=== PATIENT | male | born 1930 | race Caucasian/White ===

== ENCOUNTER 2017-02-22 10:38 | Emergency (ER) | payer BC, OTHER ==
[2017-02-22 10:54] VITALS: BP 153/80; PULSE 93; TEMP 97.3; BMI 28.1
--- NOTE | 2017-02-22 11:30 | PDOC ---
History of Present Illness - General History Source: Patient, Old Records Exam Limitations: No Limitations <Lobo Cobb - Last Filed: 02/22/17 14:41> <Markus Rivera - Last Filed: 02/23/17 16:58> - General Chief Complaint: Chest Pain Stated Complaint: CHEST PAIN Time Seen by Provider: 02/22/17 11:22 - History of Present Illness Initial Comments: The patient is a 86 year old male, former smoker, with a significant past medical history of HTN, hypercholesterolemia and CAD s/p coronary bypass, who presents to the emergency department today for further evaluation of chest pain just prior to presenting. The patient states that he was cleaning his car when he began to experience rapid onset chest pain and was associated with diaphoresis. The patient described his episode of chest pain as right sided, 10 minutes in duration, and squeezing/tightness in sensation but notes that his pain has resolved. He states that his chest pain was moderately alleviated when taking deep breaths and did not note any exacerbating factors. He reports associated frontal lobe headache that has since resolved. The patient states that he does not follow with a securities settlement processor and has not seen a securities settlement processor since his open heart surgery (2012). PT violetta any recent exertioanl chest pain or shortness of breath. The patient denies fever, cough, and cold symptoms. The patient denies nausea, vomiting, and diarrhea. The patient denies lightheadedness, cough, and shortness of breath. PCP: Dr. Anmol Casey [phone] PAST MEDICAL HISTORY: HTN, hypercholesterolemia and CAD s/p coronary bypass PAST SURGICAL HISTORY: Coronary bypass (2012) FAMILY HISTORY: Noncontributory SOCIAL HISTORY: Former smoker MEDICATIONS: Reviewed ALLERGIES: As per nursing notes (Lobo Cobb) Past History <Lobo Cobb - Last Filed: 02/22/17 14:41> - Past Medical History Cardiac Disorders: Yes (bypass) HTN: Yes Hypercholesterolemia: Yes - Surgical History Cardiac Surgery: Yes (OPEN HEART SX) - Psycho/Social/Smoking Cessation Hx Anxiety: No Suicidal Ideation: No Smoking Status: No Smoking History: Former smoker Have you smoked in the past 12 months: No Number of Cigarettes Smoked Daily: 0 Information on smoking cessation initiated: No Hx Alcohol Use: No Drug/Substance Use Hx: No <Errol Riveraan - Last Filed: 02/23/17 16:58> - Past Medical History Allergies/Adverse Reactions: Allergies Allergy/AdvReac Type Severity Reaction Status Date / Time No Known Allergies Allergy Verified 02/22/17 10:50 Home Medications: Ambulatory Orders Lisinopril 10 mg PO DAILY 02/22/17 Review of Systems - Review of Systems Able to Perform ROS?: Yes <Lobo Cobb - Last Filed: 02/22/17 14:41> <Markus Rivera - Last Filed: 02/23/17 16:58> - Review of Systems Comments:: CONSTITUTIONAL: Reported: Diaphoresis No reported: Fever, Chills, Generalized Weakness, Malaise, Loss of Appetite HEENT: No reported: Rhinorrhea, Nasal Congestion, Throat Pain, Throat Swelling, Difficulty Swallowing, Mouth Swelling, Ear Pain, Eye Pain, Visual Changes CARDIOVASCULAR: Reported: Chest pain No reported: Syncope, Palpitations, Irregular Heart Rate, Lightheadedness, Peripheral Edema RESPIRATORY: No reported: Cough, Shortness of Breath, SOB with Exertion, Orthopnea, Wheezing , Stridor, Hemoptysis GASTROINTESTINAL: No reported: Abdominal pain, Abdominal Distension, Nausea, Vomiting, Diarrhea, Constipation, Melena, Hematochezia GENITOURINARY: No reported: Dysuria, Frequency, Urgency, Hesitancy, Flank Pain, Genital Pain MUSCULOSKELETAL: No reported: Myalgia, Arthralgia, Joint Swelling, Back pain, Neck Pain SKIN: No reported: Rash, Itching, Pallor HEMATOLOGIC/IMMUNOLOGIC: No reported: Easy Bleeding, Easy Bruising, Lymphadenopathy, Frequent infections ENDOCRINE: No reported: Unexplained Weight Gain, Unexplained Weight Loss, Heat Intolerance , Cold Intolerance NEUROLOGIC: Reported: Headache No reported: Focal Weakness, Paresthesias, Vertigo, Lightheadedness, Unsteady Gait, Seizure, Mental Status Changes, Incontinence PSYCHIATRIC: No reported: Anxiety, Depression (Lobo Cobb) *Physical Exam <Lobo Cobb - Last Filed: 02/22/17 14:41> <Markus Rivera - Last Filed: 02/23/17 16:58> - Vital Signs Last Vital Signs Temp Pulse Resp BP Pulse Ox 97.3 F L 93 H 19 153/80 98 02/22/17 10:50 02/22/17 10:50 02/22/17 10:50 02/22/17 10:50 02/22/17 10:50 - Physical Exam Comments: GENERAL: The patient is awake, alert, and fully oriented, Nontoxic - in no acute distress. HEAD: Normocephalic, atraumatic. EYES: extraocular movements intact, sclera anicteric, conjunctiva clear. ENT: Normal voice, Moist mucous membranes. NECK: Normal range of motion, No JVD LUNGS: Breath sounds equal, clear to auscultation bilaterally. No wheezes, no rhonchi, no rales. HEART: Regular rate, regular rhythm, normal S1 and S2 without murmur, rub or gallop. s/p cabg ABDOMEN: Soft, nontender, normoactive bowel sounds. No guarding, no rebound. No masses. No CVA tenderness EXTREMITIES: Normal range of motion, no edema. No clubbing or cyanosis. No cords , erythema, or tenderness. NEUROLOGICAL: No facial asymmetry, Normal speech, normal gait. PSYCH: Normal mood, normal affect. SKIN: Warm, Dry, normal turgor. (Lobo Cobb) Heart Score/ECG Review <Lobo Cobb - Last Filed: 02/22/17 14:41> - History History: Slightly suspicious - Electrocardiogram EKG: Non specific repolarization disturbance - Age Age: >/= 65 - Risk Factors Risk Factors Heart Score: Yes Hx Hypercholesterolemia, Yes Hx Hypertension, Yes Hx Obesity Based on the list above the patient has:: >/=3 risk factors or Hx atherosclerotic disease <Markus Rivera - Last Filed: 02/23/17 16:58> - ECG Impressions Comment:: 02/22/17 12:03 Twelve-lead EKG was performed and reviewed by me. There is normal sinus rhythm with a normal rate. rate of 86 left axis deviation left bundle branch block (Markus Rivera) ED Treatment Course - LABORATORY CBC & Chemistry Diagram: 02/22/17 11:40 02/22/17 12:50 <Lobo Cobb - Last Filed: 02/22/17 14:41> - LABORATORY CBC & Chemistry Diagram: 02/22/17 11:40 02/22/17 12:50 <Markus Rivera - Last Filed: 02/23/17 16:58> - ADDITIONAL ORDERS Additional order review: 02/22/17 11:40 RBC 4.93 MCV 88.6 MCHC 33.0 RDW 14.2 MPV 9.8 Neutrophils % 57.8 Lymphocytes % 25.9 Monocytes % 10.2 Eosinophils % 5.2 H Basophils % 0.9 - RADIOLOGY Radiology Studies Ordered: Category Date Time Status CHEST X-RAY PORTABLE* [RAD] Stat Radiology 02/22/17 11:33 Completed Radiograph Interpretation: EXAM#: TYPE/EXAM: RESULT: [id number] RAD/CHEST X-RAY PORTABLE* Chest pain. Single AP portable chest x-ray. Comparison study June 22, 2014. Sternal wires. No evidence of pneumonia, CHF, pleural effusion or pneumothorax. Unremarkable contour of the cardiomediastinal silhouette. The right diaphragm is slightly elevated. Intact visualized osseous structures. Impression. No evidence of active pulmonary disease. Reported By: Chun Vasquez MD 02/22/17 1157 (Lobo Cobb) - Medications Given in the ED: ED Medications Discontinued Medications Generic Name Dose Route Start Last Admin Trade Name Freq PRN Reason Stop Dose Admin Aspirin 162 mg 02/22/17 11:33 02/22/17 11:49 Asa - PO 02/22/17 11:34 162 mg ONCE ONE Administration Medical Decision Making <Lobo Cobb - Last Filed: 02/22/17 14:41> <Markus Rivera - Last Filed: 02/23/17 16:58> - Medical Decision Making 02/22/17 14:19 Dr. Casey paged overhead. 02/22/17 14:19 Dr. Casey returned page. Case discussed. Agreed to admit. Patient wants to leave against medical advice. (Lobo Cobb) 02/22/17 14:23 86y M hxof CAD presents with R sided chest pressure associated with diaphoresis just prior to presentation. symptoms lasted for 15-20 minutes and had resolved by the itme he came to the ED. The pt denies any complaints currently. His exam is unremarkable. pts ekg shows Left axis devation and left bundle branch block pts trop is negative x 1 pt given ASA plan is to observe the patiene due to significant cardiac history case dw dr. Casey - agree with observation stay due to concern for ACS dr. casey states pt is noncomplaint and hasnt followed up reguarly with a securities settlement processor after discussion with the patient, he declines to stay in the hospital. he also declines obtaining a repeat troponing. i had an extensive discussion wiht the patient regarding the inability to rule out any cardiac disease with one troponin, and that even if he had a large GA, the initial troponin may be negative the pt states he understands but still declines to stay. the pt is alert and oriented x 3, and i beleive the has the capacity to understand the risks and benefits of his decision will have the pt follow u pwith dr. casey and cardiology the pt was made aware that he can return at any time to complete his workup. Patient is alert and oriented, and expressed that they would like to leave AGAINST MEDICAL ADVICE. I discussed with them the risks of leaving include , missed/delayed diagnosis of myocardial infarction, permanent disability. Patient states he would like to leave because he feels fine and has already been here for 4 hours. I believe that the patient understands our discussion and is capable of making an informed decision about leaving against medical advice. I also discussed with the patient that they may return at any time to complete their workup. (Markus Rivera) *DC/Admit/Observation/Transfer <WadesofyaLobo - Last Filed: 02/22/17 14:41> - Discharge Dispostion Admit: No <Markus Rivera - Last Filed: 02/23/17 16:58> Diagnosis at time of Disposition: Chest pain Qualifiers: Chest pain type: unspecified Qualified Code(s): R07.9 - Chest pain, unspecified - Referrals Referrals: Anmol Casey MD [Primary Care Provider] - Roosevelt Ashraf MD [Staff Physician] - - Patient Instructions Printed Discharge Instructions: DI for Chest Pain Additional Instructions: You are electing to leave against medical advice. We have not completed our workup for your complaint of chest pain, and the tests we have done so far DOES NOT MEAN you are fine nor your heart is healthy. You may return at any time to complete your workup and you should follow up with dr. Casey and Dr. Ashraf as soon as possible to ensure your heart is healthy. Continue taking your medications and aspirin daily. Print Language: HUNGARIAN - Attestations Scribe Attestion: Documentation prepared by Lobo Cobb, acting as medical lab scientist for Markus Rivera MD. (Reza,Lobo)
[2017-02-22] MEDS ORDERED: ASPIRIN 81 MG CHEWABLE TABLETS PO ONE (11:33)
[2017-02-22] MEDS ORDERED: ASPIRIN 81 MG CHEWABLE TABLETS ONE (11:46)
[2017-02-22 11:49] LABS: BASOPHIL 0.9 % (0-2.0); EOSINOPHIL 5.2 % (0-4.5); MCH 29.3 pg (25.7-33.7); MEAN CELL VOLUME 88.6 fl (80-96); MEAN PLT VOLUME 9.8 fl (7.5-11.1); NEUTROPHILS 57.8 % (42.8-82.8); PLATELET COUNT 140 K/MM3 (134-434); RDW 14.2 % (11.9-15.9); WHITE BLOOD COUNT 6.6 K/mm3 (4.0-10.0)
[2017-02-22 13:46] LABS: ALBUMIN 3.6 g/dl (3.4-5.0); BILIRUBIN,TOTAL 0.4 mg/dL (0.2-1.0); CALCIUM 8.5 mg/dL (8.5-10.1); COCKROFT - GAULT 38.27; CREATININE 1.6 mg/dL (0.7-1.3); TOT PROT 7.2 g/dl (6.4-8.2)
[2017-02-22 13:49] LABS: TROPONIN I 0.04 ng/ml (0.00-0.05)
--- NOTE | 2017-02-25 12:56 | EKG ---
Test Reason : Blood Pressure : / mmHG Vent. Rate : 086 BPM Atrial Rate : 086 BPM P-R Int : 172 ms QRS Dur : 126 ms QT Int : 386 ms P-R-T Axes : 006 -61 136 degrees QTc Int : 461 ms NORMAL SINUS RHYTHM LEFT AXIS DEVIATION LEFT BUNDLE BRANCH BLOCK ABNORMAL ECG WHEN COMPARED WITH ECG OF 22-JUN-2014 13:30, NO SIGNIFICANT CHANGE WAS FOUND Confirmed by YEN EDWARDS MD ([id number]) on 02/25/2017 12:56:25 PM Referred By: Confirmed By:YEN EDWARDS MD
== END 2017-02-22 15:00 | disposition home or self-care (01) ==
LOC: JER 10:38
DX: R07.9 Chest pain, unspecified (principal); E78.00 Pure hypercholesterolemia, unspecified; I25.10 Atherosclerotic heart disease of native coronary artery without angina pectoris; I10 Essential (primary) hypertension; Z95.1 Presence of aortocoronary bypass graft
CPT/HCPCS: 36415; 71010-TC; 80053; 82550; 84484; 85025; 93005; 93010; 99284-25

== ENCOUNTER 2017-05-03 11:56 | Inpatient (IN) | payer BC, OTHER ==
[2017-05-03 12:05] VITALS: BMI 26.6
--- NOTE | 2017-05-03 12:29 | PDOC ---
History of Present Illness - General History Source: Patient - History of Present Illness Presenting Symptoms: Chest Pain, Dizziness Timing/Duration: reports: intermittent Chest Pain Radiation: reports: no radiation <Sachin Clark Last Filed: 05/03/17 14:30> <NicoleMarkus - Last Filed: 05/04/17 17:47> - General Chief Complaint: Revisit,Radiology Variance Stated Complaint: SENT PCP, POSSIBLE ABNORMAL CHEST CT Time Seen by Provider: 05/03/17 12:09 Past History - Past Medical History Cardiac Disorders: Yes (bypass) HTN: Yes Hypercholesterolemia: Yes - Surgical History Cardiac Surgery: Yes (OPEN HEART SX) - Immunization History Immunization Up to Date: Yes - Psycho/Social/Smoking Cessation Hx Anxiety: No Suicidal Ideation: No Smoking Status: No Smoking History: Never smoked Have you smoked in the past 12 months: No Number of Cigarettes Smoked Daily: 0 Information on smoking cessation initiated: No Hx Alcohol Use: No Drug/Substance Use Hx: No Substance Use Type: None <EduardoNinaEarnestineNicki Last Filed: 05/03/17 14:30> <Markus Rivera - Last Filed: 05/04/17 17:47> - Past Medical History Allergies/Adverse Reactions: Allergies Allergy/AdvReac Type Severity Reaction Status Date / Time amoxicillin trihydrate Allergy Verified 05/03/17 12:05 [From Augmentin] potassium clavulanate Allergy Verified 05/03/17 12:05 [From Augmentin] Home Medications: Ambulatory Orders Lisinopril 10 mg PO DAILY 02/22/17 Review of Systems - Review of Systems Constitutional: No: Chills, Fever Respiratory: Yes: Shortness of Breath. No: Cough, Wheezing Cardiac (ROS): Yes: Chest Pain, Lightheadedness. No: Palpitations, Syncope ABD/GI: No: Nausea, Vomiting <Nina ClarkEarnestineNicki Last Filed: 05/03/17 14:30> *Physical Exam - Physical Exam General Appearance: Yes: Appropriately Dressed. No: Apparent Distress HEENT: positive: Normal Voice Neck: positive: Supple Respiratory/Chest: positive: Lungs Clear, Normal Breath Sounds. negative: Respiratory Distress Cardiovascular: positive: Regular Rate, S1, S2 Gastrointestinal/Abdominal: positive: Soft. negative: Tender Musculoskeletal: negative: CVA Tenderness Extremity: positive: Normal Inspection Integumentary: positive: Dry, Warm Neurologic: positive: Fully Oriented, Alert, Normal Mood/Affect <Sachin Clark - Last Filed: 05/03/17 14:30> - Vital Signs Last Vital Signs Temp Pulse Resp BP Pulse Ox 98 F 65 20 125/65 98 05/04/17 14:31 05/04/17 14:31 05/04/17 14:31 05/04/17 14:31 05/04/17 13:00 ED Treatment Course - LABORATORY CBC & Chemistry Diagram: 05/03/17 13:05 05/03/17 13:05 <Sachin Clark - Last Filed: 05/03/17 14:30> - LABORATORY CBC & Chemistry Diagram: 05/04/17 05:20 05/04/17 05:20 <Markus Rivera - Last Filed: 05/04/17 17:47> - ADDITIONAL ORDERS Additional order review: 05/03/17 13:05 RBC 4.50 MCV 87.1 MCHC 33.2 RDW 13.5 MPV 9.8 Neutrophils % 54.0 Lymphocytes % 15.0 D Monocytes % 13.0 H Eosinophils % 16.0 H D Basophils % 2.0 - Medications Given in the ED: ED Medications Discontinued Medications Generic Name Dose Route Start Last Admin Trade Name Isidoro PRN Reason Stop Dose Admin Albuterol/Ipratropium 1 amp 05/03/17 16:13 05/03/17 18:15 Duoneb - NEB 05/03/17 16:14 1 amp ONCE ONE Administration Furosemide 40 mg 05/03/17 16:30 05/04/17 09:43 Lasix Injection - IVPUSH 40 mg DAILY JEREMÍAS Administration Furosemide 40 mg 05/04/17 13:45 05/04/17 14:15 Lasix Injection - IVPUSH Not Given DAILY JEREMÍAS Azithromycin 250 mls @ 250 mls/hr 05/03/17 16:15 05/03/17 17:47 Zithromax 500mg Ivpb (Pre-Docked) IVPB 05/03/17 17:14 250 mls/hr ONCE ONE Administration Azithromycin 250 mls @ 250 mls/hr 05/04/17 10:00 05/04/17 10:31 Zithromax 500mg Ivpb (Pre-Docked) IVPB 05/07/17 10:59 Not Given DAILY JEREMÍAS Prednisone 60 mg 05/03/17 16:13 05/03/17 17:47 Deltasone - PO 05/03/17 16:14 60 mg ONCE ONE Administration Medical Decision Making <Sachin Clark - Last Filed: 05/03/17 14:30> <Markus Rivera - Last Filed: 05/04/17 17:47> - Medical Decision Making 05/03/17 12:22 87 yo male, former smoker, HTN, HLD, CAD s/p CABG, here w/ CP. Pt states for the past several days he has an experiencing vague chest pain with difficulty breathing especially at night and feels weakness in both of his legs. Denies nausea, vomiting, palpitations, leg pain or swelling. Patient states he was seen by his PMD, Dr. Knowles, yesterday and had a chest CT done and received call this a.m. that CT was "abnormal", but does not know results specifically. Referred to ED. Of note, patient was seen at [facility] 5 days ago for dizziness and diagnosed with "inner ear infections" and started on amoxicillin. Patient states he took 2 doses and stopped because he developed chest pain w/ shortness of bad breath and attributes symptoms to the amoxicillin. States despite not taking amoxicillin at this time, he continues to have symptoms. 2 months ago, ptient was seen in the ED at [facility] with chest pain and left AMA. No recent stress test. No unexplained weight loss See exam CP w/ SOB in former smoker and CABG w/ "abnormal" CT chest this am Stable and well sandrita in ED w/ unremarkable exam Will contact PMD for CT report -labs/ekg/cxr in ED 05/03/17 12:30 05/03/17 13:[address] Knowles, states CT chest this am showed hazy opacities consistent with volume overload, no obvious infiltrate. States patient complaining of orthopnea and CP. Patient non-compliant with meds, took himself off aspirin, statin, beta brooklynn, now only on lisinopril. Wants patient admitted to tele under the hospitalist service. Of note, BNP >7K, no old for comparison. Rest of labs and CXR unremarkable. As patient not clinically volume overloaded, will hold off on Lasix at this time. Dr Knowles currently at bedside 05/03/17 13:37 05/03/17 13:37 Case d/w hospitalist and pt admitted (Sachin Clark) 05/04/17 17:46 The patient was seen and evaluated in conjunction with TEJAL Clark under my direct supervision, ancillary studies were reviewed. I agree with the plan as outlined by TEJAL Clark . (Markus Rivera) *DC/Admit/Observation/Transfer - Discharge Dispostion Admit: Yes <Sachin Clark - Last Filed: 05/03/17 14:30> <Markus Rivera - Last Filed: 05/04/17 17:47> Diagnosis at time of Disposition: Orthopnea Chest pain Qualifiers: Chest pain type: unspecified Qualified Code(s): R07.9 - Chest pain, unspecified - Discharge Dispostion Disposition: HOME Condition at time of disposition: Stable - Referrals
[2017-05-03 13:16] LABS: MCH 28.9 pg (25.7-33.7); MCHC 33.2 g/dl (32.0-35.9); MEAN CELL VOLUME 87.1 fl (80-96); MEAN PLT VOLUME 9.8 fl (7.5-11.1); PLATELET COUNT 149 K/MM3 (134-434); RDW 13.5 % (11.9-15.9); WHITE BLOOD COUNT 6.4 K/mm3 (4.0-10.0)
--- NOTE | 2017-05-03 13:32 | PN ---
Physical Exam: SUBJECTIVE: Patient seen and examined OBJECTIVE: Vital Signs Period Temp Pulse Resp BP Sys/العلي Pulse Ox Last 24 Hr 97.6 F 86 18 148/76 98 GENERAL: The patient is awake, alert, and fully oriented, in no acute distress. HEAD: Normal with no signs of trauma. EYES: PERRL, extraocular movements intact, sclera anicteric, conjunctiva clear. No ptosis. ENT: Ears normal, nares patent, oropharynx clear without exudates, moist mucous membranes. NECK: Trachea midline, full range of motion, supple. LUNGS: Breath sounds equal, clear to auscultation bilaterally, no wheezes, no crackles, no accessory muscle use. HEART: Regular rate and rhythm, S1, S2 without murmur, rub or gallop. ABDOMEN: Soft, nontender, nondistended, normoactive bowel sounds, no guarding, no rebound, no hepatosplenomegaly, no masses. EXTREMITIES: 2+ pulses, warm, well-perfused, no edema. NEUROLOGICAL: Cranial nerves II through XII grossly intact. Normal speech, gait not observed. PSYCH: Normal mood, normal affect. SKIN: Warm, dry, normal turgor, no rashes or lesions noted Laboratory Results - last 24 hr 05/03/17 13:05 WBC 6.4 RBC 4.50 Hgb 13.0 Hct 39.2 MCV 87.1 MCH 28.9 MCHC 33.2 RDW 13.5 Plt Count 149 MPV 9.8 Neutrophils % Y Lymphocytes % Y ASSESSMENT/PLAN:
[2017-05-03 13:50] LABS: ALBUMIN 3.9 g/dl (3.4-5.0); ANION GAP 7 (8-16); CALCIUM 8.8 mg/dL (8.5-10.1); CO2 29 mmol/L (21-32); CREATININE 1.8 mg/dL (0.7-1.3); GLUCOSE,RANDOM 99 mg/dL (74-106); SGOT/AST 17 U/L (15-37); SGPT/ALT 16 U/L (12-78)
[2017-05-03 13:57] LABS: ALK PHOS 83 U/L (45-117); BILIRUBIN,TOTAL 0.7 mg/dL (0.2-1.0); TROPONIN I 0.03 ng/ml (0.00-0.05)
[2017-05-03] MEDS ORDERED: ACETAMINOPHEN 325 MG TABLET (FP) PO PRN (15:22)
--- NOTE | 2017-05-03 15:25 | HP ---
CHIEF COMPLAINT: Shortness of breath PCP: Dr. Casey HISTORY OF PRESENT ILLNESS: This is an 87 year old male with a history of HTN and CAD s/p CABG x 5 yrs ago at [facility] who presents to the ED complaining of one week of intermittent chest pain, dry cough, dyspnea on minimal exertion (<1 block ET), and new orthopnea. He attributes the symptoms to taking amoxicillin, which was prescribed to him about [address] [facility] for "inner ear infection" (patient states he went to that ED with a complaint of chest pain). ER course was notable for: (1) EKG: NSR, no ischemic changes (2) CXR: No acute process (3) Cr 1.8 (1.6 in February, 1.2 2013) (4) BNP 7034 (5) Troponin 0.03 (6) Eiosinophils 16.0% Recent Travel: Non PAST MEDICAL HISTORY: As above PAST SURGICAL HISTORY: CABG, ?ear surgery Social History: , lives alone, independent in ADLs. 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 Smokin pack-year history, quit age 30 after an episode of hemoptysis Alcohol: None Allergies amoxicillin trihydrate [From Augmentin] Allergy (Verified 05/03/17 12:05) potassium clavulanate [From Augmentin] Allergy (Verified 05/03/17 12:05) HOME MEDICATIONS: Home Medications Medication Instructions Recorded Lisinopril 10 mg PO DAILY 02/22/17 REVIEW OF SYSTEMS CONSTITUTIONAL: Absent: fever, chills, diaphoresis, generalized weakness, malaise, loss of appetite, weight change HEENT: Absent: rhinorrhea, nasal congestion, throat pain, throat swelling, difficulty swallowing, mouth swelling, ear pain, eye pain, visual changes CARDIOVASCULAR: Intermittent chest pain, dyspnea on minimal exertion, orthopnea Absent: syncope, palpitations, irregular heart rate, lightheadedness, peripheral edema RESPIRATORY: Dry cough Absent: stridor, hemoptysis GASTROINTESTINAL: Absent: abdominal pain, abdominal distension, nausea, vomiting, diarrhea, constipation, melena, hematochezia GENITOURINARY: Absent: dysuria, frequency, urgency, hesitancy, hematuria, flank pain, genital pain MUSCULOSKELETAL: Absent: myalgia, arthralgia, joint swelling, back pain, neck pain SKIN: Absent: rash, itching, pallor HEMATOLOGIC/IMMUNOLOGIC: Absent: easy bleeding, easy bruising, lymphadenopathy, frequent infections ENDOCRINE: Absent: unexplained weight gain, unexplained weight loss, heat intolerance, cold intolerance NEUROLOGIC: Absent: headache, focal weakness or paresthesias, dizziness, unsteady gait, seizure, mental status changes, bladder or bowel incontinence PSYCHIATRIC: Absent: anxiety, depression, suicidal or homicidal ideation, hallucinations. PHYSICAL EXAMINATION Vital Signs - 24 hr 05/03/17 14:33 Temperature 98 F Pulse Rate [ 100 H Right Radial] Respiratory 22 Rate Blood Pressure 154/86 [Left Arm] O2 Sat by Pulse 98 Oximetry (%) GENERAL: Awake, alert, and fully oriented, in no acute distress. HEAD: Normal with no signs of trauma. EYES: Pupils equal, round and reactive to light, extraocular movements intact, sclera anicteric, conjunctiva clear. No lid lag. EARS, NOSE, THROAT: Ears normal, nares patent, oropharynx clear without exudates. Moist mucous membranes. NECK: Normal range of motion, supple without lymphadenopathy, JVD, or masses. LUNGS: Expiratory wheezes in all lung desir, coughing during exam HEART: Regular rate and rhythm, normal S1 and S2 without murmur, rub or gallop. ABDOMEN: Soft, nontender, not distended, normoactive bowel sounds, no guarding, no rebound, no masses. No hepatomegaly or splenomegaly. MUSCULOSKELETAL: Normal range of motion at all joints. No bony deformities or tenderness. No CVA tenderness. UPPER EXTREMITIES: 2+ pulses, warm, well-perfused. No cyanosis. No clubbing. No peripheral edema. LOWER EXTREMITIES: 2+ pulses, warm, well-perfused. No calf tenderness. 1+ pitting LE edema; patient states is chronic s/p CABG NEUROLOGICAL: Cranial nerves II-XII intact. Normal speech. PSYCHIATRIC: Cooperative. Good eye contact. Appropriate mood and affect. SKIN: Warm, dry, normal turgor, no rashes or lesions noted, normal capillary refill. ASSESSMENT/PLAN: Problem List - Problem (1) Dyspnea on exertion Assessment/Plan: -With cough, orthopnea, intermittent chest pain -Await results of outpatient CT scan done yesterday -Echocardiogram to assess heart structure and function -Trial of Lasix 20mg IVP daily - will need to monitor creatinine closely -I/O, daily weights -Serial troponins to rule out CO -Prednisone, DuoNeb followed by albuterol nebs, and azithromycin for likely acute bronchitis -Pulmonary following Code(s): R06.09 - OTHER FORMS OF DYSPNEA (2) Hypertension Assessment/Plan: -Hold Lisinopril in setting of renal insufficiency Code(s): I10 - ESSENTIAL (PRIMARY) HYPERTENSION (3) CAD (coronary artery disease) Assessment/Plan: -Patient is non-compliant with BB and ASA at home -Would re-start BB when bronchospasm and acute CHF resolved, ASA now Code(s): I25.10 - ATHSCL HEART DISEASE OF [place] CORONARY ARTERY W/O ANG PCTRS (4) Renal insufficiency Assessment/Plan: -Send urinalysis -Send urine electrolytes -Hold Lisinopril in setting of likely EDITA-on-CKD -Follow closely while on Lasix -Renal evaluation Code(s): N28.9 - DISORDER OF KIDNEY AND URETER, UNSPECIFIED (5) DVT prophylaxis Assessment/Plan: -[facility] -PT Code(s): [id number] - Visit type - Emergency Visit Emergency Visit: Yes ED Registration Date: 05/03/17 Care time: The patient presented to the Emergency Department on the above date and was hospitalized for further evaluation of their emergent condition. - New Patient This patient is new to me today: Yes Date on this admission: 05/03/17 - Critical Care Critical Care patient: No
[2017-05-03 15:54] LABS: PLATELET ESTIMATE ADEQUATE (NORMAL)
--- NOTE | 2017-05-03 16:03 | CON.PULM ---
Consult Consult Specialty:: PULMONARY Referred by:: TAISHA Reason for Consultation:: SOB/ORTHOPNEA - History of Present Illness Chief Complaint: SOB/WEAKNESS/WEIGHT LOSS History of Present Illness: 87 WHITE MALE WAS IN MY OFFICE YESTERDAY AND REFUSED ADMISSION TO HOSPITAL. HE PRESENTED WITH SOB/LEG WEAKNESS/LOSS OF APPETITE AND CONGESTED COUGH. PATIENT STATED HE HAD BEEN TO [facility] THE DAY BEFORE WHERE HE WAS DIAGNOSED WITH OTITIS AND WAS GIVEN AUGMENTIN AND SENT HOME. THE NEXT MORNING HE STATES HE COULDN'T BREATH AND WAS COUGHING. HE ADMITS TO ORTHOPNEA BUT DOES NOT HAVE CHEST PAIN PALPS OR SYNCOPE. HE HAS SELF D/JAYJAY HIS BETA SOCORRO/ASA/ STATIN POST CABG HE SAYS THEY ARE MAKING HIM ILL. HE CONTINUES TO BE COMPLIANT WITH LISINOPRIL. 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 Cardio/Vascular: Yes: CAD, CHF, HTN, Hyperlipdemia Pulmonary: Yes: COPD Gastrointestinal: No: Ascites, Cancer, Constipation, Crohn's Disease, Diverticulitis, Diverticulosis, Esophageal Varices, Gastritis, GERD, GI Bleed, Hemorrhoids, Hiatal Hernia, Inflamatory Bowel Disease, Irritable Bowel Disease, Pancreatitis, Peptic Ulcer Disease, Ulcerative Colitis, Other Hepatobiliary: No: Cirrhosis, Cholelithiasis, Cholecystitis, Choledocholithiasis , Hepatitis A, Hepatitis B, Hepatitis C, Other Renal/: Yes: Renal Inusuff Infectious Disease: No: AIDS, C-Diff, Herpes Zoster, HIV, MRSA, STD's, Tuberculosis, VREF, Other Psych: No: Addictions, Anxiety, Bipolar, Depression, Panic, Psychosis, Schizophrenia, Other Endocrine: No: Vinicio's Disease, Rick's Disease, Diabetes Insipidus, Diabetes Mellitus, Hyperparathyroidism, Hyperthyroidism, Hypothyroidism, Osteopenia, SIADH, Other - Alcohol/Substance Use Hx Alcohol Use: No - Smoking History Smoking history: Never smoked Have you smoked in the past 12 months: No Aproximately how many cigarettes per day: 0 Home Medications - Allergies Allergies/Adverse Reactions: Allergies Allergy/AdvReac Type Severity Reaction Status Date / Time amoxicillin trihydrate Allergy Verified 05/03/17 12:05 [From Augmentin] potassium clavulanate Allergy Verified 05/03/17 12:05 [From Augmentin] - Home Medications Home Medications: Ambulatory Orders Lisinopril 10 mg PO DAILY 02/22/17 Family Disease History - Family Disease History Family History: Unremarkable Review of Systems - Review of Systems Constitutional: reports: Lethargy, Night Sweats, Unintentional Wgt. Loss, Weakness Eyes: reports: No Symptoms HENT: reports: Hearing Loss Neck: reports: No Symptoms Cardiovascular: reports: Shortness of Breath Respiratory: reports: Cough, Exercise Intolerance, SOB on Exertion Gastrointestinal: denies: No Symptoms, Abdominal Pain, Bloating, Constipation, Diarrhea, Dysphagia, Indigestion, Melena, Nausea, Rectal Bleeding, Vomiting, Vomiting Blood, Other Genitourinary: denies: No Symptoms, Burning, Discharge, Dysuria, Flank Pain, Frequency, Hematuria, Incontinence, Lesions, Menses, Pain, Testicular Mass, Testicular Pain, Testicular Swelling, Urgency, Vaginal Bleeding, Other Musculoskeletal: reports: Back Pain Integumentary: reports: No Symptoms Neurological: reports: Dizziness Physical Exam Vital Sings: Vital Signs Temperature 98 F 05/03/17 14:33 Pulse Rate 100 H 05/03/17 14:33 Respiratory Rate 22 05/03/17 14:33 Blood Pressure 154/86 05/03/17 14:33 O2 Sat by Pulse Oximetry (%) 98 05/03/17 14:33 Constitutional: Yes: No Distress, Calm Eyes: Yes: EOM Intact HENT: Yes: Normocephalic Neck: Yes: Trachea Midline Cardiovascular: Yes: Regular Rate and Rhythm Respiratory: Yes: Cough, Rales, Rhonchi Gastrointestinal: Yes: Normal Bowel Sounds Edema: No Integumentary: Yes: WNL Neurological: Yes: Alert ...Motor Strength: WNL Psychiatric: Yes: Alert Imaging - Results Cat Scan: Image Reviewed Assessment/Plan LIKELY A/E CHF GIVEN ORTHOPNEA/ELEVATED BNP AND CT CHEST FINDINGS ?ACUTE BRONCHITIS ACUTE ON CHRONIC RENAL INSUFFICIENCY H/O CABG/HTN/HPL/COPD/ASHD SELF D/JAYJAY MOST POST CABG MEDS YEARS AGO FORMER SMOKER ECHO/MONITOR RENAL FUNCTION O2 SUPPLEMENTATION NEEDED TRIAL OF DIURETICS CONTINUE LISINOPRIL WOULD INITIATE ASA/STATIN/LOW DOSE BETA-SOCORRO ONCE CHF RESOLVED CARDIAC CONSULT DR ASIF/RENAL EVAL CONSIDER BRONCHODILATORS/ANTIBIOTICS Venkata BRINK MD
[2017-05-03] MEDS ORDERED: predniSONE 20 MG TABLET (UD) PO ONE (16:13)
[2017-05-03] MEDS ORDERED: ALBUTEROL SO4 0.083% IH SOL 2.5 MG/3 ML VIAL.NEB. NEB PRN (16:13)
[2017-05-03] MEDS ORDERED: ALBUTEROL SO4 2.5/IPRATROPIUM 0.5 INH SOL 3 ML VIAL.NEB. NEB ONE (16:13)
[2017-05-03] MEDS ORDERED: AZITHROMYCIN IVPB 250 ML IVPB ONE (16:15)
[2017-05-03] MEDS: FUROSEMIDE 40 MG/4 ML INJECTABLE VIAL IVPUSH SCH (17:47)
[2017-05-03 20:08] LABS: TROPONIN I 0.03 ng/ml (0.00-0.05)
[2017-05-03 20:33] LABS: URINE APPEARANCE CLEAR; URINE BILIRUBIN NEGATIVE (NEGATIVE); URINE BLOOD NEGATIVE (NEGATIVE); URINE COLOR YELLOW; URINE GLUCOSE (UA) NEGATIVE (NEGATIVE); URINE KETONE NEGATIVE (NEGATIVE); URINE LEUK ESTERASE NEGATIVE (NEGATIVE); URINE NITRITE NEGATIVE (NEGATIVE); URINE PROTEIN NEGATIVE (NEGATIVE); URINE UROBILINOGEN NEGATIVE mg/dL (0.2-1.0)
[2017-05-03] MEDS: DOCUSATE SODIUM 100 MG CAPSULE (FP) PO SCH (21:49)
[2017-05-03] MEDS: HEPARIN NA (PORCINE) 5,000 UNITS/ML 1ML VIAL SQ SCH (21:49)
--- NOTE | 2017-05-04 04:55 | HOSP ---
Subjective - Review of Symptoms Events since last encounter: Hospitalist Encounter Notified by RN that the patient's HR 115-120 after walking up and down the hallway Arrived to room, patient is alert, awake and oriented, sitting upright in a chair with O2- NC Patient denies palpitations, CP or SOB. Patient reports feeling anxious, states" I'm claustrophobic I can't sit still all night" VS- P- 117, R- 18, Sp02 97% Advised the patient to try relaxation techniques Instructed RN to reassess pt in 30 min, and to inform the percussion instructor if HR remains in 120's secondary to CHF avoidance of BB Will continue to monitor closely 0545- Notified by RN pt's HR is now 105 Physical Examination Vital Signs: Vital Signs Temperature 98.7 F 05/04/17 04:30 Pulse Rate 128 H 05/04/17 04:30 Respiratory Rate 20 05/04/17 04:30 Blood Pressure 143/62 05/04/17 04:30 O2 Sat by Pulse Oximetry (%) 97 05/03/17 21:34 Constitutional: Yes: Well Nourished, Anxious, Mild Distress Cardiovascular: Yes: Tachycardia, S1, S2 Respiratory: Yes: Diminished, On Nasal O2 Labs: Laboratory Results - last 24 hr 05/03/17 05/03/17 05/03/17 13:05 13:05 13:05 WBC 6.4 RBC 4.50 Hgb 13.0 Hct 39.2 MCV 87.1 MCH 28.9 MCHC 33.2 RDW 13.5 Plt Count 149 MPV 9.8 Neutrophils % 54.0 Lymphocytes % 15.0 D Monocytes % 13.0 H Eosinophils % 16.0 H D Basophils % 2.0 Differential Comment Manual diff done Platelet Estimate Adequate Sodium 140 Potassium 4.8 Chloride 104 Carbon Dioxide 29 D Anion Gap 7 L BUN 28 H Creatinine 1.8 H Creat Clearance w eGFR 35.87 Random Glucose 99 Calcium 8.8 Total Bilirubin 0.7 D AST 17 ALT 16 Alkaline Phosphatase 83 D Creatine Kinase 199 D Creatine Kinase Index 1.5 CK-MB (CK-2) 2.917 CK-MB (CK-2) Rel Index Cancelled Troponin I 0.03 B-Natriuretic Peptide 7034.36 H Total Protein 8.0 Albumin 3.9 Urine Color Urine Appearance Urine pH Ur Specific [place] Urine Protein Urine Glucose (UA) Urine Ketones Urine Blood Urine Nitrite Urine Bilirubin Urine Urobilinogen Ur Leukocyte Esterase 05/03/17 05/03/17 05/03/17 18:20 19:15 19:15 WBC RBC Hgb Hct MCV MCH MCHC RDW Plt Count MPV Neutrophils % Lymphocytes % Monocytes % Eosinophils % Basophils % Differential Comment Platelet Estimate Sodium Potassium Chloride Carbon Dioxide Anion Gap BUN Creatinine Creat Clearance w eGFR Random Glucose Calcium Total Bilirubin AST ALT Alkaline Phosphatase Creatine Kinase 166 Creatine Kinase Index CK-MB (CK-2) 2.38 CK-MB (CK-2) Rel Index Cancelled Troponin I 0.03 B-Natriuretic Peptide Total Protein Albumin Urine Color Yellow Urine Appearance Clear Urine pH 5.0 Ur Specific [place] 1.025 Urine Protein Negative Urine Glucose (UA) Negative Urine Ketones Negative Urine Blood Negative Urine Nitrite Negative Urine Bilirubin Negative Urine Urobilinogen Negative Ur Leukocyte Esterase Negative Intake & Output 05/01/17 05/02/17 05/03/17 05/04/17 23:59 23:59 23:59 23:59 Intake Total 10 Balance 10 Weight 77.111 kg Current Medications Generic Name Dose Route Start Last Admin Trade Name Freq PRN Reason Stop Dose Admin Acetaminophen 650 mg 05/03/17 15:22 Tylenol - PO Q6H PRN FEVER OR PAIN Albuterol Sulfate 1 amp 05/03/17 16:13 Ventolin 0.083% Nebulizer Soln - NEB Q6H PRN SHORT OF BREATH/WHEEZING Aspirin 81 mg 05/04/17 10:00 Ecotrin - PO DAILY JEREMÍAS Docusate Sodium 100 mg 05/03/17 22:00 05/03/17 21:49 Colace - PO 100 mg TID JEREMÍAS Administration Furosemide 40 mg 05/03/17 16:30 05/03/17 17:47 Lasix Injection - IVPUSH 40 mg DAILY JEREMÍAS Administration Heparin Sodium (Porcine) 5,000 unit 05/03/17 22:00 05/03/17 21:49 Heparin - SQ 5,000 unit TID JEREMÍAS Administration Azithromycin 250 mls @ 250 mls/hr 05/04/17 10:00 Zithromax 500mg Ivpb (Pre-Docked) IVPB 05/07/17 10:59 DAILY JEREMÍAS Prednisone 40 mg 05/04/17 10:00 Deltasone - PO DAILY JEREMÍAS
[2017-05-04] MEDS: DOCUSATE SODIUM 100 MG CAPSULE (FP) PO SCH ×3 (06:09→22:00)
[2017-05-04] MEDS: HEPARIN NA (PORCINE) 5,000 UNITS/ML 1ML VIAL SQ SCH ×2 (06:09→14:23)
[2017-05-04 07:34] LABS: BASOPHIL 0.3 % (0-2.0); EOSINOPHIL 0.1 % (0-4.5); MCH 29.1 pg (25.7-33.7); MCHC 33.2 g/dl (32.0-35.9); MEAN CELL VOLUME 87.7 fl (80-96); MEAN PLT VOLUME 10.2 fl (7.5-11.1); NEUTROPHILS 79.4 % (42.8-82.8); PLATELET COUNT 173 K/MM3 (134-434); RDW 13.7 % (11.9-15.9); WHITE BLOOD COUNT 5.4 K/mm3 (4.0-10.0)
[2017-05-04 08:24] LABS: ALBUMIN 3.9 g/dl (3.4-5.0); ANION GAP 10 (8-16); CALCIUM 9.2 mg/dL (8.5-10.1); CHOLESTEROL 188 mg/dL (50-200); CO2 23 mmol/L (21-32); GLUCOSE,RANDOM 169 mg/dL (74-106); MAGNESIUM 2.1 mg/dL (1.8-2.4); SGOT/AST 17 U/L (15-37); SGPT/ALT 17 U/L (12-78)
[2017-05-04 08:26] LABS: ALK PHOS 82 U/L (45-117); BILIRUBIN,TOTAL 0.6 mg/dL (0.2-1.0); CREATININE 2.1 mg/dL (0.7-1.3); LDL CHOLESTEROL (ONLY SJRH) 122 mg/dL (5-100); TOT PROT 8.4 g/dl (6.4-8.2); TROPONIN I 0.09 ng/ml (0.00-0.05)
[2017-05-04] MEDS: ASPIRIN COATED 81 MG TABLET.EC PO SCH (09:43)
[2017-05-04] MEDS: FUROSEMIDE 40 MG/4 ML INJECTABLE VIAL IVPUSH SCH (09:43)
[2017-05-04] MEDS: predniSONE 20 MG TABLET (UD) PO SCH (09:43)
[2017-05-04] MEDS ORDERED: AZITHROMYCIN IVPB 250 ML IVPB SCH (10:00)
[2017-05-04] MEDS: AZITHROMYCIN IVPB 250 ML IVPB SCH (10:30)
--- NOTE | 2017-05-04 11:47 | CONSULT ---
Consult Consult Specialty:: Nephrology ( Kanu/ Fady) Referred by:: Eleni Reason for Consultation:: This is an 87 year old male with a history of HTN and CAD s/p CABG x 5 yrs ago admitted with dry cough, dyspnea on minimal exertion (< 1 block ET), and new orthopnea. The patient had been on Amoxicillin for " Inner ear infection" - History of Present Illness Chief Complaint: Noted to have elevated Serum Creatinine and hence the renal consult. The patient reports that he has " prostate problems' amd had been taking medications for the same. 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 Cardio/Vascular: Yes: CAD, CHF, HTN, Hyperlipdemia Pulmonary: Yes: COPD Gastrointestinal: No: Ascites, Cancer, Constipation, Crohn's Disease, Diverticulitis, Diverticulosis, Esophageal Varices, Gastritis, GERD, GI Bleed, Hemorrhoids, Hiatal Hernia, Inflamatory Bowel Disease, Irritable Bowel Disease, Pancreatitis, Peptic Ulcer Disease, Ulcerative Colitis, Other Hepatobiliary: No: Cirrhosis, Cholelithiasis, Cholecystitis, Choledocholithiasis , Hepatitis A, Hepatitis B, Hepatitis C, Other Renal/: Yes: Renal Inusuff Infectious Disease: No: AIDS, C-Diff, Herpes Zoster, HIV, MRSA, STD's, Tuberculosis, VREF, Other Psych: No: Addictions, Anxiety, Bipolar, Depression, Panic, Psychosis, Schizophrenia, Other Endocrine: No: [place]'s Disease, Rick's Disease, Diabetes Insipidus, Diabetes Mellitus, Hyperparathyroidism, Hyperthyroidism, Hypothyroidism, Osteopenia, SIADH, Other - Past Surgical History Past Surgical History: Yes: CABG - Alcohol/Substance Use Hx Alcohol Use: No - Smoking History Smoking history: Former smoker Have you smoked in the past 12 months: No Aproximately how many cigarettes per day: 0 If you are a former smoker, when did you quit?: 1960 Home Medications - Allergies Allergies/Adverse Reactions: Allergies Allergy/AdvReac Type Severity Reaction Status Date / Time amoxicillin trihydrate Allergy Verified 05/03/17 12:05 [From Augmentin] potassium clavulanate Allergy Verified 05/03/17 12:05 [From Augmentin] - Home Medications Home Medications: Ambulatory Orders Lisinopril 10 mg PO DAILY 02/22/17 Review of Systems - Review of Systems Constitutional: reports: No Symptoms HENT: reports: No Symptoms Cardiovascular: reports: Chest Pain Respiratory: reports: Cough Gastrointestinal: denies: Abdominal Pain, Melena, Nausea Genitourinary: reports: Frequency (nocturia) Musculoskeletal: reports: Back Pain Integumentary: reports: No Symptoms Neurological: reports: No Symptoms Physical Exam Vital Signs: Vital Signs Temperature 98.3 F 05/04/17 08:00 Pulse Rate 111 H 05/04/17 08:00 Respiratory Rate 20 05/04/17 08:00 Blood Pressure 126/76 05/04/17 08:00 O2 Sat by Pulse Oximetry (%) 98 05/04/17 05:00 Constitutional: Yes: Well Nourished, No Distress HENT: Yes: Normocephalic Neck: Yes: Trachea Midline Cardiovascular: Yes: S1, S2 Respiratory: Yes: CTA Bilaterally, Cough Gastrointestinal: Yes: Normal Bowel Sounds, Soft Renal/: No: CVA Tenderness - Left, CVA Tenderness - Right Extremities: Yes: Other (s/p venous stripping for CABG) Peripheral Pulses WNL: Yes Neurological: Yes: Alert, Oriented Labs: CBC, BMP 05/04/17 05:20 05/04/17 05:20 Problem List - Problems (1) CAD (coronary artery disease) Code(s): I25.10 - ATHSCL HEART DISEASE OF [place] CORONARY ARTERY W/O ANG PCTRS (2) Dyspnea on exertion Code(s): R06.09 - OTHER FORMS OF DYSPNEA (3) Hypertension Code(s): I10 - ESSENTIAL (PRIMARY) HYPERTENSION (4) Acute kidney failure Code(s): N17.9 - ACUTE KIDNEY FAILURE, UNSPECIFIED (5) Chronic kidney disease (CKD) stage G3a/A2, moderately decreased glomerular filtration rate (GFR) between 45-59 mL/min/1.73 square meter and albuminuria creatinine ratio between 30-299 mg/g Code(s): N18.3 - CHRONIC KIDNEY DISEASE, STAGE 3 (MODERATE) Assessment/Plan This is an 87 year old male with a history of HTN and CAD s/p CABG x [address] [facility] who presents to the ED complaining of one week of intermittent chest pain , dry cough, dyspnea on minimal exertion. Cardiac w/u in peogress. The patient has abnormal Renal functions. Acute Kidney failure due to acute Hemodynamic factors, causing Renal Hypoperfusion. Most likely the patient has underlying Renal disease. The possibility of an enlarged prostate causing Urinary obstruction can not totally be ignored. Basic w/u as ordered. Will monitor the renal functions Thank you Will follow with you. Carina Bobby MD
--- NOTE | 2017-05-04 13:27 | PN ---
Progress Note (short form) - Note Progress Note: Feels a little better today. No CP. Some congested cough. Intake & Output 05/01/17 05/02/17 05/03/17 05/04/17 23:59 23:59 23:59 23:59 Intake Total 10 10 Balance 10 10 Weight 170 lb 189 lb 2 oz Last Vital Signs Temp Pulse Resp BP Pulse Ox 98.3 F 111 H 20 126/76 98 05/04/17 08:00 05/04/17 08:00 05/04/17 08:00 05/04/17 08:00 05/04/17 05:00 Active Medications Acetaminophen (Tylenol -) 650 mg PO Q6H PRN PRN Reason: FEVER OR PAIN Albuterol Sulfate (Ventolin 0.083% Nebulizer Soln -) 1 amp NEB Q6H PRN PRN Reason: SHORT OF BREATH/WHEEZING Aspirin (Ecotrin -) 81 mg PO DAILY [facility] Last Admin: 05/04/17 09:43 Dose: 81 mg Docusate Sodium (Colace -) 100 mg PO TID [facility] Last Admin: 05/04/17 06:09 Dose: 100 mg Heparin Sodium (Porcine) (Heparin -) 5,000 unit SQ TID [facility] Last Admin: 05/04/17 06:09 Dose: 5,000 unit Azithromycin (Zithromax 500mg Ivpb (Pre-Docked)) 250 mls @ 250 mls/hr IVPB DAILY [facility] Stop: 05/07/17 10:59 Last Admin: 05/04/17 10:30 Dose: 250 mls/hr Prednisone (Deltasone -) 40 mg PO DAILY [facility] Last Admin: 05/04/17 09:43 Dose: 40 mg Constitutional: Yes: NAD Eyes: Yes: EOM Intact HENT: Yes: Normocephalic Neck: Yes: Trachea Midline Cardiovascular: Yes: Regular Rate and Rhythm Respiratory: Yes: Cough, Rales/Rhonchi Gastrointestinal: Yes: Normal Bowel Sounds Edema: No Integumentary: Yes: WNL Neurological: Yes: Alert ...Motor Strength: WNL Psychiatric: Yes: Alert Laboratory Results - last 24 hr 05/03/17 05/03/17 05/03/17 13:05 13:05 13:05 WBC 6.4 RBC 4.50 Hgb 13.0 Hct 39.2 MCV 87.1 MCH 28.9 MCHC 33.2 RDW 13.5 Plt Count 149 MPV 9.8 Neutrophils % 54.0 Lymphocytes % 15.0 D Monocytes % 13.0 H Eosinophils % 16.0 H D Basophils % 2.0 Differential Comment Manual diff done Platelet Estimate Adequate Sodium 140 Potassium 4.8 Chloride 104 Carbon Dioxide 29 D Anion Gap 7 L BUN 28 H Creatinine 1.8 H Creat Clearance w eGFR 35.87 Random Glucose 99 Hemoglobin A1c % Calcium 8.8 Magnesium Total Bilirubin 0.7 D AST 17 ALT 16 Alkaline Phosphatase 83 D Creatine Kinase 199 D Creatine Kinase Index 1.5 CK-MB (CK-2) 2.917 CK-MB (CK-2) Rel Index Cancelled Troponin I 0.03 B-Natriuretic Peptide 7034.36 H Total Protein 8.0 Albumin 3.9 Triglycerides Cholesterol Total LDL Cholesterol HDL Cholesterol Urine Color Urine Appearance Urine pH Ur Specific [place] Urine Protein Urine Glucose (UA) Urine Ketones Urine Blood Urine Nitrite Urine Bilirubin Urine Urobilinogen Ur Leukocyte Esterase 05/03/17 05/03/17 05/03/17 18:20 19:15 19:15 WBC RBC Hgb Hct MCV MCH MCHC RDW Plt Count MPV Neutrophils % Lymphocytes % Monocytes % Eosinophils % Basophils % Differential Comment Platelet Estimate Sodium Potassium Chloride Carbon Dioxide Anion Gap BUN Creatinine Creat Clearance w eGFR Random Glucose Hemoglobin A1c % Calcium Magnesium Total Bilirubin AST ALT Alkaline Phosphatase Creatine Kinase 166 Creatine Kinase Index CK-MB (CK-2) 2.38 CK-MB (CK-2) Rel Index Cancelled Troponin I 0.03 B-Natriuretic Peptide Total Protein Albumin Triglycerides Cholesterol Total LDL Cholesterol HDL Cholesterol Urine Color Yellow Urine Appearance Clear Urine pH 5.0 Ur Specific [place] 1.025 Urine Protein Negative Urine Glucose (UA) Negative Urine Ketones Negative Urine Blood Negative Urine Nitrite Negative Urine Bilirubin Negative Urine Urobilinogen Negative Ur Leukocyte Esterase Negative 05/04/17 05/04/17 05/04/17 05:20 05:20 05:20 WBC 5.4 RBC 4.77 Hgb 13.9 Hct 41.8 MCV 87.7 MCH 29.1 MCHC 33.2 RDW 13.7 Plt Count 173 MPV 10.2 Neutrophils % 79.4 D Lymphocytes % 17.9 Monocytes % 2.3 L D Eosinophils % 0.1 D Basophils % 0.3 Differential Comment Platelet Estimate Sodium 136 Potassium 4.8 Chloride 103 Carbon Dioxide 23 D Anion Gap 10 BUN 37 H D Creatinine 2.1 H Creat Clearance w eGFR 30.02 Random Glucose 169 H D Hemoglobin A1c % Calcium 9.2 Magnesium 2.1 Total Bilirubin 0.6 AST 17 ALT 17 Alkaline Phosphatase 82 Creatine Kinase 160 Creatine Kinase Index 2.4 CK-MB (CK-2) 3.862 H CK-MB (CK-2) Rel Index Troponin I 0.09 H D B-Natriuretic Peptide Total Protein 8.4 H Albumin 3.9 Triglycerides 59 D Cancelled Cholesterol 188 Cancelled Total LDL Cholesterol 122 H D Cancelled HDL Cholesterol 55 D Cancelled Urine Color Urine Appearance Urine pH Ur Specific [place] Urine Protein Urine Glucose (UA) Urine Ketones Urine Blood Urine Nitrite Urine Bilirubin Urine Urobilinogen Ur Leukocyte Esterase 05/04/17 05/04/17 05:20 05:20 WBC RBC Hgb Hct MCV MCH MCHC RDW Plt Count MPV Neutrophils % Lymphocytes % Monocytes % Eosinophils % Basophils % Differential Comment Platelet Estimate Sodium Potassium Chloride Carbon Dioxide Anion Gap BUN Creatinine Creat Clearance w eGFR Random Glucose Hemoglobin A1c % 6.2 H D Calcium Magnesium Total Bilirubin AST ALT Alkaline Phosphatase Creatine Kinase Creatine Kinase Index CK-MB (CK-2) CK-MB (CK-2) Rel Index Cancelled Troponin I B-Natriuretic Peptide Total Protein Albumin Triglycerides Cholesterol Total LDL Cholesterol HDL Cholesterol Urine Color Urine Appearance Urine pH Ur Specific [place] Urine Protein Urine Glucose (UA) Urine Ketones Urine Blood Urine Nitrite Urine Bilirubin Urine Urobilinogen Ur Leukocyte Esterase Assessment/Plan Decompensated CHF Acute Bronchitis CKD CABG HTN HPL COPD due to previous smoking Low clinical suspicion of PE Prednisone Cardiology consult in progress Noted Zmax Beta [place] Lasix ALYCE I Renal evaluation Dr Julio
[2017-05-04] MEDS ORDERED: CARVEDILOL 3.125 MG TABLET (FP) PO SCH (13:45)
[2017-05-04] MEDS ORDERED: FUROSEMIDE 40 MG/4 ML INJECTABLE VIAL IVPUSH SCH (13:45)
--- NOTE | 2017-05-04 13:45 | PN ---
Physical Exam: SUBJECTIVE: Patient seen and examined. Feels that his breathing has greatly improved. OBJECTIVE: Vital Signs Period Temp Pulse Resp BP Sys/العلي Pulse Ox Last 24 Hr 97.4 F-98.7 F 84-128 20-22 126-154/62-92 90-98 GENERAL: The patient is awake, alert, and fully oriented, in no acute distress. EYES: PERRL, extraocular movements intact, sclera anicteric, conjunctiva clear. No ptosis. ENT: Ears normal, nares patent, oropharynx clear without exudates, moist mucous membranes. NECK: Trachea midline, full range of motion, supple. LUNGS: Breath sounds equal, scant expiratory wheeze bilaterally (much improved) , no crackles, no accessory muscle use. Cough still present, but improved. HEART: Regular rate and rhythm, S1, S2 without murmur, rub or gallop. ABDOMEN: Soft, nontender, nondistended, normoactive bowel sounds, no guarding, no rebound, no hepatosplenomegaly, no masses. EXTREMITIES: 2+ pulses, warm, well-perfused. 1+ pitting LLE edema, chronic s/p CABG per patient. NEUROLOGICAL: Cranial nerves II through XII grossly intact. Normal speech, gait not observed. PSYCH: Normal mood, normal affect. SKIN: Warm, dry, normal turgor, no rashes or lesions noted Laboratory Results - last 24 hr 05/03/17 05/03/17 05/03/17 18:20 19:15 19:15 WBC RBC Hgb Hct MCV MCH MCHC RDW Plt Count MPV Neutrophils % Lymphocytes % Monocytes % Eosinophils % Basophils % D-Dimer Sodium Potassium Chloride Carbon Dioxide Anion Gap BUN Creatinine Creat Clearance w eGFR Random Glucose Hemoglobin A1c % Calcium Magnesium Total Bilirubin AST ALT Alkaline Phosphatase Creatine Kinase 166 Creatine Kinase Index CK-MB (CK-2) 2.38 CK-MB (CK-2) Rel Index Cancelled Troponin I 0.03 Total Protein Albumin Triglycerides Cholesterol Total LDL Cholesterol HDL Cholesterol Urine Color Yellow Urine Appearance Clear Urine pH 5.0 Ur Specific [place] 1.025 Urine Protein Negative Urine Glucose (UA) Negative Urine Ketones Negative Urine Blood Negative Urine Nitrite Negative Urine Bilirubin Negative Urine Urobilinogen Negative Ur Leukocyte Esterase Negative 05/04/17 05/04/17 05/04/17 05:20 05:20 05:20 WBC 5.4 RBC 4.77 Hgb 13.9 Hct 41.8 MCV 87.7 MCH 29.1 MCHC 33.2 RDW 13.7 Plt Count 173 MPV 10.2 Neutrophils % 79.4 D Lymphocytes % 17.9 Monocytes % 2.3 L D Eosinophils % 0.1 D Basophils % 0.3 D-Dimer Sodium 136 Potassium 4.8 Chloride 103 Carbon Dioxide 23 D Anion Gap 10 BUN 37 H D Creatinine 2.1 H Creat Clearance w eGFR 30.02 Random Glucose 169 H D Hemoglobin A1c % Calcium 9.2 Magnesium 2.1 Total Bilirubin 0.6 AST 17 ALT 17 Alkaline Phosphatase 82 Creatine Kinase 160 Creatine Kinase Index 2.4 CK-MB (CK-2) 3.862 H CK-MB (CK-2) Rel Index Troponin I 0.09 H D Total Protein 8.4 H Albumin 3.9 Triglycerides 59 D Cancelled Cholesterol 188 Cancelled Total LDL Cholesterol 122 H D Cancelled HDL Cholesterol 55 D Cancelled Urine Color Urine Appearance Urine pH Ur Specific [place] Urine Protein Urine Glucose (UA) Urine Ketones Urine Blood Urine Nitrite Urine Bilirubin Urine Urobilinogen Ur Leukocyte Esterase 05/04/17 05/04/17 05/04/17 05:20 05:20 11:55 WBC RBC Hgb Hct MCV MCH MCHC RDW Plt Count MPV Neutrophils % Lymphocytes % Monocytes % Eosinophils % Basophils % D-Dimer 326 H Sodium Potassium Chloride Carbon Dioxide Anion Gap BUN Creatinine Creat Clearance w eGFR Random Glucose Hemoglobin A1c % 6.2 H D Calcium Magnesium Total Bilirubin AST ALT Alkaline Phosphatase Creatine Kinase Creatine Kinase Index CK-MB (CK-2) CK-MB (CK-2) Rel Index Cancelled Troponin I Total Protein Albumin Triglycerides Cholesterol Total LDL Cholesterol HDL Cholesterol Urine Color Urine Appearance Urine pH Ur Specific [place] Urine Protein Urine Glucose (UA) Urine Ketones Urine Blood Urine Nitrite Urine Bilirubin Urine Urobilinogen Ur Leukocyte Esterase Active Medications Generic Name Dose Route Start Last Admin Trade Name Freq PRN Reason Stop Dose Admin Acetaminophen 650 mg 05/03/17 15:22 Tylenol - PO Q6H PRN FEVER OR PAIN Albuterol Sulfate 1 amp 05/03/17 16:13 Ventolin 0.083% Nebulizer Soln - NEB Q6H PRN SHORT OF BREATH/WHEEZING Aspirin 81 mg 05/04/17 10:00 05/04/17 09:43 Ecotrin - PO 81 mg DAILY JEREMÍAS Administration Carvedilol 3.125 mg 05/04/17 13:45 Coreg - PO BID JEREMÍAS Docusate Sodium 100 mg 05/03/17 22:00 05/04/17 06:09 Colace - PO 100 mg TID JEREMÍAS Administration Furosemide 40 mg 05/04/17 13:45 Lasix Injection - IVPUSH DAILY JEREMÍAS Heparin Sodium (Porcine) 5,000 unit 05/03/17 22:00 05/04/17 06:09 Heparin - SQ 5,000 unit TID JEREMÍAS Administration Azithromycin 250 mls @ 250 mls/hr 05/04/17 10:15 05/04/17 10:30 Zithromax 500mg Ivpb (Pre-Docked) IVPB 05/07/17 10:59 250 mls/hr DAILY JEREMÍAS Administration Prednisone 40 mg 05/04/17 10:00 05/04/17 09:43 Deltasone - PO 40 mg DAILY JEREMÍAS Administration Spironolactone 12.5 mg 05/04/17 13:45 Aldactone - PO DAILY JEREMÍAS Chest CT 05/04 Mildly prominent mediastinal lymph nodes- followup suggested. Mild bibasilar bronchiectasis. Mild right upper lobe and right lower lobe interstitial thickening. Echocardiogram 05/04 Severe global hypokinesis of the LV, LV systolic function severely reduced ASSESSMENT/PLAN: 87 year old male admitted with shortness of breath. 1. Acute, decompensated heart failure -Lasix 40mg IVP daily- will need to monitor renal function closely -Start Coreg, Aldactone -Strict I/O, daily weights -Supplemental O2 as needed -Sodium-controlled diet -Cardiology following 2. Wheezing, ?acute bronchitis -Greatly improved today -Continue prednisone at 40mg po daily -Albuterol nebs prn -Continue azithromycin 250mg daily -D-dimer mildly elevated but low suspicion for PE given no CP, SOB, or O2 requirement at this time and other etiologies to explain symptoms 3. HTN -Holding Lisinopril until renal function recovers -BP at goal 4. F/E/N -Sodium-controlled diet -Follow electrolytes 5. Ppx -Sqh -Ambulation DISPO: Requires inpatient services. Addendum 14:40: Repeat troponin is 6.17. Discussed with Dr. Campuzano- repeat in 4 hrs. If remains elevated or is uptrending, start heparin gtt at that time. If HR remains elevated, change Coreg to Metoprolol. Patient is chest pain-free and is feeling well. Night team to follow up repeat value. Problem List - Problems (1) Dyspnea on exertion Code(s): R06.09 - OTHER FORMS OF DYSPNEA (2) Hypertension Code(s): I10 - ESSENTIAL (PRIMARY) HYPERTENSION (3) CAD (coronary artery disease) Code(s): I25.10 - ATHSCL HEART DISEASE OF [place] CORONARY ARTERY W/O ANG PCTRS (4) Renal insufficiency Code(s): N28.9 - DISORDER OF KIDNEY AND URETER, UNSPECIFIED (5) DVT prophylaxis Code(s): [id number] -
[2017-05-04 14:01] LABS: TROPONIN I 6.17 ng/ml (0.00-0.05)
[2017-05-04] MEDS: SPIRONOLACTONE 25 MG TABLET (FP) PO SCH (14:22)
[2017-05-04 15:40] LABS: URINE APPEARANCE CLEAR; URINE BILIRUBIN NEGATIVE (NEGATIVE); URINE BLOOD NEGATIVE (NEGATIVE); URINE COLOR STRAW; URINE GLUCOSE (UA) NEGATIVE (NEGATIVE); URINE KETONE NEGATIVE (NEGATIVE); URINE LEUK ESTERASE NEGATIVE (NEGATIVE); URINE NITRITE NEGATIVE (NEGATIVE); URINE PROTEIN NEGATIVE (NEGATIVE); URINE UROBILINOGEN NEGATIVE mg/dL (0.2-1.0)
[2017-05-04] MEDS ORDERED: HEPARIN NA (PORCINE) 5,000 UNITS/ML 1ML VIAL IVPUSH PRN (21:07)
[2017-05-04] MEDS ORDERED: HEPARIN NA (PORCINE) 5,000 UNITS/ML 1ML VIAL IVPUSH ONE (21:07)
[2017-05-04] MEDS: CARVEDILOL 6.25 MG TABLET (FP) PO SCH (21:28)
[2017-05-04] MEDS: HEPARIN INFUSION - 500 ML IVPB SCH (21:28)
[2017-05-05] MEDS: DOCUSATE SODIUM 100 MG CAPSULE (FP) PO SCH ×3 (05:42→21:22)
[2017-05-05 08:10] LABS: BASOPHIL 0.3 % (0-2.0); EOSINOPHIL 0.1 % (0-4.5); MCH 29.2 pg (25.7-33.7); MCHC 33.2 g/dl (32.0-35.9); MEAN PLT VOLUME 10.4 fl (7.5-11.1); NEUTROPHILS 72.7 % (42.8-82.8); PLATELET COUNT 188 K/MM3 (134-434); RDW 13.8 % (11.9-15.9); WHITE BLOOD COUNT 9.3 K/mm3 (4.0-10.0)
[2017-05-05 08:47] LABS: ALBUMIN 3.9 g/dl (3.4-5.0); ALK PHOS 79 U/L (45-117); ANION GAP 10 (8-16); BILIRUBIN,TOTAL 0.5 mg/dL (0.2-1.0); CO2 26 mmol/L (21-32); CREATININE 2.2 mg/dL (0.7-1.3); GLUCOSE,RANDOM 126 mg/dL (74-106); MAGNESIUM 2.3 mg/dL (1.8-2.4); SGOT/AST 44 U/L (15-37); SGPT/ALT 20 U/L (12-78); TOT PROT 8.1 g/dl (6.4-8.2); URIC ACID 8.8 mg/dL (2.6-7.2)
[2017-05-05 09:16] LABS: TROPONIN I 8.91 ng/ml (0.00-0.05)
[2017-05-05] MEDS: AZITHROMYCIN IVPB 250 ML IVPB SCH (09:31)
[2017-05-05] MEDS: SPIRONOLACTONE 25 MG TABLET (FP) PO SCH (09:31)
[2017-05-05] MEDS: FUROSEMIDE 40 MG/4 ML INJECTABLE VIAL IVPUSH SCH (09:31)
[2017-05-05] MEDS: predniSONE 20 MG TABLET (UD) PO SCH (09:31)
[2017-05-05] MEDS: CARVEDILOL 6.25 MG TABLET (FP) PO SCH (09:31)
[2017-05-05] MEDS: ASPIRIN COATED 81 MG TABLET.EC PO SCH (09:32)
--- NOTE | 2017-05-05 09:41 | PN ---
Physical Exam: SUBJECTIVE: Patient seen and examined. No chest pain or shortness of breath. Complaining of nausea which he attributes to his new medications. OBJECTIVE: Troponin peaked at 11.0. 8.9 this morning. Vital Signs Period Temp Pulse Resp BP Sys/العلي Pulse Ox Last 24 Hr 97.8 F-98.1 F 65-99 18-20 106-136/65-92 98-98 GENERAL: The patient is awake, alert, and fully oriented, in no acute distress. HEAD: Normal with no signs of trauma. EYES: PERRL, extraocular movements intact, sclera anicteric, conjunctiva clear. No ptosis. ENT: Ears normal, nares patent, oropharynx clear without exudates, moist mucous membranes. NECK: Trachea midline, full range of motion, supple. LUNGS: Breath sounds equal, clear to auscultation bilaterally, no wheezes, no crackles, no accessory muscle use. HEART: Regular rate and rhythm, S1, S2 without murmur, rub or gallop. ABDOMEN: Soft, nontender, nondistended, normoactive bowel sounds, no guarding, no rebound, no hepatosplenomegaly, no masses. EXTREMITIES: 2+ pulses, warm, well-perfused, chronic 1+ pitting LLE edema s/p CABG/vein harvesting. NEUROLOGICAL: Cranial nerves II through XII grossly intact. Normal speech, gait not observed. PSYCH: Normal mood, normal affect. SKIN: Warm, dry, normal turgor, no rashes or lesions noted Laboratory Results - last 24 hr 05/04/17 05/04/17 05/04/17 05:20 05:20 05:20 WBC RBC Hgb Hct MCV MCH MCHC RDW Plt Count MPV Neutrophils % Lymphocytes % Monocytes % Eosinophils % Basophils % PTT (Actin FS) D-Dimer Sodium 136 Potassium 4.8 Chloride 103 Carbon Dioxide 23 D Anion Gap 10 BUN 37 H D Creatinine 2.1 H Creat Clearance w eGFR 30.02 Random Glucose 169 H D Hemoglobin A1c % 6.2 H D Uric Acid Calcium 9.2 Magnesium 2.1 Total Bilirubin 0.6 AST 17 ALT 17 Alkaline Phosphatase 82 Creatine Kinase 160 Creatine Kinase Index 2.4 CK-MB (CK-2) 3.862 H CK-MB (CK-2) Rel Index Cancelled Troponin I 0.09 H D Total Protein 8.4 H Albumin 3.9 Triglycerides 59 D Cholesterol 188 Total LDL Cholesterol 122 H D HDL Cholesterol 55 D Urine Color Urine Appearance Urine pH Ur Specific [place] Urine Protein Urine Glucose (UA) Urine Ketones Urine Blood Urine Nitrite Urine Bilirubin Urine Urobilinogen Ur Leukocyte Esterase 05/04/17 05/04/17 05/04/17 11:55 11:55 15:20 WBC RBC Hgb Hct MCV MCH MCHC RDW Plt Count MPV Neutrophils % Lymphocytes % Monocytes % Eosinophils % Basophils % PTT (Actin FS) D-Dimer 326 H Sodium Potassium Chloride Carbon Dioxide Anion Gap BUN Creatinine Creat Clearance w eGFR Random Glucose Hemoglobin A1c % Uric Acid Calcium Magnesium Total Bilirubin AST ALT Alkaline Phosphatase Creatine Kinase 337 H D Creatine Kinase Index CK-MB (CK-2) CK-MB (CK-2) Rel Index Troponin I 6.17 H* D Total Protein Albumin Triglycerides Cholesterol Total LDL Cholesterol HDL Cholesterol Urine Color Straw Urine Appearance Clear Urine pH 5.0 Ur Specific [place] 1.010 Urine Protein Negative Urine Glucose (UA) Negative Urine Ketones Negative Urine Blood Negative Urine Nitrite Negative Urine Bilirubin Negative Urine Urobilinogen Negative Ur Leukocyte Esterase Negative 05/04/17 05/04/17 05/05/17 18:40 18:40 02:50 WBC RBC Hgb Hct MCV MCH MCHC RDW Plt Count MPV Neutrophils % Lymphocytes % Monocytes % Eosinophils % Basophils % PTT (Actin FS) > 200.0 H D-Dimer Sodium Potassium Chloride Carbon Dioxide Anion Gap BUN Creatinine Creat Clearance w eGFR Random Glucose Hemoglobin A1c % Uric Acid Calcium Magnesium Total Bilirubin AST ALT Alkaline Phosphatase Creatine Kinase 376 H Creatine Kinase Index 9.3 H* CK-MB (CK-2) 34.854 H CK-MB (CK-2) Rel Index Cancelled Troponin I 11.00 H* D Total Protein Albumin Triglycerides Cholesterol Total LDL Cholesterol HDL Cholesterol Urine Color Urine Appearance Urine pH Ur Specific [place] Urine Protein Urine Glucose (UA) Urine Ketones Urine Blood Urine Nitrite Urine Bilirubin Urine Urobilinogen Ur Leukocyte Esterase 05/05/17 05/05/17 05/05/17 05:50 05:50 05:50 WBC 9.3 D RBC 4.74 Hgb 13.8 Hct 41.7 MCV 88.0 MCH 29.2 MCHC 33.2 RDW 13.8 Plt Count 188 MPV 10.4 Neutrophils % 72.7 Lymphocytes % 17.8 Monocytes % 9.1 D Eosinophils % 0.1 Basophils % 0.3 PTT (Actin FS) D-Dimer Sodium 136 Potassium 4.6 Chloride 100 Carbon Dioxide 26 Anion Gap 10 BUN 50 H D Creatinine 2.2 H Creat Clearance w eGFR 28.45 Random Glucose 126 H D Hemoglobin A1c % Uric Acid 8.8 H Calcium 9.0 Magnesium 2.3 Total Bilirubin 0.5 AST 44 H D ALT 20 Alkaline Phosphatase 79 Creatine Kinase 281 D Creatine Kinase Index CK-MB (CK-2) CK-MB (CK-2) Rel Index Troponin I 8.91 H* Total Protein 8.1 Albumin 3.9 Triglycerides Cholesterol Total LDL Cholesterol HDL Cholesterol Urine Color Urine Appearance Urine pH Ur Specific [place] Urine Protein Urine Glucose (UA) Urine Ketones Urine Blood Urine Nitrite Urine Bilirubin Urine Urobilinogen Ur Leukocyte Esterase Active Medications Generic Name Dose Route Start Last Admin Trade Name Freq PRN Reason Stop Dose Admin Acetaminophen 650 mg 05/03/17 15:22 Tylenol - PO Q6H PRN FEVER OR PAIN Albuterol Sulfate 1 amp 05/03/17 16:13 Ventolin 0.083% Nebulizer Soln - NEB Q6H PRN SHORT OF BREATH/WHEEZING Aspirin 81 mg 05/04/17 10:00 05/05/17 09:32 Ecotrin - PO 81 mg DAILY JEREMÍAS Administration Carvedilol 6.25 mg 05/04/17 22:00 05/05/17 09:31 Coreg - PO 6.25 mg BID JEREMÍAS Administration Docusate Sodium 100 mg 05/03/17 22:00 05/05/17 05:42 Colace - PO 100 mg TID JEREMÍAS Administration Furosemide 40 mg 05/05/17 10:00 05/05/17 09:31 Lasix Injection - IVPUSH 40 mg DAILY@1000 JEREMÍAS Administration Heparin Sodium (Porcine) 5,000 unit 05/04/17 21:07 Heparin - IVPUSH PRN PRN Heparin Sodium (Porcine) 1,000 unit 05/04/17 21:07 Heparin - IVPUSH PRN PRN Azithromycin 250 mls @ 250 mls/hr 05/04/17 10:15 05/05/17 09:31 Zithromax 500mg Ivpb (Pre-Docked) IVPB 05/07/17 10:59 250 mls/hr DAILY JEREMÍAS Administration Heparin Sodium/Dextrose 500 mls @ 20 mls/hr 05/04/17 21:15 05/05/17 05:10 Heparin Infusion - IVPB 700 units/hr TITR JEREMÍAS Titration Protocol 1,000 UNITS/HR Prednisone 40 mg 05/04/17 10:00 05/05/17 09:31 Deltasone - PO 40 mg DAILY JEREMÍAS Administration Spironolactone 12.5 mg 05/04/17 13:45 05/05/17 09:31 Aldactone - PO 12.5 mg DAILY JEREMÍAS Administration IMAGING: Chest CT 05/04 Mildly prominent mediastinal lymph nodes- followup suggested. Mild bibasilar bronchiectasis. Mild right upper lobe and right lower lobe interstitial thickening. Echocardiogram 05/04 Severe global hypokinesis of the LV, LV systolic function severely reduced ASSESSMENT/PLAN: 87 year old male admitted with shortness of breath. 1. NSTEMI -No chest pain at this time -Continue heparin gtt, BB, ASA -Start statin -Monitor on telemetry -Anticipate cardiac cath? -Cardiology following (early notes are in paper chart) 2. Acute, decompensated heart failure -Lasix 40mg IVP daily- will need to monitor renal function closely -Increase Coreg (started yesterday), continue Aldactone (started yesterday) -Strict I/O - not being charted, daily weights (-0.5kg) -Supplemental O2 as needed -Sodium-controlled diet 3. Wheezing, ?acute bronchitis -GWheezing has resolved -Taper prednisone -Albuterol nebs prn -Dc azithromycin 4. HTN -Holding Lisinopril until renal function recovers -Continue Coreg, Aldactone -BP at goal 5. F/E/N -Sodium-controlled diet -Follow electrolytes 6. Ppx -Therapeutic heparin -Ambulation DISPO: Requires inpatient services. Problem List - Problems (1) Dyspnea on exertion Code(s): R06.09 - OTHER FORMS OF DYSPNEA (2) Hypertension Code(s): I10 - ESSENTIAL (PRIMARY) HYPERTENSION (3) CAD (coronary artery disease) Code(s): I25.10 - ATHSCL HEART DISEASE OF [place] CORONARY ARTERY W/O ANG PCTRS (4) Renal insufficiency Code(s): N28.9 - DISORDER OF KIDNEY AND URETER, UNSPECIFIED (5) DVT prophylaxis Code(s): [id number] -
--- NOTE | 2017-05-05 12:45 | PN ---
Progress Note (short form) - Note Progress Note: Patient seen and examined in the Telemetry unit. Denies CP or SOB. Noted significant rise in troponin. Some dry cough. Intake & Output 05/02/17 05/03/17 05/04/17 05/05/17 23:59 23:59 23:59 23:59 Intake Total 10 650 250 Balance 10 650 250 Weight 170 lb 189 lb 2 oz 188 lb Last Vital Signs Temp Pulse Resp BP Pulse Ox 97.3 F L 83 20 106/68 98 05/05/17 09:00 05/05/17 09:00 05/05/17 09:00 05/05/17 09:00 05/05/17 05:00 Active Medications Acetaminophen (Tylenol -) 650 mg PO Q6H PRN PRN Reason: FEVER OR PAIN Albuterol Sulfate (Ventolin 0.083% Nebulizer Soln -) 1 amp NEB Q6H PRN PRN Reason: SHORT OF BREATH/WHEEZING Aspirin (Ecotrin -) 81 mg PO DAILY [facility] Last Admin: 05/05/17 09:32 Dose: 81 mg Atorvastatin Calcium (Lipitor -) 20 mg PO HS [facility] Carvedilol (Coreg -) 6.25 mg PO BID [facility] Last Admin: 05/05/17 09:31 Dose: 6.25 mg Docusate Sodium (Colace -) 100 mg PO TID [facility] Last Admin: 05/05/17 05:42 Dose: 100 mg Furosemide (Lasix Injection -) 40 mg IVPUSH DAILY@1000 JEREMÍAS Last Admin: 05/05/17 09:31 Dose: 40 mg Heparin Sodium (Porcine) (Heparin -) 5,000 unit IVPUSH PRN PRN Heparin Sodium (Porcine) (Heparin -) 1,000 unit IVPUSH PRN PRN Heparin Sodium/Dextrose (Heparin Infusion -) 500 mls @ 20 mls/hr IVPB TITR JEREMÍAS ; 1,000 UNITS/HR PRN Reason: Protocol Last Titration: 05/05/17 05:10 Dose: 700 units/hr Prednisone (Deltasone -) 20 mg PO DAILY [facility] Spironolactone (Aldactone -) 12.5 mg PO DAILY [facility] Last Admin: 05/05/17 09:31 Dose: 12.5 mg Constitutional: Yes: NAD Eyes: Yes: EOM Intact HENT: Yes: Normocephalic Neck: Yes: Trachea Midline Cardiovascular: Yes: Regular Rate and Rhythm Respiratory: Yes: Cough, Rales/Rhonchi Gastrointestinal: Yes: Normal Bowel Sounds Edema: No Integumentary: Yes: WNL Neurological: Yes: Alert ...Motor Strength: WNL Psychiatric: Yes: Alert Laboratory Results - last 24 hr 05/04/17 05/04/17 05/04/17 11:55 11:55 15:20 WBC RBC Hgb Hct MCV MCH MCHC RDW Plt Count MPV Neutrophils % Lymphocytes % Monocytes % Eosinophils % Basophils % PTT (Actin FS) D-Dimer 326 H Sodium Potassium Chloride Carbon Dioxide Anion Gap BUN Creatinine Creat Clearance w eGFR Random Glucose Uric Acid Calcium Magnesium Total Bilirubin AST ALT Alkaline Phosphatase Creatine Kinase 337 H D Creatine Kinase Index CK-MB (CK-2) CK-MB (CK-2) Rel Index Troponin I 6.17 H* D Total Protein Albumin Urine Color Straw Urine Appearance Clear Urine pH 5.0 Ur Specific [place] 1.010 Urine Protein Negative Urine Glucose (UA) Negative Urine Ketones Negative Urine Blood Negative Urine Nitrite Negative Urine Bilirubin Negative Urine Urobilinogen Negative Ur Leukocyte Esterase Negative 05/04/17 05/04/17 05/05/17 18:40 18:40 02:50 WBC RBC Hgb Hct MCV MCH MCHC RDW Plt Count MPV Neutrophils % Lymphocytes % Monocytes % Eosinophils % Basophils % PTT (Actin FS) > 200.0 H D-Dimer Sodium Potassium Chloride Carbon Dioxide Anion Gap BUN Creatinine Creat Clearance w eGFR Random Glucose Uric Acid Calcium Magnesium Total Bilirubin AST ALT Alkaline Phosphatase Creatine Kinase 376 H Creatine Kinase Index 9.3 H* CK-MB (CK-2) 34.854 H CK-MB (CK-2) Rel Index Cancelled Troponin I 11.00 H* D Total Protein Albumin Urine Color Urine Appearance Urine pH Ur Specific [place] Urine Protein Urine Glucose (UA) Urine Ketones Urine Blood Urine Nitrite Urine Bilirubin Urine Urobilinogen Ur Leukocyte Esterase 05/05/17 05/05/17 05/05/17 05:50 05:50 05:50 WBC 9.3 D RBC 4.74 Hgb 13.8 Hct 41.7 MCV 88.0 MCH 29.2 MCHC 33.2 RDW 13.8 Plt Count 188 MPV 10.4 Neutrophils % 72.7 Lymphocytes % 17.8 Monocytes % 9.1 D Eosinophils % 0.1 Basophils % 0.3 PTT (Actin FS) D-Dimer Sodium 136 Potassium 4.6 Chloride 100 Carbon Dioxide 26 Anion Gap 10 BUN 50 H D Creatinine 2.2 H Creat Clearance w eGFR 28.45 Random Glucose 126 H D Uric Acid 8.8 H Calcium 9.0 Magnesium 2.3 Total Bilirubin 0.5 AST 44 H D ALT 20 Alkaline Phosphatase 79 Creatine Kinase 281 D Creatine Kinase Index 7.5 H* CK-MB (CK-2) 21.024 H CK-MB (CK-2) Rel Index Troponin I 8.91 H* Total Protein 8.1 Albumin 3.9 Urine Color Urine Appearance Urine pH Ur Specific [place] Urine Protein Urine Glucose (UA) Urine Ketones Urine Blood Urine Nitrite Urine Bilirubin Urine Urobilinogen Ur Leukocyte Esterase 05/05/17 05/05/17 05:50 10:30 WBC RBC Hgb Hct MCV MCH MCHC RDW Plt Count MPV Neutrophils % Lymphocytes % Monocytes % Eosinophils % Basophils % PTT (Actin FS) 42.3 H D D-Dimer Sodium Potassium Chloride Carbon Dioxide Anion Gap BUN Creatinine Creat Clearance w eGFR Random Glucose Uric Acid Calcium Magnesium Total Bilirubin AST ALT Alkaline Phosphatase Creatine Kinase Creatine Kinase Index CK-MB (CK-2) CK-MB (CK-2) Rel Index Cancelled Troponin I Total Protein Albumin Urine Color Urine Appearance Urine pH Ur Specific [place] Urine Protein Urine Glucose (UA) Urine Ketones Urine Blood Urine Nitrite Urine Bilirubin Urine Urobilinogen Ur Leukocyte Esterase Assessment/Plan Decompensated CHF NSTEMI Acute Bronchitis CKD CABG HTN 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
[2017-05-05] MEDS: HEPARIN NA (PORCINE) 5,000 UNITS/ML 1ML VIAL IVPUSH PRN ×2 (13:01→19:40)
--- NOTE | 2017-05-05 13:09 | PN ---
Progress Note (short form) - Note Progress Note: 87 year old male known case of CAD,s/p CABG,hypertension,CKD,admitted with with CHF, and found to have rising CK and Troponins without reporting chest discomfort. ECG had revealed ST-T abnormalities. pT. denies dyspnea, PND or orthpnea, no CP or discomfort, rising BUN & creat. very resistant to taking medications. Active Medications Generic Name Dose Route Start Last Admin Trade Name Freq PRN Reason Stop Dose Admin Acetaminophen 650 mg 05/03/17 15:22 Tylenol - PO Q6H PRN FEVER OR PAIN Albuterol Sulfate 1 amp 05/03/17 16:13 Ventolin 0.083% Nebulizer Soln - NEB Q6H PRN SHORT OF BREATH/WHEEZING Aspirin 81 mg 05/04/17 10:00 05/05/17 09:32 Ecotrin - PO 81 mg DAILY JEREMÍAS Administration Atorvastatin Calcium 20 mg 05/05/17 22:00 Lipitor - PO HS JEREMÍAS Carvedilol 6.25 mg 05/04/17 22:00 05/05/17 09:31 Coreg - PO 6.25 mg BID JEREMÍAS Administration Docusate Sodium 100 mg 05/03/17 22:00 05/05/17 13:00 Colace - PO 100 mg TID JEREMÍAS Administration Furosemide 40 mg 05/05/17 10:00 05/05/17 09:31 Lasix Injection - IVPUSH 40 mg DAILY@1000 JEREMÍAS Administration Heparin Sodium (Porcine) 5,000 unit 05/04/17 21:07 Heparin - IVPUSH PRN PRN Heparin Sodium (Porcine) 1,000 unit 05/04/17 21:07 05/05/17 13:01 Heparin - IVPUSH 1,000 unit PRN PRN Administration Heparin Sodium/Dextrose 500 mls @ 20 mls/hr 05/04/17 21:15 05/05/17 13:00 Heparin Infusion - IVPB 800 units/hr TITR JEREMÍAS Titration Protocol 1,000 UNITS/HR Prednisone 20 mg 05/06/17 10:00 Deltasone - PO DAILY JEREMÍAS Spironolactone 12.5 mg 05/04/17 13:45 05/05/17 09:31 Aldactone - PO 12.5 mg DAILY JEREMÍAS Administration O: 87 yr. old male in no distress,no pallor, cyanosis or jaundice. Vital Signs - 8 hr 05/05/17 05/05/17 09:00 14:00 Temperature 97.3 F L 98.5 F Pulse Rate 83 84 Respiratory 20 20 Rate Blood Pressure 106/68 103/50 NECK: supple, no JVD,pulsatile neck veins, caritids 2+, no bruits. HEART: PMI 5TH ICS, S1 & S2 are normal.grade 1/6 systolic murmur LSB & apex. no gallops heard. LUNGS: Fine creps. both bases. ABDOMEN: soft and nontender. EXTREMITIES: No calf tenderness,1+ left ankle edema. Abnormal Lab Results 05/04/17 05/05/17 05/05/17 18:40 02:50 05:50 PTT (Actin FS) > 200.0 H BUN 50 H D Creatinine 2.2 H Random Glucose 126 H D Uric Acid 8.8 H AST 44 H D Creatine Kinase 376 H Creatine Kinase Index 9.3 H* CK-MB (CK-2) 34.854 H Troponin I 11.00 H* D 05/05/17 05/05/17 05:50 10:30 PTT (Actin FS) 42.3 H D BUN Creatinine Random Glucose Uric Acid AST Creatine Kinase Creatine Kinase Index 7.5 H* CK-MB (CK-2) 21.024 H Troponin I 8.91 H* EC05/05/17. Sinus rhythm,IACD,occasional VPBs and SPBs, LAHB,IVCD ST-T abnormalities involving the lateral leads compared to 05/04/17 decrease in heart rate,ST-T abnormalities aremore pronounced in V4-V^ and T wave inversions are noted in V4. Laboratory Results - last 24 hr 05/04/17 05/04/17 05/04/17 15:20 18:40 18:40 WBC RBC Hgb Hct MCV MCH MCHC RDW Plt Count MPV Neutrophils % Lymphocytes % Monocytes % Eosinophils % Basophils % PTT (Actin FS) Sodium Potassium Chloride Carbon Dioxide Anion Gap BUN Creatinine Creat Clearance w eGFR Random Glucose Uric Acid Calcium Magnesium Total Bilirubin AST ALT Alkaline Phosphatase Creatine Kinase 376 H Creatine Kinase Index 9.3 H* CK-MB (CK-2) 34.854 H CK-MB (CK-2) Rel Index Cancelled Troponin I 11.00 H* D Total Protein Albumin Urine Color Straw Urine Appearance Clear Urine pH 5.0 Ur Specific [place] 1.010 Urine Protein Negative Urine Glucose (UA) Negative Urine Ketones Negative Urine Blood Negative Urine Nitrite Negative Urine Bilirubin Negative Urine Urobilinogen Negative Ur Leukocyte Esterase Negative 05/05/17 05/05/17 05/05/17 02:50 05:50 05:50 WBC 9.3 D RBC 4.74 Hgb 13.8 Hct 41.7 MCV 88.0 MCH 29.2 MCHC 33.2 RDW 13.8 Plt Count 188 MPV 10.4 Neutrophils % 72.7 Lymphocytes % 17.8 Monocytes % 9.1 D Eosinophils % 0.1 Basophils % 0.3 PTT (Actin FS) > 200.0 H Sodium 136 Potassium 4.6 Chloride 100 Carbon Dioxide 26 Anion Gap 10 BUN 50 H D Creatinine 2.2 H Creat Clearance w eGFR 28.45 Random Glucose 126 H D Uric Acid 8.8 H Calcium 9.0 Magnesium 2.3 Total Bilirubin 0.5 AST 44 H D ALT 20 Alkaline Phosphatase 79 Creatine Kinase Creatine Kinase Index CK-MB (CK-2) CK-MB (CK-2) Rel Index Troponin I Total Protein 8.1 Albumin 3.9 Urine Color Urine Appearance Urine pH Ur Specific [place] Urine Protein Urine Glucose (UA) Urine Ketones Urine Blood Urine Nitrite Urine Bilirubin Urine Urobilinogen Ur Leukocyte Esterase 05/05/17 05/05/17 05/05/17 05:50 05:50 10:30 WBC RBC Hgb Hct MCV MCH MCHC RDW Plt Count MPV Neutrophils % Lymphocytes % Monocytes % Eosinophils % Basophils % PTT (Actin FS) 42.3 H D Sodium Potassium Chloride Carbon Dioxide Anion Gap BUN Creatinine Creat Clearance w eGFR Random Glucose Uric Acid Calcium Magnesium Total Bilirubin AST ALT Alkaline Phosphatase Creatine Kinase 281 D Creatine Kinase Index 7.5 H* CK-MB (CK-2) 21.024 H CK-MB (CK-2) Rel Index Cancelled Troponin I 8.91 H* Total Protein Albumin Urine Color Urine Appearance Urine pH Ur Specific [place] Urine Protein Urine Glucose (UA) Urine Ketones Urine Blood Urine Nitrite Urine Bilirubin Urine Urobilinogen Ur Leukocyte Esterase Impression: 1. Acute LV failure. 2. NSTEMI. 3. Severe LV systolic dysfunction. 4. Acute on chronic kidney disease. 5. CAD s/p CABG. 6. Tricuspid regurgition. 7. Mitral regurgition/ 8. COPD. 9. Poor compliance. 10. Recurring sinus tachycardia. 11. VPBs. 12. SPBs. Recommendations: 1. Switch to Lopressor 25 mg.BID & D/C Coreg. 2. Continue current therapy. 3. Close F/U of PTT, CBC and renal function. 4. F/U Xray chest. Prognosis: Very guarded
[2017-05-05] MEDS: ATORVASTATIN CA 20 MG TABLET (FP) PO SCH (21:22)
[2017-05-05] MEDS: METOPROLOL TARTRATE 25 MG TABLET (FP) PO SCH (21:22)
[2017-05-05 21:39] LABS: TROPONIN I 3.89 ng/ml (0.00-0.05)
[2017-05-06] MEDS: HEPARIN INFUSION - 500 ML IVPB SCH ×2 (01:25→21:15)
[2017-05-06] MEDS: HEPARIN NA (PORCINE) 5,000 UNITS/ML 1ML VIAL IVPUSH PRN (03:37)
[2017-05-06] MEDS: DOCUSATE SODIUM 100 MG CAPSULE (FP) PO SCH ×3 (05:59→21:04)
[2017-05-06 07:08] LABS: BASOPHIL 0.3 % (0-2.0); EOSINOPHIL 0.1 % (0-4.5); MCH 29.2 pg (25.7-33.7); MCHC 33.5 g/dl (32.0-35.9); MEAN CELL VOLUME 87.1 fl (80-96); MEAN PLT VOLUME 9.8 fl (7.5-11.1); PLATELET COUNT 160 K/MM3 (134-434); RDW 13.4 % (11.9-15.9); WHITE BLOOD COUNT 8.1 K/mm3 (4.0-10.0)
[2017-05-06 08:53] LABS: ALBUMIN 3.5 g/dl (3.4-5.0); ANION GAP 10 (8-16); BILIRUBIN,TOTAL 0.4 mg/dL (0.2-1.0); CALCIUM 8.6 mg/dL (8.5-10.1); CO2 22 mmol/L (21-32); CREATININE 1.9 mg/dL (0.7-1.3); GLUCOSE,RANDOM 125 mg/dL (74-106); SGOT/AST 27 U/L (15-37); SGPT/ALT 19 U/L (12-78); TOT PROT 7.2 g/dl (6.4-8.2)
[2017-05-06 09:07] LABS: ALK PHOS 66 U/L (45-117)
[2017-05-06 09:09] LABS: TROPONIN I 3.12 ng/ml (0.00-0.05)
--- NOTE | 2017-05-06 09:17 | EKG ---
Test Reason : Blood Pressure : / mmHG Vent. Rate : 092 BPM Atrial Rate : 092 BPM P-R Int : 170 ms QRS Dur : 138 ms QT Int : 392 ms P-R-T Axes : 058 -59 146 degrees QTc Int : 484 ms SINUS RHYTHM WITH PREMATURE SUPRAVENTRICULAR COMPLEXES AND WITH OCCASIONAL PREMATURE VENTRICULAR COMPLEXES POSSIBLE LEFT ATRIAL ENLARGEMENT LEFT AXIS DEVIATION LEFT BUNDLE BRANCH BLOCK ABNORMAL ECG WHEN COMPARED WITH ECG OF 04-MAY-2017 09:59, PREMATURE VENTRICULAR COMPLEXES ARE NOW PRESENT Confirmed by CHARLEE QUIROZ MD ([id number]) on 05/06/2017 9:17:08 AM Referred By: Tolu LOPEZ Confirmed By:CHARLEE QUIROZ MD
--- NOTE | 2017-05-06 09:24 | EKG ---
Test Reason : Blood Pressure : / mmHG Vent. Rate : 107 BPM Atrial Rate : 107 BPM P-R Int : 168 ms QRS Dur : 132 ms QT Int : 368 ms P-R-T Axes : 051 -57 126 degrees QTc Int : 491 ms SINUS TACHYCARDIA WITH PREMATURE ATRIAL COMPLEXES WITH ABERRANT CONDUCTION POSSIBLE LEFT ATRIAL ENLARGEMENT LEFT AXIS DEVIATION LEFT BUNDLE BRANCH BLOCK ABNORMAL ECG WHEN COMPARED WITH ECG OF 03-MAY-2017 13:08, LEFT BUNDLE BRANCH BLOCK IS NOW PRESENT Confirmed by GABRIELLA SALAS, CHARLEE ([id number]) on 05/06/2017 9:24:27 AM Referred By: Tolu LOPEZ Confirmed By:CHARLEE QUIROZ MD
[2017-05-06] MEDS: FUROSEMIDE 40 MG/4 ML INJECTABLE VIAL IVPUSH SCH (09:36)
[2017-05-06] MEDS: predniSONE 20 MG TABLET (UD) PO SCH (09:36)
[2017-05-06] MEDS: ASPIRIN COATED 81 MG TABLET.EC PO SCH (09:36)
[2017-05-06] MEDS: SPIRONOLACTONE 25 MG TABLET (FP) PO SCH (09:37)
[2017-05-06] MEDS: METOPROLOL TARTRATE 25 MG TABLET (FP) PO SCH ×2 (09:37→21:02)
--- NOTE | 2017-05-06 10:37 | CONS ---
DATE OF CONSULTATION: 05/04/2017 REQUESTING PHYSICIAN: Dr. Joe Patricia CARDIOLOGY CONSULTATION CHIEF COMPLAINT: Shortness of breath. HISTORY: The patient is an 87-year-old gentleman with a history of hypertension, hypertensive cerebrovascular disease, coronary artery disease, status post coronary artery bypass grafting, angina pectoris, hypercholesterolemia, deafness, chronic tinnitus, and vertigo who was admitted with progressive and severe dyspnea on minimal exertion accompanied by paroxysmal and nocturnal dyspnea and orthopnea. The patient also had a cough that was mostly nonproductive. The patient recently developed increasing vertigo and gait disturbance and went to [facility] and was told that he had otitis and was placed on amoxicillin, which caused him abdominal discomfort, nausea, and vomiting followed by increased dyspnea on minimal exertion, orthopnea, and paroxysmal and nocturnal dyspnea. He was seen by Dr. Knowles and was advised hospitalization. Prior to the above-mentioned symptoms, he did experience mild dyspnea on exertion especially walking on an incline and had intermittent retrosternal, mild chest tightness. The patient states that he has had a nonproductive cough for the past 2 years, which recently became more pronounced and frequent. Admits to poor medical and dietary compliance. PAST HISTORY: 1. As mentioned in the history of present illness. 2. History of BPH. SOCIAL HISTORY: A . He is retired. Has 1 daughter from his . Has 2 other daughters. He has never smoked. Has an occasional beer or glass of wine. Denies having excessive use of caffeine. FAMILY HISTORY: Father suddenly at the age of 70. Mother also in her 70s apparently related to an acute appendicitis. He had 7 brothers and 1 sister. Three of the brothers are . The other brothers and sister are alive, and he is not sure if they have any medical issues. ALLERGIES: The patient states that he has been told that he is allergic to AMOXICILLIN. MEDICATIONS: 1. Prednisone 40 mg p.o. daily. 2. Zithromax 500 mg IV daily. 3. Heparin 5000 units subcutaneous t.i.d. 4. Albuterol via nebulizer 0.083% q.6 hours p.r.n. 5. Colace 100 mg p.o. t.i.d. 6. Aspirin 81 mg p.o. daily. REVIEW OF SYSTEMS: Constitutional: No history of chills, fever, or night sweats. No history of unintentional weight loss. HEENT: No history of headaches, diplopia, or blurred vision reported. No history of epistaxis or hoarseness. History of chronic tinnitus/vertigo and bilateral deafness requiring hearing aids. History of recent otitis. Cardiovascular: See history of present illness. Respiratory: History of chronic, nonproductive cough with recent exacerbation. No history of hemoptysis. Denies having tuberculosis. Gastrointestinal: See history of present illness. No history of melena or hematemesis. No history of recent change in bowel habits. Since discontinuing amoxicillin, nausea, vomiting, and abdominal discomfort has abated. Endocrine: No history of polyuria or polydipsia. Denies intolerance to cold or warm weather. Central Nervous System: History of chronic vertigo/dizziness with recent exacerbation. No history of seizures or syncope. No history of focal weakness. Musculoskeletal: No history of myalgias or arthralgias reported. Hematologic/Lymphatic: No history of anemia, ecchymosis, or bleeding. No history of lymphadenopathy. PHYSICAL EXAMINATION: General: An 87-year-old alert gentleman who was in no acute distress. He does have a cough. Skin: No pallor, cyanosis, clubbing, or jaundice. Vital Signs: Blood pressure 126/76 mmHg, pulse 111 beats per minute, respirations 20 per minute, weight 189.2 pounds. Neck: Supple. Jugular venous distention 1 cm at 30 degrees with positive hepatojugular reflux and neck veins are pulsatile. Carotids are 2+. Upstrokes are normal. No bruits are heard, and no thyromegaly is present. Heart: PMI is in the 5th intercostal space. No heaves or thrills. Heart sounds are distant. There is a grade 2/6 holosystolic murmur heard along the left lower sternal border. Murmur is also heard at the apex with radiation to the left axilla. There is no clear cut increase in intensity with inspiration. S3 gallop is heard at the apex. Lungs: Fine crepitations heard at both bases more pronounced at the right. Chest: Normal AP diameter. Expansion is symmetrical. There is a well-healed midline sternotomy scar. Abdomen: Soft, nontender. Liver edge is palpable and is pulsatile. No splenomegaly. Bowel sounds are active. No bruits are heard. Extremities: No calf tenderness. There is trace ankle edema especially involving the left lower extremity. There are bilateral surgical scars. Femoral pulses, right is 1 to 2+, left is 1+. Right posterior tibial pulse is palpable. Left cannot be palpated. Right dorsalis pedis pulse is weak. Left is not palpable. Posterior tibial pulses cannot be palpated. ECG May 03, 2017: Sinus rhythm with intraatrial conduction abnormality, occasional supraventricular premature beats, left anterior hemiblock, nonspecific interventricular conduction delay with associated ST and T abnormalities. ECG dated May 04: Sinus tachycardia with intraatrial conduction abnormality and frequent ventricular premature beats single and unifocal. There were ST and T abnormalities noted in the lateral pericardial leads and were more pronounced in leads 1 and aVL. LABORATORY DATA: May 04, 2017: Sodium 136, potassium 4.8, chloride 103, CO2 is 23 mEq/L, BUN 37, creatinine 2.1 mg/dL. On May 03, BUN was 28 and creatinine 1.8. Troponin on May 03 was 734.36. CK 199 and 166 respectively. Troponin was 0.03 and 0.09 respectively. Echocardiogram interpretation summary: There is severe global hypokinesia of the left ventricle. Left ventricular systolic function is severely reduced. Left ventricle is mildly dilated. Left atrium is mildly dilated. There is mild mitral annual calcification. There is mild mitral regurgitation. There is mild tricuspid regurgitation. Right ventricular systolic pressure is elevated at 30-40 mmHg. There is mild aortic valve sclerosis. No hemodynamically significant aortic valvular stenosis. There is no pericardial effusion. IMPRESSION: 1. Clinical presentation is consistent with acute left ventricular failure. 2. Clinical findings consistent with tricuspid regurgitation is probably moderate to severe. 3. Mitral regurgitation. 4. Coronary artery disease status post coronary artery bypass grafting, angina pectoris. 5. Severe left ventricular systolic dysfunction. 6. Ventricular premature beats. 7. Hypertension, hypertensive cerebrovascular disease currently normotensive. 8. Chronic kidney disease. 9. Chronic, nonproductive cough etiology: A. Secondary to lisinopril. B. Congestive heart failure. C. Related to underlying chronic obstructive pulmonary disease. 10. Chronic tinnitus and vertigo, history of recent otitis. 11. Poor compliance. 12. Persistent sinus tachycardia most likely related to congestive heart failure and left ventricular function. RECOMMENDATIONS: 1. Add Coreg 3.125 mg p.o. b.i.d. 2. Continue diuretics. Will require 40 mg IV now and then 20 mg p.o. daily. Dose is to be adjusted according to daily weight and renal function. 3. Consider switching to an ARB and discontinue ALYCE inhibitors. 4. Close monitoring of renal function. 5. If renal function remains stable, consider low dose Aldactone starting at 12.5 mg p.o. daily and titrate the dose as necessary. 6. Consider adding oral nitrites provided blood pressure remains stable while he is on beta-blockers and ARB. 7. Risk modifications including curtailing sodium intake. 8. Daily weight. 9. T3, T4, TSH. 10. Resume statins. PROGNOSIS: Guarded. Thank you for your referral. RADHA ASIF M.D. [id number]
--- NOTE | 2017-05-06 10:46 | EKG ---
Test Reason : Blood Pressure : / mmHG Vent. Rate : 091 BPM Atrial Rate : 091 BPM P-R Int : 162 ms QRS Dur : 128 ms QT Int : 384 ms P-R-T Axes : 047 -54 108 degrees QTc Int : 472 ms SINUS RHYTHM WITH PREMATURE ATRIAL COMPLEXES POSSIBLE LEFT ATRIAL ENLARGEMENT LEFT AXIS DEVIATION LEFT VENTRICULAR HYPERTROPHY WITH QRS WIDENING AND REPOLARIZATION ABNORMALITY ABNORMAL ECG WHEN COMPARED WITH ECG OF 22-FEB-2017 10:44, PREMATURE ATRIAL COMPLEXES ARE NOW PRESENT LEFT BUNDLE BRANCH BLOCK IS NO LONGER PRESENT Confirmed by CHARLEE QUIROZ MD ([id number]) on 05/06/2017 10:45:47 AM Referred By: Confirmed By:CHARLEE QUIROZ MD
--- NOTE | 2017-05-06 12:14 | PN ---
Progress Note (short form) - Note Progress Note: Renal Follow up for EDITA/CKD Pt seen and examined in the [facility] continues to have SOB but is improved no chest pain at the present time no abd pain, N/V/D on Heparin gtt making good urine with IV lasix Vital Signs Temperature 98.1 F 05/06/17 07:36 Pulse Rate 87 05/06/17 07:36 Respiratory Rate 18 05/06/17 07:51 Blood Pressure 123/77 05/06/17 07:36 O2 Sat by Pulse Oximetry (%) 98 05/06/17 07:51 Intake & Output 05/03/17 05/04/17 05/05/17 05/06/17 23:59 23:59 23:59 23:59 Intake Total 10 650 1328 266 Balance 10 650 1328 266 Weight 170 lb 189 lb 2 oz 188 lb 190 lb 1.6 oz Gen: NAD CVS: RRR, No M/R Lungs: + rales at b/l lung bases Abd: soft NT/ND Ext: 1-2+ edema in LE CBC, BMP 05/06/17 05:35 05/06/17 05:35 Current Medications Acetaminophen (Tylenol -) 650 mg PO Q6H PRN PRN Reason: FEVER OR PAIN Albuterol Sulfate (Ventolin 0.083% Nebulizer Soln -) 1 amp NEB Q6H PRN PRN Reason: SHORT OF BREATH/WHEEZING Aspirin (Ecotrin -) 81 mg PO DAILY JEREMÍAS Last Admin: 05/06/17 09:36 Dose: 81 mg Atorvastatin Calcium (Lipitor -) 20 mg PO HS JEREMÍAS Last Admin: 05/05/17 21:22 Dose: 20 mg Docusate Sodium (Colace -) 100 mg PO TID JEREMÍAS Last Admin: 05/06/17 05:59 Dose: Not Given Furosemide (Lasix Injection -) 40 mg IVPUSH DAILY@1000 JEREMÍAS Last Admin: 05/06/17 09:36 Dose: 40 mg Heparin Sodium (Porcine) (Heparin -) 5,000 unit IVPUSH PRN PRN Heparin Sodium (Porcine) (Heparin -) 1,000 unit IVPUSH PRN PRN Last Admin: 05/06/17 03:37 Dose: 1,000 unit Heparin Sodium/Dextrose (Heparin Infusion -) 500 mls @ 20 mls/hr IVPB TITR JEREMÍAS ; 1,000 UNITS/HR PRN Reason: Protocol Last Titration: 05/06/17 03:32 Dose: 1,000 units/hr Metoprolol Tartrate (Lopressor -) 25 mg PO BID [facility] Last Admin: 05/06/17 09:37 Dose: 25 mg Prednisone (Deltasone -) 20 mg PO DAILY [facility] Last Admin: 05/06/17 09:36 Dose: 20 mg Spironolactone (Aldactone -) 12.5 mg PO DAILY [facility] Last Admin: 05/06/17 09:37 Dose: 12.5 mg A/P 87 year old male with a history of HTN and CAD s/p CABG x 5 yrs ago admitted with dry cough, dyspnea on minimal exertion #EDITA vs. CKD in setting of NSTEMI/CHF Cr was 1.6 in 02/2017 and Renal US shows signs of cortical thinning which are consistent with CKD UA w/o signs of proteinuriea or sediment and thus CKD likely related to ischemic +/- hypertensive renal disease Check SPEP Renal function improving with IV diuretics pt continues to have signs of volume overlaod and would continue IV Lasix, consider BID dosing #NSTEMI/CHF IV diuretics/ A/c with IV heparin Cardiology following Lobo Shrestha DO
--- NOTE | 2017-05-06 12:19 | PN ---
Progress Note, Physician History of Present Illness: pulmonary alert,oob-chair,nad,-cp,-sob - Current Medication List Current Medications: Active Medications Acetaminophen (Tylenol -) 650 mg PO Q6H PRN PRN Reason: FEVER OR PAIN Albuterol Sulfate (Ventolin 0.083% Nebulizer Soln -) 1 amp NEB Q6H PRN PRN Reason: SHORT OF BREATH/WHEEZING Aspirin (Ecotrin -) 81 mg PO DAILY [facility] Last Admin: 05/06/17 09:36 Dose: 81 mg Atorvastatin Calcium (Lipitor -) 20 mg PO HS [facility] Last Admin: 05/05/17 21:22 Dose: 20 mg Docusate Sodium (Colace -) 100 mg PO TID [facility] Last Admin: 05/06/17 05:59 Dose: Not Given Furosemide (Lasix Injection -) 40 mg IVPUSH DAILY@1000 JEREMÍAS Last Admin: 05/06/17 09:36 Dose: 40 mg Heparin Sodium (Porcine) (Heparin -) 5,000 unit IVPUSH PRN PRN Heparin Sodium (Porcine) (Heparin -) 1,000 unit IVPUSH PRN PRN Last Admin: 05/06/17 03:37 Dose: 1,000 unit Heparin Sodium/Dextrose (Heparin Infusion -) 500 mls @ 20 mls/hr IVPB TITR JEREMÍAS ; 1,000 UNITS/HR PRN Reason: Protocol Last Titration: 05/06/17 03:32 Dose: 1,000 units/hr Metoprolol Tartrate (Lopressor -) 25 mg PO BID [facility] Last Admin: 05/06/17 09:37 Dose: 25 mg Prednisone (Deltasone -) 20 mg PO DAILY [facility] Last Admin: 05/06/17 09:36 Dose: 20 mg Spironolactone (Aldactone -) 12.5 mg PO DAILY [facility] Last Admin: 05/06/17 09:37 Dose: 12.5 mg - Objective Vital Signs: Vital Signs Temperature 98.1 F 05/06/17 07:36 Pulse Rate 87 05/06/17 07:36 Respiratory Rate 18 05/06/17 07:51 Blood Pressure 123/77 05/06/17 07:36 O2 Sat by Pulse Oximetry (%) 98 05/06/17 07:51 Constitutional: Yes: Well Nourished, Calm Eyes: Yes: WNL HENT: Yes: WNL Neck: Yes: Supple Cardiovascular: Yes: Regular Rate and Rhythm, S1, S2 Respiratory: Yes: Rales (bobasilar crackles) Gastrointestinal: Yes: Normal Bowel Sounds, Soft Extremities: Yes: WNL Edema: Yes Labs: CBC, BMP 05/06/17 05:35 05/06/17 05:35 - ....Imaging Chest X-ray: Report Reviewed, Image Reviewed Problem List - Problems (1) CAD (coronary artery disease) Code(s): I25.10 - ATHSCL HEART DISEASE OF [place] CORONARY ARTERY W/O ANG PCTRS (2) Chest pain Code(s): R07.9 - CHEST PAIN, UNSPECIFIED Qualifiers: Chest pain type: unspecified Qualified Code(s): R07.9 - Chest pain, unspecified (3) Chronic kidney disease (CKD) stage G3a/A2, moderately decreased glomerular filtration rate (GFR) between 45-59 mL/min/1.73 square meter and albuminuria creatinine ratio between 30-299 mg/g Code(s): N18.3 - CHRONIC KIDNEY DISEASE, STAGE 3 (MODERATE) (4) Dyspnea on exertion Code(s): R06.09 - OTHER FORMS OF DYSPNEA (5) Hypertension Code(s): I10 - ESSENTIAL (PRIMARY) HYPERTENSION (6) CHF (congestive heart failure) Code(s): I50.9 - HEART FAILURE, UNSPECIFIED (7) Non-ST elevated myocardial infarction Code(s): I21.4 - NON-ST ELEVATION (NSTEMI) MYOCARDIAL INFARCTION Assessment/Plan Assessment/Plan Decompensated CHF NSTEMI Acute Bronchitis CKD CABG HTN HPL COPD due to previous smoking ASA Lasix Spirolactone Prednisone Zmax Beta [place] Follow renal function Cardiac w/u DR ANGELA
--- NOTE | 2017-05-06 13:04 | PN ---
Physical Exam: SUBJECTIVE: Patient seen and examined oob to chair in solarium. OBJECTIVE: Vital Signs Period Temp Pulse Resp BP Sys/العلي Pulse Ox Last 24 Hr 97.4 F-98.5 F 81-93 18-20 103-130/50-86 98-98 GENERAL: The patient is awake, alert, and fully oriented, in no acute distress. HEAD: Normal with no signs of trauma. EYES: PERRL, extraocular movements intact, sclera anicteric, conjunctiva clear. No ptosis. ENT: Ears normal, nares patent, oropharynx clear without exudates, moist mucous membranes. NECK: Trachea midline, full range of motion, supple. LUNGS: Mild bibasilar crackles HEART: Regular rate and rhythm, S1, S2 without murmur, rub or gallop. ABDOMEN: Soft, nontender, nondistended, normoactive bowel sounds, no guarding, no rebound, no hepatosplenomegaly, no masses. EXTREMITIES: 2+ pulses, warm, well-perfused, 1+ edema bilaterally NEUROLOGICAL: Cranial nerves II through XII grossly intact. Normal speech, gait not observed. Laboratory Results - last 24 hr 05/05/17 05/05/17 05/05/17 18:40 20:00 20:00 WBC RBC Hgb Hct MCV MCH MCHC RDW Plt Count MPV Neutrophils % Lymphocytes % Monocytes % Eosinophils % Basophils % PTT (Actin FS) 42.8 H Sodium Potassium Chloride Carbon Dioxide Anion Gap BUN Creatinine Creat Clearance w eGFR Random Glucose Calcium Total Bilirubin AST ALT Alkaline Phosphatase Creatine Kinase 212 D Creatine Kinase Index 4.5 CK-MB (CK-2) 9.509 H CK-MB (CK-2) Rel Index Cancelled Troponin I 3.89 H* D Total Protein Albumin 05/06/17 05/06/17 05/06/17 01:30 05:35 05:35 WBC 8.1 RBC 4.37 Hgb 12.8 Hct 38.0 MCV 87.1 MCH 29.2 MCHC 33.5 RDW 13.4 Plt Count 160 MPV 9.8 Neutrophils % 73.0 Lymphocytes % 18.5 Monocytes % 8.1 Eosinophils % 0.1 Basophils % 0.3 PTT (Actin FS) 47.1 H Sodium 136 Potassium 4.5 Chloride 104 Carbon Dioxide 22 Anion Gap 10 BUN 55 H Creatinine 1.9 H Creat Clearance w eGFR 33.70 Random Glucose 125 H Calcium 8.6 Total Bilirubin 0.4 AST 27 D ALT 19 Alkaline Phosphatase 66 Creatine Kinase 133 Creatine Kinase Index CK-MB (CK-2) CK-MB (CK-2) Rel Index Troponin I 3.12 H* Total Protein 7.2 Albumin 3.5 05/06/17 09:50 WBC RBC Hgb Hct MCV MCH MCHC RDW Plt Count MPV Neutrophils % Lymphocytes % Monocytes % Eosinophils % Basophils % PTT (Actin FS) 69.3 H D Sodium Potassium Chloride Carbon Dioxide Anion Gap BUN Creatinine Creat Clearance w eGFR Random Glucose Calcium Total Bilirubin AST ALT Alkaline Phosphatase Creatine Kinase Creatine Kinase Index CK-MB (CK-2) CK-MB (CK-2) Rel Index Troponin I Total Protein Albumin Active Medications Generic Name Dose Route Start Last Admin Trade Name Freq PRN Reason Stop Dose Admin Acetaminophen 650 mg 05/03/17 15:22 Tylenol - PO Q6H PRN FEVER OR PAIN Albuterol Sulfate 1 amp 05/03/17 16:13 Ventolin 0.083% Nebulizer Soln - NEB Q6H PRN SHORT OF BREATH/WHEEZING Aspirin 81 mg 05/04/17 10:00 05/06/17 09:36 Ecotrin - PO 81 mg DAILY [facility] Administration Atorvastatin Calcium 20 mg 05/05/17 22:00 05/05/17 21:22 Lipitor - PO 20 mg HS JER[facility]AS Administration Docusate Sodium 100 mg 05/03/17 22:00 05/06/17 05:59 Colace - PO Not Given TID JER[facility] Furosemide 40 mg 05/05/17 10:00 05/06/17 09:36 Lasix Injection - IVPUSH 40 mg DAILY@1000 [facility] Administration Heparin Sodium (Porcine) 5,000 unit 05/04/17 21:07 Heparin - IVPUSH PRN PRN Heparin Sodium (Porcine) 1,000 unit 05/04/17 21:07 05/06/17 03:37 Heparin - IVPUSH 1,000 unit PRN PRN Administration Heparin Sodium/Dextrose 500 mls @ 20 mls/hr 05/04/17 21:15 05/06/17 03:32 Heparin Infusion - IVPB 1,000 units/hr TITR [facility]ER[facility] Titration Protocol 1,000 UNITS/HR Metoprolol Tartrate 25 mg 05/05/17 22:00 05/06/17 09:37 Lopressor - PO 25 mg BID [facility] Administration Prednisone 20 mg 05/06/17 10:00 05/06/17 09:36 Deltasone - PO 20 mg DAILY [facility] Administration Spironolactone 12.5 mg 05/04/17 13:45 05/06/17 09:37 Aldactone - PO 12.5 mg DAILY JER[facility]AS Administration ASSESSMENT/PLAN 87 year-old male with a PMH of HTN, CAD s/p CABG x 5 years, long history of non- compliance with meds. Admitted with acute systolic heart failure, acute bronchitis, acute on chronic kidney disease, and found to have NSTEMI. Acute systolic heart failure --05/03 echo: LV severely reduced; severe global hypokinesis; RV normal; LAE; mild MR; mild TR; mild pHTN; mild PI --BNP 7034 --continue IV Lasix, spironolactone NSTEMI CAD s/p CABG Hypertension Hyperlipidemia --troponin peak @ 11 on this admission, trending steadily down --continue heparin drip --continue atorvastatin, ASA --increase metoprolol to 37.5mg BID with goal of improving HR without dropping BP too low --discussed with Dr. Lainez, need to resolve renal issues before making definitive decision about cardiac cath Acute on chronic kidney disease --Cr was 1.6 in February 2017, now 1.9 and US shows signs of cortical thinning consistent with CKD --monitor closely on diuretics Acute bronchitis --no fever, no leukocytosis --05/02 CT chest: nonspecific RUL and RLL interstitial thickening F/E/N Fluids: PO intake adequate Electrolytes: replete as indicated Nutrition: low sodium DVT prophylaxis: on heparin drip PT evaluation Daily PT Dispo: continues to require inpatient care. Full code. Visit type - Emergency Visit Emergency Visit: Yes ED Registration Date: 05/05/17 Care time: The patient presented to the Emergency Department on the above date and was hospitalized for further evaluation of their emergent condition. - New Patient This patient is new to me today: Yes Date on this admission: 05/06/17 - Critical Care Critical Care patient: No
--- NOTE | 2017-05-06 20:37 | PN ---
Progress Note (short form) - Note Progress Note: 87 sear old male known case of CAD,s/p CABG,angina pectoris,COPD admitted with acute LV failure, rising cardiac enzymes and ECG abnormalities consistent with NSTEMI, and revealed severe LV systolic dysfunction and severe wall motion abnormalities. acute on chronic kidney disease. During hospitalisation no chest discomfort reported.currently has no SOB, resting comfortably.Heart has decreased, hemodynamics have started to stablise.Cough is subsiding.Clinically patient has both TR & MR. Tropinins trending downward. Home Medication List Medication Instructions Recorded Confirmed Type Lisinopril 10 mg PO DAILY 02/22/17 05/03/17 History Active Medications Generic Name Dose Route Start Last Admin Trade Name Freq PRN Reason Stop Dose Admin Acetaminophen 650 mg 05/03/17 15:22 Tylenol - PO Q6H PRN FEVER OR PAIN Albuterol Sulfate 1 amp 05/03/17 16:13 Ventolin 0.083% Nebulizer Soln - NEB Q6H PRN SHORT OF BREATH/WHEEZING Aspirin 81 mg 05/04/17 10:00 05/06/17 09:36 Ecotrin - PO 81 mg DAILY JER[facility]AS Administration Atorvastatin Calcium 20 mg 05/05/17 22:00 05/05/17 21:22 Lipitor - PO 20 mg HS JEREMÍAS Administration Docusate Sodium 100 mg 05/03/17 22:00 05/06/17 14:33 Colace - PO 100 mg TID JEREMÍAS Administration Furosemide 20 mg 05/07/17 06:00 Lasix Injection - IVPUSH BID@0600,1400 JEREMÍAS Heparin Sodium (Porcine) 5,000 unit 05/04/17 21:07 Heparin - IVPUSH PRN PRN Heparin Sodium (Porcine) 1,000 unit 05/04/17 21:07 05/06/17 03:37 Heparin - IVPUSH 1,000 unit PRN PRN Administration Heparin Sodium/Dextrose 500 mls @ 20 mls/hr 05/04/17 21:15 05/06/17 03:32 Heparin Infusion - IVPB 1,000 units/hr TITR JEREMÍAS Titration Protocol 1,000 UNITS/HR Metoprolol Tartrate 37.5 mg 05/06/17 15:19 Lopressor - PO BID JEREMÍAS Prednisone 20 mg 05/06/17 10:00 05/06/17 09:36 Deltasone - PO 20 mg DAILY JEREMÍAS Administration Spironolactone 12.5 mg 05/04/17 13:45 05/06/17 09:37 Aldactone - PO 12.5 mg DAILY JEREMÍAS Administration Vital Signs - 24 hr 05/05/17 05/05/17 05/06/17 20:20 22:00 02:00 Temperature 98.2 F 97.4 F L Pulse Rate 92 H 93 H 87 Respiratory 18 18 18 Rate Blood Pressure 129/86 129/86 117/69 O2 Sat by Pulse 98 Oximetry (%) 05/06/17 05/06/17 05/06/17 05:00 05:30 07:36 Temperature 98 F 98.1 F Pulse Rate 81 87 Respiratory 18 18 18 Rate Blood Pressure 123/79 123/77 O2 Sat by Pulse 98 Oximetry (%) 05/06/17 05/06/17 07:51 15:20 Temperature 97.6 F Pulse Rate 92 H Respiratory 18 16 Rate Blood Pressure 133/48 O2 Sat by Pulse 98 Oximetry (%) NECK: supple, noJVD, pulsatile neck veins, carotids equal. HEART: PMI 5th ICS S1and S@ normal, grade II/VII systolic murmur LSB and apex., no gallops heard. LUNGS: Clear. ABDOMEN: Soft, nontender,no organomegaly. EXT: No calf tenderness 1+ ankle edema. Abnormal Lab Results 05/05/17 05/06/17 05/06/17 20:00 01:30 05:35 PTT (Actin FS) 47.1 H BUN 55 H Creatinine 1.9 H Random Glucose 125 H CK-MB (CK-2) 9.509 H Troponin I 3.89 H* D 3.12 H* 05/06/17 09:50 PTT (Actin FS) 69.3 H D BUN Creatinine Random Glucose CK-MB (CK-2) Troponin I A: 1. CAD,s/p CABG,NSTEMI. 2. Acute LV failure, resolving. 3. Acute on chronic renal failure. 4. COPD. 5. Poor compliance. 6. Severe LV systolic dysfunctin RECOMMENDATIONS: 1. Add Plavix or Effient. 2. If patient is agreeable he should undergo a cardiac cath., provided renal function is trending downword. 3. F/U BMP and CBC.
[2017-05-06] MEDS: ATORVASTATIN CA 20 MG TABLET (FP) PO SCH (21:01)
[2017-05-07] MEDS: HEPARIN INFUSION - 500 ML IVPB SCH ×2 (03:40→21:20)
[2017-05-07] MEDS: DOCUSATE SODIUM 100 MG CAPSULE (FP) PO SCH ×3 (06:05→21:03)
[2017-05-07] MEDS: FUROSEMIDE 40 MG/4 ML INJECTABLE VIAL IVPUSH SCH ×2 (06:05→14:00)
[2017-05-07 07:57] LABS: BASOPHIL 0.4 % (0-2.0); EOSINOPHIL 0.6 % (0-4.5); MCHC 33.1 g/dl (32.0-35.9); MEAN CELL VOLUME 87.4 fl (80-96); MEAN PLT VOLUME 10.5 fl (7.5-11.1); NEUTROPHILS 67.3 % (42.8-82.8); PLATELET COUNT 179 K/MM3 (134-434); RDW 13.4 % (11.9-15.9); WHITE BLOOD COUNT 9.6 K/mm3 (4.0-10.0)
[2017-05-07 08:15] LABS: ALBUMIN 3.8 g/dl (3.4-5.0); ALK PHOS 84 U/L (45-117); ANION GAP 9 (8-16); BILIRUBIN,TOTAL 0.4 mg/dL (0.2-1.0); CALCIUM 9.3 mg/dL (8.5-10.1); CO2 27 mmol/L (21-32); CREATININE 1.9 mg/dL (0.7-1.3); GLUCOSE,RANDOM 107 mg/dL (74-106); MAGNESIUM 2.3 mg/dL (1.8-2.4); SGOT/AST 28 U/L (15-37); SGPT/ALT 28 U/L (12-78)
[2017-05-07] MEDS: SPIRONOLACTONE 25 MG TABLET (FP) PO SCH (09:13)
[2017-05-07] MEDS: METOPROLOL TARTRATE 25 MG TABLET (FP) PO SCH ×2 (09:13→21:04)
[2017-05-07] MEDS: predniSONE 20 MG TABLET (UD) PO SCH (09:14)
[2017-05-07] MEDS: ASPIRIN COATED 81 MG TABLET.EC PO SCH (09:14)
--- NOTE | 2017-05-07 11:03 | PN ---
Progress Note, Physician History of Present Illness: PULMONARY ALERT,AMBULATING ,-SOB,-CP - Current Medication List Current Medications: Active Medications Acetaminophen (Tylenol -) 650 mg PO Q6H PRN PRN Reason: FEVER OR PAIN Albuterol Sulfate (Ventolin 0.083% Nebulizer Soln -) 1 amp NEB Q6H PRN PRN Reason: SHORT OF BREATH/WHEEZING Aspirin (Ecotrin -) 81 mg PO DAILY [facility] Last Admin: 05/07/17 09:14 Dose: 81 mg Atorvastatin Calcium (Lipitor -) 20 mg PO HS [facility] Last Admin: 05/06/17 21:01 Dose: 20 mg Docusate Sodium (Colace -) 100 mg PO TID [facility] Last Admin: 05/07/17 06:05 Dose: Not Given Furosemide (Lasix Injection -) 20 mg IVPUSH BID@0600,1400 [facility] Last Admin: 05/07/17 06:05 Dose: 20 mg Heparin Sodium (Porcine) (Heparin -) 5,000 unit IVPUSH PRN PRN Heparin Sodium (Porcine) (Heparin -) 1,000 unit IVPUSH PRN PRN Last Admin: 05/06/17 03:37 Dose: 1,000 unit Heparin Sodium/Dextrose (Heparin Infusion -) 500 mls @ 20 mls/hr IVPB TITR JEREMÍAS ; 1,000 UNITS/HR PRN Reason: Protocol Last Admin: 05/07/17 03:40 Dose: 20 mls/hr Metoprolol Tartrate (Lopressor -) 37.5 mg PO BID [facility] Last Admin: 05/07/17 09:13 Dose: 37.5 mg Prednisone (Deltasone -) 20 mg PO DAILY [facility] Last Admin: 05/07/17 09:14 Dose: 20 mg Spironolactone (Aldactone -) 12.5 mg PO DAILY [facility] Last Admin: 05/07/17 09:13 Dose: 12.5 mg - Objective Vital Signs: Vital Signs Temperature 97.8 F 05/07/17 07:36 Pulse Rate 91 H 05/07/17 07:36 Respiratory Rate 18 05/07/17 07:39 Blood Pressure 134/72 05/07/17 07:36 O2 Sat by Pulse Oximetry (%) 97 05/07/17 07:39 Constitutional: Yes: Well Nourished, Calm Eyes: Yes: WNL HENT: Yes: WNL Neck: Yes: WNL Cardiovascular: Yes: Regular Rate and Rhythm, S1, S2 Respiratory: Yes: Rales (FEW BIBASILAR CRACKLES) Gastrointestinal: Yes: Normal Bowel Sounds, Soft Extremities: Yes: WNL Edema: Yes Edema: LLE: Trace, RLE: Trace Labs: CBC, BMP 05/07/17 05:35 05/07/17 05:35 Problem List - Problems (1) CAD (coronary artery disease) Code(s): I25.10 - ATHSCL HEART DISEASE OF [place] CORONARY ARTERY W/O ANG PCTRS (2) Chest pain Code(s): R07.9 - CHEST PAIN, UNSPECIFIED Qualifiers: Chest pain type: unspecified Qualified Code(s): R07.9 - Chest pain, unspecified (3) Chronic kidney disease (CKD) stage G3a/A2, moderately decreased glomerular filtration rate (GFR) between 45-59 mL/min/1.73 square meter and albuminuria creatinine ratio between 30-299 mg/g Code(s): N18.3 - CHRONIC KIDNEY DISEASE, STAGE 3 (MODERATE) (4) Dyspnea on exertion Code(s): R06.09 - OTHER FORMS OF DYSPNEA (5) Hypertension Code(s): I10 - ESSENTIAL (PRIMARY) HYPERTENSION (6) CHF (congestive heart failure) Code(s): I50.9 - HEART FAILURE, UNSPECIFIED (7) Non-ST elevated myocardial infarction Code(s): I21.4 - NON-ST ELEVATION (NSTEMI) MYOCARDIAL INFARCTION Assessment/Plan Assessment/Plan Decompensated CHF improving NSTEMI Acute Bronchitis CKD CABG HTN HPL COPD due to previous smoking ASA Lasix Spirolactone Prednisone same dose Zmax Beta Clover Follow renal function Cardiac w/u in progress ? card cath if pt consents and renal function improves DR ANGELA
--- NOTE | 2017-05-07 11:54 | PN ---
Progress Note (short form) - Note Progress Note: Renal Follow up for EDITA/CKD Pt seen and examined in the solarium SOB is improving no chest pain no N/V/D pt states that he would not want to have cardiac cath and wants to pursue medical management Vital Signs Temperature 97.8 F 05/07/17 07:36 Pulse Rate 91 H 05/07/17 07:36 Respiratory Rate 18 05/07/17 07:39 Blood Pressure 134/72 05/07/17 07:36 O2 Sat by Pulse Oximetry (%) 97 05/07/17 07:39 Intake & Output 05/04/17 05/05/17 05/06/17 05/07/17 23:59 23:59 23:59 23:59 Intake Total 650 1328 746 520 Balance 650 1328 746 520 Weight 189 lb 2 oz 188 lb 190 lb 1.6 oz 190 lb 2 oz Gen: NAD CVS: RRR, No M/R Lungs: + rales at b/l lung bases Abd: soft NT/ND Ext: 1-2+ edema in LE CBC, BMP 05/07/17 05:35 05/07/17 05:35 Current Medications Acetaminophen (Tylenol -) 650 mg PO Q6H PRN PRN Reason: FEVER OR PAIN Albuterol Sulfate (Ventolin 0.083% Nebulizer Soln -) 1 amp NEB Q6H PRN PRN Reason: SHORT OF BREATH/WHEEZING Aspirin (Ecotrin -) 81 mg PO DAILY [facility] Last Admin: 05/07/17 09:14 Dose: 81 mg Atorvastatin Calcium (Lipitor -) 20 mg PO HS [facility] Last Admin: 05/06/17 21:01 Dose: 20 mg Docusate Sodium (Colace -) 100 mg PO TID [facility] Last Admin: 05/07/17 06:05 Dose: Not Given Furosemide (Lasix Injection -) 20 mg IVPUSH BID@0600,1400 [facility] Last Admin: 05/07/17 06:05 Dose: 20 mg Heparin Sodium (Porcine) (Heparin -) 5,000 unit IVPUSH PRN PRN Heparin Sodium (Porcine) (Heparin -) 1,000 unit IVPUSH PRN PRN Last Admin: 05/06/17 03:37 Dose: 1,000 unit Heparin Sodium/Dextrose (Heparin Infusion -) 500 mls @ 20 mls/hr IVPB TITR JEREMÍAS ; 1,000 UNITS/HR PRN Reason: Protocol Last Admin: 05/07/17 03:40 Dose: 20 mls/hr Metoprolol Tartrate (Lopressor -) 37.5 mg PO BID [facility] Last Admin: 05/07/17 09:13 Dose: 37.5 mg Prednisone (Deltasone -) 20 mg PO DAILY [facility] Last Admin: 05/07/17 09:14 Dose: 20 mg Spironolactone (Aldactone -) 12.5 mg PO DAILY [facility] Last Admin: 05/07/17 09:13 Dose: 12.5 mg A/P 87 year old male with a history of HTN and CAD s/p CABG x 5 yrs ago admitted with dry cough, dyspnea on minimal exertion #EDITA vs. CKD in setting of NSTEMI/CHF Cr was 1.6 in 02/2017 and Renal US shows signs of cortical thinning which are consistent with CKD Cr is now 1.9 and stable continue IV lasix 20mg IV BID as per cardiology Trend BUN/Cr and electrolytes #Contrast Nephropathy Risk Stratification Risk of contrast nephropathy is 26% (rise in serum Cr > 50%) and risk of immediate dialysis (1.2%) this was calculated using the [employer]IN[employer]IA calculator developed by Richelle et al pt was informed of risk and he expressed understanding #NSTEMI/CHF IV diuretics/ A/c with IV heparin Cardiology following Lobo Shrestha DO
--- NOTE | 2017-05-07 16:52 | PN ---
Physical Exam: SUBJECTIVE: Patient seen and examined oob, sitting in solarium. Feels well, wants to go home. OBJECTIVE: Vital Signs Period Temp Pulse Resp BP Sys/العلي Pulse Ox Last 24 Hr 97.4 F-97.9 F 74-94 18-20 129-136/68-78 97-97 GENERAL: The patient is awake, alert, and fully oriented, in no acute distress. HEAD: Normal with no signs of trauma. EYES: PERRL, extraocular movements intact, sclera anicteric, conjunctiva clear. No ptosis. ENT: Ears normal, nares patent, oropharynx clear without exudates, moist mucous membranes. NECK: Trachea midline, full range of motion, supple. LUNGS: Mild bibasilar crackles HEART: Regular rate and rhythm, S1, S2 without murmur, rub or gallop. ABDOMEN: Soft, nontender, nondistended, normoactive bowel sounds, no guarding, no rebound, no hepatosplenomegaly, no masses. EXTREMITIES: 2+ pulses, warm, well-perfused, 1+ edema bilaterally NEUROLOGICAL: Cranial nerves II through XII grossly intact. Normal speech, gait not observed. Laboratory Results - last 24 hr 05/07/17 05/07/17 05/07/17 05:35 05:35 05:35 WBC 9.6 RBC 4.72 Hgb 13.7 Hct 41.3 MCV 87.4 MCH 29.0 MCHC 33.1 RDW 13.4 Plt Count 179 MPV 10.5 Neutrophils % 67.3 Lymphocytes % 22.1 Monocytes % 9.6 Eosinophils % 0.6 D Basophils % 0.4 PTT (Actin FS) 71.6 H Sodium 135 L Potassium 4.4 Chloride 99 Carbon Dioxide 27 D Anion Gap 9 BUN 57 H Creatinine 1.9 H Creat Clearance w eGFR 33.70 Random Glucose 107 H Calcium 9.3 Magnesium 2.3 Total Bilirubin 0.4 AST 28 ALT 28 D Alkaline Phosphatase 84 D Total Protein 8.0 Albumin 3.8 Active Medications Generic Name Dose Route Start Last Admin Trade Name Freq PRN Reason Stop Dose Admin Acetaminophen 650 mg 05/03/17 15:22 Tylenol - PO Q6H PRN FEVER OR PAIN Albuterol Sulfate 1 amp 05/03/17 16:13 Ventolin 0.083% Nebulizer Soln - NEB Q6H PRN SHORT OF BREATH/WHEEZING Aspirin 81 mg 07/22/17 10:00 05/07/17 09:14 Ecotrin - PO 81 mg DAILY [facility] Administration Atorvastatin Calcium 20 mg 05/05/17 22:00 05/06/17 21:01 Lipitor - PO 20 mg HS [facility]ER[facility]ÍAS Administration Docusate Sodium 100 mg 05/03/17 22:00 05/07/17 13:25 Colace - PO Not Given TID [facility] Furosemide 20 mg 05/07/17 06:00 05/07/17 14:00 Lasix Injection - IVPUSH 20 mg BID@0600,1400 [facility] Administration Heparin Sodium (Porcine) 5,000 unit 05/04/17 21:07 Heparin - IVPUSH PRN PRN Heparin Sodium (Porcine) 1,000 unit 05/04/17 21:07 05/06/17 03:37 Heparin - IVPUSH 1,000 unit PRN PRN Administration Heparin Sodium/Dextrose 500 mls @ 20 mls/hr 05/04/17 21:15 05/07/17 03:40 Heparin Infusion - IVPB 20 mls/hr TITR JER[facility]AS Administration Protocol 1,000 UNITS/HR Metoprolol Tartrate 37.5 mg 05/06/17 15:19 05/07/17 09:13 Lopressor - PO 37.5 mg BID [facility] Administration Prednisone 20 mg 05/06/17 10:00 05/07/17 09:14 Deltasone - PO 20 mg DAILY [facility] Administration Spironolactone 12.5 mg 05/04/17 13:45 05/07/17 09:13 Aldactone - PO 12.5 mg DAILY [facility] Administration ASSESSMENT/PLAN 87 year-old male with a PMH of HTN, CAD s/p CABG x 5 years, long history of non- compliance with meds. Admitted with acute systolic heart failure, acute bronchitis, acute on chronic kidney disease, and found to have NSTEMI. Acute systolic heart failure --05/03 echo: LV severely reduced; severe global hypokinesis; RV normal; LAE; mild MR; mild TR; mild pHTN; mild PI --BNP 7034 --net weight gain 1kg since admission, no improvement in edema although patient states the leg edema is at his baseline --continue same dose IV Lasix, spironolactone NSTEMI CAD s/p CABG Hypertension Hyperlipidemia --patient does not want cardiac cath, opts for medical management --will discuss discharge medication regimen with cardiology --for now continue heparin drip, metoprolol, Lipitor, ASA Acute on chronic kidney disease --Cr was 1.6 in February 2017, now 1.9 and US shows signs of cortical thinning consistent with CKD --monitor closely on diuretics Acute bronchitis --no fever, no leukocytosis --05/02 CT chest: nonspecific RUL and RLL interstitial thickening F/E/N Fluids: PO intake adequate Electrolytes: replete as indicated Nutrition: low sodium DVT prophylaxis: on heparin drip PT evaluation Daily PT Dispo: continues to require inpatient care. Full code. Visit type - Emergency Visit Emergency Visit: Yes ED Registration Date: 05/05/17 Care time: The patient presented to the Emergency Department on the above date and was hospitalized for further evaluation of their emergent condition. - New Patient This patient is new to me today: No - Critical Care Critical Care patient: No
[2017-05-07] MEDS: ATORVASTATIN CA 20 MG TABLET (FP) PO SCH (21:04)
--- NOTE | 2017-05-07 22:19 | PN ---
Progress Note (short form) - Note Progress Note: 87 sear old male known case of CAD,s/p CABG,angina pectoris,COPD admitted with acute LV failure, rising cardiac enzymes and ECG abnormalities consistent with NSTEMI, and revealed severe LV systolic dysfunction and severe wall motion abnormalities. acute on chronic kidney disease. He wants go home and only wants to treated medically. does not any intervention or testing. No chest pain, no dyspnea or palpations tolerating current therapy. Active Medications Generic Name Dose Route Start Last Admin Trade Name Freq PRN Reason Stop Dose Admin Acetaminophen 650 mg 05/03/17 15:22 Tylenol - PO Q6H PRN FEVER OR PAIN Albuterol Sulfate 1 amp 05/03/17 16:13 Ventolin 0.083% Nebulizer Soln - NEB Q6H PRN SHORT OF BREATH/WHEEZING Aspirin 81 mg 05/04/17 10:00 05/07/17 09:14 Ecotrin - PO 81 mg DAILY [facility] Administration Atorvastatin Calcium 20 mg 05/05/17 22:00 05/07/17 21:04 Lipitor - PO 20 mg HS [facility]AS Administration Docusate Sodium 100 mg 05/03/17 22:00 05/07/17 21:03 Colace - PO Not Given TID JER[facility]AS Furosemide 20 mg 05/07/17 06:00 05/07/17 14:00 Lasix Injection - IVPUSH 20 mg BID@0600,1400 [facility] Administration Heparin Sodium (Porcine) 5,000 unit 05/04/17 21:07 Heparin - IVPUSH PRN PRN Heparin Sodium (Porcine) 1,000 unit 05/04/17 21:07 05/06/17 03:37 Heparin - IVPUSH 1,000 unit PRN PRN Administration Heparin Sodium/Dextrose 500 mls @ 20 mls/hr 05/04/17 21:15 05/07/17 03:40 Heparin Infusion - IVPB 20 mls/hr TITR [facility] Administration Protocol 1,000 UNITS/HR Metoprolol Tartrate 37.5 mg 05/06/17 15:19 05/07/17 21:04 Lopressor - PO 37.5 mg BID [facility] Administration Prednisone 20 mg 05/06/17 10:00 05/07/17 09:14 Deltasone - PO 20 mg DAILY [facility] Administration Spironolactone 12.5 mg 05/04/17 13:45 05/07/17 09:13 Aldactone - PO 12.5 mg DAILY [facility] Administration Vital Signs - 8 hr 05/07/17 05/07/17 05/07/17 18:00 21:00 22:00 Temperature 97.6 F 97.9 F Pulse Rate 83 90 Respiratory 18 18 Rate Blood Pressure 119/55 132/69 O2 Sat by Pulse 97 Oximetry (%) NECK: supple, noJVD, pulsatile neck veins, carotids equal. HEART: PMI 5th ICS S1and S2 normal, grade II/VII systolic murmur LSB and apex., no gallops heard. LUNGS: [place] auscultation ABDOMEN: Soft, nontender,no organomegaly. EXT: No calf tenderness 1+ ankle edema. Abnormal Lab Results Laboratory Results - last 24 hr 05/07/17 05/07/17 05/07/17 05:35 05:35 05:35 WBC 9.6 RBC 4.72 Hgb 13.7 Hct 41.3 MCV 87.4 MCH 29.0 MCHC 33.1 RDW 13.4 Plt Count 179 MPV 10.5 Neutrophils % 67.3 Lymphocytes % 22.1 Monocytes % 9.6 Eosinophils % 0.6 D Basophils % 0.4 PTT (Actin FS) 71.6 H Sodium 135 L Potassium 4.4 Chloride 99 Carbon Dioxide 27 D Anion Gap 9 BUN 57 H Creatinine 1.9 H Creat Clearance w eGFR 33.70 Random Glucose 107 H Calcium 9.3 Magnesium 2.3 Total Bilirubin 0.4 AST 28 ALT 28 D Alkaline Phosphatase 84 D Total Protein 8.0 Albumin 3.8 A: 1. CAD,s/p CABG,NSTEMI. 2. S/P acute LV failure 3. Acute on chronic renal failure. 4. COPD. 5. Poor compliance. 6. Severe LV systolic dysfunction RECOMMENDATIONS: 1. Add Plavix or Effient. 2. Discontinue heparin 3. Titrate metoprolol to 50mg. q12h 4. Increase ambulation 5. dietary instructions.
[2017-05-08] MEDS: DOCUSATE SODIUM 100 MG CAPSULE (FP) PO SCH (06:04)
[2017-05-08] MEDS: FUROSEMIDE 40 MG/4 ML INJECTABLE VIAL IVPUSH SCH (06:04)
[2017-05-08] MEDS: HEPARIN INFUSION - 500 ML IVPB SCH (06:50)
[2017-05-08 08:38] LABS: ANION GAP 10 (8-16); CALCIUM 9.4 mg/dL (8.5-10.1); CO2 29 mmol/L (21-32); GLUCOSE,RANDOM 117 mg/dL (74-106); MAGNESIUM 2.5 mg/dL (1.8-2.4); PHOSPHOROUS 4.8 mg/dL (2.5-4.9)
[2017-05-08] MEDS: METOPROLOL TARTRATE 25 MG TABLET (FP) PO SCH (09:32)
[2017-05-08] MEDS: ASPIRIN COATED 81 MG TABLET.EC PO SCH (09:32)
[2017-05-08] MEDS: SPIRONOLACTONE 25 MG TABLET (FP) PO SCH (09:32)
[2017-05-08] MEDS: predniSONE 20 MG TABLET (UD) PO SCH (09:32)
[2017-05-08] MEDS ORDERED: CLOPIDOGREL BISULFATE 75 MG TABLET (FP) PO SCH (10:00)
[2017-05-08 10:46] VITALS: BP 110/57; PULSE 86; TEMP 97.8
--- NOTE | 2017-05-08 10:53 | PN ---
Progress Note (short form) - Note Progress Note: MEDICAL ATTENDING VSS/AFEBRILE No cp/ No SOB ANICTERIC RIGHT BASE RHONCHI LEFT BASE CRACKLES S1S2 NSR BS+ SOFT NO EDEMA LABS/MEDS/NOTES/IMAGING REVIEWED Decompensated CHF improved/Refuses cath NSTEMI Acute Bronchitis CKD CABG HTN HPL COPD due to previous smoking ASA Lasix Spirolactone Prednisone taper outpatient Beta Clover Follow renal function Venkata BRINK MD
--- NOTE | 2017-05-08 10:56 | DS ---
Physical Examination Vital Signs: Vital Signs Temperature 97.8 F 05/08/17 10:00 Pulse Rate 86 05/08/17 10:00 Respiratory Rate 20 05/08/17 10:00 Blood Pressure 110/57 05/08/17 10:00 O2 Sat by Pulse Oximetry (%) 97 05/08/17 09:00 Findings/Remarks: DECOMPENSATED CHF/NEEDS CATH BUT REFUSES/IS GENERALLY NONCOMPLIANT WITH ALL SUGGESTIONS Venkata BRINK MD Constitutional: Yes: Calm Eyes: Yes: EOM Intact HENT: Yes: Normocephalic Neck: Yes: Trachea Midline Cardiovascular: Yes: Regular Rate and Rhythm Respiratory: Yes: Rhonchi (RIGHT BASE) Gastrointestinal: Yes: Normal Bowel Sounds ...Rectal Exam: Yes: Deferred Extremities: Yes: WNL Labs: CBC, BMP 05/07/17 05:35 05/08/17 05:40 REST REVIEWED Discharge Summary Reason For Visit: ORTHOPENIA,CHEST PAIN Current Active Problems Acute kidney failure (Acute) CAD (coronary artery disease) (Acute) CHF (congestive heart failure) (Acute) Chest pain (Acute) Chronic kidney disease (CKD) stage G3a/A2, moderately decreased glomerular filtration rate (GFR) between 45-59 mL/min/1.73 square meter and albuminuria creatinine ratio between 30-299 mg/g (Acute) DVT prophylaxis (Acute) Dyspnea on exertion (Acute) Hypertension (Acute) Non-ST elevated myocardial infarction (Acute) Orthopnea (Acute) Renal insufficiency (Acute) Condition: Stable - Instructions Referrals: Anmol Brink MD [Primary Care Provider] - - Home Medications Comprehensive Discharge Medication List: Ambulatory Orders Lisinopril 10 mg PO DAILY 02/22/17
--- NOTE | 2017-05-08 11:04 | HOSP ---
Physical Examination Vital Signs: Vital Signs Temperature 97.8 F 05/08/17 10:00 Pulse Rate 86 05/08/17 10:00 Respiratory Rate 20 05/08/17 10:00 Blood Pressure 110/57 05/08/17 10:00 O2 Sat by Pulse Oximetry (%) 97 05/08/17 09:00 Labs: CBC, BMP 05/07/17 05:35 05/08/17 05:40 Hospitalist Encounter Assessment: Patient seen and examined. Declines chest pain or shortness of breath. Again refuses cardiac catheterization or any further testing. Dr. Casey to resume care.
--- NOTE | 2017-05-08 11:14 | PN ---
Progress Note (short form) - Note Progress Note: 87 sear old male known case of CAD,s/p CABG,angina pectoris, admitted with acute LV failure, rising cardiac enzymes and ECG abnormalities consistent with NSTEMI,COPD, severe LV systolic. Tricuspid and mitral regurgition,acute on chronic kidney disease and poor compliance. No H/O of chest pain or discomfort. No dyspnea or PND.Tolerating the current therapy.He has refused any further testing and will not consider a cardiac cath. Active Medications NECK: supple, noJVD, pulsatile neck veins, carotids equal. HEART: PMI 5th ICS S1and S2 normal, grade II/VII systolic murmur LSB and apex., no gallops heard. LUNGS: [place] auscultation ABDOMEN: Soft, nontender,no organomegaly. EXT: No calf tenderness 1+ ankle edema. Abnormal Lab Results Laboratory Results - last 24 hr 05/07/17 05/07/17 05/07/17 05:35 05:35 05:35 WBC 9.6 RBC 4.72 Hgb 13.7 Hct 41.3 MCV 87.4 MCH 29.0 MCHC 33.1 RDW 13.4 Plt Count 179 MPV 10.5 Neutrophils % 67.3 Lymphocytes % 22.1 Monocytes % 9.6 Eosinophils % 0.6 D Basophils % 0.4 PTT (Actin FS) 71.6 H Sodium 135 L Potassium 4.4 Chloride 99 Carbon Dioxide 27 D Anion Gap 9 BUN 57 H Creatinine 1.9 H Creat Clearance w eGFR 33.70 Random Glucose 107 H Calcium 9.3 Magnesium 2.3 Total Bilirubin 0.4 AST 28 ALT 28 D Alkaline Phosphatase 84 D Total Protein 8.0 Albumin 3.8 A: 1. CAD,s/p CABG,NSTEMI. 2. S/P acute LV failure 3. Acute on chronic renal failure. 4. COPD. 5. Poor compliance. 6. Severe LV systolic dysfunction RECOMMENDATIONS: 1. Add Plavix or Effient. 2. Discontinue heparin 3. Titrate metoprolol to 50mg. q12h 4. Increase ambulation 5. dietary instructions.
--- NOTE | 2017-05-08 11:58 | PN ---
Progress Note (short form) - Note Progress Note: Renal Follow up for EDITA/CKD Pt seen and examined in the [facility] SOB is improving no chest pain no N/V/D pt states that he would not want to have cardiac cath and wants to pursue medical management Vital Signs Temperature 97.8 F 05/07/17 07:36 Pulse Rate 91 H 05/07/17 07:36 Respiratory Rate 18 05/07/17 07:39 Blood Pressure 134/72 05/07/17 07:36 O2 Sat by Pulse Oximetry (%) 97 05/07/17 07:39 Intake & Output 05/04/17 05/05/17 05/06/17 05/07/17 23:59 23:59 23:59 23:59 Intake Total 650 1328 746 520 Balance 650 1328 746 520 Weight 189 lb 2 oz 188 lb 190 lb 1.6 oz 190 lb 2 oz Gen: NAD CVS: RRR, No M/R Lungs: + rales at b/l lung bases Abd: soft NT/ND Ext: 1-2+ edema in LE CBC, BMP 05/07/17 05:35 05/07/17 05:35 Current Medications Acetaminophen (Tylenol -) 650 mg PO Q6H PRN PRN Reason: FEVER OR PAIN Albuterol Sulfate (Ventolin 0.083% Nebulizer Soln -) 1 amp NEB Q6H PRN PRN Reason: SHORT OF BREATH/WHEEZING Aspirin (Ecotrin -) 81 mg PO DAILY JEREMÍAS Last Admin: 05/07/17 09:14 Dose: 81 mg Atorvastatin Calcium (Lipitor -) 20 mg PO HS JEREMÍAS Last Admin: 05/06/17 21:01 Dose: 20 mg Docusate Sodium (Colace -) 100 mg PO TID JEREMÍAS Last Admin: 05/07/17 06:05 Dose: Not Given Furosemide (Lasix Injection -) 20 mg IVPUSH BID@0600,1400 JEREMÍAS Last Admin: 05/07/17 06:05 Dose: 20 mg Heparin Sodium (Porcine) (Heparin -) 5,000 unit IVPUSH PRN PRN Heparin Sodium (Porcine) (Heparin -) 1,000 unit IVPUSH PRN PRN Last Admin: 05/06/17 03:37 Dose: 1,000 unit Heparin Sodium/Dextrose (Heparin Infusion -) 500 mls @ 20 mls/hr IVPB TITR JEREMÍAS ; 1,000 UNITS/HR PRN Reason: Protocol Last Admin: 05/07/17 03:40 Dose: 20 mls/hr Metoprolol Tartrate (Lopressor -) 37.5 mg PO BID [facility] Last Admin: 05/07/17 09:13 Dose: 37.5 mg Prednisone (Deltasone -) 20 mg PO DAILY [facility] Last Admin: 05/07/17 09:14 Dose: 20 mg Spironolactone (Aldactone -) 12.5 mg PO DAILY [facility] Last Admin: 05/07/17 09:13 Dose: 12.5 mg A/P 87 year old male with a history of HTN and CAD s/p CABG x 5 yrs ago admitted with dry cough, dyspnea on minimal exertion #EDITA vs. CKD in setting of NSTEMI/CHF Cr was 1.6 in 02/2017 and Renal US shows signs of cortical thinning which are consistent with CKD Renal function is stable to be discharged on oral laisx and aldactone will follow up in the office in 1-2 weeks #NSTEMI/CHF for Medical Management no ALYCE at this time because of cough will attempt ARB as outpatient Lobo Shrestha DO
--- NOTE | 2017-05-08 12:00 | PN ---
Progress Note (short form) - Note Progress Note: 87 year old male with H/O CAD,CABG,angina pectoris, recent NSTEMI, acute LV failure, severe LV systolic dysfunction, acute on CKD, tricuspid and mitral regurgition. No H/O chest pain or discomft, no PND orthopnea, no palpitations, dizziness or syncope.He has refused to have any further testing or intervention. Active Medications Generic Name Dose Route Start Last Admin Trade Name Freq PRN Reason Stop Dose Admin Acetaminophen 650 mg 05/03/17 15:22 Tylenol - PO Q6H PRN FEVER OR PAIN Albuterol Sulfate 1 amp 05/03/17 16:13 Ventolin 0.083% Nebulizer Soln - NEB Q6H PRN SHORT OF BREATH/WHEEZING Aspirin 81 mg 05/04/17 10:00 05/08/17 09:32 Ecotrin - PO 81 mg DAILY JEREMÍAS Administration Atorvastatin Calcium 20 mg 05/05/17 22:00 05/07/17 21:04 Lipitor - PO 20 mg HS JEREMÍAS Administration Clopidogrel Bisulfate 75 mg 05/08/17 10:00 05/08/17 11:11 Plavix - PO 75 mg DAILY JEREMÍAS Administration Docusate Sodium 100 mg 05/03/17 22:00 05/08/17 06:04 Colace - PO Not Given TID JEREMÍAS Furosemide 20 mg 05/07/17 06:00 05/08/17 06:04 Lasix Injection - IVPUSH 20 mg BID@0600,1400 JEREMÍAS Administration Heparin Sodium (Porcine) 5,000 unit 05/04/17 21:07 Heparin - IVPUSH PRN PRN Heparin Sodium (Porcine) 1,000 unit 05/04/17 21:07 05/06/17 03:37 Heparin - IVPUSH 1,000 unit PRN PRN Administration Heparin Sodium/Dextrose 500 mls @ 20 mls/hr 05/04/17 21:15 05/08/17 06:50 Heparin Infusion - IVPB 20 mls/hr TITR JEREMÍAS Administration Protocol 1,000 UNITS/HR Metoprolol Tartrate 37.5 mg 05/06/17 15:19 05/08/17 09:32 Lopressor - PO 37.5 mg BID JEREMÍAS Administration Prednisone 20 mg 05/06/17 10:00 05/08/17 09:32 Deltasone - PO 20 mg DAILY JEREMÍAS Administration Spironolactone 12.5 mg 05/04/17 13:45 05/08/17 09:32 Aldactone - PO 12.5 mg DAILY JEREMÍAS Administration O: 87 year male was in no distress, no pallor, cyanosis or jaundice. Vital Signs - 24 hr 05/07/17 05/07/17 05/07/17 14:30 18:00 21:00 Temperature 97.6 F 97.6 F Pulse Rate 83 83 Respiratory 18 18 Rate Blood Pressure 130/68 119/55 O2 Sat by Pulse 97 Oximetry (%) 05/07/17 05/08/17 05/08/17 22:00 02:53 05:51 Temperature 97.9 F 97.4 F L 98.0 F Pulse Rate 90 72 77 Respiratory 18 18 18 Rate Blood Pressure 132/69 129/51 139/77 O2 Sat by Pulse Oximetry (%) 05/08/17 05/08/17 09:00 10:00 Temperature 97.8 F Pulse Rate 86 Respiratory 20 Rate Blood Pressure 110/57 O2 Sat by Pulse 97 Oximetry (%) NECK: supple, no JVD, carotids 2+No bruits, no thyromegaly. HEART: PMI in the 5th ICS, no heaves or thrills.Grade II/ systolic murmur LSB and apex.Nogallops heard. LUNGS: fine creps heard at both bases. ABDOMEN: soft, nontender,no organomegaly. EXT: No calf tenderness or dependent edema. Active Medications Generic Name Dose Route Start Last Admin Trade Name Freq PRN Reason Stop Dose Admin Acetaminophen 650 mg 05/03/17 15:22 Tylenol - PO Q6H PRN FEVER OR PAIN Albuterol Sulfate 1 amp 05/03/17 16:13 Ventolin 0.083% Nebulizer Soln - NEB Q6H PRN SHORT OF BREATH/WHEEZING Aspirin 81 mg 05/04/17 10:00 05/08/17 09:32 Ecotrin - PO 81 mg DAILY JEREMÍAS Administration Atorvastatin Calcium 20 mg 05/05/17 22:00 05/07/17 21:04 Lipitor - PO 20 mg HS JEREMÍAS Administration Clopidogrel Bisulfate 75 mg 05/08/17 10:00 05/08/17 11:11 Plavix - PO 75 mg DAILY JEREMÍAS Administration Docusate Sodium 100 mg 05/03/17 22:00 05/08/17 06:04 Colace - PO Not Given TID JEREMÍAS Furosemide 20 mg 05/07/17 06:00 05/08/17 06:04 Lasix Injection - IVPUSH 20 mg BID@0600,1400 JEREMÍAS Administration Heparin Sodium (Porcine) 5,000 unit 05/04/17 21:07 Heparin - IVPUSH PRN PRN Heparin Sodium (Porcine) 1,000 unit 05/04/17 21:07 05/06/17 03:37 Heparin - IVPUSH 1,000 unit PRN PRN Administration Heparin Sodium/Dextrose 500 mls @ 20 mls/hr 05/04/17 21:15 05/08/17 06:50 Heparin Infusion - IVPB 20 mls/hr TITR JEREMÍAS Administration Protocol 1,000 UNITS/HR Metoprolol Tartrate 37.5 mg 05/06/17 15:19 05/08/17 09:32 Lopressor - PO 37.5 mg BID JEREMÍAS Administration Prednisone 20 mg 05/06/17 10:00 05/08/17 09:32 Deltasone - PO 20 mg DAILY JEREMÍAS Administration Spironolactone 12.5 mg 05/04/17 13:45 05/08/17 09:32 Aldactone - PO 12.5 mg DAILY JEREMÍAS Administration Laboratory Last Values WBC 9.6 K/mm3 (4.0-10.0) 05/07/17 05:35 RBC 4.72 M/mm3 (4.00-5.60) 05/07/17 05:35 Hgb 13.7 GM/dL (11.7-16.9) 05/07/17 05:35 Hct 41.3 % (35.4-49) 05/07/17 05:35 MCV 87.4 fl (80-96) 05/07/17 05:35 MCH 29.0 pg (25.7-33.7) 05/07/17 05:35 MCHC 33.1 g/dl (32.0-35.9) 05/07/17 05:35 RDW 13.4 % (11.9-15.9) 05/07/17 05:35 Plt Count 179 K/MM3 (134-434) 05/07/17 05:35 MPV 10.5 fl (7.5-11.1) 05/07/17 05:35 Neutrophils % 67.3 % (42.8-82.8) 05/07/17 05:35 Lymphocytes % 22.1 % (8-40) 05/07/17 05:35 Monocytes % 9.6 % (3.8-10.2) 05/07/17 05:35 Eosinophils % 0.6 % (0-4.5) D 05/07/17 05:35 Basophils % 0.4 % (0-2.0) 05/07/17 05:35 Differential Comment Manual diff done 05/03/17 13:05 Platelet Estimate Adequate (NORMAL) 05/03/17 13:05 PTT (Actin FS) 62.4 SECONDS (26.9-34.4) H 05/08/17 05:40 D-Dimer 326 ng/ml (<200-235) H 05/04/17 11:55 Sodium 135 mmol/L (136-145) L 05/08/17 05:40 Potassium 4.5 mmol/L (3.5-5.1) 05/08/17 05:40 Chloride 96 mmol/L (98-107) L 05/08/17 05:40 Carbon Dioxide 29 mmol/L (21-32) 05/08/17 05:40 Anion Gap 10 (8-16) 05/08/17 05:40 BUN 60 mg/dL (7-18) H 05/08/17 05:40 Creatinine 2.0 mg/dL (0.7-1.3) H 05/08/17 05:40 Creat Clearance w eGFR 33.70 (>60) 05/07/17 05:35 Random Glucose 117 mg/dL (74-106) H 05/08/17 05:40 Hemoglobin A1c % 6.2 % (4.8-6.0) H D 05/04/17 05:20 Uric Acid 8.8 mg/dL (2.6-7.2) H 05/05/17 05:50 Calcium 9.4 mg/dL (8.5-10.1) 05/08/17 05:40 Phosphorus 4.8 mg/dL (2.5-4.9) 05/08/17 05:40 Magnesium 2.5 mg/dL (1.8-2.4) H 05/08/17 05:40 Total Bilirubin 0.4 mg/dL (0.2-1.0) 05/07/17 05:35 AST 28 U/L (15-37) 05/07/17 05:35 ALT 28 U/L (12-78) D 05/07/17 05:35 Alkaline Phosphatase 84 U/L (45-117) D 05/07/17 05:35 Creatine Kinase 133 IU/L (39-308) 05/06/17 05:35 Creatine Kinase Index 4.5 % (0.0-5.0) 05/05/17 20:00 CK-MB (CK-2) 9.509 ng/ml (0.5-3.6) H 05/05/17 20:00 CK-MB (CK-2) Rel Index Cancelled 05/03/17 13:05 Troponin I 3.12 ng/ml (0.00-0.05) H* 05/06/17 05:35 B-Natriuretic Peptide 7034.36 pg/ml (5-450) H 05/03/17 13:05 Total Protein 8.0 g/dl (6.4-8.2) 05/07/17 05:35 Albumin 3.8 g/dl (3.4-5.0) 05/07/17 05:35 Triglycerides 59 mg/dL (35-160) D 05/04/17 05:20 Cholesterol 188 mg/dL (50-200) 05/04/17 05:20 Total LDL Cholesterol 122 mg/dL (5-100) H D 05/04/17 05:20 HDL Cholesterol 55 mg/dL (40-60) D 05/04/17 05:20 Urine Color Straw 05/04/17 15:20 Urine Appearance Clear 05/04/17 15:20 Urine pH 5.0 (5.0-8.0) 05/04/17 15:20 Ur Specific [place] 1.010 (1.005-1.025) 05/04/17 15:20 Urine Protein Negative (NEGATIVE) 05/04/17 15:20 Urine Glucose (UA) Negative (NEGATIVE) 05/04/17 15:20 Urine Ketones Negative (NEGATIVE) 05/04/17 15:20 Urine Blood Negative (NEGATIVE) 05/04/17 15:20 Urine Nitrite Negative (NEGATIVE) 05/04/17 15:20 Urine Bilirubin Negative (NEGATIVE) 05/04/17 15:20 Urine Urobilinogen Negative mg/dL (0.2-1.0) 05/04/17 15:20 Ur Leukocyte Esterase Negative (NEGATIVE) 05/04/17 15:20 IMPRESSION: 1. CAD S/P CABG NSTEMI. 2. Acute LV failure. 3. Acute on CKD 4. Severe LV systolic dysfunction. 5. COPD. 6. Poor compliance. RECOMMENDATIONS: 1. Close F/U of BMP. 2. Daily weights. 3. Dietary compliance,including salt restriction. 4. Patient was counceled regarding potential side effect relater=d o current therapy, including risk of bleeding. 5. out patient F/U.
[2017-05-11 00:08] LABS: A/G RATIO 0.8 (0.7-1.7); ALBUMIN 3.5 g/dL (2.9-4.4); GLOBULIN, TOTAL 4.2 g/dL (2.2-3.9); M-SPIKE Not Observed g/dL (Not Observed); TOTAL PROTEIN 7.7 g/dL (6.0-8.5)
== END 2017-05-08 14:21 | disposition home or self-care (01) | DRG 280 ==
LOC: JER 11:56 → OBSVTOIN 13:36 → JERBED 13:36 → INTOOBSV 13:36 → J4W 16:41 → OBSVTOIN 05-05 11:13
PROVIDERS: ADMIT Specialist; ATTEND Specialist
DX: I21.4 Non-ST elevation (NSTEMI) myocardial infarction (principal); I50.21 Acute systolic (congestive) heart failure; J44.0 Chronic obstructive pulmonary disease with (acute) lower respiratory infection; I13.0 Hypertensive heart and chronic kidney disease with heart failure and stage 1 through stage 4 chronic kidney disease, or unspecified chronic kidney disease; N17.9 Acute kidney failure, unspecified; I25.10 Atherosclerotic heart disease of native coronary artery without angina pectoris; R06.09 Other forms of dyspnea; E78.5 Hyperlipidemia, unspecified; N40.0 Benign prostatic hyperplasia without lower urinary tract symptoms; J20.9 Acute bronchitis, unspecified; I08.1 Rheumatic disorders of both mitral and tricuspid valves; R00.0 Tachycardia, unspecified; N18.3 Chronic kidney disease, stage 3 (moderate); Z95.1 Presence of aortocoronary bypass graft; Z87.891 Personal history of nicotine dependence
CPT/HCPCS: 36415; 71010-TC; 76775-TC; 76856-TC; 80048; 80053; 80061; 81003; 82550; 82553; 83036; 83721; 83735; 83880; 84100; 84155; 84165; 84484; 84550; 85025; 85379; 85730; 93005; 93010; 93306-TC; 94640; 97116-GP; 97161-GP; 99283-25; G0378; J1644

== ENCOUNTER 2017-05-10 03:17 | Emergency (ER) | payer BC, OTHER ==
--- NOTE | 2017-05-10 03:28 | PDOC ---
History of Present Illness - General Stated Complaint: SIDE EFFECTS FROM RX Time Seen by Provider: 05/10/17 03:24 History Source: Patient Exam Limitations: No Limitations - History of Present Illness Initial Comments: 05/10/17 03:42 CC: My medication is making me sick Patient is an 87 y.o. male with a PMH of HTN, CAD (s/p CABG) who presents to the ED this morning c/o disturbed sleep secondary to Atorvastatin. Patient states this was the first time he took the medication as it was prescribed following his recent hospitalization for chest pain. As per EMR, patient was evaluated at our facility (05/03-05/07/17) for full cardiac work-up at which time he was diagnosed with decompensated CHF but refused a cardiac catheterization. Patient eloped before full HPI could be conducted. Past History - Past Medical History Allergies/Adverse Reactions: Allergies Allergy/AdvReac Type Severity Reaction Status Date / Time amoxicillin trihydrate Allergy Verified 05/10/17 03:28 [From Augmentin] potassium clavulanate Allergy Verified 05/10/17 03:28 [From Augmentin] Home Medications: Ambulatory Orders Aspirin [ASA -] 81 mg PO DAILY #30 tab.chew 05/08/17 Atorvastatin Ca [Lipitor] 20 mg PO HS #30 tablet 05/08/17 Clopidogrel Bisulfate [Plavix -] 75 mg PO DAILY #30 tablet 05/08/17 Furosemide [Lasix] 40 mg PO DAILY #30 tablet 05/08/17 Metoprolol Tartrate 37.5 mg PO BID #30 tablet 05/08/17 Spironolactone [Aldactone] 12.5 mg PO DAILY #30 tablet 05/08/17 Cardiac Disorders: Yes (CABG (5 years ago)) CHF: Yes HTN: Yes Hypercholesterolemia: Yes - Surgical History Cardiac Surgery: Yes (OPEN HEART SX) - Immunization History Immunization Up to Date: Yes - Psycho/Social/Smoking Cessation Hx Anxiety: No Suicidal Ideation: No Smoking Status: No Smoking History: Former smoker Have you smoked in the past 12 months: No Number of Cigarettes Smoked Daily: 0 If you are a former smoker, when did you quit?: 1960 Hx Alcohol Use: No Drug/Substance Use Hx: No Substance Use Type: None Hx Substance Use Treatment: No Review of Systems - Review of Systems Constitutional: No: Chills, Diaphoresis, Malaise, Night Sweats HEENTM: No: Blurred Vision, Double Vision, Tinnitus, Throat Pain *DC/Admit/Observation/Transfer Diagnosis at time of Disposition: Eloped - Discharge Dispostion Disposition: ELOPED - Referrals Referrals: Anmol Casey MD [Primary Care Provider] -
[2017-05-10 03:41] VITALS: BP 160/95; PULSE 95; TEMP 97.6; BMI 29.0
== END 2017-05-10 04:12 | disposition left against medical advice (07) ==
LOC: JER 03:17
DX: Z53.21 Procedure and treatment not carried out due to patient leaving prior to being seen by health care provider (principal)
CPT/HCPCS: 99281-25

== ENCOUNTER 2017-05-10 18:01 | Emergency (ER) | payer BC, OTHER ==
[2017-05-10 18:21] VITALS: BP 161/91; PULSE 95; TEMP 97.9; BMI 29.0
--- NOTE | 2017-05-10 20:35 | PDOC ---
History of Present Illness - General History Source: Patient Exam Limitations: No Limitations - History of Present Illness Initial Comments: 05/10/17 20:36 The patient is a 87 year old male with a significant past medical history of HTN , CAD (s/p CABG) and MD (1 week ago) who presents to the ED with complaints of generalized weakness since earlier today. The patient was recently seen in the ED this morning for similar symptoms. Patient reports, prior to last week, he was never on medication but was recently prescribed new medications 2 days ago. He states he started taking Lipitor yesterday and since then reports generalized weakness. He also reports headache and slight constipation associated with present symptoms. Patient is concerned the Lipitor is the cause of present symptoms. Denies fevers or chills. Denies chest pain or shortness of breath. Denies abdominal pain, nausea, vomiting, or diarrhea. Denies any other symptoms. <Bernardo Wilson - Last Filed: 05/10/17 20:35> <Marycarmen Ramírez - Last Filed: 05/10/17 21:10> - General Chief Complaint: Weakness Stated Complaint: WEAKNESS Time Seen by Provider: 05/10/17 19:27 Past History <Bernardo Wilson - Last Filed: 05/10/17 20:35> - Past Medical History Cardiac Disorders: Yes (CABG (5 years ago)) CHF: Yes HTN: Yes Hypercholesterolemia: Yes - Surgical History Cardiac Surgery: Yes (OPEN HEART SX) - Immunization History Immunization Up to Date: Yes - Psycho/Social/Smoking Cessation Hx Anxiety: No Suicidal Ideation: No Smoking Status: No Smoking History: Former smoker Have you smoked in the past 12 months: No Number of Cigarettes Smoked Daily: 0 If you are a former smoker, when did you quit?: 1959 Information on smoking cessation initiated: No Hx Alcohol Use: No Drug/Substance Use Hx: No Substance Use Type: None Hx Substance Use Treatment: No <Marycarmen Ramírez - Last Filed: 05/10/17 21:10> - Past Medical History Allergies/Adverse Reactions: Allergies Allergy/AdvReac Type Severity Reaction Status Date / Time amoxicillin trihydrate Allergy Verified 05/10/17 18:17 [From Augmentin] potassium clavulanate Allergy Verified 05/10/17 18:17 [From Augmentin] Home Medications: Ambulatory Orders Aspirin [ASA -] 81 mg PO DAILY #30 tab.chew 05/08/17 Atorvastatin Ca [Lipitor] 20 mg PO HS #30 tablet 05/08/17 Metoprolol Tartrate 37.5 mg PO BID #30 tablet 05/08/17 Spironolactone [Aldactone] 12.5 mg PO DAILY #30 tablet 05/08/17 Clopidogrel Bisulfate [Plavix -] 75 mg PO AM 05/10/17 Furosemide [Lasix] 40 mg PO AM 05/10/17 Review of Systems - Review of Systems Able to Perform ROS?: Yes Comments:: 05/10/17 20:36 CONSTITUTIONAL: + generalized weakness Absent: fever, chills, diaphoresis, malaise, loss of appetite HEENT: Absent: rhinorrhea, nasal congestion, throat pain, throat swelling, difficulty swallowing, mouth swelling, ear pain, eye pain, visual Changes CARDIOVASCULAR: Absent: chest pain, syncope, palpitations, irregular heart rate, lightheadedness , peripheral edema RESPIRATORY: Absent: cough, shortness of breath, dyspnea with exertion, orthopnea, wheezing, stridor, hemoptysis GASTROINTESTINAL: + constipation Absent: abdominal pain, abdominal distension, nausea, vomiting, diarrhea, melena , hematochezia GENITOURINARY: Absent: dysuria, frequency, urgency, hesitancy, hematuria, flank pain, genital pain MUSCULOSKELETAL: Absent: myalgia, arthralgia, joint swelling SKIN: Absent: rash, itching, pallor HEMATOLOGIC/IMMUNOLOGIC: Absent: easy bleeding, easy bruising, lymphadenopathy, frequent infections ENDOCRINE: Absent: unexplained weight gain, unexplained weight loss, heat intolerance, cold intolerance NEUROLOGIC: + headache Absent: focal weakness or paresthesias, dizziness, unsteady gait, seizure, mental status changes, bladder or bowel incontinence PSYCHIATRIC: Absent: anxiety, depression, suicidal or homicidal ideation, hallucinations. All Other Systems: Reviewed and Negative <Bernardo Wilson - Last Filed: 05/10/17 20:35> *Physical Exam - Vital Signs Last Vital Signs Temp Pulse Resp BP Pulse Ox 97.9 F 95 H 19 161/91 97 05/10/17 18:17 05/10/17 18:17 05/10/17 18:17 05/10/17 18:17 05/10/17 18:17 - Physical Exam Comments: 05/10/17 20:36 GENERAL: Well developed, well nourished. Awake and alert. No acute distress. HEENT: Normocephalic, atraumatic. PERRLA, EOMI. No conjunctival pallor. Sclera are non- icteric. Moist mucous membranes. Oropharynx is clear. NECK: Supple. Full ROM. No JVD. Carotid pulses 2+ and symmetric, without bruits. No thyromegaly. NCo lymphadenopathy. CARDIOVASCULAR: + tachycardia. Regular rhythm. No murmurs, rubs, or gallops. Distal pulses are 2 + and symmetric. PULMONARY: No evidence of respiratory distress. Lungs clear to auscultation bilaterally. No wheezing, rales or rhonchi. ABDOMINAL: Soft. Non-tender. Non-distended. No rebound or guarding. No organomegaly. Normoactive bowel sounds. MUSCULOSKELETAL Normal range of motion at all joints. No bony deformities or tenderness. No CVA tenderness. EXTREMITIES: No cyanosis. No clubbing. No edema. No calf tenderness. SKIN: Warm and dry. Normal capillary refill. No rashes. No jaundice. NEUROLOGICAL: Alert, awake, appropriate. Cranial nerves 2-12 intact. No deficits to light touch and temperature in face, upper extremities and lower extremities. No motor deficits in the in face, upper extremities and lower extremities. Normoreflexic in the upper and lower extremities. Normal speech. Toes are down- going bilaterally. Gait is normal without ataxia. PSYCHIATRIC: Cooperative. Good eye contact. Appropriate mood and affect. <Bernardo Wilson - Last Filed: 05/10/17 20:35> - Vital Signs Last Vital Signs Temp Pulse Resp BP Pulse Ox 97.9 F 95 H 19 161/91 97 05/10/17 18:17 05/10/17 18:17 05/10/17 18:17 05/10/17 18:17 05/10/17 18:17 <Marycarmen Ramírez - Last Filed: 05/10/17 21:10> ED Treatment Course - RADIOLOGY Radiology Studies Ordered: Category Date Time Status CHEST PA & LAT [RAD] Stat Radiology 05/10/17 20:08 Ordered <Marycarmen Ramírez - Last Filed: 05/10/17 21:10> Medical Decision Making - Medical Decision Making 05/10/17 20:34 Pt walked out/eloped of the ER, as he is refusing blood testing. Pt had a CXR it looks normal. Pt was here in this AM at 3:45am with similar complaint, that his cholesterol meds are making him ill. <Marycarmen Ramírez - Last Filed: 05/10/17 21:10> *DC/Admit/Observation/Transfer - Attestations Scribe Attestion: 05/10/17 20:36 Documentation prepared by Bernardo Wilson, acting as medical planner for Marycarmen Ramírez MD <Bernardo Wilson - Last Filed: 05/10/17 20:35> <Marycarmen Ramírez - Last Filed: 05/10/17 21:10> Diagnosis at time of Disposition: Eloped, Weakness, Adverse effect of drug - Discharge Dispostion Disposition: ELOPED - Referrals Referrals: Anmol Casey MD [Primary Care Provider] -
== END 2017-05-10 20:39 | disposition home or self-care (01) ==
LOC: JER 18:01
DX: T46.6X5A Adverse effect of antihyperlipidemic and antiarteriosclerotic drugs, initial encounter (principal); I25.10 Atherosclerotic heart disease of native coronary artery without angina pectoris; I10 Essential (primary) hypertension; Z95.1 Presence of aortocoronary bypass graft; I25.2 Old myocardial infarction; E78.00 Pure hypercholesterolemia, unspecified
CPT/HCPCS: 71020-TC; 99282-25

== ENCOUNTER 2017-05-11 06:00 | Emergency (ER) | payer BC, OTHER ==
[2017-05-11 06:16] VITALS: BMI 29.0
--- NOTE | 2017-05-11 06:25 | PDOC ---
Attending Attestation - Resident Resident Name: Duane Lowery
--- NOTE | 2017-05-11 06:35 | PDOC ---
History of Present Illness - General History Source: Patient Exam Limitations: No Limitations - History of Present Illness Initial Comments: 05/11/17 06:41 The patient is a 87 year old male with a significant past medical history of HTN , CAD (s/p CABG) and AK (1 week ago) who presents to the ED with complaints of generalized weakness for one day. [facility]10 for present symptoms. Patient reports generalized weakness, headache, and slight constipation. He states his symptoms are related to taking Lipitor yesterday. Denies fevers or chills. Denies chest pain or shortness of breath. Denies abdominal pain, nausea, vomiting, and diarrhea. Denies any other symptoms. <Bernardo Wilson - Last Filed: 05/11/17 06:41> <Marycarmen Ramírez - Last Filed: 05/11/17 19:37> - General Chief Complaint: Pain Stated Complaint: DIZZINESS,CHEST PAIN Time Seen by Provider: 05/11/17 06:06 Past History <Bernardo Wilson - Last Filed: 05/11/17 06:41> - Past Medical History Cardiac Disorders: Yes (CABG (5 years ago)) CHF: Yes HTN: Yes Hypercholesterolemia: Yes - Surgical History Cardiac Surgery: Yes (OPEN HEART SX) - Immunization History Immunization Up to Date: Yes - Psycho/Social/Smoking Cessation Hx Anxiety: No Suicidal Ideation: No Smoking Status: No Smoking History: Former smoker Have you smoked in the past 12 months: No Number of Cigarettes Smoked Daily: 0 If you are a former smoker, when did you quit?: 1960 Information on smoking cessation initiated: No Hx Alcohol Use: No Drug/Substance Use Hx: No Substance Use Type: None Hx Substance Use Treatment: No <Marycarmen Ramírez - Last Filed: 05/11/17 19:37> - Past Medical History Allergies/Adverse Reactions: Allergies Allergy/AdvReac Type Severity Reaction Status Date / Time amoxicillin trihydrate Allergy Verified 05/11/17 06:13 [From Augmentin] potassium clavulanate Allergy Verified 05/11/17 06:13 [From Augmentin] Home Medications: Ambulatory Orders Aspirin [ASA -] 81 mg PO DAILY #30 tab.chew 05/08/17 Atorvastatin Ca [Lipitor] 20 mg PO HS #30 tablet 05/08/17 Metoprolol Tartrate 37.5 mg PO BID #30 tablet 05/08/17 Spironolactone [Aldactone] 12.5 mg PO DAILY #30 tablet 05/08/17 Clopidogrel Bisulfate [Plavix -] 75 mg PO AM 05/10/17 Furosemide [Lasix] 40 mg PO AM 05/10/17 Review of Systems - Review of Systems Able to Perform ROS?: Yes Comments:: 05/11/17 06:42 CONSTITUTIONAL: + generalized weakness Absent: fever, chills, diaphoresis, malaise, loss of appetite HEENT: Absent: rhinorrhea, nasal congestion, throat pain, throat swelling, difficulty swallowing, mouth swelling, ear pain, eye pain, visual Changes CARDIOVASCULAR: Absent: chest pain, syncope, palpitations, irregular heart rate, lightheadedness , peripheral edema RESPIRATORY: Absent: cough, shortness of breath, dyspnea with exertion, orthopnea, wheezing, stridor, hemoptysis GASTROINTESTINAL: + constipation Absent: abdominal pain, abdominal distension, nausea, vomiting, diarrhea, melena , hematochezia GENITOURINARY: Absent: dysuria, frequency, urgency, hesitancy, hematuria, flank pain, genital pain MUSCULOSKELETAL: Absent: myalgia, arthralgia, joint swelling SKIN: Absent: rash, itching, pallor HEMATOLOGIC/IMMUNOLOGIC: Absent: easy bleeding, easy bruising, lymphadenopathy, frequent infections ENDOCRINE: Absent: unexplained weight gain, unexplained weight loss, heat intolerance, cold intolerance NEUROLOGIC: + headache Absent: focal weakness or paresthesias, dizziness, unsteady gait, seizure, mental status changes, bladder or bowel incontinence PSYCHIATRIC: Absent: anxiety, depression, suicidal or homicidal ideation, hallucinations. All Other Systems: Reviewed and Negative <Bernardo Wilson - Last Filed: 05/11/17 06:41> *Physical Exam - Vital Signs Last Vital Signs Temp Pulse Resp BP Pulse Ox 97.5 F L 112 H 20 175/91 98 05/11/17 06:13 05/11/17 06:13 05/11/17 06:13 05/11/17 06:13 05/11/17 06:13 - Physical Exam Comments: 05/11/17 06:42 GENERAL: Well developed, well nourished. Awake and alert. No acute distress. HEENT: Normocephalic, atraumatic. PERRLA, EOMI. No conjunctival pallor. Sclera are non- icteric. Moist mucous membranes. Oropharynx is clear. NECK: Supple. Full ROM. No JVD. Carotid pulses 2+ and symmetric, without bruits. No thyromegaly. NCo lymphadenopathy. CARDIOVASCULAR: + Tachycardia, Regular rhythm. No murmurs, rubs, or gallops. Distal pulses are 2 + and symmetric. PULMONARY: + crackles bilaterally in lower lobes No wheezing. ABDOMINAL: Soft. Non-tender. Non-distended. No rebound or guarding. No organomegaly. Normoactive bowel sounds. MUSCULOSKELETAL Normal range of motion at all joints. No bony deformities or tenderness. No CVA tenderness. EXTREMITIES: No cyanosis. No clubbing. No edema. No calf tenderness. SKIN: Warm and dry. Normal capillary refill. No rashes. No jaundice. NEUROLOGICAL: Alert, awake, appropriate. Cranial nerves 2-12 intact. No deficits to light touch and temperature in face, upper extremities and lower extremities. No motor deficits in the in face, upper extremities and lower extremities. Normoreflexic in the upper and lower extremities. Normal speech. Toes are down- going bilaterally. Gait is normal without ataxia. PSYCHIATRIC: Cooperative. Good eye contact. Appropriate mood and affect. <Bernardo Wilson - Last Filed: 05/11/17 06:41> - Vital Signs Last Vital Signs Temp Pulse Resp BP Pulse Ox 97.5 F L 112 H 20 175/91 98 05/11/17 06:13 05/11/17 06:13 05/11/17 06:13 05/11/17 06:13 05/11/17 06:13 <Marycarmen Ramírez - Last Filed: 05/11/17 19:37> ED Treatment Course - LABORATORY CBC & Chemistry Diagram: 05/11/17 06:34 05/11/17 06:34 <Marycarmen Ramírez - Last Filed: 05/11/17 19:37> Medical Decision Making - Medical Decision Making 05/11/17 06:43 Pt comes with tachycardia and HTN. He states that he was in the hospital at [facility] a week or more ago. Pt states that his doctors took him off his lisinopril and then replaced it with metoprolol. He states that his statin is making him feel ill. Pt has been back and forth in our ER 3x in the past 24-48 hrs. He keeps coming in and walking out. Pt is back now after having walked out earlier in the night. Pt is awake and alert. He is afebrile. But he likely feels ill because his heart is not rate controlled and his BP is elevated. I will check labs (LFTs in particular, as patient has a bad reaction to statin and may have elevated LFTs) Pt will be given his beta brooklynn. Pt will be signed out to the day team, who can follow his labs, and reevaluate and speak to his aboriginal education worker coordinator to figure out the medication plan moving forward. <Marycarmen Ramírez - Last Filed: 05/11/17 19:37> *DC/Admit/Observation/Transfer - Attestations Scribe Attestion: 05/11/17 06:42 Documentation prepared by Bernardo Wilson, acting as medical delivery driver for Marycarmen Ramírez MD <Bernardo Wilson - Last Filed: 05/11/17 06:41> <Marycarmen Ramírez - Last Filed: 05/11/17 19:37> Diagnosis at time of Disposition: Left against medical advice, CHF (congestive heart failure) - Discharge Dispostion Disposition: AGAINST MEDICAL ADVICE Condition at time of disposition: Stable - Referrals Referrals: Anmol Casey MD [Primary Care Provider] - Kelvin Campuzano MD [Staff Physician] - - Patient Instructions Printed Discharge Instructions: DI for Heart Failure Additional Instructions: Please follow-up with your aboriginal education worker coordinator and your primary care physician in 2 days. It is very important that you take your medications. Your leaving AGAINST MEDICAL ADVICE. However, if your symptoms are worsening, please return to the emergency department.
[2017-05-11] MEDS ORDERED: METOPROLOL TARTRATE 5 MG/5 ML VIAL IVPUSH ONE (06:36)
[2017-05-11] MEDS ORDERED: METOPROLOL TARTRATE 50 MG TABLET (FP) PO ONE (06:36)
[2017-05-11] MEDS ORDERED: METOPROLOL TARTRATE 5 MG/5 ML VIAL ONE (06:44)
[2017-05-11] MEDS ORDERED: METOPROLOL TARTRATE 50 MG TABLET (FP) ONE (06:45)
[2017-05-11 06:51] LABS: BASOPHIL 0.6 % (0-2.0); EOSINOPHIL 2.4 % (0-4.5); MCH 28.9 pg (25.7-33.7); MEAN CELL VOLUME 87.8 fl (80-96); MEAN PLT VOLUME 10.4 fl (7.5-11.1); NEUTROPHILS 69.5 % (42.8-82.8); PLATELET COUNT 177 K/MM3 (134-434); RDW 13.4 % (11.9-15.9); WHITE BLOOD COUNT 9.1 K/mm3 (4.0-10.0)
[2017-05-11 07:11] LABS: ALBUMIN 4.1 g/dl (3.4-5.0); ANION GAP 11 (8-16); BILIRUBIN,TOTAL 0.9 mg/dL (0.2-1.0); CALCIUM 9.3 mg/dL (8.5-10.1); CO2 27 mmol/L (21-32); CREATININE 1.8 mg/dL (0.7-1.3); GLUCOSE,RANDOM 152 mg/dL (74-106); SGOT/AST 21 U/L (15-37); SGPT/ALT 26 U/L (12-78); TOT PROT 7.8 g/dl (6.4-8.2)
[2017-05-11 07:13] LABS: ALK PHOS 77 U/L (45-117); CPK 132 IU/L (39-308); TROPONIN I 0.36 ng/ml (0.00-0.05)
--- NOTE | 2017-05-11 09:09 | PDOC ---
*Physical Exam - Vital Signs Last Vital Signs Temp Pulse Resp BP Pulse Ox 97.5 F L 95 H 18 135/89 97 05/11/17 06:13 05/11/17 07:22 05/11/17 07:22 05/11/17 07:22 05/11/17 07:22 ED Treatment Course - LABORATORY CBC & Chemistry Diagram: 05/11/17 06:34 05/11/17 06:34 - ADDITIONAL ORDERS Additional order review: Laboratory Results 05/11/17 06:34 Sodium 138 Potassium 4.4 Chloride 100 Carbon Dioxide 27 Anion Gap 11 BUN 47 H D Creatinine 1.8 H Creat Clearance w eGFR 35.87 Random Glucose 152 H D Calcium 9.3 Total Bilirubin 0.9 D AST 21 D ALT 26 Alkaline Phosphatase 77 Creatine Kinase 132 Troponin I 0.36 H D Total Protein 7.8 Albumin 4.1 05/11/17 06:34 RBC 4.61 MCV 87.8 MCHC 33.0 RDW 13.4 MPV 10.4 Neutrophils % 69.5 Lymphocytes % 16.2 D Monocytes % 11.3 H Eosinophils % 2.4 D Basophils % 0.6 - Medications Given in the ED: ED Medications Discontinued Medications Generic Name Dose Route Start Last Admin Trade Name Freq PRN Reason Stop Dose Admin Metoprolol Tartrate 5 mg 05/11/17 06:36 05/11/17 06:42 Lopressor Injection - IVPUSH 05/11/17 06:37 5 mg ONCE ONE Administration Metoprolol Tartrate 50 mg 05/11/17 06:36 05/11/17 06:42 Lopressor - PO 05/11/17 06:37 50 mg ONCE ONE Administration Medical Decision Making - Medical Decision Making 05/11/17 09:05 Sign-out received from outgoing Emergency Physician Dr. Ramírez Pt interviewed and examined Ancillary studies reviewed Case discussed in detail with oncoming Emergency Physician including history, physical exam and ancillary studies. Vital Signs Temp Pulse Resp BP Pulse Ox 97.5 F L 95 H 18 135/89 97 05/11/17 06:13 05/11/17 07:22 05/11/17 07:22 05/11/17 07:22 05/11/17 07:22 Repeat ECG 3:34 am: NSR 94, LBBB, left axis deviation, LVH, QTC 490 msec CBC, BMP 05/11/17 06:34 05/11/17 06:34 CMP Sodium 138 mmol/L (136-145) 05/11/17 06:34 Potassium 4.4 mmol/L (3.5-5.1) 05/11/17 06:34 Chloride 100 mmol/L (98-107) 05/11/17 06:34 Carbon Dioxide 27 mmol/L (21-32) 05/11/17 06:34 Anion Gap 11 (8-16) 05/11/17 06:34 BUN 47 mg/dL (7-18) H D 05/11/17 06:34 Creatinine 1.8 mg/dL (0.7-1.3) H 05/11/17 06:34 Creat Clearance w eGFR 35.87 (>60) 05/11/17 06:34 Random Glucose 152 mg/dL (74-106) H D 05/11/17 06:34 Calcium 9.3 mg/dL (8.5-10.1) 05/11/17 06:34 Total Bilirubin 0.9 mg/dL (0.2-1.0) D 05/11/17 06:34 AST 21 U/L (15-37) D 05/11/17 06:34 ALT 26 U/L (12-78) 05/11/17 06:34 Alkaline Phosphatase 77 U/L (45-117) 05/11/17 06:34 Creatine Kinase 132 IU/L (39-308) 05/11/17 06:34 Troponin I 0.36 ng/ml (0.00-0.05) H D 05/11/17 06:34 B-Natriuretic Peptide 70009.56 pg/ml (5-450) H 05/11/17 06:34 Total Protein 7.8 g/dl (6.4-8.2) 05/11/17 06:34 Albumin 4.1 g/dl (3.4-5.0) 05/11/17 06:34 Chest xray congestive changes. I have spoken with the patient and reports that he has not been able take his medications. I advised the patient that he should be admitted to the hospital given the congestive changes on his chest x-ray. I advised that the patient would benefit from inpatient hospitalization. Troponin is 0.36 but overall downtrending since his SC last week. At that time, patient had refused cardiac catheterization. I had discussed the utmost importance regarding the consequences of not further working up this cardiac issues. However, patient reports that he is not interested in invasive procedures and went to go home. I advised patient that this could lead to worsening psychosis such as or worsening heart failure rate patient reports that he understands. I contacted Dr. Campuzano. The delinquency prevention social worker where the patient will leave AGAINST MEDICAL ADVICE. States that the patient should follow-up with him in 2 days for follow- up. Patient verbalizes understands and will return if symptoms worsen. *DC/Admit/Observation/Transfer Diagnosis at time of Disposition: Left against medical advice CHF (congestive heart failure) Qualifiers: Congestive heart failure type: unspecified congestive heart failure type Congestive heart failure chronicity: unspecified congestive heart failure chronicity Qualified Code(s): I50.9 - Heart failure, unspecified - Discharge Dispostion Disposition: AGAINST MEDICAL ADVICE Condition at time of disposition: Stable Admit: No - Referrals Referrals: Anmol Casey MD [Primary Care Provider] - Kelvin Campuzano MD [Staff Physician] - - Patient Instructions Printed Discharge Instructions: DI for Heart Failure Additional Instructions: Please follow-up with your delinquency prevention social worker and your primary care physician in 2 days. It is very important that you take your medications. Your leaving AGAINST MEDICAL ADVICE. However, if your symptoms are worsening, please return to the emergency department. - Post Discharge Activity
[2017-05-11 09:36] VITALS: BP 139/76; PULSE 92; TEMP 98.1
--- NOTE | 2017-05-12 18:21 | EKG ---
Test Reason : Blood Pressure : / mmHG Vent. Rate : 094 BPM Atrial Rate : 094 BPM P-R Int : 176 ms QRS Dur : 138 ms QT Int : 392 ms P-R-T Axes : 004 -52 146 degrees QTc Int : 490 ms NORMAL SINUS RHYTHM WITH SINUS ARRHYTHMIA LEFT AXIS DEVIATION LEFT BUNDLE BRANCH BLOCK ABNORMAL ECG WHEN COMPARED WITH ECG OF 11-MAY-2017 06:14, PREMATURE VENTRICULAR COMPLEXES ARE NO LONGER PRESENT CORRELATE CLINICALLY Confirmed by RADHA ASIF MD ([id number]) on 05/12/2017 6:21:08 PM Referred By: Confirmed By:RADHA ASIF MD
--- NOTE | 2017-05-12 18:24 | EKG ---
Test Reason : Blood Pressure : / mmHG Vent. Rate : 112 BPM Atrial Rate : 112 BPM P-R Int : 158 ms QRS Dur : 134 ms QT Int : 358 ms P-R-T Axes : 004 -53 108 degrees QTc Int : 488 ms SINUS TACHYCARDIA WITH OCCASIONAL PREMATURE VENTRICULAR COMPLEXES ATRAL ABNORMALITY CLBBB ABNORMAL ECG WHEN COMPARED WITH ECG OF 05-MAY-2017 10:39, PREMATURE SUPRAVENTRICULAR COMPLEXES ARE NO LONGER PRESENT LEFT BUNDLE BRANCH BLOCK IS NO LONGER PRESENT Confirmed by RADHA ASIF MD ([id number]) on 05/12/2017 6:23:50 PM Referred By: Confirmed By:RADHA ASIF MD
== END 2017-05-11 09:30 | disposition left against medical advice (07) ==
LOC: JER 06:00
PROC: 3E033GC Introduction of Other Therapeutic Substance into Peripheral Vein, Percutaneous Approach (ICD-10-PCS; principal; 2017-05-11)
DX: I50.9 Heart failure, unspecified (principal); I25.2 Old myocardial infarction; Z95.1 Presence of aortocoronary bypass graft; I10 Essential (primary) hypertension; E78.00 Pure hypercholesterolemia, unspecified
CPT/HCPCS: 36415; 71010-TC; 80053; 83880; 84484; 85025; 93005; 93010; 96374; 99285-25

== ENCOUNTER 2017-05-12 04:27 | Inpatient (IN) | payer BC, OTHER ==
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
[2017-05-12 06:04] LABS: TROPONIN I 1.21 ng/ml (0.00-0.05)
[2017-05-12] MEDS ORDERED: morphine CARPU-JECT 2 MG/1 ML DISP.SYRIN IVPUSH ONE ×2 (06:24→06:35)
[2017-05-12] MEDS ORDERED: morphine CARPU-JECT 4 MG/1 ML DISP.SYRIN ONE (06:37)
[2017-05-12] MEDS ORDERED: ASPIRIN 81 MG CHEWABLE TABLETS ONE ×2 (06:37→11:19)
[2017-05-12] MEDS: ASPIRIN 81 MG CHEWABLE TABLETS PO SCH ×2 (06:42→11:34)
[2017-05-12] MEDS ORDERED: HEPARIN NA (PORCINE) 5,000 UNITS/ML 1ML VIAL IVPUSH ONE (08:39)
--- NOTE | 2017-05-12 08:52 | PDOC ---
*Physical Exam - Vital Signs Last Vital Signs Temp Pulse Resp BP Pulse Ox 97.9 F 90 18 134/60 97 05/12/17 08:19 05/12/17 08:19 05/12/17 08:19 05/12/17 08:19 05/12/17 08:19 - Physical Exam General Appearance: Yes: Nourished, Appropriately Dressed HEENT: positive: EOMI, SABRINA Neck: positive: Trachea midline, Supple Respiratory/Chest: positive: Lungs Clear, Normal Breath Sounds Cardiovascular: positive: Regular Rhythm, Regular Rate, S1, S2 Vascular Pulses: Dorsalis-Pedis (R): 3+, Doralis-Pedis (L): 3+ Gastrointestinal/Abdominal: positive: Normal Bowel Sounds, Soft Musculoskeletal: positive: Normal Inspection Integumentary: positive: Normal Color, Warm ED Treatment Course - LABORATORY CBC & Chemistry Diagram: 05/12/17 08:50 05/12/17 08:50 - ADDITIONAL ORDERS Additional order review: Laboratory Results 05/12/17 05/12/17 04:57 04:57 Creatine Kinase 168 Creatine Kinase Index 4.6 CK-MB (CK-2) 7.841 H Troponin I 1.21 H* D B-Natriuretic Peptide 13160.28 H - Medications Given in the ED: ED Medications Discontinued Medications Generic Name Dose Route Start Last Admin Trade Name Isidoro PRN Reason Stop Dose Admin Morphine Sulfate 2 mg 05/12/17 06:24 05/12/17 06:42 Morphine Injection - IVPUSH 05/12/17 06:25 Not Given ONCE ONE Morphine Sulfate 1 mg 05/12/17 06:35 05/12/17 06:41 Morphine Injection - IVPUSH 05/12/17 06:36 1 mg ONCE ONE Administration Medical Decision Making - Medical Decision Making 05/12/17 08:51 @[id number] Hernandez, requests repeat EKG and ICU admission given patient's h/o possible syncopal episode, may be secondary to new cardiac pathology including heart block *DC/Admit/Observation/Transfer Diagnosis at time of Disposition: Elevated troponin - Discharge Dispostion Condition at time of disposition: Guarded Admit: Yes - Attestations Physician Attestion: 05/12/17 10:43 I, Dr. Sujey Smith, attest that this document has been prepared under my direction and personally reviewed by me in its entirety. I further attest, that it accurately reflects all work, treatment, procedures and medical decision -making performed by me.
[2017-05-12 09:02] LABS: BASOPHIL 0.9 % (0-2.0); EOSINOPHIL 2.1 % (0-4.5); MCH 29.2 pg (25.7-33.7); MCHC 33.3 g/dl (32.0-35.9); MEAN CELL VOLUME 87.6 fl (80-96); MEAN PLT VOLUME 9.9 fl (7.5-11.1); NEUTROPHILS 72.4 % (42.8-82.8); PLATELET COUNT 149 K/MM3 (134-434); RDW 13.3 % (11.9-15.9); WHITE BLOOD COUNT 8.7 K/mm3 (4.0-10.0)
[2017-05-12 09:14] LABS: INR 1.26 (0.82-1.09); PROTHROMBIN TIME (PATIENT) 13.9 SEC (9.98-11.88)
[2017-05-12 09:17] LABS: ACTIVATED PTT 29.7 SECONDS (26.9-34.4)
[2017-05-12 09:20] LABS: ALBUMIN 3.7 g/dl (3.4-5.0); ANION GAP 6 (8-16); CALCIUM 8.7 mg/dL (8.5-10.1); CO2 29 mmol/L (21-32); GLUCOSE,RANDOM 163 mg/dL (74-106); SGOT/AST 25 U/L (15-37); SGPT/ALT 24 U/L (12-78); TOT PROT 7.3 g/dl (6.4-8.2)
[2017-05-12] MEDS ORDERED: HEPARIN INFUSION - 500 ML IVPB ONE (09:22)
[2017-05-12] MEDS ORDERED: HEPARIN NA (PORCINE) 5,000 UNITS/ML 1ML VIAL ONE (09:22)
[2017-05-12] MEDS: HEPARIN - 25,000 UNIT in SODIUM CHLORIDE 495 ML IV SCH ×2 (09:31→17:05)
[2017-05-12 09:34] LABS: ALK PHOS 73 U/L (45-117); CPK 146 IU/L (39-308)
[2017-05-12 09:40] LABS: TROPONIN I 0.91 ng/ml (0.00-0.05)
[2017-05-12] MEDS ORDERED: ASPIRIN 81 MG CHEWABLE TABLETS PO SCH (10:00)
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
--- NOTE | 2017-05-12 17:11 | EKG ---
Test Reason : Blood Pressure : / mmHG Vent. Rate : 099 BPM Atrial Rate : 099 BPM P-R Int : 156 ms QRS Dur : 134 ms QT Int : 374 ms P-R-T Axes : 052 -54 126 degrees QTc Int : 479 ms SINUS RHYTHM WITH OCCASIONAL PREMATURE VENTRICULAR COMPLEXES POSSIBLE LEFT ATRIAL ENLARGEMENT CLBBB ABNORMAL ECG WHEN COMPARED WITH ECG OF 11-MAY-2017 08:34, PREMATURE VENTRICULAR COMPLEXES ARE NOW PRESENT F/U TRACING INDICATED Confirmed by RADHA ASIF MD ([id number]) on 05/12/2017 5:11:46 PM Referred By: Confirmed By:RADHA ASIF MD
[2017-05-12] MEDS: ATORVASTATIN CA 20 MG TABLET (FP) PO SCH (21:16)
[2017-05-12] MEDS ORDERED: METOPROLOL TARTRATE 25 MG TABLET (FP) PO SCH (22:00)
[2017-05-13] MEDS ORDERED: LORazepam 1 MG TABLET PO ONE (00:30)
--- NOTE | 2017-05-13 11:12 | PN ---
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 AGREE WITH TELE MONITORING CARDIAC FOLLOW/ ORTHOSTATIC BP MONITORING HOLTOR MONITOR AGREE WITH EPS/CATH(PATIENT REFUSES) MONITOR LYTE/KIDNEY FUNCTION SERIAL EKG/CYCLE TROPS AGAIN WILL CHANGE METOPROLOL TO COREG D/C HEPARIN DRIP CHANGE ASA TO 81 MG R CUBA SALAS Problem List - Problems (1) Elevated troponin Code(s): R74.8 - ABNORMAL LEVELS OF OTHER SERUM ENZYMES (2) Non-ST elevated myocardial infarction Code(s): I21.4 - NON-ST ELEVATION (NSTEMI) MYOCARDIAL INFARCTION (3) CAD (coronary artery disease) Code(s): I25.10 - ATHSCL HEART DISEASE OF [place] CORONARY ARTERY W/O ANG PCTRS (4) Chronic kidney disease (CKD) stage G3a/A2, moderately decreased glomerular filtration rate (GFR) between 45-59 mL/min/1.73 square meter and albuminuria creatinine ratio between 30-299 mg/g Code(s): N18.3 - CHRONIC KIDNEY DISEASE, STAGE 3 (MODERATE) (5) Hypertension Code(s): I10 - ESSENTIAL (PRIMARY) HYPERTENSION (6) Renal insufficiency Code(s): N28.9 - DISORDER OF KIDNEY AND URETER, UNSPECIFIED
[2017-05-13] MEDS: FUROSEMIDE 40 MG TABLET (FP) PO SCH (11:28)
[2017-05-13] MEDS: CLOPIDOGREL BISULFATE 75 MG TABLET (FP) PO SCH (11:28)
[2017-05-13] MEDS: SPIRONOLACTONE 25 MG TABLET (FP) PO SCH (11:28)
[2017-05-13] MEDS: ASPIRIN COATED 81 MG TABLET.EC PO SCH (11:29)
--- NOTE | 2017-05-13 14:57 | CON.ENT ---
Consult Consult Specialty:: ENT Reason for Consultation:: ear drainage - History of Present Illness Chief Complaint: ear evaluation History of Present Illness: 87M with history of bilateral canal wall down mastoidectomies who is a patient of my colleague's, Dr. Perez, admitted for syncope and possible ACS after multiple readmissions. He gets his ears cleaned periodically by Dr. Perez and wears a hearing aid. He has a chronic history of intermittent drainage from the ear (though I'm not clear if this is subjectively or objectively identified), discomfort, and dizziness. Chronic bilateral tinnitus. 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 Cardio/Vascular: Yes: CAD, CHF, HTN, Hyperlipdemia Pulmonary: Yes: COPD Renal/: Yes: Renal Inusuff - Past Surgical History Past Surgical History: Yes: CABG - Alcohol/Substance Use Hx Alcohol Use: Yes (Occasional) - Smoking History Smoking history: Former smoker Have you smoked in the past 12 months: No Aproximately how many cigarettes per day: 0 If you are a former smoker, when did you quit?: 1960 Home Medications - Allergies Allergies/Adverse Reactions: Allergies Allergy/AdvReac Type Severity Reaction Status Date / Time amoxicillin trihydrate Allergy Verified 05/12/17 04:45 [From Augmentin] potassium clavulanate Allergy Verified 05/12/17 04:45 [From Augmentin] - Home Medications Home Medications: Ambulatory Orders Aspirin [ASA -] 81 mg PO DAILY #30 tab.chew 05/08/17 Atorvastatin Ca [Lipitor] 20 mg PO HS #30 tablet 05/08/17 Metoprolol Tartrate 37.5 mg PO BID #30 tablet 05/08/17 Spironolactone [Aldactone] 12.5 mg PO DAILY #30 tablet 05/08/17 Clopidogrel Bisulfate [Plavix -] 75 mg PO AM 05/10/17 Furosemide [Lasix] 40 mg PO AM 05/10/17 Physical Exam-ENT Vital Signs: Vital Signs Temperature 98.3 F 05/13/17 09:00 Pulse Rate 100 H 05/13/17 09:00 Respiratory Rate 20 05/13/17 09:00 Blood Pressure 140/85 05/13/17 09:00 O2 Sat by Pulse Oximetry (%) 98 05/13/17 09:00 Constitutional: Yes: Well Nourished, No Distress Head: Yes: WNL Face: Yes: WNL Eyes: Yes: WNL Nose: Yes: WNL Oral/Pharynx: Yes: WNL, Other (partial dentition, post o/p clear) Outer Ear: Yes: WNL, Other (R hearing aid in place) Ear Canal: Yes: Other (bilateral mastoid bowls with borate powder. Left TM frankly perforated, though dry, with some flaky debris. R TM retracted, with no moisture or bere infection.) Neck: Yes: WNL Neurological: Yes: Other (CN3-7,11,12 intact, symmetrical) Imaging - Results Cat Scan: Image Reviewed (CT head reviewed c/w bilateral mastoid bowls and no overt infection) Other: Other (Left Mastoid Bowl Cleaning - Removed cerumen debris from bowl. No granulation tissue or active infection. +TM perforation, without otorrhea.) Problem List - Problems (1) Chronic mastoiditis, bilateral Assessment/Plan: Chronic with history of bilateral canal wall down mastoidectomies. -Ofloxacin drops to the left ear given report of drainage and his TM perforation - do this for one week only -No bere active infection otherwise noted -Suspect his dizziness related to whatever is causing his syncopal events. 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 -Patient advised to follow up with Dr. Perez for routine otoscopic examination (or me if unavailable) once discharged in the next few weeks, or sooner as needed. Thank you for this consultation. Please call with questions. Code(s): H70.13 - CHRONIC MASTOIDITIS, BILATERAL
[2017-05-13] MEDS: LORazepam 0.5 MG TABLET PO PRN (18:23)
[2017-05-13] MEDS: ATORVASTATIN CA 20 MG TABLET (FP) PO SCH (22:13)
[2017-05-13] MEDS: CARVEDILOL 3.125 MG TABLET (FP) PO SCH (22:13)
[2017-05-13] MEDS: OFLOXACIN 0.3% OTIC SOLUTION 5 ML BOTTLE AS SCH (23:30)
[2017-05-14] MEDS: SPIRONOLACTONE 25 MG TABLET (FP) PO SCH (09:51)
[2017-05-14] MEDS: FUROSEMIDE 40 MG TABLET (FP) PO SCH (09:53)
[2017-05-14] MEDS: ASPIRIN COATED 81 MG TABLET.EC PO SCH (09:54)
[2017-05-14] MEDS: CARVEDILOL 3.125 MG TABLET (FP) PO SCH ×2 (09:54→21:28)
[2017-05-14] MEDS: CLOPIDOGREL BISULFATE 75 MG TABLET (FP) PO SCH (09:55)
[2017-05-14] MEDS: OFLOXACIN 0.3% OTIC SOLUTION 5 ML BOTTLE AS SCH ×2 (09:56→21:28)
[2017-05-14] MEDS ORDERED: FUROSEMIDE 40 MG/4 ML INJECTABLE VIAL IVPUSH ONE ×2 (10:15→12:45)
--- NOTE | 2017-05-14 10:34 | PN ---
Progress Note, Physician History of Present Illness: progress alert,oob-chair,-cp,-sob - Current Medication List Current Medications: Active Medications Aspirin (Ecotrin -) 81 mg PO DAILY [facility] Last Admin: 05/14/17 09:54 Dose: 81 mg Atorvastatin Calcium (Lipitor -) 20 mg PO HS [facility] Last Admin: 05/13/17 22:13 Dose: 20 mg Carvedilol (Coreg -) 3.125 mg PO BID [facility] Last Admin: 05/14/17 09:54 Dose: 3.125 mg Clopidogrel Bisulfate (Plavix -) 75 mg PO DAILY [facility] Last Admin: 05/14/17 09:55 Dose: 75 mg Furosemide (Lasix -) 40 mg PO DAILY [facility] Last Admin: 05/14/17 09:53 Dose: 40 mg Isosorbide Mononitrate (Imdur -) 30 mg PO DAILY [facility] Lorazepam (Ativan -) 0.5 mg PO TID PRN PRN Reason: ANXIETY Last Admin: 05/13/17 18:23 Dose: 0.5 mg Ofloxacin (Floxin Otic (Ear) Solution -) 5 drop BID [facility] Stop: 05/20/17 10:01 Last Admin: 05/14/17 09:56 Dose: 5 drop Spironolactone (Aldactone -) 12.5 mg PO DAILY [facility] Last Admin: 05/14/17 09:51 Dose: 12.5 mg - Objective Vital Signs: Vital Signs Temperature 97.7 F 05/14/17 09:00 Pulse Rate 105 H 05/14/17 09:00 Respiratory Rate 20 05/14/17 09:00 Blood Pressure 137/68 05/14/17 09:00 O2 Sat by Pulse Oximetry (%) 97 05/13/17 21:00 Constitutional: Yes: Well Nourished, Calm Eyes: Yes: WNL HENT: Yes: WNL Neck: Yes: WNL Cardiovascular: Yes: Regular Rate and Rhythm, S1, S2 Respiratory: Yes: Rales (bilateral rales 1/3 up) Gastrointestinal: Yes: Normal Bowel Sounds, Soft Extremities: Yes: WNL Edema: Yes Labs: INR, PTT INR 1.26 (0.82-1.09) H 05/12/17 08:50 Assessment/Plan [facility] UNDER INVESTIGATION R/O CARDIAC RHYTM DISTURBANCE NSTEMI/DEMAND ISCHEMIA CHF TELE MONITORING ?CARDIAC CATH ORTHOSTATIC BP MONITORING HOLTER MONITOR AGREE WITH EPS/CATH(PATIENT REFUSES) MONITOR LYTES/KIDNEY FUNCTION SERIAL EKG/CYCLE TROPS AGAIN ASA RENAL EVALUATION DR ANGELA Problem List - Problems (1) Elevated troponin Code(s): R74.8 - ABNORMAL LEVELS OF OTHER SERUM ENZYMES (2) Non-ST elevated myocardial infarction Code(s): I21.4 - NON-ST ELEVATION (NSTEMI) MYOCARDIAL INFARCTION (3) CAD (coronary artery disease) Code(s): I25.10 - ATHSCL HEART DISEASE OF [place] CORONARY ARTERY W/O ANG PCTRS (4) Chronic kidney disease (CKD) stage G3a/A2, moderately decreased glomerular filtration rate (GFR) between 45-59 mL/min/1.73 square meter and albuminuria creatinine ratio between 30-299 mg/g Code(s): N18.3 - CHRONIC KIDNEY DISEASE, STAGE 3 (MODERATE) (5) Hypertension Code(s): I10 - ESSENTIAL (PRIMARY) HYPERTENSION (6) Renal insufficiency Code(s): N28.9 - DISORDER OF KIDNEY AND URETER, UNSPECIFIED
[2017-05-14 11:55] LABS: ANION GAP 9 (8-16); CALCIUM 8.6 mg/dL (8.5-10.1); CO2 27 mmol/L (21-32); CREATININE 1.8 mg/dL (0.7-1.3); GLUCOSE,RANDOM 99 mg/dL (74-106)
[2017-05-14 12:18] VITALS: BMI 28.5
--- NOTE | 2017-05-14 12:18 | CON.NEP ---
Consult Consult Specialty:: Nephrology Referred by:: Dr. Knowles Reason for Consultation:: CKD, Contrast Nephropathy Prophyaxis - History of Present Illness Chief Complaint: Syncope History of Present Illness: 87 year old Gentleman with PMhx of CAD s/p CABG, recent NSTEMi, CHF (LV dysfunction), Hypertension, COPD, CKD (baseline Cr 1.6-2) presented s/p LOC/ Syncope while driving with Cr of 2 on presentation. Pt denies any chest pain or palpitations at this time. Pt was discharged on Lasix and aldactone. Reports no signifiant improvement in LE swelling. No flank pain, hematuria, NSAID use. Pt had deferred Cardiac Cath last admission. - History Source History Provided By: Patient Limitations to Obtaining History: No Limitations - Past Medical History MEDICAL REVIEW COORDINATOR: Yes: Vertigo Cardio/Vascular: Yes: CAD, CHF, HTN, Hyperlipdemia Pulmonary: Yes: COPD Renal/: Yes: Renal Inusuff - Past Surgical History Past Surgical History: Yes: CABG - Alcohol/Substance Use Hx Alcohol Use: Yes (Occasional) - Smoking History Smoking history: Former smoker Have you smoked in the past 12 months: No Aproximately how many cigarettes per day: 0 If you are a former smoker, when did you quit?: 1960 Home Medications - Allergies Allergies/Adverse Reactions: Allergies Allergy/AdvReac Type Severity Reaction Status Date / Time amoxicillin trihydrate Allergy Verified 05/12/17 04:45 [From Augmentin] potassium clavulanate Allergy Verified 05/12/17 04:45 [From Augmentin] - Home Medications Home Medications: Ambulatory Orders Aspirin [ASA -] 81 mg PO DAILY #30 tab.chew 05/08/17 Atorvastatin Ca [Lipitor] 20 mg PO HS #30 tablet 05/08/17 Metoprolol Tartrate 37.5 mg PO BID #30 tablet 05/08/17 Spironolactone [Aldactone] 12.5 mg PO DAILY #30 tablet 05/08/17 Clopidogrel Bisulfate [Plavix -] 75 mg PO AM 05/10/17 Furosemide [Lasix] 40 mg PO AM 05/10/17 Review of Systems - Review of Systems Constitutional: reports: No Symptoms Eyes: reports: No Symptoms HENT: reports: No Symptoms Neck: reports: No Symptoms Cardiovascular: reports: No Symptoms Respiratory: reports: No Symptoms Gastrointestinal: reports: No Symptoms Genitourinary: reports: No Symptoms Musculoskeletal: reports: No Symptoms Neurological: reports: No Symptoms Nephrology Consult - Height Height: 5 ft 7 in - Weight Weight: 182 lb 3 oz - BMI Body Mass Index (BMI): 28.5 - Lab Results CBC,BMP: CBC, BMP 05/14/17 11:25 Anion Gap: Anion Gap Anion Gap 9 (8-16) 05/14/17 11:25 - Imaging Chest X-ray: Report Reviewed - Physical Examination Vital Signs: Vital Signs Temperature 97.7 F 05/14/17 09:00 Pulse Rate 105 H 05/14/17 09:00 Respiratory Rate 20 05/14/17 09:00 Blood Pressure 137/68 05/14/17 09:00 O2 Sat by Pulse Oximetry (%) 97 05/13/17 21:00 Constitutional: Yes: Well Nourished, No Distress Eyes: Yes: Conjunctiva Clear HENT: Yes: Atraumatic, Normocephalic Neck: Yes: Supple Cardiovascular: Yes: Regular Rate and Rhythm, S1, S2. No: Murmur, Rub Respiratory: Yes: Regular, Rales, Rhonchi. No: On Nasal O2, SOB Gastrointestinal: Yes: Normal Bowel Sounds, Soft Renal/: No: Bladder Distention, CVA Tenderness - Left, CVA Tenderness - Right Extremities: No: Cold, Cool, Cyanosis Edema: No Peripheral Pulses WNL: Yes Problem List - Problems (1) CAD (coronary artery disease) Code(s): I25.10 - ATHSCL HEART DISEASE OF [place] CORONARY ARTERY W/O ANG PCTRS (2) Chronic kidney disease (CKD) stage G3a/A2, moderately decreased glomerular filtration rate (GFR) between 45-59 mL/min/1.73 square meter and albuminuria creatinine ratio between 30-299 mg/g Code(s): N18.3 - CHRONIC KIDNEY DISEASE, STAGE 3 (MODERATE) (3) Hypertension Code(s): I10 - ESSENTIAL (PRIMARY) HYPERTENSION (4) Renal insufficiency Code(s): N28.9 - DISORDER OF KIDNEY AND URETER, UNSPECIFIED (5) CHF (congestive heart failure) Code(s): I50.9 - HEART FAILURE, UNSPECIFIED Qualifiers: Congestive heart failure type: unspecified congestive heart failure type Congestive heart failure chronicity: unspecified congestive heart failure chronicity Qualified Code(s): I50.9 - Heart failure, unspecified (6) Cardiac related syncope Code(s): R55 - SYNCOPE AND COLLAPSE Assessment/Plan 87 year old Gentleman with PMhx of CAD s/p CABG, recent NSTEMi, CHF (LV dysfunction), Hypertension, COPD, CKD (baseline Cr 1.6-2) presented s/p LOC/ Syncope while driving with Cr of 2 on presentation. #CKD Stage 3 #Syncope/LOC #CAD s/p NSTEMI #Contrast neprhpathy prophyaxis Renal function remains around baseline on Lasix PO, consider increaseing to BID dose Pt is at risk for CINTHIA (risk of injury (>50% rise in Cr) is 26% and risk of need for dialysis is 1.1%) These risks were discussed with the patient Can consider pre-cath prophylaxis (i.e. Mucomyst), no IVF given CHF Full consult to follow Lobo Shrestha DO
[2017-05-14] MEDS: ISOSORBIDE MONONITRATE 30 MG TAB.SR.24H (FP) PO SCH (12:43)
--- NOTE | 2017-05-14 18:29 | PN ---
Progress Note (short form) - Note Progress Note: S: 87 year old male admitted with H/Otransient LOC while driving,known case of CAD.S/p CABG,recent NSTEMI complicated by acute LV failure,has severe LV systolic dysfunction,CKD.Has refused any intervention and stopped taking all his medications AMA and found to be in acute LV failure on readmission. Spoke to his daughter today and has been made aware of his clinical status.He he changes his mind then will try and send him to [facility] for further evaluation. Active Medications Generic Name Dose Route Start Last Admin Trade Name Freq PRN Reason Stop Dose Admin Aspirin 81 mg 05/13/17 10:00 05/14/17 09:54 Ecotrin - PO 81 mg DAILY JEREMÍAS Administration Atorvastatin Calcium 20 mg 05/12/17 22:00 05/13/17 22:13 Lipitor - PO 20 mg HS JEREMÍAS Administration Carvedilol 3.125 mg 05/13/17 22:00 05/14/17 09:54 Coreg - PO 3.125 mg BID JEREMÍAS Administration Clopidogrel Bisulfate 75 mg 05/13/17 10:00 05/14/17 09:55 Plavix - PO 75 mg DAILY JEREMÍAS Administration Furosemide 40 mg 05/13/17 10:00 05/14/17 09:53 Lasix - PO 40 mg DAILY JEREMÍAS Administration Isosorbide Mononitrate 30 mg 05/14/17 10:15 05/14/17 12:43 Imdur - PO 30 mg DAILY JEREMÍAS Administration Lorazepam 0.5 mg 05/13/17 11:15 05/13/17 18:23 Ativan - PO 0.5 mg TID PRN Administration ANXIETY Ofloxacin 5 drop 05/13/17 22:00 05/14/17 09:56 Floxin Otic (Ear) Solution - 05/20/17 10:01 5 drop BID JEREMÍAS Administration Spironolactone 12.5 mg 05/13/17 10:00 05/14/17 09:51 Aldactone - PO 12.5 mg DAILY JEREMÍAS Administration O:87 year male in mildly dyspneic,no pallor,cynosis or jaundice Vital Signs Period Temp Pulse Resp BP Sys/العلي Pulse Ox Last 24 Hr 97.7 F-98.6 F 99-106 20-20 101-137/47-88 97-97 NECK: Supple,+HJR, pulsatile neck veins.Carotids 2+,no bruits. HEART:PMI in the5th ICS,S1&S2 are normal, holosystolic murmurgrade II/ LSB and apex,S4 gallop at the apex. LUNGS:Eine creps at both bases. ABDOMEN:Soft, nontender,no hepatosplenomegaly. EXTREMIES: Nocalf tenderness,,1+ bilateral pretibial edema. Laboratory Results - last 24 hr 05/14/17 05/14/17 05:43 11:25 PTT (Actin FS) 30.1 Sodium 136 Potassium 4.0 Chloride 100 Carbon Dioxide 27 Anion Gap 9 BUN 40 H Creatinine 1.8 H Random Glucose 99 D Calcium 8.6 A: 1. CAD s/p CABG,recent NSTEMI,recurrence of angina pectoris. 2. LV failure . 3. Severe LV systolic dysfunction 4. CKD. 5. Tricuspid regurgitation. 6. Mitral regurgitation 7. Poor compliance. 8. Recent suddenLOC. Recommendations: 1. If agreeable transfer to [facility] for cath and EP 2. Increase dose of Coreg to tolerance. 3. F/U BMP. Prognosis: critical.
[2017-05-14] MEDS: LORazepam 0.5 MG TABLET PO PRN (21:28)
[2017-05-14] MEDS: ATORVASTATIN CA 20 MG TABLET (FP) PO SCH (21:28)
[2017-05-15] MEDS: LORazepam 0.5 MG TABLET PO PRN (06:16)
[2017-05-15] MEDS: ISOSORBIDE MONONITRATE 30 MG TAB.SR.24H (FP) PO SCH (10:12)
[2017-05-15] MEDS: FUROSEMIDE 40 MG TABLET (FP) PO SCH (10:12)
[2017-05-15] MEDS: SPIRONOLACTONE 25 MG TABLET (FP) PO SCH (10:12)
[2017-05-15] MEDS: CARVEDILOL 3.125 MG TABLET (FP) PO SCH (10:12)
[2017-05-15] MEDS: ASPIRIN COATED 81 MG TABLET.EC PO SCH (10:12)
[2017-05-15] MEDS: CLOPIDOGREL BISULFATE 75 MG TABLET (FP) PO SCH ×2 (10:13→10:16)
--- NOTE | 2017-05-15 11:47 | PN ---
Progress Note (short form) - Note Progress Note: Renal Follow up for CKD/Contrast nephropathy prophylaxis Pt seen and examined at the bedside no acute complaints no sob, chest pain, abd pian, N/V/D pt and family now agreeable to go for cardiac cath Vital Signs Temperature 97 F L 05/15/17 05:45 Pulse Rate 87 05/15/17 05:45 Respiratory Rate 20 05/15/17 05:45 Blood Pressure 139/74 05/15/17 05:45 O2 Sat by Pulse Oximetry (%) 97 05/14/17 21:00 Gen: NAD, awake and alert CVS: RRR, No M Lungs: CTA Abd: soft NT Ext: 1+ edema CBC, BMP 05/12/17 08:50 05/14/17 11:25 Current Medications Aspirin (Ecotrin -) 81 mg PO DAILY [facility] Last Admin: 05/15/17 10:12 Dose: 81 mg Atorvastatin Calcium (Lipitor -) 20 mg PO HS [facility] Last Admin: 05/14/17 21:28 Dose: 20 mg Carvedilol (Coreg -) 3.125 mg PO BID [facility] Last Admin: 05/15/17 10:12 Dose: 3.125 mg Clopidogrel Bisulfate (Plavix -) 75 mg PO DAILY [facility] Last Admin: 05/15/17 10:16 Dose: Not Given Furosemide (Lasix -) 40 mg PO DAILY [facility] Last Admin: 05/15/17 10:12 Dose: 40 mg Isosorbide Mononitrate (Imdur -) 30 mg PO DAILY [facility] Last Admin: 05/15/17 10:12 Dose: 30 mg Lorazepam (Ativan -) 0.5 mg PO TID PRN PRN Reason: ANXIETY Last Admin: 05/15/17 06:16 Dose: 0.5 mg Ofloxacin (Floxin Otic (Ear) Solution -) 5 drop BID [facility] Stop: 05/20/17 10:01 Last Admin: 05/14/17 21:28 Dose: 5 drop Spironolactone (Aldactone -) 12.5 mg PO DAILY [facility] Last Admin: 05/15/17 10:12 Dose: 12.5 mg A/P 87 year old Gentleman with PMhx of CAD s/p CABG, recent NSTEMi, CHF (LV dysfunction), Hypertension, COPD, CKD (baseline Cr 1.6-2) presented s/p LOC/ Syncope while driving with Cr of 2 on presentation. #CKD Stage 3 #Syncope/LOC #CAD s/p NSTEMI #Contrast neprhpathy prophyaxis Renal function stable at this time CINTHIA risk explained to the patient and his family and they expressed understanding and a willingness to get the Cardiac cath done would recommend holding lasix the day of contrast exposure of clinical status will allow to minimize volume contraction Trend BUN/Cr post contrast exposure recommend Mucomyst 1200 BID starting the day before the cardiac cath for CINTHIA prophylaxis Lobo Shrestha DO Problem List - Problems (1) CAD (coronary artery disease) Code(s): I25.10 - ATHSCL HEART DISEASE OF [place] CORONARY ARTERY W/O ANG PCTRS (2) Chronic kidney disease (CKD) stage G3a/A2, moderately decreased glomerular filtration rate (GFR) between 45-59 mL/min/1.73 square meter and albuminuria creatinine ratio between 30-299 mg/g Code(s): N18.3 - CHRONIC KIDNEY DISEASE, STAGE 3 (MODERATE) (3) Hypertension Code(s): I10 - ESSENTIAL (PRIMARY) HYPERTENSION (4) Renal insufficiency Code(s): N28.9 - DISORDER OF KIDNEY AND URETER, UNSPECIFIED (5) CHF (congestive heart failure) Code(s): I50.9 - HEART FAILURE, UNSPECIFIED Qualifiers: Congestive heart failure type: unspecified congestive heart failure type Congestive heart failure chronicity: unspecified congestive heart failure chronicity Qualified Code(s): I50.9 - Heart failure, unspecified (6) Cardiac related syncope Code(s): R55 - SYNCOPE AND COLLAPSE
--- NOTE | 2017-05-15 11:48 | PN ---
Progress Note, Physician History of Present Illness: PULMONARY ALERT,OOB-CHAIR,-SOB,-CP - Current Medication List Current Medications: Active Medications Aspirin (Ecotrin -) 81 mg PO DAILY [facility] Last Admin: 05/15/17 10:12 Dose: 81 mg Atorvastatin Calcium (Lipitor -) 20 mg PO HS [facility] Last Admin: 05/14/17 21:28 Dose: 20 mg Carvedilol (Coreg -) 3.125 mg PO BID [facility] Last Admin: 05/15/17 10:12 Dose: 3.125 mg Clopidogrel Bisulfate (Plavix -) 75 mg PO DAILY [facility] Last Admin: 05/15/17 10:16 Dose: Not Given Furosemide (Lasix -) 40 mg PO DAILY [facility] Last Admin: 05/15/17 10:12 Dose: 40 mg Isosorbide Mononitrate (Imdur -) 30 mg PO DAILY [facility] Last Admin: 05/15/17 10:12 Dose: 30 mg Lorazepam (Ativan -) 0.5 mg PO TID PRN PRN Reason: ANXIETY Last Admin: 05/15/17 06:16 Dose: 0.5 mg Ofloxacin (Floxin Otic (Ear) Solution -) 5 drop BID [facility] Stop: 05/20/17 10:01 Last Admin: 05/14/17 21:28 Dose: 5 drop Spironolactone (Aldactone -) 12.5 mg PO DAILY [facility] Last Admin: 05/15/17 10:12 Dose: 12.5 mg - Objective Vital Signs: Vital Signs Temperature 97 F L 05/15/17 05:45 Pulse Rate 87 05/15/17 05:45 Respiratory Rate 20 05/15/17 05:45 Blood Pressure 139/74 05/15/17 05:45 O2 Sat by Pulse Oximetry (%) 97 05/14/17 21:00 Constitutional: Yes: Well Nourished, Calm Eyes: Yes: WNL HENT: Yes: WNL Neck: Yes: Supple Cardiovascular: Yes: Regular Rate and Rhythm, S1, S2 Respiratory: Yes: Rales (BILATERAL RALES 1/2 UP) Gastrointestinal: Yes: Normal Bowel Sounds, Soft Extremities: Yes: WNL Edema: Yes Labs: CBC, BMP 05/14/17 11:25 INR, PTT INR 1.26 (0.82-1.09) H 05/12/17 08:50 Assessment/Plan [facility] UNDER INVESTIGATION R/O CARDIAC RHYTM DISTURBANCE NSTEMI/DEMAND ISCHEMIA CHF ACUTE ON CHRONIC KIDNEY DISEASE FOR CARDIAC CATH AT [facility] MONITOR LYTES/KIDNEY FUNCTION ASA DR ANGELA Problem List - Problems (1) Elevated troponin Code(s): R74.8 - ABNORMAL LEVELS OF OTHER SERUM ENZYMES (2) Non-ST elevated myocardial infarction Code(s): I21.4 - NON-ST ELEVATION (NSTEMI) MYOCARDIAL INFARCTION (3) CAD (coronary artery disease) Code(s): I25.10 - ATHSCL HEART DISEASE OF [place] CORONARY ARTERY W/O ANG PCTRS (4) Chronic kidney disease (CKD) stage G3a/A2, moderately decreased glomerular filtration rate (GFR) between 45-59 mL/min/1.73 square meter and albuminuria creatinine ratio between 30-299 mg/g Code(s): N18.3 - CHRONIC KIDNEY DISEASE, STAGE 3 (MODERATE) (5) Hypertension Code(s): I10 - ESSENTIAL (PRIMARY) HYPERTENSION (6) Renal insufficiency Code(s): N28.9 - DISORDER OF KIDNEY AND URETER, UNSPECIFIED
--- NOTE | 2017-05-15 12:07 | PN ---
Progress Note (short form) - Note Progress Note: S: 87 year old male admitted with history of transient LOC while driving,known case of CAD.S/p CABG,recent NSTEMI complicated by acute LV failure,has severe LV systolic dysfunction,CKD, hypercholesterolemia,CLBBB.Had refused any intervention, prior to present admission, he had stopped taking all his medications.He was found to be in acute LV failure. Clinically, patient has both mitral and tricuspid regurgitation. History of COPD. Early this morning, he had an episode of wide complex tachycardia, consisting of 19 beats in a row at a rate of 160 BPM. Presently, he denies chest pain or discomfort, no dyspnea has been reported. The patient has chronic dizziness, apparently related to chronic otitis. Spoke to the daughter, his niece, and the patient and he is agreeable for transfer. He and the family fully understand the indications for cardiac catheterization and possible EP. Also, is aware of the potential risks related to the procedures especially in the presence of underlying renal insufficiency. Active Medications Generic Name Dose Route Start Last Admin Trade Name Freq PRN Reason Stop Dose Admin Aspirin 81 mg 05/13/17 10:05/15/17 10:12 Ecotrin - PO 81 mg DAILY JEREMÍAS Administration Atorvastatin Calcium 20 mg 05/12/17 22:00 05/14/17 21:28 Lipitor - PO 20 mg HS JEREMÍAS Administration Carvedilol 3.125 mg 05/13/17 22:00 05/15/17 10:12 Coreg - PO 3.125 mg BID JEREMÍAS Administration Clopidogrel Bisulfate 75 mg 05/13/17 10:05/15/17 10:16 Plavix - PO Not Given DAILY JEREMÍAS Furosemide 40 mg 05/13/17 10:05/15/17 10:12 Lasix - PO 40 mg DAILY JEREMÍAS Administration Isosorbide Mononitrate 30 mg 05/14/17 10:15 05/15/17 10:12 Imdur - PO 30 mg DAILY JEREMÍAS Administration Lorazepam 0.5 mg 05/13/17 11:15 05/15/17 06:16 Ativan - PO 0.5 mg TID PRN Administration ANXIETY Ofloxacin 5 drop 05/13/17 22:00 05/14/17 21:28 Floxin Otic (Ear) Solution - 05/20/17 10:01 5 drop BID JEREMÍAS Administration Spironolactone 12.5 mg 05/13/17 10:00 05/15/17 10:12 Aldactone - PO 12.5 mg DAILY JEREMÍAS Administration O:87 year male in mildly dyspneic,no pallor,cynosis or jaundice Last Vital Signs Temp Pulse Resp BP Pulse Ox 97 F L 87 20 139/74 97 05/15/17 05:45 05/15/17 05:45 05/15/17 05:45 05/15/17 05:45 05/14/17 21:00 NECK: Supple,+HJR, pulsatile neck veins.Carotids 2+,no bruits were heard. HEART:PMI in the 5th intercostal space,S1 and S2 were normal, holosystolic murmur grade II/ heard at the Left Sternal Border and apex,S4 gallop heard at the apex. LUNGS:Clear on ascultation bilaterally. ABDOMEN:Soft, nontender,no hepatosplenomegaly. EXTREMIES: No calf tenderness,1+ bilateral pretibial edema. CBC, BMP 05/12/17 08:50 05/14/17 11:25 Impression: 1. Non sustained wide complex tachycardia 2. CAD s/p CABG,recent NSTEMI,recurrence of angina pectoris. 3. LV failure . 4. Severe LV systolic dysfunction 5. CKD. 6. Tricuspid regurgitation. 7. Mitral regurgitation 8. Poor compliance. 9. Recent sudden loss of consciousness, etiology: A. Secondary to arrythmias B. Possibly related to postural hypotension Recommendations: 1. Spoke to senior program planner at [facility] and he has been accepted for transfer. 2. Continue current medications. 3. Check blood pressure supine and standing. Prognosis: critical.
[2017-05-15 14:09] VITALS: BP 118/70; PULSE 86; TEMP 98.6
--- NOTE | 2017-05-16 10:48 | EKG ---
Test Reason : Blood Pressure : / mmHG Vent. Rate : 092 BPM Atrial Rate : 092 BPM P-R Int : 154 ms QRS Dur : 134 ms QT Int : 386 ms P-R-T Axes : 045 -56 134 degrees QTc Int : 477 ms SINUS RHYTHM WITH PREMATURE SUPRAVENTRICULAR COMPLEXES POSSIBLE LEFT ATRIAL ENLARGEMENT LEFT AXIS DEVIATION LEFT VENTRICULAR HYPERTROPHY WITH QRS WIDENING AND REPOLARIZATION ABNORMALITY ABNORMAL ECG WHEN COMPARED WITH ECG OF 12-MAY-2017 04:36, PREMATURE VENTRICULAR COMPLEXES ARE NO LONGER PRESENT PREMATURE SUPRAVENTRICULAR COMPLEXES ARE NOW PRESENT Confirmed by CHARLEE QUIROZ MD ([id number]) on 05/16/2017 10:48:08 AM Referred By: Confirmed By:CHARLEE QUIROZ MD
--- NOTE | 2017-05-16 11:49 | HOL ---
Hook-up date: 2017-05-13 12:21:00 Duration: 24:00:00 Test Indications: SYNCOPE Medications: [id number] QRS complexes 2011 Ventricular ectopics which represent 1 % of total QRS comp. 3379 Supraventricular ectopics which represent 2 % of total QRS comp. * Paced QRS complexs which represent % of total QRS comp. * % of Time Classified as Noise VENTRICULAR ECTOPY 1894 Isolated 6 Bigeminal Cycles 48 Couplets 2 Runs 21 Beats in Runs 11 Beats LONGEST at 129 BPM at 04:58:31 2017-05-14 10 Beats FASTEST at 131 BPM at 08:03:25 2017-05-14 SUPRAVENTRICULAR ECTOPY 3189 Isolated 95 Couplets 0 Runs 0 Beats in Runs * Beats LONGEST at * BPM at :: -- * Beats FASTEST at * BPM at :: -- HEART RATES 72 MIN at 03:17:28 2017-05-14 98 AVG 126 MAX at 16:34:31 2017-05-13 LONGEST RR 1.144 secs at 04:43:29 2017-05-14 SCANNED BY: ARISTEO 05/14/17 1. Basic rhythm was sinus. Averge daily heart rate of 98 BPM. Rates varied between 72 and 126 BPM 2. Occasional to frequent ventricular premature beats at times successive at 8:03 AM 3. Rare supraventricular premature beats 4. Intraventricular conduction delay of the left bundle branch block type. No diary was submitted. Confirmed by SHEIKH JOSUE, RADHA ([id number]), assistant editor AYAKA ARNOLD ([id number]) on 05/16/2017 11:48:26 AM Referred By: Venkata BRINK Overread By: RADHA ASIF MD
== END 2017-05-15 15:50 | disposition short-term general hospital (02) | DRG 280 ==
LOC: JER 04:27 → JERBED 10:44 → UNDOADMIN 10:49 → JERBED 10:49 → JICU 14:22 → J4W 20:00
PROVIDERS: ADMIT Specialist; ATTEND Specialist
DX: I49.8 Other specified cardiac arrhythmias (principal); I21.4 Non-ST elevation (NSTEMI) myocardial infarction; I50.21 Acute systolic (congestive) heart failure; I25.110 Atherosclerotic heart disease of native coronary artery with unstable angina pectoris; I24.8 Other forms of acute ischemic heart disease; I13.0 Hypertensive heart and chronic kidney disease with heart failure and stage 1 through stage 4 chronic kidney disease, or unspecified chronic kidney disease; E78.00 Pure hypercholesterolemia, unspecified; J44.9 Chronic obstructive pulmonary disease, unspecified; I08.1 Rheumatic disorders of both mitral and tricuspid valves; N40.0 Benign prostatic hyperplasia without lower urinary tract symptoms; I44.7 Left bundle-branch block, unspecified; R74.8 Abnormal levels of other serum enzymes; I47.2 Ventricular tachycardia; I95.1 Orthostatic hypotension; H70.13 Chronic mastoiditis, bilateral; N18.3 Chronic kidney disease, stage 3 (moderate); I44.39 Other atrioventricular block; Z88.1 Allergy status to other antibiotic agents; Z87.891 Personal history of nicotine dependence; Z95.1 Presence of aortocoronary bypass graft; Z91.14 Patient's other noncompliance with medication regimen
CPT/HCPCS: 36415; 70450-TC; 71010-TC; 80048; 80053; 83880; 84484; 85025; 85610; 85730; 93005; 93010; 93225; 93226; 99284-25; J1644

== ENCOUNTER 2017-05-24 15:39 | Emergency (ER) | payer BC, OTHER ==
[2017-05-24 15:50] VITALS: BMI 28.1
--- NOTE | 2017-05-24 16:34 | PDOC ---
History of Present Illness - History of Present Illness Initial Comments: 05/24/17 16:05 Mr. Howe is an 87 year old male with a significant past medical history of HTN, CAD, COPD, Renal Insuffiency, BPH, Liver Disfunction, NSTEMI, Syncope, Systolic CHF, and PSVT who presents to the emergency department with a one day history of severe headache, shortness of breath, dizziness, anxiety, and feeling "like he would pass out." He was discharged yesterday from [facility] following a L heart cath with left ventriculography, coronary angiography, percutaneous coronary intervention and ICD implantation following an instance of LOC. The patient denies chest pain and headache. Denies fever, chills, nausea, vomit , diarrhea and constipation. Denies dysuria, frequency, urgency and hematuria. Allergies: Amoxicillin, Potassium clavulanate Past surgical history: As above Social history: Former smoker - approximately 90 pack year history PMD - [facility] Solution Engineer: Mary <Christopher Goins - Last Filed: 05/24/17 18:55> <Markus Rivera - Last Filed: 05/24/17 22:13> - General Chief Complaint: Lightheaded Stated Complaint: EVALUATION (REFERRED) Time Seen by Provider: 05/24/17 16:02 Past History - Past Medical History Cardiac Disorders: Yes (CABG (5 years ago)) CHF: Yes HTN: Yes Hypercholesterolemia: Yes - Surgical History Cardiac Surgery: Yes (OPEN HEART SX) - Immunization History Immunization Up to Date: Yes - Psycho/Social/Smoking Cessation Hx Anxiety: No Suicidal Ideation: No Smoking Status: No Smoking History: Never smoked Have you smoked in the past 12 months: No Number of Cigarettes Smoked Daily: 0 If you are a former smoker, when did you quit?: 1960 Information on smoking cessation initiated: No Hx Alcohol Use: No Drug/Substance Use Hx: No Substance Use Type: Alcohol Hx Substance Use Treatment: No <Christopher Goins - Last Filed: 05/24/17 18:55> <Markus Rivera - Last Filed: 05/24/17 22:13> - Past Medical History Allergies/Adverse Reactions: Allergies Allergy/AdvReac Type Severity Reaction Status Date / Time amoxicillin trihydrate Allergy Verified 05/24/17 15:50 [From Augmentin] potassium clavulanate Allergy Verified 05/24/17 15:50 [From Augmentin] Home Medications: Ambulatory Orders Aspirin [ASA -] 81 mg PO DAILY #30 tab.chew 05/08/17 Spironolactone [Aldactone] 12.5 mg PO DAILY #30 tablet 05/08/17 Clopidogrel Bisulfate [Plavix -] 75 mg PO AM 05/10/17 Furosemide [Lasix] 40 mg PO AM 05/10/17 Atorvastatin Ca [Lipitor] 80 mg PO HS 05/24/17 Carvedilol 6.25 mg PO BID 05/24/17 Isosorbide Mononitrate [Imdur -] 30 mg PO DAILY 05/24/17 Metoprolol Tartrate 25 mg PO BID 05/24/17 Tamsulosin HCl 0.4 mg PO DAILY 05/24/17 Review of Systems - Review of Systems Comments:: 05/24/17 16:05 GENERAL/CONSTITUTIONAL: +Anxiety with lightheadedness and mild headache. No fever or chills. No weakness. HEAD, EYES, EARS, NOSE AND THROAT: No change in vision. No ear pain or discharge. No sore throat. CARDIOVASCULAR: No chest pain or shortness of breath RESPIRATORY: No cough, wheezing, or hemoptysis. GASTROINTESTINAL: No nausea, vomiting, diarrhea or constipation. GENITOURINARY: No dysuria, frequency, or change in urination. MUSCULOSKELETAL: No joint or muscle swelling or pain. No neck or back pain. SKIN: No rash NEUROLOGIC: No vertigo, loss of consciousness, or change in strength/sensation. ENDOCRINE: No increased thirst. No abnormal weight change HEMATOLOGIC/LYMPHATIC: No anemia, easy bleeding, or history of blood clots. ALLERGIC/IMMUNOLOGIC: No hives or skin allergy. <Christopher Goins - Last Filed: 05/24/17 18:55> *Physical Exam - Vital Signs Last Vital Signs Temp Pulse Resp BP Pulse Ox 98.1 F 82 20 117/60 98 05/24/17 15:44 05/24/17 15:44 05/24/17 15:44 05/24/17 15:44 05/24/17 15:44 - Physical Exam Comments: 05/24/17 16:04 GENERAL: Awake, alert, and fully oriented, in no acute distress HEAD: No signs of trauma, normocephalic, atraumatic EYES: PERRLA, EOMI, sclera anicteric, conjunctiva clear ENT: Auricles normal inspection, hearing grossly normal, nares patent, oropharynx clear without exudates. Moist mucosa NECK: Normal ROM, supple, no lymphadenopathy, JVD, or masses LUNGS: +Ronchi heard in R Lower Lung. No distress, speaks full sentences HEART: Regular rate and rhythm, normal S1 and S2, no murmurs, rubs or gallops, peripheral pulses normal and equal bilaterally. ABDOMEN: +Bruising noted jose raul to lower abdomen from recent coronary intervention. Soft, nontender, normoactive bowel sounds. No guarding, no rebound. No masses EXTREMITIES: +L inguinal area has bandage/wound from recent coronary intervention. Normal inspection, Normal range of motion, no edema. No clubbing or cyanosis. NEUROLOGICAL: Cranial nerves II through XII grossly intact. Normal speech, normal gait, no focal sensorimotor deficits SKIN: Warm, Dry, normal turgor, no rashes or lesions noted. <Christopher Goins - Last Filed: 05/24/17 18:55> - Vital Signs Last Vital Signs Temp Pulse Resp BP Pulse Ox 98.1 F 78 18 99/82 100 05/24/17 15:44 05/24/17 20:40 05/24/17 20:40 05/24/17 20:40 05/24/17 20:40 <Markus Rivera - Last Filed: 05/24/17 22:13> ED Treatment Course - LABORATORY CBC & Chemistry Diagram: 05/24/17 16:45 05/24/17 16:45 <Christopher Goins - Last Filed: 05/24/17 18:55> - LABORATORY CBC & Chemistry Diagram: 05/24/17 16:45 05/24/17 18:45 - ADDITIONAL ORDERS Additional order review: Laboratory Results 05/24/17 05/24/17 05/24/17 19:40 18:45 16:45 VBG pH 7.47 H POC VBG pCO2 35.2 L POC VBG pO2 122.0 H Mixed VBG HCO3 25.3 H Sodium 135 L Potassium 4.5 Chloride 100 Carbon Dioxide 25 Anion Gap 10 BUN 43 H Creatinine 2.3 H D Creat Clearance w eGFR 27.03 Random Glucose 130 H D Calcium 8.5 Total Bilirubin 0.8 AST 30 ALT 26 Alkaline Phosphatase 64 Creatine Kinase 177 Cancelled Creatine Kinase Index 1.7 CK-MB (CK-2) 3.068 Troponin I 4.36 H* D Cancelled B-Natriuretic Peptide 82066.65 H Total Protein 6.8 Albumin 3.3 L 05/24/17 16:45 VBG pH POC VBG pCO2 POC VBG pO2 Mixed VBG HCO3 Sodium Cancelled Potassium Cancelled Chloride Cancelled Carbon Dioxide Cancelled Anion Gap Cancelled BUN Cancelled Creatinine Cancelled Creat Clearance w eGFR Cancelled Random Glucose Cancelled Calcium Cancelled Total Bilirubin Cancelled AST Cancelled ALT Cancelled Alkaline Phosphatase Cancelled Creatine Kinase Creatine Kinase Index CK-MB (CK-2) Troponin I B-Natriuretic Peptide Total Protein Cancelled Albumin Cancelled 05/24/17 16:45 RBC 3.56 L MCV 87.0 MCHC 34.5 RDW 14.2 MPV 11.3 H D Neutrophils % 71.3 Lymphocytes % 13.9 Monocytes % 11.9 H Eosinophils % 1.9 Basophils % 1.0 - Medications Given in the ED: ED Medications Discontinued Medications Generic Name Dose Route Start Last Admin Trade Name Isidoro PRN Reason Stop Dose Admin Acetaminophen 650 mg 05/24/17 17:14 05/24/17 17:15 Tylenol - PO 05/24/17 17:15 650 mg ONCE ONE Administration Alprazolam 0.25 mg 05/24/17 16:56 05/24/17 17:14 Xanax - PO 05/24/17 16:57 0.25 mg ONCE ONE Administration Heparin Sodium (Porcine) 5,000 unit 05/24/17 21:42 05/24/17 21:59 Heparin - IVPUSH 05/24/17 21:43 5,000 unit ONCE ONE Administration <Markus Rivera - Last Filed: 05/24/17 22:13> Medical Decision Making - Medical Decision Making 05/24/17 17:03 Mr. Howe presents with symptoms of dizziness, anxiety, and headache (now resolved) that he says were "driving him up the wall" last night. He also says that he had some shortness of breath at this time. He is currently resting comfortably. 05/24/17 18:55 Care will be taken over by Dr. Rivera. <Christopher Goins - Last Filed: 05/24/17 18:55> *DC/Admit/Observation/Transfer - Attestations Physician Attestion: 05/24/17 18:56 I, Dr. Christopher Goins, attest that this document has been prepared under my direction and personally reviewed by me in its entirety. I further attest, that it accurately reflects all work, treatment, procedures and medical decision -making performed by me. <Christopher Goins - Last Filed: 05/24/17 18:55> - Discharge Dispostion Admit: No - Transfer to Acute Care Facility Receiving Facility: [facility] Accepting Physician:: Dr. Julian Pyle <Markus Rivera - Last Filed: 05/24/17 22:13> Diagnosis at time of Disposition: Non-ST elevated myocardial infarction, Shortness of breath, Chronic kidney disease (CKD) stage G3a/A2, moderately decreased glomerular filtration rate (GFR ) between 45-59 mL/min/1.73 square meter and albuminuria creatinine ratio between 30-299 mg/g - Discharge Dispostion Disposition: TRANSFER ACUTE CARE/OTHER HOSP Condition at time of disposition: Guarded - Referrals Referrals: Anmol Casey MD [Primary Care Provider] -
--- NOTE | 2017-05-24 16:47 | PDOC ---
Attending Attestation - Resident Resident Name: Christopher Goins - ED Attending Attestation I have performed the following: I have examined & evaluated the patient, The case was reviewed & discussed with the resident, I agree w/resident's findings & plan, Exceptions are as noted - HPI HPI: 05/24/17 16:54 87y M hx of htn, hl, cad s/p bypass, recent pm/defibrillator at [facility], d/c earlier this week presents with complaint of feeling moderate headache, lightheaded, sob since last night, worse when he is laying down, currently improved. Pt denies any chest pain, fever/chills, cough, sob, abd pain, back pain, diaphoresis, vision changes, numness/tingling/weakness. GENERAL: The patient is awake, alert, and fully oriented, Nontoxic - in no acute distress. HEAD: Normocephalic, atraumatic. EYES: extraocular movements intact, sclera anicteric, conjunctiva clear. ENT: Normal voice, Moist mucous membranes. NECK: Normal range of motion, supple CHEST/LUNGS: PM site clean/dry/intact, with overlying steri strips. lungs sounds noted for scant basilar crackles HEART: Regular rate and rhythm, normal S1 and S2 without murmur, rub or gallop. ABDOMEN: Soft, nontender, normoactive bowel sounds. No guarding, no rebound. No CVA tenderness EXTREMITIES: Normal range of motion, trace edema. NEUROLOGICAL: No facial assymetry, Normal speech, PSYCH: Normal mood, normal affect. SKIN: Warm, Dry, normal turgor, consider posisble chf due to positional nature of symptoms no signs ot suggest pna, will give tylenol for headache consider possible anxiety, will give some xanax will erassess and d/w PMD 05/24/17 19:58 pts labs reviewed noted for trop of 4 pt denies any cp and no significant ekg changes though - ?related to PM implantation/stent placement? will d/w dr. hernandez pt denies any current cp, sob 05/24/17 20:[address] Campuzano requests transfer to [facility] transfer service to discuss with cardiology to see if there was a trend of trops prior to d/c from [facility] pt states he feels well currently, denies current sob, chest pain no acute ekg changes will d/w cards regardin a/c 05/24/17 21:42 dw CCU fellow h florence bosch his attending regarding transfer would recommend haparinzation until ruled out 05/24/17 22:12 case dw with fellow, accepted for transfer under dr. Julian Lucas service to [facility] for further evaluation of his symptoms. CRITICAL CARE DOCUMENTATION: I spent ~35 minutes of Critical Care time, excluding separately billable procedures, involving high complexity decision making to assess, manipulate and support vital system function(s) to treat single or multiple vital organ system failure and/or to prevent further life threatening deterioration of the patient' s condition. - Physicial Exam PE: 05/24/17 22:20 see ablve - Medical Decision Making 05/25/17 02:22 see above Heart Score/ECG Review - ECG Impressions Comment:: 05/24/17 17:49 Twelve-lead EKG was performed and reviewed by me. There is normal sinus rhythm with a normal rate. Rate of 84 Left axis deviation No significant changes when compared with ekg dated May 12
[2017-05-24] MEDS ORDERED: ALPRAZolam 0.25 MG TABLET PO ONE (16:56)
[2017-05-24 17:01] LABS: EOSINOPHIL 1.9 % (0-4.5); MCHC 34.5 g/dl (32.0-35.9); MEAN PLT VOLUME 11.3 fl (7.5-11.1); NEUTROPHILS 71.3 % (42.8-82.8); PLATELET COUNT 138 K/MM3 (134-434); RDW 14.2 % (11.9-15.9); WHITE BLOOD COUNT 6.8 K/mm3 (4.0-10.0)
[2017-05-24] MEDS ORDERED: ALPRAZolam 0.25 MG TABLET ONE ×2 (17:08→17:11)
[2017-05-24] MEDS ORDERED: ACETAMINOPHEN 325 MG TABLET (FP) PO ONE (17:14)
[2017-05-24] MEDS ORDERED: ACETAMINOPHEN 325 MG TABLET (FP) ONE (17:16)
[2017-05-24 19:27] LABS: ALBUMIN 3.3 g/dl (3.4-5.0); ANION GAP 10 (8-16); CALCIUM 8.5 mg/dL (8.5-10.1); CO2 25 mmol/L (21-32); CREATININE 2.3 mg/dL (0.7-1.3); GLUCOSE,RANDOM 130 mg/dL (74-106); SGOT/AST 30 U/L (15-37); SGPT/ALT 26 U/L (12-78)
[2017-05-24 19:42] LABS: ALK PHOS 64 U/L (45-117); BILIRUBIN,TOTAL 0.8 mg/dL (0.2-1.0); CPK 177 IU/L (39-308); TOT PROT 6.8 g/dl (6.4-8.2)
[2017-05-24 19:49] LABS: VENOUS BLOOD GAS HCO3 25.3 meq/L (19-25); VENOUS PH 7.47 (7.32-7.42)
[2017-05-24 19:51] LABS: TROPONIN I 4.36 ng/ml (0.00-0.05)
[2017-05-24] MEDS ORDERED: HEPARIN NA (PORCINE) 5,000 UNITS/ML 1ML VIAL IVPUSH ONE (21:42)
[2017-05-24] MEDS ORDERED: HEPARIN INFUSION - 500 ML IVPB SCH (21:45)
[2017-05-24] MEDS ORDERED: HEPARIN NA (PORCINE) 5,000 UNITS/ML 1ML VIAL ONE (21:55)
[2017-05-24] MEDS ORDERED: HEPARIN INFUSION - 500 ML IVPB ONE (21:55)
[2017-05-24 22:19] VITALS: BP 112/81; PULSE 77; TEMP 98.2
[2017-05-24] MEDS ORDERED: ASPIRIN 81 MG CHEWABLE TABLETS PO ONE (22:26)
[2017-05-24] MEDS ORDERED: ASPIRIN 81 MG CHEWABLE TABLETS ONE (22:37)
[2017-05-24 23:21] LABS: INR 1.32 (0.82-1.09); PROTHROMBIN TIME (PATIENT) 14.6 SEC (9.98-11.88)
[2017-05-24 23:23] LABS: TROPONIN I 4.69 ng/ml (0.00-0.05)
--- NOTE | 2017-05-25 13:28 | EKG ---
Test Reason : Blood Pressure : / mmHG Vent. Rate : 084 BPM Atrial Rate : 084 BPM P-R Int : 170 ms QRS Dur : 136 ms QT Int : 410 ms P-R-T Axes : 028 -57 137 degrees QTc Int : 484 ms NORMAL SINUS RHYTHM WITH PREMATURE SUPRAVENTRICULAR COMPLEXES POSSIBLE LEFT ATRIAL ENLARGEMENT LEFT AXIS DEVIATION LEFT BUNDLE BRANCH BLOCK ABNORMAL ECG WHEN COMPARED WITH ECG OF 12-MAY-2017 08:51, NO SIGNIFICANT CHANGE WAS FOUND BASELINE ARTIFACT Confirmed by KIMBERLY SANDRA MD ([id number]) on 05/25/2017 1:28:36 PM Referred By: Confirmed By:KIMBERLY SANDRA MD
== END 2017-05-24 23:02 | disposition short-term general hospital (02) ==
LOC: JER 15:39
PROC: 3E033GC Introduction of Other Therapeutic Substance into Peripheral Vein, Percutaneous Approach (ICD-10-PCS; principal; 2017-05-24)
DX: I21.4 Non-ST elevation (NSTEMI) myocardial infarction (principal); I10 Essential (primary) hypertension; J44.9 Chronic obstructive pulmonary disease, unspecified; N40.0 Benign prostatic hyperplasia without lower urinary tract symptoms; I50.20 Unspecified systolic (congestive) heart failure; K76.9 Liver disease, unspecified; N28.9 Disorder of kidney and ureter, unspecified
CPT/HCPCS: 36415; 71010-TC; 80053; 82553; 82803; 83880; 84484; 85025; 85610; 85730; 93005; 93010; 99285-25; J1644

== ENCOUNTER 2017-06-09 08:41 | Emergency (ER) | payer BC, OTHER ==
[2017-06-09 08:53] VITALS: BP 144/85; PULSE 90; TEMP 98.4; BMI 28.1
== END 2017-06-09 09:30 | disposition left against medical advice (07) ==
LOC: JERFT 08:41 → SUPCPDRO 08:41 → JERFT 09:30
DX: Z53.21 Procedure and treatment not carried out due to patient leaving prior to being seen by health care provider (principal)
CPT/HCPCS: 99281-25

== ENCOUNTER 2017-06-10 03:56 | Inpatient (IN) | payer BC, OTHER ==
--- NOTE | 2017-06-10 05:02 | PDOC ---
History of Present Illness - General Chief Complaint: Respiratory Stated Complaint: DIFFIXULTY BREATHING Time Seen by Provider: 06/10/17 04:39 History Source: Patient Exam Limitations: No Limitations - History of Present Illness Initial Comments: 06/10/17 04:54 Patient is an 87-year-old male with history of HTN, Renal Insuffiecency, BPH, Liver dysfunction, NSTEMI, syncope, PSVT, systolic CHF, CAD, CABG 5 years ago, cardiac stents 3 weeks ago with defibrillator complaining of shortness of breath and cough. States he's had a cough which is been chronic for years and shortness of breath however his symptoms worsened tonight and he was unable to sleep. States he has been compliant with his Lasix. Denies chest pain, dizziness , abd pain, PMD: Dr Casey Cardio: Dr. Hernandez PMHX: as above PSOCHx: (+) cig smoker stopped 25years ago, neg drug, ne etoh ALL: PCN, statin, potassium GENERAL/CONSTITUTIONAL: [No fever or chills. No weakness. No weight change.] HEAD, EYES, EARS, NOSE AND THROAT: [No change in vision. No ear pain or discharge. No sore throat.] CARDIOVASCULAR: [No chest pain or shortness of breath.] RESPIRATORY: (+) cough, wheezing, or hemoptysis.] GASTROINTESTINAL: [No nausea, vomiting, diarrhea or constipation. No rectal bleeding.] GENITOURINARY: [No dysuria, frequency, or change in urination.] MUSCULOSKELETAL: [No joint or muscle swelling or pain. No neck or back pain.] SKIN AND BREASTS: [No rash or easy bruising, (+) edema.] NEUROLOGIC: [No headache, vertigo, loss of consciousness, or loss of sensation.] PSYCHIATRIC: [No depression or anxiety.] ENDOCRINE: [No increased thirst. No abnormal weight change.] HEMATOLOGIC/LYMPHATIC: [No anemia, easy bleeding, or history of blood clots.] ALLERGIC/IMMUNOLOGIC: [No hives or skin allergy. No latex allergy.] GENERAL: [The patient is awake, alert, and fully oriented, in no acute distress , coughing] HEAD: [Normal with no signs of trauma.] EYES: [Pupils equal, round and reactive to light, extraocular movements intact, sclera anicteric, conjunctiva clear.] ENT: [Ears normal, nares patent, oropharynx clear without exudates. Moist mucous membranes.] NECK: [Normal range of motion, supple without lymphadenopathy, JVD, or masses.] LUNGS: [Breath sounds equal, crackles bilateral bases up to distal 3rd. . HEART: [Regular rate and rhythm, normal S1 and S2 without murmur, rub.] ABDOMEN: [Soft, nontender, normoactive bowel sounds. No guarding, no rebound. No masses.] EXTREMITIES: Bilateral pitting edema 1+, No clubbing or cyanosis. No cords, erythema, (+) tenderness.] NEUROLOGICAL: [Cranial nerves II through XII grossly intact. Normal speech, normal gait.] PSYCH: [Normal mood, normal affect.] SKIN: Warm, Dry, normal turgor, no rashes or lesions noted.] Past History - Past Medical History Allergies/Adverse Reactions: Allergies Allergy/AdvReac Type Severity Reaction Status Date / Time amoxicillin trihydrate AdvReac Mild gi upset Verified 06/09/17 08:50 [From Augmentin] atorvastatin calcium AdvReac Mild gi upset Verified 06/09/17 08:50 [From Lipitor] potassium clavulanate AdvReac Mild gi upset Verified 06/09/17 08:50 [From Augmentin] Home Medications: Ambulatory Orders Aspirin [ASA -] 81 mg PO DAILY #30 tab.chew 05/08/17 Spironolactone [Aldactone] 12.5 mg PO DAILY #30 tablet 05/08/17 Clopidogrel Bisulfate [Plavix -] 75 mg PO AM 05/10/17 Furosemide [Lasix] 40 mg PO AM 05/10/17 Atorvastatin Ca [Lipitor] 80 mg PO HS 05/24/17 Carvedilol 6.25 mg PO BID 05/24/17 Isosorbide Mononitrate [Imdur -] 30 mg PO DAILY 05/24/17 Metoprolol Tartrate 25 mg PO BID 05/24/17 Tamsulosin HCl 0.4 mg PO DAILY 05/24/17 Cardiac Disorders: Yes (CABG (5 years ago), CAD) CHF: Yes HTN: Yes Hypercholesterolemia: Yes Psychiatric Problems: Yes (anxiety, insomnia) - Surgical History Cardiac Surgery: Yes (OPEN HEART SX, cardiac stent 05/30, AICD 05/30) - Immunization History Immunization Up to Date: Yes - Psycho/Social/Smoking Cessation Hx Anxiety: Yes Suicidal Ideation: No Smoking Status: No Smoking History: Unknown if ever smoked Have you smoked in the past 12 months: No Number of Cigarettes Smoked Daily: 0 If you are a former smoker, when did you quit?: 1960 Hx Alcohol Use: No Drug/Substance Use Hx: No Substance Use Type: Alcohol Hx Substance Use Treatment: No *Physical Exam - Vital Signs Last Vital Signs Temp Pulse Resp BP Pulse Ox 97.9 F 106 H 16 142/94 98 06/10/17 04:36 06/10/17 04:36 06/10/17 04:36 06/10/17 04:36 06/10/17 04:36 ED Treatment Course - LABORATORY CBC & Chemistry Diagram: 06/10/17 06:04 06/10/17 06:04 - RADIOLOGY Radiology Studies Ordered: Category Date Time Status CHEST X-RAY PORTABLE* [RAD] Stat Radiology 06/10/17 04:52 Ordered Medical Decision Making - Medical Decision Making 06/10/17 05:02 Patient is an 87-year-old male with history of CHF, CAD, CABG, cardiac stents 3 weeks ago with defibrillator complaining of shortness of breath and cough with crackles in the base most likely with CHF. labs, ekg, cxr possible diaretics, will most likely be admitted. cxr increased markings, cardiomegaly and device in left chest EKG ST rate 104, LAD, LBBB 06/10/17 07:08 Laboratory Tests 06/10/17 06/10/17 06/10/17 06:04 06:04 06:04 WBC 7.5 Hgb 12.9 D Hct 39.1 D INR 1.52 H Sodium 136 Potassium 4.4 Chloride 97 L Carbon Dioxide 26 Anion Gap 13 BUN 41 H Creatinine 2.3 H Random Glucose 126 H Troponin I 0.31 H D B-Natriuretic Peptide 12300.40 H patient with elevated BNP and trop will give ASA and lasix Endorsed to the day team pending labs and admission *DC/Admit/Observation/Transfer Diagnosis at time of Disposition: CHF (congestive heart failure) Qualifiers: Congestive heart failure type: unspecified congestive heart failure type Congestive heart failure chronicity: acute on chronic Qualified Code(s): I50.9 - Heart failure, unspecified - Referrals Referrals: Anmol Casey MD [Primary Care Provider] -
[2017-06-10 06:14] LABS: BASOPHIL 1.4 % (0-2.0); EOSINOPHIL 0.4 % (0-4.5); MCH 29.7 pg (25.7-33.7); MEAN CELL VOLUME 90.1 fl (80-96); MEAN PLT VOLUME 10.9 fl (7.5-11.1); NEUTROPHILS 75.5 % (42.8-82.8); PLATELET COUNT 155 K/MM3 (134-434); WHITE BLOOD COUNT 7.5 K/mm3 (4.0-10.0)
[2017-06-10 06:27] LABS: INR 1.52 (0.82-1.09); PROTHROMBIN TIME (PATIENT) 16.9 SEC (9.98-11.88)
[2017-06-10 06:38] LABS: ALBUMIN 3.8 g/dl (3.4-5.0); ANION GAP 13 (8-16); BILIRUBIN,TOTAL 2.3 mg/dL (0.2-1.0); CO2 26 mmol/L (21-32); CREATININE 2.3 mg/dL (0.7-1.3); GLUCOSE,RANDOM 126 mg/dL (74-106); SGPT/ALT 55 U/L (12-78); TOT PROT 7.5 g/dl (6.4-8.2)
[2017-06-10 06:53] LABS: ALK PHOS 125 U/L (45-117); CPK 480 IU/L (39-308); TROPONIN I 0.31 ng/ml (0.00-0.05)
[2017-06-10 06:55] LABS: SGOT/AST 79 U/L (15-37)
[2017-06-10] MEDS ORDERED: ASPIRIN 325 MG ENTERIC COATED TABLET (FP) PO ONE (07:10)
[2017-06-10] MEDS ORDERED: FUROSEMIDE 40 MG/4 ML INJECTABLE VIAL IVPUSH ONE (07:10)
--- NOTE | 2017-06-10 07:18 | PDOC ---
*Physical Exam - Vital Signs Last Vital Signs Temp Pulse Resp BP Pulse Ox 98.5 F 90 18 144/82 100 06/10/17 06:57 06/10/17 06:57 06/10/17 06:57 06/10/17 06:57 06/10/17 06:57 06/10/17 07:22 ED Treatment Course - LABORATORY CBC & Chemistry Diagram: 06/10/17 06:04 06/10/17 06:04 - ADDITIONAL ORDERS Additional order review: Laboratory Results 06/10/17 06/10/17 06:04 06:04 INR 1.52 H Sodium 136 Potassium 4.4 Chloride 97 L Carbon Dioxide 26 Anion Gap 13 BUN 41 H Creatinine 2.3 H Creat Clearance w eGFR 27.03 Random Glucose 126 H Calcium 9.0 Total Bilirubin 2.3 H D AST 79 H D ALT 55 D Alkaline Phosphatase 125 H D Creatine Kinase 480 H Creatine Kinase Index 1.2 CK-MB (CK-2) 6.080 H Troponin I 0.31 H D B-Natriuretic Peptide 39741.40 H Total Protein 7.5 Albumin 3.8 06/10/17 06:04 RBC 4.33 D MCV 90.1 MCHC 33.0 RDW 16.0 H D MPV 10.9 Neutrophils % 75.5 Lymphocytes % 12.5 Monocytes % 10.2 Eosinophils % 0.4 Basophils % 1.4 - RADIOLOGY Radiology Studies Ordered: Category Date Time Status DUPLEX VASCUL US-1 LEG [US] Stat Ultrasound 06/10/17 07:18 Ordered Medical Decision Making - Medical Decision Making 06/10/17 07:18 This is an 87 year old male with a history of CAD s/p CABG, angina pectoris, recent NSTEMI s/p cath and stents in April of this year, severe left ventricular systolic dysfuntion s/p AICD, HTN, HLD, vertigo and tinnitus, CKD and COPD. He presented to the ED today complaining of worsening shortness of breath, orthopnea, and cough. He denies fevers/chills, chest pain, or any other symptoms. The patient states that he has stopped taking all of his medications because of "side effects" except for his aspirin and "water pill" (he is unsure if Lasix or Aldactone). V/s are notable for P 106. Exam notable for: -Tachypnea with accessory muscle use -Rales to mid lung desir -LLE edema (patient has some chronic edema s/p CABG, but this is unusually swollen and painful for him) Workup so far is notable for: -EKG: Sinus tachycardia at 104bpm, LBBB -CXR: New congestive changes since 05/24 -Troponin 0.31 -BNP [id number] Plan: -Supplemental 02 -ASA -Lasix 40mg IVP -Admit Discussed with Dr. Casey (requests hospitalist) and Dr. Campuzano. Accepted by Dr. Hidalgo for telemetry admission. *DC/Admit/Observation/Transfer Diagnosis at time of Disposition: CHF (congestive heart failure) Qualifiers: Congestive heart failure type: unspecified congestive heart failure type Congestive heart failure chronicity: acute on chronic Qualified Code(s): I50.9 - Heart failure, unspecified - Discharge Dispostion Admit: Yes - Referrals Referrals: Anmol Casey MD [Primary Care Provider] - - Patient Instructions - Post Discharge Activity
[2017-06-10] MEDS ORDERED: FUROSEMIDE 40 MG/4 ML INJECTABLE VIAL ONE (07:31)
[2017-06-10] MEDS ORDERED: ASPIRIN 325 MG TABLET ONE (07:59)
--- NOTE | 2017-06-10 11:39 | PN ---
Progress Note (short form) - Note Progress Note: PULMONARY CONSULTATION DICTATED 06/10/17 IMP DYSPNEA ACUTE ON CHRONIC CHF SEVERE LV DYSFUNCTION ASHD S/P CABG,STENTS PULMONARY HTN HTN CKD PLAN LASIX O2 DAILY WTS INHALED BRONCHODILATORS F/U CHEST X-RAY MONITOR LYES ,RENAL FUNCTION DR ANGELA Problem List - Problems (1) CAD (coronary artery disease) Code(s): I25.10 - ATHSCL HEART DISEASE OF [place] CORONARY ARTERY W/O ANG PCTRS (2) CHF (congestive heart failure) Code(s): I50.9 - HEART FAILURE, UNSPECIFIED Qualifiers: Congestive heart failure type: unspecified congestive heart failure type Congestive heart failure chronicity: acute on chronic Qualified Code(s): I50.9 - Heart failure, unspecified (3) Hypertension Code(s): I10 - ESSENTIAL (PRIMARY) HYPERTENSION (4) Renal insufficiency Code(s): N28.9 - DISORDER OF KIDNEY AND URETER, UNSPECIFIED (5) Dyspnea on exertion Code(s): R06.09 - OTHER FORMS OF DYSPNEA (6) SOB (shortness of breath) Code(s): R06.02 - SHORTNESS OF BREATH (7) Chronic kidney disease (CKD) stage G3a/A2, moderately decreased glomerular filtration rate (GFR) between 45-59 mL/min/1.73 square meter and albuminuria creatinine ratio between 30-299 mg/g Code(s): N18.3 - CHRONIC KIDNEY DISEASE, STAGE 3 (MODERATE)
--- NOTE | 2017-06-10 12:02 | CONS ---
DATE OF CONSULTATION: 06/10/2017 REFERRING PHYSICIAN: Dr. Pemberton HISTORY: The patient is an 87-year-old white male noted to me from previous hospitalization with a past medical history of ASHD status post CABG 5 years ago status post stent 3 weeks ago status post ICD, congestive heart failure severe, systolic CHF, ASHD, status post CABG, syncope, PSVT, nonSTEMI, liver dysfunction, BPH, chronic kidney disease admitted to [facility] with complaint of a 3- to 4-day history of increasing shortness of breath, orthopnea. The patient denied any complaint of chest pain, nausea, vomiting, or diaphoresis. He states he developed increasing shortness of breath and unable to sleep secondary to severe dyspnea. Denies any fevers or chills. He presented to the emergency as above. In the ER today, he is found to be with CHF. He was transferred to the telemetry unit for further management. The patient is noncompliant with medications. Apparently, he stops his medications on his own. He denies any history of DVT or PE in the past. He has a history of tobacco use. Quit greater than 25 years ago. 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 PAST MEDICAL HISTORY: Again includes ASHD status post CABG status post stent 3 weeks ago, defibrillator, non-ST NM, syncope, PSVD, severe systolic CHF, BPH, liver dysfunction, chronic kidney disease, hypertension. REVIEW OF SYSTEMS: Positive for orthopnea. Positive for dyspnea. Moderate cough. No chest pain, no palpitations. Positive lower extremity edema. MEDICATIONS: Prior to admission include aspirin, Aldactone, Plavix, Lasix, Lipitor, carvedilol, Imdur, metoprolol, and tamsulosin. Current medications include Lasix in the emergency room 40 mg IV x2. PHYSICAL EXAMINATION: GENERAL: The patient is a well-developed, well-nourished male awake and alert. He is comfortable in no acute respiratory distress. He is currently afebrile. VITAL SIGNS: Blood pressure 132/86, respiratory rate 20, O2 saturation is 100% on 2 L. HEENT: Normocephalic and atraumatic. NECK: Supple. HEART: Regular with S1, S2. CHEST: Bilateral crackles throughout. ABDOMEN: Soft. Bowel sounds are positive. EXTREMITIES: Bilateral lower extremity edema left greater than right. LABORATORIES: WBC 7.5, hemoglobin 12.9, hematocrit 39.1 with a platelet count of 155,000. INR 3.52, BUN 41, creatinine 2.3. BNP 34,090. Chest x-ray reveals increased pulmonary venous congestion, cardiomegaly. IMPRESSION: 1. Acute on chronic decompensated congestive heart failure, systolic. 2. Severe arteriosclerotic heart disease, status post coronary artery bypass graft status post stent. 3. Acute on chronic renal failure. 4. Status post non-ST myocardial infarction. 5. Hypertension. 6. Liver dysfunction. PLAN: IV Lasix. Supplemental O2. Daily weights. Continue cardiac medications as per Cardiology. Obtain a follow up chest x-ray. Stress compliance with medication. EV ANGELA M.D. KERON/[id number]
[2017-06-10 13:29] LABS: TROPONIN I 0.71 ng/ml (0.00-0.05)
--- NOTE | 2017-06-10 13:30 | HP ---
CHIEF COMPLAINT:Shortness of breath PCP:Eleni HISTORY OF PRESENT ILLNESS: 87M PMH of HTN HLD CKD COPD BPH possible liver dysfunction, recent NSTEMI last month, PSVT, and CAD s/p CABG x 5 yrs ago at [facility] who presents to the ED complaining of shortness of breath and worsening orthopnea. Per the patient he has been having worsening shortness of breath since his cardiac cath last month. He states his exercise tolerance has been slightly getting worse but most concerning for him is his inability to lay down. He also states many of the medications have been giving him nightmares and has not been taking the medications he was supposed to be taking since his procedure. He states he has been taking his lasix but none of the other medications. At times he tells me he is unsure He endorses a dry cough for the past month as well. He denies nausea vomiting fevers chills chest pain diarrhea or constipation. Denies any urinary symptoms. Pascual seems to be a poor historian. Patient had elevation of troponins in the ED. ER course was notable for: CXR Labs EKG Lasix aspirin Recent Travel: Non PAST MEDICAL HISTORY: As above Anxiety insomnia PAST SURGICAL HISTORY: CABG about 5 years ago , possible ear surgery Social History: Smokin pack-year history, quit age 30 after an episode of hemoptysis Alcohol: None Family History: Allergies amoxicillin trihydrate [From Augmentin] Adverse Reaction (Mild, Verified 08:50) gi upset atorvastatin calcium [From Lipitor] Adverse Reaction (Mild, Verified 06/09/17 08 :50) gi upset potassium clavulanate [From Augmentin] Adverse Reaction (Mild, Verified 08:50) gi upset HOME MEDICATIONS: Home Medications Medication Instructions Recorded Aspirin [ASA -] 81 mg PO DAILY #30 tab.chew 05/08/17 Clopidogrel Bisulfate [Plavix -] 75 mg PO AM 05/10/17 Furosemide [Lasix] 40 mg PO AM 05/10/17 Carvedilol 6.25 mg PO BID 05/24/17 Isosorbide Mononitrate [Imdur -] 30 mg PO DAILY 05/24/17 Metoprolol Tartrate 37.5 mg PO BID 05/24/17 Tamsulosin HCl 0.4 mg PO DAILY 05/24/17 Simvastatin 20 mg PO HS 06/10/17 Spironolactone 25 mg PO DAILY 06/10/17 Trazodone HCl 50 mg PO HS 06/10/17 REVIEW OF SYSTEMS CONSTITUTIONAL: Absent: fever, chills, diaphoresis, generalized weakness, malaise, loss of appetite, weight change HEENT: Absent: rhinorrhea, nasal congestion, throat pain, throat swelling, difficulty swallowing, mouth swelling, ear pain, eye pain, visual changes CARDIOVASCULAR: Absent: chest pain, syncope, palpitations, irregular heart rate, lightheadedness , Present: peripheral edema RESPIRATORY: Absent: cough, shortness of breath, dyspnea with exertion,, wheezing, stridor, hemoptysis Present: orthopnea, worsening exercise tolerance GASTROINTESTINAL: Absent: abdominal pain, abdominal distension, nausea, vomiting, diarrhea, constipation, melena, hematochezia GENITOURINARY: Absent: dysuria, frequency, urgency, hesitancy, hematuria, flank pain, genital pain MUSCULOSKELETAL: Absent: myalgia, arthralgia, joint swelling, back pain, neck pain SKIN: Absent: rash, itching, pallor HEMATOLOGIC/IMMUNOLOGIC: Absent: easy bleeding, easy bruising, lymphadenopathy, frequent infections ENDOCRINE: Absent: unexplained weight gain, unexplained weight loss, heat intolerance, cold intolerance NEUROLOGIC: Absent: headache, focal weakness or paresthesias, dizziness, unsteady gait, seizure, mental status changes, bladder or bowel incontinence PSYCHIATRIC: Absent: anxiety, depression, suicidal or homicidal ideation, hallucinations. PHYSICAL EXAMINATION Vital Signs - 24 hr 06/10/17 10:55 Temperature 98 F Pulse Rate 102 H Respiratory 20 Rate Blood Pressure 132/86 O2 Sat by Pulse 100 Oximetry (%) GENERAL: Awake, alert, in no acute distress. HEAD: Normal with no signs of trauma. NECK: supple LUNGS: Diffuse wheezing with crackles HEART: Regular rate and rhythm, normal S1 and S2 without murmur, rub or gallop. +JVD +hepatojugular reflux ABDOMEN: Soft, nontender, not distended, normoactive bowel sounds, no guarding, no rebound LOWER EXTREMITIES: warm, No calf tenderness. 3+ pitting edema bilaterally up to knee. LLE circumference > RLE circumference NEUROLOGICAL: Cranial nerves II-XII grossly intact. Normal speech. ECHO from : LVEF severely decreased hypokinesis of LV. left atrial enlargement Mild MR mild TR Pulm hypertension. Mild aortic stenosis Duplex US:No DVT in LLE ASSESSMENT/PLAN: 87M with multiple medical problems presents to the hospital with acute on chronic left sided systolic heart failure and worsening orthopnea. acute on chronic CHF left sided systolic exacerbation: likely secondary to medication non complicance vs NSTEMI. patient recently has an NSTEMI where he had a left heart cath angiogram PCI with stent and ICD placement. He has not been taking his medications since then. start lasix 40mg IV push daily cardiology consult admit to telemetry strict I/O daily weights spironolactone coreg 12.5 mg po BID Imdur Troponinemia: Possible NSTEMI but most likely demand ischemia from CHF exacerbation but it is also possible NSTEMI led to his current symptoms troponins trending upwards cardiology on boards echo noted possible patient thrombosed stents as he was not taking his aspirin and plavix restart aspirinn plavix consider heparin gtt if troponins continue to rise Transaminitis:anicteric likely secondary to liver congestion from CHF exacerbation Will trend LFTs should improve with diuresis will consider RUQ US if does not improve CAD: see above restart statin restart Plavix restart aspirin HTN: increase coreg to 12.5mg po BID IMDUR 30mg po daily hyperglycemia: check HbA1C fingersticks ACHS to monitor glucose values. COPD: not in acute exacerbation at this time pulmonology consult appreciated bronchodialtors PRN O2 PRN CKD: Creatinine at baseline will continue to trend and monitor BPH: restart home dose of flomax anxiety/insomnia: restart trazadone Pulm HTN: FEN: no IVF no electrolyte issues diabetic/sodium controlled diet PPx: HSQ no GI PPx indicated no PT consult needed patient is ambulating with a cane case discussed with Dr. Hidalgo Visit type - Emergency Visit Emergency Visit: Yes ED Registration Date: 06/10/17 Care time: The patient presented to the Emergency Department on the above date and was hospitalized for further evaluation of their emergent condition. - New Patient This patient is new to me today: Yes Date on this admission: 06/10/17 - Critical Care Critical Care patient: No
[2017-06-10] MEDS: HEPARIN NA (PORCINE) 5,000 UNITS/ML 1ML VIAL SQ SCH ×2 (15:04→22:18)
--- NOTE | 2017-06-10 15:40 | PN ---
Teaching Attending Note Name of Resident: Juan Gonzalez ATTENDING PHYSICIAN STATEMENT I saw and evaluated the patient. I reviewed the resident's note and discussed the case with the resident. I agree with the resident's findings and plan as documented. SUBJECTIVE: no fever or chills. has SOB and DUMONT, and orthopnea since his last dc after cath. He is poor historian and admitted to resident not to take his meds, but claimed compliance for all med but plavix to me . denies CP or palpitations. has LE edema which is worse. . recently was tx from ER for cath due to NSTEMi and had AICD placed . OBJECTIVE: NAD , AAOX3 . HEENT: NC, AT, JVD . MMM CV: RRR, no mRG. Lungs: crackles half whay down on both sides. Abd : soft, NT, ND , NL BS Ext: 2+ pitting edema on both legs from knee down. recent well healing scar on medial L calf. DP 2+ ASSESSMENT AND PLAN: 87 y/o man with h/ o CAD, S/p CCABG, recent stenting, AICD placement , HTN, HL, and other medical problems who presented with worsening SOB and was found to have acute CHF exacerbation 1- Acute on chronic Systolic and diastolic CHF: due to non compliance with meds. possible nSTEMI. - start IV lasix. 40 /day - resume ARB and increase dose of coreg . - dc metoprolol - echo reviewed. Card consult 2- h/o CKD : cr at base line 3- Transaminitis withelevated trop. nl abd exam, likely due to liver congestion form CHF. also possible statin use - monitor with treatment of heart failure - will do US if no improvement - nehemias whilel on statin 4- HTN: ARB and increase dose of coreg. dc metoprolol 5- elevated trop: no CP , could be demand ischemia but could be NSTEMI. can't find EKG done inER. - repeat EKG - follow trop , if further elevation will start heparin gtt - explained o pt risk of stent thromnbosis and subsequent AK and , he understands and refuses to use plavix - cont asa DVT px HLOC
--- NOTE | 2017-06-10 18:49 | EKG ---
Test Reason : Blood Pressure : / mmHG Vent. Rate : 097 BPM Atrial Rate : 097 BPM P-R Int : 166 ms QRS Dur : 138 ms QT Int : 402 ms P-R-T Axes : 051 -54 129 degrees QTc Int : 510 ms SINUS RHYTHM WITH OCCASIONAL PREMATURE VENTRICULAR COMPLEXES POSSIBLE LEFT ATRIAL ENLARGEMENT LEFT AXIS DEVIATION LEFT BUNDLE BRANCH BLOCK ABNORMAL ECG WHEN COMPARED WITH ECG OF 10-JUN-2017 06:40, PREMATURE VENTRICULAR COMPLEXES ARE NOW PRESENT Confirmed by JERRY SALAS, YEN ([id number]) on 06/10/2017 6:48:58 PM Referred By: Tolu TAYLOR Confirmed By:YEN EDWARDS MD
--- NOTE | 2017-06-10 19:01 | EKG ---
Test Reason : Blood Pressure : / mmHG Vent. Rate : 104 BPM Atrial Rate : 104 BPM P-R Int : 166 ms QRS Dur : 134 ms QT Int : 390 ms P-R-T Axes : 050 -49 124 degrees QTc Int : 512 ms SINUS TACHYCARDIA POSSIBLE LEFT ATRIAL ENLARGEMENT LEFT AXIS DEVIATION LEFT BUNDLE BRANCH BLOCK ABNORMAL ECG WHEN COMPARED WITH ECG OF 24-MAY-2017 17:31, PREMATURE SUPRAVENTRICULAR COMPLEXES ARE NO LONGER PRESENT T WAVE INVERSION LESS EVIDENT IN LATERAL LEADS VENT. RATE HAS INCREASED Confirmed by YEN EDWARDS MD ([id number]) on 06/10/2017 7:00:49 PM Referred By: Confirmed By:YNE EDWARDS MD
[2017-06-10 21:17] LABS: TROPONIN I 0.96 ng/ml (0.00-0.05)
[2017-06-10] MEDS ORDERED: ATORVASTATIN CA 40 MG TABLET (FP) PO SCH (22:00)
[2017-06-10] MEDS ORDERED: METOPROLOL TARTRATE 25 MG TABLET (FP) PO SCH ×2 (22:00)
[2017-06-10] MEDS ORDERED: CARVEDILOL 6.25 MG TABLET (FP) PO SCH (22:00)
[2017-06-10] MEDS ORDERED: ATORVASTATIN CA 10 MG TABLET (FP) PO SCH (22:00)
[2017-06-10] MEDS: CARVEDILOL 12.5 MG TABLET (FP) PO SCH (22:15)
[2017-06-10] MEDS: traZODone HCL 50 MG TABLET (FP) PO SCH (22:15)
[2017-06-10] MEDS: ROSUVASTATIN CA 5 MG TABLET (FP) PO SCH (22:16)
--- NOTE | 2017-06-10 23:15 | CONS ---
DATE OF CONSULTATION: 06/10/2017 REQUESTING PHYSICIAN: Hospitalist. CARDIOLOGY CONSULTATION CHIEF COMPLAINT: Increasing shortness of breath and pedal edema. HISTORY OF PRESENT ILLNESS: Patient is an 87-year-old gentleman with longstanding history of coronary artery disease, status post coronary artery bypass grafting, non-ST segment elevation myocardial infarction, status post PCI/stenting, severe left ventricular systolic dysfunction, status post ICD for primary prophylaxis, hypertension, hypertensive cardiovascular disease, renal insufficiency, history of syncope prior to insertion of ICD, nonsustained ventricular tachycardia. The patient continues to show extremely poor compliance and again stopped taking all his medication, started developing increasing dyspnea associated with pedal edema and came to the emergency room complaining of severe dyspnea. Was found to be in acute left ventricular failure. Patient has on multiple occasions advised that he cannot stop his medications, but refuses to follow instructions. He denies having chest pain or discomfort either at rest or with exertion, history of exertional dyspnea, orthopnea and paroxysmal nocturnal dyspnea. No history of palpitations, lightheadedness, dizziness, presyncope or syncope reported. Admits to poor dietary compliance. PAST HISTORY: 1. As mentioned in the history of present illness. 2. Chronic obstructive pulmonary disease. 3. History of BPH. SOCIAL HISTORY: A , states he is retired. Has 1 daughter from his marriage and apparently states he has 2 other daughters out of wedlock. He stopped smoking many years ago and apparently smoked between 2 and 3 packets of cigarettes per day. States he has an occasional glass of wine or beer. FAMILY HISTORY: Father suddenly at the age of 70. Mother in her 70s, apparently related to complications of acute appendicitis. Has 7 brothers and 1 sister. Three of the brothers are . The other brothers and sisters are alive. ALLERGIES: States that he may be allergic to AMOXICILLIN. CURRENT MEDICATIONS: 1. Carvedilol 12.5 mg p.o. b.i.d. 2. Heparin 5000 units subcutaneous t.i.d. 3. Rosuvastatin 5 mg p.o. daily. 4. Lasix 40 mg IV. 5. Spironolactone 25 mg p.o. daily. 6. Isosorbide mononitrate 30 mg p.o. daily. 7. Aspirin 81 mg p.o. daily. 8. Clopidogrel bisulfate 75 mg p.o. daily. 9. Trazodone 50 mg p.o. daily at bedtime. REVIEW OF SYSTEMS: Constitutional: No history of chills, fever, or night sweats. No history of unintentional weight loss. HEENT: No history of headaches, diplopia, blurred vision. No history of epistaxis, hoarseness, no history of tinnitus, or vertigo. History of bilateral deafness requiring hearing aids. Cardiovascular: See history of present illness. Respiratory: See history of present illness. Denies having recent cough, expectoration or hemoptysis. Gastrointestinal: No history of nausea, vomiting, melena or hematemesis reported. No history of abdominal pain or discomfort, no change in bowel habits. Central Nervous System: No history of seizures, syncope, focal weakness. No history of lightheadedness or dizziness. Endocrine: See history of present illness. No history of intolerance to cold or warm weather or polyuria or polydipsia. Genitourinary: See history of present illness. History of nocturia. Musculoskeletal: Denies having myalgias or arthralgias. Hematological/Lymphatics: No history of anemia, bleeding or ecchymosis. No history of lymphadenopathy. PHYSICAL EXAMINATION: General: An 87-year-old alert gentleman in mild respiratory distress, no pallor, cyanosis, clubbing or jaundice. Vital signs: Weight 180 pounds, blood pressure 123/66 mmHg, pulse 99 beats per minute and regular, height 97.3 degrees Fahrenheit. Neck: Supple. No jugulovenous distention. Positive hepatojugular reflex. The carotids were 2+, upstrokes were normal, no bruits were appreciated. Heart: PMI was in the 5th intercostal space, no heaves or thrills. Heart sounds were distant. There was grade 2/6 holosystolic murmur heard along the lower left sternal border and apex. No diastolic murmur or gallops were heard. Lungs: Fine crepitations at both bases. Chest: Normal AP diameter, expansion was symmetrical, there was ecchymosis involving the right chest. There was a well healed surgical wound involving the right upper left chest (ICD insertion site). Abdomen: Soft, protuberant, nontender, no hepatosplenomegaly or palpable masses were felt. Extremities: No calf tenderness. There was 2+ bilateral lower extremity pitting edema. Right femoral pulse was 1 to 2+, left was 1+. Right posterior tibial pulse was palpable, left could not be palpated. Right dorsalis pedis pulse was weak, left was not palpable. LABORATORY DATA: On June 10, 2017, WBC count 7500. Hemoglobin 12.9 g/dL. Platelet count 155,000, normal differential. Chemistry: sodium 136, potassium 4.4, chloride 97, CO2 of 26 mmol/L, BUN 41, creatinine 2.3 mg/dL. Random glucose 126 mg/dL. AST 79, ALT 55 units per liter. Alkaline phosphatase 125. CK 480 and 426, respectively. Troponin 0.13 and 0.17. BNP . X-ray chest June 10, 2017. Impression: New congestive changes since May 24, 2017. Echocardiogram interpretation summary: 1. The left ventricle is mildly dilated. 2. The left ventricular systolic function is severe reduced. 3. There is severe global hypokinesia of the left ventricle. 4. Linear echoic density in the right cardiac chamber compatible with ICD or pacemaker lead. 5. Borderline left atrial enlargement. 6. There is mild mitral annular calcification. 7. There is mild to moderate mitral regurgitation. 8. There is mild tricuspid regurgitation. 9. Right ventricular systolic pressure is elevated at 30 to 40 mmHg. 10. There is mild pulmonary hypertension. 11. There is mild aortic sclerosis. 12. There is no pericardial effusion seen. ECG is not available. IMPRESSION: 1. Recurring left ventricular failure related to severe left ventricular systolic dysfunction and poor compliance. 2. Coronary artery disease status post coronary artery bypass grafting, recent non-ST segment elevation myocardial infarction, status post percutaneous coronary intervention/stenting. 3. Mitral regurgitation. 4. Non-insulin dependent diabetes mellitus. 5. Chronic kidney disease. 6. Status post implantable cardioverter defibrillator for primary prophylaxis. 7. Chronic obstructive pulmonary disease. 8. Benign prostatic hypertrophy. RECOMMENDATION: 1. Patient was again counseled that it is imperative that he takes his medications as prescribed, as he would continue to have repeated episodes of left ventricular failure. 2. He was again apprised of his underlying cardiac status which includes severe left ventricular systolic dysfunction. 3. Dietary restrictions were discussed and understood. 4. Patient refuses to consider long-term use of cardiac medications. 5. Concur with current line of treatment. 6. Prognosis extremely guarded. Thank you for your referral. RADHALis [id number]
[2017-06-11] MEDS: CLOPIDOGREL BISULFATE 75 MG TABLET (FP) PO SCH ×2 (06:12→10:01)
[2017-06-11] MEDS: HEPARIN NA (PORCINE) 5,000 UNITS/ML 1ML VIAL SQ SCH ×3 (06:12→21:58)
[2017-06-11 08:23] LABS: MCH 29.4 pg (25.7-33.7); MEAN CELL VOLUME 88.9 fl (80-96); MEAN PLT VOLUME 10.2 fl (7.5-11.1); PLATELET COUNT 109 K/MM3 (134-434); RDW 15.4 % (11.9-15.9); WHITE BLOOD COUNT 4.8 K/mm3 (4.0-10.0)
[2017-06-11 08:26] LABS: INR 1.5 (0.82-1.09); PROTHROMBIN TIME (PATIENT) 16.6 SEC (9.98-11.88)
[2017-06-11 08:29] LABS: ACTIVATED PTT 23.1 SECONDS (26.9-34.4)
[2017-06-11 08:54] LABS: ALBUMIN 3.2 g/dl (3.4-5.0); ANION GAP 11 (8-16); CALCIUM 8.9 mg/dL (8.5-10.1); CO2 28 mmol/L (21-32); CREATININE 2.2 mg/dL (0.7-1.3); MAGNESIUM 2.4 mg/dL (1.8-2.4); SGOT/AST 53 U/L (15-37); SGPT/ALT 53 U/L (12-78)
[2017-06-11 08:59] LABS: ALK PHOS 119 U/L (45-117); BILIRUBIN,TOTAL 1.9 mg/dL (0.2-1.0); CHOLESTEROL 105 mg/dL (50-200); GLUCOSE,RANDOM 98 mg/dL (74-106); PHOSPHOROUS 3.8 mg/dL (2.5-4.9); TOT PROT 6.2 g/dl (6.4-8.2)
[2017-06-11] MEDS: SPIRONOLACTONE 25 MG TABLET (FP) PO SCH (09:59)
[2017-06-11] MEDS: CARVEDILOL 12.5 MG TABLET (FP) PO SCH ×2 (09:59→21:58)
[2017-06-11] MEDS: ISOSORBIDE MONONITRATE 30 MG TAB.SR.24H (FP) PO SCH (09:59)
[2017-06-11] MEDS: ASPIRIN 81 MG CHEWABLE TABLETS PO SCH (09:59)
[2017-06-11] MEDS: TAMSULOSIN HCL 0.4 MG CAP.ER.24H (FP) PO SCH (09:59)
[2017-06-11] MEDS ORDERED: SPIRONOLACTONE 25 MG TABLET (FP) PO SCH (10:00)
[2017-06-11] MEDS ORDERED: FUROSEMIDE 40 MG/4 ML INJECTABLE VIAL IVPUSH SCH ×2 (10:00→11:45)
--- NOTE | 2017-06-11 10:13 | PN ---
Progress Note, Physician History of Present Illness: pulmonary alert,feeling better,less dyspneic - Current Medication List Current Medications: Active Medications Aspirin (Asa -) 81 mg PO DAILY [facility] Last Admin: 06/11/17 09:59 Dose: 81 mg Carvedilol (Coreg -) 12.5 mg PO BID [facility] Last Admin: 06/11/17 09:59 Dose: 12.5 mg Clopidogrel Bisulfate (Plavix -) 75 mg PO AM [facility] Last Admin: 06/11/17 10:01 Dose: 75 mg Furosemide (Lasix Injection -) 40 mg IVPUSH DAILY [facility] Last Admin: 06/11/17 09:59 Dose: 40 mg Heparin Sodium (Porcine) (Heparin -) 5,000 unit SQ TID [facility] Last Admin: 06/11/17 06:12 Dose: Not Given Isosorbide Mononitrate (Imdur -) 30 mg PO DAILY [facility] Last Admin: 06/11/17 09:59 Dose: 30 mg Rosuvastatin Calcium (Crestor -) 5 mg PO [facility] Last Admin: 06/10/17 22:16 Dose: 5 mg Spironolactone (Aldactone -) 25 mg PO DAILY [facility] Last Admin: 06/11/17 09:59 Dose: 25 mg Tamsulosin HCl (Flomax -) 0.4 mg PO DAILY@0830 [facility] Last Admin: 06/11/17 09:59 Dose: 0.4 mg Trazodone HCl (Desyrel -) 50 mg PO [facility] Last Admin: 06/10/17 22:15 Dose: 50 mg - Objective Vital Signs: Vital Signs Temperature 97.8 F 06/11/17 05:49 Pulse Rate 76 06/11/17 05:49 Respiratory Rate 20 06/11/17 05:49 Blood Pressure 99/51 06/11/17 05:49 O2 Sat by Pulse Oximetry (%) 93 L 06/10/17 21:00 Constitutional: Yes: Well Nourished, Calm Eyes: Yes: WNL HENT: Yes: WNL Neck: Yes: WNL Cardiovascular: Yes: Regular Rate and Rhythm, S1, S2 Respiratory: Yes: CTA Bilaterally (bibasilar rales) Gastrointestinal: Yes: Normal Bowel Sounds, Soft Extremities: Yes: WNL Edema: Yes Labs: CBC, BMP 06/11/17 06:05 06/11/17 06:05 INR, PTT INR 1.50 (0.82-1.09) H 06/11/17 06:05 Problem List - Problems (1) CAD (coronary artery disease) Code(s): I25.10 - ATHSCL HEART DISEASE OF [place] CORONARY ARTERY W/O ANG PCTRS (2) CHF (congestive heart failure) Code(s): I50.9 - HEART FAILURE, UNSPECIFIED Qualifiers: Congestive heart failure type: unspecified congestive heart failure type Congestive heart failure chronicity: acute on chronic Qualified Code(s): I50.9 - Heart failure, unspecified (3) Hypertension Code(s): I10 - ESSENTIAL (PRIMARY) HYPERTENSION (4) Renal insufficiency Code(s): N28.9 - DISORDER OF KIDNEY AND URETER, UNSPECIFIED (5) Dyspnea on exertion Code(s): R06.09 - OTHER FORMS OF DYSPNEA (6) SOB (shortness of breath) Code(s): R06.02 - SHORTNESS OF BREATH (7) Chronic kidney disease (CKD) stage G3a/A2, moderately decreased glomerular filtration rate (GFR) between 45-59 mL/min/1.73 square meter and albuminuria creatinine ratio between 30-299 mg/g Code(s): N18.3 - CHRONIC KIDNEY DISEASE, STAGE 3 (MODERATE) Assessment/Plan IMP DYSPNEA IMPROVING ACUTE ON CHRONIC CHF SEVERE LV DYSFUNCTION ASHD S/P CABG,STENTS PULMONARY HTN HTN CKD PLAN LASIX IV PLAVIX O2 DAILY WTS INHALED BRONCHODILATORS MONITOR LYES ,RENAL FUNCTION DR ANGELA Problem List - Problems (1) CAD (coronary artery disease) Code(s): I25.10 - ATHSCL HEART DISEASE OF [place] CORONARY ARTERY W/O ANG PCTRS (2) CHF (congestive heart failure) Code(s): I50.9 - HEART FAILURE, UNSPECIFIED Qualifiers: Congestive heart failure type: unspecified congestive heart failure type Congestive heart failure chronicity: acute on chronic Qualified Code(s): I50.9 - Heart failure, unspecified (3) Hypertension Code(s): I10 - ESSENTIAL (PRIMARY) HYPERTENSION (4) Renal insufficiency Code(s): N28.9 - DISORDER OF KIDNEY AND URETER, UNSPECIFIED (5) Dyspnea on exertion Code(s): R06.09 - OTHER FORMS OF DYSPNEA (6) SOB (shortness of breath) Code(s): R06.02 - SHORTNESS OF BREATH (7) Chronic kidney disease (CKD) stage G3a/A2, moderately decreased glomerular filtration rate (GFR) between 45-59 mL/min/1.73 square meter and albuminuria creatinine ratio between 30-299 mg/g Code(s): N18.3 - CHRONIC KIDNEY DISEASE, STAGE 3 (MODERATE)
--- NOTE | 2017-06-11 14:15 | PN ---
Teaching Attending Note Name of Resident: Kelsy Red ATTENDING PHYSICIAN STATEMENT I saw and evaluated the patient. I reviewed the resident's note and discussed the case with the resident. I agree with the resident's findings and plan as documented. SUBJECTIVE: denies CP and reports improvement in SOB. no events over night OBJECTIVE: NAD , AAOX3 . HEENT: NC, AT, JVD . MMM CV: RRR, no MRG. Lungs: crackles half way down on both sides. Ext: 2+ pitting edema on both legs from knee down. recent well healing scar on medial L calf. DP 2+ ASSESSMENT AND PLAN: 87 y/o man with h/ o CAD, S/p CCABG, recent stenting, AICD placement , HTN, HL, and other medical problems who presented with worsening SOB and was found to have acute CHF exacerbation 1- Acute on chronic Systolic and diastolic CHF: due to non compliance with meds. sx and weight improved , not compliant with urine collection - increase lasix to 60 mg due to elevated cr - cont increased dose of coreg - when BP can tolerate will add ACEI or ARB - pt counseled again about meds compliance 2- h/o CKD : cr at base line 3- Transaminitis likely due to liver congestion - - monitor 4- HTN: coreg. BP on lower side. can start low dose of ACEI when BP allows 5- Elevated trop: No ischemic changes on EKG. trop trended down - cont ASA . pt cont to refuse plavix . will d/w Card substituting aggrenox DVT px HLOC
--- NOTE | 2017-06-11 14:45 | PN ---
Physical Exam: SUBJECTIVE: Patient seen and examined OBJECTIVE: Vital Signs Period Temp Pulse Resp BP Sys/العلي Pulse Ox Last 24 Hr 97.0 F-98.2 F 76-102 20-22 99-148/49-79 93-100 GENERAL: The patient is awake, alert, and fully oriented, in no acute distress. HEAD: Normal with no signs of trauma. EYES: PERRL, extraocular movements intact, sclera anicteric, conjunctiva clear. No ptosis. ENT: Ears normal, nares patent, oropharynx clear without exudates, moist mucous membranes. NECK: Trachea midline, full range of motion, supple. LUNGS: Breath sounds equal, clear to auscultation bilaterally, no wheezes, no crackles, no accessory muscle use. HEART: Regular rate and rhythm, S1, S2 without murmur, rub or gallop. ABDOMEN: Soft, nontender, nondistended, normoactive bowel sounds, no guarding, no rebound, no hepatosplenomegaly, no masses. EXTREMITIES: 2+ pulses, warm, well-perfused, no edema. NEUROLOGICAL: Cranial nerves II through XII grossly intact. Normal speech, gait not observed. PSYCH: Normal mood, normal affect. SKIN: Warm, dry, normal turgor, no rashes or lesions noted Laboratory Results - last 24 hr 06/10/17 06/10/17 06/11/17 15:37 19:43 00:02 WBC RBC Hgb Hct MCV MCH MCHC RDW Plt Count MPV INR PTT (Actin FS) Sodium Potassium Chloride Carbon Dioxide Anion Gap BUN Creatinine Creat Clearance w eGFR POC Glucometer 150 Random Glucose Hemoglobin A1c % Calcium Phosphorus Magnesium Total Bilirubin AST ALT Alkaline Phosphatase Creatine Kinase 417 H Creatine Kinase Index 1.7 CK-MB (CK-2) 7.151 H Troponin I 0.96 H* D 0.71 H* Total Protein Albumin Triglycerides Cholesterol Total LDL Cholesterol HDL Cholesterol 06/11/17 06/11/17 06/11/17 05:41 06:05 06:05 WBC 4.8 D RBC 3.74 L Hgb 11.0 L D Hct 33.3 L MCV 88.9 MCH 29.4 MCHC 33.0 RDW 15.4 Plt Count 109 L D MPV 10.2 INR PTT (Actin FS) Sodium 136 Potassium 3.8 Chloride 97 L Carbon Dioxide 28 Anion Gap 11 BUN 44 H Creatinine 2.2 H Creat Clearance w eGFR 28.45 POC Glucometer 106 Random Glucose 98 D Hemoglobin A1c % Calcium 8.9 Phosphorus 3.8 D Magnesium 2.4 Total Bilirubin 1.9 H AST 53 H D ALT 53 Alkaline Phosphatase 119 H Creatine Kinase Creatine Kinase Index CK-MB (CK-2) Troponin I Total Protein 6.2 L Albumin 3.2 L Triglycerides 67 Cholesterol 105 D Total LDL Cholesterol 58 D HDL Cholesterol 47 06/11/17 06/11/17 06:05 06:05 WBC RBC Hgb Hct MCV MCH MCHC RDW Plt Count MPV INR 1.50 H PTT (Actin FS) 23.1 L Sodium Potassium Chloride Carbon Dioxide Anion Gap BUN Creatinine Creat Clearance w eGFR POC Glucometer Random Glucose Hemoglobin A1c % 6.5 H D Calcium Phosphorus Magnesium Total Bilirubin AST ALT Alkaline Phosphatase Creatine Kinase Creatine Kinase Index CK-MB (CK-2) Troponin I Total Protein Albumin Triglycerides Cholesterol Total LDL Cholesterol HDL Cholesterol Active Medications Generic Name Dose Route Start Last Admin Trade Name Freq PRN Reason Stop Dose Admin Aspirin 81 mg 06/11/17 10:00 06/11/17 09:59 Asa - PO 81 mg DAILY [facility] Administration Carvedilol 12.5 mg 06/10/17 22:00 06/11/17 09:59 Coreg - PO 12.5 mg BID [facility] Administration Clopidogrel Bisulfate 75 mg 06/11/17 07:00 06/11/17 10:01 Plavix - PO 75 mg AM [facility] Administration Furosemide 60 mg 06/11/17 11:45 Lasix Injection - IVPUSH DAILY [facility] Heparin Sodium (Porcine) 5,000 unit 06/10/17 14:00 06/11/17 14:30 Heparin - SQ Not Given TID [facility] Isosorbide Mononitrate 30 mg 06/11/17 10:00 06/11/17 09:59 Imdur - PO 30 mg DAILY [facility] Administration Rosuvastatin Calcium 5 mg 06/10/17 22:00 06/10/17 22:16 Crestor - PO 5 mg HS [facility] Administration Spironolactone 25 mg 06/11/17 10:00 06/11/17 09:59 Aldactone - PO 25 mg DAILY [facility] Administration Tamsulosin HCl 0.4 mg 06/11/17 08:30 06/11/17 09:59 Flomax - PO 0.4 mg DAILY@0830 [facility] Administration Trazodone HCl 50 mg 06/10/17 22:00 06/10/17 22:15 Desyrel - PO 50 mg [facility] Administration ASSESSMENT/PLAN:
--- NOTE | 2017-06-11 14:53 | PN ---
Physical Exam: SUBJECTIVE: Patient seen and examined. Symptoms improved. Offers no new complaints. OBJECTIVE: Vital Signs Period Temp Pulse Resp BP Sys/العلي Pulse Ox Last 24 Hr 97.0 F-98.2 F 76-102 20-22 99-148/49-79 93-100 GENERAL: The patient is awake, alert, and fully oriented, in no acute distress. HEAD: Normal with no signs of trauma. EYES:conjunctiva clear NECK: supple. LUNGS: B/L lower lung crackles HEART: + JVD, Regular rate and rhythm, S1, S2 without murmur, rub or gallop. ABDOMEN: Soft, nontender, nondistended, normoactive bowel sounds, no guarding, no rebound, no hepatosplenomegaly, no masses. EXTREMITIES: 2+ pulses, B/L LE 2+ edema PSYCH: Normal mood, normal affect. SKIN: Warm, dry, normal turgor, no rashes or lesions noted Laboratory Results - last 24 hr 06/10/17 06/10/17 06/11/17 15:37 19:43 00:02 WBC RBC Hgb Hct MCV MCH MCHC RDW Plt Count MPV INR PTT (Actin FS) Sodium Potassium Chloride Carbon Dioxide Anion Gap BUN Creatinine Creat Clearance w eGFR POC Glucometer 150 Random Glucose Hemoglobin A1c % Calcium Phosphorus Magnesium Total Bilirubin AST ALT Alkaline Phosphatase Creatine Kinase 417 H Creatine Kinase Index 1.7 CK-MB (CK-2) 7.151 H Troponin I 0.96 H* D 0.71 H* Total Protein Albumin Triglycerides Cholesterol Total LDL Cholesterol HDL Cholesterol 06/11/17 06/11/17 06/11/17 05:41 06:05 06:05 WBC 4.8 D RBC 3.74 L Hgb 11.0 L D Hct 33.3 L MCV 88.9 MCH 29.4 MCHC 33.0 RDW 15.4 Plt Count 109 L D MPV 10.2 INR PTT (Actin FS) Sodium 136 Potassium 3.8 Chloride 97 L Carbon Dioxide 28 Anion Gap 11 BUN 44 H Creatinine 2.2 H Creat Clearance w eGFR 28.45 POC Glucometer 106 Random Glucose 98 D Hemoglobin A1c % Calcium 8.9 Phosphorus 3.8 D Magnesium 2.4 Total Bilirubin 1.9 H AST 53 H D ALT 53 Alkaline Phosphatase 119 H Creatine Kinase Creatine Kinase Index CK-MB (CK-2) Troponin I Total Protein 6.2 L Albumin 3.2 L Triglycerides 67 Cholesterol 105 D Total LDL Cholesterol 58 D HDL Cholesterol 47 06/11/17 06/11/17 06:05 06:05 WBC RBC Hgb Hct MCV MCH MCHC RDW Plt Count MPV INR 1.50 H PTT (Actin FS) 23.1 L Sodium Potassium Chloride Carbon Dioxide Anion Gap BUN Creatinine Creat Clearance w eGFR POC Glucometer Random Glucose Hemoglobin A1c % 6.5 H D Calcium Phosphorus Magnesium Total Bilirubin AST ALT Alkaline Phosphatase Creatine Kinase Creatine Kinase Index CK-MB (CK-2) Troponin I Total Protein Albumin Triglycerides Cholesterol Total LDL Cholesterol HDL Cholesterol Active Medications Generic Name Dose Route Start Last Admin Trade Name Freq PRN Reason Stop Dose Admin Aspirin 81 mg 06/11/17 10:00 06/11/17 09:59 Asa - PO 81 mg DAILY [facility] Administration Carvedilol 12.5 mg 06/10/17 22:00 06/11/17 09:59 Coreg - PO 12.5 mg BID [facility] Administration Clopidogrel Bisulfate 75 mg 06/11/17 07:00 06/11/17 10:01 Plavix - PO 75 mg AM [facility] Administration Furosemide 60 mg 06/11/17 11:45 Lasix Injection - IVPUSH DAILY [facility] Heparin Sodium (Porcine) 5,000 unit 06/10/17 14:00 06/11/17 14:30 Heparin - SQ Not Given TID [facility] Isosorbide Mononitrate 30 mg 06/11/17 10:00 06/11/17 09:59 Imdur - PO 30 mg DAILY [facility] Administration Rosuvastatin Calcium 5 mg 06/10/17 22:00 06/10/17 22:16 Crestor - PO 5 mg HS [facility] Administration Spironolactone 25 mg 06/11/17 10:00 06/11/17 09:59 Aldactone - PO 25 mg DAILY [facility] Administration Tamsulosin HCl 0.4 mg 06/11/17 08:30 06/11/17 09:59 Flomax - PO 0.4 mg DAILY@0830 [facility] Administration Trazodone HCl 50 mg 06/10/17 22:00 06/10/17 22:15 Desyrel - PO 50 mg HS [facility] Administration 87 y/o man with pmh of CAD (s/p CABG), HTN, recent stenting, who presented to the ED with worsening SOB and was found to have acute CHF exacerbation ASSESSMENT/PLAN: 1) Acute on chronic Systolic and Diastolic CHF likely from noncompliance - increased lasix to 60mg - touching base with Cards to add AceI or ARB - Noncompliant: Patient counseled about med compliance 2) History of Chronic Kidney Disease -creatinine at baseline -Gentle Hydration 3) HTN: -Continue Coreg. 4) Transaminitis: -improving -continue monitoring 5) Elevated troponins -trending down -no inschemic changes -continue aspirin Visit type - Emergency Visit Emergency Visit: Yes ED Registration Date: 06/10/17 Care time: The patient presented to the Emergency Department on the above date and was hospitalized for further evaluation of their emergent condition. - New Patient This patient is new to me today: Yes Date on this admission: 06/11/17 - Critical Care Critical Care patient: No
--- NOTE | 2017-06-11 18:39 | EKG ---
Test Reason : Blood Pressure : / mmHG Vent. Rate : 081 BPM Atrial Rate : 081 BPM P-R Int : 174 ms QRS Dur : 142 ms QT Int : 480 ms P-R-T Axes : 041 -53 151 degrees QTc Int : 557 ms NORMAL SINUS RHYTHM BASELINE ARTIFACTS POSSIBLE LEFT ATRIAL ENLARGEMENT LEFT AXIS DEVIATION LEFT BUNDLE BRANCH BLOCK ABNORMAL ECG WHEN COMPARED WITH ECG OF 10-JUN-2017 15:18, PREMATURE VENTRICULAR COMPLEXES ARE NO LONGER PRESENT T WAVE INVERSION NOW EVIDENT IN ANTERIOR LEADS QT HAS LENGTHENED Confirmed by RADHA ASIF MD ([id number]) on 06/11/2017 6:38:53 PM Referred By: Confirmed By:RADHA ASIF MD
[2017-06-11] MEDS: ROSUVASTATIN CA 5 MG TABLET (FP) PO SCH (21:59)
[2017-06-11] MEDS: traZODone HCL 50 MG TABLET (FP) PO SCH (21:59)
--- NOTE | 2017-06-12 01:03 | RAPID ---
Physical Examination Vital Signs: Vitals: 94/55, 75, 89% on 2L O2, 97% on 4L O2 Findings/Remarks: General: Patient in mild distress Heart: s1s2 RRR Lungs: Decreased breath sounds with mild crackles at b/l bases Labs: CBC, BMP 06/11/17 06:05 06/11/17 06:05 Rapid Response - Rapid Response Assessment: Rapid response called overhead. Medical team responded. Patient found by nurse to be short of breath and visibly shaking. Patient admitted for acute on chronic systolic and diastolic CHF exacerbation. Vitals were obtained as stated above. Patient satting 89% on 2L NC. Oxygen increased to 4L and patient's O2 sats increased to 97% and shortness of breath resolved. Plan: -CBC -CMP -EKG -Troponins -CXR -Will continue to monitor throughout the night and sign out to the day team.
[2017-06-12 01:56] LABS: BASOPHIL 1.2 % (0-2.0); EOSINOPHIL 3.9 % (0-4.5); MCH 29.6 pg (25.7-33.7); MEAN CELL VOLUME 89.7 fl (80-96); MEAN PLT VOLUME 11.1 fl (7.5-11.1); NEUTROPHILS 65.9 % (42.8-82.8); PLATELET COUNT 118 K/MM3 (134-434); RDW 15.7 % (11.9-15.9); WHITE BLOOD COUNT 4.7 K/mm3 (4.0-10.0)
[2017-06-12 02:19] LABS: ALBUMIN 3.4 g/dl (3.4-5.0); ANION GAP 11 (8-16); BILIRUBIN,TOTAL 1.1 mg/dL (0.2-1.0); CALCIUM 8.1 mg/dL (8.5-10.1); CO2 27 mmol/L (21-32); CREATININE 2.5 mg/dL (0.7-1.3); GLUCOSE,RANDOM 129 mg/dL (74-106); SGOT/AST 39 U/L (15-37); SGPT/ALT 49 U/L (12-78); TOT PROT 6.4 g/dl (6.4-8.2)
[2017-06-12 02:22] LABS: ALK PHOS 121 U/L (45-117); TROPONIN I 0.45 ng/ml (0.00-0.05)
[2017-06-12] MEDS: CLOPIDOGREL BISULFATE 75 MG TABLET (FP) PO SCH (06:12)
[2017-06-12] MEDS: HEPARIN NA (PORCINE) 5,000 UNITS/ML 1ML VIAL SQ SCH ×3 (06:12→22:21)
[2017-06-12 08:08] LABS: ALBUMIN 3.2 g/dl (3.4-5.0); ANION GAP 12 (8-16); CALCIUM 8.2 mg/dL (8.5-10.1); CO2 28 mmol/L (21-32); GLUCOSE,RANDOM 118 mg/dL (74-106); MAGNESIUM 2.8 mg/dL (1.8-2.4)
[2017-06-12 08:11] LABS: ALK PHOS 114 U/L (45-117); BILIRUBIN,TOTAL 1.2 mg/dL (0.2-1.0); CREATININE 2.3 mg/dL (0.7-1.3); PHOSPHOROUS 4.4 mg/dL (2.5-4.9); SGOT/AST 33 U/L (15-37); SGPT/ALT 46 U/L (12-78)
[2017-06-12] MEDS ORDERED: PT OWN MED DRAWER 7, Y5N ONE ×3 (09:40→22:15)
[2017-06-12] MEDS: CARVEDILOL 12.5 MG TABLET (FP) PO SCH ×2 (09:54→22:21)
[2017-06-12] MEDS: ASPIRIN 81 MG CHEWABLE TABLETS PO SCH (09:54)
[2017-06-12] MEDS: TAMSULOSIN HCL 0.4 MG CAP.ER.24H (FP) PO SCH (09:54)
[2017-06-12] MEDS: SPIRONOLACTONE 25 MG TABLET (FP) PO SCH (09:54)
[2017-06-12] MEDS: ISOSORBIDE MONONITRATE 30 MG TAB.SR.24H (FP) PO SCH (09:55)
--- NOTE | 2017-06-12 10:57 | PN ---
Progress Note, Physician History of Present Illness: pulmonary alert,feeling better,less dyspneic. - Current Medication List Current Medications: Active Medications Aspirin (Asa -) 81 mg PO DAILY [facility] Last Admin: 06/12/17 09:54 Dose: 81 mg Carvedilol (Coreg -) 12.5 mg PO BID [facility] Last Admin: 06/12/17 09:54 Dose: 12.5 mg Clopidogrel Bisulfate (Plavix -) 75 mg PO AM [facility] Last Admin: 06/12/17 06:12 Dose: 75 mg Furosemide (Lasix Injection -) 60 mg IVPUSH DAILY [facility] Last Admin: 06/12/17 09:55 Dose: 60 mg Heparin Sodium (Porcine) (Heparin -) 5,000 unit SQ TID [facility] Last Admin: 06/12/17 06:12 Dose: 5,000 unit Isosorbide Mononitrate (Imdur -) 30 mg PO DAILY [facility] Last Admin: 06/12/17 09:55 Dose: 30 mg Lidocaine HCl (Xylocaine 2% Viscous Oral -) 20 ml MM Q6HPO PRN PRN Reason: ORAL PAIN/MOUTH SORES Rosuvastatin Calcium (Crestor -) 5 mg PO [facility] Last Admin: 06/11/17 21:59 Dose: 5 mg Spironolactone (Aldactone -) 25 mg PO DAILY [facility] Last Admin: 06/12/17 09:54 Dose: 25 mg Tamsulosin HCl (Flomax -) 0.4 mg PO DAILY@0830 [facility] Last Admin: 06/12/17 09:54 Dose: 0.4 mg Trazodone HCl (Desyrel -) 50 mg PO [facility] Last Admin: 06/11/17 21:59 Dose: 50 mg - Objective Vital Signs: Vital Signs Temperature 98 F 06/12/17 05:50 Pulse Rate 71 06/12/17 05:50 Respiratory Rate 21 06/12/17 05:50 Blood Pressure 121/60 06/12/17 05:50 O2 Sat by Pulse Oximetry (%) 100 06/11/17 21:00 Constitutional: Yes: Calm, Thin Eyes: Yes: WNL HENT: Yes: WNL Neck: Yes: WNL Cardiovascular: Yes: Regular Rate and Rhythm, S1, S2 Respiratory: Yes: Rales (bibasilar rales) Gastrointestinal: Yes: Normal Bowel Sounds, Soft Extremities: Yes: WNL Edema: Yes Labs: CBC, BMP 06/12/17 01:11 06/12/17 05:50 INR, PTT INR 1.50 (0.82-1.09) H 06/11/17 06:05 Problem List - Problems (1) CAD (coronary artery disease) Code(s): I25.10 - ATHSCL HEART DISEASE OF [place] CORONARY ARTERY W/O ANG PCTRS (2) CHF (congestive heart failure) Code(s): I50.9 - HEART FAILURE, UNSPECIFIED Qualifiers: Congestive heart failure type: unspecified congestive heart failure type Congestive heart failure chronicity: acute on chronic Qualified Code(s): I50.9 - Heart failure, unspecified (3) Hypertension Code(s): I10 - ESSENTIAL (PRIMARY) HYPERTENSION (4) Renal insufficiency Code(s): N28.9 - DISORDER OF KIDNEY AND URETER, UNSPECIFIED (5) Dyspnea on exertion Code(s): R06.09 - OTHER FORMS OF DYSPNEA (6) SOB (shortness of breath) Code(s): R06.02 - SHORTNESS OF BREATH (7) Chronic kidney disease (CKD) stage G3a/A2, moderately decreased glomerular filtration rate (GFR) between 45-59 mL/min/1.73 square meter and albuminuria creatinine ratio between 30-299 mg/g Code(s): N18.3 - CHRONIC KIDNEY DISEASE, STAGE 3 (MODERATE) Assessment/Plan IMP DYSPNEA IMPROVING ACUTE ON CHRONIC CHF SEVERE LV DYSFUNCTION ASHD S/P CABG,STENTS PULMONARY HTN HTN CKD PLAN LASIX IV PLAVIX O2 DAILY WTS INHALED BRONCHODILATORS MONITOR LYES ,RENAL FUNCTION DR ANGELA Problem List - Problems (1) CAD (coronary artery disease) Code(s): I25.10 - ATHSCL HEART DISEASE OF [place] CORONARY ARTERY W/O ANG PCTRS (2) CHF (congestive heart failure) Code(s): I50.9 - HEART FAILURE, UNSPECIFIED Qualifiers: Congestive heart failure type: unspecified congestive heart failure type Congestive heart failure chronicity: acute on chronic Qualified Code(s): I50.9 - Heart failure, unspecified (3) Hypertension Code(s): I10 - ESSENTIAL (PRIMARY) HYPERTENSION (4) Renal insufficiency Code(s): N28.9 - DISORDER OF KIDNEY AND URETER, UNSPECIFIED (5) Dyspnea on exertion Code(s): R06.09 - OTHER FORMS OF DYSPNEA (6) SOB (shortness of breath) Code(s): R06.02 - SHORTNESS OF BREATH (7) Chronic kidney disease (CKD) stage G3a/A2, moderately decreased glomerular filtration rate (GFR) between 45-59 mL/min/1.73 square meter and albuminuria creatinine ratio between 30-299 mg/g Code(s): N18.3 - CHRONIC KIDNEY DISEASE, STAGE 3 (MODERATE)
[2017-06-12] MEDS ORDERED: ACETAMINOPHEN 325 MG TABLET (FP) PO ONE (11:13)
--- NOTE | 2017-06-12 11:16 | PN ---
Physical Exam: SUBJECTIVE: Patient seen and examined. Offers no new complaints. Still has chest pain. OBJECTIVE: Vital Signs Period Temp Pulse Resp BP Sys/العلي Pulse Ox Last 24 Hr 82 F-98.2 F 71-82 18-21 89-121/52-65 100 Rapid response was called last night. Patient had shortness of breath and visible shaking. 89% O2 Sat on 2L NC. Increased Oxygen to 4 L and O2 sat improved to 97%. GENERAL: The patient is awake, alert, and fully oriented, in no acute distress. HEAD: Normal with no signs of trauma. EYES:conjunctiva clear NECK: supple. LUNGS: B/L lower lung crackles HEART: + JVD, Regular rate and rhythm, S1, S2 without murmur, rub or gallop. ABDOMEN: Soft, nontender, nondistended, normoactive bowel sounds, no guarding, no rebound, no hepatosplenomegaly, no masses. EXTREMITIES: 2+ pulses, B/L LE 2+ edema PSYCH: Normal mood, normal affect. SKIN: Warm, dry, normal turgor, no rashes or lesions noted Laboratory Results - last 24 hr 06/11/17 06/11/17 06/11/17 06:05 15:38 21:57 WBC RBC Hgb Hct MCV MCH MCHC RDW Plt Count MPV Neutrophils % Lymphocytes % Monocytes % Eosinophils % Basophils % Sodium Potassium Chloride Carbon Dioxide Anion Gap BUN Creatinine Creat Clearance w eGFR POC Glucometer 144 136 Random Glucose Hemoglobin A1c % 6.5 H D Calcium Phosphorus Magnesium Total Bilirubin AST ALT Alkaline Phosphatase Troponin I Total Protein Albumin 06/12/17 06/12/17 06/12/17 00:53 01:00 01:11 WBC 4.7 RBC 3.67 L Hgb 10.9 L Hct 32.9 L MCV 89.7 MCH 29.6 MCHC 33.0 RDW 15.7 Plt Count 118 L MPV 11.1 Neutrophils % 65.9 Lymphocytes % 17.9 D Monocytes % 11.1 H Eosinophils % 3.9 D Basophils % 1.2 Sodium 135 L Potassium 3.7 Chloride 97 L Carbon Dioxide 27 Anion Gap 11 BUN 52 H Creatinine 2.5 H Creat Clearance w eGFR 24.55 POC Glucometer 136 Random Glucose 129 H D Hemoglobin A1c % Calcium 8.1 L Phosphorus Magnesium Total Bilirubin 1.1 H D AST 39 H D ALT 49 Alkaline Phosphatase 121 H Troponin I 0.45 H D Total Protein 6.4 Albumin 3.4 06/12/17 06/12/17 05:47 05:50 WBC RBC Hgb Hct MCV MCH MCHC RDW Plt Count MPV Neutrophils % Lymphocytes % Monocytes % Eosinophils % Basophils % Sodium 137 Potassium 4.0 Chloride 97 L Carbon Dioxide 28 Anion Gap 12 BUN 53 H Creatinine 2.3 H Creat Clearance w eGFR 27.03 POC Glucometer 125 Random Glucose 118 H Hemoglobin A1c % Calcium 8.2 L Phosphorus 4.4 Magnesium 2.8 H Total Bilirubin 1.2 H AST 33 ALT 46 Alkaline Phosphatase 114 Troponin I Total Protein 6.0 L Albumin 3.2 L Active Medications Generic Name Dose Route Start Last Admin Trade Name Freq PRN Reason Stop Dose Admin Acetaminophen 650 mg 06/12/17 11:13 Tylenol - PO 06/12/17 11:14 ONCE ONE Aspirin 81 mg 06/11/17 10:00 06/12/17 09:54 Asa - PO 81 mg DAILY [facility] Administration Carvedilol 12.5 mg 06/10/17 22:00 06/12/17 09:54 Coreg - PO 12.5 mg BID [facility] Administration Clopidogrel Bisulfate 75 mg 06/11/17 07:00 06/12/17 06:12 Plavix - PO 75 mg AM [facility] Administration Furosemide 60 mg 06/11/17 11:45 06/12/17 09:55 Lasix Injection - IVPUSH 60 mg DAILY [facility] Administration Heparin Sodium (Porcine) 5,000 unit 06/10/17 14:00 06/12/17 06:12 Heparin - SQ 5,000 unit TID [facility] Administration Isosorbide Mononitrate 30 mg 06/11/17 10:00 06/12/17 09:55 Imdur - PO 30 mg DAILY [facility] Administration Lidocaine HCl 20 ml 06/11/17 16:58 Xylocaine 2% Viscous Oral - MM Q6HPO PRN ORAL PAIN/MOUTH SORES Rosuvastatin Calcium 5 mg 06/10/17 22:00 06/11/17 21:59 Crestor - PO 5 mg HS [facility] Administration Spironolactone 25 mg 06/11/17 10:00 06/12/17 09:54 Aldactone - PO 25 mg DAILY [facility] Administration Tamsulosin HCl 0.4 mg 06/11/17 08:30 06/12/17 09:54 Flomax - PO 0.4 mg DAILY@0830 [facility] Administration Trazodone HCl 50 mg 06/10/17 22:00 06/11/17 21:59 Desyrel - PO 50 mg HS [facility] Administration ASSESSMENT/PLAN: 87 y/o man with pmh of CAD (s/p CABG), HTN, recent stenting, who presented to the ED with worsening SOB and was found to have acute CHF exacerbation ASSESSMENT/PLAN: 1) Acute on chronic Systolic and Diastolic CHF likely from noncompliance - continue lasix 60mg - Noncompliant: Patient counseled about med compliance 2) History of Chronic Kidney Disease -creatinine at baseline 3) HTN: -Continue Coreg. 4) Transaminitis: -improving -continue monitoring 5) Elevated troponins -trending down -no inschemic changes -continue aspirin FEN: NO IV fluids
--- NOTE | 2017-06-12 11:20 | PN ---
Teaching Attending Note Name of Resident: Kelsy Red ATTENDING PHYSICIAN STATEMENT I saw and evaluated the patient. I reviewed the resident's note and discussed the case with the resident. I agree with the resident's findings and plan as documented. SUBJECTIVE: Patient is feeling better but still swollen LEs with little improvements OBJECTIVE: Vital Signs Temperature 98 F 06/12/17 05:50 Pulse Rate 71 06/12/17 05:50 Respiratory Rate 21 06/12/17 05:50 Blood Pressure 121/60 06/12/17 05:50 O2 Sat by Pulse Oximetry (%) 100 06/11/17 21:00 CBCD WBC 4.7 K/mm3 (4.0-10.0) 06/12/17 01:11 RBC 3.67 M/mm3 (4.00-5.60) L 06/12/17 01:11 Hgb 10.9 GM/dL (11.7-16.9) L 06/12/17 01:11 Hct 32.9 % (35.4-49) L 06/12/17 01:11 MCV 89.7 fl (80-96) 06/12/17 01:11 MCHC 33.0 g/dl (32.0-35.9) 06/12/17 01:11 RDW 15.7 % (11.9-15.9) 06/12/17 01:11 Plt Count 118 K/MM3 (134-434) L 06/12/17 01:11 MPV 11.1 fl (7.5-11.1) 06/12/17 01:11 CMP Sodium 137 mmol/L (136-145) 06/12/17 05:50 Potassium 4.0 mmol/L (3.5-5.1) 06/12/17 05:50 Chloride 97 mmol/L (98-107) L 06/12/17 05:50 Carbon Dioxide 28 mmol/L (21-32) 06/12/17 05:50 Anion Gap 12 (8-16) 06/12/17 05:50 BUN 53 mg/dL (7-18) H 06/12/17 05:50 Creatinine 2.3 mg/dL (0.7-1.3) H 06/12/17 05:50 Creat Clearance w eGFR 27.03 (>60) 06/12/17 05:50 Random Glucose 118 mg/dL (74-106) H 06/12/17 05:50 Calcium 8.2 mg/dL (8.5-10.1) L 06/12/17 05:50 Total Bilirubin 1.2 mg/dL (0.2-1.0) H 06/12/17 05:50 AST 33 U/L (15-37) 06/12/17 05:50 ALT 46 U/L (12-78) 06/12/17 05:50 Alkaline Phosphatase 114 U/L (45-117) 06/12/17 05:50 Total Protein 6.0 g/dl (6.4-8.2) L 06/12/17 05:50 Albumin 3.2 g/dl (3.4-5.0) L 06/12/17 05:50 CARDIAC ENZYMES Creatine Kinase 417 IU/L (39-308) H 06/10/17 19:43 Troponin I 0.45 ng/ml (0.00-0.05) H D 06/12/17 01:00 Current Medications Generic Name Dose Route Start Last Admin Trade Name Freq PRN Reason Stop Dose Admin Aspirin 81 mg 06/11/17 10:00 06/12/17 09:54 Asa - PO 81 mg DAILY J[facility] Administration Carvedilol 12.5 mg 06/10/17 22:00 06/12/17 09:54 Coreg - PO 12.5 mg BID [facility] Administration Clopidogrel Bisulfate 75 mg 06/11/17 07:00 06/12/17 06:12 Plavix - PO 75 mg AM [facility] Administration Furosemide 60 mg 06/11/17 11:45 06/12/17 09:55 Lasix Injection - IVPUSH 60 mg DAILY [facility] Administration Heparin Sodium (Porcine) 5,000 unit 06/10/17 14:00 06/12/17 06:12 Heparin - SQ 5,000 unit TID [facility] Administration Isosorbide Mononitrate 30 mg 06/11/17 10:00 06/12/17 09:55 Imdur - PO 30 mg DAILY [facility] Administration Lidocaine HCl 20 ml 06/11/17 16:58 Xylocaine 2% Viscous Oral - MM Q6HPO PRN ORAL PAIN/MOUTH SORES Rosuvastatin Calcium 5 mg 06/10/17 22:00 06/11/17 21:59 Crestor - PO 5 mg HS [facility]ER[facility] Administration Spironolactone 25 mg 06/11/17 10:00 06/12/17 09:54 Aldactone - PO 25 mg DAILY [facility] Administration Tamsulosin HCl 0.4 mg 06/11/17 08:30 06/12/17 09:54 Flomax - PO 0.4 mg DAILY@0830 [facility] Administration Trazodone HCl 50 mg 06/10/17 22:00 06/11/17 21:59 Desyrel - PO 50 mg HS [facility] Administration Home Medications Medication Instructions Recorded Aspirin [ASA -] 81 mg PO DAILY #30 tab.chew 05/08/17 Clopidogrel Bisulfate [Plavix -] 75 mg PO AM 05/10/17 Furosemide [Lasix] 40 mg PO AM 05/10/17 Carvedilol 6.25 mg PO BID 05/24/17 Isosorbide Mononitrate [Imdur -] 30 mg PO DAILY 05/24/17 Metoprolol Tartrate 37.5 mg PO BID 05/24/17 Tamsulosin HCl 0.4 mg PO DAILY 05/24/17 Simvastatin 20 mg PO HS 06/10/17 Spironolactone 25 mg PO DAILY 06/10/17 Trazodone HCl 50 mg PO HS 06/10/17 ASSESSMENT AND PLAN: 87 y/o man with h/ o CAD, S/p CCABG, recent stenting, AICD placement , HTN, HL, and other medical problems who presented with worsening SOB and was found to have acute CHF exacerbation # Acute on chronic Systolic and diastolic CHF: due to non compliance with meds. daily weights, Is& Os. Lasix IV BID 60mg in am and 40mg at 2 pm on Aspirin/plavix continue. # Acute LE BL swelling on Lasix IV continue increased the dose to 2x per day . DVT px heaprin
[2017-06-12] MEDS: LIDOCAINE VISCOUS 2% ORAL/TOP 20 ML UNIT-DOSE CUP MM PRN (13:25)
--- NOTE | 2017-06-12 14:32 | PN ---
Physical Exam: SUBJECTIVE: Patient seen and examined at bedside this morning patient had rapid response called overnight for hypoxemia which resolved with nasal cannula O2 telemetry showed PVCs overnight otherwise no issues OBJECTIVE: Vital Signs Period Temp Pulse Resp BP Sys/العلي Pulse Ox Last 24 Hr 82 F-98 F 70-82 18-21 89-121/52-65 100-100 GENERAL: Awake, alert, in no acute distress. HEAD: Normal with no signs of trauma. NECK: supple LUNGS: right sided crackles left side basilar crackles otherwise left side is clear HEART: Regular rate and rhythm, normal S1 and S2 without murmur, rub or gallop. ABDOMEN: Soft, nontender, not distended, normoactive bowel sounds, no guarding, no rebound LOWER EXTREMITIES: warm, No calf tenderness. 3+ pitting edema bilaterally up to knee. LLE circumference > RLE circumference NEUROLOGICAL: Cranial nerves II-XII grossly intact. Normal speech. Laboratory Results - last 24 hr 06/11/17 06/11/17 06/12/17 15:38 21:57 00:53 WBC RBC Hgb Hct MCV MCH MCHC RDW Plt Count MPV Neutrophils % Lymphocytes % Monocytes % Eosinophils % Basophils % Sodium Potassium Chloride Carbon Dioxide Anion Gap BUN Creatinine Creat Clearance w eGFR POC Glucometer 144 136 136 Random Glucose Calcium Phosphorus Magnesium Total Bilirubin AST ALT Alkaline Phosphatase Troponin I Total Protein Albumin 06/12/17 06/12/17 06/12/17 01:00 01:11 05:47 WBC 4.7 RBC 3.67 L Hgb 10.9 L Hct 32.9 L MCV 89.7 MCH 29.6 MCHC 33.0 RDW 15.7 Plt Count 118 L MPV 11.1 Neutrophils % 65.9 Lymphocytes % 17.9 D Monocytes % 11.1 H Eosinophils % 3.9 D Basophils % 1.2 Sodium 135 L Potassium 3.7 Chloride 97 L Carbon Dioxide 27 Anion Gap 11 BUN 52 H Creatinine 2.5 H Creat Clearance w eGFR 24.55 POC Glucometer 125 Random Glucose 129 H D Calcium 8.1 L Phosphorus Magnesium Total Bilirubin 1.1 H D AST 39 H D ALT 49 Alkaline Phosphatase 121 H Troponin I 0.45 H D Total Protein 6.4 Albumin 3.4 06/12/17 06/12/17 05:50 11:42 WBC RBC Hgb Hct MCV MCH MCHC RDW Plt Count MPV Neutrophils % Lymphocytes % Monocytes % Eosinophils % Basophils % Sodium 137 Potassium 4.0 Chloride 97 L Carbon Dioxide 28 Anion Gap 12 BUN 53 H Creatinine 2.3 H Creat Clearance w eGFR 27.03 POC Glucometer 128 Random Glucose 118 H Calcium 8.2 L Phosphorus 4.4 Magnesium 2.8 H Total Bilirubin 1.2 H AST 33 ALT 46 Alkaline Phosphatase 114 Troponin I Total Protein 6.0 L Albumin 3.2 L Active Medications Generic Name Dose Route Start Last Admin Trade Name Freq PRN Reason Stop Dose Admin Aspirin 81 mg 06/11/17 10:00 06/12/17 09:54 Asa - PO 81 mg DAILY [facility] Administration Carvedilol 12.5 mg 06/10/17 22:00 06/12/17 09:54 Coreg - PO 12.5 mg BID [facility] Administration Clopidogrel Bisulfate 75 mg 06/11/17 07:00 06/12/17 06:12 Plavix - PO 75 mg AM [facility] Administration Furosemide 40 mg 06/12/17 14:00 Lasix Injection - IVPUSH DAILY@1400 [facility] Furosemide 60 mg 06/13/17 06:00 Lasix Injection - IVPUSH DAILY@0600 [facility] Heparin Sodium (Porcine) 5,000 unit 06/10/17 14:00 06/12/17 13:24 Heparin - SQ 5,000 unit TID [facility] Administration Isosorbide Mononitrate 30 mg 06/11/17 10:00 06/12/17 09:55 Imdur - PO 30 mg DAILY [facility] Administration Lidocaine HCl 20 ml 06/11/17 16:58 06/12/17 13:25 Xylocaine 2% Viscous Oral - MM 20 ml Q6HPO PRN Administration ORAL PAIN/MOUTH SORES Rosuvastatin Calcium 5 mg 06/10/17 22:00 06/11/17 21:59 Crestor - PO 5 mg HS [facility] Administration Spironolactone 25 mg 06/11/17 10:00 06/12/17 09:54 Aldactone - PO 25 mg DAILY [facility] Administration Tamsulosin HCl 0.4 mg 06/11/17 08:30 06/12/17 09:54 Flomax - PO 0.4 mg DAILY@0830 [facility] Administration Trazodone HCl 50 mg 06/10/17 22:00 06/11/17 21:59 Desyrel - PO 50 mg HS [facility] Administration ASSESSMENT/PLAN: 87M with multiple medical problems presents to the hospital with acute on chronic left sided systolic heart failure and worsening orthopnea. acute on chronic CHF left sided systolic exacerbation: likely secondary to medication non complicance vs NSTEMI. patient recently has an NSTEMI where he had a left heart cath angiogram PCI with stent and ICD placement. He has not been taking his medications since then. continue lasix 60mg IV push daily and add 40mg IV push qpm cardiology consult appreciated telemetry strict I/O daily weights-trending down spironolactone coreg 12.5 mg po BID Imdur start ALYCE/Arb when creatinine back to baseline Troponinemia: Possible NSTEMI but most likely demand ischemia from CHF exacerbation but it is also possible NSTEMI led to his current symptoms peaked at 0.9 then trended downwards likely demand vs CHF exacerbation cardiology on boards echo noted possible patient thrombosed stents as he was not taking his aspirin and plavix aspirin plavix Transaminitis:anicteric likely secondary to liver congestion from CHF exacerbation Will trend LFTs-improved CAD: see above statin Plavix aspirin HTN: coreg 12.5mg po BID IMDUR 30mg po daily hyperglycemia: fingersticks ACHS to monitor glucose values. HbA1C 6.5 patient diabetic type 2 fingersticks well controlled at this time COPD: not in acute exacerbation at this time pulmonology consult appreciated bronchodialtors PRN O2 PRN CKD: Creatinine at baseline will continue to trend and monitor BPH: restart home dose of flomax anxiety/insomnia: trazadone Pulm HTN: FEN: no IVF no electrolyte issues diabetic/sodium controlled diet PPx: HSQ no GI PPx indicated no PT consult needed patient is ambulating with a cane case discussed with Dr. hall Visit type - Emergency Visit Emergency Visit: Yes ED Registration Date: 06/10/17 Care time: The patient presented to the Emergency Department on the above date and was hospitalized for further evaluation of their emergent condition. - New Patient This patient is new to me today: No - Critical Care Critical Care patient: No
--- NOTE | 2017-06-12 15:06 | MSN ---
Progress Note (SOAP) - Subjective Chief Complaint: orthopnea, shortness of breath History of Present Illness: Patient seen at bedside. Had some shortness of breath last night, but feeling better today. Complains of chills, dry cough, dull pain in both legs, and that there is a sore in his mouth under his tongue. States that it is becoming harder to read fine print (thinks it is a side effect of his medications). States that he is compliant with his medications. Denies headache, fever, dizziness, SOB, chest pain, abdominal pain, N/V/C/D, problems urinating or passing a bowel movement. - Current Medications Current Medications: Active Medications Aspirin (Asa -) 81 mg PO DAILY [facility] Last Admin: 06/12/17 09:54 Dose: 81 mg Carvedilol (Coreg -) 12.5 mg PO BID [facility] Last Admin: 06/12/17 09:54 Dose: 12.5 mg Clopidogrel Bisulfate (Plavix -) 75 mg PO AM [facility] Last Admin: 06/12/17 06:12 Dose: 75 mg Furosemide (Lasix Injection -) 40 mg IVPUSH DAILY@1400 [facility] Furosemide (Lasix Injection -) 60 mg IVPUSH DAILY@0600 [facility] Heparin Sodium (Porcine) (Heparin -) 5,000 unit SQ TID [facility] Last Admin: 06/12/17 13:24 Dose: 5,000 unit Isosorbide Mononitrate (Imdur -) 30 mg PO DAILY [facility] Last Admin: 06/12/17 09:55 Dose: 30 mg Lidocaine HCl (Xylocaine 2% Viscous Oral -) 20 ml MM Q6HPO PRN PRN Reason: ORAL PAIN/MOUTH SORES Last Admin: 06/12/17 13:25 Dose: 20 ml Rosuvastatin Calcium (Crestor -) 5 mg PO HS [facility] Last Admin: 06/11/17 21:59 Dose: 5 mg Spironolactone (Aldactone -) 25 mg PO DAILY [facility] Last Admin: 06/12/17 09:54 Dose: 25 mg Tamsulosin HCl (Flomax -) 0.4 mg PO DAILY@0830 [facility] Last Admin: 06/12/17 09:54 Dose: 0.4 mg Trazodone HCl (Desyrel -) 50 mg PO [facility] Last Admin: 06/11/17 21:59 Dose: 50 mg - Objective Vital Signs: Vital Signs Temperature 97.5 F L 06/12/17 10:00 Pulse Rate 70 06/12/17 10:00 Respiratory Rate 20 06/12/17 10:00 Blood Pressure 104/60 06/12/17 10:00 O2 Sat by Pulse Oximetry (%) 100 06/12/17 09:00 Constitutional: Yes: Well Nourished, No Distress, Calm HENT: Yes: WNL, Atraumatic, Normocephalic, Other (small white sore under tongue , most likely from dentures) Cardiovascular: Yes: WNL, Regular Rate and Rhythm, JVD Respiratory: Yes: Other (bilateral crackles at the bases) Gastrointestinal: Yes: WNL, Normal Bowel Sounds, Soft Edema: Yes Edema: LLE: 2+, RLE: 2+ Psychiatric: Yes: WNL, Alert, Oriented Labs Lab Results: CBC, BMP 06/12/17 01:11 06/12/17 05:50 Assessment/Plan Patient is a 87 year old male with significant past medical history of CAD (s/p CABG), HTN, CHF, and recent stenting who presented to the ED with orthopnea and SOB. Was admitted for acute on chronic CHF exacerbation #acute on chronic CHF -EKG: potential LA enlargement, LBBB -CXR: cardiomegaly, no evidence of pneumonia, CHF or pneumothorax -patient has JVD, bilateral leg pitting edema and bilateral crackles at the lung bases -rapid response was called on the patient last night, he had SOB and shaking, ox sat was 89% on 2L NC, was placed on 4L NC and ox sat improved to 97% -increased lasix to 100mg PO daily (60mg at 10AM, 40mg at 2PM) -continue to give home meds -continue patient education about taking medications (patient is not compliant) -continue to monitor daily weights, I&O (patient has not been compliant about collecting his urine) #mouth sore -patient has a whie sore in his mouth, hurts him when eating -lidocaine 2% 20ml oral gel Q6H PRN -recommended taking out his dentures whenever he is not eating -told him to follow up with his dentist outpt so he can adjust his dentures, maybe ENT to r/o precancerous lesion #Diabetes -Hgb A1c 6.5% -random glucose 129 -on diabetic diet #HTN -BP 121/60 today -continue meds #CKD -creatinine of 2.5 today, baseline 2.3 -continue to monitor #FEN -fluids: none -electrolytes: WNL, monitor calcium and sodium -Nutrition: diabetic/sodium diet #prophylaxis -DVT: Heparin 5000U SQ TID -GI: none -Deconditioning: activity as tolerated #dispo -telemetry for further cardiac monitoring
[2017-06-12] MEDS: FUROSEMIDE 40 MG/4 ML INJECTABLE VIAL IVPUSH SCH (17:55)
--- NOTE | 2017-06-12 20:31 | PN ---
Progress Note (short form) - Note Progress Note: 87 year old male with H/o CAD/CABG,recent acute Lv failure,severe LV systolic dysfunction, NSTEMI,S/P PCI/stenting,S/P ICD,poor compliance. No SOB,chest pain, PND or orthonea. tolerating therapy. Active Medications Aspirin (Asa -) 81 mg PO DAILY [facility] Last Admin: 06/12/17 09:54 Dose: 81 mg Carvedilol (Coreg -) 12.5 mg PO BID [facility] Last Admin: 06/12/17 09:54 Dose: 12.5 mg Clopidogrel Bisulfate (Plavix -) 75 mg PO AM [facility] Last Admin: 06/12/17 06:12 Dose: 75 mg Furosemide (Lasix Injection -) 40 mg IVPUSH DAILY@1400 [facility] Last Admin: 06/12/17 17:55 Dose: Not Given Furosemide (Lasix Injection -) 60 mg IVPUSH DAILY@0600 [facility] Heparin Sodium (Porcine) (Heparin -) 5,000 unit SQ TID [facility] Last Admin: 06/12/17 13:24 Dose: 5,000 unit Isosorbide Mononitrate (Imdur -) 30 mg PO DAILY [facility] Last Admin: 06/12/17 09:55 Dose: 30 mg Lidocaine HCl (Xylocaine 2% Viscous Oral -) 20 ml MM Q6HPO PRN PRN Reason: ORAL PAIN/MOUTH SORES Last Admin: 06/12/17 13:25 Dose: 20 ml Rosuvastatin Calcium (Crestor -) 5 mg PO HS [facility] Last Admin: 06/11/17 21:59 Dose: 5 mg Spironolactone (Aldactone -) 25 mg PO DAILY [facility] Last Admin: 06/12/17 09:54 Dose: Not Given Tamsulosin HCl (Flomax -) 0.4 mg PO DAILY@0830 [facility] Last Admin: 06/12/17 09:54 Dose: 0.4 mg Trazodone HCl (Desyrel -) 50 mg PO HS [facility] Last Admin: 06/11/17 21:59 Dose: 50 mg 87 year old male, in no distress,no pallor,cyanosis or jaundice. Vital Signs - 8 hr 06/12/17 06/12/17 06/12/17 14:00 17:50 17:51 Temperature 98 F 97.8 F Pulse Rate 80 82 86 Respiratory 20 20 18 Rate Blood Pressure 92/52 90/52 102/54 Intake & Output 06/09/17 06/10/17 06/11/17 06/12/17 23:59 23:59 23:59 23:59 Intake Total 520 210 230 Balance 520 210 230 Weight 185 lb 4 oz 184 lb 2 oz 182 lb 2 oz NECK: Supple,no JVD, carotids2+,no bruits. HEART: PMI in the5th ICS,nomurmur or gallops heard. LUNGS: Fine creps right base. ABDOMEN: Soft, no organomegaly or masses. EXTREMITIES: 1+ edema,nocalf tenderness. CBC, BMP 06/12/17 01:11 06/12/17 05:50 A: 1.CHF,resolving 2.CAD/S/PCABG,recent NSTEMI,S/P PCI/stenting 3.Severe LV systolic dysfunction. 4.Hypertensiom. 5.Poor compliance. P: 1.Current therapy. 2.titrate coreg to 37.5mg.BID. 2. F/U Xray chest.
[2017-06-12] MEDS: traZODone HCL 50 MG TABLET (FP) PO SCH (22:21)
[2017-06-12] MEDS: ROSUVASTATIN CA 5 MG TABLET (FP) PO SCH (22:21)
[2017-06-13] MEDS: HEPARIN NA (PORCINE) 5,000 UNITS/ML 1ML VIAL SQ SCH ×3 (06:41→21:30)
[2017-06-13] MEDS: FUROSEMIDE 40 MG/4 ML INJECTABLE VIAL IVPUSH SCH ×2 (06:41→15:52)
[2017-06-13] MEDS: CLOPIDOGREL BISULFATE 75 MG TABLET (FP) PO SCH (06:41)
[2017-06-13] MEDS ORDERED: PT OWN MED DRAWER 7, Y5N ONE (08:29)
[2017-06-13 08:51] LABS: ANION GAP 11 (8-16); CALCIUM 8.8 mg/dL (8.5-10.1); CO2 27 mmol/L (21-32); CREATININE 2.6 mg/dL (0.7-1.3); GLUCOSE,RANDOM 117 mg/dL (74-106); MAGNESIUM 2.8 mg/dL (1.8-2.4); PHOSPHOROUS 4.7 mg/dL (2.5-4.9)
[2017-06-13] MEDS: CARVEDILOL 12.5 MG TABLET (FP) PO SCH (09:58)
[2017-06-13] MEDS: ISOSORBIDE MONONITRATE 30 MG TAB.SR.24H (FP) PO SCH (09:58)
[2017-06-13] MEDS: ASPIRIN 81 MG CHEWABLE TABLETS PO SCH (09:59)
[2017-06-13] MEDS: SPIRONOLACTONE 25 MG TABLET (FP) PO SCH (09:59)
[2017-06-13] MEDS ORDERED: FUROSEMIDE 40 MG/4 ML INJECTABLE VIAL IVPUSH SCH (10:00)
[2017-06-13] MEDS: TAMSULOSIN HCL 0.4 MG CAP.ER.24H (FP) PO SCH (10:01)
[2017-06-13] MEDS ORDERED: ACETAMINOPHEN 325 MG TABLET (FP) ONE (11:53)
--- NOTE | 2017-06-13 11:57 | PN ---
Progress Note (short form) - Note Progress Note: 87 year old male with H/o CAD/CABG,recent acute Lv failure,severe LV systolic dysfunction, NSTEMI,S/P PCI/stenting,S/P ICD,poor compliance. Active Medications Aspirin (Asa -) 81 mg PO DAILY [facility] Last Admin: 06/13/17 09:59 Dose: 81 mg Carvedilol (Coreg -) 12.5 mg PO BID [facility] Last Admin: 06/13/17 09:58 Dose: 12.5 mg Clopidogrel Bisulfate (Plavix -) 75 mg PO AM [facility] Last Admin: 06/13/17 06:41 Dose: 75 mg Furosemide (Lasix Injection -) 40 mg IVPUSH DAILY@1400 [facility] Last Admin: 06/12/17 17:55 Dose: Not Given Furosemide (Lasix Injection -) 60 mg IVPUSH DAILY@0600 [facility] Last Admin: 06/13/17 06:41 Dose: 60 mg Heparin Sodium (Porcine) (Heparin -) 5,000 unit SQ TID [facility] Last Admin: 06/13/17 06:41 Dose: 5,000 unit Isosorbide Mononitrate (Imdur -) 30 mg PO DAILY [facility] Last Admin: 06/13/17 09:58 Dose: 30 mg Lidocaine HCl (Xylocaine 2% Viscous Oral -) 20 ml MM Q6HPO PRN PRN Reason: ORAL PAIN/MOUTH SORES Last Admin: 06/12/17 13:25 Dose: 20 ml Rosuvastatin Calcium (Crestor -) 5 mg PO HS [facility] Last Admin: 06/12/17 22:21 Dose: 5 mg Spironolactone (Aldactone -) 25 mg PO DAILY [facility] Last Admin: 06/13/17 09:59 Dose: 25 mg Tamsulosin HCl (Flomax -) 0.4 mg PO DAILY@0830 [facility] Last Admin: 06/13/17 10:01 Dose: 0.4 mg Trazodone HCl (Desyrel -) 50 mg PO HS [facility] Last Admin: 06/12/17 22:21 Dose: 50 mg N. 87 old male in no acute distress,no pallor,cynanosis,clubbing or jaundice Vital Signs - 8 hr 06/13/17 06:00 Pulse Rate 66 Respiratory 20 Rate Blood Pressure 100/48 Intake & Output 06/10/17 06/11/17 06/12/17 06/13/17 23:59 23:59 23:59 23:59 Intake Total 520 210 710 340 Balance 520 210 710 340 Weight 185 lb 4 oz 184 lb 2 oz 182 lb 2 oz 186 lb 11.2 oz NECK: No JVD,-VE HJR,carotids 2+ no bruits heard. HEARD: PMI in the 5th ICS,S1 and S2 are normal,DUARTE grade I/ 2nd Rt. ICSNo diastolic murmur or gallops. LUNGS: Clear. ABDOMEN: Soft,nontender,no organomegaly or masses felt. EXTREMITIES: 2+ Rt.and I+ Lt.lower ext. edema.No calf tenderness. CBC, BMP 06/12/17 01:11 06/13/17 06:10 A: 1.CHF,resolving 2.CAD/S/PCABG,recent NSTEMI,S/P PCI/stenting 3.Severe LV systolic dysfunction. 4.Hypertensiom. 5.Poor compliance. P: 1.If he continues to gain weight, trial with renal dose dobutamine. 2.Titrate coreg to 37.5mg.BID. 3. F/U Xray chest.
--- NOTE | 2017-06-13 13:12 | PN ---
Progress Note, Physician History of Present Illness: PULMONARY ALERT,C/O SOB,-CP,+CHEST TIGHTNESS - Current Medication List Current Medications: Active Medications Aspirin (Asa -) 81 mg PO DAILY [facility] Last Admin: 06/13/17 09:59 Dose: 81 mg Bacitracin (Bacitracin -) 1 applic TP BID [facility] Carvedilol (Coreg -) 12.5 mg PO BID [facility] Last Admin: 06/13/17 09:58 Dose: 12.5 mg Clopidogrel Bisulfate (Plavix -) 75 mg PO AM [facility] Last Admin: 06/13/17 06:41 Dose: 75 mg Furosemide (Lasix Injection -) 40 mg IVPUSH DAILY@1400 [facility] Last Admin: 06/12/17 17:55 Dose: Not Given Furosemide (Lasix Injection -) 60 mg IVPUSH DAILY@0600 [facility] Last Admin: 06/13/17 06:41 Dose: 60 mg Heparin Sodium (Porcine) (Heparin -) 5,000 unit SQ TID [facility] Last Admin: 06/13/17 06:41 Dose: 5,000 unit Isosorbide Mononitrate (Imdur -) 30 mg PO DAILY [facility] Last Admin: 06/13/17 09:58 Dose: 30 mg Lidocaine HCl (Xylocaine 2% Viscous Oral -) 20 ml MM Q6HPO PRN PRN Reason: ORAL PAIN/MOUTH SORES Last Admin: 06/12/17 13:25 Dose: 20 ml Multi-Ingredient Ointment (Zinc Oxide) 1 applic TP BID [facility] Rosuvastatin Calcium (Crestor -) 5 mg PO HS [facility] Last Admin: 06/12/17 22:21 Dose: 5 mg Spironolactone (Aldactone -) 25 mg PO DAILY [facility] Last Admin: 06/13/17 09:59 Dose: 25 mg Tamsulosin HCl (Flomax -) 0.4 mg PO DAILY@0830 [facility] Last Admin: 06/13/17 10:01 Dose: 0.4 mg Trazodone HCl (Desyrel -) 50 mg PO HS [facility] Last Admin: 06/12/17 22:21 Dose: 50 mg - Objective Vital Signs: Vital Signs Temperature 97.5 F L 06/13/17 02:00 Pulse Rate 66 06/13/17 06:00 Respiratory Rate 20 06/13/17 06:00 Blood Pressure 100/48 06/13/17 06:00 O2 Sat by Pulse Oximetry (%) 100 06/12/17 21:00 Constitutional: Yes: Well Nourished, Calm Eyes: Yes: WNL HENT: Yes: WNL Neck: Yes: WNL Cardiovascular: Yes: Regular Rate and Rhythm, S1, S2 Respiratory: Yes: Rales (BILATERAL RALES 1/3 UP) Gastrointestinal: Yes: Normal Bowel Sounds, Soft Extremities: Yes: WNL Edema: Yes Labs: CBC, BMP 06/12/17 01:11 06/13/17 06:10 INR, PTT INR 1.50 (0.82-1.09) H 06/11/17 06:05 - ....Imaging Chest X-ray: Report Reviewed, Image Reviewed Problem List - Problems (1) CAD (coronary artery disease) Code(s): I25.10 - ATHSCL HEART DISEASE OF [place] CORONARY ARTERY W/O ANG PCTRS (2) CHF (congestive heart failure) Code(s): I50.9 - HEART FAILURE, UNSPECIFIED Qualifiers: Qualified Code(s): I50.9 - Heart failure, unspecified (3) Hypertension Code(s): I10 - ESSENTIAL (PRIMARY) HYPERTENSION (4) Renal insufficiency Code(s): N28.9 - DISORDER OF KIDNEY AND URETER, UNSPECIFIED (5) Dyspnea on exertion Code(s): R06.09 - OTHER FORMS OF DYSPNEA (6) SOB (shortness of breath) Code(s): R06.02 - SHORTNESS OF BREATH (7) Chronic kidney disease (CKD) stage G3a/A2, moderately decreased glomerular filtration rate (GFR) between 45-59 mL/min/1.73 square meter and albuminuria creatinine ratio between 30-299 mg/g Code(s): N18.3 - CHRONIC KIDNEY DISEASE, STAGE 3 (MODERATE) Assessment/Plan IMP DYSPNEA IMPROVING ACUTE ON CHRONIC CHF SEVERE LV DYSFUNCTION ASHD S/P CABG,STENTS PULMONARY HTN HTN CKD PLAN LASIX IV ALDACTONE PLAVIX O2 DAILY WTS INHALED BRONCHODILATORS MONITOR LYES ,RENAL FUNCTION DR ANGELA Problem List - Problems (1) CAD (coronary artery disease) Code(s): I25.10 - ATHSCL HEART DISEASE OF [place] CORONARY ARTERY W/O ANG PCTRS (2) CHF (congestive heart failure) Code(s): I50.9 - HEART FAILURE, UNSPECIFIED Qualifiers: Congestive heart failure type: unspecified congestive heart failure type Congestive heart failure chronicity: acute on chronic Qualified Code(s): I50.9 - Heart failure, unspecified (3) Hypertension Code(s): I10 - ESSENTIAL (PRIMARY) HYPERTENSION (4) Renal insufficiency Code(s): N28.9 - DISORDER OF KIDNEY AND URETER, UNSPECIFIED (5) Dyspnea on exertion Code(s): R06.09 - OTHER FORMS OF DYSPNEA (6) SOB (shortness of breath) Code(s): R06.02 - SHORTNESS OF BREATH (7) Chronic kidney disease (CKD) stage G3a/A2, moderately decreased glomerular filtration rate (GFR) between 45-59 mL/min/1.73 square meter and albuminuria creatinine ratio between 30-299 mg/g Code(s): N18.3 - CHRONIC KIDNEY DISEASE, STAGE 3 (MODERATE)
--- NOTE | 2017-06-13 15:49 | PN ---
Physical Exam: SUBJECTIVE: Patient seen and examined. Says he feels SOB during the night and while lying down. He also says he has buttock discomfort on sitting position. He also noted dizziness and right ear pain that has been going on for 2 weeks. He said he had a right ear infection 2 weeks ago treated with ciprofloxacin. OBJECTIVE: Vital Signs Period Temp Pulse Resp BP Sys/العلي Pulse Ox Last 24 Hr 97.4 F-98.0 F 65-102 18-20 90-107/48-69 100 GENERAL: The patient is awake, alert, and fully oriented, in no acute distress. HEAD: Normal with no signs of trauma. ENT: oral ulcer under tongue NECK: supple. LUNGS: B/L lower lung crackles HEART: + JVD, Regular rate and rhythm, S1, S2 without murmur, rub or gallop. ABDOMEN: Soft, nontender, nondistended, normoactive bowel sounds, no guarding, no rebound, no hepatosplenomegaly, no masses. EXTREMITIES: 2+ pulses, B/L LE 2+ edema PSYCH: Normal mood, normal affect. SKIN: dry, 1cm left inner buttock tear Laboratory Results - last 24 hr 06/12/17 06/13/17 06/13/17 15:45 06:10 06:37 Sodium 135 L Potassium 3.9 Chloride 97 L Carbon Dioxide 27 Anion Gap 11 BUN 61 H Creatinine 2.6 H POC Glucometer 124 119 Random Glucose 117 H Calcium 8.8 Phosphorus 4.7 Magnesium 2.8 H Active Medications Generic Name Dose Route Start Last Admin Trade Name Freq PRN Reason Stop Dose Admin Aspirin 81 mg 06/11/17 10:00 06/13/17 09:59 Asa - PO 81 mg DAILY [facility] Administration Bacitracin 1 applic 06/13/17 13:15 Bacitracin - TP BID J[facility] Carvedilol 6.25 mg 06/13/17 14:37 Coreg - PO BID JEREM[facility]AS Clopidogrel Bisulfate 75 mg 06/11/17 07:00 06/13/17 06:41 Plavix - PO 75 mg AM [facility] Administration Furosemide 40 mg 06/12/17 14:00 06/12/17 17:55 Lasix Injection - IVPUSH Not Given DAILY@1400 JEREM[facility]AS Furosemide 60 mg 06/13/17 06:00 06/13/17 06:41 Lasix Injection - IVPUSH 60 mg DAILY@0600 J[facility] Administration Heparin Sodium (Porcine) 5,000 unit 06/10/17 14:00 06/13/17 06:41 Heparin - SQ 5,000 unit TID JER[facility]AS Administration Isosorbide Mononitrate 30 mg 06/11/17 10:00 06/13/17 09:58 Imdur - PO 30 mg DAILY [facility] Administration Lidocaine HCl 20 ml 06/11/17 16:58 06/12/17 13:25 Xylocaine 2% Viscous Oral - MM 20 ml Q6HPO PRN Administration ORAL PAIN/MOUTH SORES Multi-Ingredient Ointment 1 applic 06/13/17 13:15 Zinc Oxide TP BID [facility] Rosuvastatin Calcium 5 mg 06/10/17 22:00 06/12/17 22:21 Crestor - PO 5 mg HS [facility] Administration Spironolactone 25 mg 06/11/17 10:00 06/13/17 09:59 Aldactone - PO 25 mg DAILY [facility] Administration Tamsulosin HCl 0.4 mg 06/11/17 08:30 06/13/17 10:01 Flomax - PO 0.4 mg DAILY@0830 JEREMA[facility]S Administration Trazodone HCl 50 mg 06/10/17 22:00 06/12/17 22:21 Desyrel - PO 50 mg HS [facility] Administration ASSESSMENT/PLAN: 87M with multiple medical problems presents to the hospital with acute on chronic left sided systolic heart failure and worsening orthopnea. #Acute on chronic CHF left sided systolic exacerbation: likely secondary to medication non compliance vs NSTEMI. -continue lasix 60mg IV push daily and add 40mg IV push qpm -cardiology consult appreciated: coreg dose adusted from 12.5 mg BID to 6.25mg BID. If BP remains low, will likely switch to Metoprolol XL 12.5 PO Daily -telemetry -chest x ray ordered -F/up labs in AM -spironolactone -Imdur -start ALYCE/Arb when creatinine back to baseline #Left inner buttock tear - Bacitracin TP #Dizziness and possible vertigo -ENT on board -patient recent history of otitis media #Oral ulcer: likely from dentures -Zylocaine 2% -improving -ENT on board #Troponinemia: Possible NSTEMI but most likely demand ischemia from CHF exacerbation but it is also possible NSTEMI led to his current symptoms peaked at 0.9 then trended downwards likely demand vs CHF exacerbation cardiology on boards echo noted #Transaminitis: anicteric likely secondary to liver congestion from CHF exacerbation Will trend LFTs-improved #CAD: see above statin Plavix aspirin #HTN: coreg 6.25 BID IMDUR 30mg po daily #Hyperglycemia: fingersticks ACHS to monitor glucose values. HbA1C 6.5 patient diabetic type 2 fingersticks well controlled at this time #COPD: not in acute exacerbation at this time pulmonology consult appreciated bronchodialtors PRN O2 PRN #CKD: Creatinine at baseline will continue to trend and monitor #BPH: restart home dose of flomax #Anxiety/insomnia: trazadone FEN: Not on IV Fluids no electrolyte issues diabetic/sodium controlled diet PPx: HSQ no GI PPx indicated no PT consult needed patient is ambulating with a cane Visit type - Emergency Visit Emergency Visit: Yes ED Registration Date: 06/10/17 Care time: The patient presented to the Emergency Department on the above date and was hospitalized for further evaluation of their emergent condition. - New Patient This patient is new to me today: No - Critical Care Critical Care patient: No
[2017-06-13] MEDS: ZINC OXIDE 20% TOPICAL OINTMENT 30 GM TUBE TP SCH ×2 (15:52→21:30)
[2017-06-13] MEDS: BACITRACIN 15 GM TUBE TOPICAL OINTMENT TP SCH ×2 (15:52→21:29)
[2017-06-13] MEDS ORDERED: MECLIZINE HCL 25 MG TABLET (FP) PO ONE (16:10)
--- NOTE | 2017-06-13 18:37 | PN ---
Teaching Attending Note Name of Resident: Kelsy Red ATTENDING PHYSICIAN STATEMENT I saw and evaluated the patient. I reviewed the resident's note and discussed the case with the resident. I agree with the resident's findings and plan as documented. SUBJECTIVE: Patient is comfortable , but feeling dizzy today , stated that he had an ear infection that he had to use ear drops and continues to have headache . no fever or chills. OBJECTIVE: Vital Signs Temperature 97.4 F L 06/13/17 14:00 Pulse Rate 102 H 06/13/17 14:00 Respiratory Rate 20 06/13/17 06:00 Blood Pressure 106/60 06/13/17 14:00 O2 Sat by Pulse Oximetry (%) 100 06/12/17 21:00 CBCD WBC 4.7 K/mm3 (4.0-10.0) 06/12/17 01:11 RBC 3.67 M/mm3 (4.00-5.60) L 06/12/17 01:11 Hgb 10.9 GM/dL (11.7-16.9) L 06/12/17 01:11 Hct 32.9 % (35.4-49) L 06/12/17 01:11 MCV 89.7 fl (80-96) 06/12/17 01:11 MCHC 33.0 g/dl (32.0-35.9) 06/12/17 01:11 RDW 15.7 % (11.9-15.9) 06/12/17 01:11 Plt Count 118 K/MM3 (134-434) L 06/12/17 01:11 MPV 11.1 fl (7.5-11.1) 06/12/17 01:11 CMP Sodium 135 mmol/L (136-145) L 06/13/17 06:10 Potassium 3.9 mmol/L (3.5-5.1) 06/13/17 06:10 Chloride 97 mmol/L (98-107) L 06/13/17 06:10 Carbon Dioxide 27 mmol/L (21-32) 06/13/17 06:10 Anion Gap 11 (8-16) 06/13/17 06:10 BUN 61 mg/dL (7-18) H 06/13/17 06:10 Creatinine 2.6 mg/dL (0.7-1.3) H 06/13/17 06:10 Creat Clearance w eGFR 27.03 (>60) 06/12/17 05:50 Random Glucose 117 mg/dL (74-106) H 06/13/17 06:10 Calcium 8.8 mg/dL (8.5-10.1) 06/13/17 06:10 Total Bilirubin 1.2 mg/dL (0.2-1.0) H 06/12/17 05:50 AST 33 U/L (15-37) 06/12/17 05:50 ALT 46 U/L (12-78) 06/12/17 05:50 Alkaline Phosphatase 114 U/L (45-117) 06/12/17 05:50 Total Protein 6.0 g/dl (6.4-8.2) L 06/12/17 05:50 Albumin 3.2 g/dl (3.4-5.0) L 06/12/17 05:50 CARDIAC ENZYMES Creatine Kinase 417 IU/L (39-308) H 06/10/17 19:43 Troponin I 0.45 ng/ml (0.00-0.05) H D 06/12/17 01:00 Current Medications Generic Name Dose Route Start Last Admin Trade Name Freq PRN Reason Stop Dose Admin Aspirin 81 mg 06/11/17 10:00 06/13/17 09:59 Asa - PO 81 mg DAILY [facility] Administration Bacitracin 1 applic 06/13/17 13:15 06/13/17 15:52 Bacitracin - TP Not Given BID [facility] Carvedilol 6.25 mg 06/13/17 14:37 Coreg - PO BID [facility] Clopidogrel Bisulfate 75 mg 06/11/17 07:00 06/13/17 06:41 Plavix - PO 75 mg AM [facility] Administration Furosemide 40 mg 06/12/17 14:00 06/13/17 15:52 Lasix Injection - IVPUSH 40 mg DAILY@1400 JEREMÍAS Administration Furosemide 60 mg 06/13/17 06:00 06/13/17 06:41 Lasix Injection - IVPUSH 60 mg DAILY@0600 [facility] Administration Heparin Sodium (Porcine) 5,000 unit 06/10/17 14:00 06/13/17 14:51 Heparin - SQ 5,000 unit TID [facility] Administration Isosorbide Mononitrate 30 mg 06/11/17 10:00 06/13/17 09:58 Imdur - PO 30 mg DAILY [facility] Administration Lidocaine HCl 20 ml 06/11/17 16:58 06/12/17 13:25 Xylocaine 2% Viscous Oral - MM 20 ml Q6HPO PRN Administration ORAL PAIN/MOUTH SORES Multi-Ingredient Ointment 1 applic 06/13/17 13:15 06/13/17 15:52 Zinc Oxide TP Not Given BID [facility] Rosuvastatin Calcium 5 mg 06/10/17 22:00 06/12/17 22:21 Crestor - PO 5 mg HS [facility] Administration Spironolactone 25 mg 06/11/17 10:00 06/13/17 09:59 Aldactone - PO 25 mg DAILY [facility] Administration Tamsulosin HCl 0.4 mg 06/11/17 08:30 06/13/17 10:01 Flomax - PO 0.4 mg DAILY@0830 JER[facility]AS Administration Trazodone HCl 50 mg 06/10/17 22:00 06/12/17 22:21 Desyrel - PO 50 mg HS [facility] Administration Home Medications Medication Instructions Recorded Aspirin [ASA -] 81 mg PO DAILY #30 tab.chew 05/08/17 Clopidogrel Bisulfate [Plavix -] 75 mg PO AM 05/10/17 Furosemide [Lasix] 40 mg PO AM 05/10/17 Carvedilol 6.25 mg PO BID 05/24/17 Isosorbide Mononitrate [Imdur -] 30 mg PO DAILY 05/24/17 Metoprolol Tartrate 37.5 mg PO BID 05/24/17 Tamsulosin HCl 0.4 mg PO DAILY 05/24/17 Simvastatin 20 mg PO HS 06/10/17 Spironolactone 25 mg PO DAILY 06/10/17 Trazodone HCl 50 mg PO HS 06/10/17 PE: Ears: BL hearing aid LE slight improvements of LEs BL 3 plus edema rest as per resident's note. ASSESSMENT AND PLAN: 87 y/o man with h/ o CAD, S/p CCABG, recent stenting, AICD placement , HTN, HL, and other medical problems who presented with worsening SOB and was found to have acute CHF exacerbation # Acute dizziness with c/o having congestion like headache that was getting treated with ear drops , patient has bl hearing aid, will get ENT to evaluate the patient. # Acute on chronic Systolic and diastolic CHF: due to non compliance with meds. daily weights, Is& Os. Lasix IV BID 60mg in am and 40mg at 2 pm on Aspirin/plavix continue. # Acute LE BL swelling on Lasix IV increased the dose to 2x per day . DVT px heaprin
[2017-06-13] MEDS: traZODone HCL 50 MG TABLET (FP) PO SCH (21:30)
[2017-06-13] MEDS: CARVEDILOL 6.25 MG TABLET (FP) PO SCH (21:30)
[2017-06-13] MEDS: ROSUVASTATIN CA 5 MG TABLET (FP) PO SCH (21:42)
[2017-06-14] MEDS: HEPARIN NA (PORCINE) 5,000 UNITS/ML 1ML VIAL SQ SCH ×3 (06:30→22:07)
[2017-06-14] MEDS: FUROSEMIDE 40 MG/4 ML INJECTABLE VIAL IVPUSH SCH (06:31)
[2017-06-14] MEDS: CLOPIDOGREL BISULFATE 75 MG TABLET (FP) PO SCH (06:32)
[2017-06-14 08:36] LABS: ANION GAP 13 (8-16); CALCIUM 8.5 mg/dL (8.5-10.1); CO2 26 mmol/L (21-32); GLUCOSE,RANDOM 121 mg/dL (74-106); PHOSPHOROUS 5.2 mg/dL (2.5-4.9)
[2017-06-14 08:38] LABS: CREATININE 3.1 mg/dL (0.7-1.3); MAGNESIUM 2.7 mg/dL (1.8-2.4)
--- NOTE | 2017-06-14 08:43 | PN ---
Physical Exam: SUBJECTIVE: Patient seen and examined. He still feels SOB during the night and while laying down but his symptoms improved compared to yesterday. OBJECTIVE: Vital Signs Period Temp Pulse Resp BP Sys/العلي Pulse Ox Last 24 Hr 97.3 F-98.7 F 62-102 18-18 91-112/54-70 99 GENERAL: The patient is awake, alert, and fully oriented, in no acute distress. HEAD: Normal with no signs of trauma. ENT: oral ulcer under tongue NECK: supple. LUNGS: B/L lower lung crackles HEART: + JVD, Regular rate and rhythm, S1, S2 without murmur, rub or gallop. ABDOMEN: Soft, nontender, nondistended, normoactive bowel sounds, no guarding, no rebound, no hepatosplenomegaly, no masses. EXTREMITIES: 2+ pulses, B/L LE 2+ edema PSYCH: Normal mood, normal affect. SKIN: dry, 1cm left inner buttock tear Laboratory Results - last 24 hr 06/13/17 06/13/17 06/14/17 06:10 21:28 05:57 Sodium 135 L Potassium 3.9 Chloride 97 L Carbon Dioxide 27 Anion Gap 11 BUN 61 H Creatinine 2.6 H POC Glucometer 141 132 Random Glucose 117 H Calcium 8.8 Phosphorus 4.7 Magnesium 2.8 H Active Medications Generic Name Dose Route Start Last Admin Trade Name Yovaniq PRN Reason Stop Dose Admin Aspirin 81 mg 06/11/17 10:00 06/13/17 09:59 Asa - PO 81 mg DAILY [facility] Administration Bacitracin 1 applic 06/13/17 13:15 06/13/17 21:29 Bacitracin - TP 1 applic BID [facility] Administration Carvedilol 6.25 mg 06/13/17 14:37 06/13/17 21:30 Coreg - PO 6.25 mg BID [facility] Administration Clopidogrel Bisulfate 75 mg 06/11/17 07:00 06/14/17 06:32 Plavix - PO 75 mg AM [facility]AS Administration Furosemide 40 mg 06/12/17 14:00 06/13/17 15:52 Lasix Injection - IVPUSH 40 mg DAILY@1400 JEREMÍAS Administration Furosemide 60 mg 06/13/17 06:00 06/14/17 06:31 Lasix Injection - IVPUSH 60 mg DAILY@0600 JEREMÍAS Administration Heparin Sodium (Porcine) 5,000 unit 06/10/17 14:00 06/14/17 06:30 Heparin - SQ 5,000 unit TID [facility]AS Administration Isosorbide Mononitrate 30 mg 06/11/17 10:00 06/13/17 09:58 Imdur - PO 30 mg DAILY [facility] Administration Lidocaine HCl 20 ml 06/11/17 16:58 06/12/17 13:25 Xylocaine 2% Viscous Oral - MM 20 ml Q6HPO PRN Administration ORAL PAIN/MOUTH SORES Multi-Ingredient Ointment 1 applic 06/13/17 13:15 06/13/17 21:30 Zinc Oxide TP 1 applic BID [facility] Administration Rosuvastatin Calcium 5 mg 06/10/17 22:00 06/13/17 21:42 Crestor - PO Not Given HS [facility] Spironolactone 25 mg 06/11/17 10:00 06/13/17 09:59 Aldactone - PO 25 mg DAILY [facility] Administration Tamsulosin HCl 0.4 mg 06/11/17 08:30 06/13/17 10:01 Flomax - PO 0.4 mg DAILY@0830 JER[facility]ÍAS Administration Trazodone HCl 50 mg 06/10/17 22:00 06/13/17 21:30 Desyrel - PO 50 mg HS [facility] Administration 06/14 CXR: no evidence of pneumonia, CHF, pneumothorax ASSESSMENT/PLAN: 87M with multiple medical problems presents to the hospital with acute on chronic left sided systolic heart failure and worsening orthopnea. #Acute on chronic CHF left sided systolic exacerbation: likely secondary to medication non compliance vs NSTEMI. -continue lasix 60mg IV push daily and add 40mg IV push qpm -cardiology consult appreciated: coreg dose adusted from 12.5 mg BID to 6.25mg BID. If BP remains low, will likely switch to Metoprolol XL 12.5 PO Daily -telemetry -F/up labs in AM -spironolactone -Imdur -start ALYCE/Arb when creatinine back to baseline #Acute on Chronic Renal insuffiency in setting of CHF/Volume overload -Likely EDITA due to renal hypoprofusion in setting of CHF and transient intravascular volume depletion with IV diuretics as per Nephrology -Ordered Urine for FeUrea and Urine protein to creatine ratio -consider starting dobutamine drip to maintain systemic perfusion and preserve end-organ performance as per nephro #Left inner buttock tear - Bacitracin TP #Urinary Retention -Newberry placed as per nephro #Anxiety -Xanax .125mg Q8 prn for anxiety attacks #Dizziness and possible vertigo -ENT on board -patient recent history of otitis media #Oral ulcer: likely from dentures -Zylocaine 2% -improving -ENT on board #Troponinemia: Possible NSTEMI but most likely demand ischemia from CHF exacerbation but it is also possible NSTEMI led to his current symptoms peaked at 0.9 then trended downwards likely demand vs CHF exacerbation cardiology on boards echo noted #Transaminitis: anicteric likely secondary to liver congestion from CHF exacerbation Will trend LFTs-improved #CAD: see above statin Plavix aspirin #HTN: coreg 6.25 BID IMDUR 30mg po daily #Hyperglycemia: fingersticks ACHS to monitor glucose values. HbA1C 6.5 patient diabetic type 2 fingersticks well controlled at this time #COPD: not in acute exacerbation at this time pulmonology consult appreciated bronchodialtors PRN O2 PRN #CKD: Creatinine at baseline will continue to trend and monitor #BPH: restart home dose of flomax #Insomnia: trazadone FEN: Not on IV Fluids no electrolyte issues diabetic/sodium controlled diet PPx: HSQ no GI PPx indicated no PT consult needed patient is ambulating with a cane Visit type - Emergency Visit Emergency Visit: Yes ED Registration Date: 06/10/17 Care time: The patient presented to the Emergency Department on the above date and was hospitalized for further evaluation of their emergent condition. - New Patient This patient is new to me today: No - Critical Care Critical Care patient: No
[2017-06-14] MEDS: ISOSORBIDE MONONITRATE 30 MG TAB.SR.24H (FP) PO SCH (10:52)
[2017-06-14] MEDS: SPIRONOLACTONE 25 MG TABLET (FP) PO SCH (10:52)
[2017-06-14] MEDS: TAMSULOSIN HCL 0.4 MG CAP.ER.24H (FP) PO SCH (10:53)
[2017-06-14] MEDS: CARVEDILOL 6.25 MG TABLET (FP) PO SCH ×2 (10:53→22:08)
[2017-06-14] MEDS: ZINC OXIDE 20% TOPICAL OINTMENT 30 GM TUBE TP SCH ×2 (10:55→22:08)
[2017-06-14] MEDS: BACITRACIN 15 GM TUBE TOPICAL OINTMENT TP SCH ×2 (10:55→22:08)
[2017-06-14] MEDS: ASPIRIN 81 MG CHEWABLE TABLETS PO SCH (10:55)
--- NOTE | 2017-06-14 13:20 | PN ---
Progress Note, Physician History of Present Illness: PULMONARY ALERT,OOB-CHAIR,LESS DYSPNEIC,WEAK,ANXIOUS - Current Medication List Current Medications: Active Medications Aspirin (Asa -) 81 mg PO DAILY [facility] Last Admin: 06/14/17 10:55 Dose: 81 mg Bacitracin (Bacitracin -) 1 applic TP BID [facility] Last Admin: 06/14/17 10:55 Dose: 1 applic Carvedilol (Coreg -) 6.25 mg PO BID [facility] Last Admin: 06/14/17 10:53 Dose: 6.25 mg Clopidogrel Bisulfate (Plavix -) 75 mg PO AM [facility] Last Admin: 06/14/17 06:32 Dose: 75 mg Furosemide (Lasix Injection -) 60 mg IVPUSH DAILY@0600 [facility] Last Admin: 06/14/17 06:31 Dose: 60 mg Heparin Sodium (Porcine) (Heparin -) 5,000 unit SQ TID [facility] Last Admin: 06/14/17 06:30 Dose: 5,000 unit Isosorbide Mononitrate (Imdur -) 30 mg PO DAILY [facility] Last Admin: 06/14/17 10:52 Dose: 30 mg Lidocaine HCl (Xylocaine 2% Viscous Oral -) 20 ml MM Q6HPO PRN PRN Reason: ORAL PAIN/MOUTH SORES Last Admin: 06/12/17 13:25 Dose: 20 ml Multi-Ingredient Ointment (Zinc Oxide) 1 applic TP BID [facility] Last Admin: 06/14/17 10:55 Dose: 1 applic Rosuvastatin Calcium (Crestor -) 5 mg PO HS [facility] Last Admin: 06/13/17 21:42 Dose: Not Given Spironolactone (Aldactone -) 12.5 mg PO DAILY [facility] Tamsulosin HCl (Flomax -) 0.4 mg PO DAILY@0830 [facility] Last Admin: 06/14/17 10:53 Dose: 0.4 mg Trazodone HCl (Desyrel -) 50 mg PO HS [facility] Last Admin: 06/13/17 21:30 Dose: 50 mg - Objective Vital Signs: Vital Signs Temperature 97.7 F 06/14/17 06:00 Pulse Rate 62 06/14/17 06:00 Respiratory Rate 18 06/14/17 06:00 Blood Pressure 112/70 06/14/17 06:00 O2 Sat by Pulse Oximetry (%) 99 06/13/17 21:00 Constitutional: Yes: Well Nourished, Calm Eyes: Yes: WNL HENT: Yes: WNL Neck: Yes: WNL Cardiovascular: Yes: Pulse Irregular, S1, S2 Respiratory: Yes: Rales (BILATERAL RALES 1/3 UP) Gastrointestinal: Yes: Normal Bowel Sounds, Soft Extremities: Yes: WNL Edema: Yes Labs: CBC, BMP 06/12/17 01:11 06/14/17 06:00 INR, PTT INR 1.50 (0.82-1.09) H 06/11/17 06:05 Problem List - Problems (1) CAD (coronary artery disease) Code(s): I25.10 - ATHSCL HEART DISEASE OF [place] CORONARY ARTERY W/O ANG PCTRS (2) CHF (congestive heart failure) Code(s): I50.9 - HEART FAILURE, UNSPECIFIED Qualifiers: Qualified Code(s): I50.9 - Heart failure, unspecified (3) Hypertension Code(s): I10 - ESSENTIAL (PRIMARY) HYPERTENSION (4) Renal insufficiency Code(s): N28.9 - DISORDER OF KIDNEY AND URETER, UNSPECIFIED (5) Dyspnea on exertion Code(s): R06.09 - OTHER FORMS OF DYSPNEA (6) SOB (shortness of breath) Code(s): R06.02 - SHORTNESS OF BREATH (7) Chronic kidney disease (CKD) stage G3a/A2, moderately decreased glomerular filtration rate (GFR) between 45-59 mL/min/1.73 square meter and albuminuria creatinine ratio between 30-299 mg/g Code(s): N18.3 - CHRONIC KIDNEY DISEASE, STAGE 3 (MODERATE) Assessment/Plan IMP DYSPNEA IMPROVING ACUTE ON CHRONIC CHF SEVERE LV DYSFUNCTION ASHD S/P CABG,STENTS PULMONARY HTN HTN CKD PLAN LASIX IV ALDACTONE PLAVIX O2 DAILY WTS INHALED BRONCHODILATORS MONITOR LYES ,RENAL FUNCTION VANNESA ANGELA Problem List - Problems (1) CAD (coronary artery disease) Code(s): I25.10 - ATHSCL HEART DISEASE OF [place] CORONARY ARTERY W/O ANG PCTRS (2) CHF (congestive heart failure) Code(s): I50.9 - HEART FAILURE, UNSPECIFIED Qualifiers: Congestive heart failure type: unspecified congestive heart failure type Congestive heart failure chronicity: acute on chronic Qualified Code(s): I50.9 - Heart failure, unspecified (3) Hypertension Code(s): I10 - ESSENTIAL (PRIMARY) HYPERTENSION (4) Renal insufficiency Code(s): N28.9 - DISORDER OF KIDNEY AND URETER, UNSPECIFIED (5) Dyspnea on exertion Code(s): R06.09 - OTHER FORMS OF DYSPNEA (6) SOB (shortness of breath) Code(s): R06.02 - SHORTNESS OF BREATH (7) Chronic kidney disease (CKD) stage G3a/A2, moderately decreased glomerular filtration rate (GFR) between 45-59 mL/min/1.73 square meter and albuminuria creatinine ratio between 30-299 mg/g Code(s): N18.3 - CHRONIC KIDNEY DISEASE, STAGE 3 (MODERATE)
[2017-06-14] MEDS: ALPRAZolam 0.25 MG TABLET PO PRN (13:29)
[2017-06-14 13:41] VITALS: BMI 29.2
--- NOTE | 2017-06-14 13:41 | CON.NEP ---
Consult Consult Specialty:: Nephrology (Kanu/Fady) Referred by:: Dr. Diaz Reason for Consultation:: EDITA on CKD with volume overload - History of Present Illness Chief Complaint: SOB and LE edema History of Present Illness: This is a 87 year old gentleman with PMhx of CAD s/p CABG, recent NSTEMI with Cardiac cath with PCI, CHF with AICD, Hypertension, COPD, CKD with baseline Cr of 1.6 to 2 presents with complaints of LE swelling and SOB and found to have CHF exacerbation with concurrent EDITA Cr 2.3-3.1. Pt s/p cardiac cath the first week of may. Reports some urinary hesitancy. Denies any NSIAD use. NO ALYCE or ARB but is on aldactone for CHF. No fever, chills, N/V/D. on IV diuretics. No DVT in LE. - History Source History Provided By: Patient Limitations to Obtaining History: No Limitations - Past Medical History FINISHER PLATE: Yes: Vertigo Cardio/Vascular: Yes: CAD, CHF, HTN, Hyperlipdemia Pulmonary: Yes: COPD Renal/: Yes: Renal Inusuff - Past Surgical History Past Surgical History: Yes: CABG - Alcohol/Substance Use Hx Alcohol Use: No - Smoking History Smoking history: Former smoker Have you smoked in the past 12 months: No Aproximately how many cigarettes per day: 0 If you are a former smoker, when did you quit?: 1960 Home Medications - Allergies Allergies/Adverse Reactions: Allergies Allergy/AdvReac Type Severity Reaction Status Date / Time amoxicillin trihydrate AdvReac Mild gi upset Verified 06/09/17 08:50 [From Augmentin] atorvastatin calcium AdvReac Mild gi upset Verified 06/09/17 08:50 [From Lipitor] potassium clavulanate AdvReac Mild gi upset Verified 06/09/17 08:50 [From Augmentin] - Home Medications Home Medications: Ambulatory Orders Aspirin [ASA -] 81 mg PO DAILY #30 tab.chew 05/08/17 Clopidogrel Bisulfate [Plavix -] 75 mg PO AM 05/10/17 Furosemide [Lasix] 40 mg PO AM 05/10/17 Carvedilol 6.25 mg PO BID 05/24/17 Isosorbide Mononitrate [Imdur -] 30 mg PO DAILY 05/24/17 Metoprolol Tartrate 37.5 mg PO BID 05/24/17 Tamsulosin HCl 0.4 mg PO DAILY 05/24/17 Simvastatin 20 mg PO HS 06/10/17 Spironolactone 25 mg PO DAILY 06/10/17 Trazodone HCl 50 mg PO HS 06/10/17 Family Disease History - Family Disease History Family History: Unremarkable Review of Systems - Review of Systems Constitutional: reports: Weakness Eyes: reports: No Symptoms HENT: reports: No Symptoms Neck: reports: No Symptoms Cardiovascular: reports: Edema, Shortness of Breath. denies: Chest Pain, Palpitations Respiratory: reports: Cough, Exercise Intolerance, Orthopnea, SOB, SOB on Exertion. denies: PND Gastrointestinal: reports: No Symptoms Genitourinary: denies: Burning, Dysuria, Flank Pain Integumentary: reports: No Symptoms Neurological: denies: Confusion, Syncope Endocrine: reports: No Symptoms Nephrology Consult - Height Height: 5 ft 7 in - Weight Weight: 186 lb 11.2 oz - BMI Body Mass Index (BMI): 29.2 - Lab Results CBC,BMP: CBC, BMP 06/12/17 01:11 06/14/17 06:00 Anion Gap: Anion Gap Anion Gap 13 (8-16) 06/14/17 06:00 - Imaging Chest X-ray: Report Reviewed - Physical Examination Vital Signs: Vital Signs Temperature 97.7 F 06/14/17 06:00 Pulse Rate 62 06/14/17 06:00 Respiratory Rate 18 06/14/17 06:00 Blood Pressure 112/70 06/14/17 06:00 O2 Sat by Pulse Oximetry (%) 99 06/13/17 21:00 Constitutional: Yes: No Distress, Calm Eyes: Yes: Conjunctiva Clear HENT: Yes: Atraumatic Neck: Yes: Supple Cardiovascular: Yes: Regular Rate and Rhythm Respiratory: Yes: Regular, Rales Gastrointestinal: Yes: Normal Bowel Sounds, Soft. No: Tenderness Renal/: No: Anuria, Bladder Distention, CVA Tenderness - Left, CVA Tenderness - Right, [place] Present Extremities: No: Cold, Cool, Cyanosis Edema: LLE: 3+, RLE: 3+ Neurological: Yes: Alert, Oriented Assessment/Plan 87 year old gentleman with PMhx of CAD s/p CABG, recent NSTEMI with Cardiac cath with PCI, CHF with AICD, Hypertension, COPD, CKD with baseline Cr of 1.6 to 2 presents with complaints of LE swelling and SOB and found to have CHF exacerbation with concurrent EDITA Cr 2.3-3.1. #Acute on Chronic Renal insuffiency in setting of CHF/Volume overload Likely etiology of EDITA is renal hypoprofusion in setting of CHF and transient intravascular volume depletion with IV diuretics vs CINTHIA from contrast exposure from cardiac cath (less likely) Check Urine for FeUrea, UPCR (no proteinuria seen on UA) Would continue IV lasix BID consider starting dobutamine gtt to maintain systemic perfusion and preserve end -organ performance Would not start ALYCE/ARB can continue aldactone but trend serum K levels #CHF Exacerbation Cardiology following diuretic as tolerated consider start dobutamine gtt if ok with cardiology #CAD s/p recent PCI and and AICD #Hx of Hypertension BP now marginal titrate Coreg as needed to maintain a reasonable BP #Anemia Likely due to chronic disease no need for transfusion at this time Thank you Will follow Lobo Shrestha DO
[2017-06-14] MEDS: CIPROFLOXACIN HCL 0.3% OPHTH 2.5ML BOTTLE NR SCH ×3 (15:00→22:13)
[2017-06-14] MEDS ORDERED: ACETAMINOPHEN 325 MG TABLET (FP) ONE (15:01)
--- NOTE | 2017-06-14 17:46 | PN ---
Teaching Attending Note Name of Resident: Kelsy Red ATTENDING PHYSICIAN STATEMENT I saw and evaluated the patient. I reviewed the resident's note and discussed the case with the resident. I agree with the resident's findings and plan as documented. SUBJECTIVE: Patient is better butr still having swelling of his legs without much improvements. OBJECTIVE: Vital Signs Temperature 97.7 F 06/14/17 14:00 Pulse Rate 66 06/14/17 14:00 Respiratory Rate 20 06/14/17 14:00 Blood Pressure 95/54 06/14/17 14:00 O2 Sat by Pulse Oximetry (%) 97 06/14/17 09:00 CBCD WBC 4.7 K/mm3 (4.0-10.0) 06/12/17 01:11 RBC 3.67 M/mm3 (4.00-5.60) L 06/12/17 01:11 Hgb 10.9 GM/dL (11.7-16.9) L 06/12/17 01:11 Hct 32.9 % (35.4-49) L 06/12/17 01:11 MCV 89.7 fl (80-96) 06/12/17 01:11 MCHC 33.0 g/dl (32.0-35.9) 06/12/17 01:11 RDW 15.7 % (11.9-15.9) 06/12/17 01:11 Plt Count 118 K/MM3 (134-434) L 06/12/17 01:11 MPV 11.1 fl (7.5-11.1) 06/12/17 01:11 CMP Sodium 135 mmol/L (136-145) L 06/14/17 06:00 Potassium 4.2 mmol/L (3.5-5.1) 06/14/17 06:00 Chloride 96 mmol/L (98-107) L 06/14/17 06:00 Carbon Dioxide 26 mmol/L (21-32) 06/14/17 06:00 Anion Gap 13 (8-16) 06/14/17 06:00 BUN 72 mg/dL (7-18) H 06/14/17 06:00 Creatinine 3.1 mg/dL (0.7-1.3) H 06/14/17 06:00 Creat Clearance w eGFR 27.03 (>60) 06/12/17 05:50 Random Glucose 121 mg/dL (74-106) H 06/14/17 06:00 Calcium 8.5 mg/dL (8.5-10.1) 06/14/17 06:00 Total Bilirubin 1.2 mg/dL (0.2-1.0) H 06/12/17 05:50 AST 33 U/L (15-37) 06/12/17 05:50 ALT 46 U/L (12-78) 06/12/17 05:50 Alkaline Phosphatase 114 U/L (45-117) 06/12/17 05:50 Total Protein 6.0 g/dl (6.4-8.2) L 06/12/17 05:50 Albumin 3.2 g/dl (3.4-5.0) L 06/12/17 05:50 CARDIAC ENZYMES Creatine Kinase 417 IU/L (39-308) H 06/10/17 19:43 Troponin I 0.45 ng/ml (0.00-0.05) H D 06/12/17 01:00 Current Medications Generic Name Dose Route Start Last Admin Trade Name Freq PRN Reason Stop Dose Admin Alprazolam 0.125 mg 06/14/17 13:20 06/14/17 13:29 Xanax - PO 0.125 mg Q8H PRN Administration ANXIETY Aspirin 81 mg 06/11/17 10:00 06/14/17 10:55 Asa - PO 81 mg DAILY JEREMÍAS Administration Bacitracin 1 applic 06/13/17 13:15 06/14/17 10:55 Bacitracin - TP 1 applic BID JEREMÍAS Administration Carvedilol 6.25 mg 06/13/17 14:37 06/14/17 10:53 Coreg - PO 6.25 mg BID JEREMÍAS Administration Ciprofloxacin 4 drop 06/14/17 15:00 06/14/17 15:00 Ciloxan 0.3% Eye Drops - NR Not Given BID JEREMÍAS Clopidogrel Bisulfate 75 mg 06/11/17 07:00 06/14/17 06:32 Plavix - PO 75 mg AM JEREMÍAS Administration Furosemide 60 mg 06/13/17 06:00 06/14/17 06:31 Lasix Injection - IVPUSH 60 mg DAILY@0600 JEREMÍAS Administration Heparin Sodium (Porcine) 5,000 unit 06/10/17 14:00 06/14/17 15:42 Heparin - SQ Not Given TID [facility] Isosorbide Mononitrate 30 mg 06/11/17 10:00 06/14/17 10:52 Imdur - PO 30 mg DAILY JEREMÍAS Administration Lidocaine HCl 20 ml 06/11/17 16:58 06/12/17 13:25 Xylocaine 2% Viscous Oral - MM 20 ml Q6HPO PRN Administration ORAL PAIN/MOUTH SORES Multi-Ingredient Ointment 1 applic 06/13/17 13:15 06/14/17 10:55 Zinc Oxide TP 1 applic BID JEREMÍAS Administration Rosuvastatin Calcium 5 mg 06/10/17 22:00 06/13/17 21:42 Crestor - PO Not Given HS [facility] Spironolactone 12.5 mg 06/14/17 10:06 Aldactone - PO DAILY [facility] Tamsulosin HCl 0.4 mg 06/11/17 08:30 06/14/17 10:53 Flomax - PO 0.4 mg DAILY@0830 [facility] Administration Trazodone HCl 50 mg 06/10/17 22:00 06/13/17 21:30 Desyrel - PO 50 mg HS JEREMÍAS Administration Home Medications Medication Instructions Recorded Aspirin [ASA -] 81 mg PO DAILY #30 tab.chew 05/08/17 Clopidogrel Bisulfate [Plavix -] 75 mg PO AM 05/10/17 Furosemide [Lasix] 40 mg PO AM 05/10/17 Carvedilol 6.25 mg PO BID 05/24/17 Isosorbide Mononitrate [Imdur -] 30 mg PO DAILY 05/24/17 Metoprolol Tartrate 37.5 mg PO BID 05/24/17 Tamsulosin HCl 0.4 mg PO DAILY 05/24/17 Simvastatin 20 mg PO HS 06/10/17 Spironolactone 25 mg PO DAILY 06/10/17 Trazodone HCl 50 mg PO HS 06/10/17 PE: per resident's note ASSESSMENT AND PLAN: 87 y/o man with h/ o CAD, S/p CCABG, recent stenting, AICD placement , HTN, HL, and other medical problems who presented with worsening SOB and was found to have acute CHF exacerbation # Acute dizziness with c/o having congestion like headache that was getting treated with ear drops , patient has bl hearing aid, ENT consult appreciated. # Acute on chronic Systolic and diastolic CHF: due to non compliance with meds. daily weights, Is& Os. Lasix IV 60mg daily now, with worsening creatinine. on Aspirin/plavix continue. # Acute LE BL swelling on Lasix IV daily DVT px heparin
[2017-06-14] MEDS: LIDOCAINE VISCOUS 2% ORAL/TOP 20 ML UNIT-DOSE CUP MM PRN (18:11)
--- NOTE | 2017-06-14 18:38 | CON.ENT ---
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 in [place] also reports bilateral ear surgery (mastoidectomy) reports ear pain, jenny when removing hearing aids has not seen MD for ears in many years has Ciprodex eardrops uses Bacitracin to help insert his earmolds some mouth discomfort, limiting his denture use - History Source History Provided By: Patient, Medical Record Limitations to Obtaining History: No Limitations - Past Medical History 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 Cardio/Vascular: Yes: CAD, CHF, HTN, Hyperlipdemia Pulmonary: Yes: COPD Renal/: Yes: Renal Inusuff - Past Surgical History Past Surgical History: Yes: CABG - Alcohol/Substance Use Hx Alcohol Use: No - Smoking History Smoking history: Former smoker Have you smoked in the past 12 months: No Aproximately how many cigarettes per day: 0 If you are a former smoker, when did you quit?: 1960 Home Medications - Allergies Allergies/Adverse Reactions: Allergies Allergy/AdvReac Type Severity Reaction Status Date / Time amoxicillin trihydrate AdvReac Mild gi upset Verified 06/09/17 08:50 [From Augmentin] atorvastatin calcium AdvReac Mild gi upset Verified 06/09/17 08:50 [From Lipitor] potassium clavulanate AdvReac Mild gi upset Verified 06/09/17 08:50 [From Augmentin] - Home Medications Home Medications: Ambulatory Orders Aspirin [ASA -] 81 mg PO DAILY #30 tab.chew 05/08/17 Clopidogrel Bisulfate [Plavix -] 75 mg PO AM 05/10/17 Furosemide [Lasix] 40 mg PO AM 05/10/17 Carvedilol 6.25 mg PO BID 05/24/17 Isosorbide Mononitrate [Imdur -] 30 mg PO DAILY 05/24/17 Metoprolol Tartrate 37.5 mg PO BID 05/24/17 Tamsulosin HCl 0.4 mg PO DAILY 05/24/17 Simvastatin 20 mg PO HS 06/10/17 Spironolactone 25 mg PO DAILY 06/10/17 Trazodone HCl 50 mg PO HS 06/10/17 Physical Exam-ENT Vital Signs: Vital Signs Temperature 97.7 F 06/14/17 14:00 Pulse Rate 66 06/14/17 14:00 Respiratory Rate 20 06/14/17 14:00 Blood Pressure 95/54 06/14/17 14:00 O2 Sat by Pulse Oximetry (%) 97 06/14/17 09:00 Constitutional: Yes: No Distress, Calm Head: Yes: WNL Face: Yes: WNL Eyes: Yes: WNL Nose: Yes: Septum Deviated (dry blood right anterior nasal cavity) Oral/Pharynx: Yes: Other (poor dentition, wearing upper denture, no lesion) Outer Ear: Yes: Other (bilateral pinna inflammation, small ulceration right helical root (site of earmold contact)) Ear Canal: Yes: Other (bilateral mastoid cavities, squamous debris and wax, debrided bilaterally with curet and forceps, no pus , no granulation, mild erythema jenny of superior cavity) Neck: Yes: WNL Respiratory: Yes: WNL Neurological: Yes: Alert, Oriented Assessment and Plan-Medical Impression: bilateral hearing loss continue hearing aids external ear inflammation and focal pinna ulceration from tight mold should see his hand filer balance wheel after discharge for modification of mold or new mold to reduce irritation at that site bilateral mastoiditis, chronic, s/p bilateral mastoidectomy no MD attention in years bilateral masotid cavity debridement performed continue eardrops follow-up in office after discharge mouth soreness no discrete lesion, but should rest mouth from lower denture and see dentist regarding fit warm salt water rinses for mouth follow-up in office nasal bleeding, minor advise nasal saline spray may require endoscopy if does not resolve Thank you for consultation, Aleksandr May MD FACS
--- NOTE | 2017-06-14 19:15 | PN ---
Progress Note (short form) - Note Progress Note: 87 year old male with H/o CAD/CABG,recent acute Lv failure,severe LV systolic dysfunction, NSTEMI,S/P PCI/stenting,S/P ICD and poor compliance. No SOB reported,had urinary retentionand has a bnod catheter.No further visual side effects since reducing the dose of betablocker.No dizziness reported Current Medications Generic Name Dose Route Start Last Admin Trade Name Freq PRN Reason Stop Dose Admin Alprazolam 0.125 mg 06/14/17 13:20 06/14/17 13:29 Xanax - PO 0.125 mg Q8H PRN Administration ANXIETY Aspirin 81 mg 06/11/17 10:00 06/14/17 10:55 Asa - PO 81 mg DAILY JEREMÍAS Administration Bacitracin 1 applic 06/13/17 13:15 06/14/17 10:55 Bacitracin - TP 1 applic BID JEREMÍAS Administration Carvedilol 6.25 mg 06/13/17 14:37 06/14/17 10:53 Coreg - PO 6.25 mg BID JEREMÍAS Administration Ciprofloxacin 4 drop 06/14/17 15:00 06/14/17 15:00 Ciloxan 0.3% Eye Drops - NR Not Given BID JEREMÍAS Clopidogrel Bisulfate 75 mg 06/11/17 07:00 06/14/17 06:32 Plavix - PO 75 mg AM JEREMÍAS Administration Furosemide 60 mg 06/13/17 06:00 06/14/17 06:31 Lasix Injection - IVPUSH 60 mg DAILY@0600 JEREMÍAS Administration Heparin Sodium (Porcine) 5,000 unit 06/10/17 14:00 06/14/17 15:42 Heparin - SQ Not Given TID JEREMÍAS Isosorbide Mononitrate 30 mg 06/11/17 10:00 06/14/17 10:52 Imdur - PO 30 mg DAILY JEREMÍAS Administration Lidocaine HCl 20 ml 06/11/17 16:58 06/14/17 18:11 Xylocaine 2% Viscous Oral - MM 20 ml Q6HPO PRN Administration ORAL PAIN/MOUTH SORES Multi-Ingredient Ointment 1 applic 06/13/17 13:15 06/14/17 10:55 Zinc Oxide TP 1 applic BID JEREMÍAS Administration Rosuvastatin Calcium 5 mg 06/10/17 22:00 06/13/17 21:42 Crestor - PO Not Given HS JEREMÍAS Spironolactone 12.5 mg 06/14/17 10:06 Aldactone - PO DAILY JEREMÍAS Tamsulosin HCl 0.4 mg 06/11/17 08:30 06/14/17 10:53 Flomax - PO 0.4 mg DAILY@0830 JEREMÍAS Administration Trazodone HCl 50 mg 06/10/17 22:00 06/13/17 21:30 Desyrel - PO 50 mg HS JEREMÍAS Administration 87 old male in no acute distress,no pallor,cynanosis,clubbing or jaundice Vital Signs - 8 hr 06/14/17 14:00 Temperature 97.7 F Pulse Rate 66 Respiratory 20 Rate Blood Pressure 95/54 NECK: No JVD,-VE HJR,carotids 2+ no bruits heard. HEARD: PMI in the 5th ICS,S1 and S2 are normal,DUARTE grade I/ 2nd Rt. ICSNo diastolic murmur or gallops. LUNGS: Clear. ABDOMEN: Soft,nontender,no organomegaly or masses felt. EXTREMITIES: 2+ Rt.and 1+ edema.No calf tenderness. CBC, BMP 06/12/17 01:11 06/14/17 06:00 A: 1.CHF,resolving 2.CAD/S/PCABG,recent NSTEMI,S/P PCI/stenting 3.Severe LV systolic dysfunction. 4.Hypertension. 5.Poor compliance. 6.S/P ICD. 7.Acute on CKD. 8.Anemia. 9.Uninary retention P: 1.If he continues to gain weight or increasing BUN/Creat,consider renal dose dobutamine. 2.If has on side effects related to Betablocker,dose can be reduced further. 3.F/U BMP.
[2017-06-14] MEDS: traZODone HCL 50 MG TABLET (FP) PO SCH (22:08)
[2017-06-14] MEDS ORDERED: PT OWN MED DRAWER 7, Y5N ONE (22:09)
[2017-06-14] MEDS: ROSUVASTATIN CA 5 MG TABLET (FP) PO SCH (22:10)
[2017-06-15] MEDS: HEPARIN NA (PORCINE) 5,000 UNITS/ML 1ML VIAL SQ SCH ×3 (06:17→21:21)
[2017-06-15] MEDS: FUROSEMIDE 40 MG/4 ML INJECTABLE VIAL IVPUSH SCH (06:17)
[2017-06-15] MEDS: CLOPIDOGREL BISULFATE 75 MG TABLET (FP) PO SCH (06:17)
[2017-06-15 07:43] LABS: MCH 29.1 pg (25.7-33.7); MCHC 32.7 g/dl (32.0-35.9); MEAN PLT VOLUME 9.9 fl (7.5-11.1); PLATELET COUNT 111 K/MM3 (134-434); RDW 15.8 % (11.9-15.9); WHITE BLOOD COUNT 4.8 K/mm3 (4.0-10.0)
[2017-06-15 08:11] LABS: ANION GAP 10 (8-16); CALCIUM 8.5 mg/dL (8.5-10.1); CO2 28 mmol/L (21-32); GLUCOSE,RANDOM 108 mg/dL (74-106); MAGNESIUM 2.7 mg/dL (1.8-2.4)
[2017-06-15 08:13] LABS: CREATININE 3.2 mg/dL (0.7-1.3); PHOSPHOROUS 4.9 mg/dL (2.5-4.9)
[2017-06-15] MEDS: ISOSORBIDE MONONITRATE 30 MG TAB.SR.24H (FP) PO SCH (11:00)
[2017-06-15] MEDS: CARVEDILOL 6.25 MG TABLET (FP) PO SCH ×2 (11:00→21:20)
[2017-06-15] MEDS: TAMSULOSIN HCL 0.4 MG CAP.ER.24H (FP) PO SCH (11:00)
[2017-06-15] MEDS: CIPROFLOXACIN HCL 0.3% OPHTH 2.5ML BOTTLE NR SCH ×2 (11:00→21:20)
[2017-06-15] MEDS: ASPIRIN 81 MG CHEWABLE TABLETS PO SCH (11:00)
[2017-06-15] MEDS: BACITRACIN 15 GM TUBE TOPICAL OINTMENT TP SCH ×2 (11:01→21:18)
[2017-06-15] MEDS: SPIRONOLACTONE 25 MG TABLET (FP) PO SCH (11:01)
[2017-06-15] MEDS: ZINC OXIDE 20% TOPICAL OINTMENT 30 GM TUBE TP SCH ×2 (11:01→21:21)
--- NOTE | 2017-06-15 14:52 | PN ---
Progress Note, Physician Chief Complaint: The patient sitting on a chair. Newberry catheter draing dark urine. 750 ml so far. No chest pain. - Current Medication List Current Medications: Active Medications Alprazolam (Xanax -) 0.125 mg PO Q8H PRN PRN Reason: ANXIETY Last Admin: 06/14/17 13:29 Dose: 0.125 mg Aspirin (Asa -) 81 mg PO DAILY [facility] Last Admin: 06/15/17 11:00 Dose: 81 mg Bacitracin (Bacitracin -) 1 applic TP BID [facility] Last Admin: 06/15/17 11:01 Dose: 1 applic Carvedilol (Coreg -) 6.25 mg PO BID [facility] Last Admin: 06/15/17 11:00 Dose: 6.25 mg Ciprofloxacin (Ciloxan 0.3% Eye Drops -) 4 drop NR BID [facility] Last Admin: 06/15/17 11:00 Dose: Not Given Clopidogrel Bisulfate (Plavix -) 75 mg PO AM [facility] Last Admin: 06/15/17 06:17 Dose: 75 mg Furosemide (Lasix Injection -) 60 mg IVPUSH DAILY@0600 [facility] Last Admin: 06/15/17 06:17 Dose: 60 mg Heparin Sodium (Porcine) (Heparin -) 5,000 unit SQ TID [facility] Last Admin: 06/15/17 13:57 Dose: Not Given Isosorbide Mononitrate (Imdur -) 30 mg PO DAILY [facility] Last Admin: 06/15/17 11:00 Dose: 30 mg Lidocaine HCl (Xylocaine 2% Viscous Oral -) 20 ml MM Q6HPO PRN PRN Reason: ORAL PAIN/MOUTH SORES Last Admin: 06/14/17 18:11 Dose: 20 ml Multi-Ingredient Ointment (Zinc Oxide) 1 applic TP BID [facility] Last Admin: 06/15/17 11:01 Dose: 1 applic Rosuvastatin Calcium (Crestor -) 5 mg PO HS [facility] Last Admin: 06/14/17 22:10 Dose: 5 mg Spironolactone (Aldactone -) 12.5 mg PO DAILY [facility] Last Admin: 06/15/17 11:01 Dose: 12.5 mg Tamsulosin HCl (Flomax -) 0.4 mg PO DAILY@0830 [facility] Last Admin: 06/15/17 11:00 Dose: 0.4 mg Trazodone HCl (Desyrel -) 50 mg PO HS [facility] Last Admin: 06/14/17 22:08 Dose: 50 mg - Objective Vital Signs: Vital Signs Temperature 98.2 F 06/15/17 08:38 Pulse Rate 74 06/15/17 08:38 Respiratory Rate 20 06/15/17 08:38 Blood Pressure 112/85 06/15/17 08:38 O2 Sat by Pulse Oximetry (%) 98 06/15/17 08:38 Constitutional: Yes: Well Nourished, Calm HENT: Yes: Atraumatic Neck: Yes: Supple Cardiovascular: Yes: S1, S2, S3 Gastrointestinal: Yes: Normal Bowel Sounds, Soft Musculoskeletal: Yes: Back Pain Edema: Yes Edema: LLE: 2+, RLE: 2+ Neurological: Yes: Alert, Oriented Psychiatric: Yes: Oriented Labs: CBC, BMP 06/15/17 06:00 06/15/17 06:00 INR, PTT INR 1.50 (0.82-1.09) H 06/11/17 06:05 Assessment/Plan 87 y/o male with Coronary artery disease, Acute Hemodynamic Kidney failure, and with underlying CKD. S/p NSTTMI. Serum Creatinine trending up slowly. This is because of the Renal hypoperfusiion resultant from the cardiac dysfunction. Receiving Lasix 60 mg bid ald Spironolactone. Weight slowly creeping up. ? Start Dobutamine. Thank you. will monitor the Renal functions with you. Carina Bobby MD
[2017-06-15] MEDS: DOBUTAMINE 250 MG/D5W - 250 ML IV SCH (15:30)
--- NOTE | 2017-06-15 16:58 | PN ---
Progress Note (short form) - Note Progress Note: seen by ENT, started on Dopbutamine as per nephro and cardio. Vital Signs Temperature 98.2 F 06/15/17 08:38 Pulse Rate 74 06/15/17 08:38 Respiratory Rate 20 06/15/17 08:38 Blood Pressure 112/85 06/15/17 08:38 O2 Sat by Pulse Oximetry (%) 98 06/15/17 08:38 GENERAL: The patient is awake, alert, and fully oriented, in no acute distress. HEAD: Normal with no signs of trauma. NC. ENT: oral ulcer under tongue NECK: supple. No JVD LUNGS: B/L lower lung crackles, decreased BS BL HEART: no JVD, Regular rate and rhythm, S1, S2 positive , no rub or gallop. ABDOMEN: Soft, nontender, nondistended, normoactive bowel sounds, no guarding, no rebound, no hepatosplenomegaly, no masses. EXTREMITIES: 2+ pulses, B/L LE 3+ edema PSYCH: Depressive ,sad mood SKIN: dry, 1cm left inner buttock tear CBCD WBC 4.8 K/mm3 (4.0-10.0) 06/15/17 06:00 RBC 3.92 M/mm3 (4.00-5.60) L 06/15/17 06:00 Hgb 11.4 GM/dL (11.7-16.9) L 06/15/17 06:00 Hct 34.8 % (35.4-49) L 06/15/17 06:00 MCV 89.0 fl (80-96) 06/15/17 06:00 MCHC 32.7 g/dl (32.0-35.9) 06/15/17 06:00 RDW 15.8 % (11.9-15.9) 06/15/17 06:00 Plt Count 111 K/MM3 (134-434) L 06/15/17 06:00 MPV 9.9 fl (7.5-11.1) D 06/15/17 06:00 CMP Sodium 134 mmol/L (136-145) L 06/15/17 06:00 Potassium 4.0 mmol/L (3.5-5.1) 06/15/17 06:00 Chloride 96 mmol/L (98-107) L 06/15/17 06:00 Carbon Dioxide 28 mmol/L (21-32) 06/15/17 06:00 Anion Gap 10 (8-16) 06/15/17 06:00 BUN 75 mg/dL (7-18) H 06/15/17 06:00 Creatinine 3.2 mg/dL (0.7-1.3) H 06/15/17 06:00 Creat Clearance w eGFR 27.03 (>60) 06/12/17 05:50 Random Glucose 108 mg/dL (74-106) H 06/15/17 06:00 Calcium 8.5 mg/dL (8.5-10.1) 06/15/17 06:00 Total Bilirubin 1.2 mg/dL (0.2-1.0) H 06/12/17 05:50 AST 33 U/L (15-37) 06/12/17 05:50 ALT 46 U/L (12-78) 06/12/17 05:50 Alkaline Phosphatase 114 U/L (45-117) 06/12/17 05:50 Total Protein 6.0 g/dl (6.4-8.2) L 06/12/17 05:50 Albumin 3.2 g/dl (3.4-5.0) L 06/12/17 05:50 CARDIAC ENZYMES Creatine Kinase 417 IU/L (39-308) H 06/10/17 19:43 Troponin I 0.45 ng/ml (0.00-0.05) H D 06/12/17 01:00 Current Medications Generic Name Dose Route Start Last Admin Trade Name Freq PRN Reason Stop Dose Admin Alprazolam 0.125 mg 06/14/17 13:20 06/14/17 13:29 Xanax - PO 0.125 mg Q8H PRN Administration ANXIETY Aspirin 81 mg 06/11/17 10:00 06/15/17 11:00 Asa - PO 81 mg DAILY JEREMÍAS Administration Bacitracin 1 applic 06/13/17 13:15 06/15/17 11:01 Bacitracin - TP 1 applic BID JEREMÍAS Administration Carvedilol 6.25 mg 06/13/17 14:37 06/15/17 11:00 Coreg - PO 6.25 mg BID JEREMÍAS Administration Ciprofloxacin 4 drop 06/14/17 15:00 06/15/17 11:00 Ciloxan 0.3% Eye Drops - NR Not Given BID JEREMÍAS Clopidogrel Bisulfate 75 mg 06/11/17 07:00 06/15/17 06:17 Plavix - PO 75 mg AM JEREMÍAS Administration Furosemide 60 mg 06/13/17 06:00 06/15/17 06:17 Lasix Injection - IVPUSH 60 mg DAILY@0600 JEREMÍAS Administration Heparin Sodium (Porcine) 5,000 unit 06/15/17 22:00 Heparin - SQ BID JEREMÍAS Dobutamine HCl/Dextrose 250 mls @ 25.906 mls/hr 06/15/17 15:30 Dobutamine 250 Mg/D5w - IV TITR JEREMÍAS Protocol 5 MCG/KG/MIN Isosorbide Mononitrate 30 mg 06/11/17 10:00 06/15/17 11:00 Imdur - PO 30 mg DAILY JEREMÍAS Administration Lidocaine HCl 20 ml 06/11/17 16:58 06/14/17 18:11 Xylocaine 2% Viscous Oral - MM 20 ml Q6HPO PRN Administration ORAL PAIN/MOUTH SORES Multi-Ingredient Ointment 1 applic 06/13/17 13:15 06/15/17 11:01 Zinc Oxide TP 1 applic BID JEREMÍAS Administration Rosuvastatin Calcium 5 mg 06/10/17 22:00 06/14/17 22:10 Crestor - PO 5 mg HS JEREMÍAS Administration Spironolactone 12.5 mg 06/14/17 10:06 06/15/17 11:01 Aldactone - PO 12.5 mg DAILY JEREMÍAS Administration Tamsulosin HCl 0.4 mg 06/11/17 08:30 06/15/17 11:00 Flomax - PO 0.4 mg DAILY@0830 [facility] Administration Trazodone HCl 50 mg 06/10/17 22:00 06/14/17 22:08 Desyrel - PO 50 mg HS JEREMÍAS Administration Home Medications Medication Instructions Recorded Aspirin [ASA -] 81 mg PO DAILY #30 tab.chew 05/08/17 Clopidogrel Bisulfate [Plavix -] 75 mg PO AM 05/10/17 Furosemide [Lasix] 40 mg PO AM 05/10/17 Carvedilol 6.25 mg PO BID 05/24/17 Isosorbide Mononitrate [Imdur -] 30 mg PO DAILY 05/24/17 Metoprolol Tartrate 37.5 mg PO BID 08/11/17 Tamsulosin HCl 0.4 mg PO DAILY 05/24/17 Simvastatin 20 mg PO HS 06/10/17 Spironolactone 25 mg PO DAILY 06/10/17 Trazodone HCl 50 mg PO HS 06/10/17 A/P: 87 y/o man with h/ o CAD, S/p CCABG, recent stenting, AICD placement , HTN, HL, and other medical problems who presented with worsening SOB and was found to have acute CHF exacerbation # Acute dizziness improved , s/p ENT evalaution .contine cipro ear drip , patient has bl hearing aid. upon discharge to follow up with ENT # Acute on chronic Systolic and diastolic CHF with swelling of LE BL: daily weights, Is& Os. Lasix IV daily nowsince worsening kidney function ,on Aspirin/ plavix continue. Started on Dobutamine as per cardio and nephro, if no improvement by tomorrow, will start the patient on Demadex, will check with nephro. # Acute LE BL swelling on Lasix IV 60mh daily DVT px heparin Visit type - Emergency Visit Emergency Visit: Yes ED Registration Date: 06/10/17 Care time: The patient presented to the Emergency Department on the above date and was hospitalized for further evaluation of their emergent condition. - New Patient This patient is new to me today: No - Critical Care Critical Care patient: No
--- NOTE | 2017-06-15 17:05 | PN ---
Progress Note (short form) - Note Progress Note: 87 year old male with H/o CAD/CABG,recent acute Lv failure,severe LV systolic dysfunction, NSTEMI,S/P PCI/stenting,S/P ICD and poor compliance. Complaining of fatique,no SOB,increasing pedal edema,no chest pain or discomfort reported.Started on renal dose dobutamine Active Medications Alprazolam (Xanax -) 0.125 mg PO Q8H PRN PRN Reason: ANXIETY Last Admin: 06/14/17 13:29 Dose: 0.125 mg Aspirin (Asa -) 81 mg PO DAILY [facility] Last Admin: 06/15/17 11:00 Dose: 81 mg Bacitracin (Bacitracin -) 1 applic TP BID [facility] Last Admin: 06/15/17 11:01 Dose: 1 applic Carvedilol (Coreg -) 6.25 mg PO BID [facility] Last Admin: 06/15/17 11:00 Dose: 6.25 mg Ciprofloxacin (Ciloxan 0.3% Eye Drops -) 4 drop NR BID [facility] Last Admin: 06/15/17 11:00 Dose: Not Given Clopidogrel Bisulfate (Plavix -) 75 mg PO AM [facility] Last Admin: 06/15/17 06:17 Dose: 75 mg Furosemide (Lasix Injection -) 60 mg IVPUSH DAILY@0600 [facility] Last Admin: 06/15/17 06:17 Dose: 60 mg Heparin Sodium (Porcine) (Heparin -) 5,000 unit SQ TID [facility] Last Admin: 06/15/17 13:57 Dose: Not Given Dobutamine HCl/Dextrose (Dobutamine 250 Mg/D5w -) 250 mls @ 25.906 mls/hr IV TITR JEREMÍAS; 5 MCG/KG/MIN PRN Reason: Protocol Isosorbide Mononitrate (Imdur -) 30 mg PO DAILY [facility] Last Admin: 06/15/17 11:00 Dose: 30 mg Lidocaine HCl (Xylocaine 2% Viscous Oral -) 20 ml MM Q6HPO PRN PRN Reason: ORAL PAIN/MOUTH SORES Last Admin: 06/14/17 18:11 Dose: 20 ml Multi-Ingredient Ointment (Zinc Oxide) 1 applic TP BID [facility] Last Admin: 06/15/17 11:01 Dose: 1 applic Rosuvastatin Calcium (Crestor -) 5 mg PO HS [facility] Last Admin: 06/14/17 22:10 Dose: 5 mg Spironolactone (Aldactone -) 12.5 mg PO DAILY [facility] Last Admin: 06/15/17 11:01 Dose: 12.5 mg Tamsulosin HCl (Flomax -) 0.4 mg PO DAILY@0830 [facility] Last Admin: 06/15/17 11:00 Dose: 0.4 mg Trazodone HCl (Desyrel -) 50 mg PO [facility] Last Admin: 06/14/17 22:08 Dose: 50 mg 87 old male in no acute distress,no pallor,cynanosis,clubbing or jaundice Vital Signs - 24 hr 06/14/17 06/14/17 06/14/17 18:00 21:00 22:00 Temperature 97.5 F L 97.4 F L Pulse Rate 66 71 Respiratory 20 20 Rate Blood Pressure 100/59 121/71 O2 Sat by Pulse 98 Oximetry (%) 06/15/17 06/15/17 06/15/17 02:00 06:00 08:38 Temperature 97.3 F L 97.6 F 98.2 F Pulse Rate 67 70 74 Respiratory 20 20 20 Rate Blood Pressure 125/67 115/71 112/85 O2 Sat by Pulse 98 Oximetry (%) Intake & Output 06/12/17 06/13/17 06/14/17 06/15/17 23:59 23:59 23:59 23:59 Intake Total 710 890 320 240 Output Total 400 750 Balance 710 890 -80 -510 Weight 182 lb 2 oz 186 lb 11.2 oz 186 lb 11.2 oz 190 lb 6 oz NECK: No JVD,-VE HJR,carotids 2+ no bruits heard. HEARD: PMI in the 5th ICS,S1 and S2 are normal,DUARTE grade I/ 2nd Rt.ICS No diastolic murmur or gallops. LUNGS: Clear. ABDOMEN: Soft,nontender,no organomegaly or masses felt. EXTREMITIES: 3+bilateralpedal edema.No calf tenderness. CBC, BMP 06/15/17 06:00 06/15/17 06:00 A: 1.CHF,NYHA classII 2.CAD/S/PCABG,recent NSTEMI,S/P PCI/stenting 3.Severe LV systolic dysfunction. 4.Hypertension. 5.Poor compliance. 6.S/P ICD. 7.Acute on CKD. 8.Anemia. 9.Uninary retention P: 1.Patient started on renal dose dobutamine 2.If has ongoing side effects related to Betablocker,dose can be reduced further. 3.F/U BMP. 4.May have to switch to bumex if urine out put does not improve on IV Lasix.
[2017-06-15] MEDS: traZODone HCL 50 MG TABLET (FP) PO SCH (21:20)
[2017-06-15] MEDS: ROSUVASTATIN CA 5 MG TABLET (FP) PO SCH (21:22)
[2017-06-15] MEDS ORDERED: PT OWN MED DRAWER 7, Y5N ONE (21:22)
[2017-06-15] MEDS: ALPRAZolam 0.25 MG TABLET PO PRN (23:09)
[2017-06-16] MEDS: DOBUTAMINE 250 MG/D5W - 250 ML IV SCH (02:54)
[2017-06-16] MEDS: FUROSEMIDE 40 MG/4 ML INJECTABLE VIAL IVPUSH SCH (06:34)
[2017-06-16] MEDS: CLOPIDOGREL BISULFATE 75 MG TABLET (FP) PO SCH (06:34)
[2017-06-16 09:09] LABS: ALBUMIN 3.1 g/dl (3.4-5.0); ALK PHOS 107 U/L (45-117); ANION GAP 12 (8-16); CALCIUM 8.3 mg/dL (8.5-10.1); CO2 27 mmol/L (21-32); CREATININE 2.7 mg/dL (0.7-1.3); GLUCOSE,RANDOM 118 mg/dL (74-106); SGOT/AST 24 U/L (15-37); SGPT/ALT 37 U/L (12-78); TOT PROT 5.9 g/dl (6.4-8.2)
[2017-06-16] MEDS: ISOSORBIDE MONONITRATE 30 MG TAB.SR.24H (FP) PO SCH (09:54)
[2017-06-16] MEDS: ASPIRIN 81 MG CHEWABLE TABLETS PO SCH (09:54)
[2017-06-16] MEDS: TAMSULOSIN HCL 0.4 MG CAP.ER.24H (FP) PO SCH (09:54)
[2017-06-16] MEDS: CARVEDILOL 6.25 MG TABLET (FP) PO SCH ×2 (09:54→21:58)
[2017-06-16] MEDS: SPIRONOLACTONE 25 MG TABLET (FP) PO SCH (09:55)
[2017-06-16] MEDS: ZINC OXIDE 20% TOPICAL OINTMENT 30 GM TUBE TP SCH ×2 (09:55→21:58)
[2017-06-16] MEDS: BACITRACIN 15 GM TUBE TOPICAL OINTMENT TP SCH ×2 (09:55→21:57)
[2017-06-16] MEDS: HEPARIN NA (PORCINE) 5,000 UNITS/ML 1ML VIAL SQ SCH (09:55)
[2017-06-16] MEDS: CIPROFLOXACIN HCL 0.3% OPHTH 2.5ML BOTTLE NR SCH ×2 (09:56→21:58)
--- NOTE | 2017-06-16 12:46 | PN ---
Progress Note (short form) - Note Progress Note: PULMONARY Denies shortness of breath or chest pain. No cough or wheezing. Wants his diet changed to regular. Remains on dobutamine gtt. Last Vital Signs Temp Pulse Resp BP Pulse Ox 98.4 F 76 22 122/56 94 L 06/16/17 09:00 06/16/17 09:00 06/16/17 09:00 06/16/17 09:00 06/15/17 21:00 Intake & Output 06/13/17 06/14/17 06/15/17 06/16/17 23:59 23:59 23:59 23:59 Intake Total 890 320 490 790 Output Total 630 298 0466 Balance 890 -80 -260 -850 Weight 186 lb 11.2 oz 186 lb 11.2 oz 190 lb 6 oz 188 lb Gen: NAD at rest Heart: RRR Lung: few basilar rales Abd: soft, nontender Ext: + edema CBC, BMP 06/15/17 06:00 06/16/17 05:40 Active Medications Alprazolam (Xanax -) 0.125 mg PO Q8H PRN PRN Reason: ANXIETY Last Admin: 06/15/17 23:09 Dose: 0.125 mg Aspirin (Asa -) 81 mg PO DAILY [facility] Last Admin: 06/16/17 09:54 Dose: 81 mg Bacitracin (Bacitracin -) 1 applic TP BID [facility] Last Admin: 06/16/17 09:55 Dose: 1 applic Carvedilol (Coreg -) 6.25 mg PO BID [facility] Last Admin: 06/16/17 09:54 Dose: 6.25 mg Ciprofloxacin (Ciloxan 0.3% Eye Drops -) 4 drop NR BID [facility] Last Admin: 06/16/17 09:56 Dose: 4 drop Clopidogrel Bisulfate (Plavix -) 75 mg PO AM [facility] Last Admin: 06/16/17 06:34 Dose: 75 mg Furosemide (Lasix Injection -) 60 mg IVPUSH DAILY@0600 [facility] Last Admin: 06/16/17 06:34 Dose: 60 mg Heparin Sodium (Porcine) (Heparin -) 5,000 unit SQ BID [facility] Last Admin: 06/16/17 09:55 Dose: Not Given Dobutamine HCl/Dextrose (Dobutamine 250 Mg/D5w -) 250 mls @ 25.906 mls/hr IV TITR JEREMÍAS; 5 MCG/KG/MIN PRN Reason: Protocol Last Admin: 06/16/17 02:54 Dose: 25.906 mls/hr Isosorbide Mononitrate (Imdur -) 30 mg PO DAILY [facility] Last Admin: 06/16/17 09:54 Dose: 30 mg Lidocaine HCl (Xylocaine 2% Viscous Oral -) 20 ml MM Q6HPO PRN PRN Reason: ORAL PAIN/MOUTH SORES Last Admin: 06/14/17 18:11 Dose: 20 ml Multi-Ingredient Ointment (Zinc Oxide) 1 applic TP BID [facility] Last Admin: 06/16/17 09:55 Dose: 1 applic Rosuvastatin Calcium (Crestor -) 5 mg PO HS [facility] Last Admin: 06/15/17 21:22 Dose: 5 mg Spironolactone (Aldactone -) 12.5 mg PO DAILY [facility] Last Admin: 06/16/17 09:55 Dose: 12.5 mg Tamsulosin HCl (Flomax -) 0.4 mg PO DAILY@0830 [facility] Last Admin: 06/16/17 09:54 Dose: 0.4 mg Trazodone HCl (Desyrel -) 50 mg PO HS [facility] Last Admin: 06/15/17 21:20 Dose: 50 mg A/P Acute on Chronic Systolic Heart Failure Pulmonary HTN Mitral Regurgitation CAD s/p CABG +Troponins Acute on Chronic Renal Failure - continue lasix, aldactone - dobutamine gtt per cardiology - monitor urine output, creatinine - daily weights - O2 to keep SPo2 >90% - ASA, plavix - DVT prophylaxis
--- NOTE | 2017-06-16 13:22 | PN ---
Progress Note, Physician Chief Complaint: The patient sitting on a chair. Newberry draining copious amounts of urine. Seems to be very angry over the food that he is getting. No chest pain. Respiratory status has improved too. - Current Medication List Current Medications: Active Medications Alprazolam (Xanax -) 0.125 mg PO Q8H PRN PRN Reason: ANXIETY Last Admin: 06/15/17 23:09 Dose: 0.125 mg Aspirin (Asa -) 81 mg PO DAILY [facility] Last Admin: 06/16/17 09:54 Dose: 81 mg Bacitracin (Bacitracin -) 1 applic TP BID [facility] Last Admin: 06/16/17 09:55 Dose: 1 applic Carvedilol (Coreg -) 6.25 mg PO BID [facility] Last Admin: 06/16/17 09:54 Dose: 6.25 mg Ciprofloxacin (Ciloxan 0.3% Eye Drops -) 4 drop NR BID [facility] Last Admin: 06/16/17 09:56 Dose: 4 drop Clopidogrel Bisulfate (Plavix -) 75 mg PO AM [facility] Last Admin: 06/16/17 06:34 Dose: 75 mg Furosemide (Lasix Injection -) 60 mg IVPUSH DAILY@0600 [facility] Last Admin: 06/16/17 06:34 Dose: 60 mg Heparin Sodium (Porcine) (Heparin -) 5,000 unit SQ BID [facility] Last Admin: 06/16/17 09:55 Dose: Not Given Dobutamine HCl/Dextrose (Dobutamine 250 Mg/D5w -) 250 mls @ 25.906 mls/hr IV TITR JEREMÍAS; 5 MCG/KG/MIN PRN Reason: Protocol Last Admin: 06/16/17 02:54 Dose: 25.906 mls/hr Isosorbide Mononitrate (Imdur -) 30 mg PO DAILY [facility] Last Admin: 06/16/17 09:54 Dose: 30 mg Lidocaine HCl (Xylocaine 2% Viscous Oral -) 20 ml MM Q6HPO PRN PRN Reason: ORAL PAIN/MOUTH SORES Last Admin: 06/14/17 18:11 Dose: 20 ml Multi-Ingredient Ointment (Zinc Oxide) 1 applic TP BID [facility] Last Admin: 06/16/17 09:55 Dose: 1 applic Rosuvastatin Calcium (Crestor -) 5 mg PO HS [facility] Last Admin: 06/15/17 21:22 Dose: 5 mg Spironolactone (Aldactone -) 12.5 mg PO DAILY [facility] Last Admin: 06/16/17 09:55 Dose: 12.5 mg Tamsulosin HCl (Flomax -) 0.4 mg PO DAILY@0830 [facility] Last Admin: 06/16/17 09:54 Dose: 0.4 mg Trazodone HCl (Desyrel -) 50 mg PO HS [facility] Last Admin: 06/15/17 21:20 Dose: 50 mg - Objective Vital Signs: Vital Signs Temperature 98.4 F 06/16/17 09:00 Pulse Rate 76 06/16/17 09:00 Respiratory Rate 22 06/16/17 09:00 Blood Pressure 122/56 06/16/17 09:00 O2 Sat by Pulse Oximetry (%) 99 06/16/17 09:00 Constitutional: Yes: Anxious HENT: Yes: Atraumatic, Normocephalic Neck: Yes: Supple, Trachea Midline Cardiovascular: Yes: S1, S2 Respiratory: Yes: Cough, Diminished, Poor Air Entry, Rales Gastrointestinal: Yes: Normal Bowel Sounds, Soft Genitourinary: Yes: Newberry Present. No: CVA Tenderness - Left, CVA Tenderness - Right Edema: Yes Edema: LLE: Trace, RLE: Trace Labs: CBC, BMP 06/15/17 06:00 06/16/17 05:40 INR, PTT INR 1.50 (0.82-1.09) H 06/11/17 06:05 Assessment/Plan 87 y/o male with Coronary artery disease, Diastolic dysfunction, Poor EF, Acute Hemodynamic Kidney failure, and with underlying CKD. S/p NSTTMI. The patient was started on Dobutamine yesterday, and his urine out has markedly improved and with improvement in Azotemia. Weight has also improved since yesterday. Tolerating Dobutamine well. Will monitor the Renal functions with you. Thank you. Carina Bobby MD
--- NOTE | 2017-06-16 14:00 | PN ---
Teaching Attending Note Name of Resident: Kelsy Red ATTENDING PHYSICIAN STATEMENT I saw and evaluated the patient. I reviewed the resident's note and discussed the case with the resident. I agree with the resident's findings and plan as documented. SUBJECTIVE: Patient is doing better today with no acute distress, except c/o not having regular diet. OBJECTIVE: Vital Signs Temperature 98.4 F 06/16/17 09:00 Pulse Rate 76 06/16/17 09:00 Respiratory Rate 22 06/16/17 09:00 Blood Pressure 122/56 06/16/17 09:00 O2 Sat by Pulse Oximetry (%) 99 06/16/17 09:00 GENERAL: The patient is awake, alert, and fully oriented, in no acute distress. HEAD: Normal with no signs of trauma. NC. ENT: oral ulcer under tongue NECK: supple. No JVD LUNGS: B/L lower lung crackles, decreased BS BL HEART: no JVD, Regular rate and rhythm, S1, S2 positive , DUARTE 2/6 no rub or gallop. ABDOMEN: Soft, nontender, nondistended, normoactive bowel sounds, no guarding, no rebound, no masses appreciated.. EXTREMITIES: 2+ pulses, B/L LE 3+ edema but improving PSYCH: Depressive ,sad mood SKIN: dry, 1cm left inner buttock tear CBCD WBC 4.8 K/mm3 (4.0-10.0) 06/15/17 06:00 RBC 3.92 M/mm3 (4.00-5.60) L 06/15/17 06:00 Hgb 11.4 GM/dL (11.7-16.9) L 06/15/17 06:00 Hct 34.8 % (35.4-49) L 06/15/17 06:00 MCV 89.0 fl (80-96) 06/15/17 06:00 MCHC 32.7 g/dl (32.0-35.9) 06/15/17 06:00 RDW 15.8 % (11.9-15.9) 06/15/17 06:00 Plt Count 111 K/MM3 (134-434) L 06/15/17 06:00 MPV 9.9 fl (7.5-11.1) D 06/15/17 06:00 CMP Sodium 137 mmol/L (136-145) 06/16/17 05:40 Potassium 3.5 mmol/L (3.5-5.1) 06/16/17 05:40 Chloride 98 mmol/L (98-107) 06/16/17 05:40 Carbon Dioxide 27 mmol/L (21-32) 06/16/17 05:40 Anion Gap 12 (8-16) 06/16/17 05:40 BUN 72 mg/dL (7-18) H 06/16/17 05:40 Creatinine 2.7 mg/dL (0.7-1.3) H 06/16/17 05:40 Creat Clearance w eGFR 22.47 (>60) 06/16/17 05:40 Random Glucose 118 mg/dL (74-106) H 06/16/17 05:40 Calcium 8.3 mg/dL (8.5-10.1) L 06/16/17 05:40 Total Bilirubin 1.0 mg/dL (0.2-1.0) 06/16/17 05:40 AST 24 U/L (15-37) D 06/16/17 05:40 ALT 37 U/L (12-78) 06/16/17 05:40 Alkaline Phosphatase 107 U/L (45-117) 06/16/17 05:40 Total Protein 5.9 g/dl (6.4-8.2) L 06/16/17 05:40 Albumin 3.1 g/dl (3.4-5.0) L 06/16/17 05:40 CARDIAC ENZYMES Creatine Kinase 417 IU/L (39-308) H 06/10/17 19:43 Troponin I 0.45 ng/ml (0.00-0.05) H D 06/12/17 01:00 Current Medications Generic Name Dose Route Start Last Admin Trade Name Freq PRN Reason Stop Dose Admin Alprazolam 0.125 mg 06/14/17 13:20 06/15/17 23:09 Xanax - PO 0.125 mg Q8H PRN Administration ANXIETY Aspirin 81 mg 06/11/17 10:00 06/16/17 09:54 Asa - PO 81 mg DAILY JEREMÍAS Administration Bacitracin 1 applic 06/13/17 13:15 06/16/17 09:55 Bacitracin - TP 1 applic BID JEREMÍAS Administration Carvedilol 6.25 mg 06/13/17 14:37 06/16/17 09:54 Coreg - PO 6.25 mg BID JEREMÍAS Administration Ciprofloxacin 4 drop 06/14/17 15:00 06/16/17 09:56 Ciloxan 0.3% Eye Drops - NR 4 drop BID JEREMÍAS Administration Clopidogrel Bisulfate 75 mg 06/11/17 07:00 06/16/17 06:34 Plavix - PO 75 mg AM JEREMÍAS Administration Furosemide 60 mg 06/13/17 06:00 06/16/17 06:34 Lasix Injection - IVPUSH 60 mg DAILY@0600 JEREMÍAS Administration Heparin Sodium (Porcine) 5,000 unit 06/15/17 22:00 06/16/17 09:55 Heparin - SQ Not Given BID JEREMÍAS Dobutamine HCl/Dextrose 250 mls @ 25.906 mls/hr 06/15/17 15:30 06/16/17 02:54 Dobutamine 250 Mg/D5w - IV 25.906 mls/hr TITR JEREMÍAS Administration Protocol 5 MCG/KG/MIN Isosorbide Mononitrate 30 mg 06/11/17 10:00 06/16/17 09:54 Imdur - PO 30 mg DAILY JEREMÍAS Administration Lidocaine HCl 20 ml 06/11/17 16:58 06/14/17 18:11 Xylocaine 2% Viscous Oral - MM 20 ml Q6HPO PRN Administration ORAL PAIN/MOUTH SORES Multi-Ingredient Ointment 1 applic 06/13/17 13:15 06/16/17 09:55 Zinc Oxide TP 1 applic BID JEREMÍAS Administration Rosuvastatin Calcium 5 mg 06/10/17 22:00 06/15/17 21:22 Crestor - PO 5 mg HS JEREMÍAS Administration Spironolactone 12.5 mg 06/14/17 10:06 06/16/17 09:55 Aldactone - PO 12.5 mg DAILY JER[facility]AS Administration Tamsulosin HCl 0.4 mg 06/11/17 08:30 06/16/17 09:54 Flomax - PO 0.4 mg DAILY@0830 [facility] Administration Trazodone HCl 50 mg 06/10/17 22:00 06/15/17 21:20 Desyrel - PO 50 mg HS JEREMÍAS Administration Vital Signs Temp 98.4 F 06/16/17 09:00 Pulse 76 06/16/17 09:00 Resp 22 06/16/17 09:00 BP 122/56 06/16/17 09:00 Pulse Ox 99 06/16/17 09:00 Intake & Output 06/15/17 06/16/17 06/16/17 23:59 11:59 23:59 Intake Total 490 790 Output Total 400 1640 1050 Balance 90 -850 -1050 Weight 85.275 kg Intake: IV 300 Dobutamine 250 mg/D5w - 300 250 ml @ 5 MCG/KG/MIN 25. 906 mls/hr IV TITR JEREMÍAS Rx #:[id number] Oral 490 490 Output: Urine 400 1640 1050 Void 400 1640 1050 Other: Voiding Method Indwelling Catheter Indwelling Catheter Bowel Movement No Weight Measurement Method Standing Scale ASSESSMENT AND PLAN: 87 y/o man with h/ o CAD, S/p CCABG, recent stenting, AICD placement , HTN, HL, and other medical problems who presented with worsening SOB and was found to have acute CHF exacerbation # Acute dizziness improved , s/p ENT evalaution .contine cipro ear drops , patient has bl hearing aid. 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 Patient was started on Dobutamine as per cardio, improving his urinary output, continue Lasix IV. continue Aspirin/plavix . Started on Dobutamine as per cardio and nephro, patient is improving. # Acute renal failure over chronic 3.1-->2.7 today, on dobutamine has good urinary output # Acute LE BL swelling on Lasix IV DVT px , will discontinue heparin since patient is having epistaxis, abdominal inj.site bleeding so will discontinue
[2017-06-16 15:12] LABS: BASOPHIL 1.2 % (0-2.0); MCH 29.2 pg (25.7-33.7); MEAN CELL VOLUME 88.4 fl (80-96); MEAN PLT VOLUME 9.7 fl (7.5-11.1); NEUTROPHILS 68.5 % (42.8-82.8); PLATELET COUNT 110 K/MM3 (134-434); RDW 15.6 % (11.9-15.9); WHITE BLOOD COUNT 5.1 K/mm3 (4.0-10.0)
--- NOTE | 2017-06-16 16:28 | PN ---
Progress Note (short form) - Note Progress Note: 87 year old male with H/o CAD/CABG,H/O severe LV systolic dysfunction,recent acute LV failure, NSTEMI,S/P PCI/stenting,S/P ICD and poor compliance. Decreasing pedal edema,no SOB reported,less fatigue,no chest pain or discomfort.Refuses to eat,wants regular food but willing to continue low salt diet.Lost 2lbs.of weight.on dobutamine Active Medications Generic Name Dose Route Start Last Admin Trade Name Freq PRN Reason Stop Dose Admin Alprazolam 0.125 mg 06/14/17 13:20 06/15/17 23:09 Xanax - PO 0.125 mg Q8H PRN Administration ANXIETY Aspirin 81 mg 06/11/17 10:00 06/16/17 09:54 Asa - PO 81 mg DAILY JEREMÍAS Administration Bacitracin 1 applic 06/13/17 13:15 06/16/17 09:55 Bacitracin - TP 1 applic BID JEREMÍAS Administration Carvedilol 6.25 mg 06/13/17 14:37 06/16/17 09:54 Coreg - PO 6.25 mg BID JEREMÍAS Administration Ciprofloxacin 4 drop 06/14/17 15:00 06/16/17 09:56 Ciloxan 0.3% Eye Drops - NR 4 drop BID JEREMÍAS Administration Clopidogrel Bisulfate 75 mg 06/11/17 07:00 06/16/17 06:34 Plavix - PO 75 mg AM JEREMÍAS Administration Furosemide 60 mg 06/13/17 06:00 06/16/17 06:34 Lasix Injection - IVPUSH 60 mg DAILY@0600 JEREMÍAS Administration Heparin Sodium (Porcine) 5,000 unit 06/15/17 22:00 06/16/17 09:55 Heparin - SQ Not Given BID JEREMÍAS Dobutamine HCl/Dextrose 250 mls @ 25.906 mls/hr 06/15/17 15:30 06/16/17 02:54 Dobutamine 250 Mg/D5w - IV 25.906 mls/hr TITR JEREMÍAS Administration Protocol 5 MCG/KG/MIN Isosorbide Mononitrate 30 mg 06/11/17 10:00 06/16/17 09:54 Imdur - PO 30 mg DAILY JEREMÍAS Administration Lidocaine HCl 20 ml 06/11/17 16:58 06/14/17 18:11 Xylocaine 2% Viscous Oral - MM 20 ml Q6HPO PRN Administration ORAL PAIN/MOUTH SORES Multi-Ingredient Ointment 1 applic 06/13/17 13:15 06/16/17 09:55 Zinc Oxide TP 1 applic BID JEREMÍAS Administration Rosuvastatin Calcium 5 mg 06/10/17 22:00 06/15/17 21:22 Crestor - PO 5 mg HS JEREMÍAS Administration Spironolactone 12.5 mg 06/14/17 10:06 06/16/17 09:55 Aldactone - PO 12.5 mg DAILY JEREMÍAS Administration Tamsulosin HCl 0.4 mg 06/11/17 08:30 06/16/17 09:54 Flomax - PO 0.4 mg DAILY@0830 JEREMÍAS Administration Trazodone HCl 50 mg 06/10/17 22:00 06/15/17 21:20 Desyrel - PO 50 mg HS JEREMÍAS Administration 87 old male in no acute distress,no pallor,cyanosis,clubbing or jaundice Intake & Output 06/13/17 06/14/17 06/15/17 06/16/17 23:59 23:59 23:59 23:59 Intake Total 890 557 268 5132 Output Total 902 727 3539 Balance 890 -80 -260 -1600 Weight 186 lb 11.2 oz 186 lb 11.2 oz 190 lb 6 oz 188 lb Vital Signs 06/16/17 06/16/17 09:00 14:00 Temperature 98.4 F 97.4 F L Pulse Rate 76 77 Respiratory 22 Rate Blood Pressure 122/56 137/61 O2 Sat by Pulse 99 Oximetry (%) NECK: No JVD,-VE HJR,carotids 2+ no bruits heard. HEARD: PMI in the 5th ICS,S1 and S2 are normal,DUARTE grade I/ 2nd Rt.ICS No diastolic murmur or gallops. LUNGS: Clear. ABDOMEN: Soft,nontender,no organomegaly or masses felt.Large area of ecchymosis of the abdominal wall with oozing from injection site. EXTREMITIES: 2+ bilateral pedal edema.No calf tenderness. CBC, BMP 06/16/17 15:00 06/16/17 05:40 A: 1.Abdominal ecchymosis an oozing secondary to S/Q heparin injection. 2.CAD/S/P CABG,recent NSTEMI,S/P PCI/stenting 3.Severe LV systolic dysfunction. 4.CHF,NYHA classIII 5.Poor compliance. 6.S/P ICD. 7.Acute on CKD. 8.Anemia. 9.Uninary retention. P: 1.D/C S/Q heparin and continue ASA and Plavix. 2.If has ongoing side effects related to Betablocker,dose can be reduced further. 3.Change diet to 2gm.sodium regular 4.May have to switch to bumex if urine out put does not improve on IV Lasix.
[2017-06-16] MEDS ORDERED: ALPRAZolam 0.25 MG TABLET PO PRN (16:39)
--- NOTE | 2017-06-16 16:46 | PN ---
Physical Exam: SUBJECTIVE: Patient seen and examined. No acute events overnight. He feels much better than yesterday. He offers no complaints. OBJECTIVE: Vital Signs Period Temp Pulse Resp BP Sys/العلي Pulse Ox Last 24 Hr 97.4 F-98.4 F 73-77 20-121 112-137/54-95 94-99 GENERAL: The patient is awake, alert, and fully oriented, in no acute distress. HEAD: Normal with no signs of trauma. ENT: oral ulcer under tongue. Bleeding from right nostril. NECK: supple. LUNGS: B/L lower lung crackles HEART: + JVD, Regular rate and rhythm, S1, S2 without murmur, rub or gallop. ABDOMEN: Soft, nontender, nondistended, normoactive bowel sounds, no guarding, no rebound, no hepatosplenomegaly, no masses. EXTREMITIES: 2+ pulses, B/L LE 2+ edema (improving) PSYCH: Normal mood, normal affect. SKIN: dry, 1cm left inner buttock tear Laboratory Results - last 24 hr 06/16/17 06/16/17 06/16/17 05:40 06:34 15:00 WBC 5.1 RBC 3.69 L Hgb 10.8 L Hct 32.6 L MCV 88.4 MCH 29.2 MCHC 33.0 RDW 15.6 Plt Count 110 L MPV 9.7 Neutrophils % 68.5 Lymphocytes % 16.8 Monocytes % 10.5 H Eosinophils % 3.0 Basophils % 1.2 Sodium 137 Potassium 3.5 Chloride 98 Carbon Dioxide 27 Anion Gap 12 BUN 72 H Creatinine 2.7 H Creat Clearance w eGFR 22.47 POC Glucometer 121 Random Glucose 118 H Calcium 8.3 L Total Bilirubin 1.0 AST 24 D ALT 37 Alkaline Phosphatase 107 Total Protein 5.9 L Albumin 3.1 L Active Medications Generic Name Dose Route Start Last Admin Trade Name Freq PRN Reason Stop Dose Admin Alprazolam 0.125 mg 06/14/17 13:20 06/15/17 23:09 Xanax - PO 0.125 mg Q8H PRN Administration ANXIETY Aspirin 81 mg 06/11/17 10:00 06/16/17 09:54 Asa - PO 81 mg DAILY JEREMÍAS Administration Bacitracin 1 applic 06/13/17 13:15 06/16/17 09:55 Bacitracin - TP 1 applic BID JEREMÍAS Administration Carvedilol 6.25 mg 06/13/17 14:37 06/16/17 09:54 Coreg - PO 6.25 mg BID JEREMÍAS Administration Ciprofloxacin 4 drop 06/14/17 15:00 06/16/17 09:56 Ciloxan 0.3% Eye Drops - NR 4 drop BID JEREMÍAS Administration Clopidogrel Bisulfate 75 mg 06/11/17 07:00 06/16/17 06:34 Plavix - PO 75 mg AM JEREMÍAS Administration Furosemide 60 mg 06/13/17 06:00 06/16/17 06:34 Lasix Injection - IVPUSH 60 mg DAILY@0600 JEREMÍAS Administration Heparin Sodium (Porcine) 5,000 unit 06/15/17 22:00 06/16/17 09:55 Heparin - SQ Not Given BID JEREMÍAS Dobutamine HCl/Dextrose 250 mls @ 25.906 mls/hr 06/15/17 15:30 06/16/17 02:54 Dobutamine 250 Mg/D5w - IV 25.906 mls/hr TITR JEREMÍAS Administration Protocol 5 MCG/KG/MIN Isosorbide Mononitrate 30 mg 06/11/17 10:00 06/16/17 09:54 Imdur - PO 30 mg DAILY JEREMÍAS Administration Lidocaine HCl 20 ml 06/11/17 16:58 06/14/17 18:11 Xylocaine 2% Viscous Oral - MM 20 ml Q6HPO PRN Administration ORAL PAIN/MOUTH SORES Multi-Ingredient Ointment 1 applic 06/13/17 13:15 06/16/17 09:55 Zinc Oxide TP 1 applic BID JEREMÍAS Administration Rosuvastatin Calcium 5 mg 06/10/17 22:00 06/15/17 21:22 Crestor - PO 5 mg HS JEREMÍAS Administration Spironolactone 12.5 mg 06/14/17 10:06 06/16/17 09:55 Aldactone - PO 12.5 mg DAILY JEREMÍAS Administration Tamsulosin HCl 0.4 mg 06/11/17 08:30 06/16/17 09:54 Flomax - PO 0.4 mg DAILY@0830 JEREMÍAS Administration Trazodone HCl 50 mg 06/10/17 22:00 06/15/17 21:20 Desyrel - PO 50 mg HS JEREMÍAS Administration ASSESSMENT/PLAN: 87M with multiple medical problems presents to the hospital with acute on chronic left sided systolic heart failure and worsening orthopnea. #Acute on chronic CHF left sided systolic exacerbation: likely secondary to medication non compliance vs NSTEMI. -continue lasix 60mg IV push daily (1kg weight loss and 2.6L in urine output) -Continue coreg 6.25 mg BID cardiology consult appreciated: If BP remains low, will likely switch to Metoprolol XL 12.5 PO Daily -telemetry -F/up labs in AM -spironolactone -Imdur -start ALYCE/Arb when creatinine back to baseline #Acute on Chronic Renal insuffiency in setting of CHF/Volume overload -Likely EDITA due to renal hypoprofusion in setting of CHF and transient intravascular volume depletion with IV diuretics as per Nephrology -continue dobutamine drip to maintain systemic perfusion and preserve end-organ performance as per nephro #Left inner buttock tear - Bacitracin TP #Urinary Retention -Newberry placed as per nephro #Anxiety -Xanax .25mg Q8 prn for anxiety attacks #Dizziness and possible vertigo -patient recent history of otitis media -Continue Cipro ear drops per ENT -f/u ENT outpatient #Oral ulcer: likely from dentures -Zylocaine 2% -improving -ENT on board #Troponinemia: Possible NSTEMI but most likely demand ischemia from CHF exacerbation but it is also possible NSTEMI led to his current symptoms peaked at 0.9 then trended downwards likely demand vs CHF exacerbation cardiology on board echo noted #Transaminitis: anicteric likely secondary to liver congestion from CHF exacerbation Will trend LFTs-improved #CAD: see above statin aspirin #HTN: coreg 6.25 BID IMDUR 30mg po daily #Hyperglycemia: fingersticks ACHS to monitor glucose values. HbA1C 6.5 patient diabetic type 2 fingersticks well controlled at this time #COPD: not in acute exacerbation at this time pulmonology consult appreciated bronchodialtors PRN O2 PRN #CKD: Creatinine at baseline will continue to trend and monitor #BPH: restart home dose of flomax #Insomnia: trazadone FEN: Not on IV Fluids no electrolyte issues Strict sodium diet PPx: Held AG due to nose bleed and abdominal ecchymosis per Cardio no GI PPx indicated no PT consult needed patient is ambulating with a cane Visit type - Emergency Visit Emergency Visit: Yes ED Registration Date: 08/28/17 Care time: The patient presented to the Emergency Department on the above date and was hospitalized for further evaluation of their emergent condition. - New Patient This patient is new to me today: No - Critical Care Critical Care patient: No
[2017-06-16] MEDS: traZODone HCL 50 MG TABLET (FP) PO SCH (21:58)
[2017-06-16] MEDS: ROSUVASTATIN CA 5 MG TABLET (FP) PO SCH (21:58)
[2017-06-16] MEDS: ALPRAZolam 0.25 MG TABLET PO PRN (23:55)
[2017-06-17] MEDS: DOBUTAMINE 250 MG/D5W - 250 ML IV SCH ×3 (06:28→16:00)
[2017-06-17] MEDS: FUROSEMIDE 40 MG/4 ML INJECTABLE VIAL IVPUSH SCH ×2 (06:29→18:17)
[2017-06-17] MEDS: CLOPIDOGREL BISULFATE 75 MG TABLET (FP) PO SCH (06:29)
[2017-06-17 08:38] LABS: ALBUMIN 3.2 g/dl (3.4-5.0); ANION GAP 11 (8-16); CO2 29 mmol/L (21-32); GLUCOSE,RANDOM 93 mg/dL (74-106)
[2017-06-17 08:42] LABS: ALK PHOS 101 U/L (45-117); CALCIUM 8.1 mg/dL (8.5-10.1); CREATININE 2.4 mg/dL (0.7-1.3); MAGNESIUM 2.5 mg/dL (1.8-2.4); PHOSPHOROUS 3.6 mg/dL (2.5-4.9); SGOT/AST 17 U/L (15-37); SGPT/ALT 36 U/L (12-78); TOT PROT 6.2 g/dl (6.4-8.2)
[2017-06-17] MEDS: TAMSULOSIN HCL 0.4 MG CAP.ER.24H (FP) PO SCH (09:06)
[2017-06-17] MEDS: BACITRACIN 15 GM TUBE TOPICAL OINTMENT TP SCH ×2 (09:06→21:27)
[2017-06-17] MEDS: ASPIRIN 81 MG CHEWABLE TABLETS PO SCH (09:06)
[2017-06-17] MEDS: ISOSORBIDE MONONITRATE 30 MG TAB.SR.24H (FP) PO SCH (09:06)
[2017-06-17] MEDS: SPIRONOLACTONE 25 MG TABLET (FP) PO SCH (09:06)
[2017-06-17] MEDS: CARVEDILOL 6.25 MG TABLET (FP) PO SCH ×2 (09:06→21:28)
[2017-06-17] MEDS: ZINC OXIDE 20% TOPICAL OINTMENT 30 GM TUBE TP SCH ×2 (09:07→21:26)
[2017-06-17] MEDS: CIPROFLOXACIN HCL 0.3% OPHTH 2.5ML BOTTLE NR SCH ×2 (09:11→21:28)
--- NOTE | 2017-06-17 10:04 | PN ---
Progress Note, Physician History of Present Illness: pulmonary alert,feeling better,less dyspneic,on dobutamine drip - Current Medication List Current Medications: Active Medications Alprazolam (Xanax -) 0.25 mg PO Q8H PRN PRN Reason: ANXIETY Last Admin: 06/16/17 23:55 Dose: 0.25 mg Aspirin (Asa -) 81 mg PO DAILY [facility] Last Admin: 06/17/17 09:06 Dose: 81 mg Bacitracin (Bacitracin -) 1 applic TP BID [facility] Last Admin: 06/17/17 09:06 Dose: 1 applic Carvedilol (Coreg -) 6.25 mg PO BID [facility] Last Admin: 06/17/17 09:06 Dose: 6.25 mg Ciprofloxacin (Ciloxan 0.3% Eye Drops -) 4 drop NR BID [facility] Last Admin: 06/17/17 09:11 Dose: 4 drop Clopidogrel Bisulfate (Plavix -) 75 mg PO AM [facility] Last Admin: 06/17/17 06:29 Dose: 75 mg Furosemide (Lasix Injection -) 60 mg IVPUSH DAILY@0600 [facility] Last Admin: 06/17/17 06:29 Dose: 60 mg Dobutamine HCl/Dextrose (Dobutamine 250 Mg/D5w -) 250 mls @ 25.906 mls/hr IV TITR JEREMÍAS; 5 MCG/KG/MIN PRN Reason: Protocol Last Admin: 06/17/17 06:28 Dose: 25.906 mls/hr Isosorbide Mononitrate (Imdur -) 30 mg PO DAILY [facility] Last Admin: 06/17/17 09:06 Dose: 30 mg Lidocaine HCl (Xylocaine 2% Viscous Oral -) 20 ml MM Q6HPO PRN PRN Reason: ORAL PAIN/MOUTH SORES Last Admin: 06/14/17 18:11 Dose: 20 ml Multi-Ingredient Ointment (Zinc Oxide) 1 applic TP BID [facility] Last Admin: 06/17/17 09:07 Dose: 1 applic Rosuvastatin Calcium (Crestor -) 5 mg PO HS [facility] Last Admin: 06/16/17 21:58 Dose: 5 mg Spironolactone (Aldactone -) 12.5 mg PO DAILY [facility] Last Admin: 06/17/17 09:06 Dose: 12.5 mg Tamsulosin HCl (Flomax -) 0.4 mg PO DAILY@0830 [facility] Last Admin: 06/17/17 09:06 Dose: 0.4 mg Trazodone HCl (Desyrel -) 50 mg PO HS [facility] Last Admin: 06/16/17 21:58 Dose: 50 mg - Objective Vital Signs: Vital Signs Temperature 97.6 F 06/17/17 06:33 Pulse Rate 76 06/17/17 06:33 Respiratory Rate 20 06/17/17 06:33 Blood Pressure 113/60 06/17/17 06:33 O2 Sat by Pulse Oximetry (%) 95 06/16/17 21:00 Constitutional: Yes: Well Nourished, Calm Eyes: Yes: WNL HENT: Yes: WNL Neck: Yes: WNL Cardiovascular: Yes: Pulse Irregular, S1, S2 Respiratory: Yes: Rales (bilateral rales 1/3 up) Gastrointestinal: Yes: Normal Bowel Sounds, Soft Extremities: Yes: WNL Edema: Yes Labs: CBC, BMP 06/16/17 15:00 06/17/17 07:00 INR, PTT INR 1.50 (0.82-1.09) H 06/11/17 06:05 Problem List - Problems (1) CAD (coronary artery disease) Code(s): I25.10 - ATHSCL HEART DISEASE OF [place] CORONARY ARTERY W/O ANG PCTRS (2) CHF (congestive heart failure) Code(s): I50.9 - HEART FAILURE, UNSPECIFIED Qualifiers: Qualified Code(s): I50.9 - Heart failure, unspecified (3) Hypertension Code(s): I10 - ESSENTIAL (PRIMARY) HYPERTENSION (4) Renal insufficiency Code(s): N28.9 - DISORDER OF KIDNEY AND URETER, UNSPECIFIED (5) Dyspnea on exertion Code(s): R06.09 - OTHER FORMS OF DYSPNEA (6) SOB (shortness of breath) Code(s): R06.02 - SHORTNESS OF BREATH (7) Chronic kidney disease (CKD) stage G3a/A2, moderately decreased glomerular filtration rate (GFR) between 45-59 mL/min/1.73 square meter and albuminuria creatinine ratio between 30-299 mg/g Code(s): N18.3 - CHRONIC KIDNEY DISEASE, STAGE 3 (MODERATE) Assessment/Plan IMP DYSPNEA IMPROVING ACUTE ON CHRONIC CHF SEVERE LV DYSFUNCTION ASHD S/P CABG,STENTS PULMONARY HTN HTN CKD PLAN LASIX IV ALDACTONE DOBUTAMINE DRIP PER CARDIOLOGY PLAVIX O2 DAILY WTS INHALED BRONCHODILATORS MONITOR LYES ,RENAL FUNCTION DR ANGELA Problem List - Problems (1) CAD (coronary artery disease) Code(s): I25.10 - ATHSCL HEART DISEASE OF [place] CORONARY ARTERY W/O ANG PCTRS (2) CHF (congestive heart failure) Code(s): I50.9 - HEART FAILURE, UNSPECIFIED Qualifiers: Congestive heart failure type: unspecified congestive heart failure type Congestive heart failure chronicity: acute on chronic Qualified Code(s): I50.9 - Heart failure, unspecified (3) Hypertension Code(s): I10 - ESSENTIAL (PRIMARY) HYPERTENSION (4) Renal insufficiency Code(s): N28.9 - DISORDER OF KIDNEY AND URETER, UNSPECIFIED (5) Dyspnea on exertion Code(s): R06.09 - OTHER FORMS OF DYSPNEA (6) SOB (shortness of breath) Code(s): R06.02 - SHORTNESS OF BREATH (7) Chronic kidney disease (CKD) stage G3a/A2, moderately decreased glomerular filtration rate (GFR) between 45-59 mL/min/1.73 square meter and albuminuria creatinine ratio between 30-299 mg/g Code(s): N18.3 - CHRONIC KIDNEY DISEASE, STAGE 3 (MODERATE)
--- NOTE | 2017-06-17 10:18 | PN ---
Progress Note (short form) - Note Progress Note: Renal Follow up for EDITA on CKD with volume overload Pt seen and examined at the bedside awake and alert denies any CP, cotninues to have SOB but is improving LE swelling persists but better no Abd pain, N/V/D on IV dobutamine gtt Vital Signs Temperature 97.6 F 06/17/17 06:33 Pulse Rate 76 06/17/17 06:33 Respiratory Rate 20 06/17/17 06:33 Blood Pressure 113/60 06/17/17 06:33 O2 Sat by Pulse Oximetry (%) 95 06/16/17 21:00 Intake & Output 06/14/17 06/15/17 06/16/17 06/17/17 23:59 23:59 23:59 23:59 Intake Total 895 031 0998 600 Output Total 581 309 6478 1200 Balance -80 -260 -1750 -600 Weight 186 lb 11.2 oz 190 lb 6 oz 188 lb 188 lb Gen: NAD CVS: RRR Lungs :Dec BS at lung bases Abd: soft NT/ND Ext: 2+ edema CBC, BMP 06/16/17 15:00 06/17/17 07:00 Current Medications Alprazolam (Xanax -) 0.25 mg PO Q8H PRN PRN Reason: ANXIETY Last Admin: 06/16/17 23:55 Dose: 0.25 mg Aspirin (Asa -) 81 mg PO DAILY [facility] Last Admin: 06/17/17 09:06 Dose: 81 mg Bacitracin (Bacitracin -) 1 applic TP BID [facility] Last Admin: 06/17/17 09:06 Dose: 1 applic Carvedilol (Coreg -) 6.25 mg PO BID [facility] Last Admin: 06/17/17 09:06 Dose: 6.25 mg Ciprofloxacin (Ciloxan 0.3% Eye Drops -) 4 drop NR BID [facility] Last Admin: 06/17/17 09:11 Dose: 4 drop Clopidogrel Bisulfate (Plavix -) 75 mg PO AM [facility] Last Admin: 06/17/17 06:29 Dose: 75 mg Furosemide (Lasix Injection -) 60 mg IVPUSH DAILY@0600 [facility] Last Admin: 06/17/17 06:29 Dose: 60 mg Dobutamine HCl/Dextrose (Dobutamine 250 Mg/D5w -) 250 mls @ 25.906 mls/hr IV TITR JEREMÍAS; 5 MCG/KG/MIN PRN Reason: Protocol Last Admin: 06/17/17 06:28 Dose: 25.906 mls/hr Isosorbide Mononitrate (Imdur -) 30 mg PO DAILY [facility] Last Admin: 06/17/17 09:06 Dose: 30 mg Lidocaine HCl (Xylocaine 2% Viscous Oral -) 20 ml MM Q6HPO PRN PRN Reason: ORAL PAIN/MOUTH SORES Last Admin: 06/14/17 18:11 Dose: 20 ml Multi-Ingredient Ointment (Zinc Oxide) 1 applic TP BID [facility] Last Admin: 06/17/17 09:07 Dose: 1 applic Rosuvastatin Calcium (Crestor -) 5 mg PO HS [facility] Last Admin: 06/16/17 21:58 Dose: 5 mg Spironolactone (Aldactone -) 12.5 mg PO DAILY [facility] Last Admin: 06/17/17 09:06 Dose: 12.5 mg Tamsulosin HCl (Flomax -) 0.4 mg PO DAILY@0830 [facility] Last Admin: 06/17/17 09:06 Dose: 0.4 mg Trazodone HCl (Desyrel -) 50 mg PO HS [facility] Last Admin: 06/16/17 21:58 Dose: 50 mg A/P 87 year old gentleman with PMhx of CAD s/p CABG, recent NSTEMI with Cardiac cath with PCI, CHF with AICD, Hypertension, COPD, CKD with baseline Cr of 1.6 to 2 presents with complaints of LE swelling and SOB and found to have CHF exacerbation with concurrent EDITA Cr 2.3-3.1. #Acute on Chronic Renal insufficiency in setting of CHF/Volume overload Renal function improving with IV dobutamine and IV lasix which is consistent with Cardio-Renal Syndrome Change Lasix to BID (60mg in AM, 40mg in PM) goal is to keep pt net negative and achieve weight loss Trend BUN/Cr on Aldactone but would not start ALYCE/ARB at this time Thank you Will follow Lobo Shrestha DO
[2017-06-17 13:41] LABS: EOSINOPHIL 3.3 % (0-4.5); MCH 29.1 pg (25.7-33.7); MCHC 32.8 g/dl (32.0-35.9); MEAN CELL VOLUME 88.9 fl (80-96); MEAN PLT VOLUME 9.1 fl (7.5-11.1); PLATELET COUNT 110 K/MM3 (134-434); RDW 15.3 % (11.9-15.9); WHITE BLOOD COUNT 4.8 K/mm3 (4.0-10.0)
--- NOTE | 2017-06-17 17:23 | PN ---
Progress Note (short form) - Note Progress Note: Vital Signs Temperature 98.2 F 06/17/17 14:00 Pulse Rate 77 06/17/17 14:00 Respiratory Rate 20 06/17/17 14:00 Blood Pressure 129/56 06/17/17 14:00 O2 Sat by Pulse Oximetry (%) 94 L 06/17/17 09:00 GENERAL: The patient is awake, alert, and fully oriented, in no acute distress. HEAD: Normal with no signs of trauma. NC. ENT: oral ulcer under tongue NECK: supple. No JVD LUNGS: B/L lower lung crackles, decreased BS BL HEART: no JVD, Regular rate and rhythm, S1, S2 positive , no rub or gallop. ABDOMEN: Soft, nontender, nondistended, normoactive bowel sounds, no guarding, no rebound, no hepatosplenomegaly, no masses. EXTREMITIES: 2+ pulses, B/L LE 3+ edema PSYCH: Depressive ,sad mood SKIN: dry, 1cm left inner buttock tear CBCD WBC 4.8 K/mm3 (4.0-10.0) 06/17/17 13:20 RBC 3.81 M/mm3 (4.00-5.60) L 06/17/17 13:20 Hgb 11.1 GM/dL (11.7-16.9) L 06/17/17 13:20 Hct 33.9 % (35.4-49) L 06/17/17 13:20 MCV 88.9 fl (80-96) 06/17/17 13:20 MCHC 32.8 g/dl (32.0-35.9) 06/17/17 13:20 RDW 15.3 % (11.9-15.9) 06/17/17 13:20 Plt Count 110 K/MM3 (134-434) L 06/17/17 13:20 MPV 9.1 fl (7.5-11.1) 06/17/17 13:20 CMP Sodium 137 mmol/L (136-145) 06/17/17 07:00 Potassium 3.4 mmol/L (3.5-5.1) L 06/17/17 07:00 Chloride 97 mmol/L (98-107) L 06/17/17 07:00 Carbon Dioxide 29 mmol/L (21-32) 06/17/17 07:00 Anion Gap 11 (8-16) 06/17/17 07:00 BUN 58 mg/dL (7-18) H 06/17/17 07:00 Creatinine 2.4 mg/dL (0.7-1.3) H 06/17/17 07:00 Creat Clearance w eGFR 25.74 (>60) 06/17/17 07:00 Random Glucose 93 mg/dL (74-106) D 06/17/17 07:00 Calcium 8.1 mg/dL (8.5-10.1) L 06/17/17 07:00 Total Bilirubin 1.0 mg/dL (0.2-1.0) 06/17/17 07:00 AST 17 U/L (15-37) D 06/17/17 07:00 ALT 36 U/L (12-78) 06/17/17 07:00 Alkaline Phosphatase 101 U/L (45-117) 06/17/17 07:00 Total Protein 6.2 g/dl (6.4-8.2) L 06/17/17 07:00 Albumin 3.2 g/dl (3.4-5.0) L 06/17/17 07:00 CARDIAC ENZYMES Creatine Kinase 417 IU/L (39-308) H 06/10/17 19:43 Troponin I 0.45 ng/ml (0.00-0.05) H D 06/12/17 01:00 Current Medications Generic Name Dose Route Start Last Admin Trade Name Freq PRN Reason Stop Dose Admin Alprazolam 0.25 mg 06/16/17 16:42 06/16/17 23:55 Xanax - PO 0.25 mg Q8H PRN Administration ANXIETY Aspirin 81 mg 06/11/17 10:00 06/17/17 09:06 Asa - PO 81 mg DAILY JEREMÍAS Administration Bacitracin 1 applic 06/13/17 13:15 06/17/17 09:06 Bacitracin - TP 1 applic BID JEREMÍAS Administration Carvedilol 6.25 mg 06/13/17 14:37 06/17/17 09:06 Coreg - PO 6.25 mg BID JEREMÍAS Administration Ciprofloxacin 4 drop 06/14/17 15:00 06/17/17 09:11 Ciloxan 0.3% Eye Drops - NR 4 drop BID JEREMÍAS Administration Clopidogrel Bisulfate 75 mg 06/11/17 07:00 06/17/17 06:29 Plavix - PO 75 mg AM [facility]AS Administration Furosemide 60 mg 06/13/17 06:00 06/17/17 06:29 Lasix Injection - IVPUSH 60 mg DAILY@0600 JER[facility]ÍAS Administration Furosemide 40 mg 06/17/17 17:00 Lasix Injection - IVPUSH DAILY@1700 [facility] Dobutamine HCl/Dextrose 250 mls @ 25.906 mls/hr 06/15/17 15:30 06/17/17 06:28 Dobutamine 250 Mg/D5w - IV 25.906 mls/hr TITR JEREMÍAS Administration Protocol 5 MCG/KG/MIN Isosorbide Mononitrate 30 mg 06/11/17 10:00 06/17/17 09:06 Imdur - PO 30 mg DAILY JER[facility]ÍAS Administration Lidocaine HCl 20 ml 06/11/17 16:58 06/14/17 18:11 Xylocaine 2% Viscous Oral - MM 20 ml Q6HPO PRN Administration ORAL PAIN/MOUTH SORES Multi-Ingredient Ointment 1 applic 06/13/17 13:15 06/17/17 09:07 Zinc Oxide TP 1 applic BID JEREMÍAS Administration Rosuvastatin Calcium 5 mg 06/10/17 22:00 06/16/17 21:58 Crestor - PO 5 mg HS [facility] Administration Spironolactone 12.5 mg 06/14/17 10:06 06/17/17 09:06 Aldactone - PO 12.5 mg DAILY [facility] Administration Tamsulosin HCl 0.4 mg 06/11/17 08:30 06/17/17 09:06 Flomax - PO 0.4 mg DAILY@0830 [facility] Administration Trazodone HCl 50 mg 06/10/17 22:00 06/16/17 21:58 Desyrel - PO 50 mg HS JEREMÍAS Administration Home Medications Medication Instructions Recorded Aspirin [ASA -] 81 mg PO DAILY #30 tab.chew 05/08/17 Clopidogrel Bisulfate [Plavix -] 75 mg PO AM 05/10/17 Furosemide [Lasix] 40 mg PO AM 05/10/17 Carvedilol 6.25 mg PO BID 05/24/17 Isosorbide Mononitrate [Imdur -] 30 mg PO DAILY 05/24/17 Metoprolol Tartrate 37.5 mg PO BID 05/24/17 Tamsulosin HCl 0.4 mg PO DAILY 05/24/17 Simvastatin 20 mg PO HS 06/10/17 Spironolactone 25 mg PO DAILY 06/10/17 Trazodone HCl 50 mg PO HS 06/10/17 Intake & Output 06/14/17 06/15/17 06/16/17 06/17/17 23:59 23:59 23:59 23:59 Intake Total 284 920 5208 1250 Output Total 639 058 4298 1700 Balance -80 -260 -1750 -450 Weight 84.686 kg 86.353 kg 85.275 kg 85.275 kg ASSESSMENT AND PLAN: 87 y/o man with h/ o CAD, S/p CCABG, recent stenting, AICD placement , HTN, HL, and other medical problems who presented with worsening SOB and was found to have acute CHF exacerbation # 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 Patient was started on Dobutamine as per cardio, improving his urinary output, continue Lasix Iv increased to 2x per day as per nephro. continue Aspirin/plavix . Continue on Dobutamine as per cardio and nephro, patient is improving. monitor Is & Os, daily weight. # Acute dizziness improved , s/p ENT evalaution .contine cipro ear drops , patient has bl hearing aid. upon discharge to follow up with ENT # Acute renal failure over chronic 3.1-->2.7-->2.4 today, on dobutamine has good urinary output , nephro increased Lasix to BID dosing # Acute LE BL swelling on Lasix IV DVT px , will discontinue heparin since patient is having epistaxis, abdominal inj.site bleeding so will discontinue Visit type - Emergency Visit Emergency Visit: Yes ED Registration Date: 06/10/17 Care time: The patient presented to the Emergency Department on the above date and was hospitalized for further evaluation of their emergent condition. - New Patient This patient is new to me today: No - Critical Care Critical Care patient: No
[2017-06-17] MEDS: traZODone HCL 50 MG TABLET (FP) PO SCH (21:28)
[2017-06-17] MEDS: ROSUVASTATIN CA 5 MG TABLET (FP) PO SCH (21:28)
[2017-06-18] MEDS: ALPRAZolam 0.25 MG TABLET PO PRN ×2 (01:47→23:00)
[2017-06-18] MEDS: DOBUTAMINE 250 MG/D5W - 250 ML IV SCH ×2 (04:19→16:55)
[2017-06-18] MEDS: CLOPIDOGREL BISULFATE 75 MG TABLET (FP) PO SCH (06:09)
[2017-06-18] MEDS: FUROSEMIDE 40 MG/4 ML INJECTABLE VIAL IVPUSH SCH ×2 (06:09→16:45)
[2017-06-18 07:44] LABS: ANION GAP 11 (8-16); CO2 31 mmol/L (21-32); CREATININE 2.1 mg/dL (0.7-1.3); GLUCOSE,RANDOM 96 mg/dL (74-106); MAGNESIUM 2.4 mg/dL (1.8-2.4); PHOSPHOROUS 3.4 mg/dL (2.5-4.9)
[2017-06-18] MEDS ORDERED: PT OWN MED DRAWER 7, Y5N ONE (08:06)
[2017-06-18] MEDS: TAMSULOSIN HCL 0.4 MG CAP.ER.24H (FP) PO SCH (09:06)
[2017-06-18] MEDS: CARVEDILOL 6.25 MG TABLET (FP) PO SCH ×2 (09:06→21:38)
[2017-06-18] MEDS: ASPIRIN 81 MG CHEWABLE TABLETS PO SCH (09:06)
[2017-06-18] MEDS: SPIRONOLACTONE 25 MG TABLET (FP) PO SCH (09:06)
[2017-06-18] MEDS: ISOSORBIDE MONONITRATE 30 MG TAB.SR.24H (FP) PO SCH (09:06)
[2017-06-18] MEDS: BACITRACIN 15 GM TUBE TOPICAL OINTMENT TP SCH ×2 (09:34→21:44)
[2017-06-18] MEDS: ZINC OXIDE 20% TOPICAL OINTMENT 30 GM TUBE TP SCH ×2 (09:35→21:46)
[2017-06-18] MEDS: CIPROFLOXACIN HCL 0.3% OPHTH 2.5ML BOTTLE NR SCH ×2 (09:35→21:45)
[2017-06-18] MEDS ORDERED: POTASSIUM CHLORIDE TABS 20 MEQ TABLET.ER (FP) PO ONE (10:00)
[2017-06-18] MEDS: POTASSIUM CHLORIDE TABS 20 MEQ TABLET.ER (FP) PO SCH ×2 (10:44→21:39)
--- NOTE | 2017-06-18 10:49 | PN ---
Progress Note, Physician History of Present Illness: pulmonary alert,oob-chair,feeling better,less dyspneic - Current Medication List Current Medications: Active Medications Alprazolam (Xanax -) 0.25 mg PO Q8H PRN PRN Reason: ANXIETY Last Admin: 06/18/17 01:47 Dose: 0.25 mg Aspirin (Asa -) 81 mg PO DAILY COUNT [facility]CLUDES [facility] Last Admin: 06/18/17 09:06 Dose: 81 mg Bacitracin (Bacitracin -) 1 applic TP BID COUNT INCLUDES [facility] Last Admin: 06/18/17 09:34 Dose: Not Given Carvedilol (Coreg -) 6.25 mg PO BID COUNT [facility]CLUDES [facility] Last Admin: 06/18/17 09:06 Dose: 6.25 mg Ciprofloxacin (Ciloxan 0.3% Eye Drops -) 4 drop NR BID COUNT [facility]CLUDES [facility] Last Admin: 06/18/17 09:35 Dose: 4 drop Clopidogrel Bisulfate (Plavix -) 75 mg PO AM COUNT [facility]CLUDES [facility] Last Admin: 06/18/17 06:09 Dose: 75 mg Furosemide (Lasix Injection -) 60 mg IVPUSH DAILY@0600 [facility] Last Admin: 06/18/17 06:09 Dose: 60 mg Furosemide (Lasix Injection -) 40 mg IVPUSH DAILY@1700 [facility] Last Admin: 06/17/17 18:17 Dose: 40 mg Dobutamine HCl/Dextrose (Dobutamine 250 Mg/D5w -) 250 mls @ 25.906 mls/hr IV TITR COUNT INCLUDES [facility]; 5 MCG/KG/MIN PRN Reason: Protocol Last Admin: 06/18/17 04:19 Dose: 25.906 mls/hr Isosorbide Mononitrate (Imdur -) 30 mg PO DAILY [facility]CLUDES [facility] Last Admin: 06/18/17 09:06 Dose: 30 mg Lidocaine HCl (Xylocaine 2% Viscous Oral -) 20 ml MM Q6HPO PRN PRN Reason: ORAL PAIN/MOUTH SORES Last Admin: 06/14/17 18:11 Dose: 20 ml Multi-Ingredient Ointment (Zinc Oxide) 1 applic TP BID COUNT [facility]CLUDES [facility] Last Admin: 06/18/17 09:35 Dose: Not Given Potassium Chloride (K-Dur -) 40 meq PO BID COUNT [facility]CLUDES [facility] Stop: 06/18/17 22:01 Last Admin: 06/18/17 10:44 Dose: 40 meq Rosuvastatin Calcium (Crestor -) 5 mg PO HS COUNT [facility]CLUDES [facility] Last Admin: 06/17/17 21:28 Dose: 5 mg Spironolactone (Aldactone -) 12.5 mg PO DAILY COUNT [facility]CLUDES [facility] Last Admin: 06/18/17 09:06 Dose: 12.5 mg Tamsulosin HCl (Flomax -) 0.4 mg PO DAILY@0830 [facility] Last Admin: 06/18/17 09:06 Dose: 0.4 mg Trazodone HCl (Desyrel -) 50 mg PO [facility] Last Admin: 06/17/17 21:28 Dose: 50 mg - Objective Vital Signs: Vital Signs Temperature 98.1 F 06/18/17 07:40 Pulse Rate 82 06/18/17 07:40 Respiratory Rate 20 06/18/17 08:00 Blood Pressure 123/69 06/18/17 07:40 O2 Sat by Pulse Oximetry (%) 95 06/18/17 08:00 Constitutional: Yes: Well Nourished, Calm Eyes: Yes: WNL, Other Neck: Yes: WNL Cardiovascular: Yes: Pulse Irregular, S1, S2 Respiratory: Yes: Rales (bilateral rales 1/2 up) Gastrointestinal: Yes: Normal Bowel Sounds, Soft Extremities: Yes: WNL Edema: Yes Labs: CBC, BMP 06/17/17 13:20 06/18/17 05:35 INR, PTT INR 1.50 (0.82-1.09) H 06/11/17 06:05 Problem List - Problems (1) CAD (coronary artery disease) Code(s): I25.10 - ATHSCL HEART DISEASE OF [place] CORONARY ARTERY W/O ANG PCTRS (2) CHF (congestive heart failure) Code(s): I50.9 - HEART FAILURE, UNSPECIFIED Qualifiers: Qualified Code(s): I50.9 - Heart failure, unspecified (3) Hypertension Code(s): I10 - ESSENTIAL (PRIMARY) HYPERTENSION (4) Renal insufficiency Code(s): N28.9 - DISORDER OF KIDNEY AND URETER, UNSPECIFIED (5) Dyspnea on exertion Code(s): R06.09 - OTHER FORMS OF DYSPNEA (6) SOB (shortness of breath) Code(s): R06.02 - SHORTNESS OF BREATH (7) Chronic kidney disease (CKD) stage G3a/A2, moderately decreased glomerular filtration rate (GFR) between 45-59 mL/min/1.73 square meter and albuminuria creatinine ratio between 30-299 mg/g Code(s): N18.3 - CHRONIC KIDNEY DISEASE, STAGE 3 (MODERATE) Assessment/Plan IMP DYSPNEA IMPROVING ACUTE ON CHRONIC CHF SEVERE LV DYSFUNCTION ASHD S/P CABG,STENTS PULMONARY HTN HTN CKD PLAN LASIX IV ALDACTONE DOBUTAMINE DRIP PER CARDIOLOGY PLAVIX O2 DAILY WTS INHALED BRONCHODILATORS MONITOR LYES ,RENAL FUNCTION REPLETE LYTES DR ANGELA Problem List - Problems (1) CAD (coronary artery disease) Code(s): I25.10 - ATHSCL HEART DISEASE OF [place] CORONARY ARTERY W/O ANG PCTRS (2) CHF (congestive heart failure) Code(s): I50.9 - HEART FAILURE, UNSPECIFIED Qualifiers: Congestive heart failure type: unspecified congestive heart failure type Congestive heart failure chronicity: acute on chronic Qualified Code(s): I50.9 - Heart failure, unspecified (3) Hypertension Code(s): I10 - ESSENTIAL (PRIMARY) HYPERTENSION (4) Renal insufficiency Code(s): N28.9 - DISORDER OF KIDNEY AND URETER, UNSPECIFIED (5) Dyspnea on exertion Code(s): R06.09 - OTHER FORMS OF DYSPNEA (6) SOB (shortness of breath) Code(s): R06.02 - SHORTNESS OF BREATH (7) Chronic kidney disease (CKD) stage G3a/A2, moderately decreased glomerular filtration rate (GFR) between 45-59 mL/min/1.73 square meter and albuminuria creatinine ratio between 30-299 mg/g Code(s): N18.3 - CHRONIC KIDNEY DISEASE, STAGE 3 (MODERATE)
--- NOTE | 2017-06-18 13:44 | PN ---
Progress Note (short form) - Note Progress Note: Renal Follow up for EDITA on CKD with volume overload Pt seen and examined at the bedside awake and alert sob is improved, leg edema improving able to ambulate Vital Signs Temperature 98.1 F 06/18/17 07:40 Pulse Rate 82 06/18/17 07:40 Respiratory Rate 20 06/18/17 08:00 Blood Pressure 123/69 06/18/17 07:40 O2 Sat by Pulse Oximetry (%) 95 06/18/17 08:00 Intake & Output 06/15/17 06/16/17 06/17/17 06/18/17 23:59 23:59 23:59 23:59 Intake Total 490 1340 1720 1080 Output Total 750 3090 2700 850 Balance -260 -6622 -980 230 Weight 190 lb 6 oz 188 lb 188 lb 183 lb 3.2 oz Gen: NAD CVS: RRR Lungs :Dec BS at lung bases Abd: soft NT/ND Ext: 2+ edema CBC, BMP 06/17/17 13:20 06/18/17 05:35 Current Medications Alprazolam (Xanax -) 0.25 mg PO Q8H PRN PRN Reason: ANXIETY Last Admin: 06/18/17 01:47 Dose: 0.25 mg Aspirin (Asa -) 81 mg PO DAILY [facility] Last Admin: 06/18/17 09:06 Dose: 81 mg Bacitracin (Bacitracin -) 1 applic TP BID [facility] Last Admin: 06/18/17 09:34 Dose: Not Given Carvedilol (Coreg -) 6.25 mg PO BID [facility] Last Admin: 06/18/17 09:06 Dose: 6.25 mg Ciprofloxacin (Ciloxan 0.3% Eye Drops -) 4 drop NR BID [facility] Last Admin: 06/18/17 09:35 Dose: 4 drop Clopidogrel Bisulfate (Plavix -) 75 mg PO AM [facility] Last Admin: 06/18/17 06:09 Dose: 75 mg Furosemide (Lasix Injection -) 60 mg IVPUSH DAILY@0600 [facility] Last Admin: 06/18/17 06:09 Dose: 60 mg Furosemide (Lasix Injection -) 40 mg IVPUSH DAILY@1700 [facility] Last Admin: 06/17/17 18:17 Dose: 40 mg Dobutamine HCl/Dextrose (Dobutamine 250 Mg/D5w -) 250 mls @ 25.906 mls/hr IV TITR [facility]; 5 MCG/KG/MIN PRN Reason: Protocol Last Admin: 06/18/17 04:19 Dose: 25.906 mls/hr Isosorbide Mononitrate (Imdur -) 30 mg PO DAILY [facility] Last Admin: 06/18/17 09:06 Dose: 30 mg Lidocaine HCl (Xylocaine 2% Viscous Oral -) 20 ml MM Q6HPO PRN PRN Reason: ORAL PAIN/MOUTH SORES Last Admin: 06/14/17 18:11 Dose: 20 ml Multi-Ingredient Ointment (Zinc Oxide) 1 applic TP BID [facility] Last Admin: 06/18/17 09:35 Dose: Not Given Potassium Chloride (K-Dur -) 40 meq PO BID [facility] Stop: 06/18/17 22:01 Last Admin: 06/18/17 10:44 Dose: 40 meq Rosuvastatin Calcium (Crestor -) 5 mg PO [facility] Last Admin: 06/17/17 21:28 Dose: 5 mg Spironolactone (Aldactone -) 12.5 mg PO DAILY [facility] Last Admin: 06/18/17 09:06 Dose: 12.5 mg Tamsulosin HCl (Flomax -) 0.4 mg PO DAILY@0830 [facility] Last Admin: 06/18/17 09:06 Dose: 0.4 mg Trazodone HCl (Desyrel -) 50 mg PO [facility] Last Admin: 06/17/17 21:28 Dose: 50 mg A/P 87 year old gentleman with PMhx of CAD s/p CABG, recent NSTEMI with Cardiac cath with PCI, CHF with AICD, Hypertension, COPD, CKD with baseline Cr of 1.6 to 2 presents with complaints of LE swelling and SOB and found to have CHF exacerbation with concurrent EDITA Cr 2.3-3.1. 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
--- NOTE | 2017-06-18 15:09 | PN ---
Physical Exam: SUBJECTIVE: Patient seen and examined. No acute events overnight. He feels much better than yesterday. He offers no complaints. OBJECTIVE: Vital Signs Period Temp Pulse Resp BP Sys/العلي Pulse Ox Last 24 Hr 97.7 F-98.6 F 77-86 20-20 105-128/50-69 95-98 GENERAL: The patient is awake, alert, and fully oriented, in no acute distress. HEAD: Normal with no signs of trauma. ENT: oral ulcer under tongue. Bleeding from right nostril. NECK: supple. LUNGS: B/L lower lung crackles HEART: + JVD, Regular rate and rhythm, S1, S2 without murmur, rub or gallop. ABDOMEN: Soft, nontender, nondistended, normoactive bowel sounds, no guarding, no rebound, no hepatosplenomegaly, no masses. EXTREMITIES: 2+ pulses, B/L LE 2+ edema (improving) PSYCH: Normal mood, normal affect. SKIN: dry, 1cm left inner buttock tear improving Laboratory Results - last 24 hr 06/18/17 06/18/17 05:22 05:35 Sodium 138 Potassium 3.0 L Chloride 96 L Carbon Dioxide 31 Anion Gap 11 BUN 51 H Creatinine 2.1 H POC Glucometer 113 Random Glucose 96 Calcium 8.0 L Phosphorus 3.4 Magnesium 2.4 Active Medications Generic Name Dose Route Start Last Admin Trade Name Freq PRN Reason Stop Dose Admin Alprazolam 0.25 mg 06/16/17 16:42 06/18/17 01:47 Xanax - PO 0.25 mg Q8H PRN Administration ANXIETY Aspirin 81 mg 06/11/17 10:00 06/18/17 09:06 Asa - PO 81 mg DAILY [facility] Administration Bacitracin 1 applic 06/13/17 13:15 06/18/17 09:34 Bacitracin - TP Not Given BID [facility] Carvedilol 6.25 mg 06/13/17 14:37 06/18/17 09:06 Coreg - PO 6.25 mg BID [facility] Administration Ciprofloxacin 4 drop 06/14/17 15:00 06/18/17 09:35 Ciloxan 0.3% Eye Drops - NR 4 drop BID [facility] Administration Clopidogrel Bisulfate 75 mg 06/11/17 07:00 06/18/17 06:09 Plavix - PO 75 mg AM [facility] Administration Furosemide 60 mg 06/13/17 06:00 06/18/17 06:09 Lasix Injection - IVPUSH 60 mg DAILY@0600 [facility] Administration Furosemide 40 mg 06/17/17 17:00 06/17/17 18:17 Lasix Injection - IVPUSH 40 mg DAILY@1700 [facility] Administration Dobutamine HCl/Dextrose 250 mls @ 25.906 mls/hr 06/15/17 15:30 06/18/17 04:19 Dobutamine 250 Mg/D5w - IV 25.906 mls/hr TITR [facility] Administration Protocol 5 MCG/KG/MIN Isosorbide Mononitrate 30 mg 06/11/17 10:00 06/18/17 09:06 Imdur - PO 30 mg DAILY [facility] Administration Lidocaine HCl 20 ml 06/11/17 16:58 06/14/17 18:11 Xylocaine 2% Viscous Oral - MM 20 ml Q6HPO PRN Administration ORAL PAIN/MOUTH SORES Multi-Ingredient Ointment 1 applic 06/13/17 13:15 06/18/17 09:35 Zinc Oxide TP Not Given BID [facility] Potassium Chloride 40 meq 06/18/17 10:00 06/18/17 10:44 K-Dur - PO 06/18/17 22:01 40 meq BID [facility] Administration Rosuvastatin Calcium 5 mg 06/10/17 22:00 06/17/17 21:28 Crestor - PO 5 mg HS [facility] Administration Spironolactone 12.5 mg 06/14/17 10:06 06/18/17 09:06 Aldactone - PO 12.5 mg DAILY [facility] Administration Tamsulosin HCl 0.4 mg 06/11/17 08:30 06/18/17 09:06 Flomax - PO 0.4 mg DAILY@0830 [facility] Administration Trazodone HCl 50 mg 06/10/17 22:00 06/17/17 21:28 Desyrel - PO 50 mg HS [facility] Administration ASSESSMENT/PLAN: 87M with multiple medical problems presents to the hospital with acute on chronic left sided systolic heart failure and worsening orthopnea. #Acute on chronic CHF left sided systolic exacerbation: likely secondary to medication non compliance vs NSTEMI. -continue lasix 60mg IV push daily and add 40mg IV push qpm (weight down to 183 from 188 yesterday) -Continue coreg 6.25 mg BID cardiology consult appreciated: If BP remains low, will likely switch to Metoprolol XL 12.5 PO Daily -telemetry -F/up labs in AM -spironolactone -Imdur -start ALYCE/Arb when creatinine back to baseline #Acute on Chronic Renal insuffiency in setting of CHF/Volume overload -Likely EDITA due to renal hypoprofusion in setting of CHF and transient intravascular volume depletion with IV diuretics as per Nephrology -continue dobutamine drip to maintain systemic perfusion and preserve end-organ performance as per nephro -BUN/Creatinine improving #Left inner buttock tear - Bacitracin TP #Urinary Retention -Newberry placed as per nephro #Anxiety -Xanax .25mg Q8 prn for anxiety attacks #Dizziness and possible vertigo -patient recent history of otitis media -Continue Cipro ear drops per ENT -f/u ENT outpatient #Oral ulcer: likely from dentures -Zylocaine 2% -resolved -F/U Dentist outpatient #Troponinemia: Possible NSTEMI but most likely demand ischemia from CHF exacerbation but it is also possible NSTEMI led to his current symptoms peaked at 0.9 then trended downwards likely demand vs CHF exacerbation cardiology on board echo noted #Transaminitis: anicteric likely secondary to liver congestion from CHF exacerbation LFTs improved #CAD: see above statin aspirin #HTN: coreg 6.25 BID IMDUR 30mg po daily #Hyperglycemia: fingersticks ACHS to monitor glucose values. HbA1C 6.5 patient diabetic type 2 fingersticks well controlled at this time #COPD: not in acute exacerbation at this time pulmonology consult appreciated bronchodialtors PRN O2 PRN #CKD: Creatinine at baseline will continue to trend and monitor #BPH: restart home dose of flomax #Insomnia: trazadone FEN: Not on IV Fluids Given Potassium 40mg BID (Level 3.0 today) Strict sodium diet PPx: Held Heparin due to epistaxis as per cardio no GI PPx indicated no PT consult needed patient is ambulating with a cane Visit type - Emergency Visit Emergency Visit: Yes ED Registration Date: 06/10/17 Care time: The patient presented to the Emergency Department on the above date and was hospitalized for further evaluation of their emergent condition. - New Patient This patient is new to me today: No - Critical Care Critical Care patient: No
--- NOTE | 2017-06-18 19:53 | PN ---
Teaching Attending Note Name of Resident: Kelsy Red ATTENDING PHYSICIAN STATEMENT I saw and evaluated the patient. I reviewed the resident's note and discussed the case with the resident. I agree with the resident's findings and plan as documented. SUBJECTIVE: Patient is feeling better, swelling of his lower extremities are improving. OBJECTIVE: Vital Signs Temperature 98.4 F 06/18/17 14:00 Pulse Rate 78 06/18/17 14:00 Respiratory Rate 18 06/18/17 14:00 Blood Pressure 105/50 06/18/17 14:00 O2 Sat by Pulse Oximetry (%) 95 06/18/17 08:00 CBCD WBC 4.8 K/mm3 (4.0-10.0) 06/17/17 13:20 RBC 3.81 M/mm3 (4.00-5.60) L 06/17/17 13:20 Hgb 11.1 GM/dL (11.7-16.9) L 06/17/17 13:20 Hct 33.9 % (35.4-49) L 06/17/17 13:20 MCV 88.9 fl (80-96) 06/17/17 13:20 MCHC 32.8 g/dl (32.0-35.9) 06/17/17 13:20 RDW 15.3 % (11.9-15.9) 06/17/17 13:20 Plt Count 110 K/MM3 (134-434) L 06/17/17 13:20 MPV 9.1 fl (7.5-11.1) 06/17/17 13:20 CMP Sodium 138 mmol/L (136-145) 06/18/17 05:35 Potassium 3.0 mmol/L (3.5-5.1) L 06/18/17 05:35 Chloride 96 mmol/L (98-107) L 06/18/17 05:35 Carbon Dioxide 31 mmol/L (21-32) 06/18/17 05:35 Anion Gap 11 (8-16) 06/18/17 05:35 BUN 51 mg/dL (7-18) H 06/18/17 05:35 Creatinine 2.1 mg/dL (0.7-1.3) H 06/18/17 05:35 Creat Clearance w eGFR 25.74 (>60) 06/17/17 07:00 Random Glucose 96 mg/dL (74-106) 06/18/17 05:35 Calcium 8.0 mg/dL (8.5-10.1) L 06/18/17 05:35 Total Bilirubin 1.0 mg/dL (0.2-1.0) 06/17/17 07:00 AST 17 U/L (15-37) D 06/17/17 07:00 ALT 36 U/L (12-78) 06/17/17 07:00 Alkaline Phosphatase 101 U/L (45-117) 06/17/17 07:00 Total Protein 6.2 g/dl (6.4-8.2) L 06/17/17 07:00 Albumin 3.2 g/dl (3.4-5.0) L 06/17/17 07:00 CARDIAC ENZYMES Creatine Kinase 417 IU/L (39-308) H 06/10/17 19:43 Troponin I 0.45 ng/ml (0.00-0.05) H D 06/12/17 01:00 Current Medications Generic Name Dose Route Start Last Admin Trade Name Freq PRN Reason Stop Dose Admin Alprazolam 0.25 mg 06/16/17 16:42 06/18/17 01:47 Xanax - PO 0.25 mg Q8H PRN Administration ANXIETY Aspirin 81 mg 06/11/17 10:00 06/18/17 09:06 Asa - PO 81 mg DAILY [facility] Administration Bacitracin 1 applic 06/13/17 13:15 06/18/17 09:34 Bacitracin - TP Not Given BID [facility] Carvedilol 6.25 mg 06/13/17 14:37 06/18/17 09:06 Coreg - PO 6.25 mg BID [facility] Administration Ciprofloxacin 4 drop 06/14/17 15:00 06/18/17 09:35 Ciloxan 0.3% Eye Drops - NR 4 drop BID [facility] Administration Clopidogrel Bisulfate 75 mg 06/11/17 07:00 06/18/17 06:09 Plavix - PO 75 mg AM [facility] Administration Furosemide 60 mg 06/13/17 06:00 06/18/17 06:09 Lasix Injection - IVPUSH 60 mg DAILY@0600 [facility] Administration Furosemide 40 mg 06/17/17 17:00 06/18/17 16:45 Lasix Injection - IVPUSH 40 mg DAILY@1700 [facility] Administration Dobutamine HCl/Dextrose 250 mls @ 25.906 mls/hr 06/15/17 15:30 06/18/17 16:55 Dobutamine 250 Mg/D5w - IV 25.906 mls/hr TITR [facility]ER[facility]AS Administration Protocol 5 MCG/KG/MIN Isosorbide Mononitrate 30 mg 06/11/17 10:00 06/18/17 09:06 Imdur - PO 30 mg DAILY [facility] Administration Lidocaine HCl 20 ml 06/11/17 16:58 06/14/17 18:11 Xylocaine 2% Viscous Oral - MM 20 ml Q6HPO PRN Administration ORAL PAIN/MOUTH SORES Multi-Ingredient Ointment 1 applic 06/13/17 13:15 06/18/17 09:35 Zinc Oxide TP Not Given BID [facility] Potassium Chloride 40 meq 06/18/17 10:00 06/18/17 10:44 K-Dur - PO 06/18/17 22:01 40 meq BID [facility] Administration Rosuvastatin Calcium 5 mg 06/10/17 22:00 06/17/17 21:28 Crestor - PO 5 mg HS [facility] Administration Spironolactone 12.5 mg 06/14/17 10:06 06/18/17 09:06 Aldactone - PO 12.5 mg DAILY [facility] Administration Tamsulosin HCl 0.4 mg 06/11/17 08:30 06/18/17 09:06 Flomax - PO 0.4 mg DAILY@0830 [facility] Administration Trazodone HCl 50 mg 06/10/17 22:00 06/17/17 21:28 Desyrel - PO 50 mg HS [facility] Administration Home Medications Medication Instructions Recorded Aspirin [ASA -] 81 mg PO DAILY #30 tab.chew 05/08/17 Clopidogrel Bisulfate [Plavix -] 75 mg PO AM 05/10/17 Furosemide [Lasix] 40 mg PO AM 05/10/17 Carvedilol 6.25 mg PO BID 05/24/17 Isosorbide Mononitrate [Imdur -] 30 mg PO DAILY 05/24/17 Metoprolol Tartrate 37.5 mg PO BID 05/24/17 Tamsulosin HCl 0.4 mg PO DAILY 05/24/17 Simvastatin 20 mg PO HS 06/10/17 Spironolactone 25 mg PO DAILY 06/10/17 Trazodone HCl 50 mg PO HS 06/10/17 Intake & Output 06/15/17 06/16/17 06/17/17 06/18/17 23:59 23:59 23:59 23:59 Intake Total 490 1340 1720 1380 Output Total 750 3090 2700 850 Balance -005 -1177 -331 445 Weight 86.353 kg 85.275 kg 85.275 kg 83.098 kg PE: per resident's note ASSESSMENT AND PLAN: 87 y/o man with h/ o CAD, S/p CCABG, recent stenting, AICD placement , HTN, HL, and other medical problems who presented with worsening SOB and was found to have acute CHF exacerbation # Acute on chronic Systolic and diastolic CHF exacerbation with swelling of LE BL improving : daily weights, Is & Os.continue. Patient was started on Dobutamine will continue as per cardio, improving his urinary output, continue Lasix Iv increased to 2x per day as per nephro. continue Aspirin/plavix . Continue on Dobutamine as per cardio and nephro, patient is improving. monitor Is & Os, daily weight. # Acute dizziness improved , s/p ENT evalaution .contine cipro ear drops , patient has bl hearing aid. upon discharge to follow up with ENT # Acute renal failure over chronic 3.1-->2.7-->2.4-->2.1 today, on dobutamine has good urinary output , nephro increased Lasix to BID dosing # Acute LE BL swelling on Lasix IV DVT px , will discontinue heparin since patient is having epistaxis, abdominal inj.site bleeding as well, so will discontinue Visit type
--- NOTE | 2017-06-18 19:55 | PN ---
Progress Note (short form) - Note Progress Note: 87 year old male with H/o CAD/CABG,H/O severe LV systolic dysfunction,recent acute LV failure, NSTEMI,S/P PCI/stenting,S/P ICD and poor compliance. No SOB, PND or orthopnea,no chest pain or discomfort. progressive wt.loss on dobutamine.Improving renal function. Active Medications Generic Name Dose Route Start Last Admin Trade Name Freq PRN Reason Stop Dose Admin Alprazolam 0.25 mg 06/16/17 16:42 06/18/17 01:47 Xanax - PO 0.25 mg Q8H PRN Administration ANXIETY Aspirin 81 mg 06/11/17 10:00 06/18/17 09:06 Asa - PO 81 mg DAILY [facility]ER[facility]AS Administration Bacitracin 1 applic 06/13/17 13:15 06/18/17 09:34 Bacitracin - TP Not Given BID [facility] Carvedilol 6.25 mg 06/13/17 14:37 06/18/17 09:06 Coreg - PO 6.25 mg BID [facility] Administration Ciprofloxacin 4 drop 06/14/17 15:00 06/18/17 09:35 Ciloxan 0.3% Eye Drops - NR 4 drop BID [facility] Administration Clopidogrel Bisulfate 75 mg 06/11/17 07:00 06/18/17 06:09 Plavix - PO 75 mg AM [facility] Administration Furosemide 60 mg 06/13/17 06:00 06/18/17 06:09 Lasix Injection - IVPUSH 60 mg DAILY@0600 [facility] Administration Furosemide 40 mg 06/17/17 17:00 06/18/17 16:45 Lasix Injection - IVPUSH 40 mg DAILY@1700 [facility] Administration Dobutamine HCl/Dextrose 250 mls @ 25.906 mls/hr 06/15/17 15:30 06/18/17 16:55 Dobutamine 250 Mg/D5w - IV 25.906 mls/hr TITR JEREMÍAS Administration Protocol 5 MCG/KG/MIN Isosorbide Mononitrate 30 mg 06/11/17 10:00 06/18/17 09:06 Imdur - PO 30 mg DAILY [facility] Administration Lidocaine HCl 20 ml 06/11/17 16:58 06/14/17 18:11 Xylocaine 2% Viscous Oral - MM 20 ml Q6HPO PRN Administration ORAL PAIN/MOUTH SORES Multi-Ingredient Ointment 1 applic 06/13/17 13:15 06/18/17 09:35 Zinc Oxide TP Not Given BID [facility] Potassium Chloride 40 meq 06/18/17 10:00 06/18/17 10:44 K-Dur - PO 06/18/17 22:01 40 meq BID [facility]ER[facility]AS Administration Rosuvastatin Calcium 5 mg 06/10/17 22:00 06/17/17 21:28 Crestor - PO 5 mg HS [facility] Administration Spironolactone 12.5 mg 06/14/17 10:06 06/18/17 09:06 Aldactone - PO 12.5 mg DAILY [facility] Administration Tamsulosin HCl 0.4 mg 06/11/17 08:30 06/18/17 09:06 Flomax - PO 0.4 mg DAILY@0830 [facility] Administration Trazodone HCl 50 mg 06/10/17 22:00 06/17/17 21:28 Desyrel - PO 50 mg HS [facility] Administration 87 old male in no acute distress,no pallor,cyanosis,clubbing or jaundice Intake & Output 06/15/17 06/16/17 06/17/17 06/18/17 23:59 23:59 23:59 23:59 Intake Total 490 1340 1720 1080 Output Total 750 3090 2700 850 Balance -260 -1750 -980 230 Weight 190 lb 6 oz 188 lb 188 lb 183 lb 3.2 oz Vital Signs - 8 hr 06/18/17 14:00 Temperature 98.4 F Pulse Rate 78 Respiratory 18 Rate Blood Pressure 105/50 NECK: No JVD,-VE HJR,carotids 2+ no bruits heard. HEARD: PMI in the 5th ICS,S1 and S2 are normal,DUARTE grade I/ 2nd Rt.ICS No diastolic murmur or gallops. LUNGS: Clear. ABDOMEN: Soft,nontender,no organomegaly or masses felt.Large area of ecchymosis of the abdominal wall with oozing from injection site. EXTREMITIES: 2+ RLE edema,no LLE edema.No calf tenderness. CBC, BMP 06/17/17 13:20 06/18/17 05:35 A: 1.CHF,NYHA class II 2.CAD/S/P CABG,recent NSTEMI,S/P PCI/stenting 3.Severe LV systolic dysfunction. 4.Hypokalemia 5.Poor compliance. 6.S/P ICD. 7.Acute on CKD(improving). 8.Anemia. 9.Uninary retention. P: 1.Continuie current therapy 2.If has ongoing side effects related to Betablocker,dose can be reduced further. 3.correction of K+ 4.F/U BMP
[2017-06-18] MEDS ORDERED: POLYETHYLENE GLYCOL 3350 119 GM BTL PO ONE (21:30)
[2017-06-18] MEDS: ROSUVASTATIN CA 5 MG TABLET (FP) PO SCH (21:38)
[2017-06-18] MEDS: traZODone HCL 50 MG TABLET (FP) PO SCH (21:39)
[2017-06-19] MEDS: FUROSEMIDE 40 MG/4 ML INJECTABLE VIAL IVPUSH SCH ×2 (06:06→18:23)
[2017-06-19] MEDS: CLOPIDOGREL BISULFATE 75 MG TABLET (FP) PO SCH (06:07)
[2017-06-19] MEDS: DOBUTAMINE 250 MG/D5W - 250 ML IV SCH ×2 (06:07→15:00)
[2017-06-19 07:53] LABS: ANION GAP 11 (8-16); CALCIUM 7.9 mg/dL (8.5-10.1); CO2 31 mmol/L (21-32); GLUCOSE,RANDOM 113 mg/dL (74-106); MAGNESIUM 2.3 mg/dL (1.8-2.4)
[2017-06-19] MEDS ORDERED: POLYETHYLENE GLYCOL 3350 119 GM BTL PO PRN (08:22)
[2017-06-19] MEDS: TAMSULOSIN HCL 0.4 MG CAP.ER.24H (FP) PO SCH (09:16)
[2017-06-19] MEDS: POTASSIUM CHLORIDE TABS 20 MEQ TABLET.ER (FP) PO SCH ×2 (09:16→21:30)
[2017-06-19] MEDS: ASPIRIN 81 MG CHEWABLE TABLETS PO SCH (09:16)
[2017-06-19] MEDS: CARVEDILOL 6.25 MG TABLET (FP) PO SCH ×2 (09:16→21:29)
[2017-06-19] MEDS: SPIRONOLACTONE 25 MG TABLET (FP) PO SCH (09:16)
[2017-06-19] MEDS: ISOSORBIDE MONONITRATE 30 MG TAB.SR.24H (FP) PO SCH (09:16)
[2017-06-19] MEDS: ZINC OXIDE 20% TOPICAL OINTMENT 30 GM TUBE TP SCH ×2 (09:17→21:30)
[2017-06-19] MEDS: CIPROFLOXACIN HCL 0.3% OPHTH 2.5ML BOTTLE NR SCH ×2 (09:17→21:31)
[2017-06-19] MEDS: BACITRACIN 15 GM TUBE TOPICAL OINTMENT TP SCH ×2 (09:17→21:30)
--- NOTE | 2017-06-19 11:19 | PN ---
Progress Note, Physician History of Present Illness: pulmonary alert,oob-chair,comfortable,-resp distress.pt remains on dobutamie drip - Current Medication List Current Medications: Active Medications Alprazolam (Xanax -) 0.25 mg PO Q8H PRN PRN Reason: ANXIETY Last Admin: 06/18/17 23:00 Dose: 0.25 mg Aspirin (Asa -) 81 mg PO DAILY [facility] Last Admin: 06/19/17 09:16 Dose: 81 mg Bacitracin (Bacitracin -) 1 applic TP BID [facility] Last Admin: 06/19/17 09:17 Dose: Not Given Carvedilol (Coreg -) 6.25 mg PO BID [facility] Last Admin: 06/19/17 09:16 Dose: 6.25 mg Ciprofloxacin (Ciloxan 0.3% Eye Drops -) 4 drop NR BID [facility] Last Admin: 06/19/17 09:17 Dose: 4 drop Clopidogrel Bisulfate (Plavix -) 75 mg PO AM [facility] Last Admin: 06/19/17 06:07 Dose: 75 mg Furosemide (Lasix Injection -) 60 mg IVPUSH DAILY@0600 [facility] Last Admin: 06/19/17 06:06 Dose: 60 mg Furosemide (Lasix Injection -) 40 mg IVPUSH DAILY@1700 [facility] Last Admin: 06/18/17 16:45 Dose: 40 mg Dobutamine HCl/Dextrose (Dobutamine 250 Mg/D5w -) 250 mls @ 25.906 mls/hr IV TITR [facility]ER[facility]AS; 5 MCG/KG/MIN PRN Reason: Protocol Last Admin: 06/19/17 06:07 Dose: 25.906 mls/hr Isosorbide Mononitrate (Imdur -) 30 mg PO DAILY [facility] Last Admin: 06/19/17 09:16 Dose: 30 mg Lidocaine HCl (Xylocaine 2% Viscous Oral -) 20 ml MM Q6HPO PRN PRN Reason: ORAL PAIN/MOUTH SORES Last Admin: 06/14/17 18:11 Dose: 20 ml Multi-Ingredient Ointment (Zinc Oxide) 1 applic TP BID [facility] Last Admin: 06/19/17 09:17 Dose: Not Given Polyethylene Glycol (Miralax (For Daily Use) -) 119 gm PO ONCE PRN PRN Reason: CONSTIPATION Last Admin: 06/19/17 09:17 Dose: 119 gm Potassium Chloride (K-Dur -) 40 meq PO BID [facility] Stop: 06/19/17 23:00 Last Admin: 06/19/17 09:16 Dose: 40 meq Rosuvastatin Calcium (Crestor -) 5 mg PO [facility] Last Admin: 06/18/17 21:38 Dose: 5 mg Spironolactone (Aldactone -) 12.5 mg PO DAILY [facility] Last Admin: 06/19/17 09:16 Dose: 12.5 mg Tamsulosin HCl (Flomax -) 0.4 mg PO DAILY@0830 [facility] Last Admin: 06/19/17 09:16 Dose: 0.4 mg Trazodone HCl (Desyrel -) 50 mg PO [facility] Last Admin: 06/18/17 21:39 Dose: 50 mg - Objective Vital Signs: Vital Signs Temperature 98.1 F 06/19/17 08:20 Pulse Rate 80 06/19/17 08:20 Respiratory Rate 18 06/19/17 08:20 Blood Pressure 123/66 06/19/17 08:20 O2 Sat by Pulse Oximetry (%) 98 06/19/17 08:00 Constitutional: Yes: Well Nourished, Calm Eyes: Yes: WNL HENT: Yes: WNL Neck: Yes: WNL Cardiovascular: Yes: Regular Rate and Rhythm, S1, S2 Respiratory: Yes: Rales (bilateral rales 1/3 up) Gastrointestinal: Yes: Normal Bowel Sounds, Soft Extremities: Yes: WNL Edema: Yes Labs: CBC, BMP 06/17/17 13:20 06/19/17 06:00 INR, PTT INR 1.50 (0.82-1.09) H 06/11/17 06:05 Problem List - Problems (1) CAD (coronary artery disease) Code(s): I25.10 - ATHSCL HEART DISEASE OF [place] CORONARY ARTERY W/O ANG PCTRS (2) CHF (congestive heart failure) Code(s): I50.9 - HEART FAILURE, UNSPECIFIED Qualifiers: Qualified Code(s): I50.9 - Heart failure, unspecified (3) Hypertension Code(s): I10 - ESSENTIAL (PRIMARY) HYPERTENSION (4) Renal insufficiency Code(s): N28.9 - DISORDER OF KIDNEY AND URETER, UNSPECIFIED (5) Dyspnea on exertion Code(s): R06.09 - OTHER FORMS OF DYSPNEA (6) SOB (shortness of breath) Code(s): R06.02 - SHORTNESS OF BREATH (7) Chronic kidney disease (CKD) stage G3a/A2, moderately decreased glomerular filtration rate (GFR) between 45-59 mL/min/1.73 square meter and albuminuria creatinine ratio between 30-299 mg/g Code(s): N18.3 - CHRONIC KIDNEY DISEASE, STAGE 3 (MODERATE) Assessment/Plan IMP DYSPNEA IMPROVING ACUTE ON CHRONIC CHF SEVERE LV DYSFUNCTION ASHD S/P CABG,STENTS PULMONARY HTN HTN CKD PLAN LASIX IV ALDACTONE DOBUTAMINE DRIP PER CARDIOLOGY PLAVIX O2 DAILY WTS INHALED BRONCHODILATORS MONITOR LYES ,RENAL FUNCTION REPLETE K DR ANGELA Problem List - Problems (1) CAD (coronary artery disease) Code(s): I25.10 - ATHSCL HEART DISEASE OF [place] CORONARY ARTERY W/O ANG PCTRS (2) CHF (congestive heart failure) Code(s): I50.9 - HEART FAILURE, UNSPECIFIED Qualifiers: Congestive heart failure type: unspecified congestive heart failure type Congestive heart failure chronicity: acute on chronic Qualified Code(s): I50.9 - Heart failure, unspecified (3) Hypertension Code(s): I10 - ESSENTIAL (PRIMARY) HYPERTENSION (4) Renal insufficiency Code(s): N28.9 - DISORDER OF KIDNEY AND URETER, UNSPECIFIED (5) Dyspnea on exertion Code(s): R06.09 - OTHER FORMS OF DYSPNEA (6) SOB (shortness of breath) Code(s): R06.02 - SHORTNESS OF BREATH (7) Chronic kidney disease (CKD) stage G3a/A2, moderately decreased glomerular filtration rate (GFR) between 45-59 mL/min/1.73 square meter and albuminuria creatinine ratio between 30-299 mg/g Code(s): N18.3 - CHRONIC KIDNEY DISEASE, STAGE 3 (MODERATE)
[2017-06-19] MEDS ORDERED: METOLAZONE 5 MG TABLET PO ONE ×2 (14:11→17:15)
--- NOTE | 2017-06-19 14:11 | PN ---
Progress Note (short form) - Note Progress Note: Renal Follow up for EDITA on CKD with volume overload Pt seen and examined in the [facility] reports feeling weak but sob and LE swelling improving denies any chest pain refused to remove bond yesterday Vital Signs Temperature 98.1 F 06/19/17 08:20 Pulse Rate 80 06/19/17 08:20 Respiratory Rate 18 06/19/17 08:20 Blood Pressure 123/66 06/19/17 08:20 O2 Sat by Pulse Oximetry (%) 98 06/19/17 08:00 Intake & Output 06/16/17 06/17/17 06/18/17 06/19/17 23:59 23:59 23:59 23:59 Intake Total 1340 1720 1380 430 Output Total 3090 2700 1550 1000 Balance -1750 -980 -170 -570 Weight 188 lb 188 lb 183 lb 3.2 oz 182 lb 9.6 oz Gen: NAD CVS: RRR Lungs :Dec BS at lung bases Abd: soft NT/ND Ext: 2+ edema CBC, BMP 06/17/17 13:20 06/19/17 06:00 Laboratory Tests 06/19/17 06:00 Calcium 7.9 L Phosphorus 3.0 Magnesium 2.3 Current Medications Alprazolam (Xanax -) 0.25 mg PO Q8H PRN PRN Reason: ANXIETY Last Admin: 06/18/17 23:00 Dose: 0.25 mg Aspirin (Asa -) 81 mg PO DAILY [facility] Last Admin: 06/19/17 09:16 Dose: 81 mg Bacitracin (Bacitracin -) 1 applic TP BID [facility] Last Admin: 06/19/17 09:17 Dose: Not Given Carvedilol (Coreg -) 6.25 mg PO BID [facility] Last Admin: 06/19/17 09:16 Dose: 6.25 mg Ciprofloxacin (Ciloxan 0.3% Eye Drops -) 4 drop NR BID [facility] Last Admin: 06/19/17 09:17 Dose: 4 drop Clopidogrel Bisulfate (Plavix -) 75 mg PO AM [facility] Last Admin: 06/19/17 06:07 Dose: 75 mg Furosemide (Lasix Injection -) 60 mg IVPUSH DAILY@0600 [facility] Last Admin: 06/19/17 06:06 Dose: 60 mg Furosemide (Lasix Injection -) 40 mg IVPUSH DAILY@1700 [facility] Last Admin: 06/18/17 16:45 Dose: 40 mg Dobutamine HCl/Dextrose (Dobutamine 250 Mg/D5w -) 250 mls @ 25.906 mls/hr IV TITR JEREMÍAS; 5 MCG/KG/MIN PRN Reason: Protocol Last Admin: 06/19/17 06:07 Dose: 25.906 mls/hr Isosorbide Mononitrate (Imdur -) 30 mg PO DAILY [facility] Last Admin: 06/19/17 09:16 Dose: 30 mg Lidocaine HCl (Xylocaine 2% Viscous Oral -) 20 ml MM Q6HPO PRN PRN Reason: ORAL PAIN/MOUTH SORES Last Admin: 06/14/17 18:11 Dose: 20 ml Multi-Ingredient Ointment (Zinc Oxide) 1 applic TP BID [facility] Last Admin: 06/19/17 09:17 Dose: Not Given Polyethylene Glycol (Miralax (For Daily Use) -) 119 gm PO ONCE PRN PRN Reason: CONSTIPATION Last Admin: 06/19/17 09:17 Dose: 119 gm Potassium Chloride (K-Dur -) 40 meq PO BID [facility] Stop: 06/19/17 23:00 Last Admin: 06/19/17 09:16 Dose: 40 meq Rosuvastatin Calcium (Crestor -) 5 mg PO [facility] Last Admin: 06/18/17 21:38 Dose: 5 mg Spironolactone (Aldactone -) 12.5 mg PO DAILY [facility] Last Admin: 06/19/17 09:16 Dose: 12.5 mg Tamsulosin HCl (Flomax -) 0.4 mg PO DAILY@0830 [facility] Last Admin: 06/19/17 09:16 Dose: 0.4 mg Trazodone HCl (Desyrel -) 50 mg PO [facility] Last Admin: 06/18/17 21:39 Dose: 50 mg A/P 87 year old gentleman with PMhx of CAD s/p CABG, recent NSTEMI with Cardiac cath with PCI, CHF with AICD, Hypertension, COPD, CKD with baseline Cr of 1.6 to 2 presents with complaints of LE swelling and SOB and found to have CHF exacerbation with concurrent EDITA Cr 2.3-3.1. #Acute on Chronic Renal insufficiency in setting of CHF/Volume overload Renal function improving and volume status improving on Dobutamine/Lasix will give low dose metolazone today to augment diuresis D/c Bond today Trend BUN/Cr, and daily weights Cardiology follow up Supplement K to keep > 3.5 Thank you Will follow Lobo Shrestha DO
--- NOTE | 2017-06-19 18:02 | PN ---
Progress Note (short form) - Note Progress Note: 87 year old male with H/o CAD/CABG,H/O severe LV systolic dysfunction,recent acute LV failure, NSTEMI,S/P PCI/stenting,S/P ICD,CKD and poor compliance. PT.is ambulating with SOB,no chest pain or discomfort,lightheadedness, presyncope or syncope.Progressive weighjt loss.Still has pedal edema which is partly related tovein striping and venous insufficiency. Active Medications Generic Name Dose Route Start Last Admin Trade Name Freq PRN Reason Stop Dose Admin Alprazolam 0.25 mg 06/16/17 16:42 06/18/17 01:47 Xanax - PO 0.25 mg Q8H PRN Administration ANXIETY Aspirin 81 mg 06/11/17 10:00 06/18/17 09:06 Asa - PO 81 mg DAILY [facility] Administration Bacitracin 1 applic 06/13/17 13:15 06/18/17 09:34 Bacitracin - TP Not Given BID JER[facility]ÍAS Carvedilol 6.25 mg 06/13/17 14:37 06/18/17 09:06 Coreg - PO 6.25 mg BID [facility] Administration Ciprofloxacin 4 drop 06/14/17 15:00 06/18/17 09:35 Ciloxan 0.3% Eye Drops - NR 4 drop BID [facility] Administration Clopidogrel Bisulfate 75 mg 06/11/17 07:00 06/18/17 06:09 Plavix - PO 75 mg AM [facility] Administration Furosemide 60 mg 06/13/17 06:00 06/18/17 06:09 Lasix Injection - IVPUSH 60 mg DAILY@0600 [facility] Administration Furosemide 40 mg 06/17/17 17:00 06/18/17 16:45 Lasix Injection - IVPUSH 40 mg DAILY@1700 [facility] Administration Dobutamine HCl/Dextrose 250 mls @ 25.906 mls/hr 06/15/17 15:30 06/18/17 16:55 Dobutamine 250 Mg/D5w - IV 25.906 mls/hr TITR JEREMÍAS Administration Protocol 5 MCG/KG/MIN Isosorbide Mononitrate 30 mg 06/11/17 10:00 06/18/17 09:06 Imdur - PO 30 mg DAILY [facility] Administration Lidocaine HCl 20 ml 06/11/17 16:58 06/14/17 18:11 Xylocaine 2% Viscous Oral - MM 20 ml Q6HPO PRN Administration ORAL PAIN/MOUTH SORES Multi-Ingredient Ointment 1 applic 06/13/17 13:15 06/18/17 09:35 Zinc Oxide TP Not Given BID [facility] Potassium Chloride 40 meq 06/18/17 10:00 06/18/17 10:44 K-Dur - PO 06/18/17 22:01 40 meq BID [facility]ER[facility]AS Administration Rosuvastatin Calcium 5 mg 06/10/17 22:00 06/17/17 21:28 Crestor - PO 5 mg HS JER[facility]AS Administration Spironolactone 12.5 mg 06/14/17 10:06 06/18/17 09:06 Aldactone - PO 12.5 mg DAILY [facility] Administration Tamsulosin HCl 0.4 mg 06/11/17 08:30 06/18/17 09:06 Flomax - PO 0.4 mg DAILY@0830 [facility] Administration Trazodone HCl 50 mg 06/10/17 22:00 06/17/17 21:28 Desyrel - PO 50 mg HS [facility]ER[facility] Administration 87 old male in no acute distress,no pallor,cyanosis,clubbing or jaundice Vital Signs - 8 hr 06/19/17 13:50 Temperature 98.2 F Pulse Rate 83 Respiratory 18 Rate Blood Pressure 117/70 Intake & Output 06/16/17 06/17/17 06/18/17 06/19/17 23:59 23:59 23:59 23:59 Intake Total 1340 1720 1380 430 Output Total 3090 2700 1550 1550 Balance -1750 -980 -170 -1120 Weight 188 lb 188 lb 183 lb 3.2 oz 182 lb 9.6 oz NECK: No JVD,-VE HJR,carotids 2+ no bruits heard. HEARD: PMI in the 5th ICS,S1 and S2 are normal,DUARTE grade I/ 2nd Rt.ICS No diastolic murmur or gallops. LUNGS: Clear. ABDOMEN: Soft,nontender,no organomegaly or masses felt.Large area of ecchymosis of the abdominal wall with oozing from injection site. EXTREMITIES: 2+ RLE edema,no LLE edema.No calf tenderness. CBC, BMP 06/17/17 13:20 06/19/17 06:00 A: 1.CHF,NYHA class II 2.CAD/S/P CABG,recent NSTEMI,S/P PCI/stenting 3.Severe LV systolic dysfunction. 4.Hypokalemia 5.Poor compliance. 6.S/P ICD. 7.Acute on CKD(improving). 8.Anemia. 9.Uninary retention. P: 1.Continue current therapy. 2.Dobutamine could be D/C'D. 3.correction of K+ 4.F/U BMP 5.Plan discharge if patient remains medically stable after he switched to oral diuretics. 6.Increase Aldactone to 12.5mg.po BID.
--- NOTE | 2017-06-19 18:24 | PN ---
Physical Exam: SUBJECTIVE: Patient seen and examined. No acute events overnight. He feels much better than yesterday. He offers no complaints. OBJECTIVE: Vital Signs Period Temp Pulse Resp BP Sys/العلي Pulse Ox Last 24 Hr 97 F-98.2 F 80-85 18-21 117-135/56-75 98-99 GENERAL: The patient is awake, alert, and fully oriented, in no acute distress. HEAD: Normal with no signs of trauma. ENT: oral ulcer under tongue. Bleeding from right nostril. NECK: supple. LUNGS: B/L lower lung crackles HEART: + JVD, Regular rate and rhythm, S1, S2 without murmur, rub or gallop. ABDOMEN: Soft, nontender, nondistended, normoactive bowel sounds, no guarding, no rebound, no hepatosplenomegaly, no masses. EXTREMITIES: 2+ pulses, B/L LE 2+ edema (improving) PSYCH: Normal mood, normal affect. SKIN: dry, 1cm left inner buttock tear improving Laboratory Results - last 24 hr 06/19/17 06:00 Sodium 136 Potassium 3.3 L Chloride 94 L Carbon Dioxide 31 Anion Gap 11 BUN 43 H Creatinine 2.0 H Random Glucose 113 H Calcium 7.9 L Phosphorus 3.0 Magnesium 2.3 Active Medications Generic Name Dose Route Start Last Admin Trade Name Isidoro PRN Reason Stop Dose Admin Aspirin 81 mg 06/11/17 10:00 06/19/17 09:16 Asa - PO 81 mg DAILY [facility] Administration Bacitracin 1 applic 06/13/17 13:15 06/19/17 09:17 Bacitracin - TP Not Given BID [facility] Carvedilol 6.25 mg 06/13/17 14:37 06/19/17 09:16 Coreg - PO 6.25 mg BID [facility] Administration Ciprofloxacin 4 drop 06/14/17 15:00 06/19/17 09:17 Ciloxan 0.3% Eye Drops - NR 4 drop BID [facility] Administration Clopidogrel Bisulfate 75 mg 06/11/17 07:00 06/19/17 06:07 Plavix - PO 75 mg AM [facility] Administration Furosemide 60 mg 06/13/17 06:00 06/19/17 06:06 Lasix Injection - IVPUSH 60 mg DAILY@0600 [facility] Administration Furosemide 40 mg 06/17/17 17:00 06/18/17 16:45 Lasix Injection - IVPUSH 40 mg DAILY@1700 [facility] Administration Dobutamine HCl/Dextrose 250 mls @ 25.906 mls/hr 06/15/17 15:30 06/19/17 15:00 Dobutamine 250 Mg/D5w - IV 25.906 mls/hr TITR JEREMÍAS Administration Protocol 5 MCG/KG/MIN Isosorbide Mononitrate 30 mg 06/11/17 10:00 06/19/17 09:16 Imdur - PO 30 mg DAILY [facility] Administration Lidocaine HCl 20 ml 06/11/17 16:58 06/14/17 18:11 Xylocaine 2% Viscous Oral - MM 20 ml Q6HPO PRN Administration ORAL PAIN/MOUTH SORES Multi-Ingredient Ointment 1 applic 06/13/17 13:15 06/19/17 09:17 Zinc Oxide TP Not Given BID [facility] Polyethylene Glycol 119 gm 06/19/17 08:22 06/19/17 09:17 Miralax (For Daily Use) - PO 119 gm ONCE PRN Administration CONSTIPATION Potassium Chloride 40 meq 06/19/17 10:00 06/19/17 09:16 K-Dur - PO 06/19/17 23:00 40 meq BID [facility] Administration Rosuvastatin Calcium 5 mg 06/10/17 22:00 06/18/17 21:38 Crestor - PO 5 mg HS [facility] Administration Spironolactone 12.5 mg 06/14/17 10:06 06/19/17 09:16 Aldactone - PO 12.5 mg DAILY [facility] Administration Tamsulosin HCl 0.4 mg 06/11/17 08:30 06/19/17 09:16 Flomax - PO 0.4 mg DAILY@0830 [facility] Administration Trazodone HCl 50 mg 06/10/17 22:00 06/18/17 21:39 Desyrel - PO 50 mg HS [facility] Administration ASSESSMENT/PLAN: 87M with multiple medical problems presents to the hospital with acute on chronic left sided systolic heart failure and worsening orthopnea. #Acute on chronic CHF left sided systolic exacerbation: likely secondary to medication non compliance vs NSTEMI. -continue lasix 60mg IV push daily and add 40mg IV push qpm (weight down to 182 from 183 yesterday) -given low dose metolazone by Dr. Srhestha today to augment diuresis -Continue coreg 6.25 mg BID -telemetry -F/up labs in AM -spironolactone -Imdur -start ALYCE/Arb when creatinine back to baseline -Plan discharge if patient remains medically stable after he switched to oral diuretics as per Dr. Hernandez (Cardiology) -Renal function improving and volume status improving on Dobutamine/Lasix #Acute on Chronic Renal insuffiency in setting of CHF/Volume overload -Likely EDITA due to renal hypoprofusion in setting of CHF and transient intravascular volume depletion with IV diuretics as per Nephrology -continue dobutamine drip to maintain systemic perfusion and preserve end-organ performance as per nephro -BUN/Creatinine improving -Renal function improving and volume status improving on Dobutamine/Lasix #Left inner buttock tear - Bacitracin TP #Urinary Retention -Newberry placed as per nephro #Anxiety -Xanax .25mg Q8 prn for anxiety attacks #Dizziness and possible vertigo -patient recent history of otitis media -Continue Cipro ear drops per ENT -f/u ENT outpatient #Oral ulcer: likely from dentures -Zylocaine 2% -resolved -F/U Dentist outpatient #Troponinemia: Possible NSTEMI but most likely demand ischemia from CHF exacerbation but it is also possible NSTEMI led to his current symptoms peaked at 0.9 then trended downwards likely demand vs CHF exacerbation cardiology on board echo noted #Transaminitis: anicteric likely secondary to liver congestion from CHF exacerbation LFTs improved #CAD: see above statin aspirin #HTN: coreg 6.25 BID IMDUR 30mg po daily #Hyperglycemia: fingersticks ACHS to monitor glucose values. HbA1C 6.5 patient diabetic type 2 fingersticks well controlled at this time #COPD: not in acute exacerbation at this time pulmonology consult appreciated bronchodialtors PRN O2 PRN #CKD: Creatinine at baseline will continue to trend and monitor #BPH: restart home dose of flomax #Insomnia: trazadone FEN: Not on IV Fluids Given Potassium 40mg BID Strict sodium diet PPx: Held Heparin due to epistaxis as per cardio no GI PPx indicated no PT consult needed patient is ambulating with a cane Visit type - Emergency Visit Emergency Visit: Yes ED Registration Date: 06/10/17 Care time: The patient presented to the Emergency Department on the above date and was hospitalized for further evaluation of their emergent condition. - New Patient This patient is new to me today: No - Critical Care Critical Care patient: No - Discharge Referral Referred to [facility] Med [facility] No
--- NOTE | 2017-06-19 20:18 | PN ---
Teaching Attending Note Name of Resident: Kelsy Red ATTENDING PHYSICIAN STATEMENT I saw and evaluated the patient. I reviewed the resident's note and discussed the case with the resident. I agree with the resident's findings and plan as documented. SUBJECTIVE: no SOB , lack of sleep OBJ: NAD , AAOX3 . HEENT: NC, AT . MMM CV: RRR, no MRG. Lungs: CTAB Ext: 2+ pitting edema on both legs from knee down. recent well healing scar on medial L calf. DP 2+ ASSESSMENT AND PLAN: 87 y/o man with h/ o CAD, S/p CCABG, recent stenting, AICD placement , HTN, HL, and other medical problems who presented with worsening SOB and was found to have acute CHF exacerbation 1- Acute on chronic Systolic and diastolic CHF: due to non compliance with meds. - COnt lasix to 60 mg .cont aldactone . received metolazone today - cont dobutamine todaY, can dc tomorrow - cont imdur and coreg - cont tomonitor renal function 2- EDITA on CKD : cont lasix and dobutamine for now cr at base line now 3- Transaminitis likely due to liver congestion resolved 4- HTN: coreg. imdur 5-H/o CAD . cont ASA and plavix . cont BB and imdur HLOC
[2017-06-19] MEDS: traZODone HCL 50 MG TABLET (FP) PO SCH (21:29)
[2017-06-19] MEDS: ROSUVASTATIN CA 5 MG TABLET (FP) PO SCH (21:30)
[2017-06-19] MEDS ORDERED: ALPRAZolam 0.25 MG TABLET PO PRN (22:40)
[2017-06-20] MEDS: DOBUTAMINE 250 MG/D5W - 250 ML IV SCH (02:17)
[2017-06-20] MEDS: FUROSEMIDE 40 MG/4 ML INJECTABLE VIAL IVPUSH SCH ×2 (06:26→17:25)
[2017-06-20] MEDS: CLOPIDOGREL BISULFATE 75 MG TABLET (FP) PO SCH (06:26)
[2017-06-20 08:11] LABS: EOSINOPHIL 3.3 % (0-4.5); MCH 28.7 pg (25.7-33.7); MCHC 32.5 g/dl (32.0-35.9); MEAN CELL VOLUME 88.3 fl (80-96); MEAN PLT VOLUME 9.6 fl (7.5-11.1); NEUTROPHILS 63.8 % (42.8-82.8); PLATELET COUNT 105 K/MM3 (134-434); RDW 15.4 % (11.9-15.9); WHITE BLOOD COUNT 4.7 K/mm3 (4.0-10.0)
[2017-06-20 08:50] LABS: ANION GAP 8 (8-16); CALCIUM 8.4 mg/dL (8.5-10.1); CO2 34 mmol/L (21-32); CREATININE 1.9 mg/dL (0.7-1.3); GLUCOSE,RANDOM 99 mg/dL (74-106); MAGNESIUM 2.4 mg/dL (1.8-2.4); PHOSPHOROUS 2.7 mg/dL (2.5-4.9)
[2017-06-20] MEDS: TAMSULOSIN HCL 0.4 MG CAP.ER.24H (FP) PO SCH (08:53)
[2017-06-20] MEDS: ZINC OXIDE 20% TOPICAL OINTMENT 30 GM TUBE TP SCH ×2 (09:45→21:37)
[2017-06-20] MEDS: SPIRONOLACTONE 25 MG TABLET (FP) PO SCH (09:49)
[2017-06-20] MEDS: ASPIRIN 81 MG CHEWABLE TABLETS PO SCH (09:49)
[2017-06-20] MEDS: ISOSORBIDE MONONITRATE 30 MG TAB.SR.24H (FP) PO SCH (09:49)
[2017-06-20] MEDS: BACITRACIN 15 GM TUBE TOPICAL OINTMENT TP SCH ×2 (09:51→21:37)
[2017-06-20] MEDS: CARVEDILOL 6.25 MG TABLET (FP) PO SCH ×2 (09:51→21:13)
[2017-06-20] MEDS: CIPROFLOXACIN HCL 0.3% OPHTH 2.5ML BOTTLE NR SCH ×2 (09:53→21:37)
[2017-06-20] MEDS ORDERED: SPIRONOLACTONE 25 MG TABLET (FP) PO ONE (10:53)
[2017-06-20] MEDS ORDERED: SPIRONOLACTONE 25 MG TABLET (FP) PO SCH (10:54)
--- NOTE | 2017-06-20 11:38 | PN ---
Progress Note (short form) - Note Progress Note: PULMONARY Denies shortness of breath or chest pain. No cough or wheezing. Remains on dobutamine gtt. Last Vital Signs Temp Pulse Resp BP Pulse Ox 98 F 84 20 120/58 99 06/20/17 05:56 06/20/17 05:56 06/20/17 05:56 06/20/17 05:56 06/19/17 20:52 Gen: NAD at rest Heart: RRR Lung: decreased breath sounds at the bases Abd: soft, nontender Ext: edema improving CBC, BMP 06/20/17 07:00 06/20/17 07:00 Active Medications Alprazolam (Xanax -) 0.25 mg PO Q8H PRN PRN Reason: ANXIETY Last Admin: 06/19/17 22:47 Dose: 0.25 mg Aspirin (Asa -) 81 mg PO DAILY [facility] Last Admin: 06/20/17 09:49 Dose: 81 mg Bacitracin (Bacitracin -) 1 applic TP BID [facility] Last Admin: 06/20/17 09:51 Dose: 1 applic Carvedilol (Coreg -) 6.25 mg PO BID [facility] Last Admin: 06/20/17 09:51 Dose: 6.25 mg Ciprofloxacin (Ciloxan 0.3% Eye Drops -) 4 drop NR BID [facility] Last Admin: 06/20/17 09:53 Dose: 4 drop Clopidogrel Bisulfate (Plavix -) 75 mg PO AM [facility] Last Admin: 06/20/17 06:26 Dose: 75 mg Furosemide (Lasix Injection -) 60 mg IVPUSH DAILY@0600 [facility] Last Admin: 06/20/17 06:26 Dose: 60 mg Furosemide (Lasix Injection -) 40 mg IVPUSH DAILY@1700 [facility] Last Admin: 06/19/17 18:23 Dose: 40 mg Isosorbide Mononitrate (Imdur -) 30 mg PO DAILY [facility] Last Admin: 06/20/17 09:49 Dose: 30 mg Lidocaine HCl (Xylocaine 2% Viscous Oral -) 20 ml MM Q6HPO PRN PRN Reason: ORAL PAIN/MOUTH SORES Last Admin: 06/14/17 18:11 Dose: 20 ml Multi-Ingredient Ointment (Zinc Oxide) 1 applic TP BID [facility] Last Admin: 06/20/17 09:45 Dose: 1 applic Polyethylene Glycol (Miralax (For Daily Use) -) 119 gm PO ONCE PRN PRN Reason: CONSTIPATION Last Admin: 06/19/17 09:17 Dose: 119 gm Potassium Chloride (K-Dur -) 40 meq PO BID [facility] Stop: 06/20/17 22:01 Rosuvastatin Calcium (Crestor -) 5 mg PO HS [facility] Last Admin: 06/19/17 21:30 Dose: 5 mg Spironolactone (Aldactone -) 12.5 mg PO ONCE ONE Stop: 06/20/17 10:54 Spironolactone (Aldactone -) 25 mg PO DAILY [facility] Tamsulosin HCl (Flomax -) 0.4 mg PO DAILY@0830 [facility] Last Admin: 06/20/17 08:53 Dose: 0.4 mg Trazodone HCl (Desyrel -) 50 mg PO HS [facility] Last Admin: 06/19/17 21:29 Dose: 50 mg A/P Acute on Chronic Systolic Heart Failure Pulmonary HTN Mitral Regurgitation CAD s/p CABG +Troponins Acute on Chronic Renal Failure - continue lasix, aldactone - dobutamine gtt per cardiology - monitor urine output, creatinine - daily weights - O2 to keep SPo2 >90% - ASA, plavix - DVT prophylaxis
[2017-06-20] MEDS: POTASSIUM CHLORIDE TABS 20 MEQ TABLET.ER (FP) PO SCH ×2 (12:08→21:38)
--- NOTE | 2017-06-20 14:38 | PN ---
Physical Exam: SUBJECTIVE: Patient seen and examined. No acute events overnight. He feels much better than yesterday. He offers no complaints. OBJECTIVE: Vital Signs Period Temp Pulse Resp BP Sys/العلي Pulse Ox Last 24 Hr 97.5 F-98 F 83-91 20-22 120-136/58-70 99-99 GENERAL: The patient is awake, alert, and fully oriented, in no acute distress. HEAD: Normal with no signs of trauma. ENT: oral ulcer under tongue. Bleeding from right nostril. NECK: supple. LUNGS: B/L lower lung crackles HEART: + JVD, Regular rate and rhythm, S1, S2 without murmur, rub or gallop. ABDOMEN: Soft, nontender, nondistended, normoactive bowel sounds, no guarding, no rebound, no hepatosplenomegaly, no masses. EXTREMITIES: 2+ pulses, B/L LE 2+ edema (improving) PSYCH: Normal mood, normal affect. SKIN: dry, 1cm left inner buttock tear improving Laboratory Results - last 24 hr 06/20/17 06/20/17 07:00 07:00 WBC 4.7 RBC 3.88 L Hgb 11.1 L Hct 34.3 L MCV 88.3 MCH 28.7 MCHC 32.5 RDW 15.4 Plt Count 105 L MPV 9.6 Neutrophils % 63.8 Lymphocytes % 19.4 Monocytes % 12.5 H Eosinophils % 3.3 Basophils % 1.0 Sodium 134 L Potassium 3.2 L Chloride 92 L Carbon Dioxide 34 H Anion Gap 8 BUN 40 H Creatinine 1.9 H Random Glucose 99 Calcium 8.4 L Phosphorus 2.7 Magnesium 2.4 Active Medications Generic Name Dose Route Start Last Admin Trade Name Freq PRN Reason Stop Dose Admin Alprazolam 0.25 mg 06/19/17 22:40 06/19/17 22:47 Xanax - PO 0.25 mg Q8H PRN Administration ANXIETY Aspirin 81 mg 06/11/17 10:00 06/20/17 09:49 Asa - PO 81 mg DAILY JEREMÍAS Administration Bacitracin 1 applic 06/13/17 13:15 06/20/17 09:51 Bacitracin - TP 1 applic BID JEREMÍAS Administration Carvedilol 6.25 mg 06/13/17 14:37 06/20/17 09:51 Coreg - PO 6.25 mg BID JEREMÍAS Administration Ciprofloxacin 4 drop 06/14/17 15:00 06/20/17 09:53 Ciloxan 0.3% Eye Drops - NR 4 drop BID JEREMÍAS Administration Clopidogrel Bisulfate 75 mg 06/11/17 07:00 06/20/17 06:26 Plavix - PO 75 mg AM JEREMÍAS Administration Furosemide 60 mg 06/13/17 06:00 06/20/17 06:26 Lasix Injection - IVPUSH 60 mg DAILY@0600 JEREMÍAS Administration Furosemide 40 mg 06/17/17 17:00 06/19/17 18:23 Lasix Injection - IVPUSH 40 mg DAILY@1700 JEREMÍAS Administration Heparin Sodium (Porcine) 5,000 unit 06/20/17 14:00 Heparin - SQ TID JEREMÍAS Isosorbide Mononitrate 30 mg 06/11/17 10:00 06/20/17 09:49 Imdur - PO 30 mg DAILY JEREMÍAS Administration Lidocaine HCl 20 ml 06/11/17 16:58 06/14/17 18:11 Xylocaine 2% Viscous Oral - MM 20 ml Q6HPO PRN Administration ORAL PAIN/MOUTH SORES Multi-Ingredient Ointment 1 applic 06/13/17 13:15 06/20/17 09:45 Zinc Oxide TP 1 applic BID JEREMÍAS Administration Polyethylene Glycol 119 gm 06/19/17 08:22 06/19/17 09:17 Miralax (For Daily Use) - PO 119 gm ONCE PRN Administration CONSTIPATION Potassium Chloride 40 meq 06/20/17 11:00 06/20/17 12:08 K-Dur - PO 06/20/17 22:01 40 meq BID JEREMÍAS Administration Rosuvastatin Calcium 5 mg 06/10/17 22:00 06/19/17 21:30 Crestor - PO 5 mg HS JEREMÍAS Administration Spironolactone 25 mg 06/21/17 10:00 Aldactone - PO DAILY JEREMÍAS Tamsulosin HCl 0.4 mg 06/11/17 08:30 06/20/17 08:53 Flomax - PO 0.4 mg DAILY@0830 JEREMÍAS Administration Trazodone HCl 50 mg 06/10/17 22:00 06/19/17 21:29 Desyrel - PO 50 mg HS JEREMÍAS Administration ASSESSMENT/PLAN: 87M with multiple medical problems presents to the hospital with acute on chronic left sided systolic heart failure and worsening orthopnea. #Acute on chronic CHF left sided systolic exacerbation: likely secondary to medication non compliance vs NSTEMI. -continue lasix 60mg IV push daily and add 40mg IV push qpm (weight down to 179 from 182 yesterday) -given low dose metolazone by Dr. Shrestha today to augment diuresis. Possibly start him 3 x a week on metolazone after discharge. -Continue coreg 6.25 mg BID -telemetry -F/up labs in AM -increased spironolactone to 25mg from 12.5 -Continue Imdur -start ALYCE/Arb when creatinine back to baseline -Plan discharge if patient remains medically stable after he switched to oral diuretics as per Dr. Hernandez (Cardiology) -D/c Dobutamine. Will monitor. #Acute on Chronic Renal insuffiency in setting of CHF/Volume overload -Likely EDITA due to renal hypoprofusion in setting of CHF and transient intravascular volume depletion with IV diuretics as per Nephrology -continue dobutamine drip to maintain systemic perfusion and preserve end-organ performance as per nephro -BUN/Creatinine improving -D/c dobutamine. Will monitor #Left inner buttock tear - Bacitracin TP #Anxiety -Xanax .25mg Q8 prn for anxiety attacks #Dizziness and possible vertigo -patient recent history of otitis media -Continue Cipro ear drops per ENT -f/u ENT outpatient #Oral ulcer: likely from dentures -improved -Xylocaine 2% prn q6 -F/U Dentist outpatient #Troponinemia: likely demand ischemia from CHF exacerbation but it is also possible NSTEMI led to his current symptoms peaked at 0.9 then trended downwards likely demand vs CHF exacerbation cardiology on board echo noted #Transaminitis: anicteric likely secondary to liver congestion from CHF exacerbation LFTs improved #CAD: see above statin aspirin #HTN: coreg 6.25 BID IMDUR 30mg po daily #Hyperglycemia: fingersticks ACHS to monitor glucose values. HbA1C 6.5 patient diabetic type 2 fingersticks well controlled at this time #COPD: not in acute exacerbation at this time pulmonology consult appreciated bronchodialtors PRN O2 PRN #CKD: Creatinine at baseline will continue to trend and monitor #BPH: restart home dose of flomax #Insomnia: trazadone FEN: Not on IV Fluids Given Potassium 40mg BID Strict sodium diet PPx: Heparin SQ no GI PPx indicated no PT consult needed patient is ambulating with a cane Visit type - Emergency Visit Emergency Visit: Yes ED Registration Date: 06/10/17 Care time: The patient presented to the Emergency Department on the above date and was hospitalized for further evaluation of their emergent condition. - New Patient This patient is new to me today: No - Critical Care Critical Care patient: No - Discharge Referral Referred to [facility] Med P.C.: No
[2017-06-20] MEDS: HEPARIN NA (PORCINE) 5,000 UNITS/ML 1ML VIAL SQ SCH ×2 (14:39→21:13)
[2017-06-20] MEDS ORDERED: METOLAZONE 2.5 MG TABLET (FP) PO ONE (15:04)
--- NOTE | 2017-06-20 15:09 | PN ---
Progress Note (short form) - Note Progress Note: Renal Follow up for EDITA on CKD with volume overload Pt seen and examined at the bedside awake and alert no acute complaints sob is improved, LE edema is improved Vital Signs Temperature 98 F 06/20/17 10:00 Pulse Rate 85 06/20/17 10:00 Respiratory Rate 22 06/20/17 10:00 Blood Pressure 132/63 06/20/17 10:00 O2 Sat by Pulse Oximetry (%) 99 06/20/17 09:00 Intake & Output 06/17/17 06/18/17 06/19/17 06/20/17 23:59 23:59 23:59 23:59 Intake Total 1720 1684 523 5129 Output Total 2700 1550 1870 1560 Balance -980 -170 -980 -550 Weight 188 lb 183 lb 3.2 oz 182 lb 9.6 oz 179 lb 12.8 oz Gen: NAD CVS: RRR Lungs :Dec BS at lung bases Abd: soft NT/ND Ext: 2+ edema CBC, BMP 06/20/17 07:00 06/20/17 07:00 Laboratory Tests 06/20/17 07:00 Calcium 8.4 L Phosphorus 2.7 Magnesium 2.4 Current Medications Alprazolam (Xanax -) 0.25 mg PO Q8H PRN PRN Reason: ANXIETY Last Admin: 06/19/17 22:47 Dose: 0.25 mg Aspirin (Asa -) 81 mg PO DAILY [facility] Last Admin: 06/20/17 09:49 Dose: 81 mg Bacitracin (Bacitracin -) 1 applic TP BID [facility] Last Admin: 06/20/17 09:51 Dose: 1 applic Carvedilol (Coreg -) 6.25 mg PO BID [facility] Last Admin: 06/20/17 09:51 Dose: 6.25 mg Ciprofloxacin (Ciloxan 0.3% Eye Drops -) 4 drop NR BID [facility] Last Admin: 06/20/17 09:53 Dose: 4 drop Clopidogrel Bisulfate (Plavix -) 75 mg PO AM [facility] Last Admin: 06/20/17 06:26 Dose: 75 mg Furosemide (Lasix Injection -) 60 mg IVPUSH DAILY@0600 [facility] Last Admin: 06/20/17 06:26 Dose: 60 mg Furosemide (Lasix Injection -) 40 mg IVPUSH DAILY@1700 [facility] Last Admin: 06/19/17 18:23 Dose: 40 mg Heparin Sodium (Porcine) (Heparin -) 5,000 unit SQ TID [facility] Last Admin: 06/20/17 14:39 Dose: 5,000 unit Isosorbide Mononitrate (Imdur -) 30 mg PO DAILY [facility] Last Admin: 06/20/17 09:49 Dose: 30 mg Lidocaine HCl (Xylocaine 2% Viscous Oral -) 20 ml MM Q6HPO PRN PRN Reason: ORAL PAIN/MOUTH SORES Last Admin: 06/14/17 18:11 Dose: 20 ml Metolazone (Zaroxolyn -) 2.5 mg PO ONCE ONE Stop: 06/20/17 15:05 Multi-Ingredient Ointment (Zinc Oxide) 1 applic TP BID [facility] Last Admin: 06/20/17 09:45 Dose: 1 applic Polyethylene Glycol (Miralax (For Daily Use) -) 119 gm PO ONCE PRN PRN Reason: CONSTIPATION Last Admin: 06/19/17 09:17 Dose: 119 gm Potassium Chloride (K-Dur -) 40 meq PO BID [facility] Stop: 06/20/17 22:01 Last Admin: 06/20/17 12:08 Dose: 40 meq Rosuvastatin Calcium (Crestor -) 5 mg PO [facility] Last Admin: 06/19/17 21:30 Dose: 5 mg Spironolactone (Aldactone -) 25 mg PO DAILY [facility] Tamsulosin HCl (Flomax -) 0.4 mg PO DAILY@0830 [facility] Last Admin: 06/20/17 08:53 Dose: 0.4 mg Trazodone HCl (Desyrel -) 50 mg PO [facility] Last Admin: 06/19/17 21:29 Dose: 50 mg A/P 87 year old gentleman with PMhx of CAD s/p CABG, recent NSTEMI with Cardiac cath with PCI, CHF with AICD, Hypertension, COPD, CKD with baseline Cr of 1.6 to 2 presents with complaints of LE swelling and SOB and found to have CHF exacerbation with concurrent EDITA Cr 2.3-3.1. #Acute on Chronic Renal insufficiency in setting of CHF/Volume overload Renal function now improved to baseline off dobutamine gtt, on IV Lasix transition to oral Torsemide 40 - 60mg Daily when ok with cardiology will give one dose of metolazone today pt is clinially improved continue Aldactone Supplement K with goal > 3.5 Thank you Will follow Lobo Shrestha DO
[2017-06-20] MEDS ORDERED: METOLAZONE 5 MG TABLET PO ONE (17:15)
--- NOTE | 2017-06-20 19:18 | PN ---
Teaching Attending Note Name of Resident: Kelsy Red ATTENDING PHYSICIAN STATEMENT I saw and evaluated the patient. I reviewed the resident's note and discussed the case with the resident. I agree with the resident's findings and plan as documented. SUBJECTIVE: no fever or chills , has no CP or SOB OBJECTIVE: NAD , AAOX3 . HEENT: NC, AT . MMM CV: RRR, no MRG. Lungs: CTAB Ext: 2+ pitting edema on both legs from knee down. recent well healing scar on medial L calf. DP 2+ ASSESSMENT AND PLAN: 87 y/o man with h/ o CAD, S/p CCABG, recent stenting, AICD placement , HTN, HL, and other medical problems who presented with worsening SOB and was found to have acute CHF exacerbation 1- Acute on chronic Systolic and diastolic CHF: due to non compliance with meds. - COnt lasix 100 mg daily. aldactone to 25 mg daily . received metolazone toda - hopefully we can switch to po diuretics tomorrow - dc dobutamine - cont imdur and coreg - cont to monitor renal function - since renal function is back to base line , star dc/w renal low dose ACEI - replete K 2- EDITA on CKD: back to base line 3- Transaminitis likely due to liver congestion resolved 4- HTN: coreg. imdur 5-H/o CAD . cont ASA and plavix . cont BB and imdur anticipate dc in 1-2 days
--- NOTE | 2017-06-20 20:16 | PN ---
Progress Note (short form) - Note Progress Note: 87 year old male with H/o CAD/CABG,H/O severe LV systolic dysfunction,recent acute LV failure, NSTEMI,S/P PCI/stenting,S/P ICD,CKD and poor compliance. No chest pain or discomfort,no SOB or PND.short run of accelerated idioventricular rhythm consisting of 8 beats in a row at18:46. Active Medications Alprazolam (Xanax -) 0.25 mg PO Q8H PRN PRN Reason: ANXIETY Last Admin: 06/19/17 22:47 Dose: 0.25 mg Aspirin (Asa -) 81 mg PO DAILY [facility] Last Admin: 06/20/17 09:49 Dose: 81 mg Bacitracin (Bacitracin -) 1 applic TP BID [facility] Last Admin: 06/20/17 09:51 Dose: 1 applic Carvedilol (Coreg -) 6.25 mg PO BID [facility] Last Admin: 06/20/17 09:51 Dose: 6.25 mg Ciprofloxacin (Ciloxan 0.3% Eye Drops -) 4 drop NR BID [facility] Last Admin: 06/20/17 09:53 Dose: 4 drop Clopidogrel Bisulfate (Plavix -) 75 mg PO AM [facility] Last Admin: 06/20/17 06:26 Dose: 75 mg Furosemide (Lasix Injection -) 60 mg IVPUSH DAILY@0600 [facility] Last Admin: 06/20/17 06:26 Dose: 60 mg Furosemide (Lasix Injection -) 40 mg IVPUSH DAILY@1700 [facility] Last Admin: 06/20/17 17:25 Dose: 40 mg Heparin Sodium (Porcine) (Heparin -) 5,000 unit SQ TID [facility] Last Admin: 06/20/17 14:39 Dose: 5,000 unit Isosorbide Mononitrate (Imdur -) 30 mg PO DAILY [facility] Last Admin: 06/20/17 09:49 Dose: 30 mg Lidocaine HCl (Xylocaine 2% Viscous Oral -) 20 ml MM Q6HPO PRN PRN Reason: ORAL PAIN/MOUTH SORES Last Admin: 06/14/17 18:11 Dose: 20 ml Multi-Ingredient Ointment (Zinc Oxide) 1 applic TP BID [facility] Last Admin: 06/20/17 09:45 Dose: 1 applic Polyethylene Glycol (Miralax (For Daily Use) -) 119 gm PO ONCE PRN PRN Reason: CONSTIPATION Last Admin: 06/19/17 09:17 Dose: 119 gm Potassium Chloride (K-Dur -) 40 meq PO BID [facility] Stop: 06/20/17 22:01 Last Admin: 06/20/17 12:08 Dose: 40 meq Rosuvastatin Calcium (Crestor -) 5 mg PO HS [facility] Last Admin: 06/19/17 21:30 Dose: 5 mg Spironolactone (Aldactone -) 25 mg PO DAILY [facility] Tamsulosin HCl (Flomax -) 0.4 mg PO DAILY@0830 [facility] Last Admin: 06/20/17 08:53 Dose: 0.4 mg Trazodone HCl (Desyrel -) 50 mg PO [facility] Last Admin: 06/19/17 21:29 Dose: 50 mg 87 old male in no acute distress,no pallor,cyanosis,clubbing or jaundice Vital Signs - 8 hr 06/20/17 06/20/17 15:00 17:00 Temperature 98.5 F 98.5 F Pulse Rate 74 81 Respiratory 18 20 Rate Blood Pressure 116/57 126/69 NECK: No JVD,-VE HJR,carotids 2+ no bruits heard. HEARD: PMI in the 5th ICS,S1 and S2 are normal,DUARTE grade I/ 2nd Rt.ICS No diastolic murmur or gallops. LUNGS: Clear. ABDOMEN: Soft,nontender,no organomegaly or masses felt. EXTREMITIES: 2+and 1+ left lower ext. edema,no calf tenderness. CBC, BMP 06/20/17 07:00 06/20/17 07:00 A: 1.CAD/S/P CABG,recent NSTEMI,S/P PCI/stenting. 2.CHF,resolving 3.Severe LV systolic dysfunction. 4.Hypokalemia 5.Poor compliance. 6.S/P ICD. 7.Acute on CKD(improving). 8.Anemia. 9.Uninary retention. P: 1.Continue current therapy. 2.Correctin of K+ 3.Discharge when medically stable.
[2017-06-20] MEDS ORDERED: PT OWN MED DRAWER 7, Y5N ONE (21:04)
[2017-06-20] MEDS ORDERED: ACETAMINOPHEN 325 MG TABLET (FP) PO ONE (21:11)
[2017-06-20] MEDS: ROSUVASTATIN CA 5 MG TABLET (FP) PO SCH (21:13)
[2017-06-20] MEDS: traZODone HCL 50 MG TABLET (FP) PO SCH (22:26)
[2017-06-21] MEDS: FUROSEMIDE 40 MG/4 ML INJECTABLE VIAL IVPUSH SCH (05:46)
[2017-06-21] MEDS: HEPARIN NA (PORCINE) 5,000 UNITS/ML 1ML VIAL SQ SCH ×2 (05:46→14:38)
[2017-06-21] MEDS: CLOPIDOGREL BISULFATE 75 MG TABLET (FP) PO SCH (06:03)
[2017-06-21 07:44] VITALS: BP 125/59
[2017-06-21 08:08] LABS: ANION GAP 15 (8-16); CALCIUM 8.3 mg/dL (8.5-10.1); CO2 31 mmol/L (21-32); CREATININE 1.9 mg/dL (0.7-1.3); GLUCOSE,RANDOM 100 mg/dL (74-106); MAGNESIUM 2.5 mg/dL (1.8-2.4)
[2017-06-21] MEDS: ASPIRIN 81 MG CHEWABLE TABLETS PO SCH (09:13)
[2017-06-21] MEDS: TAMSULOSIN HCL 0.4 MG CAP.ER.24H (FP) PO SCH (09:13)
[2017-06-21] MEDS: CARVEDILOL 6.25 MG TABLET (FP) PO SCH (09:14)
[2017-06-21] MEDS: ISOSORBIDE MONONITRATE 30 MG TAB.SR.24H (FP) PO SCH (09:14)
[2017-06-21] MEDS: ZINC OXIDE 20% TOPICAL OINTMENT 30 GM TUBE TP SCH (09:15)
[2017-06-21] MEDS: CIPROFLOXACIN HCL 0.3% OPHTH 2.5ML BOTTLE NR SCH (09:15)
[2017-06-21] MEDS: BACITRACIN 15 GM TUBE TOPICAL OINTMENT TP SCH (09:15)
[2017-06-21] MEDS ORDERED: SPIRONOLACTONE 25 MG TABLET (FP) PO SCH (10:00)
--- NOTE | 2017-06-21 10:18 | PN ---
Progress Note (short form) - Note Progress Note: S: 87 year old gentleman with history of CAD, s/p CABG, recent NSTEMI, severe left ventricular systolic dysfunction, history of syncope most likely related to ventricular arrythmias, s/p ICD for primary prophylaxis, chronic kidney disease, recurring CHF partly related to poor dietary compliance and discontinuing medications AMA. Patient is off dobutamine, denies dyspnea either at rest or with exertion, no PND or orthopnea. No chest pain or discomfort reported. Patient develops right lower extremity edema especially at the end of the day and has 1-2+ persistent right extremity edema related to venous insufficiency and vein stripping. Tolerating his medications. Active Medications Generic Name Dose Route Start Last Admin Trade Name Freq PRN Reason Stop Dose Admin Alprazolam 0.25 mg 06/19/17 22:40 06/19/17 22:47 Xanax - PO 0.25 mg Q8H PRN Administration ANXIETY Aspirin 81 mg 06/11/17 10:00 06/21/17 09:13 Asa - PO 81 mg DAILY JEREMÍAS Administration Bacitracin 1 applic 06/13/17 13:15 06/21/17 09:15 Bacitracin - TP Not Given BID JEREMÍAS Carvedilol 6.25 mg 06/13/17 14:37 06/21/17 09:14 Coreg - PO 6.25 mg BID JEREMÍAS Administration Ciprofloxacin 4 drop 06/14/17 15:00 06/21/17 09:15 Ciloxan 0.3% Eye Drops - NR 4 drop BID JEREMÍAS Administration Clopidogrel Bisulfate 75 mg 06/11/17 07:00 06/21/17 06:03 Plavix - PO 75 mg AM JEERMÍAS Administration Furosemide 60 mg 06/13/17 06:00 06/21/17 05:46 Lasix Injection - IVPUSH 60 mg DAILY@0600 JEREMÍAS Administration Furosemide 40 mg 06/17/17 17:00 06/20/17 17:25 Lasix Injection - IVPUSH 40 mg DAILY@1700 JEREMÍAS Administration Heparin Sodium (Porcine) 5,000 unit 06/20/17 14:00 06/21/17 05:46 Heparin - SQ 5,000 unit TID JEREMÍAS Administration Isosorbide Mononitrate 30 mg 06/11/17 10:00 06/21/17 09:14 Imdur - PO 30 mg DAILY JEREMÍAS Administration Lidocaine HCl 20 ml 06/11/17 16:58 09/01/17 18:11 Xylocaine 2% Viscous Oral - MM 20 ml Q6HPO PRN Administration ORAL PAIN/MOUTH SORES Multi-Ingredient Ointment 1 applic 06/13/17 13:15 06/21/17 09:15 Zinc Oxide TP Not Given BID JEREMÍAS Polyethylene Glycol 119 gm 06/19/17 08:22 06/19/17 09:17 Miralax (For Daily Use) - PO 119 gm ONCE PRN Administration CONSTIPATION Rosuvastatin Calcium 5 mg 06/10/17 22:00 06/20/17 21:13 Crestor - PO 5 mg HS JEREMÍAS Administration Spironolactone 25 mg 06/21/17 10:00 06/21/17 09:14 Aldactone - PO 25 mg DAILY JEREMÍAS Administration Tamsulosin HCl 0.4 mg 06/11/17 08:30 06/21/17 09:13 Flomax - PO 0.4 mg DAILY@0830 JEREMÍAS Administration Trazodone HCl 50 mg 06/10/17 22:00 06/20/17 22:26 Desyrel - PO 50 mg HS JEREMÍAS Administration O: 87 year old male was in no acute distress, no pallor, cyanosis, clubbing, or jaundice. Last Vital Signs Temp Pulse Resp BP Pulse Ox 97.8 F 76 20 125/59 96 06/21/17 07:43 06/21/17 07:43 06/21/17 07:43 06/21/17 07:43 06/20/17 20:13 Neck: Supple, no JVD, negative HJR, carotids were equal and upstrokes were normal, no thyromegaly appreciated. Heart: PMI was in the 5th intercostal space, no heaves or thrills, S1 and S2 were normal. DUARTE grade I/ 2nd Rt..ICS. No diastolic murmur or gallops were appreciated. Lungs: Clear on auscultation bilaterally. Abdomen: Soft, nontender, no hepatosplenomegaly appreciated, and no palpable masses were felt. Extremities:No calf tenderness. 1+ right lower extremity dependent edema. Pulses are normal. CBC, BMP 06/20/17 07:00 06/21/17 05:35 Laboratory Results - last 24 hr 06/21/17 05:35 Sodium 136 Potassium 3.2 L Chloride 90 L Carbon Dioxide 31 Anion Gap 15 BUN 39 H Creatinine 1.9 H Random Glucose 100 Calcium 8.3 L Phosphorus 3.0 Magnesium 2.5 H Impression: 1. Persistent hypokalemia. 2. CAD s/p CABG. s/p recent NSTEMI, s/p PCI/stenting. 3. Severe left ventricular systolic dysfunction. 4. CHF, resolving. 5. Recent syncope most probably related to ventricular arrythmias or hypotensive episode. 6. CKD. 7. S/p ICD. 8. Poor compliance. Recommendations: 1. Continue current therapy. 2. Close medical follow up on outpatient basis. 3. Correction of serum potassium levels, consider increasing the dose of aldactone to 25 mg BID under close observation of electrolytes/renal function. 4. Switch to oral Lasix. 5. Discharge when medically stable. 6. Outpatient follow up with PCP and cardiology. Attestation: Documentation prepared by Joann Blake, acting as medical professionals for Kelvin Campuzano MD.
--- NOTE | 2017-06-21 11:32 | PN ---
Progress Note, Physician History of Present Illness: pulmonary alert,feeling better,-resp distress,off dobutamine drip - Current Medication List Current Medications: Active Medications Alprazolam (Xanax -) 0.25 mg PO Q8H PRN PRN Reason: ANXIETY Last Admin: 06/19/17 22:47 Dose: 0.25 mg Aspirin (Asa -) 81 mg PO DAILY [facility] Last Admin: 06/21/17 09:13 Dose: 81 mg Bacitracin (Bacitracin -) 1 applic TP BID [facility] Last Admin: 06/21/17 09:15 Dose: Not Given Carvedilol (Coreg -) 6.25 mg PO BID [facility] Last Admin: 06/21/17 09:14 Dose: 6.25 mg Ciprofloxacin (Ciloxan 0.3% Eye Drops -) 4 drop NR BID [facility] Last Admin: 06/21/17 09:15 Dose: 4 drop Clopidogrel Bisulfate (Plavix -) 75 mg PO AM [facility] Last Admin: 06/21/17 06:03 Dose: 75 mg Furosemide (Lasix Injection -) 60 mg IVPUSH DAILY@0600 [facility] Last Admin: 06/21/17 05:46 Dose: 60 mg Furosemide (Lasix Injection -) 40 mg IVPUSH DAILY@1700 [facility] Last Admin: 06/20/17 17:25 Dose: 40 mg Heparin Sodium (Porcine) (Heparin -) 5,000 unit SQ TID [facility] Last Admin: 06/21/17 05:46 Dose: 5,000 unit Isosorbide Mononitrate (Imdur -) 30 mg PO DAILY [facility] Last Admin: 06/21/17 09:14 Dose: 30 mg Lidocaine HCl (Xylocaine 2% Viscous Oral -) 20 ml MM Q6HPO PRN PRN Reason: ORAL PAIN/MOUTH SORES Last Admin: 06/14/17 18:11 Dose: 20 ml Multi-Ingredient Ointment (Zinc Oxide) 1 applic TP BID [facility] Last Admin: 06/21/17 09:15 Dose: Not Given Polyethylene Glycol (Miralax (For Daily Use) -) 119 gm PO ONCE PRN PRN Reason: CONSTIPATION Last Admin: 06/19/17 09:17 Dose: 119 gm Rosuvastatin Calcium (Crestor -) 5 mg PO HS [facility] Last Admin: 06/20/17 21:13 Dose: 5 mg Spironolactone (Aldactone -) 25 mg PO DAILY [facility] Last Admin: 06/21/17 09:14 Dose: 25 mg Tamsulosin HCl (Flomax -) 0.4 mg PO DAILY@0830 [facility] Last Admin: 06/21/17 09:13 Dose: 0.4 mg Trazodone HCl (Desyrel -) 50 mg PO HS [facility] Last Admin: 06/20/17 22:26 Dose: 50 mg - Objective Vital Signs: Vital Signs Temperature 97.8 F 06/21/17 07:43 Pulse Rate 76 06/21/17 07:43 Respiratory Rate 20 06/21/17 08:00 Blood Pressure 125/59 06/21/17 07:43 O2 Sat by Pulse Oximetry (%) 98 06/21/17 08:00 Constitutional: Yes: Calm, Thin Eyes: Yes: WNL HENT: Yes: WNL Neck: Yes: WNL Cardiovascular: Yes: Regular Rate and Rhythm, S1, S2 Respiratory: Yes: Rales (bilateral rales1/3up) Gastrointestinal: Yes: Normal Bowel Sounds, Soft Extremities: Yes: WNL Edema: Yes (less edema jose raul) Problem List - Problems (1) CAD (coronary artery disease) Code(s): I25.10 - ATHSCL HEART DISEASE OF [place] CORONARY ARTERY W/O ANG PCTRS (2) CHF (congestive heart failure) Code(s): I50.9 - HEART FAILURE, UNSPECIFIED Qualifiers: Qualified Code(s): I50.9 - Heart failure, unspecified (3) Hypertension Code(s): I10 - ESSENTIAL (PRIMARY) HYPERTENSION (4) Renal insufficiency Code(s): N28.9 - DISORDER OF KIDNEY AND URETER, UNSPECIFIED (5) Dyspnea on exertion Code(s): R06.09 - OTHER FORMS OF DYSPNEA (6) SOB (shortness of breath) Code(s): R06.02 - SHORTNESS OF BREATH (7) Chronic kidney disease (CKD) stage G3a/A2, moderately decreased glomerular filtration rate (GFR) between 45-59 mL/min/1.73 square meter and albuminuria creatinine ratio between 30-299 mg/g Code(s): N18.3 - CHRONIC KIDNEY DISEASE, STAGE 3 (MODERATE) Assessment/Plan IMP DYSPNEA IMPROVING ACUTE ON CHRONIC CHF SEVERE LV DYSFUNCTION ASHD S/P CABG,STENTS PULMONARY HTN HTN CKD PLAN LASIX PO ALDACTONE PLAVIX O2 DAILY WTS INHALED BRONCHODILATORS MONITOR LYES ,RENAL FUNCTION DR ANGELA Problem List - Problems (1) CAD (coronary artery disease) Code(s): I25.10 - ATHSCL HEART DISEASE OF [place] CORONARY ARTERY W/O ANG PCTRS (2) CHF (congestive heart failure) Code(s): I50.9 - HEART FAILURE, UNSPECIFIED Qualifiers: Congestive heart failure type: unspecified congestive heart failure type Congestive heart failure chronicity: acute on chronic Qualified Code(s): I50.9 - Heart failure, unspecified (3) Hypertension Code(s): I10 - ESSENTIAL (PRIMARY) HYPERTENSION (4) Renal insufficiency Code(s): N28.9 - DISORDER OF KIDNEY AND URETER, UNSPECIFIED (5) Dyspnea on exertion Code(s): R06.09 - OTHER FORMS OF DYSPNEA (6) SOB (shortness of breath) Code(s): R06.02 - SHORTNESS OF BREATH (7) Chronic kidney disease (CKD) stage G3a/A2, moderately decreased glomerular filtration rate (GFR) between 45-59 mL/min/1.73 square meter and albuminuria creatinine ratio between 30-299 mg/g Code(s): N18.3 - CHRONIC KIDNEY DISEASE, STAGE 3 (MODERATE)
[2017-06-21] MEDS ORDERED: POTASSIUM CHLORIDE TABS 20 MEQ TABLET.ER (FP) PO ONE (11:46)
[2017-06-21] MEDS: KCL 10 MEQ IVPB 100 ML IVPB SCH ×3 (12:36→13:13)
[2017-06-21 14:35] VITALS: PULSE 72; TEMP 98
--- NOTE | 2017-06-21 14:38 | PN ---
Progress Note (short form) - Note Progress Note: Renal Follow up for EDITA on CKD with volume overload Pt seen and examined at the bedside awake and alert SOB and edema improving weight stable off dobutamine gtt Vital Signs Temperature 98 F 06/21/17 14:34 Pulse Rate 72 06/21/17 14:34 Respiratory Rate 20 06/21/17 14:34 Blood Pressure 125/59 06/21/17 07:43 O2 Sat by Pulse Oximetry (%) 98 06/21/17 08:00 Intake & Output 06/18/17 06/19/17 06/20/17 06/21/17 23:59 23:59 23:59 23:59 Intake Total 7960 576 7649 350 Output Total 1550 1870 1560 2300 Balance -170 -980 -300 -1950 Weight 183 lb 3.2 oz 182 lb 9.6 oz 179 lb 12.8 oz 178 lb 8 oz Gen: NAD CVS: RRR Lungs :Dec BS at lung bases Abd: soft NT/ND Ext: 2+ edema CBC, BMP 06/20/17 07:00 06/21/17 05:35 Current Medications Alprazolam (Xanax -) 0.25 mg PO Q8H PRN PRN Reason: ANXIETY Last Admin: 06/19/17 22:47 Dose: 0.25 mg Aspirin (Asa -) 81 mg PO DAILY COUNT INCLUDES THE [facility] Last Admin: 06/21/17 09:13 Dose: 81 mg Bacitracin (Bacitracin -) 1 applic TP BID COUNT INCLUDES THE [facility] Last Admin: 06/21/17 09:15 Dose: Not Given Carvedilol (Coreg -) 6.25 mg PO BID COUNT INCLUDES THE [facility] Last Admin: 06/21/17 09:14 Dose: 6.25 mg Ciprofloxacin (Ciloxan 0.3% Eye Drops -) 4 drop NR BID COUNT INCLUDES THE [facility] Last Admin: 06/21/17 09:15 Dose: 4 drop Clopidogrel Bisulfate (Plavix -) 75 mg PO AM COUNT INCLUDES THE [facility] Last Admin: 06/21/17 06:03 Dose: 75 mg Furosemide (Lasix Injection -) 60 mg IVPUSH DAILY@0600 COUNT INCLUDES THE [facility] Last Admin: 06/21/17 05:46 Dose: 60 mg Furosemide (Lasix Injection -) 40 mg IVPUSH DAILY@1700 COUNT INCLUDES THE [facility] Last Admin: 06/20/17 17:25 Dose: 40 mg Heparin Sodium (Porcine) (Heparin -) 5,000 unit SQ TID COUNT INCLUDES THE [facility] Last Admin: 06/21/17 05:46 Dose: 5,000 unit Potassium Chloride (Potassium Chloride 10 Meq Premix Ivpb -) 100 mls @ 100 mls/ hr IVPB Q60M COUNT INCLUDES THE [facility] Stop: 06/21/17 14:59 Last Admin: 06/21/17 13:13 Dose: Not Given Isosorbide Mononitrate (Imdur -) 30 mg PO DAILY COUNT INCLUDES THE [facility] Last Admin: 06/21/17 09:14 Dose: 30 mg Lidocaine HCl (Xylocaine 2% Viscous Oral -) 20 ml MM Q6HPO PRN PRN Reason: ORAL PAIN/MOUTH SORES Last Admin: 06/14/17 18:11 Dose: 20 ml Multi-Ingredient Ointment (Zinc Oxide) 1 applic TP BID COUNT INCLUDES THE [facility] Last Admin: 06/21/17 09:15 Dose: Not Given Polyethylene Glycol (Miralax (For Daily Use) -) 119 gm PO ONCE PRN PRN Reason: CONSTIPATION Last Admin: 06/19/17 09:17 Dose: 119 gm Rosuvastatin Calcium (Crestor -) 5 mg PO [facility] Last Admin: 06/20/17 21:13 Dose: 5 mg Spironolactone (Aldactone -) 25 mg PO DAILY COUNT INCLUDES THE [facility] Last Admin: 06/21/17 09:14 Dose: 25 mg Tamsulosin HCl (Flomax -) 0.4 mg PO DAILY@0830 COUNT INCLUDES THE [facility] Last Admin: 06/21/17 09:13 Dose: 0.4 mg Trazodone HCl (Desyrel -) 50 mg PO [facility] Last Admin: 06/20/17 22:26 Dose: 50 mg A/P 87 year old gentleman with PMhx of CAD s/p CABG, recent NSTEMI with Cardiac cath with PCI, CHF with AICD, Hypertension, COPD, CKD with baseline Cr of 1.6 to 2 presents with complaints of LE swelling and SOB and found to have CHF exacerbation with concurrent EDITA Cr 2.3-3.1. #Acute on Chronic Renal insufficiency in setting of CHF/Volume overload Cr now at baseline when ok with cardiology can transition to oral loop diuretic like Torsemide 40mg Daily will need close monitoring of weights and renal function continue low dose arb and aldactone Thank you Will follow Lobo Shrestha DO
--- NOTE | 2017-06-21 16:23 | DS ---
Physical Exam: SUBJECTIVE: Patient seen and examined. No acute events overnight. Patient offers no complaints. OBJECTIVE: Vital Signs Period Temp Pulse Resp BP Sys/العلي Pulse Ox Last 24 Hr 97.8 F-98.5 F 72-81 18-20 96-126/56-71 96-98 PHYSICAL EXAM GENERAL: The patient is awake, alert, and fully oriented, in no acute distress. HEAD: Normal with no signs of trauma. ENT: oral ulcer under tongue. Bleeding from right nostril. NECK: supple. LUNGS: B/L lower lung crackles HEART: Regular rate and rhythm, S1, S2 without murmur, rub or gallop. ABDOMEN: Soft, nontender, nondistended, normoactive bowel sounds, no guarding, no rebound, no hepatosplenomegaly, no masses. EXTREMITIES: 2+ pulses, B/L LE 2+ edema (improving) PSYCH: Normal mood, normal affect. SKIN: dry, 1cm left inner buttock tear improving LABS Laboratory Results - last 24 hr 06/21/17 05:35 Sodium 136 Potassium 3.2 L Chloride 90 L Carbon Dioxide 31 Anion Gap 15 BUN 39 H Creatinine 1.9 H Random Glucose 100 Calcium 8.3 L Phosphorus 3.0 Magnesium 2.5 H HOSPITAL COURSE: Date of Admission:06/10/17 87M PMH of HTN HLD CKD COPD BPH recent NSTEMI last month, PSVT, and CAD s/p CABG x 5 yrs ago at [facility] who presented to the ED complaining of shortness of breath and worsening orthopnea. Per the patient he has been having worsening shortness of breath since his cardiac cath last month. He stated his exercise tolerance has been slightly getting worse but most concerning for him is his inability to lay down. He also stated he has not taken his medications since last month. Patient was found to have elevation of troponins in the ED likely due to demand ischemia. Also echo revealed LVEF severely decreased hypokinesis of LV. left atrial enlargement Mild MR mild TR Pulm hypertension. And X ray revealed congestive changes. Patient was found to have and was treated for Acute on Chronic Renal insufficiency in setting of CHF/Volume overload likely due to his medication noncompliance. Nephro (Dr. Shrestha) and Cardio (Dr. Hernandez) were consulted to further evaluate the patient. He was being managed with IV lasix without significant improvement. Dobutamine was added to maintain systemic perfusion and preserve end organ performance. Renal function improved and volume status improved with Dobutamine and Lasix. Once renal functions achieved baseline, patient was started on PO lasix. Please review new medication list. Date of Discharge: 06/21/17 Minutes to complete discharge: 30 Discharge Summary Reason For Visit: ACUTE CHRONIC HEART FAILURE Current Active Problems CHF (congestive heart failure) (Acute) Chronic mastoiditis, bilateral (Acute) Orthopnea (Acute) SOB (shortness of breath) (Acute) CAD (coronary artery disease) (Chronic) Chronic kidney disease (CKD) stage G3a/A2, moderately decreased glomerular filtration rate (GFR) between 45-59 mL/min/1.73 square meter and albuminuria creatinine ratio between 30-299 mg/g (Chronic) Renal insufficiency (Chronic) Condition: Improved - Instructions Diet, Activity, Other Instructions: -You were treated at the hospital for your heart failure. -Please continue Ciprofloxacin drops in both your ears until you see your ENT doctor. -Please Follow up with your dentist to adjust your dentures. -Follow up with your ENT because of your history of Mastoid surgery. -Follow up with your home office claim specialist to adjust your hearing aid, as they are causing trauma to your ear. - We prescribed your potassium supplements because your potassium level is low. Please take the Potassium supplements. You will need to get your blood work done this week and you will need to make an appointment and give the results to your primary care physician (Dr. Casey). -Follow up with your primary care doctor (Dr. Casey), your metal and plastic heater (Dr. Shrestha), and your Public Policy Associate 1 week after discharge. -Please take all your medications as directed. Referrals: Anmol Casey MD [Primary Care Provider] - Lobo Shrestha MD [Staff Physician] - 1 Week Kelvin Campuzano MD [Staff Physician] - 1 Week Aleksandr May MD [Staff Physician] - 1 Week Disposition: VNS/HOME HEALTH CARE - Home Medications Comprehensive Discharge Medication List: Ambulatory Orders Aspirin [ASA -] 81 mg PO DAILY #30 tab.chew 05/08/17 Carvedilol 6.25 mg PO BID 05/24/17 Isosorbide Mononitrate [Imdur -] 30 mg PO DAILY 05/24/17 Tamsulosin HCl 0.4 mg PO DAILY 05/24/17 Simvastatin 20 mg PO HS 06/10/17 Trazodone HCl 50 mg PO HS 06/10/17 Bacitracin - [Bacitracin Topical Ointment -] 1 applic TP BID #1 tube 06/21/17 Ciprofloxacin 0.3% Eye Drops [Ciloxan 0.3% Eye Drops -] 4 drop NR BID #1 drop Clopidogrel Bisulfate [Plavix -] 75 mg PO AM #30 tab 06/21/17 Miscellaneous Drug Not In Syst [Outpatient Lab Test] 1 each ASDIR #1 misc 05/30 Potassium Chloride 20 meq PO DAILY #30 tablet.er 06/21/17 Spironolactone 25 mg PO DAILY #30 tab 06/21/17 Torsemide [Demadex -] 40 mg PO DAILY #30 tablet 06/21/17 This patient is new to me today: No Emergency Visit: Yes ED Registration Date: 06/10/17 Care time: The patient presented to the Emergency Department on the above date and was hospitalized for further evaluation of their emergent condition. Critical Care patient: No - Discharge Referral Referred to [facility] Med P.C.: No
--- NOTE | 2017-06-21 18:05 | PN ---
Teaching Attending Note Name of Resident: Kelsy Red ATTENDING PHYSICIAN STATEMENT I saw and evaluated the patient. I reviewed the resident's note and discussed the case with the resident. I agree with the resident's findings and plan as documented. SUBJECTIVE: no fever or chills. no SOB or CP OBJECTIVE: NAD , AAOX3 . HEENT: NC, AT . MMM CV: RRR, no MRG. Lungs: CTAB Ext: 2+ pitting edema on both legs from knee down. recent well healing scar on medial L calf. DP 2+ ASSESSMENT AND PLAN: 87 y/o man with h/ o CAD, S/p CCABG, recent stenting, AICD placement , HTN, HL, and other medical problems who presented with worsening SOB and was found to have acute CHF exacerbation 1- Acute on chronic Systolic and diastolic CHF: due to non compliance with meds. - start demadex [address]t po Kcl - cont aldactone - cont imdur and coreg - script for BMP in 1 week 2- EDITA on CKD: back to base line 3- Transaminitis likely due to liver congestion resolved 4- HTN: coreg. imdur 5-H/o CAD . cont ASA and plavix . cont BB and imdur DC home today
== END 2017-06-21 17:10 | disposition home health service (06) | DRG 291 ==
LOC: JER 03:56 → JERBED 08:03 → J4W 10:21
PROVIDERS: ADMIT Internal Medicine; ATTEND Internal Medicine
DX: I13.0 Hypertensive heart and chronic kidney disease with heart failure and stage 1 through stage 4 chronic kidney disease, or unspecified chronic kidney disease (principal); I50.43 Acute on chronic combined systolic (congestive) and diastolic (congestive) heart failure; N17.9 Acute kidney failure, unspecified; I24.8 Other forms of acute ischemic heart disease; N40.0 Benign prostatic hyperplasia without lower urinary tract symptoms; I25.2 Old myocardial infarction; I25.10 Atherosclerotic heart disease of native coronary artery without angina pectoris; Z95.1 Presence of aortocoronary bypass graft; Z87.891 Personal history of nicotine dependence; J44.9 Chronic obstructive pulmonary disease, unspecified; Z95.810 Presence of automatic (implantable) cardiac defibrillator; I44.7 Left bundle-branch block, unspecified; I27.2 Other secondary pulmonary hypertension; N18.3 Chronic kidney disease, stage 3 (moderate); F41.9 Anxiety disorder, unspecified; G47.00 Insomnia, unspecified; Z91.14 Patient's other noncompliance with medication regimen; R74.0 Nonspecific elevation of levels of transaminase and lactic acid dehydrogenase [LDH]; I34.0 Nonrheumatic mitral (valve) insufficiency; I36.1 Nonrheumatic tricuspid (valve) insufficiency; R73.9 Hyperglycemia, unspecified; K13.70 Unspecified lesions of oral mucosa; R09.02 Hypoxemia; R42 Dizziness and giddiness; R33.8 Other retention of urine; D63.8 Anemia in other chronic diseases classified elsewhere; H91.8X3 Other specified hearing loss, bilateral; R04.0 Epistaxis; E87.6 Hypokalemia; H70.13 Chronic mastoiditis, bilateral; K76.1 Chronic passive congestion of liver
CPT/HCPCS: 36415; 71010-TC; 80048; 80053; 80061; 82553; 82570; 83036; 83721; 83735; 83880; 84100; 84156; 84300; 84484; 84540; 85025; 85027; 85610; 85730; 93005; 93010; 93306-TC; 93971-TC; 99282-25; J1250; J1644

== ENCOUNTER 2017-06-27 12:09 | Observation (INO) | payer BC, OTHER ==
--- NOTE | 2017-06-27 12:42 | PDOC ---
Attending Attestation - Physicial Exam PE: 06/27/17 13:26 GENERAL: Awake, alert, and fully oriented, in no acute distress. HEAD: No signs of trauma EYES: PERRLA, EOMI, sclera anicteric, conjunctiva clear ENT: Poor dentition. Auricles normal inspection, hearing grossly normal, nares patent, oropharynx clear without exudates. Moist mucosa NECK: Normal ROM, supple, no lymphadenopathy, JVD, or masses LUNGS: Rales bilaterally. HEART: Regular rate and rhythm, normal S1 and S2, no murmurs, rubs or gallops ABDOMEN: Soft, nontender, normoactive bowel sounds. No guarding, no rebound. No masses EXTREMITIES: 3+ pitting edema. Normal range of motion. No calf tenderness. No clubbing or cyanosis. No cords, erythema. NEUROLOGICAL: Cranial nerves II through XII grossly intact. Normal speech, normal gait SKIN: Warm, Dry, normal turgor, no rashes or lesions noted. Documentation prepared by Joann Blake, acting as medical health researcher for Sofia Mckee DO. <Joann Blake - Last Filed: 06/27/17 13:26> - Resident Resident Name: Cade Juarez - ED Attending Attestation I have performed the following: I have examined & evaluated the patient, The case was reviewed & discussed with the resident, I agree w/resident's findings & plan, Exceptions are as noted - HPI HPI: 06/27/17 14:24 87yo male with cad, stents, chf with dizziness/decreased po intake secondary to change in taste, SOB, and LE edema -states seeing 2 cardiologists (johnna and Dr. Campuzano) -hasn't taking meds x 3 days -concern for CHF exacerbation and medication noncompliance. - Medical Decision Making 06/27/17 12:42 I, Dr. Sofia Mckee DO, attest that this document has been prepared under my direction and personally reviewed by me in its entirety. I further attest, that it accurately reflects all work, treatment, procedures and medical decision -making performed by me. 06/27/17 14:26 a/p: 87yo with dizziness, sob, chf, le edema and medication noncompliance. -labs -ekg -cxr -discuss with Dr. Campuzano -restart meds 06/27/17 14:46 [place] [id number], noncompliance and confusion with meds. Will need demedex in ED and admission for CHF/volume overload. Case discussed with cards who will see the patient in consult. Pt d/c from [facility] last week. Case discussed with resident who accepts pt to tele obs. <Sofia Mckee - Last Filed: 06/27/17 14:50> Discharge Disposition - Discharge Dispostion Last Admission D/C Date: 06/21/17 Admit: Yes <Sofia Mckee - Last Filed: 06/27/17 14:50> - Diagnosis Acute on chronic congestive heart failure - Discharge Dispostion Condition at time of disposition: Fair
--- NOTE | 2017-06-27 13:04 | PDOC ---
History of Present Illness - General Chief Complaint: Shortness of Breath Stated Complaint: SOB Time Seen by Provider: 06/27/17 12:32 History Source: Patient Exam Limitations: No Limitations - History of Present Illness Initial Comments: 06/27/17 12:55 Patient is a HTN, HLD, CKD, COPD, BPH, NSTEMI s/p stenting (05/30) and AICD, previously admitted 06/10-06/21 for heart failure (put on dobutamine for a period to improve function) here today complaining of shortness of breath and generalized weakness. He states that he went to a new masonry installer at [facility] , did not like the care he received, and stopped taking the medicines that were prescribed by him because he thought they were different medicine. On review of medications, the list is unchanged from his discharge. He last took his medications three days ago. He denies chest pain, abdominal pain, cough, nausea , vomiting, fevers, and chills. Patient is not taking daily weights because he doesn't have a scale. Past History - Past Medical History Allergies/Adverse Reactions: Allergies Allergy/AdvReac Type Severity Reaction Status Date / Time amoxicillin trihydrate AdvReac Mild gi upset Verified 06/27/17 12:14 [From Augmentin] atorvastatin calcium AdvReac Mild gi upset Verified 06/27/17 12:14 [From Lipitor] potassium clavulanate AdvReac Mild gi upset Verified 06/27/17 12:14 [From Augmentin] Home Medications: Ambulatory Orders Aspirin [ASA -] 81 mg PO DAILY #30 tab.chew 05/08/17 Carvedilol 6.25 mg PO BID 05/24/17 Tamsulosin HCl 0.4 mg PO DAILY 05/24/17 Simvastatin 20 mg PO HS 06/10/17 Trazodone HCl 50 mg PO HS 06/10/17 Bacitracin - [Bacitracin Topical Ointment -] 1 applic TP BID #1 tube 06/21/17 Clopidogrel Bisulfate [Plavix -] 75 mg PO AM #30 tab 06/21/17 Spironolactone 25 mg PO DAILY #30 tab 06/21/17 Ciprofloxacin 0.3% Eye Drops [Ciloxan 0.3% Eye Drops -] 4 drop NR BID 06/27/17 Isosorbide Mononitrate [Imdur -] 30 mg PO DAILY 06/27/17 Potassium Chloride 20 meq PO DAILY 06/27/17 Torsemide [Demadex] 40 mg PO DAILY 06/27/17 Cardiac Disorders: Yes (CABG (5 years ago), CAD) CHF: Yes HTN: Yes Hypercholesterolemia: Yes Psychiatric Problems: Yes (anxiety, insomnia) - Surgical History Cardiac Surgery: Yes (OPEN HEART SX, cardiac stent 05/30, AICD 05/30) - Immunization History Immunization Up to Date: Yes - Psycho/Social/Smoking Cessation Hx Anxiety: Yes Suicidal Ideation: No Smoking Status: No Smoking History: Former smoker Have you smoked in the past 12 months: No Number of Cigarettes Smoked Daily: 0 If you are a former smoker, when did you quit?: 1960 Information on smoking cessation initiated: No Hx Alcohol Use: No Drug/Substance Use Hx: No Substance Use Type: Alcohol Hx Substance Use Treatment: No Review of Systems - Review of Systems Comments:: 06/27/17 13:04 GENERAL/CONSTITUTIONAL: No fever or chills. Positive for weakness. HEAD, EYES, EARS, NOSE AND THROAT: No change in vision. No sore throat. CARDIOVASCULAR: No chest pain. Positive for shortness of breath. RESPIRATORY: No cough, wheezing, or hemoptysis. GASTROINTESTINAL: No nausea, vomiting, diarrhea or constipation. GENITOURINARY: No dysuria, frequency, or change in urination. SKIN: No rash NEUROLOGIC: Positive for headache 3 days ago. Negative for vertigo, loss of consciousness, or change in strength/sensation. ENDOCRINE: No increased thirst. No abnormal weight change HEMATOLOGIC/LYMPHATIC: No anemia, easy bleeding, or history of blood clots. ALLERGIC/IMMUNOLOGIC: No hives or skin allergy. *Physical Exam - Vital Signs Last Vital Signs Temp Pulse Resp BP Pulse Ox 98.2 F 82 20 121/66 99 06/27/17 12:14 06/27/17 12:14 06/27/17 12:14 06/27/17 12:14 06/27/17 12:14 - Physical Exam Comments: 06/27/17 13:06 GENERAL: Awake, alert, and fully oriented, in no acute distress HEAD: No signs of trauma, normocephalic, atraumatic EYES: PERRLA, EOMI, sclera anicteric, conjunctiva clear ENT: Auricles normal inspection, hearing grossly normal, nares patent, oropharynx clear without exudates. Moist mucosa NECK: Normal ROM, supple. Positive for JVD. LUNGS: No distress, speaks full sentences, bilateral crackles at lung bases HEART: Regular rate and rhythm, normal S1 and S2, late systolic 2/6 murmur ABDOMEN: Soft, nontender, normoactive bowel sounds. No guarding, no rebound. No masses EXTREMITIES: Normal inspection, Normal range of motion. 1+ pitting edema to knee. No clubbing or cyanosis. NEUROLOGICAL: Cranial nerves II through XII grossly intact. Normal speech, no focal sensorimotor deficits SKIN: Warm, Dry, normal turgor, no rashes or lesions noted. ED Treatment Course - LABORATORY CBC & Chemistry Diagram: 06/27/17 13:31 06/27/17 13:31 - RADIOLOGY Radiology Studies Ordered: Category Date Time Status CHEST X-RAY PORTABLE* [RAD] Stat Radiology 06/27/17 12:48 Ordered Medical Decision Making - Medical Decision Making 06/27/17 13:07 Patient is a 87M with multiple heart issues, CHF and poorly compliant with medications here today with shortness of breath and weakness. Vital signs stable and normal. Physical exam consistent with heart failure. Will evaluate with labs, cxr, and ecg. Will consult masonry installer who saw him at [facility]. Will treat with home medication dose of diuretics. ECG shows normal sinus rhythm and normal rate, LBBB (old compared to prior ecg) , left axis deviation. Sgarbossa criteria not met. 06/27/17 14:17 Laboratory Tests 06/27/17 06/27/17 13:31 13:31 WBC 5.7 Hgb 11.3 L Hct 34.6 L Plt Count 130 L D BUN 52 H D Creatinine 2.2 H Magnesium 2.7 H Troponin I 0.03 D B-Natriuretic Peptide 85086.88 H CBC normal. BUN 52, Cr 2.2, baseline is around 2, last one done before d/c was 1.9. BNP 26k, last BNP 3k. Trop neg. 06/27/17 16:22 Admitted to tele obs *DC/Admit/Observation/Transfer Diagnosis at time of Disposition: Acute exacerbation of CHF (congestive heart failure) - Discharge Dispostion Condition at time of disposition: Fair
[2017-06-27 13:41] LABS: BASOPHIL 1.2 % (0-2.0); EOSINOPHIL 1.9 % (0-4.5); MCH 28.7 pg (25.7-33.7); MCHC 32.5 g/dl (32.0-35.9); MEAN CELL VOLUME 88.3 fl (80-96); MEAN PLT VOLUME 9.5 fl (7.5-11.1); NEUTROPHILS 66.2 % (42.8-82.8); PLATELET COUNT 130 K/MM3 (134-434); RDW 15.6 % (11.9-15.9); WHITE BLOOD COUNT 5.7 K/mm3 (4.0-10.0)
[2017-06-27 14:06] LABS: ALBUMIN 3.5 g/dl (3.4-5.0); ANION GAP 12 (8-16); BILIRUBIN,TOTAL 0.9 mg/dL (0.2-1.0); CALCIUM 8.8 mg/dL (8.5-10.1); CO2 32 mmol/L (21-32); CREATININE 2.2 mg/dL (0.7-1.3); GLUCOSE,RANDOM 118 mg/dL (74-106); INR 1.34 (0.82-1.09); MAGNESIUM 2.7 mg/dL (1.8-2.4); PROTHROMBIN TIME (PATIENT) 14.8 SEC (9.98-11.88); SGOT/AST 19 U/L (15-37); SGPT/ALT 21 U/L (12-78); TOT PROT 6.9 g/dl (6.4-8.2)
[2017-06-27 14:08] LABS: ALK PHOS 81 U/L (45-117); CPK 86 IU/L (39-308); TROPONIN I 0.03 ng/ml (0.00-0.05)
--- NOTE | 2017-06-27 15:20 | EKG ---
Test Reason : Blood Pressure : / mmHG Vent. Rate : 082 BPM Atrial Rate : 082 BPM P-R Int : 174 ms QRS Dur : 138 ms QT Int : 418 ms P-R-T Axes : 042 -57 148 degrees QTc Int : 488 ms SINUS RHYTHM WITH PREMATURE SUPRAVENTRICULAR COMPLEXES AND WITH OCCASIONAL PREMATURE VENTRICULAR COMPLEXES POSSIBLE LEFT ATRIAL ENLARGEMENT LEFT AXIS DEVIATION LEFT BUNDLE BRANCH BLOCK ABNORMAL ECG WHEN COMPARED WITH ECG OF 11-JUN-2017 00:17, PREMATURE VENTRICULAR COMPLEXES ARE NOW PRESENT PREMATURE SUPRAVENTRICULAR COMPLEXES ARE NOW PRESENT T WAVE INVERSION NO LONGER EVIDENT IN ANTERIOR LEADS QT HAS SHORTENED Confirmed by CHARLEE QUIROZ MD ([id number]) on 06/27/2017 3:19:30 PM Referred By: Confirmed By:CHARLEE QUIROZ MD
[2017-06-27] MEDS: TORSEMIDE 20 MG TABLET (FP) PO ONE (15:41)
--- NOTE | 2017-06-27 15:52 | HP ---
CHIEF COMPLAINT:Metallic taste in mouth shortness of breath PCP:Eleni HISTORY OF PRESENT ILLNESS: 87M PMH of HTN HLD CKD COPD BPH recent NSTEMI last month, PSVT, and CAD s/p CABG x 5 yrs ago at [facility] who presents to the ED complaining of shortness of breath and worsening orthopnea. Per the patient he has been having shortness of breath which comes and goes. he also has had orthopnea that is chronic. He also complains of a metallic taste in his mouth which he states is due to medications. This is also intermittent. previously admitted for CHF exacerbation due to medication non complicance and was on dobutamine gtt for inotropic support. He denies nausea vomiting fevers chills chest pain cough diarrhea or constipation. Denies any urinary symptoms. Patient sees [address] Andres here and also sees another boilermaker's assistant at [facility] where he had his cardiac cath done and patient states he is confised as to which meds he should be taking. ER course was notable for: CXR Labs EKG torsemide Recent Travel: Non PAST MEDICAL HISTORY: As above Anxiety insomnia PAST SURGICAL HISTORY: CABG about 5 years ago , possible ear surgery Social History: Smokin pack-year history, quit age 30 after an episode of hemoptysis Alcohol: None Family History: Allergies amoxicillin trihydrate [From Augmentin] Adverse Reaction (Mild, Verified 12:14) gi upset atorvastatin calcium [From Lipitor] Adverse Reaction (Mild, Verified 06/27/17 12 :14) gi upset potassium clavulanate [From Augmentin] Adverse Reaction (Mild, Verified 12:14) gi upset HOME MEDICATIONS: Home Medications Medication Instructions Recorded Aspirin [ASA -] 81 mg PO DAILY #30 tab.chew 05/08/17 Carvedilol 6.25 mg PO BID 05/24/17 Tamsulosin HCl 0.4 mg PO DAILY 05/24/17 Simvastatin 20 mg PO HS 06/10/17 Trazodone HCl 50 mg PO HS 06/10/17 Bacitracin - [Bacitracin Topical 1 applic TP BID #1 tube 06/21/17 Ointment -] Clopidogrel Bisulfate [Plavix -] 75 mg PO AM #30 tab 06/21/17 Spironolactone 25 mg PO DAILY #30 tab 06/21/17 Ciprofloxacin 0.3% Eye Drops 4 drop NR BID 06/27/17 [Ciloxan 0.3% Eye Drops -] Isosorbide Mononitrate [Imdur -] 30 mg PO DAILY 06/27/17 Potassium Chloride 20 meq PO DAILY 06/27/17 Torsemide [Demadex] 40 mg PO DAILY 06/27/17 REVIEW OF SYSTEMS CONSTITUTIONAL: Absent: fever, chills, diaphoresis, generalized weakness, malaise, loss of appetite, weight change Present: Metallic taste in mouth HEENT: Absent: rhinorrhea, nasal congestion, throat pain, throat swelling, difficulty swallowing, mouth swelling, ear pain, eye pain, visual changes CARDIOVASCULAR: Absent: chest pain, syncope, palpitations, irregular heart rate, lightheadedness , Present: peripheral edema but significantly improved RESPIRATORY: Absent: cough, shortness of breath, dyspnea with exertion,, wheezing, stridor, hemoptysis Present: orthopnea, GASTROINTESTINAL: Absent: abdominal pain, abdominal distension, nausea, vomiting, diarrhea, constipation, melena, hematochezia GENITOURINARY: Absent: dysuria, frequency, urgency, hesitancy, hematuria, flank pain, genital pain MUSCULOSKELETAL: Absent: myalgia, arthralgia, joint swelling, back pain, neck pain SKIN: Absent: rash, itching, pallor HEMATOLOGIC/IMMUNOLOGIC: Absent: easy bleeding, easy bruising, lymphadenopathy, frequent infections ENDOCRINE: Absent: unexplained weight gain, unexplained weight loss, heat intolerance, cold intolerance NEUROLOGIC: Absent: headache, focal weakness or paresthesias, dizziness, unsteady gait, seizure, mental status changes, bladder or bowel incontinence PSYCHIATRIC: Absent: anxiety, depression, suicidal or homicidal ideation, hallucinations. PHYSICAL EXAMINATION GENERAL: Awake, alert, in no acute distress. HEAD: Normal with no signs of trauma. NECK: supple LUNGS: fine bibasilar crackles improved from discharge HEART: Regular rate and rhythm, normal S1 and S2 without murmur, rub or gallop. no JVD ABDOMEN: Soft, nontender, not distended, normoactive bowel sounds, no guarding, no rebound LOWER EXTREMITIES: warm, No calf tenderness. 2+ pitting edema bilaterally up to knee. both legs are significantly decreased in size when compared to exam on discharge NEUROLOGICAL: Cranial nerves II-XII grossly intact. Normal speech. gait unchanged ECHO from : LVEF severely decreased hypokinesis of LV. left atrial enlargement Mild MR mild TR Pulm hypertension. Mild aortic stenosis ASSESSMENT/PLAN: 87M with multiple medical problems presents to the hospital with acute on chronic left sided systolic heart failure presents with intermittent shortness of breath. acute on chronic CHF left sided systolic exacerbation: unlikely to be in exacerbation at this time patient's lower extremities are much improved from time of discharge. possible patient is non compliant with medications patient recently has an NSTEMI where he had a left heart cath angiogram PCI with stent and ICD placement. patient confused about taking medications as he sees 2 cardiologists. patients weight is also less than previous admission on the day of discharge given torsemide in ED cardiology consult Observation telemetry strict I/O daily weights spironolactone coreg 6.25 mg po BID Imdur home dose of torsemide counselled patient on medication compliance primary team and boilermaker's assistant to speak to patient and explain which meds he needs to take in detail CAD: see above restart statin restart Plavix restart aspirin HTN: continue coreg 6.25mg po BID IMDUR 30mg po daily HLD: restart statin hyperglycemia: fingersticks ACHS to monitor glucose values. COPD: not in acute exacerbation at this time bronchodialtors PRN O2 PRN CKD: Creatinine at baseline will continue to trend and monitor BPH: restart home dose of flomax anxiety/insomnia: restart trazadone Pulm HTN: FEN: no IVF no electrolyte issues diabetic/sodium controlled diet PPx: HSQ no GI PPx indicated no PT consult needed patient is ambulating with a cane case discussed with Dr. Schumacher Visit type - Emergency Visit Emergency Visit: Yes ED Registration Date: 06/27/17 Care time: The patient presented to the Emergency Department on the above date and was hospitalized for further evaluation of their emergent condition. - New Patient This patient is new to me today: Yes Date on this admission: 06/27/17 - Critical Care Critical Care patient: No
--- NOTE | 2017-06-27 16:43 | PN ---
Teaching Attending Note Name of Resident: Juan Gonzalez ATTENDING PHYSICIAN STATEMENT I saw and evaluated the patient. I reviewed the resident's note and discussed the case with the resident. I agree with the resident's findings and plan as documented. SUBJECTIVE: Patient is c/o having dizziness, light headedness. Also c/o having headache. OBJECTIVE: Vital Signs Temperature 98.2 F 06/27/17 12:14 Pulse Rate 82 06/27/17 12:14 Respiratory Rate 20 06/27/17 12:14 Blood Pressure 121/66 06/27/17 12:14 O2 Sat by Pulse Oximetry (%) 99 06/27/17 12:14 CBCD WBC 5.7 K/mm3 (4.0-10.0) 06/27/17 13:31 RBC 3.92 M/mm3 (4.00-5.60) L 06/27/17 13:31 Hgb 11.3 GM/dL (11.7-16.9) L 06/27/17 13:31 Hct 34.6 % (35.4-49) L 06/27/17 13:31 MCV 88.3 fl (80-96) 06/27/17 13:31 MCHC 32.5 g/dl (32.0-35.9) 06/27/17 13:31 RDW 15.6 % (11.9-15.9) 06/27/17 13:31 Plt Count 130 K/MM3 (134-434) L D 06/27/17 13:31 MPV 9.5 fl (7.5-11.1) 06/27/17 13:31 CMP Sodium 135 mmol/L (136-145) L 06/27/17 13:31 Potassium 3.7 mmol/L (3.5-5.1) 06/27/17 13:31 Chloride 91 mmol/L (98-107) L 06/27/17 13:31 Carbon Dioxide 32 mmol/L (21-32) 06/27/17 13:31 Anion Gap 12 (8-16) 06/27/17 13:31 BUN 52 mg/dL (7-18) H D 06/27/17 13:31 Creatinine 2.2 mg/dL (0.7-1.3) H 06/27/17 13:31 Creat Clearance w eGFR 28.45 (>60) 06/27/17 13:31 Random Glucose 118 mg/dL (74-106) H 06/27/17 13:31 Calcium 8.8 mg/dL (8.5-10.1) 06/27/17 13:31 Total Bilirubin 0.9 mg/dL (0.2-1.0) 06/27/17 13:31 AST 19 U/L (15-37) 06/27/17 13:31 ALT 21 U/L (12-78) D 06/27/17 13:31 Alkaline Phosphatase 81 U/L (45-117) 06/27/17 13:31 Total Protein 6.9 g/dl (6.4-8.2) 06/27/17 13:31 Albumin 3.5 g/dl (3.4-5.0) 06/27/17 13:31 CARDIAC ENZYMES Creatine Kinase 86 IU/L (39-308) 06/27/17 13:31 Troponin I 0.03 ng/ml (0.00-0.05) D 06/27/17 13:31 Current Medications Generic Name Dose Route Start Last Admin Trade Name Yovaniq PRN Reason Stop Dose Admin Aspirin 81 mg 06/28/17 10:00 Asa - PO DAILY [facility] Atorvastatin Calcium 40 mg 06/27/17 22:00 Lipitor - PO HS [facility] Bacitracin 1 applic 06/27/17 22:00 Bacitracin - TP BID [facility] Carvedilol 6.25 mg 06/27/17 22:00 Coreg - PO BID [facility] Ciprofloxacin 4 drop 06/27/17 22:00 Ciloxan 0.3% Eye Drops - NR BID [facility] Clopidogrel Bisulfate 75 mg 06/28/17 10:00 Plavix - PO DAILY [facility] Heparin Sodium (Porcine) 5,000 unit 06/27/17 22:00 Heparin - SQ TID [facility] Insulin Aspart 1 vial 06/27/17 16:30 Novolog Vial Sliding Scale - SQ ACHS [facility] Protocol Isosorbide Mononitrate 30 mg 06/28/17 10:00 Imdur - PO DAILY [facility] Potassium Chloride 20 meq 06/28/17 10:00 K-Dur - PO DAILY [facility] Spironolactone 25 mg 06/28/17 10:00 Aldactone - PO DAILY [facility] Tamsulosin HCl 0.4 mg 06/28/17 08:30 Flomax - PO DAILY@0830 [facility] Torsemide 40 mg 06/28/17 15:13 06/27/17 15:41 Demadex - PO 06/28/17 15:14 40 mg ONCE ONE Administration Torsemide 40 mg 06/28/17 10:00 Demadex - PO DAILY [facility] Trazodone HCl 50 mg 06/27/17 22:00 Desyrel - PO HS [facility] Home Medications Medication Instructions Recorded Aspirin [ASA -] 81 mg PO DAILY #30 tab.chew 05/08/17 Carvedilol 6.25 mg PO BID 05/24/17 Tamsulosin HCl 0.4 mg PO DAILY 05/24/17 Simvastatin 20 mg PO HS 06/10/17 Trazodone HCl 50 mg PO HS 06/10/17 Bacitracin - [Bacitracin Topical 1 applic TP BID #1 tube 06/21/17 Ointment -] Clopidogrel Bisulfate [Plavix -] 75 mg PO AM #30 tab 06/21/17 Spironolactone 25 mg PO DAILY #30 tab 06/21/17 Ciprofloxacin 0.3% Eye Drops 4 drop NR BID 06/27/17 [Ciloxan 0.3% Eye Drops -] Isosorbide Mononitrate [Imdur -] 30 mg PO DAILY 06/27/17 Potassium Chloride 20 meq PO DAILY 06/27/17 Torsemide [Demadex] 40 mg PO DAILY 06/27/17 PE: as per resident's note ASSESSMENT AND PLAN: 87M with multiple medical problems presents to the hospital with acute on chronic left sided systolic heart failure presents with intermittent shortness of breath. # acute on chronic CHF left sided systolic exacerbation: cardiology consult , Observation telemetry, strict I/O, daily weights, continue spironolactone, coreg 6.25 mg po BID ,Imdur # Hc of CAD/HLD: continue statin/plavix/aspirin # HTN: continue coreg 6.25mg po BID , IMDUR 30mg po daily # hyperglycemia: fingersticks ACHS to monitor glucose values. # COPD: stable , bronchodialtors PRN continue, O2 PRN # CKD: Creatinine at baseline # BPH: restart home dose of flomax # anxiety/insomnia: Continue trazadone # Pulm HTN: DVT Px: No heparin since patient has hx of bleeding on Heparin, is on Plavix/asa , and has swollen LE can't use SCDs since swelling of LEs.
[2017-06-27] MEDS: INSULIN SLIDING SCALE (NOVOLOG) 1 VIAL SQ SCH ×2 (20:16→22:14)
[2017-06-27 20:17] LABS: TROPONIN I 0.04 ng/ml (0.00-0.05)
[2017-06-27] MEDS ORDERED: HEPARIN NA (PORCINE) 5,000 UNITS/ML 1ML VIAL SQ SCH (22:00)
[2017-06-27] MEDS ORDERED: traZODone HCL 50 MG TABLET (FP) PO SCH (22:00)
[2017-06-27] MEDS: BACITRACIN 15 GM TUBE TOPICAL OINTMENT TP SCH (22:11)
[2017-06-27] MEDS: CARVEDILOL 6.25 MG TABLET (FP) PO SCH (22:11)
[2017-06-27] MEDS: ATORVASTATIN CA 20 MG TABLET (FP) PO SCH (22:14)
[2017-06-27] MEDS: CIPROFLOXACIN HCL 0.3% OPHTH 2.5ML BOTTLE NR SCH (22:18)
[2017-06-28 00:21] VITALS: BMI 27.9
[2017-06-28] MEDS: INSULIN SLIDING SCALE (NOVOLOG) 1 VIAL SQ SCH ×4 (06:50→21:57)
[2017-06-28 08:12] LABS: MCH 28.7 pg (25.7-33.7); MCHC 32.7 g/dl (32.0-35.9); MEAN CELL VOLUME 87.5 fl (80-96); MEAN PLT VOLUME 9.7 fl (7.5-11.1); PLATELET COUNT 117 K/MM3 (134-434); RDW 15.4 % (11.9-15.9); WHITE BLOOD COUNT 4.5 K/mm3 (4.0-10.0)
[2017-06-28] MEDS ORDERED: TAMSULOSIN HCL 0.4 MG CAP.ER.24H (FP) PO SCH (08:30)
[2017-06-28 09:03] LABS: ALBUMIN 3.2 g/dl (3.4-5.0); ALK PHOS 72 U/L (45-117); ANION GAP 9 (8-16); CALCIUM 8.6 mg/dL (8.5-10.1); CO2 34 mmol/L (21-32); CREATININE 2.1 mg/dL (0.7-1.3); GLUCOSE,RANDOM 92 mg/dL (74-106); MAGNESIUM 2.5 mg/dL (1.8-2.4); PHOSPHOROUS 3.4 mg/dL (2.5-4.9); SGOT/AST 16 U/L (15-37); SGPT/ALT 20 U/L (12-78); TOT PROT 6.5 g/dl (6.4-8.2)
[2017-06-28] MEDS: CIPROFLOXACIN HCL 0.3% OPHTH 2.5ML BOTTLE NR SCH ×2 (09:35→21:46)
[2017-06-28] MEDS: BACITRACIN 15 GM TUBE TOPICAL OINTMENT TP SCH ×2 (09:35→21:46)
[2017-06-28] MEDS: ASPIRIN 81 MG CHEWABLE TABLETS PO SCH (09:35)
[2017-06-28] MEDS: CLOPIDOGREL BISULFATE 75 MG TABLET (FP) PO SCH (09:38)
[2017-06-28] MEDS ORDERED: POTASSIUM CHLORIDE TABS 20 MEQ TABLET.ER (FP) PO SCH (10:00)
[2017-06-28] MEDS ORDERED: ISOSORBIDE MONONITRATE 30 MG TAB.SR.24H (FP) PO SCH (10:00)
[2017-06-28] MEDS ORDERED: TORSEMIDE 20 MG TABLET (FP) PO SCH (10:00)
[2017-06-28] MEDS ORDERED: POTASSIUM CHLORIDE TABS 20 MEQ TABLET.ER (FP) PO ONE (10:30)
[2017-06-28] MEDS: CARVEDILOL 6.25 MG TABLET (FP) PO SCH ×2 (10:34→21:46)
[2017-06-28] MEDS: SPIRONOLACTONE 25 MG TABLET (FP) PO SCH (10:34)
--- NOTE | 2017-06-28 11:44 | CON.CARD ---
Consult - Past Medical History [employer]: Yes: Vertigo Cardio/Vascular: Yes: CAD, CHF, HTN, Hyperlipdemia Pulmonary: Yes: COPD Renal/: Yes: Renal Inusuff - Past Surgical History Past Surgical History: Yes: CABG - Alcohol/Substance Use Hx Alcohol Use: No - Smoking History Smoking history: Former smoker Have you smoked in the past 12 months: No Aproximately how many cigarettes per day: 0 If you are a former smoker, when did you quit?: 1959 <Kelvin Campuzano H - Last Filed: 06/28/17 11:44> - History of Present Illness History of Present Illness: Extended visit Requested by Dr. Diaz Chief Complaint: 87 year old male with history of CAD, s/p NSTEMI, s/p PCI/stenting (SHENG), severe left ventricular systolic dysfunction, s/p ICD for primary prophylaxis, has had multiple readmissions related to discontinuation of medications AMA. Denies having chest pain or discomfort, history of progressive dyspnea on exertion. No history of palpitations, lightheadedness, dizziness or syncope. Complaining of lightheadedness and metallic taste. Allergies: Amoxicillin trihydrate, atorvastatin calcium, potassium clavulanate Active Medications Generic Name Dose Route Start Last Admin Trade Name Freq PRN Reason Stop Dose Admin Aspirin 81 mg 06/28/17 10:00 06/28/17 09:35 Asa - PO 81 mg DAILY JEREMÍAS Administration Atorvastatin Calcium 40 mg 06/27/17 22:00 06/27/17 22:14 Lipitor - PO Not Given HS [facility]ER[facility]AS Bacitracin 1 applic 06/27/17 22:00 06/28/17 09:35 Bacitracin - TP 1 applic BID JEREMÍAS Administration Carvedilol 6.25 mg 06/27/17 22:00 06/28/17 10:34 Coreg - PO Not Given BID [facility]EREMÍAS Ciprofloxacin 4 drop 06/27/17 22:00 06/28/17 09:35 Ciloxan 0.3% Eye Drops - NR Not Given BID [facility]ER[facility]AS Clopidogrel Bisulfate 75 mg 06/28/17 10:00 06/28/17 09:38 Plavix - PO 75 mg DAILY JEREMÍAS Administration Insulin Aspart 1 vial 06/27/17 16:30 06/28/17 11:23 Novolog Vial Sliding Scale - SQ Not Given ACHS [facility] Protocol Isosorbide Mononitrate 30 mg 06/28/17 10:00 06/28/17 10:34 Imdur - PO Not Given DAILY [facility]EREMÍAS Potassium Chloride 20 meq 06/28/17 22:00 K-Dur - PO BID [facility]ER[facility]AS Spironolactone 25 mg 06/28/17 10:00 06/28/17 10:34 Aldactone - PO Not Given DAILY [facility]ER[facility] Tamsulosin HCl 0.4 mg 06/28/17 08:30 06/28/17 09:32 Flomax - PO 0.4 mg DAILY@0830 [facility]ER[facility]ÍAS Administration Torsemide 40 mg 06/28/17 15:13 06/27/17 15:41 Demadex - PO 06/28/17 15:14 40 mg ONCE ONE Administration Torsemide 40 mg 06/28/17 10:00 06/28/17 09:32 Demadex - PO 40 mg DAILY [facility]EREMÍAS Administration Trazodone HCl 50 mg 06/27/17 22:00 06/27/17 22:11 Desyrel - PO 50 mg HS JEREMÍAS Administration Review of Systems: Constitutional: No history of chills, fever or night sweats. No history of unintentional weight loss. HEENT: Complaining of metallic taste. No history of headaches, diplopia, blurred vision. History of epistaxis. No history of hoarseness. No tinnitus. History of deafness. Cardiovascular: See history of present illness. Respiratory: See history of present illness. No history of cough, expectoration or hemoptysis. No history of tuberculosis. GI: No history of nausea, vomiting, melena, or hematemesis. No history of abdominal pain or discomfort, no change in bowel habits reported. See history of present illness. [employer]: No history of seizures, or syncope. No history of focal weakness. History of lightheadedness. Endocrine: No history of polyuria or polydipsia. No history of intolerance to cold or warm weather. Musculoskeletal: No arthralgias or history of myalgia. : No history of frequency or hematuria. O: 87 year old male was in no acute distress, no pallor, cyanosis, clubbing, or jaundice. Last Vital Signs Temp Pulse Resp BP Pulse Ox 98.8 F 73 20 110/60 supine and standing 97 06/28/17 10:00 06/28/17 10:00 06/28/17 10:00 06/28/17 10:00 06/27/17 22:00 Intake & Output 06/25/17 06/26/17 06/27/17 06/28/17 23:59 23:59 23:59 23:59 Output Total 350 Balance -350 Weight 80.881 kg 78.245 kg Neck: Supple, no JVD, negative HJR, carotids were equal and upstrokes were normal, no thyromegaly appreciated. Heart: PMI was in the 5th intercostal space, no heaves or thrills, S1 and S2 were normal. Ejection systolic murmur grade I/ at the second right intercostal space. No gallops were appreciated. Lungs: Clear on auscultation bilaterally. Abdomen: Soft, nontender, no hepatosplenomegaly appreciated, and no palpable masses were felt. Extremities: No calf tenderness or dependent edema. Pulses are normal. EC06/27/17 Sinus rhythm with intraatrial conduction abnormality, rare super ventricular premature beats. Left axis deviation. Intraventricular conduction delay of the left bundle branch block type. Nonspecific ST and T abnormalities. Lab Data: Laboratory Results - last 24 hr 06/27/17 06/27/17 06/27/17 13:31 13:31 13:31 WBC 5.7 RBC 3.92 L Hgb 11.3 L Hct 34.6 L MCV 88.3 MCH 28.7 MCHC 32.5 RDW 15.6 Plt Count 130 L D MPV 9.5 Neutrophils % 66.2 Lymphocytes % 19.5 Monocytes % 11.2 H Eosinophils % 1.9 Basophils % 1.2 PT with INR 14.80 H INR 1.34 H Sodium 135 L Potassium 3.7 Chloride 91 L Carbon Dioxide 32 Anion Gap 12 BUN 52 H D Creatinine 2.2 H Creat Clearance w eGFR 28.45 POC Glucometer Random Glucose 118 H Calcium 8.8 Phosphorus Magnesium 2.7 H Total Bilirubin 0.9 AST 19 ALT 21 D Alkaline Phosphatase 81 Creatine Kinase 86 Troponin I 0.03 D B-Natriuretic Peptide 43190.88 H Total Protein 6.9 Albumin 3.5 06/27/17 06/27/17 06/28/17 19:28 21:45 06:00 WBC 4.5 RBC 3.72 L Hgb 10.7 L Hct 32.6 L MCV 87.5 MCH 28.7 MCHC 32.7 RDW 15.4 Plt Count 117 L MPV 9.7 Neutrophils % Lymphocytes % Monocytes % Eosinophils % Basophils % PT with INR INR Sodium Potassium Chloride Carbon Dioxide Anion Gap BUN Creatinine Creat Clearance w eGFR POC Glucometer 121 Random Glucose Calcium Phosphorus Magnesium Total Bilirubin AST ALT Alkaline Phosphatase Creatine Kinase 75 Troponin I 0.04 D B-Natriuretic Peptide Total Protein Albumin 06/28/17 06/28/17 06/28/17 06:00 06:49 11:22 WBC RBC Hgb Hct MCV MCH MCHC RDW Plt Count MPV Neutrophils % Lymphocytes % Monocytes % Eosinophils % Basophils % PT with INR INR Sodium 135 L Potassium 3.2 L Chloride 92 L Carbon Dioxide 34 H Anion Gap 9 BUN 48 H Creatinine 2.1 H Creat Clearance w eGFR 30.02 POC Glucometer 105 122 Random Glucose 92 D Calcium 8.6 Phosphorus 3.4 Magnesium 2.5 H Total Bilirubin 1.0 AST 16 ALT 20 Alkaline Phosphatase 72 Creatine Kinase Troponin I B-Natriuretic Peptide Total Protein 6.5 Albumin 3.2 L A: 1. Dizziness most likely related to medication. 2. Congestive heart failure ppt by poor compliance and discontinuation of medication. 3. Coronary artery disease s/p CABG, s/p NSTEMI, s/p PCI/stenting. 4. S/p ICD for primary prophylaxis. 5. Severe left ventricular systolic dysfunction. 6. Chronic kidney disease. 7. COPD/interstitial lung disease. 8. Poor compliance. 9. Intermittent epistaxis. 10. Hypokalemia. Recommendation: 1. Concur with discontinuing heparin. 2. Switch Flomax to the evening. 3. Reduce the dose of Demadex. 4. Switch Imdur to the evening. 5. Correction of serum potassium in progress. 6. If epistaxis continues may require ENT evaluation and intervention. 7. Follow up BMP. Prognosis: Guarded. Attestation: Documentation prepared by Joann Blake, acting as medical planner for Kelvin Campuzano MD. <Joann Blake - Last Filed: 06/28/17 12:40> Home Medications <Kelvin Campuzano H - Last Filed: 06/28/17 11:44> <Joann Blake - Last Filed: 06/28/17 12:40> - Allergies Allergies/Adverse Reactions: Allergies Allergy/AdvReac Type Severity Reaction Status Date / Time amoxicillin trihydrate AdvReac Mild gi upset Verified 06/27/17 12:14 [From Augmentin] atorvastatin calcium AdvReac Mild gi upset Verified 06/27/17 12:14 [From Lipitor] potassium clavulanate AdvReac Mild gi upset Verified 06/27/17 12:14 [From Augmentin] - Home Medications Home Medications: Ambulatory Orders Aspirin [ASA -] 81 mg PO DAILY #30 tab.chew 05/08/17 Carvedilol 6.25 mg PO BID 05/24/17 Tamsulosin HCl 0.4 mg PO DAILY 05/24/17 Simvastatin 20 mg PO HS 06/10/17 Trazodone HCl 50 mg PO HS 06/10/17 Bacitracin - [Bacitracin Topical Ointment -] 1 applic TP BID #1 tube 06/21/17 Clopidogrel Bisulfate [Plavix -] 75 mg PO AM #30 tab 06/21/17 Spironolactone 25 mg PO DAILY #30 tab 06/21/17 Ciprofloxacin 0.3% Eye Drops [Ciloxan 0.3% Eye Drops -] 4 drop NR BID 06/27/17 Isosorbide Mononitrate [Imdur -] 30 mg PO DAILY 06/27/17 Potassium Chloride 20 meq PO DAILY 06/27/17 Torsemide [Demadex] 40 mg PO DAILY 06/27/17 Vital Signs: Vital Signs Temperature 97.5 F L 06/28/17 06:48 Pulse Rate 75 06/28/17 06:48 Respiratory Rate 06/28/17 06:48 Blood Pressure 107/60 06/28/17 06:48 O2 Sat by Pulse Oximetry (%) 97 06/27/17 22:00 - Other Data Labs, Other Data: CBC, BMP 06/28/17 06:00 06/28/17 06:00 INR, PTT INR 1.34 (0.82-1.09) H 06/27/17 13:31 Troponin, BNP 06/27/17 19:28 Troponin I 0.04 D Troponin, BNP 06/27/17 19:28 Troponin I 0.04 D <Kelvin Campuzano H - Last Filed: 06/28/17 11:44> Vital Signs: Vital Signs Temperature 97.5 F L 06/28/17 06:48 Pulse Rate 75 06/28/17 06:48 Respiratory Rate 20 06/28/17 06:48 Blood Pressure 107/60 06/28/17 06:48 O2 Sat by Pulse Oximetry (%) 97 06/27/17 22:00 - Other Data Labs, Other Data: CBC, BMP 06/28/17 06:00 06/28/17 06:00 INR, PTT INR 1.34 (0.82-1.09) H 06/27/17 13:31 Troponin, BNP 06/27/17 19:28 Troponin I 0.04 D Troponin, BNP 06/27/17 19:28 Troponin I 0.04 D <Joann Blake A - Last Filed: 06/28/17 12:40>
--- NOTE | 2017-06-28 12:49 | PN ---
Progress Note (short form) - Note Progress Note: PULMONARY CONSULTATION DICTATED 06/28/17 IMP ACUTE ON CHRONIC SYSTOLIC CHF NON-COMPLIANCE ASHD S/P CABG,NSTEMI CKD COPD HLD HTN PLAN DIURETICS O2 DAILY WTS STRICT I+Os MONITOR LYTES F/U CHEST X-RAYS DR ANGELA Problem List - Problems (1) Acute exacerbation of CHF (congestive heart failure) Code(s): I50.9 - HEART FAILURE, UNSPECIFIED (2) Orthopnea Code(s): R06.01 - ORTHOPNEA (3) SOB (shortness of breath) Code(s): R06.02 - SHORTNESS OF BREATH (4) CAD (coronary artery disease) Code(s): I25.10 - ATHSCL HEART DISEASE OF [place] CORONARY ARTERY W/O ANG PCTRS (5) Chronic kidney disease (CKD) stage G3a/A2, moderately decreased glomerular filtration rate (GFR) between 45-59 mL/min/1.73 square meter and albuminuria creatinine ratio between 30-299 mg/g Code(s): N18.3 - CHRONIC KIDNEY DISEASE, STAGE 3 (MODERATE) (6) CHF (congestive heart failure) Code(s): I50.9 - HEART FAILURE, UNSPECIFIED Qualifiers: Congestive heart failure type: unspecified congestive heart failure type Congestive heart failure chronicity: acute on chronic Qualified Code(s): I50.9 - Heart failure, unspecified (7) Weakness Code(s): R53.1 - WEAKNESS (8) Hypertension Code(s): I10 - ESSENTIAL (PRIMARY) HYPERTENSION
--- NOTE | 2017-06-28 14:24 | PN ---
Physical Exam: SUBJECTIVE: Patient seen and examined. Complains of dizziness and leg weakness. Says he has a hard time walking. Denies cough, fevers, chills, nausea, vomiting , abdominal pain. OBJECTIVE: Vital Signs Period Temp Pulse Resp BP Sys/العلي Pulse Ox Last 24 Hr 97.5 F-98.9 F 73-84 16-20 102-125/53-80 96-98 GENERAL: The patient is awake, alert, and fully oriented, in no acute distress. HEAD: Normal with no signs of trauma. ENT: Bleeding from right nostril. NECK: supple. LUNGS: CTA B/L, crackles in lower base HEART: + JVD, Regular rate and rhythm, S1, S2 without murmur, rub or gallop. ABDOMEN: Soft, nontender, nondistended, normoactive bowel sounds, no guarding, no rebound, no hepatosplenomegaly, no masses. EXTREMITIES: 2+ pulses, B/L LE 2+ edema (improved since last discharge) PSYCH: Normal mood, normal affect. Laboratory Results - last 24 hr 06/27/17 06/27/17 06/28/17 19:28 21:45 06:00 WBC 4.5 RBC 3.72 L Hgb 10.7 L Hct 32.6 L MCV 87.5 MCH 28.7 MCHC 32.7 RDW 15.4 Plt Count 117 L MPV 9.7 Sodium Potassium Chloride Carbon Dioxide Anion Gap BUN Creatinine Creat Clearance w eGFR POC Glucometer 121 Random Glucose Calcium Phosphorus Magnesium Total Bilirubin AST ALT Alkaline Phosphatase Creatine Kinase 75 Troponin I 0.04 D Total Protein Albumin 06/28/17 06/28/17 06/28/17 06:00 06:49 11:22 WBC RBC Hgb Hct MCV MCH MCHC RDW Plt Count MPV Sodium 135 L Potassium 3.2 L Chloride 92 L Carbon Dioxide 34 H Anion Gap 9 BUN 48 H Creatinine 2.1 H Creat Clearance w eGFR 30.02 POC Glucometer 105 122 Random Glucose 92 D Calcium 8.6 Phosphorus 3.4 Magnesium 2.5 H Total Bilirubin 1.0 AST 16 ALT 20 Alkaline Phosphatase 72 Creatine Kinase Troponin I Total Protein 6.5 Albumin 3.2 L Active Medications Generic Name Dose Route Start Last Admin Trade Name Freq PRN Reason Stop Dose Admin Aspirin 81 mg 06/28/17 10:00 06/28/17 09:35 Asa - PO 81 mg DAILY JEREMÍAS Administration Atorvastatin Calcium 40 mg 06/27/17 22:00 06/27/17 22:14 Lipitor - PO Not Given HS JEREMÍAS Bacitracin 1 applic 06/27/17 22:00 06/28/17 09:35 Bacitracin - TP 1 applic BID JEREMÍAS Administration Carvedilol 6.25 mg 06/27/17 22:00 06/28/17 10:34 Coreg - PO Not Given BID JEREMÍAS Ciprofloxacin 4 drop 06/27/17 22:00 06/28/17 09:35 Ciloxan 0.3% Eye Drops - NR Not Given BID JEREMÍAS Clopidogrel Bisulfate 75 mg 06/28/17 10:00 06/28/17 09:38 Plavix - PO 75 mg DAILY JEREMÍAS Administration Insulin Aspart 1 vial 06/27/17 16:30 06/28/17 11:23 Novolog Vial Sliding Scale - SQ Not Given ACHS [facility] Protocol Isosorbide Mononitrate 30 mg 06/29/17 22:00 Imdur - PO HS [facility] Potassium Chloride 20 meq 06/28/17 22:00 K-Dur - PO BID JEREMÍAS Spironolactone 25 mg 06/28/17 10:00 06/28/17 10:34 Aldactone - PO Not Given DAILY JEREMÍAS Tamsulosin HCl 0.4 mg 06/29/17 22:00 Flomax - PO HS JEREMÍAS Torsemide 40 mg 06/28/17 15:13 06/27/17 15:41 Demadex - PO 06/28/17 15:14 40 mg ONCE ONE Administration Torsemide 20 mg 06/28/17 12:19 Demadex - PO DAILY [facility] Trazodone HCl 50 mg 06/27/17 22:00 06/27/17 22:11 Desyrel - PO 50 mg HS JEREMÍAS Administration ASSESSMENT/PLAN: 87M with multiple medical problems presents to the hospital with acute on chronic left sided systolic heart failure with dizziness and leg weakness. #Acute on chronic CHF left sided systolic exacerbation: -tele monitoring, strict ins and outs, daily weights -BUN/Creatinine at baseline -continue spironolactone 25mg -coreg 6.25 mg po BID -Imdur 30mg at night #Dizziness and possible vertigo -patient recent history of otitis media -Continue Cipro ear drops -f/u ENT outpatient #CAD: see above statin aspirin plavix #HTN: coreg 6.25 BID IMDUR 30mg po daily in evening spironolactone 25mg #Hyperglycemia: fingersticks ACHS to monitor glucose values. HbA1C 6.5 patient diabetic type 2 fingersticks well controlled at this time #COPD: not in acute exacerbation at this time pulmonology consult appreciated bronchodialtors PRN O2 PRN #CKD: Creatinine at baseline will continue to trend and monitor #Anxiety/Insomnia -Continue Trazodone #BPH: restart home dose of flomax at .4mg in evenings FEN: Not on IV Fluids Given KDur 60mg Strict sodium diet PPx: Heparin stopped due to epistaxis On Plavix and aspirin no GI PPx indicated Visit type - Emergency Visit Emergency Visit: Yes ED Registration Date: 06/27/17 Care time: The patient presented to the Emergency Department on the above date and was hospitalized for further evaluation of their emergent condition. - New Patient This patient is new to me today: No - Critical Care Critical Care patient: No
--- NOTE | 2017-06-28 15:22 | PN ---
Teaching Attending Note Name of Resident: Kelsy Red ATTENDING PHYSICIAN STATEMENT I saw and evaluated the patient. I reviewed the resident's note and discussed the case with the resident. I agree with the resident's findings and plan as documented. SUBJECTIVE: Patient is c/o having dizziness, and having epistaxis OBJECTIVE: Vital Signs Temperature 97.5 F L 06/28/17 14:00 Pulse Rate 80 06/28/17 14:00 Respiratory Rate 18 06/28/17 14:00 Blood Pressure 115/67 06/28/17 14:00 O2 Sat by Pulse Oximetry (%) 97 06/27/17 22:00 CBCD WBC 4.5 K/mm3 (4.0-10.0) 06/28/17 06:00 RBC 3.72 M/mm3 (4.00-5.60) L 06/28/17 06:00 Hgb 10.7 GM/dL (11.7-16.9) L 06/28/17 06:00 Hct 32.6 % (35.4-49) L 06/28/17 06:00 MCV 87.5 fl (80-96) 06/28/17 06:00 MCHC 32.7 g/dl (32.0-35.9) 06/28/17 06:00 RDW 15.4 % (11.9-15.9) 06/28/17 06:00 Plt Count 117 K/MM3 (134-434) L 06/28/17 06:00 MPV 9.7 fl (7.5-11.1) 06/28/17 06:00 CMP Sodium 135 mmol/L (136-145) L 06/28/17 06:00 Potassium 3.2 mmol/L (3.5-5.1) L 06/28/17 06:00 Chloride 92 mmol/L (98-107) L 06/28/17 06:00 Carbon Dioxide 34 mmol/L (21-32) H 06/28/17 06:00 Anion Gap 9 (8-16) 06/28/17 06:00 BUN 48 mg/dL (7-18) H 06/28/17 06:00 Creatinine 2.1 mg/dL (0.7-1.3) H 06/28/17 06:00 Creat Clearance w eGFR 30.02 (>60) 06/28/17 06:00 Random Glucose 92 mg/dL (74-106) D 06/28/17 06:00 Calcium 8.6 mg/dL (8.5-10.1) 06/28/17 06:00 Total Bilirubin 1.0 mg/dL (0.2-1.0) 06/28/17 06:00 AST 16 U/L (15-37) 06/28/17 06:00 ALT 20 U/L (12-78) 06/28/17 06:00 Alkaline Phosphatase 72 U/L (45-117) 06/28/17 06:00 Total Protein 6.5 g/dl (6.4-8.2) 06/28/17 06:00 Albumin 3.2 g/dl (3.4-5.0) L 06/28/17 06:00 CARDIAC ENZYMES Creatine Kinase 75 IU/L (39-308) 06/27/17 19:28 Troponin I 0.04 ng/ml (0.00-0.05) D 06/27/17 19:28 Current Medications Generic Name Dose Route Start Last Admin Trade Name Yovaniq PRN Reason Stop Dose Admin Aspirin 81 mg 06/28/17 10:00 06/28/17 09:35 Asa - PO 81 mg DAILY JEREMÍAS Administration Atorvastatin Calcium 40 mg 06/27/17 22:00 06/27/17 22:14 Lipitor - PO Not Given HS JEREMÍAS Bacitracin 1 applic 06/27/17 22:00 06/28/17 09:35 Bacitracin - TP 1 applic BID JEREMÍAS Administration Carvedilol 6.25 mg 06/27/17 22:00 06/28/17 10:34 Coreg - PO Not Given BID JEREMÍAS Ciprofloxacin 4 drop 06/27/17 22:00 06/28/17 09:35 Ciloxan 0.3% Eye Drops - NR Not Given BID JEREMÍAS Clopidogrel Bisulfate 75 mg 06/28/17 10:00 06/28/17 09:38 Plavix - PO 75 mg DAILY JEREMÍAS Administration Insulin Aspart 1 vial 06/27/17 16:30 06/28/17 11:23 Novolog Vial Sliding Scale - SQ Not Given ACHS JEREMÍAS Protocol Isosorbide Mononitrate 30 mg 06/29/17 22:00 Imdur - PO HS JEREMÍAS Potassium Chloride 20 meq 06/28/17 22:00 K-Dur - PO BID JEREMÍAS Spironolactone 25 mg 06/28/17 10:00 06/28/17 10:34 Aldactone - PO Not Given DAILY JEREMÍAS Tamsulosin HCl 0.4 mg 06/29/17 22:00 Flomax - PO HS JEREMÍAS Torsemide 20 mg 06/28/17 12:19 Demadex - PO DAILY JEREMÍAS Trazodone HCl 50 mg 06/27/17 22:00 06/27/17 22:11 Desyrel - PO 50 mg HS [facility] Administration Home Medications Medication Instructions Recorded Aspirin [ASA -] 81 mg PO DAILY #30 tab.chew 05/08/17 Carvedilol 6.25 mg PO BID 05/24/17 Tamsulosin HCl 0.4 mg PO DAILY 05/24/17 Simvastatin 20 mg PO HS 06/10/17 Trazodone HCl 50 mg PO HS 06/10/17 Bacitracin - [Bacitracin Topical 1 applic TP BID #1 tube 06/21/17 Ointment -] Clopidogrel Bisulfate [Plavix -] 75 mg PO AM #30 tab 06/21/17 Spironolactone 25 mg PO DAILY #30 tab 06/21/17 Ciprofloxacin 0.3% Eye Drops 4 drop NR BID 06/27/17 [Ciloxan 0.3% Eye Drops -] Isosorbide Mononitrate [Imdur -] 30 mg PO DAILY 06/27/17 Potassium Chloride 20 meq PO DAILY 06/27/17 Torsemide [Demadex] 40 mg PO DAILY 06/27/17 PE: per resident's notes, patient feels weak Extremeties lower positive for 1 plus edema ASSESSMENT AND PLAN: 87M with multiple medical problems presents to the hospital with acute on chronic left sided systolic heart failure presents with intermittent shortness of breath. # acute on chronic CHF left sided systolic exacerbation: cardiology consult appreciated and discussed with, since patient is feeling dizzy , discussed to cut down the Torsemide to 20mg daily from 30mg and will monitor, strict I/O, daily weights, continue spironolactone, coreg 6.25 mg po BID ,Imdur 30mg po to be given at night time since patient is feling dizzy and lightheaded. # Hc of CAD/HLD: continue statin/plavix/aspirin # HTN: continue coreg 6.25mg po BID , IMDUR 30mg po daily # hyperglycemia: fingersticks ACHS to monitor glucose values. # COPD: stable , bronchodialtors PRN continue, O2 PRN # CKD: Creatinine at baseline # BPH: restart home dose of flomax, will give it to him qhs since having dizziness # anxiety/insomnia: Continue trazadone will reduce the dose to 25mg po qhs # Pulm HTN: DVT Px: No heparin since patient has hx of bleeding on Heparin,, and is having epistaxis on and off but cannot discontinue aspirin since patient has a new stent like 2 months old continue Plavix/asa, and has swollen LE can't use SCDs since swelling of LEs.
[2017-06-28] MEDS: TORSEMIDE 20 MG TABLET (FP) PO ONE (15:25)
[2017-06-28] MEDS ORDERED: ACETAMINOPHEN 325 MG TABLET (FP) PO PRN (15:34)
[2017-06-28] MEDS ORDERED: traZODone HCL 50 MG TABLET (FP) PO SCH (15:37)
[2017-06-28] MEDS: POTASSIUM CHLORIDE TABS 20 MEQ TABLET.ER (FP) PO SCH (21:46)
[2017-06-28] MEDS: traZODone HCL 50 MG TABLET (FP) PO SCH (21:46)
[2017-06-28] MEDS: ATORVASTATIN CA 20 MG TABLET (FP) PO SCH (21:47)
[2017-06-29] MEDS: INSULIN SLIDING SCALE (NOVOLOG) 1 VIAL SQ SCH ×4 (06:12→22:15)
[2017-06-29] MEDS: ASPIRIN 81 MG CHEWABLE TABLETS PO SCH (09:53)
[2017-06-29] MEDS: SPIRONOLACTONE 25 MG TABLET (FP) PO SCH ×2 (09:53→23:10)
[2017-06-29] MEDS: CLOPIDOGREL BISULFATE 75 MG TABLET (FP) PO SCH (09:53)
[2017-06-29] MEDS: POTASSIUM CHLORIDE TABS 20 MEQ TABLET.ER (FP) PO SCH ×2 (09:53→22:00)
[2017-06-29] MEDS: CARVEDILOL 6.25 MG TABLET (FP) PO SCH ×2 (09:53→22:15)
[2017-06-29] MEDS: TORSEMIDE 20 MG TABLET (FP) PO SCH (09:53)
[2017-06-29] MEDS: BACITRACIN 15 GM TUBE TOPICAL OINTMENT TP SCH ×2 (09:54→22:10)
[2017-06-29] MEDS: CIPROFLOXACIN HCL 0.3% OPHTH 2.5ML BOTTLE NR SCH ×2 (10:42→22:15)
--- NOTE | 2017-06-29 13:27 | PN ---
Progress Note (short form) - Note Progress Note: Patient seen in the [facility] in a wheelchair. Reports some cough, but seems a little better. He says that he feels that the medications are giving him a OLIVEIRA. Intake & Output 06/26/17 06/27/17 06/28/17 06/29/17 23:59 23:59 23:59 23:59 Intake Total 0 500 Output Total 550 500 Balance -550 0 Weight 178 lb 5 oz 172 lb 8 oz 173 lb 6 oz Last Vital Signs Temp Pulse Resp BP Pulse Ox 98.9 F 87 20 121/72 97 06/29/17 10:00 06/29/17 10:00 06/29/17 11:00 06/29/17 10:00 06/29/17 11:00 Active Medications Acetaminophen (Tylenol -) 650 mg PO Q6H PRN PRN Reason: FEVER OR PAIN Last Admin: 06/28/17 16:16 Dose: 650 mg Aspirin (Asa -) 81 mg PO DAILY [facility] Last Admin: 06/29/17 09:53 Dose: 81 mg Atorvastatin Calcium (Lipitor -) 40 mg PO HS [facility] Last Admin: 06/28/17 21:47 Dose: Not Given Bacitracin (Bacitracin -) 1 applic TP BID [facility] Last Admin: 06/29/17 09:54 Dose: 1 applic Carvedilol (Coreg -) 6.25 mg PO BID [facility] Last Admin: 06/29/17 09:53 Dose: 6.25 mg Ciprofloxacin (Ciloxan 0.3% Eye Drops -) 4 drop NR BID [facility] Last Admin: 06/28/17 21:46 Dose: Not Given Clopidogrel Bisulfate (Plavix -) 75 mg PO DAILY [facility] Last Admin: 06/29/17 09:53 Dose: 75 mg Insulin Aspart (Novolog Vial Sliding Scale -) 1 vial SQ ACHS [facility] PRN Reason: Protocol Last Admin: 06/29/17 11:57 Dose: Not Given Isosorbide Mononitrate (Imdur -) 30 mg PO HS [facility] Potassium Chloride (K-Dur -) 20 meq PO BID [facility] Last Admin: 06/29/17 09:53 Dose: 20 meq Spironolactone (Aldactone -) 25 mg PO DAILY [facility] Last Admin: 06/29/17 09:53 Dose: 25 mg Tamsulosin HCl (Flomax -) 0.4 mg PO HS [facility] Torsemide (Demadex -) 20 mg PO DAILY [facility] Last Admin: 06/29/17 09:53 Dose: 20 mg Trazodone HCl (Desyrel -) 25 mg PO HS [facility] Last Admin: 06/28/17 21:46 Dose: 25 mg GENERAL: Awake, alert, in no acute distress. HEAD: Normal with no signs of trauma. NECK: supple LUNGS: fine bibasilar crackles improved from discharge HEART: Regular rate and rhythm, normal S1 and S2 without murmur, rub or gallop. no JVD ABDOMEN: Soft, nontender, not distended, normoactive bowel sounds, no guarding, no rebound LOWER EXTREMITIES: warm, No calf tenderness. 2+ pitting edema bilaterally up to knee. both legs are significantly decreased in size when compared to exam on discharge NEUROLOGICAL: Cranial nerves II-XII grossly intact. Normal speech. gait unchanged Laboratory Results - last 24 hr 06/28/17 06/28/17 06/29/17 17:30 21:55 06:03 POC Glucometer 152 124 110 06/29/17 11:56 POC Glucometer 145 Problem List - Problems (1) Acute exacerbation of CHF (congestive heart failure) Code(s): I50.9 - HEART FAILURE, UNSPECIFIED (2) Orthopnea Code(s): R06.01 - ORTHOPNEA (3) SOB (shortness of breath) Code(s): R06.02 - SHORTNESS OF BREATH (4) CAD (coronary artery disease) Code(s): I25.10 - ATHSCL HEART DISEASE OF [place] CORONARY ARTERY W/O ANG PCTRS (5) Chronic kidney disease (CKD) stage G3a/A2, moderately decreased glomerular filtration rate (GFR) between 45-59 mL/min/1.73 square meter and albuminuria creatinine ratio between 30-299 mg/g Code(s): N18.3 - CHRONIC KIDNEY DISEASE, STAGE 3 (MODERATE) (6) CHF (congestive heart failure) Code(s): I50.9 - HEART FAILURE, UNSPECIFIED Qualifiers: Congestive heart failure type: unspecified congestive heart failure type Congestive heart failure chronicity: acute on chronic Qualified Code(s): I50.9 - Heart failure, unspecified (7) Weakness Code(s): R53.1 - WEAKNESS (8) Hypertension Code(s): I10 - ESSENTIAL (PRIMARY) HYPERTENSION IMP ACUTE ON CHRONIC SYSTOLIC CHF NON-COMPLIANCE ASHD S/P CABG,NSTEMI CKD COPD HLD HTN PLAN NOTED IMDUR CHANGED TO QHS O2 DAILY WTS BD TX MONITOR SHREE NEBWY
--- NOTE | 2017-06-29 15:54 | PN ---
Progress Note (short form) - Note Progress Note: Continues to c/o having headache and dizziness. Otherwise stable. Vital Signs Temperature 98.1 F 06/29/17 14:00 Pulse Rate 73 06/29/17 14:00 Respiratory Rate 20 06/29/17 11:00 Blood Pressure 123/71 06/29/17 14:00 O2 Sat by Pulse Oximetry (%) 97 06/29/17 11:00 GENERAL: Awake, alert, in no acute distress. HEAD: Normal with no signs of trauma. NECK: supple LUNGS: minimal wheezing otherwise CTA BL HEART: Regular rate and rhythm, normal S1 and S2 without murmur, rub or gallop. no JVD ABDOMEN: Soft, nontender, not distended, normoactive bowel sounds, no guarding, no rebound LOWER EXTREMITIES: warm, No calf tenderness. 1+ pitting edema bilaterally up to knee. NEUROLOGICAL: Cranial nerves II-XII grossly intact. Normal speech. gait unchanged CBCD WBC 4.5 K/mm3 (4.0-10.0) 06/28/17 06:00 RBC 3.72 M/mm3 (4.00-5.60) L 06/28/17 06:00 Hgb 10.7 GM/dL (11.7-16.9) L 06/28/17 06:00 Hct 32.6 % (35.4-49) L 06/28/17 06:00 MCV 87.5 fl (80-96) 06/28/17 06:00 MCHC 32.7 g/dl (32.0-35.9) 06/28/17 06:00 RDW 15.4 % (11.9-15.9) 06/28/17 06:00 Plt Count 117 K/MM3 (134-434) L 06/28/17 06:00 MPV 9.7 fl (7.5-11.1) 06/28/17 06:00 CMP Sodium 135 mmol/L (136-145) L 06/28/17 06:00 Potassium 3.2 mmol/L (3.5-5.1) L 06/28/17 06:00 Chloride 92 mmol/L (98-107) L 06/28/17 06:00 Carbon Dioxide 34 mmol/L (21-32) H 06/28/17 06:00 Anion Gap 9 (8-16) 06/28/17 06:00 BUN 48 mg/dL (7-18) H 06/28/17 06:00 Creatinine 2.1 mg/dL (0.7-1.3) H 06/28/17 06:00 Creat Clearance w eGFR 30.02 (>60) 06/28/17 06:00 Random Glucose 92 mg/dL (74-106) D 06/28/17 06:00 Calcium 8.6 mg/dL (8.5-10.1) 06/28/17 06:00 Total Bilirubin 1.0 mg/dL (0.2-1.0) 06/28/17 06:00 AST 16 U/L (15-37) 06/28/17 06:00 ALT 20 U/L (12-78) 06/28/17 06:00 Alkaline Phosphatase 72 U/L (45-117) 06/28/17 06:00 Total Protein 6.5 g/dl (6.4-8.2) 06/28/17 06:00 Albumin 3.2 g/dl (3.4-5.0) L 06/28/17 06:00 CARDIAC ENZYMES Creatine Kinase 75 IU/L (39-308) 06/27/17 19:28 Troponin I 0.04 ng/ml (0.00-0.05) D 06/27/17 19:28 Current Medications Generic Name Dose Route Start Last Admin Trade Name Freq PRN Reason Stop Dose Admin Acetaminophen 650 mg 06/28/17 15:34 06/28/17 16:16 Tylenol - PO 650 mg Q6H PRN Administration FEVER OR PAIN Aspirin 81 mg 06/28/17 10:00 06/29/17 09:53 Asa - PO 81 mg DAILY JEREMÍAS Administration Atorvastatin Calcium 40 mg 06/27/17 22:00 06/28/17 21:47 Lipitor - PO Not Given HS JEREMÍAS Bacitracin 1 applic 06/27/17 22:00 06/29/17 09:54 Bacitracin - TP 1 applic BID JEREMÍAS Administration Carvedilol 6.25 mg 06/27/17 22:00 06/29/17 09:53 Coreg - PO 6.25 mg BID JEREMÍAS Administration Ciprofloxacin 4 drop 06/27/17 22:00 06/28/17 21:46 Ciloxan 0.3% Eye Drops - NR Not Given BID JEREMÍAS Clopidogrel Bisulfate 75 mg 06/28/17 10:00 06/29/17 09:53 Plavix - PO 75 mg DAILY JEREMÍAS Administration Insulin Aspart 1 vial 06/27/17 16:30 06/29/17 11:57 Novolog Vial Sliding Scale - SQ Not Given ACHS [facility] Protocol Potassium Chloride 20 meq 06/28/17 22:00 06/29/17 09:53 K-Dur - PO 20 meq BID JEREMÍAS Administration Spironolactone 12.5 mg 06/29/17 22:00 Aldactone - PO BID JEREMÍAS Tamsulosin HCl 0.4 mg 06/29/17 22:00 Flomax - PO HS JEREMÍAS Torsemide 20 mg 06/28/17 12:19 06/29/17 09:53 Demadex - PO 20 mg DAILY JEREMÍAS Administration Trazodone HCl 25 mg 06/28/17 22:00 06/28/17 21:46 Desyrel - PO 25 mg HS JEREMÍAS Administration Home Medications Medication Instructions Recorded Aspirin [ASA -] 81 mg PO DAILY #30 tab.chew 05/08/17 Carvedilol 6.25 mg PO BID 05/24/17 Tamsulosin HCl 0.4 mg PO DAILY 05/24/17 Simvastatin 20 mg PO HS 06/10/17 Trazodone HCl 50 mg PO HS 06/10/17 Bacitracin - [Bacitracin Topical 1 applic TP BID #1 tube 06/21/17 Ointment -] Clopidogrel Bisulfate [Plavix -] 75 mg PO AM #30 tab 06/21/17 Spironolactone 25 mg PO DAILY #30 tab 06/21/17 Ciprofloxacin 0.3% Eye Drops 4 drop NR BID 06/27/17 [Ciloxan 0.3% Eye Drops -] Isosorbide Mononitrate [Imdur -] 30 mg PO DAILY 06/27/17 Potassium Chloride 20 meq PO DAILY 06/27/17 Torsemide [Demadex] 40 mg PO DAILY 06/27/17 ASSESSMENT AND PLAN: 87M with multiple medical problems presents to the hospital with acute on chronic left sided systolic heart failure presents with intermittent shortness of breath. # acute on chronic CHF left sided systolic exacerbation: continue TOrsemide 20mg po qhs, will discontinue Imdur discussed with dr.Shick garcia to discontinue the medication since patient is having headache. I/Os, daily weights, continue spironolactone will split the dose to 12.5mg , coreg 6.25 mg po BID. # Hc of CAD/HLD: continue statin/plavix/aspirin # HTN: continue coreg 6.25mg po BID ,discontinued Imdur # hyperglycemia:Patient is refusing fingerstick and wants regular diet. # COPD: stable , bronchodialtors PRN continue, O2 PRN # CKD: Creatinine at baseline # BPH: restart home dose of flomax, will give it to him qhs since having dizziness # anxiety/insomnia: Continue trazadone will reduce the dose to 25mg po qhs # Pulm HTN: DVT Px: No heparin since patient has hx of bleeding on Heparin,, and is having epistaxis on and off but cannot discontinue aspirin since patient has a new stent like 2 months old continue Plavix/asa, and has swollen LE can't use SCDs since swelling of LEs. Visit type - Emergency Visit Emergency Visit: Yes ED Registration Date: 06/27/17 Care time: The patient presented to the Emergency Department on the above date and was hospitalized for further evaluation of their emergent condition. - New Patient This patient is new to me today: No - Critical Care Critical Care patient: No
--- NOTE | 2017-06-29 19:23 | CONS ---
DATE OF CONSULTATION: 06/28/2017 REFERRING PHYSICIAN: Brayan Sarah MD HISTORY: The patient is an 87-year-old white male known to me from previous hospitalizations with past medical history of CHF advanced, ASHD status post CABG 5 years ago, PSVT status post non-STEMI 1 month ago, BPH, COPD, chronic kidney disease, hyperlipidemia, hypertension recently hospitalized at [facility] secondary to CHF exacerbation. The patient was treated with Lasix and Dobutrex with good clinical response. He was transferred here. He was discharged home in stable condition. The patient is very noncompliant with medication. He states when he went home he started feeling lightheaded and had a metallic taste in his mouth at which time he stopped taking his medicines. He denies any fever or chills. Denies any chest pains or palpitations. He presented back to the emergency room with the complaint of lightheadedness and shortness of breath. The patient has a history of smoking. Quit at age 30. There is no occupational exposure to chemicals or fumes. PAST MEDICAL HISTORY: Again, includes ASHD status post CABG 5 years ago, status post recent [place], BPH, chronic COPD, CHF, chronic kidney disease, hyperlipidemia, hypertension. REVIEW OF SYSTEMS: Positive orthopnea, positive dyspnea, positive lightheadedness. No chest pain, no palpitations, no cough, no hemoptysis, no abdominal pain. Positive lower extremity edema. CURRENT MEDICATIONS: Include Flomax, Cipro eye drops, bacitracin, Desyrel, Coreg, Lipitor, Norvasc, Demadex, Aldactone, Imdur, aspirin, Plavix, and K-Dur. PHYSICAL EXAMINATION: General: The patient is an elderly white male, thin, well-developed, awake, alert currently in no acute distress. Vital Signs: He is currently afebrile. Blood pressure 103/53, respiratory rate 20, O2 97%. HEENT: Normocephalic and atraumatic. Neck: Supple. Heart: Regular S1, S2. Chest: A few bibasilar crackles. Abdomen: Soft. Bowel sounds are positive. Extremities: Bilateral extremity edema. LABORATORIES: WBC 4.5, hemoglobin 10.7, hematocrit 32.6 with a platelet count of 117,000. BUN 48, creatinine 2.1, potassium 3.2. BNP 26,000, INR 1.34. Chest x-ray: Mild cardiomegaly and mild congestion bilaterally. IMPRESSION: 1. Likely decompensated congestive heart failure most likely secondary to medical noncompliance. 2. Arteriosclerotic heart disease status post coronary artery bypass graft status post recent non-ST elevation myocardial infarction. 3. Chronic obstructive pulmonary disease. 4. Chronic kidney disease. 5. History of hypertension. 6. History of paroxysmal supraventricular tachycardia. 7. Hyperlipidemia. PLAN: Continue diuretics. Supplemental O2. Stress compliance with medications and diet. Strict Is and Os. Daily weights. Monitor electrolytes. EV ANGELA M.D. [id number]
[2017-06-29] MEDS ORDERED: ISOSORBIDE MONONITRATE 30 MG TAB.SR.24H (FP) PO SCH (22:00)
[2017-06-29] MEDS ORDERED: TAMSULOSIN HCL 0.4 MG CAP.ER.24H (FP) PO SCH (22:00)
[2017-06-29] MEDS: ATORVASTATIN CA 20 MG TABLET (FP) PO SCH (22:05)
[2017-06-29] MEDS: traZODone HCL 50 MG TABLET (FP) PO SCH (22:10)
[2017-06-30] MEDS: INSULIN SLIDING SCALE (NOVOLOG) 1 VIAL SQ SCH ×2 (06:30→12:01)
[2017-06-30] MEDS: POTASSIUM CHLORIDE TABS 20 MEQ TABLET.ER (FP) PO SCH (09:15)
[2017-06-30] MEDS: TORSEMIDE 20 MG TABLET (FP) PO SCH (09:16)
[2017-06-30] MEDS: SPIRONOLACTONE 25 MG TABLET (FP) PO SCH (09:16)
[2017-06-30 10:29] VITALS: BP 138/67; PULSE 75; TEMP 98.3
[2017-06-30] MEDS: CARVEDILOL 6.25 MG TABLET (FP) PO SCH (12:00)
[2017-06-30] MEDS: ASPIRIN 81 MG CHEWABLE TABLETS PO SCH (12:00)
[2017-06-30] MEDS: CLOPIDOGREL BISULFATE 75 MG TABLET (FP) PO SCH (12:00)
--- NOTE | 2017-06-30 12:10 | DS ---
Physical Exam: SUBJECTIVE: Patient seen and examined Patient is no longer feeling dizzy, denies having any headache. Comfortable with no acute distress OBJECTIVE: Vital Signs Temperature 98.3 F 06/30/17 10:00 Pulse Rate 75 06/30/17 10:00 Respiratory Rate 20 06/30/17 10:00 Blood Pressure 138/67 06/30/17 10:00 O2 Sat by Pulse Oximetry (%) 98 06/29/17 19:00 PHYSICAL EXAM GENERAL: The patient is awake, alert, and fully oriented, in no acute distress. HEAD: Normal with no signs of trauma. EYES: PERRL, extraocular movements intact, sclera anicteric, conjunctiva clear. ENT: Ears normal, nares patent, oropharynx clear without exudates, moist mucous membranes. NECK: Trachea midline, full range of motion, supple. LUNGS: Breath sounds equal, clear to auscultation bilaterally, no wheezes, no crackles, no accessory muscle use. HEART: Regular rate and rhythm, S1, S2 without murmur, rub or gallop. ABDOMEN: Soft, nontender, nondistended, normoactive bowel sounds, no guarding, no rebound. EXTREMITIES: 2+ pulses, warm, well-perfused, no edema. NEUROLOGICAL: Cranial nerves II through XII grossly intact. Normal speech. PSYCH: Normal mood, normal affect. SKIN: Warm, dry, normal turgor, no rashes or lesions noted. laboratory Results - last 24 hr 06/29/17 06/29/17 06/29/17 11:56 17:06 23:09 POC Glucometer 145 136 155 06/30/17 06:17 POC Glucometer 99 CBCD WBC 4.5 K/mm3 (4.0-10.0) 06/28/17 06:00 RBC 3.72 M/mm3 (4.00-5.60) L 06/28/17 06:00 Hgb 10.7 GM/dL (11.7-16.9) L 06/28/17 06:00 Hct 32.6 % (35.4-49) L 06/28/17 06:00 MCV 87.5 fl (80-96) 06/28/17 06:00 MCHC 32.7 g/dl (32.0-35.9) 06/28/17 06:00 RDW 15.4 % (11.9-15.9) 06/28/17 06:00 Plt Count 117 K/MM3 (134-434) L 06/28/17 06:00 MPV 9.7 fl (7.5-11.1) 06/28/17 06:00 CMP Sodium 135 mmol/L (136-145) L 06/28/17 06:00 Potassium 3.2 mmol/L (3.5-5.1) L 06/28/17 06:00 Chloride 92 mmol/L (98-107) L 06/28/17 06:00 Carbon Dioxide 34 mmol/L (21-32) H 06/28/17 06:00 Anion Gap 9 (8-16) 06/28/17 06:00 BUN 48 mg/dL (7-18) H 06/28/17 06:00 Creatinine 2.1 mg/dL (0.7-1.3) H 06/28/17 06:00 Creat Clearance w eGFR 30.02 (>60) 06/28/17 06:00 Random Glucose 92 mg/dL (74-106) D 06/28/17 06:00 Calcium 8.6 mg/dL (8.5-10.1) 06/28/17 06:00 Total Bilirubin 1.0 mg/dL (0.2-1.0) 06/28/17 06:00 AST 16 U/L (15-37) 06/28/17 06:00 ALT 20 U/L (12-78) 06/28/17 06:00 Alkaline Phosphatase 72 U/L (45-117) 06/28/17 06:00 Total Protein 6.5 g/dl (6.4-8.2) 06/28/17 06:00 Albumin 3.2 g/dl (3.4-5.0) L 06/28/17 06:00 CARDIAC ENZYMES Creatine Kinase 75 IU/L (39-308) 06/27/17 19:28 Troponin I 0.04 ng/ml (0.00-0.05) D 06/27/17 19:28 Home Medications Medication Instructions Recorded Aspirin [ASA -] 81 mg PO DAILY #30 tab.chew 05/08/17 Carvedilol 6.25 mg PO BID 05/24/17 Tamsulosin HCl 0.4 mg PO DAILY 05/24/17 Simvastatin 20 mg PO HS 06/10/17 Trazodone HCl 50 mg PO HS 06/10/17 Bacitracin - [Bacitracin Topical 1 applic TP BID #1 tube 06/21/17 Ointment -] Clopidogrel Bisulfate [Plavix -] 75 mg PO AM #30 tab 06/21/17 Spironolactone 25 mg PO DAILY #30 tab 06/21/17 Ciprofloxacin 0.3% Eye Drops 4 drop NR BID 06/27/17 [Ciloxan 0.3% Eye Drops -] Isosorbide Mononitrate [Imdur -] 30 mg PO DAILY 06/27/17 Potassium Chloride 20 meq PO DAILY 06/27/17 Torsemide [Demadex] 40 mg PO DAILY 06/27/17 Current Medications Generic Name Dose Route Start Last Admin Trade Name Freq PRN Reason Stop Dose Admin Acetaminophen 650 mg 06/28/17 15:34 06/28/17 16:16 Tylenol - PO 650 mg Q6H PRN Administration FEVER OR PAIN Aspirin 81 mg 06/28/17 10:00 06/30/17 12:00 Asa - PO 81 mg DAILY JEREMÍAS Administration Atorvastatin Calcium 40 mg 06/27/17 22:00 06/29/17 22:05 Lipitor - PO 40 mg HS JEREMÍAS Administration Bacitracin 1 applic 06/27/17 22:00 06/29/17 22:10 Bacitracin - TP 1 applic BID JEREMÍAS Administration Carvedilol 6.25 mg 06/27/17 22:00 06/30/17 12:00 Coreg - PO 6.25 mg BID JEREMÍAS Administration Ciprofloxacin 4 drop 06/27/17 22:00 06/29/17 22:15 Ciloxan 0.3% Eye Drops - NR Not Given BID JEREMÍAS Clopidogrel Bisulfate 75 mg 06/28/17 10:00 06/30/17 12:00 Plavix - PO 75 mg DAILY JEREMÍAS Administration Insulin Aspart 1 vial 06/27/17 16:30 06/30/17 12:01 Novolog Vial Sliding Scale - SQ Not Given ACHS JEREMÍAS Protocol Potassium Chloride 20 meq 06/28/17 22:00 06/30/17 09:15 K-Dur - PO 20 meq BID JEREMÍAS Administration Spironolactone 12.5 mg 06/29/17 22:00 06/30/17 09:16 Aldactone - PO 12.5 mg BID JEREMÍAS Administration Tamsulosin HCl 0.4 mg 06/29/17 22:00 06/29/17 22:10 Flomax - PO 0.4 mg HS JEREMÍAS Administration Torsemide 20 mg 06/28/17 12:19 06/30/17 09:16 Demadex - PO 20 mg DAILY JEREMÍAS Administration Trazodone HCl 25 mg 06/28/17 22:00 06/29/17 22:10 Desyrel - PO 25 mg HS JEREMÍAS Administration HOSPITAL COURSE: Date of Admission:06/27/17 Date of Discharge: 06/30/17 87M with multiple medical problems presents to the hospital with acute on chronic left sided systolic heart failure presents with intermittent shortness of breath. # acute on chronic CHF left sided systolic exacerbation: changed the medications to TOrsemide 20mg po qhs, will discontinued Imdur since was giving him severe headache and discussed with dr.Shick garcia to discontinue the medication since patient is having headache. continue spironolactone will split the dose to 12.5mg , coreg 6.25 mg po BID. # Hc of CAD/HLD: continue statin/plavix/aspirin # HTN: continue coreg 6.25mg po BID ,discontinued Imdur # hyperglycemia:Patient is refusing fingerstick and wants regular diet. # COPD: stable , bronchodialtors PRN continue, O2 PRN # CKD: Creatinine at baseline # BPH: restart home dose of flomax, will give it to him qhs since having dizziness # anxiety/insomnia: Continue trazadone will reduce the dose to 25mg po qhs since patient was feeling heaviness of his head with all the medications that he is getting at night # Pulm HTN: DVT Px: No heparin since patient has hx of bleeding on Heparin,, and is having epistaxis on and off but cannot discontinue aspirin since patient has a new stent like 2 months old continue Plavix/asa, and has swollen LE can't use SCDs since swelling of LEs. Minutes to complete discharge: 45 Discharge Summary Reason For Visit: CONGESTIVE HEART FAILURE Current Active Problems Acute exacerbation of CHF (congestive heart failure) (Acute) Chronic mastoiditis, bilateral (Acute) Orthopnea (Acute) SOB (shortness of breath) (Acute) CAD (coronary artery disease) (Chronic) Chronic kidney disease (CKD) stage G3a/A2, moderately decreased glomerular filtration rate (GFR) between 45-59 mL/min/1.73 square meter and albuminuria creatinine ratio between 30-299 mg/g (Chronic) Renal insufficiency (Chronic) Condition: Stable - Instructions Diet, Activity, Other Instructions: 2GM SODIUM DIET CONTINUE WE DISCONTINUED IMDUR 30MG PO DAILY Take your spironolactone 12.5mg orally 2 times per day (instead of taking 25mg orally once a day) Take your Trazodone 1/2 of the tablet =25mg ( from 50mg at night) Your Tamsulosin 0.4mg take it at night time . Referrals: Anmol Casey MD [Primary Care Provider] - 1 Week Kelvin Campuzano MD [Staff Physician] - 1 Week Disposition: HOME - Home Medications Comprehensive Discharge Medication List: Ambulatory Orders Aspirin [ASA -] 81 mg PO DAILY #30 tab.chew 05/08/17 Carvedilol 6.25 mg PO BID 05/24/17 Tamsulosin HCl 0.4 mg PO DAILY 05/24/17 Simvastatin 20 mg PO HS 06/10/17 Trazodone HCl 50 mg PO HS 06/10/17 Bacitracin - [Bacitracin Topical Ointment -] 1 applic TP BID #1 tube 06/21/17 Clopidogrel Bisulfate [Plavix -] 75 mg PO AM #30 tab 06/21/17 Spironolactone 25 mg PO DAILY #30 tab 06/21/17 Ciprofloxacin 0.3% Eye Drops [Ciloxan 0.3% Eye Drops -] 4 drop NR BID 06/27/17 Isosorbide Mononitrate [Imdur -] 30 mg PO DAILY 06/27/17 Potassium Chloride 20 meq PO DAILY 06/27/17 Torsemide [Demadex] 40 mg PO DAILY 06/27/17 This patient is new to me today: No Emergency Visit: Yes ED Registration Date: 06/27/17 Care time: The patient presented to the Emergency Department on the above date and was hospitalized for further evaluation of their emergent condition. Critical Care patient: No - Discharge Referral Referred to [facility] Med P.C.: No
--- NOTE | 2017-06-30 13:19 | PN ---
Progress Note (short form) - Note Progress Note: Appears overall better. No acute events overnight. Intake & Output 06/27/17 06/28/17 06/29/17 06/30/17 23:59 23:59 23:59 23:59 Intake Total 0 510 440 Output Total 550 500 Balance -550 10 440 Weight 178 lb 5 oz 172 lb 8 oz 173 lb 6 oz 175 lb Last Vital Signs Temp Pulse Resp BP Pulse Ox 98.3 F 75 20 138/67 98 06/30/17 10:00 06/30/17 10:00 06/30/17 11:00 06/30/17 10:00 06/30/17 11:00 GENERAL: Awake, alert, in no acute distress. HEAD: Normal with no signs of trauma. NECK: supple LUNGS: scattered basilar rhonchi HEART: Regular rate and rhythm, normal S1 and S2 without murmur, rub or gallop. no JVD ABDOMEN: Soft, nontender, not distended, normoactive bowel sounds, no guarding, no rebound LOWER EXTREMITIES: warm, less edema NEUROLOGICAL: non-focal Laboratory Results - last 24 hr 06/29/17 06/29/17 06/30/17 17:06 23:09 06:17 POC Glucometer 136 155 99 06/30/17 11:57 POC Glucometer 131 Problem List - Problems (1) Acute exacerbation of CHF (congestive heart failure) Code(s): I50.9 - HEART FAILURE, UNSPECIFIED (2) Orthopnea Code(s): R06.01 - ORTHOPNEA (3) SOB (shortness of breath) Code(s): R06.02 - SHORTNESS OF BREATH (4) CAD (coronary artery disease) Code(s): I25.10 - ATHSCL HEART DISEASE OF [place] CORONARY ARTERY W/O ANG PCTRS (5) Chronic kidney disease (CKD) stage G3a/A2, moderately decreased glomerular filtration rate (GFR) between 45-59 mL/min/1.73 square meter and albuminuria creatinine ratio between 30-299 mg/g Code(s): N18.3 - CHRONIC KIDNEY DISEASE, STAGE 3 (MODERATE) (6) CHF (congestive heart failure) Code(s): I50.9 - HEART FAILURE, UNSPECIFIED Qualifiers: Congestive heart failure type: unspecified congestive heart failure type Congestive heart failure chronicity: acute on chronic Qualified Code(s): I50.9 - Heart failure, unspecified (7) Weakness Code(s): R53.1 - WEAKNESS (8) Hypertension Code(s): I10 - ESSENTIAL (PRIMARY) HYPERTENSION IMP ACUTE ON CHRONIC SYSTOLIC CHF NON-COMPLIANCE ASHD S/P CABG,NSTEMI CKD COPD HLD HTN PLAN BD TX NO SMOKING D/C HOME IN [place] DR [place]BY
== END 2017-06-30 13:12 | disposition home or self-care (01) ==
LOC: JER 12:09 → JERBED 14:50 → J4W 20:56
PROVIDERS: ADMIT Internal Medicine; ATTEND Internal Medicine
DX: I50.23 Acute on chronic systolic (congestive) heart failure (principal); I12.9 Hypertensive chronic kidney disease with stage 1 through stage 4 chronic kidney disease, or unspecified chronic kidney disease; I25.10 Atherosclerotic heart disease of native coronary artery without angina pectoris; I25.2 Old myocardial infarction; E78.5 Hyperlipidemia, unspecified; J44.9 Chronic obstructive pulmonary disease, unspecified; N40.0 Benign prostatic hyperplasia without lower urinary tract symptoms; F41.9 Anxiety disorder, unspecified; G47.00 Insomnia, unspecified; Z95.1 Presence of aortocoronary bypass graft; Z95.5 Presence of coronary angioplasty implant and graft; Z95.810 Presence of automatic (implantable) cardiac defibrillator; Z88.1 Allergy status to other antibiotic agents; Z88.8 Allergy status to other drugs, medicaments and biological substances; Z79.01 Long term (current) use of anticoagulants; Z79.82 Long term (current) use of aspirin; Z87.891 Personal history of nicotine dependence; R73.9 Hyperglycemia, unspecified; Z91.14 Patient's other noncompliance with medication regimen; R06.01 Orthopnea; N18.3 Chronic kidney disease, stage 3 (moderate); H70.13 Chronic mastoiditis, bilateral; N28.9 Disorder of kidney and ureter, unspecified
CPT/HCPCS: 36415; 71010-TC; 80053; 83735; 83880; 84100; 84484; 85025; 85027; 85610; 93005; 93010; 99285-25; G0378

== ENCOUNTER 2017-07-04 20:43 | Inpatient (IN) | payer BC, OTHER ==
[2017-07-04] MEDS ORDERED: FUROSEMIDE 40 MG/4 ML INJECTABLE VIAL IVPB ONE (22:06)
--- NOTE | 2017-07-04 22:12 | PDOC ---
History of Present Illness - General Chief Complaint: Psychiatric Stated Complaint: SHORTNESS OF BREATH Time Seen by Provider: 07/04/17 21:22 History Source: Patient, Old Records Exam Limitations: No Limitations - History of Present Illness Initial Comments: 07/05/17 00:37 87yo Male patient with extensive past medical history that includes: HTN, HLD, CKD, COPD, BPH, CABG, CAD, NSTEMI w/ Stent placement, recent admission to this hospital for systolic HF and was on dobutamine. Patient returns c/o generalized weakness, SOB, poor appetite, and not taking his medications because they make him feel sick. Patient denies CP, Abd pain, n/v/d, rash, fever, cough, rectal bleeding or any other complaints at this time. Timing/Duration: getting worse Severity: severe Modifying Factors: worse with: cold therapy, eating, immobilization, medication , movement, rest, other Associated Symptoms: reports: loss of appetite, malaise, shortness of breath, weakness. denies: denies symptoms, chest pain, cough, diaphoresis, fever/chills , headaches, nausea/vomiting, rash, seizure, syncope, other Past History - Travel Traveled outside of the country in the last 30 days: No Close contact w/someone who was outside of country & ill: No - Past Medical History Allergies/Adverse Reactions: Allergies Allergy/AdvReac Type Severity Reaction Status Date / Time amoxicillin trihydrate AdvReac Mild gi upset Verified 07/04/17 21:33 [From Augmentin] atorvastatin calcium AdvReac Mild gi upset Verified 07/04/17 21:33 [From Lipitor] potassium clavulanate AdvReac Mild gi upset Verified 07/04/17 21:33 [From Augmentin] Home Medications: Ambulatory Orders Carvedilol 6.25 mg PO BID 05/24/17 Simvastatin 20 mg PO HS 06/10/17 Bacitracin - [Bacitracin Topical Ointment -] 1 applic TP BID #1 tube 06/21/17 Clopidogrel Bisulfate [Plavix -] 75 mg PO AM #30 tab 06/21/17 Ciprofloxacin 0.3% Eye Drops [Ciloxan 0.3% Eye Drops -] 4 drop NR BID 06/27/17 Potassium Chloride 20 meq PO DAILY 06/27/17 Aspirin [Ecotrin] 81 mg PO DAILY #30 tablet. 06/30/17 Spironolactone [Aldactone -] 12.5 mg PO BID #60 tablet 06/30/17 Tamsulosin HCl [Flomax -] 0.4 mg PO HS #30 cap 06/30/17 Torsemide [Demadex -] 20 mg PO DAILY #30 tablet 06/30/17 Trazodone HCl [Desyrel -] 25 mg PO HS tablet 06/30/17 Cardiac Disorders: Yes (CABG (5 years ago), CAD) COPD: Yes CHF: Yes HTN: Yes Hypercholesterolemia: Yes Psychiatric Problems: Yes (anxiety, insomnia) - Surgical History Cardiac Surgery: Yes (OPEN HEART SX, cardiac stent 05/30, AICD 05/30) - Immunization History Immunization Up to Date: Yes - Suicide/Smoking/Psychosocial Hx Smoking Status: No Smoking History: Never smoked Have you smoked in the past 12 months: No Number of Cigarettes Smoked Daily: 0 If you are a former smoker, when did you quit?: 1960 Information on smoking cessation initiated: No Hx Alcohol Use: No Drug/Substance Use Hx: No Substance Use Type: Alcohol Hx Substance Use Treatment: No Review of Systems - Review of Systems Able to Perform ROS?: Yes Is the patient limited Ukrainian proficient: No Constitutional: Yes: Weakness, Unintentional Wgt. Loss. No: Chills, Fever Respiratory: Yes: Shortness of Breath. No: Cough, Stridor, Wheezing Cardiac (ROS): Yes: Edema. No: Chest Pain, Lightheadedness, Palpitations, Syncope, Chest Tightness ABD/GI: Yes: Nausea, Poor Appetite. No: Abdominal Distended, Constipated, Diarrhea, Poor Fluid Intake, Vomiting, Abdominal cramping Neurological: Yes: Weakness All Other Systems: Reviewed and Negative *Physical Exam - Vital Signs Last Vital Signs Temp Pulse Resp BP Pulse Ox 98.6 F 106 H 16 134/93 100 07/04/17 21:33 07/04/17 21:33 07/04/17 21:33 07/04/17 21:33 07/04/17 21:33 - Physical Exam General Appearance: Yes: Appropriately Dressed, Apparent Distress, Disheveled, Moderate Distress. No: Nourished, Mild Distress, Severe Distress Neck: positive: Trachea midline, Supple. negative: Rigid, Decreased range of motion, Lymphadenopathy (R), Lymphadenopathy (L), Rigidity Respiratory/Chest: positive: Labored Respiration, Crackles Cardiovascular: positive: Tachycardia Gastrointestinal/Abdominal: positive: Normal Bowel Sounds, Soft, Distended. negative: Guarding, Rebound, Tenderness Musculoskeletal: positive: Normal Inspection. negative: CVA Tenderness, Vertebral Tenderness Extremity: positive: Normal Capillary Refill, Normal Range of Motion, Pedal Edema, Swelling. negative: Tender, Calf Tenderness, Erythema, Inflammation Integumentary: positive: Normal Color, Dry, Warm. 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 NML intact, Fully Oriented, Alert, Normal Mood/ Affect, Normal Response, Motor Strength 5/5 Heart Score/ECG Review - History History: Moderately suspicious - Electrocardiogram EKG: Normal - Age Age: >/= 65 - Risk Factors Risk Factors Heart Score: Yes Hx Hypercholesterolemia, Yes Hx Hypertension, No Hx Diabetes, No Smoking History, No Positive family hx of cardiac disease, No Hx Obesity Based on the list above the patient has:: >/=3 risk factors or Hx atherosclerotic disease - Troponin Troponin: 1-3x normal limit - Score Heart Score - Total: 6 - ECG Impressions Normal ECG: Yes Non-specific ST Elevation: No Ischemic Changes: No Torsades ashly Pointes: No WPW: No ED Treatment Course - LABORATORY CBC & Chemistry Diagram: 07/04/17 22:30 07/04/17 23:30 - RADIOLOGY Radiology Studies Ordered: Category Date Time Status CHEST X-RAY PORTABLE* [RAD] Stat Radiology 07/04/17 22:06 Ordered *DC/Admit/Observation/Transfer Diagnosis at time of Disposition: Renal insufficiency, Elevated troponin UTI (urinary tract infection) Qualifiers: Urinary tract infection type: acute cystitis Hematuria presence: without hematuria Qualified Code(s): N30.00 - Acute cystitis without hematuria Acute exacerbation of CHF (congestive heart failure) Qualifiers: Congestive heart failure type: systolic Qualified Code(s): I50.23 - Acute on chronic systolic (congestive) heart failure - Discharge Dispostion Condition at time of disposition: Fair Admit: Yes - Referrals Referrals: Anmol Casey MD [Primary Care Provider] -
[2017-07-04] MEDS ORDERED: FUROSEMIDE 40 MG/4 ML INJECTABLE VIAL ONE (22:18)
[2017-07-04 22:41] LABS: BASOPHIL 1.3 % (0-2.0); EOSINOPHIL 1.3 % (0-4.5); MCH 29.4 pg (25.7-33.7); MCHC 32.9 g/dl (32.0-35.9); MEAN CELL VOLUME 89.4 fl (80-96); MEAN PLT VOLUME 10.4 fl (7.5-11.1); PLATELET COUNT 153 K/MM3 (134-434)
[2017-07-04] MEDS ORDERED: AZITHROMYCIN IVPB 500 MG in DEXTROSE 5%-WATER - 250 ML IVPB ONE (23:35)
[2017-07-04] MEDS ORDERED: CEFTRIAXONE 1 GM in DEXTROSE 5%-WATER - 50 ML IVPB ONE (23:35)
[2017-07-04] MEDS ORDERED: AZITHROMYCIN IVPB 250 ML IVPB ONE (23:49)
[2017-07-05 00:08] LABS: ALBUMIN 3.6 g/dl (3.4-5.0); ANION GAP 13 (8-16); BILIRUBIN,TOTAL 1.8 mg/dL (0.2-1.0); CALCIUM 8.6 mg/dL (8.5-10.1); CO2 29 mmol/L (21-32); CREATININE 2.3 mg/dL (0.7-1.3); GLUCOSE,RANDOM 133 mg/dL (74-106); SGOT/AST 22 U/L (15-37); SGPT/ALT 18 U/L (12-78); TOT PROT 7.1 g/dl (6.4-8.2)
[2017-07-05 00:23] LABS: ALK PHOS 96 U/L (45-117); CPK 86 IU/L (39-308); TROPONIN I 0.11 ng/ml (0.00-0.05)
[2017-07-05 01:04] LABS: URINE APPEARANCE SLCLOUDY; URINE BILIRUBIN NEGATIVE (NEGATIVE); URINE BLOOD 2+ (NEGATIVE); URINE COLOR YELLOW; URINE GLUCOSE (UA) NEGATIVE (NEGATIVE); URINE KETONE NEGATIVE (NEGATIVE); URINE NITRITE NEGATIVE (NEGATIVE); URINE UROBILINOGEN 4.0 E.U/dl mg/dL (0.2-1.0)
[2017-07-05 01:10] LABS: URINE LEUK ESTERASE 1+ (NEGATIVE); URINE PROTEIN 1+ (NEGATIVE)
[2017-07-05 01:34] LABS: URINE HYALINE CAST 12 /lpf; URINE MUCUS RARE; URINE RBC 7 /hpf (0-3); URINE WBC 26 /hpf (3-5)
--- NOTE | 2017-07-05 01:41 | PDOC ---
*Physical Exam - Vital Signs Last Vital Signs Temp Pulse Resp BP Pulse Ox 98.6 F 106 H 16 134/93 100 07/04/17 21:33 07/04/17 21:33 07/04/17 21:33 07/04/17 21:33 07/04/17 22:52 ED Treatment Course - LABORATORY CBC & Chemistry Diagram: 07/04/17 22:30 07/04/17 23:30 - ADDITIONAL ORDERS Additional order review: Laboratory Results 07/05/17 07/04/17 07/04/17 00:32 23:30 22:34 Sodium 137 Potassium 4.6 D Chloride 95 L Carbon Dioxide 29 Anion Gap 13 BUN 44 H Creatinine 2.3 H Creat Clearance w eGFR 27.03 Random Glucose 133 H D Lactic Acid 3.1 H* Calcium 8.6 Total Bilirubin 1.8 H D AST 22 D ALT 18 Alkaline Phosphatase 96 D Creatine Kinase 86 Troponin I 0.11 H D B-Natriuretic Peptide 27403.26 H Total Protein 7.1 Albumin 3.6 Urine Color Yellow Urine Appearance Slcloudy Urine pH 5.0 Urine Protein 1+ H Urine Glucose (UA) Negative Urine Ketones Negative Urine Blood 2+ H Urine Nitrite Negative Urine Bilirubin Negative Urine Urobilinogen 4.0 e.u/dl Urine RBC 7 Urine WBC 26 Hyaline Casts 12 Urine Mucus Rare 07/04/17 22:30 RBC 4.09 MCV 89.4 MCHC 32.9 RDW 16.0 H MPV 10.4 Neutrophils % 70.0 Lymphocytes % 17.0 Monocytes % 10.4 H Eosinophils % 1.3 Basophils % 1.3 - Medications Given in the ED: ED Medications Discontinued Medications Generic Name Dose Route Start Last Admin Trade Name Isidoro PRN Reason Stop Dose Admin Furosemide 40 mg 07/04/17 22:06 07/04/17 23:36 Lasix Injection - IVPB 07/04/17 22:07 40 mg ONCE ONE Administration Azithromycin 500 mg/ Dextrose 250 mls @ 250 mls/hr 07/04/17 23:35 07/05/17 00: 33 IVPB 07/05/17 00:34 250 mls/hr ONCE ONE Administration Medical Decision Making - Medical Decision Making 07/05/17 01:39 Patient seen and evaluated with the nurse practitioner. I agree with the overall evaluation, assessment, and management with the following summary of visit: 87-year-old male with multiple medical problems and recent admission for systolic heart failure presents now with generalized weakness Vitals as noted Workup revealed baseline renal insufficiency, elevated lactate, elevated troponin and BNP Positive UTI on urinalysis Treated with antibiotics, admitted for further management. *DC/Admit/Observation/Transfer Diagnosis at time of Disposition: Renal insufficiency Urinary tract infection Qualifiers: Urinary tract infection type: acute cystitis Hematuria presence: without hematuria Qualified Code(s): N30.00 - Acute cystitis without hematuria
--- NOTE | 2017-07-05 03:11 | HP ---
CHIEF COMPLAINT: SOB PCP: Dr. Casey HISTORY OF PRESENT ILLNESS: This is an 87 year old male recently discharged from this facility s/p CHF exacerbation who presented to the ED with SOB, dizziness, poor po intake, weakness, general malaise. He feels that he is on too many medications. He reports that he does not sleep well at night but denies this being due to orthopnea and then dozes frequently during the day. He states that he went to see his PCP today who reduced his medications but felt too unwell to stay at home. ER course was notable for: (1) BNP>18272 (2) troponin neg (3) lactic acid 3.1 Recent Travel: pt denies PAST MEDICAL HISTORY: HTN HLD CAD s/p CABG 6 years ago nSTEMI s/p stent 05/30 CKD BPH COPD PAST SURGICAL HISTORY: CABG 6y ago stent and AICD placed 05/2017 Social History: , lives alone, independent in ADLs. 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 Smokin pack-year history, quit age 30 after an episode of hemoptysis Alcohol: None Allergies amoxicillin trihydrate [From Augmentin] Adverse Reaction (Mild, Verified 21:33) gi upset atorvastatin calcium [From Lipitor] Adverse Reaction (Mild, Verified 07/04/17 21 :33) gi upset potassium clavulanate [From Augmentin] Adverse Reaction (Mild, Verified 21:33) gi upset HOME MEDICATIONS: 3 Medication Instructions Recorded Carvedilol 6.25 mg PO BID 05/24/17 Simvastatin 20 mg PO HS 06/10/17 Bacitracin - [Bacitracin Topical 1 applic TP BID #1 tube 06/21/17 Ointment -] Clopidogrel Bisulfate [Plavix -] 75 mg PO AM #30 tab 06/21/17 Ciprofloxacin 0.3% Eye Drops 4 drop NR BID 06/27/17 [Ciloxan 0.3% Eye Drops -] Potassium Chloride 20 meq PO DAILY 06/27/17 Aspirin [Ecotrin] 81 mg PO DAILY #30 tablet. 06/30/17 Spironolactone [Aldactone -] 12.5 mg PO BID #60 tablet 06/30/17 Tamsulosin HCl [Flomax -] 0.4 mg PO HS #30 cap 06/30/17 Torsemide [Demadex -] 20 mg PO DAILY #30 tablet 06/30/17 Trazodone HCl [Desyrel -] 25 mg PO HS tablet 06/30/17 REVIEW OF SYSTEMS CONSTITUTIONAL: generalized weakness, malaise, loss of appetite Absent: fever, chills, diaphoresis, weight change HEENT: Absent: rhinorrhea, nasal congestion, throat pain, throat swelling, difficulty swallowing, mouth swelling, ear pain, eye pain, visual changes CARDIOVASCULAR: lightheadedness Absent: chest pain, syncope, palpitations, irregular heart rate, peripheral edema RESPIRATORY: shortness of breath, dyspnea with exertion Absent: cough, orthopnea, wheezing, stridor, hemoptysis GASTROINTESTINAL: Absent: abdominal pain, abdominal distension, nausea, vomiting, diarrhea, constipation, melena, hematochezia GENITOURINARY: Absent: dysuria, frequency, urgency, hesitancy, hematuria, flank pain, genital pain MUSCULOSKELETAL: Absent: myalgia, arthralgia, joint swelling, back pain, neck pain SKIN: Absent: rash, itching, pallor HEMATOLOGIC/IMMUNOLOGIC: Absent: easy bleeding, easy bruising, lymphadenopathy, frequent infections ENDOCRINE: Absent: unexplained weight gain, unexplained weight loss, heat intolerance, cold intolerance NEUROLOGIC: Absent: headache, focal weakness or paresthesias, dizziness, unsteady gait, seizure, mental status changes, bladder or bowel incontinence PSYCHIATRIC: Absent: anxiety, depression, suicidal or homicidal ideation, hallucinations. PHYSICAL EXAMINATION Vital Signs - 24 hr 3 07/04/17 07/04/17 21:33 22:52 Temperature 98.6 F Pulse Rate 106 H Respiratory 16 Rate Blood Pressure 134/93 O2 Sat by Pulse 100 100 Oximetry (%) GENERAL: Awake, alert, and fully oriented, in no acute distress. HEAD: Normal with no signs of trauma. EYES: Pupils equal, round and reactive to light, extraocular movements intact, sclera anicteric, conjunctiva clear. No lid lag. EARS, NOSE, THROAT: Ears normal, nares patent, oropharynx clear without exudates. Moist mucous membranes. NECK: Normal range of motion, supple without lymphadenopathy, JVD, or masses. LUNGS: Breath sounds equal, clear to auscultation bilaterally. No wheezes, and no crackles. No accessory muscle use. HEART: Regular rate and rhythm, normal S1 and S2 without rub or gallop. + 1/6 DUARTE, loudest 5th ICS LSB ABDOMEN: Soft, nontender, not distended, normoactive bowel sounds, no guarding, no rebound, no masses. No hepatomegaly or splenomegaly. MUSCULOSKELETAL: Normal range of motion at all joints. No bony deformities or tenderness. No CVA tenderness. UPPER EXTREMITIES: 2+ pulses, warm, well-perfused. No cyanosis. No clubbing. No peripheral edema. LOWER EXTREMITIES: 2+ pulses, warm, well-perfused. No calf tenderness. 1+ edema bilat LE NEUROLOGICAL: Cranial nerves II-XII intact. Normal speech. Normal gait. PSYCHIATRIC: Cooperative. Good eye contact. Appropriate mood and affect. SKIN: Warm, dry, normal turgor, no rashes or lesions noted, normal capillary refill. Laboratory Results - last 24 hr 3 07/04/17 07/04/17 07/04/17 22:30 22:34 23:30 WBC 7.0 D RBC 4.09 Hgb 12.0 D Hct 36.5 MCV 89.4 MCH 29.4 MCHC 32.9 RDW 16.0 H Plt Count 153 D MPV 10.4 Neutrophils % 70.0 Lymphocytes % 17.0 Monocytes % 10.4 H Eosinophils % 1.3 Basophils % 1.3 Sodium 137 Potassium 4.6 D Chloride 95 L Carbon Dioxide 29 Anion Gap 13 BUN 44 H Creatinine 2.3 H Creat Clearance w eGFR 27.03 Random Glucose 133 H D Lactic Acid 3.1 H* Calcium 8.6 Total Bilirubin 1.8 H D AST 22 D ALT 18 Alkaline Phosphatase 96 D Creatine Kinase 86 Troponin I 0.11 H D B-Natriuretic Peptide 93363.26 H Total Protein 7.1 Albumin 3.6 Urine Color Urine Appearance Urine pH Urine Protein Urine Glucose (UA) Urine Ketones Urine Blood Urine Nitrite Urine Bilirubin Urine Urobilinogen Urine RBC Urine WBC Hyaline Casts Urine Mucus 3 Urine Color Yellow 07/05/17 00:32 Urine Appearance Slcloudy 07/05/17 00:32 Urine pH 5.0 (5.0-8.0) 07/05/17 00:32 Urine Protein 1+ (NEGATIVE) H 07/05/17 00:32 Urine Glucose (UA) Negative (NEGATIVE) 07/05/17 00:32 Urine Ketones Negative (NEGATIVE) 07/05/17 00:32 Urine Blood 2+ (NEGATIVE) H 07/05/17 00:32 Urine Nitrite Negative (NEGATIVE) 07/05/17 00:32 Urine Bilirubin Negative (NEGATIVE) 07/05/17 00:32 Urine RBC 7 /hpf (0-3) 07/05/17 00:32 Urine WBC 26 /hpf (3-5) 07/05/17 00:32 Urine Mucus Rare 07/05/17 00:32 ECG sinus rhytm with occ PVC vent rate 99, QTC [address]/T changes Radiology Reports CXR report pending, noted with increased interstitial markings, enlarged heart ASSESSMENT/PLAN: 87yM with PMH HTN, HLD, sHF, CAD s/p CABG, nSTEMI s/p stent, COPD, CKD, BPH with multiple hospitalizations in past several months who presents to the ED with SOB, dizziness, general malaise. He is being admitted for acute CHF Cardio: CHF, systolic with acute exacerbation - lasix 40mg iv in ED, cont same daily - cardiology consult for medication management. Pt reprots taking ALL of his prescribed medications since dc - echo last on 06/10 with Severely reduced LV function - cont spironolactone, dc torsemide CAD - taken off imdur on last hospitalization due to headache - cont ASA, plavix HTN - bp well controlled, cont home meds Lactic Acidosis - unclear etiology - pt does not appear to be septic - ? type B lactic acidosis - repeat sent Resp: COPD - no s/s COPD exacerbation. monitor and initiate albuterol if wheezing - given azithromycin and ceftriaxone in ED, will hold off further ABT unless febrile or increased cough with sputum production Renal: CKD - Cr 2.3, slightly above baseline. cont to monitor BPH - cont flomax in PM Anxiety/depression/insomnia - cont trazodone 25mg HS - consider psychiatry consult DVT PPX - heparin 5000u BID FEN - defer IVF, pt appears overloaded - BMP in am - low sodium diet Dispo: pt currently requires inpatient management of his emergent condition. Visit type - Emergency Visit Emergency Visit: Yes ED Registration Date: 07/04/17 Care time: The patient presented to the Emergency Department on the above date and was hospitalized for further evaluation of their emergent condition. - New Patient This patient is new to me today: Yes Date on this admission: 07/05/17 - Critical Care Critical Care patient: No
[2017-07-05 03:31] LABS: TROPONIN I 0.13 ng/ml (0.00-0.05)
[2017-07-05 04:41] VITALS: BMI 27.1
[2017-07-05] MEDS: CLOPIDOGREL BISULFATE 75 MG TABLET (FP) PO SCH (06:17)
[2017-07-05] MEDS ORDERED: PT OWN MED DRAWER 7, Y5N ONE ×2 (09:00→22:20)
[2017-07-05 09:03] LABS: BASOPHIL 1.3 % (0-2.0); EOSINOPHIL 0.5 % (0-4.5); MCH 28.8 pg (25.7-33.7); MCHC 32.3 g/dl (32.0-35.9); MEAN CELL VOLUME 89.1 fl (80-96); PLATELET COUNT 147 K/MM3 (134-434); RDW 16.1 % (11.9-15.9); WHITE BLOOD COUNT 7.1 K/mm3 (4.0-10.0)
--- NOTE | 2017-07-05 09:12 | EKG ---
Test Reason : Blood Pressure : / mmHG Vent. Rate : 099 BPM Atrial Rate : 099 BPM P-R Int : 170 ms QRS Dur : 136 ms QT Int : 406 ms P-R-T Axes : 049 -46 129 degrees QTc Int : 521 ms SINUS RHYTHM WITH OCCASIONAL PREMATURE VENTRICULAR COMPLEXES AND FUSION COMPLEXES POSSIBLE LEFT ATRIAL ENLARGEMENT LEFT AXIS DEVIATION LEFT BUNDLE BRANCH BLOCK ABNORMAL ECG WHEN COMPARED WITH ECG OF 27-JUN-2017 12:58, FUSION COMPLEXES ARE NOW PRESENT Confirmed by MALINDA OWENS MD ([id number]) on 07/05/2017 9:11:50 AM Referred By: Confirmed By:MALINDA OWENS MD
[2017-07-05] MEDS: SPIRONOLACTONE 25 MG TABLET (FP) PO SCH ×2 (09:24→22:29)
[2017-07-05] MEDS: POTASSIUM CHLORIDE ORAL LIQUID 20 MEQ/15 ML PO SCH (09:24)
[2017-07-05] MEDS: ASPIRIN COATED 81 MG TABLET.EC PO SCH (09:24)
[2017-07-05 09:31] LABS: ANION GAP 11 (8-16); CALCIUM 8.8 mg/dL (8.5-10.1); CO2 31 mmol/L (21-32); GLUCOSE,RANDOM 130 mg/dL (74-106); MAGNESIUM 2.6 mg/dL (1.8-2.4)
[2017-07-05 09:38] LABS: CPK 59 IU/L (39-308); CREATININE 2.3 mg/dL (0.7-1.3); PHOSPHOROUS 3.4 mg/dL (2.5-4.9); TROPONIN I 0.14 ng/ml (0.00-0.05)
[2017-07-05] MEDS ORDERED: CARVEDILOL 6.25 MG TABLET (FP) PO SCH (10:00)
[2017-07-05] MEDS ORDERED: HEPARIN NA (PORCINE) 5,000 UNITS/ML 1ML VIAL SQ SCH (10:00)
[2017-07-05] MEDS ORDERED: FUROSEMIDE 40 MG/4 ML INJECTABLE VIAL IVPUSH ONE (10:00)
[2017-07-05] MEDS ORDERED: FUROSEMIDE 40 MG/4 ML INJECTABLE VIAL IVPUSH SCH ×2 (10:00→16:00)
--- NOTE | 2017-07-05 10:44 | CON.CARD ---
Consult - Past Medical History AUDIT ASSOCIATE: Yes: Vertigo Cardio/Vascular: Yes: CAD, CHF, HTN, Hyperlipdemia Pulmonary: Yes: COPD Renal/: Yes: Renal Inusuff - Past Surgical History Past Surgical History: Yes: CABG - Alcohol/Substance Use Hx Alcohol Use: No - Smoking History Smoking history: Former smoker Have you smoked in the past 12 months: No Aproximately how many cigarettes per day: 0 If you are a former smoker, when did you quit?: 35 years ago <Kelvin Campuzano - Last Filed: 07/05/17 10:44> - History of Present Illness History of Present Illness: Cardiology Consultation Requested by: Dr. Breana Hidalgo Chief Complaint: Shortness of breath Lightheadedness 87 year old gentleman with history of CAD, s/p CABG, recent history of NSTEMI associated with acute left ventricular failure, severe left ventricular systolic dysfunction, s/p PCI/stenting, s/p ICD for primary prophylaxis, COPD. History of hypercholesterolemia and CKD. Patient admitted with complaints of postural lightheadedness, weakness, increasing dyspnea with minimal exertion, and pedal edema. No history of chest pain or discomfort, no history of palpitations, presyncope or syncope. On questioning patient states that he is severely claustrophobic and feels extremely anxious. Past History: As mentioned above. Surgical history: S/p CABG Social history: Single, retired, previous history of 3 pack cigarette smoking, denies use of alcohol. Family history: Parents in their late 80s of natural causes. Had five brothers, one of them is , cause unknown. Other brothers apparently are healthy. One sister who is healthy. Allergies: amoxicillin trihydrate, atorvastatin calcium, potassium clavulanate Home Medication List Active Medications Generic Name Dose Route Start Last Admin Trade Name Freq PRN Reason Stop Dose Admin Aspirin 81 mg 07/05/17 10:00 07/05/17 09:24 Ecotrin - PO 81 mg DAILY JEREMÍAS Administration Atorvastatin Calcium 10 mg 07/05/17 22:00 Lipitor - PO HS JEREMÍAS Carvedilol 6.25 mg 07/05/17 10:00 07/05/17 09:24 Coreg - PO 6.25 mg BID JEREMÍAS Administration Clopidogrel Bisulfate 75 mg 07/05/17 07:00 07/05/17 06:17 Plavix - PO Not Given AM [facility] Furosemide 60 mg 07/05/17 16:00 Lasix Injection - IVPUSH DAILY@1600 [facility] Furosemide 40 mg 07/06/17 06:00 Lasix Injection - IVPUSH DAILY@0600 [facility] Heparin Sodium (Porcine) 5,000 unit 07/05/17 14:00 Heparin - SQ TID [facility] Potassium Chloride 20 meq 07/05/17 10:00 07/05/17 09:24 Potassium Chloride Oral Liquid PO 20 meq DAILY JEREMÍAS Administration Spironolactone 12.5 mg 07/05/17 10:00 07/05/17 09:24 Aldactone - PO 12.5 mg BID JEREMÍAS Administration Tamsulosin HCl 0.4 mg 07/05/17 08:30 Flomax - PO DAILY@0830 [facility] Trazodone HCl 25 mg 07/05/17 22:00 Desyrel - PO HS JEREMÍAS Review of Systems: Constitutional: No history of chills, fever or night sweats. History of unintentional weight loss. HEENT: No history of headaches, diplopia, blurred vision. No history of epistaxis or hoarseness. No tinnitus. Cardiovascular: See history of present illness. Respiratory: Shortness of breath with minimal exertion, no history of cough, expectoration or hemoptysis. GI: No history of nausea, vomiting, melena, or hematemesis. No history of abdominal pain or discomfort, no change in bowel habits reported. See history of present illness. AUDIT ASSOCIATE: See history of present illness, history of syncope. Endocrine: No history of polyuria or polydipsia. No history of intolerance to cold or warm weather. Musculoskeletal: No arthralgias or history of myalgia. : No history of frequency or hematuria. HEME: No history of bleeding, anemia or ecchymosis. O: 87 year old male was in no acute distress, no pallor, cyanosis, clubbing, or jaundice. Last Vital Signs Temp Pulse Resp BP Pulse Ox 97.6 F 95 H 20 137/84 99 07/05/17 06:00 07/05/17 06:00 07/05/17 06:00 07/05/17 06:00 07/05/17 04:30 Intake & Output 07/02/17 07/03/17 07/04/17 07/05/17 23:59 23:59 23:59 23:59 Intake Total 10 Balance 10 Weight 56.699 kg 78.698 kg Neck: Supple, no JVD, positive HJR, pulsatile neck veins, carotids were equal and upstrokes were normal, no thyromegaly appreciated. Heart: PMI was in the 5th intercostal space, no heaves or thrills, S1 and S2 were normal. Ejection systolic murmur grade II/ 2nd right intercostal space, ending in midsystole. Grade II/ apical systolic murmur. S3 gallop at the apex. Lungs: Crepidations at the right base. Abdomen: Soft, nontender, no hepatosplenomegaly appreciated, and no palpable masses were felt. Extremities: No calf tenderness. 2+ dependent edema. EC07/05/17 Sinus rhythm with occasional premature ventricular complexes and fusion complexes. Possible left atrial enlargement. Left axis deviation. Left bundle branch block. Lab Data: Laboratory Results - last 24 hr 07/04/17 07/04/17 07/04/17 22:30 22:34 23:30 WBC 7.0 D RBC 4.09 Hgb 12.0 D Hct 36.5 MCV 89.4 MCH 29.4 MCHC 32.9 RDW 16.0 H Plt Count 153 D MPV 10.4 Neutrophils % 70.0 Lymphocytes % 17.0 Monocytes % 10.4 H Eosinophils % 1.3 Basophils % 1.3 Sodium 137 Potassium 4.6 D Chloride 95 L Carbon Dioxide 29 Anion Gap 13 BUN 44 H Creatinine 2.3 H Creat Clearance w eGFR 27.03 Random Glucose 133 H D Lactic Acid 3.1 H* Calcium 8.6 Phosphorus Magnesium Total Bilirubin 1.8 H D AST 22 D ALT 18 Alkaline Phosphatase 96 D Creatine Kinase 86 Troponin I 0.11 H D B-Natriuretic Peptide 08985.26 H Total Protein 7.1 Albumin 3.6 Urine Color Urine Appearance Urine pH Ur Specific [place] Urine Protein Urine Glucose (UA) Urine Ketones Urine Blood Urine Nitrite Urine Bilirubin Urine Urobilinogen Urine RBC Urine WBC Hyaline Casts Urine Mucus 07/05/17 07/05/17 07/05/17 00:32 02:55 02:55 WBC RBC Hgb Hct MCV MCH MCHC RDW Plt Count MPV Neutrophils % Lymphocytes % Monocytes % Eosinophils % Basophils % Sodium Potassium Chloride Carbon Dioxide Anion Gap BUN Creatinine Creat Clearance w eGFR Random Glucose Lactic Acid 3.4 H* Calcium Phosphorus Magnesium Total Bilirubin AST ALT Alkaline Phosphatase Creatine Kinase 73 Troponin I 0.13 H B-Natriuretic Peptide Total Protein Albumin Urine Color Yellow Urine Appearance Slcloudy Urine pH 5.0 Ur Specific [place] 1.020 Urine Protein 1+ H Urine Glucose (UA) Negative Urine Ketones Negative Urine Blood 2+ H Urine Nitrite Negative Urine Bilirubin Negative Urine Urobilinogen 4.0 e.u/dl Urine RBC 7 Urine WBC 26 Hyaline Casts 12 Urine Mucus Rare 07/05/17 07/05/17 07/05/17 08:50 08:50 08:50 WBC 7.1 RBC 3.94 L Hgb 11.3 L Hct 35.1 L MCV 89.1 MCH 28.8 MCHC 32.3 RDW 16.1 H Plt Count 147 MPV 10.0 Neutrophils % 69.0 Lymphocytes % 18.2 Monocytes % 11.0 H Eosinophils % 0.5 Basophils % 1.3 Sodium 135 L Potassium 4.3 Chloride 93 L Carbon Dioxide 31 Anion Gap 11 BUN 45 H Creatinine 2.3 H Creat Clearance w eGFR Random Glucose 130 H Lactic Acid 2.3 H* Calcium 8.8 Phosphorus 3.4 Magnesium 2.6 H Total Bilirubin AST ALT Alkaline Phosphatase Creatine Kinase 59 Troponin I 0.14 H B-Natriuretic Peptide Total Protein Albumin Urine Color Urine Appearance Urine pH Ur Specific [place] Urine Protein Urine Glucose (UA) Urine Ketones Urine Blood Urine Nitrite Urine Bilirubin Urine Urobilinogen Urine RBC Urine WBC Hyaline Casts Urine Mucus A: 1. Congestive heart failure, NYHA Class in II 2. Coronary artery disease, s/p CABG, s/p NSTEMI, s/p PCI/stenting. 3. Severe left ventricular systolic dysfunction. 4. COPD 5. Lightheadedness, dizziness, etiology: a.) Combination of low output state and medication 6. Chronic kidney disease 7. S/p ICD for primary prophylaxis 8. Hypercholesterolemia 9. Poor compliance 10. Anxiety disorder, suspect depression. 11. History of claustrophobia. Recommendation: 1. Medicines should be given at varying intervals as patient generally experiences his symptoms when he receives several medications at one time. 2. Consider medication for anxiety disorder and patient will require evaluation for possible depression. 3. Daily weights 4. Follow up BMP. Prognosis: Guarded Thank you for your referral, Sincerely, Kelvin Campuzano MD. Attestation: Documentation prepared by Joann Blake, acting as registered medical transcriptionist for Kelvin Campuzano MD. <Joann Blake - Last Filed: 07/05/17 11:39> Home Medications <Kelvin Campuzano H - Last Filed: 07/05/17 10:44> <Joann Blake - Last Filed: 07/05/17 11:39> - Allergies Allergies/Adverse Reactions: Allergies Allergy/AdvReac Type Severity Reaction Status Date / Time amoxicillin trihydrate AdvReac Mild gi upset Verified 07/04/17 21:33 [From Augmentin] atorvastatin calcium AdvReac Mild gi upset Verified 07/04/17 21:33 [From Lipitor] potassium clavulanate AdvReac Mild gi upset Verified 07/04/17 21:33 [From Augmentin] - Home Medications Home Medications: Ambulatory Orders Carvedilol 6.25 mg PO BID 05/24/17 Simvastatin 20 mg PO HS 06/10/17 Bacitracin - [Bacitracin Topical Ointment -] 1 applic TP BID #1 tube 06/21/17 Clopidogrel Bisulfate [Plavix -] 75 mg PO AM #30 tab 06/21/17 Ciprofloxacin 0.3% Eye Drops [Ciloxan 0.3% Eye Drops -] 4 drop NR BID 06/27/17 Potassium Chloride 20 meq PO DAILY 06/27/17 Aspirin [Ecotrin] 81 mg PO DAILY #30 tablet. 06/30/17 Spironolactone [Aldactone -] 12.5 mg PO BID #60 tablet 06/30/17 Tamsulosin HCl [Flomax -] 0.4 mg PO HS #30 cap 06/30/17 Torsemide [Demadex -] 20 mg PO DAILY #30 tablet 06/30/17 Trazodone HCl [Desyrel -] 25 mg PO HS tablet 06/30/17 Vital Signs: Vital Signs Temperature 97.6 F 07/05/17 06:00 Pulse Rate 95 H 07/05/17 06:00 Respiratory Rate 20 07/05/17 06:00 Blood Pressure 137/84 07/05/17 06:00 O2 Sat by Pulse Oximetry (%) 99 07/05/17 04:30 - Other Data Labs, Other Data: CBC, BMP 07/05/17 08:50 07/05/17 08:50 Troponin, BNP 07/05/17 07/05/17 02:55 08:50 Troponin I 0.13 H 0.14 H Troponin, BNP 07/05/17 07/05/17 02:55 08:50 Troponin I 0.13 H 0.14 H <Kelvin Campuzano - Last Filed: 07/05/17 10:44> Vital Signs: Vital Signs Temperature 97.6 F 07/05/17 06:00 Pulse Rate 95 H 07/05/17 06:00 Respiratory Rate 20 07/05/17 06:00 Blood Pressure 137/84 07/05/17 06:00 O2 Sat by Pulse Oximetry (%) 99 07/05/17 04:30 - Other Data Labs, Other Data: CBC, BMP 07/05/17 08:50 07/05/17 08:50 Troponin, BNP 07/05/17 07/05/17 02:55 08:50 Troponin I 0.13 H 0.14 H Troponin, BNP 07/05/17 07/05/17 02:55 08:50 Troponin I 0.13 H 0.14 H <Joann Blake - Last Filed: 07/05/17 11:39>
[2017-07-05] MEDS ORDERED: LORazepam 0.5 MG TABLET PO PRN (11:35)
[2017-07-05] MEDS ORDERED: CITALOPRAM HYDROBROMIDE 10 MG TABLET (FP) PO SCH (11:45)
[2017-07-05] MEDS: TAMSULOSIN HCL 0.4 MG CAP.ER.24H (FP) PO SCH (12:18)
[2017-07-05 12:55] LABS: THYROID STIMULATING HORMONE 6.42 uIU/ml (0.358-3.74)
[2017-07-05] MEDS: HEPARIN NA (PORCINE) 5,000 UNITS/ML 1ML VIAL SQ SCH ×3 (14:32→22:36)
--- NOTE | 2017-07-05 14:44 | PN ---
Teaching Attending Note Name of Resident: Kelsy Red ATTENDING PHYSICIAN STATEMENT I saw and evaluated the patient. I reviewed the resident's note and discussed the case with the resident. I agree with the resident's findings and plan as documented. SUBJECTIVE: has SOB , feels tired and sick. anxious , clustrophobic OBJECTIVE: NAD , AAOX3 . HEENT: NC, AT . MMM CV: RRR, no MRG. Lungs: CTAB Ext: 2+ pitting edema on both legs from knee down. no erythema . well healing scar on medial calves . DP 2+ ASSESSMENT AND PLAN: 87 y/o man with h/o CAD, S/p CABG, recent stenting, AICD placement , HTN, HL, and other medical problems who presented with worsening SOB and was found to have acute CHF exacerbation 1- Acute on chronic Systolic and diastolic CHF: due to non compliance . - received lasix this am. - switch to demadex. Cont spironolactone - monitor I&O and weight - cont coreg and decrease to 3.125 in am and 6.25 in evening 2- HTN: cont coreg . now off imdur 3- H/O CAD : cont BB and ASa/Plavix 4- Anxiety , clustrophobia: start buspar and while here xanax PRN. need to treat this condition as it is affecting his medical condition dispo : HLOC DVT px
[2017-07-05] MEDS ORDERED: FUROSEMIDE 40 MG/4 ML INJECTABLE VIAL ONE (15:46)
--- NOTE | 2017-07-05 16:03 | PN ---
Physical Exam: SUBJECTIVE: Patient seen and examined. Says he does not feel good at all. He is complaining of SOB and weakness. He says he has anxiety and that is not making anything better. He wants to cut his medications because he thinks it is the cause of his symptoms. OBJECTIVE: Vital Signs Period Temp Pulse Resp BP Sys/العلي Pulse Ox Last 24 Hr 97.3 F-97.7 F 64-97 18-22 103-147/56-92 97-99 GENERAL: The patient is awake, alert, and fully oriented, in no acute distress. HEAD: Normal with no signs of trauma. NECK: supple. LUNGS: crackles throughout, no wheezing HEART: + JVD, Regular rate and rhythm, S1, S2 without murmur, rub or gallop. ABDOMEN: Soft, nontender, nondistended, normoactive bowel sounds, no guarding, no rebound, no hepatosplenomegaly, no masses. EXTREMITIES: 2+ pulses, B/L LE 2+ edema PSYCH: Normal mood, normal affect. Laboratory Results - last 24 hr 07/05/17 07/05/17 07/05/17 02:55 02:55 08:50 WBC 7.1 RBC 3.94 L Hgb 11.3 L Hct 35.1 L MCV 89.1 MCH 28.8 MCHC 32.3 RDW 16.1 H Plt Count 147 MPV 10.0 Neutrophils % 69.0 Lymphocytes % 18.2 Monocytes % 11.0 H Eosinophils % 0.5 Basophils % 1.3 Sodium Potassium Chloride Carbon Dioxide Anion Gap BUN Creatinine Random Glucose Lactic Acid 3.4 H* Calcium Phosphorus Magnesium Creatine Kinase 73 Troponin I 0.13 H 07/05/17 07/05/17 08:50 08:50 WBC RBC Hgb Hct MCV MCH MCHC RDW Plt Count MPV Neutrophils % Lymphocytes % Monocytes % Eosinophils % Basophils % Sodium 135 L Potassium 4.3 Chloride 93 L Carbon Dioxide 31 Anion Gap 11 BUN 45 H Creatinine 2.3 H Random Glucose 130 H Lactic Acid 2.3 H* Calcium 8.8 Phosphorus 3.4 Magnesium 2.6 H Creatine Kinase 59 Troponin I 0.14 H Active Medications Generic Name Dose Route Start Last Admin Trade Name Freq PRN Reason Stop Dose Admin Acetaminophen 650 mg 07/05/17 14:17 Tylenol - PO Q6H PRN FEVER OR PAIN Alprazolam 0.25 mg 07/05/17 22:00 Xanax - PO BID [facility] Aspirin 81 mg 07/05/17 10:00 07/05/17 09:24 Ecotrin - PO 81 mg DAILY [facility] Administration Atorvastatin Calcium 10 mg 07/05/17 22:00 Lipitor - PO HS [facility] Buspirone HCl 10 mg 07/05/17 22:00 Buspar - PO BID [facility] Carvedilol 3.125 mg 07/06/17 07:00 Coreg - PO DAILY@0700 [facility] Carvedilol 6.25 mg 07/05/17 22:00 Coreg - PO DAILY@2200 [facility] Clopidogrel Bisulfate 75 mg 07/05/17 07:00 07/05/17 06:17 Plavix - PO Not Given AM [facility] Heparin Sodium (Porcine) 5,000 unit 07/05/17 14:00 07/05/17 14:32 Heparin - SQ Not Given TID [facility] Potassium Chloride 20 meq 07/05/17 10:00 07/05/17 09:24 Potassium Chloride Oral Liquid PO 20 meq DAILY [facility] Administration Spironolactone 12.5 mg 07/05/17 10:00 07/05/17 09:24 Aldactone - PO 12.5 mg BID [facility] Administration Tamsulosin HCl 0.4 mg 07/05/17 08:30 07/05/17 12:18 Flomax - PO Not Given DAILY@0830 [facility] Torsemide 40 mg 07/06/17 10:00 Demadex - PO DAILY [facility] Trazodone HCl 25 mg 07/05/17 22:00 Desyrel - PO [facility] ASSESSMENT/PLAN: 87M with h/o CAD, S/p CABG, recent stenting, AICD placement , HTN, HLD , presents to the hospital with acute on chronic left sided systolic heart failure with SOB. #Acute on chronic CHF left sided systolic exacerbation: (due to noncompliance) - strict ins and outs, daily weights -BUN/Creatinine at baseline -Received Lasix but now stopped -Adjusted Coreg to 3.125 in am and 6.25 in evening -Start toresemide 40 -continue spironolactone #Anxiety/Claustorphobia -started Buspar 10mg BID - Xanax .25prn BID #CAD: see above - Atorvastatin 10mg -Aspirin 81mg -Plavix 75mg #HTN: -Continue Coreg #CKD: Creatinine at baseline will continue to trend and monitor #Anxiety/Insomnia -Continue Trazodone #BPH: restart home dose of flomax at .4mg in evenings #FEN: Not on IV Fluids sodium controlled diet #PPx: Heparin SQ 5000U no GI PPx indicated Visit type - Emergency Visit Emergency Visit: Yes ED Registration Date: 07/05/17 Care time: The patient presented to the Emergency Department on the above date and was hospitalized for further evaluation of their emergent condition. - New Patient This patient is new to me today: Yes Date on this admission: 07/05/17 - Critical Care Critical Care patient: No
--- NOTE | 2017-07-05 16:31 | PN ---
Progress Note (short form) - Note Progress Note: PULMONARY CONSULTATION DICTATED 07/05/17 IMP ACUTE ON CHRONIC CHF SECONDARY TO NON-COMPLIANCE ASHD S/P CABG,STENT ICD S/P NSTEMI CKD COPD HTN HLD PLAN DIURETICS O2 DAILY WTS MONITOR LYTES,RENAL FUNCTION F/U CHEST X-RAY DR ANGELA Problem List - Problems (1) Acute exacerbation of CHF (congestive heart failure) Code(s): I50.9 - HEART FAILURE, UNSPECIFIED Qualifiers: Congestive heart failure type: systolic Qualified Code(s): I50.23 - Acute on chronic systolic (congestive) heart failure (2) Orthopnea Code(s): R06.01 - ORTHOPNEA (3) SOB (shortness of breath) Code(s): R06.02 - SHORTNESS OF BREATH (4) CAD (coronary artery disease) Code(s): I25.10 - ATHSCL HEART DISEASE OF [place] CORONARY ARTERY W/O ANG PCTRS (5) Chronic kidney disease (CKD) stage G3a/A2, moderately decreased glomerular filtration rate (GFR) between 45-59 mL/min/1.73 square meter and albuminuria creatinine ratio between 30-299 mg/g Code(s): N18.3 - CHRONIC KIDNEY DISEASE, STAGE 3 (MODERATE) (6) Weakness Code(s): R53.1 - WEAKNESS (7) Hypertension Code(s): I10 - ESSENTIAL (PRIMARY) HYPERTENSION
[2017-07-05 17:34] LABS: TROPONIN I 0.12 ng/ml (0.00-0.05)
[2017-07-05] MEDS ORDERED: busPIRone HCL 5 MG TABLET PO SCH (22:00)
[2017-07-05] MEDS: ATORVASTATIN CA 10 MG TABLET (FP) PO SCH (22:29)
[2017-07-05] MEDS: traZODone HCL 50 MG TABLET (FP) PO SCH (22:29)
[2017-07-05] MEDS: ALPRAZolam 0.25 MG TABLET PO SCH (22:29)
[2017-07-05] MEDS: CARVEDILOL 6.25 MG TABLET (FP) PO SCH (22:29)
[2017-07-05] MEDS: busPIRone HCL 10 MG TABLET (FP) PO SCH (22:30)
[2017-07-06] MEDS ORDERED: FUROSEMIDE 40 MG/4 ML INJECTABLE VIAL IVPUSH SCH (06:00)
--- NOTE | 2017-07-06 06:17 | CONS ---
DATE OF CONSULTATION: 07/05/2017 REFERRING PHYSICIAN: HISTORY: The patient is an 87-year-old white male known to me from previous hospitalization with past medical history of ASHD status post CABG, status post recent nonSTEMI with acute left ventricular failure, severe LV dysfunction status post stenting, status post ICD, COPD, hypercholesterolemia, chronic kidney disease, noncompliance with medication recently discharged from [facility] and readmitted on July 05 secondary to lightheadedness, weakness, and shortness of breath with minimal exertion and pedal edema. The patient denied any complaint of chest pain, nausea, vomiting, or diaphoresis. Denied any hemoptysis. The patient was admitted with the above. On admission, he was felt to have the acute decompensated CHF due to noncompliance. He was placed on Lasix with good clinical response. The patient has a history of tobacco use. Quit years ago. There is no history of occupational exposure to chemicals or fumes. There is no history of recent travel. There is no history of DVT or PE in the past. PAST MEDICAL HISTORY: Again, includes ASHD status post CABG, status post recent stents, status post nonST NC, severe LV dysfunction, hypertension, hyperlipidemia, chronic kidney disease. REVIEW OF SYSTEMS: Positive orthopnea. Positive dyspnea. Positive weakness. No chest pain, no palpitations, no abdominal pain. Positive lower extremity edema. MEDICATIONS: Include Flomax, Tylenol, heparin subcutaneous, Desyrel, BuSpar, Xanax, Coreg, Lipitor, Demadex, Aldactone, Ecotrin, Plavix. PHYSICAL EXAMINATION: General: The patient is an elderly white male well-developed, awake and alert currently in no acute distress. Vital Signs: He is currently afebrile. Blood pressure is 103/56, respiratory rate 18, O2 saturation 97% on room air. HEENT: Normocephalic and atraumatic. Neck: Supple. Heart: Regular S1, S2. Chest: Bilateral crackles. Abdomen: Soft. Bowel sounds are positive. Extremities: Bilateral extremity edema. LABORATORY DATA: BUN 45, creatinine 2.3, lactate 2.3. WBC 7.1, hemoglobin 11.3, hematocrit 35.1 with a platelet count of 147,000. Chest x-ray: Mild pulmonary venous congestion. IMPRESSION: 1. Dyspnea with acute or chronic congestive heart failure secondary to noncompliance. 2. Arteriosclerotic heart disease status post coronary artery bypass graft status post stents status post non-ST elevation myocardial infarction. 3. Acute or chronic kidney disease. 4. Chronic obstructive pulmonary disease. 5. Hypertension. 6. Hyperlipidemia. 7. Benign prostatic hypertrophy. PLAN: Continue Lasix. Continue diuretics. Supplemental O2. Stressed compliance with medication. Daily weighs. Follow up chest x-ray. Inhaled bronchodilators. Lis [id number]
[2017-07-06] MEDS: CARVEDILOL 3.125 MG TABLET (FP) PO SCH (07:04)
[2017-07-06] MEDS: HEPARIN NA (PORCINE) 5,000 UNITS/ML 1ML VIAL SQ SCH ×3 (07:05→21:19)
[2017-07-06] MEDS: CLOPIDOGREL BISULFATE 75 MG TABLET (FP) PO SCH (07:05)
[2017-07-06 07:17] LABS: ANION GAP 8 (8-16); CALCIUM 8.3 mg/dL (8.5-10.1); CO2 30 mmol/L (21-32); CREATININE 2.4 mg/dL (0.7-1.3); GLUCOSE,RANDOM 110 mg/dL (74-106); MAGNESIUM 2.5 mg/dL (1.8-2.4); PHOSPHOROUS 3.5 mg/dL (2.5-4.9)
[2017-07-06] MEDS: TAMSULOSIN HCL 0.4 MG CAP.ER.24H (FP) PO SCH (10:04)
[2017-07-06] MEDS: busPIRone HCL 10 MG TABLET (FP) PO SCH ×2 (10:08→21:18)
[2017-07-06] MEDS: POTASSIUM CHLORIDE ORAL LIQUID 20 MEQ/15 ML PO SCH (10:09)
[2017-07-06] MEDS: ASPIRIN COATED 81 MG TABLET.EC PO SCH (10:09)
[2017-07-06] MEDS: ALPRAZolam 0.25 MG TABLET PO SCH ×2 (10:09→21:17)
--- NOTE | 2017-07-06 11:00 | PN ---
Progress Note (short form) - Note Progress Note: Subjective: no fever or chills. "Feels like a new man today ". no SOB , no anxiety , no CO rp SOB Objective: Vital Signs: Last Vital Signs Temp Pulse Resp BP Pulse Ox 98.9 F 68 20 92/49 97 07/06/17 06:00 07/06/17 06:00 07/06/17 06:00 07/06/17 06:00 07/05/17 22:00 Laboratory Results - last 24 hr 07/04/17 07/05/17 07/05/17 23:30 16:20 16:20 Sodium 137 Potassium 4.6 D Chloride 95 L Carbon Dioxide 29 Anion Gap 13 BUN 44 H Creatinine 2.3 H Creat Clearance w eGFR 27.03 Random Glucose 133 H D Lactic Acid 2.9 H* Calcium 8.6 Phosphorus Magnesium Total Bilirubin 1.8 H D AST 22 D ALT 18 Alkaline Phosphatase 96 D Creatine Kinase 86 81 Troponin I 0.11 H D 0.12 H B-Natriuretic Peptide 49410.26 H Total Protein 7.1 Albumin 3.6 TSH 6.42 H 07/06/17 07/06/17 06:15 06:15 Sodium 135 L Potassium 4.1 Chloride 97 L Carbon Dioxide 30 Anion Gap 8 BUN 50 H Creatinine 2.4 H Creat Clearance w eGFR Random Glucose 110 H Lactic Acid 1.5 Calcium 8.3 L Phosphorus 3.5 Magnesium 2.5 H Total Bilirubin AST ALT Alkaline Phosphatase Creatine Kinase Troponin I B-Natriuretic Peptide Total Protein Albumin TSH I&O: Intake & Output 07/03/17 07/04/17 07/05/17 07/06/17 23:59 23:59 23:59 23:59 Intake Total 1070 50 Balance 1070 50 Weight 125 lb 173 lb 8 oz 175 lb 6 oz Physical Exam: NAD , AAOX3 . HEENT: NC, AT . MMM CV: RRR, no MRG. Lungs: CTAB Ext: 2+ pitting edema on both legs from knee down. no erythema . well healing scar on medial calves . DP 2+ ASSESSMENT AND PLAN: 87 y/o man with h/o CAD, S/p CABG, recent stenting, AICD placement , HTN, HL, and other medical problems who presented with worsening SOB and was found to have acute CHF exacerbation 1- Acute on chronic Systolic and diastolic CHF: due to non compliance . - COnt demadex and spironolactone - monitor weight ( ? increased ) - Cont core.125 in am and 6.25 in evening 2- HTN: cont coreg . now off imdur 3- H/O CAD : cont BB and ASA/Plavix 4- CKD :Cr around base line , but climbing. Will monitor 5- Anxiety , clustrophobia: Cont buspar and while here xanax PRN. dispo : HLOC DVT px Visit type - Emergency Visit Emergency Visit: Yes ED Registration Date: 07/05/17 Care time: The patient presented to the Emergency Department on the above date and was hospitalized for further evaluation of their emergent condition. - New Patient This patient is new to me today: No - Critical Care Critical Care patient: No
[2017-07-06] MEDS: ACETAMINOPHEN 325 MG TABLET (FP) PO PRN ×2 (11:11→20:13)
[2017-07-06] MEDS: SPIRONOLACTONE 25 MG TABLET (FP) PO SCH ×2 (11:13→21:17)
[2017-07-06] MEDS: TORSEMIDE 20 MG TABLET (FP) PO SCH (11:13)
--- NOTE | 2017-07-06 12:53 | PN ---
Progress Note (short form) - Note Progress Note: PULMONARY Breathing better but does not want to take his flomax and lipitor because it makes him tired. Last Vital Signs Temp Pulse Resp BP Pulse Ox 98.9 F 68 20 92/49 97 07/06/17 06:00 07/06/17 06:00 07/06/17 06:00 07/06/17 06:00 07/05/17 22:00 Intake & Output 07/03/17 07/04/17 07/05/17 07/06/17 23:59 23:59 23:59 23:59 Intake Total 1070 50 Balance 1070 50 Weight 125 lb 173 lb 8 oz 175 lb 6 oz Gen: NAD in chair Heart: RRR Lung: decreased breath sounds at the bases Abd: soft,nontender Ext: + edema CBC, BMP 07/05/17 08:50 07/06/17 06:15 Active Medications Acetaminophen (Tylenol -) 650 mg PO Q6H PRN PRN Reason: FEVER OR PAIN Last Admin: 07/06/17 11:11 Dose: 650 mg Alprazolam (Xanax -) 0.25 mg PO BID [facility] Last Admin: 07/06/17 10:09 Dose: 0.25 mg Aspirin (Ecotrin -) 81 mg PO DAILY [facility] Last Admin: 07/06/17 10:09 Dose: 81 mg Atorvastatin Calcium (Lipitor -) 10 mg PO HS [facility] Last Admin: 07/05/17 22:29 Dose: Not Given Buspirone HCl (Buspar -) 10 mg PO BID [facility] Last Admin: 07/06/17 10:08 Dose: 10 mg Carvedilol (Coreg -) 3.125 mg PO DAILY@0700 [facility] Last Admin: 07/06/17 07:04 Dose: Not Given Carvedilol (Coreg -) 6.25 mg PO DAILY@2200 [facility] Last Admin: 07/05/17 22:29 Dose: 6.25 mg Clopidogrel Bisulfate (Plavix -) 75 mg PO AM [facility] Last Admin: 07/06/17 07:05 Dose: 75 mg Heparin Sodium (Porcine) (Heparin -) 5,000 unit SQ TID [facility] Last Admin: 07/06/17 07:05 Dose: Not Given Potassium Chloride (Potassium Chloride Oral Liquid) 20 meq PO DAILY [facility] Last Admin: 07/06/17 10:09 Dose: 20 meq Spironolactone (Aldactone -) 12.5 mg PO BID [facility] Last Admin: 07/06/17 11:13 Dose: Not Given Tamsulosin HCl (Flomax -) 0.4 mg PO DAILY@0830 [facility] Last Admin: 07/06/17 10:04 Dose: 0.4 mg Torsemide (Demadex -) 40 mg PO DAILY [facility] Last Admin: 07/06/17 11:13 Dose: Not Given Trazodone HCl (Desyrel -) 25 mg PO HS [facility] Last Admin: 07/05/17 22:29 Dose: 25 mg A/P Acute on Chronic Systolic Heart Failure CAD s/p CABG COPD HTN Hyperlipidemia Noncompliance - continue demadex, aldactone - monitor urine output, creatinine - daily weights, I/Os - O2 to keep SpO2 >90% - inhaled bronchodilators - DVT prophylaxis
[2017-07-06] MEDS ORDERED: PT OWN MED DRAWER 7, Y5N ONE (21:14)
[2017-07-06] MEDS: traZODone HCL 50 MG TABLET (FP) PO SCH (21:18)
[2017-07-06] MEDS: CARVEDILOL 6.25 MG TABLET (FP) PO SCH (21:19)
[2017-07-06] MEDS: ATORVASTATIN CA 10 MG TABLET (FP) PO SCH (21:19)
[2017-07-07] MEDS: HEPARIN NA (PORCINE) 5,000 UNITS/ML 1ML VIAL SQ SCH ×3 (06:00→22:23)
[2017-07-07] MEDS: CLOPIDOGREL BISULFATE 75 MG TABLET (FP) PO SCH (06:11)
[2017-07-07] MEDS: CARVEDILOL 3.125 MG TABLET (FP) PO SCH (06:11)
[2017-07-07 08:45] LABS: ANION GAP 10 (8-16); CALCIUM 8.4 mg/dL (8.5-10.1); CO2 28 mmol/L (21-32); CREATININE 2.7 mg/dL (0.7-1.3); GLUCOSE,RANDOM 118 mg/dL (74-106); MAGNESIUM 2.7 mg/dL (1.8-2.4)
[2017-07-07] MEDS: POTASSIUM CHLORIDE ORAL LIQUID 20 MEQ/15 ML PO SCH (10:33)
[2017-07-07] MEDS: TORSEMIDE 20 MG TABLET (FP) PO SCH ×3 (10:34→13:02)
[2017-07-07] MEDS: busPIRone HCL 10 MG TABLET (FP) PO SCH ×2 (10:34→22:21)
[2017-07-07] MEDS: TAMSULOSIN HCL 0.4 MG CAP.ER.24H (FP) PO SCH (10:34)
[2017-07-07] MEDS: ALPRAZolam 0.25 MG TABLET PO SCH ×2 (10:34→22:22)
[2017-07-07] MEDS: SPIRONOLACTONE 25 MG TABLET (FP) PO SCH ×4 (10:34→22:22)
[2017-07-07] MEDS: ASPIRIN COATED 81 MG TABLET.EC PO SCH (10:34)
--- NOTE | 2017-07-07 12:43 | PN ---
Progress Note (short form) - Note Progress Note: PULMONARY Feels weak and tired, breathing more labored today. Last Vital Signs Temp Pulse Resp BP Pulse Ox 97.8 F 67 20 98/62 97 07/07/17 10:00 07/07/17 10:00 07/07/17 10:00 07/07/17 10:00 07/06/17 20:25 Intake & Output 07/04/17 07/05/17 07/06/17 07/07/17 23:59 23:59 23:59 23:59 Intake Total 1070 210 Balance 1070 210 Weight 125 lb 173 lb 8 oz 175 lb 6 oz 178 lb Gen: NAD in chair Heart: RRR Lung: decreased breath sounds at the bases Abd: soft,nontender Ext: + edema CBC, BMP 07/05/17 08:50 07/07/17 07:00 Active Medications Acetaminophen (Tylenol -) 650 mg PO Q6H PRN PRN Reason: FEVER OR PAIN Last Admin: 07/06/17 20:13 Dose: 650 mg Alprazolam (Xanax -) 0.25 mg PO BID [facility] Last Admin: 07/07/17 10:34 Dose: 0.25 mg Aspirin (Ecotrin -) 81 mg PO DAILY [facility] Last Admin: 07/07/17 10:34 Dose: 81 mg Atorvastatin Calcium (Lipitor -) 10 mg PO HS [facility] Last Admin: 07/06/17 21:19 Dose: Not Given Buspirone HCl (Buspar -) 10 mg PO BID [facility] Last Admin: 07/07/17 10:34 Dose: 10 mg Carvedilol (Coreg -) 3.125 mg PO DAILY@0700 [facility] Last Admin: 07/07/17 06:11 Dose: 3.125 mg Carvedilol (Coreg -) 6.25 mg PO DAILY@2200 [facility] Last Admin: 07/06/17 21:19 Dose: 6.25 mg Clopidogrel Bisulfate (Plavix -) 75 mg PO AM [facility] Last Admin: 07/07/17 06:11 Dose: 75 mg Heparin Sodium (Porcine) (Heparin -) 5,000 unit SQ TID [facility] Last Admin: 07/07/17 06:00 Dose: Not Given Potassium Chloride (Potassium Chloride Oral Liquid) 20 meq PO DAILY [facility] Last Admin: 07/07/17 10:33 Dose: 20 meq Spironolactone (Aldactone -) 12.5 mg PO BID [facility] Last Admin: 07/07/17 10:42 Dose: Not Given Tamsulosin HCl (Flomax -) 0.4 mg PO DAILY@0830 [facility] Last Admin: 07/07/17 10:34 Dose: 0.4 mg Torsemide (Demadex -) 40 mg PO DAILY [facility] Last Admin: 07/07/17 10:43 Dose: Not Given Trazodone HCl (Desyrel -) 25 mg PO HS [facility] Last Admin: 07/06/17 21:18 Dose: 25 mg A/P Acute on Chronic Systolic Heart Failure CAD s/p CABG COPD HTN Hyperlipidemia Noncompliance - continue demadex, aldactone - monitor urine output, creatinine - daily weights, I/Os - cardiology f/u, may need inotropic support - O2 to keep SpO2 >90% - inhaled bronchodilators - DVT prophylaxis
--- NOTE | 2017-07-07 13:01 | PN ---
Progress Note (short form) - Note Progress Note: 87 year old male C/O SOB, and weakness occurred after eating lunch, accompanied by weakness.There has been progressive weight gain during this admission. No chest pains reported. Known case of CAD S/P CABG, recent NSTEMI complicated by LV failure, S/P PCI/ stenting.H/O CKD, severe LV systolic dysfunction, VT, S/P ICD. Patient did not receive diuretics. Active Medications Acetaminophen (Tylenol -) 650 mg PO Q6H PRN PRN Reason: FEVER OR PAIN Last Admin: 07/06/17 20:13 Dose: 650 mg Alprazolam (Xanax -) 0.25 mg PO BID [facility] Last Admin: 07/07/17 10:34 Dose: 0.25 mg Aspirin (Ecotrin -) 81 mg PO DAILY [facility] Last Admin: 07/07/17 10:34 Dose: 81 mg Atorvastatin Calcium (Lipitor -) 10 mg PO HS [facility] Last Admin: 07/06/17 21:19 Dose: Not Given Buspirone HCl (Buspar -) 10 mg PO BID [facility] Last Admin: 07/07/17 10:34 Dose: 10 mg Carvedilol (Coreg -) 3.125 mg PO DAILY@0700 [facility] Last Admin: 07/07/17 06:11 Dose: 3.125 mg Carvedilol (Coreg -) 6.25 mg PO DAILY@2200 [facility] Last Admin: 07/06/17 21:19 Dose: 6.25 mg Clopidogrel Bisulfate (Plavix -) 75 mg PO AM [facility] Last Admin: 07/07/17 06:11 Dose: 75 mg Heparin Sodium (Porcine) (Heparin -) 5,000 unit SQ TID [facility] Last Admin: 07/07/17 06:00 Dose: Not Given Potassium Chloride (Potassium Chloride Oral Liquid) 20 meq PO DAILY [facility] Last Admin: 07/07/17 10:33 Dose: 20 meq Spironolactone (Aldactone -) 12.5 mg PO BID [facility] Last Admin: 07/07/17 13:02 Dose: 12.5 mg Tamsulosin HCl (Flomax -) 0.4 mg PO DAILY@0830 [facility] Last Admin: 07/07/17 10:34 Dose: 0.4 mg Torsemide (Demadex -) 40 mg PO DAILY [facility] Last Admin: 07/07/17 13:02 Dose: 40 mg Trazodone HCl (Desyrel -) 25 mg PO HS [facility] Last Admin: 07/06/17 21:18 Dose: 25 mg 87 year old male is dyspneic, no pallor, cyanosis, clubbing or jaundice. Vital Signs - 8 hr 07/07/17 07/07/17 07/07/17 06:00 10:00 13:08 Temperature 98.6 F 97.8 F Pulse Rate 67 67 68 Respiratory 20 20 22 Rate Blood Pressure 111/53 98/62 104/73 Intake & Output 07/04/17 07/05/17 07/06/17 07/07/17 23:59 23:59 23:59 23:59 Intake Total 1070 210 Balance 1070 210 Weight 125 lb 173 lb 8 oz 175 lb 6 oz 178 lb NECK: Supple,+ve HJR, elevated JVD at 30 degrees, carotids equal, no bruits heard. HEART: PMI in the 5th ICS, distant heart sounds, DUARTE II/ at the 2nd right ICS. Grade I/ apical systolic murmur at the apex. S3 gallop at the apex. LUNGS: Fine crepitations at the right base. ABDOMEN: Soft, nontender, no organomegaly or masses felt. EXTREMITIES: 2+ pitting edema of both lower extremities. No calf tenderness. CBC, BMP 07/05/17 08:50 07/07/17 07:00 IMPRESSION: 1. CHF. NYHA III. 2. CABG, S/P, NSTEMI, S/P PCI/Stenting. 3. Severe LV systolic dysfunction. 4. COPD. 5. CKD. RECOMMENDATIONS: 1. Both Demadex and Aldactone to be given immediately(given). 2. If there is no improvement transfer to CCU. 3. May require IV diuretics. 4. F/U BMP. Prognosis: Critical.
--- NOTE | 2017-07-07 14:58 | PN ---
Progress Note (short form) - Note Progress Note: Subjective: seen in am at , complained of feeling tired, denied SOB. was not given his demadex this am, later developed SOB meds given and sx improved Objective: Vital Signs: Last Vital Signs Temp Pulse Resp BP Pulse Ox 98.2 F 70 20 102/58 97 07/07/17 14:00 07/07/17 14:00 07/07/17 14:00 07/07/17 14:00 07/07/17 09:00 Laboratory Results - last 24 hr 07/07/17 07:00 Sodium 133 L Potassium 4.4 Chloride 95 L Carbon Dioxide 28 Anion Gap 10 BUN 56 H Creatinine 2.7 H Random Glucose 118 H Calcium 8.4 L Phosphorus 4.0 Magnesium 2.7 H Intake & Output 07/04/17 07/05/17 07/06/17 07/07/17 23:59 23:59 23:59 23:59 Intake Total 1070 210 Balance 1070 210 Weight 125 lb 173 lb 8 oz 175 lb 6 oz 178 lb Physical Exam: NAD , AAOX3 . HEENT: NC, AT . MMM CV: RRR, no MRG. contto have JVD Lungs: bibasilar crackles improved from before Ext: 1+ pitting edema on both legs from knee down. no erythema . well healing scar on medial calves . DP 2+ ASSESSMENT AND PLAN: 87 y/o man with h/o CAD, S/p CABG, recent stenting, AICD placement , HTN, HL, and other medical problems who presented with worsening SOB and was found to have acute CHF exacerbation 1- Acute on chronic Systolic and diastolic CHF: due to non compliance . - cont demadex . - Cr is rising, this is worrisome - will start dobutamine gtt - Cont core.125 in am and 6.25 in evening 2- HTN: cont coreg . now off imdur 3- H/O CAD : cont BB and ASA/Plavix 4- CKD :Cr worse than base line . 5- Anxiety: Cont buspar and while here xanax PRN. dispo : HLOC DVT px Visit type - Emergency Visit Emergency Visit: Yes ED Registration Date: 07/05/17 Care time: The patient presented to the Emergency Department on the above date and was hospitalized for further evaluation of their emergent condition. - New Patient This patient is new to me today: No - Critical Care Critical Care patient: No
[2017-07-07] MEDS: ACETAMINOPHEN 325 MG TABLET (FP) PO PRN (17:21)
[2017-07-07] MEDS ORDERED: PT OWN MED DRAWER 7, Y5N ONE ×2 (18:08→21:35)
[2017-07-07] MEDS: DOBUTAMINE HCL 250,000 MCG in SODIUM CHLORIDE 230 ML IV SCH (20:02)
[2017-07-07] MEDS: traZODone HCL 50 MG TABLET (FP) PO SCH (22:20)
[2017-07-07] MEDS: CARVEDILOL 6.25 MG TABLET (FP) PO SCH (22:22)
[2017-07-07] MEDS: ATORVASTATIN CA 10 MG TABLET (FP) PO SCH (22:22)
[2017-07-08] MEDS: CARVEDILOL 3.125 MG TABLET (FP) PO SCH (06:52)
[2017-07-08] MEDS: CLOPIDOGREL BISULFATE 75 MG TABLET (FP) PO SCH (06:52)
[2017-07-08] MEDS: HEPARIN NA (PORCINE) 5,000 UNITS/ML 1ML VIAL SQ SCH ×3 (06:52→22:19)
[2017-07-08] MEDS: TAMSULOSIN HCL 0.4 MG CAP.ER.24H (FP) PO SCH ×2 (08:08→08:09)
[2017-07-08 08:42] LABS: ANION GAP 14 (8-16); CALCIUM 8.2 mg/dL (8.5-10.1); CO2 26 mmol/L (21-32); CREATININE 2.9 mg/dL (0.7-1.3); GLUCOSE,RANDOM 102 mg/dL (74-106)
[2017-07-08] MEDS ORDERED: PT OWN MED DRAWER 7, Y5N ONE ×3 (09:07→22:16)
[2017-07-08] MEDS: SPIRONOLACTONE 25 MG TABLET (FP) PO SCH ×2 (09:12→22:19)
[2017-07-08] MEDS: ASPIRIN COATED 81 MG TABLET.EC PO SCH (09:12)
[2017-07-08] MEDS: TORSEMIDE 20 MG TABLET (FP) PO SCH (09:12)
[2017-07-08] MEDS: POTASSIUM CHLORIDE ORAL LIQUID 20 MEQ/15 ML PO SCH (09:12)
[2017-07-08] MEDS: ALPRAZolam 0.25 MG TABLET PO SCH ×2 (09:12→22:19)
[2017-07-08] MEDS: busPIRone HCL 10 MG TABLET (FP) PO SCH ×2 (09:13→22:21)
--- NOTE | 2017-07-08 09:42 | PN ---
Progress Note (short form) - Note Progress Note: 87 year old male with H/O severe systolic dysfunction, CHF, CAD, NSTEMI, S?P PCI /Stenting, acute on CKD, LBBB, S/P ICD, hypertension and poor compliance. Patient is on low dose dobutamine for CHF. C/O mild SOB, no chest pain or discomfort, persistant pedal edema.Still has fatique and weakness. Current Medications Generic Name Dose Route Start Last Admin Trade Name Freq PRN Reason Stop Dose Admin Acetaminophen 650 mg 07/05/17 14:17 07/07/17 17:21 Tylenol - PO 650 mg Q6H PRN Administration FEVER OR PAIN Alprazolam 0.25 mg 07/05/17 22:00 07/08/17 09:12 Xanax - PO 0.25 mg BID JEREMÍAS Administration Aspirin 81 mg 07/05/17 10:00 07/08/17 09:12 Ecotrin - PO 81 mg DAILY JEREMÍAS Administration Atorvastatin Calcium 10 mg 07/05/17 22:00 07/07/17 22:22 Lipitor - PO Not Given HS JEREMÍAS Buspirone HCl 10 mg 07/05/17 22:00 07/08/17 09:13 Buspar - PO 10 mg BID JEREMÍAS Administration Carvedilol 3.125 mg 07/06/17 07:00 07/08/17 06:52 Coreg - PO 3.125 mg DAILY@0700 JEREMÍAS Administration Carvedilol 6.25 mg 07/05/17 22:00 07/07/17 22:22 Coreg - PO 6.25 mg DAILY@2200 JEREMÍAS Administration Clopidogrel Bisulfate 75 mg 07/05/17 07:00 07/08/17 06:52 Plavix - PO 75 mg AM JEREMÍAS Administration Heparin Sodium (Porcine) 5,000 unit 07/05/17 14:00 07/08/17 06:52 Heparin - SQ 5,000 unit TID JEREMÍAS Administration Dobutamine HCl 250,000 mcg/ 250 mls @ 24.22 mls/hr 07/07/17 15:00 07/07/17 20: 02 Sodium Chloride IV 24.22 mls/hr TITR JEREMÍAS Administration Protocol 5 MCG/KG/MIN Potassium Chloride 20 meq 07/05/17 10:00 07/08/17 09:12 Potassium Chloride Oral Liquid PO 20 meq DAILY JEREMÍAS Administration Spironolactone 12.5 mg 07/05/17 10:00 07/08/17 09:12 Aldactone - PO 12.5 mg BID JEREMÍAS Administration Tamsulosin HCl 0.4 mg 07/05/17 08:30 07/08/17 08:09 Flomax - PO Not Given DAILY@0830 JEREMÍAS Torsemide 40 mg 07/06/17 10:00 07/08/17 09:12 Demadex - PO 40 mg DAILY JEREMÍAS Administration Trazodone HCl 25 mg 07/05/17 22:00 07/07/17 22:20 Desyrel - PO 25 mg HS JEREMÍAS Administration 87 year old male is mildly dyspneic, no pallor, cyanosis, clubbing or jaundice. Vital Signs - 8 hr 07/08/17 07/08/17 02:00 06:00 Temperature 97.5 F L Pulse Rate 72 70 Respiratory 20 20 Rate Blood Pressure 118/58 95/58 Intake & Output 07/05/17 07/06/17 07/07/17 07/08/17 23:59 23:59 23:59 23:59 Intake Total 1070 210 200 250 Balance 1070 210 200 250 Weight 173 lb 8 oz 175 lb 6 oz 178 lb 178 lb NECK: Supple,+ve HJR, elevated JVD at 30 degrees, carotids equal, no bruits heard. HEART: PMI in the 5th ICS, distant heart sounds, DUARTE II/ at the 2nd right ICS. Grade I/ apical systolic murmur at the apex. No Gallops are heard. LUNGS: Decreased breath sounds at the right base. ABDOMEN: Soft, nontender, no organomegaly or masses felt. EXTREMITIES: 2+ pitting edema of both lower extremities. No calf tenderness. LABS: Pending. IMPRESSION: 1. CHF. NYHA III. 2. CABG, S/P, NSTEMI, S/P PCI/Stenting. 3. Severe LV systolic dysfunction. 4. COPD. 5. CKD. 6. Acute on CKD. RECOMMENDATIONS: 1. Consider short term use of IV diuretics. 2. If necessary add Zaroxyln 2.5mg. po 1/2 hr before diuretics 3. Close F/U BMP. 4. F/u EKG. Prognosis: Critical.
--- NOTE | 2017-07-08 10:29 | PN ---
Progress Note, Physician History of Present Illness: pulmonary alert,feeling better,less dyspneic. pt on dobutamine drip - Current Medication List Current Medications: Active Medications Acetaminophen (Tylenol -) 650 mg PO Q6H PRN PRN Reason: FEVER OR PAIN Last Admin: 07/07/17 17:21 Dose: 650 mg Alprazolam (Xanax -) 0.25 mg PO BID [facility] Last Admin: 07/08/17 09:12 Dose: 0.25 mg Aspirin (Ecotrin -) 81 mg PO DAILY [facility] Last Admin: 07/08/17 09:12 Dose: 81 mg Atorvastatin Calcium (Lipitor -) 10 mg PO HS [facility] Last Admin: 07/07/17 22:22 Dose: Not Given Buspirone HCl (Buspar -) 10 mg PO BID [facility] Last Admin: 07/08/17 09:13 Dose: 10 mg Carvedilol (Coreg -) 3.125 mg PO DAILY@0700 [facility] Last Admin: 07/08/17 06:52 Dose: 3.125 mg Carvedilol (Coreg -) 6.25 mg PO DAILY@2200 [facility] Last Admin: 07/07/17 22:22 Dose: 6.25 mg Clopidogrel Bisulfate (Plavix -) 75 mg PO AM [facility] Last Admin: 07/08/17 06:52 Dose: 75 mg Heparin Sodium (Porcine) (Heparin -) 5,000 unit SQ TID [facility] Last Admin: 07/08/17 06:52 Dose: 5,000 unit Dobutamine HCl 250,000 mcg/ (Sodium Chloride) 250 mls @ 24.22 mls/hr IV TITR JEREMÍAS; 5 MCG/KG/MIN PRN Reason: Protocol Last Admin: 07/07/17 20:02 Dose: 24.22 mls/hr Potassium Chloride (Potassium Chloride Oral Liquid) 20 meq PO DAILY [facility] Last Admin: 07/08/17 09:12 Dose: 20 meq Spironolactone (Aldactone -) 12.5 mg PO BID [facility] Last Admin: 07/08/17 09:12 Dose: 12.5 mg Tamsulosin HCl (Flomax -) 0.4 mg PO DAILY@0830 [facility] Last Admin: 07/08/17 08:09 Dose: Not Given Torsemide (Demadex -) 40 mg PO DAILY [facility] Last Admin: 07/08/17 09:12 Dose: 40 mg Trazodone HCl (Desyrel -) 25 mg PO HS [facility] Last Admin: 07/07/17 22:20 Dose: 25 mg - Objective Vital Signs: Vital Signs Temperature 97.5 F L 07/08/17 02:00 Pulse Rate 70 07/08/17 06:00 Respiratory Rate 20 07/08/17 06:00 Blood Pressure 95/58 07/08/17 06:00 O2 Sat by Pulse Oximetry (%) 100 07/07/17 20:55 Constitutional: Yes: Calm, Thin Eyes: Yes: WNL HENT: Yes: Nasal Congestion Neck: Yes: WNL Cardiovascular: Yes: Regular Rate and Rhythm, S1, S2 Respiratory: Yes: Rales (bibasilar rales) Gastrointestinal: Yes: Normal Bowel Sounds, Soft Extremities: Yes: WNL Edema: Yes (less edema bilaterally) Labs: CBC, BMP 07/05/17 08:50 07/08/17 05:30 Problem List - Problems (1) Acute exacerbation of CHF (congestive heart failure) Code(s): I50.9 - HEART FAILURE, UNSPECIFIED Qualifiers: Congestive heart failure type: systolic Qualified Code(s): I50.23 - Acute on chronic systolic (congestive) heart failure (2) Orthopnea Code(s): R06.01 - ORTHOPNEA (3) SOB (shortness of breath) Code(s): R06.02 - SHORTNESS OF BREATH (4) CAD (coronary artery disease) Code(s): I25.10 - ATHSCL HEART DISEASE OF [place] CORONARY ARTERY W/O ANG PCTRS (5) Chronic kidney disease (CKD) stage G3a/A2, moderately decreased glomerular filtration rate (GFR) between 45-59 mL/min/1.73 square meter and albuminuria creatinine ratio between 30-299 mg/g Code(s): N18.3 - CHRONIC KIDNEY DISEASE, STAGE 3 (MODERATE) (6) Weakness Code(s): R53.1 - WEAKNESS (7) Hypertension Code(s): I10 - ESSENTIAL (PRIMARY) HYPERTENSION Assessment/Plan IMP ACUTE ON CHRONIC CHF SECONDARY TO NON-COMPLIANCE ASHD S/P CABG,STENT ICD S/P NSTEMI CKD COPD HTN HLD PLAN DIURETICS,DOBUTAMINE DRIP O2 DAILY WTS MONITOR LYTES,RENAL FUNCTION F/U CHEST X-RAY TODAY DR ANGELA Problem List - Problems (1) Acute exacerbation of CHF (congestive heart failure) Code(s): I50.9 - HEART FAILURE, UNSPECIFIED Qualifiers: Congestive heart failure type: systolic Qualified Code(s): I50.23 - Acute on chronic systolic (congestive) heart failure (2) Orthopnea Code(s): R06.01 - ORTHOPNEA (3) SOB (shortness of breath) Code(s): R06.02 - SHORTNESS OF BREATH (4) CAD (coronary artery disease) Code(s): I25.10 - ATHSCL HEART DISEASE OF [place] CORONARY ARTERY W/O ANG PCTRS (5) Chronic kidney disease (CKD) stage G3a/A2, moderately decreased glomerular filtration rate (GFR) between 45-59 mL/min/1.73 square meter and albuminuria creatinine ratio between 30-299 mg/g Code(s): N18.3 - CHRONIC KIDNEY DISEASE, STAGE 3 (MODERATE) (6) Weakness Code(s): R53.1 - WEAKNESS (7) Hypertension Code(s): I10 - ESSENTIAL (PRIMARY) HYPERTENSION
[2017-07-08] MEDS: FUROSEMIDE INJECTION 100 MG in DEXTROSE 5%-WATER - 40 ML IVPB SCH (12:08)
[2017-07-08] MEDS: DOBUTAMINE HCL 250,000 MCG in SODIUM CHLORIDE 230 ML IV SCH (16:00)
[2017-07-08] MEDS ORDERED: DOBUTAMINE 250 MG/D5W - 250 ML ONE (17:13)
--- NOTE | 2017-07-08 18:21 | PN ---
Teaching Attending Note Name of Resident: Kelsy Red ATTENDING PHYSICIAN STATEMENT I saw and evaluated the patient. I reviewed the resident's note and discussed the case with the resident. I agree with the resident's findings and plan as documented. SUBJECTIVE: no fever or chills. SOB OBJECTIVE: NAD , AAOX3 . HEENT: NC, AT . MMM CV: RRR, no MRG. cont to have JVD Lungs: crackles half way down on both sides ( worse ) Ext: 1+ pitting edema on both legs from knee down. no erythema . well healing scar on medial calves . DP 2+ ASSESSMENT AND PLAN: 87 y/o man with h/o CAD, S/p CABG, recent stenting, AICD placement , HTN, HL, and other medical problems who presented with worsening SOB and was found to have acute CHF exacerbation 1- Acute on chronic Systolic and diastolic CHF: due to non compliance . -Due to worsening crackles , and increasing cr , start lasix gtt -Cont Dobutamine gtt - Cont core.125 in am and 6.25 in evening 2- HTN: cont coreg . now off imdur 3- H/O CAD: cont BB and ASA/Plavix 4- CKD :Cr worse than base line . monitor with dobutamine and lasix gtt 5- Anxiety: Cont buspar and while here xanax PRN. dispo : HLOC DVT px
--- NOTE | 2017-07-08 18:36 | PN ---
Physical Exam: SUBJECTIVE: Patient seen and examined. Says he has no energy and is very weak. Says he has SOB but denies pain. OBJECTIVE: Vital Signs Period Temp Pulse Resp BP Sys/العلي Pulse Ox Last 24 Hr 97.4 F-98.3 F 70-87 20-22 95-134/57-91 98-100 GENERAL: The patient is awake, alert, and fully oriented, in no acute distress. HEAD: Normal with no signs of trauma. NECK: supple. LUNGS: crackles throughout, no wheezing HEART: + JVD, Regular rate and rhythm, S1, S2 without murmur, rub or gallop. ABDOMEN: Soft, nontender, nondistended, normoactive bowel sounds, no guarding, no rebound, no hepatosplenomegaly, no masses. EXTREMITIES: 2+ pulses, B/L LE 2+ edema PSYCH: Normal mood, normal affect. Laboratory Results - last 24 hr 07/08/17 05:30 Sodium 135 L Potassium 4.4 Chloride 95 L Carbon Dioxide 26 Anion Gap 14 BUN 57 H Creatinine 2.9 H Random Glucose 102 Calcium 8.2 L Active Medications Generic Name Dose Route Start Last Admin Trade Name Freq PRN Reason Stop Dose Admin Acetaminophen 650 mg 07/05/17 14:17 07/07/17 17:21 Tylenol - PO 650 mg Q6H PRN Administration FEVER OR PAIN Alprazolam 0.25 mg 07/05/17 22:00 07/08/17 09:12 Xanax - PO 0.25 mg BID JEREMÍAS Administration Aspirin 81 mg 07/05/17 10:00 07/08/17 09:12 Ecotrin - PO 81 mg DAILY JEREMÍAS Administration Atorvastatin Calcium 10 mg 07/05/17 22:00 07/07/17 22:22 Lipitor - PO Not Given HS JEREMÍAS Buspirone HCl 10 mg 07/05/17 22:00 07/08/17 09:13 Buspar - PO 10 mg BID JEREMÍAS Administration Carvedilol 3.125 mg 07/06/17 07:00 07/08/17 06:52 Coreg - PO 3.125 mg DAILY@0700 JEREMÍAS Administration Carvedilol 6.25 mg 07/05/17 22:00 07/07/17 22:22 Coreg - PO 6.25 mg DAILY@2200 JEREMÍAS Administration Clopidogrel Bisulfate 75 mg 07/05/17 07:00 07/08/17 06:52 Plavix - PO 75 mg AM JEREMÍAS Administration Heparin Sodium (Porcine) 5,000 unit 07/05/17 14:00 07/08/17 14:27 Heparin - SQ 5,000 unit TID JEREMÍAS Administration Dobutamine HCl 250,000 mcg/ 250 mls @ 24.22 mls/hr 07/07/17 15:00 07/08/17 16: 00 Sodium Chloride IV 24.2 mls/hr TITR JEREMÍAS Administration Protocol 5 MCG/KG/MIN Furosemide 100 mg/ Dextrose 50 mls @ 2.5 mls/hr 07/08/17 11:00 07/08/17 12:08 IVPB 2.5 mls/hr TITR JEREMÍAS Administration 5 MG/HR Potassium Chloride 20 meq 07/05/17 10:00 07/08/17 09:12 Potassium Chloride Oral Liquid PO 20 meq DAILY JEREMÍAS Administration Spironolactone 12.5 mg 07/05/17 10:00 07/08/17 09:12 Aldactone - PO 12.5 mg BID JEREMÍAS Administration Tamsulosin HCl 0.4 mg 07/05/17 08:30 07/08/17 08:09 Flomax - PO Not Given DAILY@0830 JEREMÍAS Trazodone HCl 25 mg 07/05/17 22:00 07/07/17 22:20 Desyrel - PO 25 mg HS JEREMÍAS Administration ASSESSMENT/PLAN: 87M with h/o CAD, S/p CABG, recent stenting, AICD placement , HTN, HLD , presents to the hospital with acute on chronic left sided systolic heart failure with SOB. #Acute on chronic CHF left sided systolic exacerbation: (due to noncompliance) -worsening crackles today -continue dobutamine drip -strict ins and outs, daily weights -BUN/Creatinine at baseline -Started on Lasix drip 5,l/hour -Adjusted Coreg to 3.125 in am and 6.25 in evening -Stopped Torsemide -continue spironolactone #Anxiety/Claustorphobia -started Buspar 10mg BID - Xanax .25prn BID #CAD: see above - Atorvastatin 10mg -Aspirin 81mg -Plavix 75mg #HTN: -Continue Coreg #CKD: Creatinine at baseline will continue to trend and monitor #Anxiety/Insomnia -Continue Trazodone #BPH: restart home dose of flomax at .4mg in evenings #FEN: Not on IV Fluids sodium controlled diet #PPx: Heparin SQ 5000U no GI PPx indicated Visit type - Emergency Visit Emergency Visit: Yes ED Registration Date: 07/05/17 Care time: The patient presented to the Emergency Department on the above date and was hospitalized for further evaluation of their emergent condition. - New Patient This patient is new to me today: No - Critical Care Critical Care patient: No
[2017-07-08] MEDS: CARVEDILOL 6.25 MG TABLET (FP) PO SCH (22:19)
[2017-07-08] MEDS: traZODone HCL 50 MG TABLET (FP) PO SCH (22:20)
[2017-07-08] MEDS: ATORVASTATIN CA 10 MG TABLET (FP) PO SCH (22:20)
[2017-07-09] MEDS: HEPARIN NA (PORCINE) 5,000 UNITS/ML 1ML VIAL SQ SCH ×3 (06:36→22:15)
[2017-07-09] MEDS: CLOPIDOGREL BISULFATE 75 MG TABLET (FP) PO SCH (06:36)
[2017-07-09] MEDS: CARVEDILOL 3.125 MG TABLET (FP) PO SCH (06:36)
[2017-07-09 07:34] LABS: MCH 29.2 pg (25.7-33.7); MCHC 33.1 g/dl (32.0-35.9); MEAN CELL VOLUME 88.3 fl (80-96); MEAN PLT VOLUME 9.7 fl (7.5-11.1); PLATELET COUNT 121 K/MM3 (134-434); RDW 15.9 % (11.9-15.9); WHITE BLOOD COUNT 3.8 K/mm3 (4.0-10.0)
[2017-07-09 08:40] LABS: ALBUMIN 3.2 g/dl (3.4-5.0); ALK PHOS 94 U/L (45-117); ANION GAP 12 (8-16); BILIRUBIN,TOTAL 1.3 mg/dL (0.2-1.0); CO2 29 mmol/L (21-32); CREATININE 2.8 mg/dL (0.7-1.3); GLUCOSE,RANDOM 95 mg/dL (74-106); SGOT/AST 12 U/L (15-37); SGPT/ALT 19 U/L (12-78); TOT PROT 6.1 g/dl (6.4-8.2)
[2017-07-09] MEDS ORDERED: PT OWN MED DRAWER 7, Y5N ONE ×4 (08:46→22:14)
[2017-07-09] MEDS: POTASSIUM CHLORIDE ORAL LIQUID 20 MEQ/15 ML PO SCH (09:11)
[2017-07-09] MEDS: SPIRONOLACTONE 25 MG TABLET (FP) PO SCH ×2 (09:14→22:16)
[2017-07-09] MEDS: busPIRone HCL 10 MG TABLET (FP) PO SCH ×2 (09:14→23:00)
[2017-07-09] MEDS: ALPRAZolam 0.25 MG TABLET PO SCH ×2 (09:15→22:16)
[2017-07-09] MEDS: ASPIRIN COATED 81 MG TABLET.EC PO SCH (09:15)
[2017-07-09] MEDS: TAMSULOSIN HCL 0.4 MG CAP.ER.24H (FP) PO SCH (09:15)
--- NOTE | 2017-07-09 10:19 | PN ---
Progress Note, Physician History of Present Illness: PULMONARY ALERT,OOB-CHAIR,FEELING BETTER,LESS DYSPNEIC,STILL C/O WEAKNESS - Current Medication List Current Medications: Active Medications Acetaminophen (Tylenol -) 650 mg PO Q6H PRN PRN Reason: FEVER OR PAIN Last Admin: 07/07/17 17:21 Dose: 650 mg Alprazolam (Xanax -) 0.25 mg PO BID [facility] Last Admin: 07/09/17 09:15 Dose: 0.25 mg Aspirin (Ecotrin -) 81 mg PO DAILY [facility] Last Admin: 07/09/17 09:15 Dose: 81 mg Atorvastatin Calcium (Lipitor -) 10 mg PO HS [facility] Last Admin: 07/08/17 22:20 Dose: 10 mg Buspirone HCl (Buspar -) 10 mg PO BID [facility] Last Admin: 07/09/17 09:14 Dose: 10 mg Carvedilol (Coreg -) 3.125 mg PO DAILY@0700 [facility] Last Admin: 07/09/17 06:36 Dose: 3.125 mg Carvedilol (Coreg -) 6.25 mg PO DAILY@2200 [facility] Last Admin: 07/08/17 22:19 Dose: 6.25 mg Clopidogrel Bisulfate (Plavix -) 75 mg PO AM [facility] Last Admin: 07/09/17 06:36 Dose: 75 mg Heparin Sodium (Porcine) (Heparin -) 5,000 unit SQ TID [facility] Last Admin: 07/09/17 06:36 Dose: 5,000 unit Dobutamine HCl 250,000 mcg/ (Sodium Chloride) 250 mls @ 24.22 mls/hr IV TITR JEREMÍAS; 5 MCG/KG/MIN PRN Reason: Protocol Last Titration: 07/09/17 06:38 Dose: 5.01 mcg/kg/min Furosemide 100 mg/ Dextrose 50 mls @ 2.5 mls/hr IVPB TITR [facility] PRN Reason: 5 MG/HR Last Admin: 07/08/17 12:08 Dose: 2.5 mls/hr Potassium Chloride (Potassium Chloride Oral Liquid) 20 meq PO DAILY [facility] Last Admin: 07/09/17 09:11 Dose: 20 meq Spironolactone (Aldactone -) 12.5 mg PO BID [facility] Last Admin: 07/09/17 09:14 Dose: 12.5 mg Tamsulosin HCl (Flomax -) 0.4 mg PO DAILY@0830 [facility] Last Admin: 07/09/17 09:15 Dose: Not Given Trazodone HCl (Desyrel -) 25 mg PO HS [facility] Last Admin: 07/08/17 22:20 Dose: 25 mg - Objective Vital Signs: Vital Signs Temperature 98 F 07/09/17 05:00 Pulse Rate 76 07/09/17 06:38 Respiratory Rate 20 07/09/17 01:00 Blood Pressure 126/69 07/09/17 06:38 O2 Sat by Pulse Oximetry (%) 98 07/08/17 20:33 Constitutional: Yes: Calm, Thin Eyes: Yes: WNL HENT: Yes: WNL Neck: Yes: WNL Cardiovascular: Yes: Regular Rate and Rhythm, S1, S2 Respiratory: Yes: Rales (BILATERAL RALES 1/3 UP) Gastrointestinal: Yes: Normal Bowel Sounds, Soft Extremities: Yes: WNL Edema: Yes Labs: CBC, BMP 07/09/17 05:28 07/09/17 05:28 Problem List - Problems (1) Acute exacerbation of CHF (congestive heart failure) Code(s): I50.9 - HEART FAILURE, UNSPECIFIED Qualifiers: Congestive heart failure type: systolic Qualified Code(s): I50.23 - Acute on chronic systolic (congestive) heart failure (2) Orthopnea Code(s): R06.01 - ORTHOPNEA (3) SOB (shortness of breath) Code(s): R06.02 - SHORTNESS OF BREATH (4) CAD (coronary artery disease) Code(s): I25.10 - ATHSCL HEART DISEASE OF [place] CORONARY ARTERY W/O ANG PCTRS (5) Chronic kidney disease (CKD) stage G3a/A2, moderately decreased glomerular filtration rate (GFR) between 45-59 mL/min/1.73 square meter and albuminuria creatinine ratio between 30-299 mg/g Code(s): N18.3 - CHRONIC KIDNEY DISEASE, STAGE 3 (MODERATE) (6) Weakness Code(s): R53.1 - WEAKNESS (7) Hypertension Code(s): I10 - ESSENTIAL (PRIMARY) HYPERTENSION Assessment/Plan IMP ACUTE ON CHRONIC CHF SECONDARY TO NON-COMPLIANCE ASHD S/P CABG,STENT ICD S/P NSTEMI CKD COPD HTN HLD PLAN DIURETICS,DOBUTAMINE DRIP O2 DAILY WTS MONITOR LYTES,RENAL FUNCTION DR ANGELA Problem List - Problems (1) Acute exacerbation of CHF (congestive heart failure) Code(s): I50.9 - HEART FAILURE, UNSPECIFIED Qualifiers: Congestive heart failure type: systolic Qualified Code(s): I50.23 - Acute on chronic systolic (congestive) heart failure (2) Orthopnea Code(s): R06.01 - ORTHOPNEA (3) SOB (shortness of breath) Code(s): R06.02 - SHORTNESS OF BREATH (4) CAD (coronary artery disease) Code(s): I25.10 - ATHSCL HEART DISEASE OF [place] CORONARY ARTERY W/O ANG PCTRS (5) Chronic kidney disease (CKD) stage G3a/A2, moderately decreased glomerular filtration rate (GFR) between 45-59 mL/min/1.73 square meter and albuminuria creatinine ratio between 30-299 mg/g Code(s): N18.3 - CHRONIC KIDNEY DISEASE, STAGE 3 (MODERATE) (6) Weakness Code(s): R53.1 - WEAKNESS (7) Hypertension Code(s): I10 - ESSENTIAL (PRIMARY) HYPERTENSION
--- NOTE | 2017-07-09 15:22 | PN ---
Teaching Attending Note Name of Resident: Kelsy Red ATTENDING PHYSICIAN STATEMENT I saw and evaluated the patient. I reviewed the resident's note and discussed the case with the resident. I agree with the resident's findings and plan as documented. SUBJECTIVE: no fever or chills. SOB is Better . has no CP . OBJECTIVE: NAD , AAOX3 . HEENT: AT, NC . MMM CV: RRR, no MRG. cont to have JVD Lungs: Crackles at R base Ext: 1+ pitting edema on both legs from knee down. no erythema . well healing scar on medial calves . DP 2+ ASSESSMENT AND PLAN: 87 y/o man with h/o CAD, S/p CABG, recent stenting, AICD placement , HTN, HL, and other medical problems who presented with worsening SOB and was found to have acute CHF exacerbation 1- Acute on chronic Systolic and diastolic CHF: due to non compliance . -cont lasix gtt ( started yesterday) -Cont Dobutamine gtt - Cont core.125 in am and 6.25 in evening - sx imporved , adn Cr stabilized ( weight might not be accurate due to scale variation ) . COnt current management for now . If needed we can give intermittent doses of Metolazone 2- HTN: cont coreg . now off imdur 3- H/O CAD: cont BB and ASA/Plavix 4- CKD :Cr stabilized on lasix and dobutamin gtt 5- Anxiety: Cont Buspar and while here xanax PRN. dispo : HLOC DVT px
--- NOTE | 2017-07-09 16:07 | PN ---
Physical Exam: SUBJECTIVE: Patient seen and examined. Says he has no energy and is very weak. Says he has SOB but denies pain. OBJECTIVE: Vital Signs Period Temp Pulse Resp BP Sys/العلي Pulse Ox Last 24 Hr 97.7 F-98.3 F 69-77 18-20 112-132/46-75 98-100 GENERAL: The patient is awake, alert, and fully oriented, in no acute distress. HEAD: Normal with no signs of trauma. NECK: supple. LUNGS: crackles throughout, no wheezing HEART: + JVD, Regular rate and rhythm, S1, S2 without murmur, rub or gallop. ABDOMEN: Soft, nontender, nondistended, normoactive bowel sounds, no guarding, no rebound, no hepatosplenomegaly, no masses. EXTREMITIES: 2+ pulses, B/L LE 2+ edema (showing improvement) PSYCH: Normal mood, normal affect. Laboratory Results - last 24 hr 07/09/17 07/09/17 05:28 05:28 WBC 3.8 L D RBC 3.61 L Hgb 10.6 L Hct 31.9 L MCV 88.3 MCH 29.2 MCHC 33.1 RDW 15.9 Plt Count 121 L MPV 9.7 Sodium 135 L Potassium 3.9 Chloride 94 L Carbon Dioxide 29 Anion Gap 12 BUN 56 H Creatinine 2.8 H Creat Clearance w eGFR 21.54 Random Glucose 95 Calcium 8.0 L Total Bilirubin 1.3 H D AST 12 L D ALT 19 Alkaline Phosphatase 94 Total Protein 6.1 L Albumin 3.2 L Active Medications Generic Name Dose Route Start Last Admin Trade Name Freq PRN Reason Stop Dose Admin Acetaminophen 650 mg 07/05/17 14:17 07/07/17 17:21 Tylenol - PO 650 mg Q6H PRN Administration FEVER OR PAIN Alprazolam 0.25 mg 07/05/17 22:00 07/09/17 09:15 Xanax - PO 0.25 mg BID JEREMÍAS Administration Aspirin 81 mg 07/05/17 10:00 07/09/17 09:15 Ecotrin - PO 81 mg DAILY JEREMÍAS Administration Atorvastatin Calcium 10 mg 07/05/17 22:00 07/08/17 22:20 Lipitor - PO 10 mg HS JEREMÍAS Administration Buspirone HCl 10 mg 07/05/17 22:00 09/26/17 09:14 Buspar - PO 10 mg BID JEREMÍAS Administration Carvedilol 3.125 mg 07/06/17 07:00 07/09/17 06:36 Coreg - PO 3.125 mg DAILY@0700 JEREMÍAS Administration Carvedilol 6.25 mg 07/05/17 22:00 07/08/17 22:19 Coreg - PO 6.25 mg DAILY@2200 JEREMÍAS Administration Clopidogrel Bisulfate 75 mg 07/05/17 07:00 07/09/17 06:36 Plavix - PO 75 mg AM [facility]AS Administration Heparin Sodium (Porcine) 5,000 unit 07/05/17 14:00 07/09/17 13:09 Heparin - SQ 5,000 unit TID JEREMÍAS Administration Dobutamine HCl 250,000 mcg/ 250 mls @ 24.22 mls/hr 07/07/17 15:00 07/09/17 06: 38 Sodium Chloride IV 5.01 mcg/kg/min TITR JEREMÍAS Titration Protocol 5 MCG/KG/MIN Furosemide 100 mg/ Dextrose 50 mls @ 2.5 mls/hr 07/08/17 11:00 07/08/17 12:08 IVPB 2.5 mls/hr TITR JEREMÍAS Administration 5 MG/HR Potassium Chloride 20 meq 07/05/17 10:00 07/09/17 09:11 Potassium Chloride Oral Liquid PO 20 meq DAILY JER[facility]ÍAS Administration Spironolactone 12.5 mg 07/05/17 10:00 07/09/17 09:14 Aldactone - PO 12.5 mg BID JEREMÍAS Administration Tamsulosin HCl 0.4 mg 07/05/17 08:30 07/09/17 09:15 Flomax - PO Not Given DAILY@0830 [facility] Trazodone HCl 25 mg 07/05/17 22:00 07/08/17 22:20 Desyrel - PO 25 mg HS JEREMÍAS Administration ASSESSMENT/PLAN: 87M with h/o CAD, S/p CABG, recent stenting, AICD placement , HTN, HLD , presents to the hospital with acute on chronic left sided systolic heart failure with SOB. #Acute on chronic CHF left sided systolic exacerbation: (due to noncompliance) -less crackles on physical today -continue dobutamine drip -strict ins and outs, daily weights -BUN/Creatinine at baseline -Continue Lasix drip 5ml/hour -Continue Coreg to 3.125 in am and 6.25 in evening -Stopped Torsemide -continue spironolactone #Anxiety/Claustorphobia -started Buspar 10mg BID - Xanax .25prn BID #CAD: see above - Atorvastatin 10mg -Aspirin 81mg -Plavix 75mg #HTN: -Continue Coreg #CKD: Creatinine at baseline will continue to trend and monitor #Anxiety/Insomnia -Continue Trazodone #BPH: restart home dose of flomax at .4mg in evenings #FEN: Not on IV Fluids sodium controlled diet #PPx: Heparin SQ 5000U no GI PPx indicated Visit type - Emergency Visit Emergency Visit: Yes ED Registration Date: 07/05/17 Care time: The patient presented to the Emergency Department on the above date and was hospitalized for further evaluation of their emergent condition. - New Patient This patient is new to me today: No - Critical Care Critical Care patient: No
--- NOTE | 2017-07-09 21:44 | PN ---
Progress Note (short form) - Note Progress Note: S: Resting comfortably,no SOB, PND or orthopnea. No chest pain or discomfort, on dobutamine. Active Medications Acetaminophen (Tylenol -) 650 mg PO Q6H PRN PRN Reason: FEVER OR PAIN Last Admin: 07/07/17 17:21 Dose: 650 mg Alprazolam (Xanax -) 0.25 mg PO BID [facility] Last Admin: 07/09/17 09:15 Dose: 0.25 mg Aspirin (Ecotrin -) 81 mg PO DAILY [facility] Last Admin: 07/09/17 09:15 Dose: 81 mg Atorvastatin Calcium (Lipitor -) 10 mg PO HS [facility] Last Admin: 07/08/17 22:20 Dose: 10 mg Buspirone HCl (Buspar -) 10 mg PO BID [facility] Last Admin: 07/09/17 09:14 Dose: 10 mg Carvedilol (Coreg -) 3.125 mg PO DAILY@0700 [facility] Last Admin: 07/09/17 06:36 Dose: 3.125 mg Carvedilol (Coreg -) 6.25 mg PO DAILY@2200 [facility] Last Admin: 07/08/17 22:19 Dose: 6.25 mg Clopidogrel Bisulfate (Plavix -) 75 mg PO AM [facility] Last Admin: 07/09/17 06:36 Dose: 75 mg Heparin Sodium (Porcine) (Heparin -) 5,000 unit SQ TID [facility] Last Admin: 07/09/17 13:09 Dose: 5,000 unit Dobutamine HCl 250,000 mcg/ (Sodium Chloride) 250 mls @ 24.22 mls/hr IV TITR JEREM[facility]AS; 5 MCG/KG/MIN PRN Reason: Protocol Last Titration: 07/09/17 06:38 Dose: 5.01 mcg/kg/min Furosemide 100 mg/ Dextrose 50 mls @ 2.5 mls/hr IVPB TITR [facility] PRN Reason: 5 MG/HR Last Admin: 07/08/17 12:08 Dose: 2.5 mls/hr Potassium Chloride (Potassium Chloride Oral Liquid) 20 meq PO DAILY [facility] Last Admin: 07/09/17 09:11 Dose: 20 meq Spironolactone (Aldactone -) 12.5 mg PO BID [facility] Last Admin: 07/09/17 09:14 Dose: 12.5 mg Tamsulosin HCl (Flomax -) 0.4 mg PO DAILY@0830 [facility] Last Admin: 07/09/17 09:15 Dose: Not Given Trazodone HCl (Desyrel -) 25 mg PO HS [facility] Last Admin: 07/08/17 22:20 Dose: 25 mg 87 year old male in no distress,no pallor or cyanosis. Vital Signs - 8 hr 07/09/17 07/09/17 07/09/17 14:10 18:25 20:26 Temperature 98.2 F 98.8 F Pulse Rate NECK: Supple 77 74 Respiratory 20 20 20 Rate Blood Pressure 112/74 128/75 O2 Sat by Pulse 98 Oximetry (%) Intake & Output 07/09/17 07/09/17 07/09/17 07:59 15:59 23:59 Intake Total 400 Output Total 550 Balance -550 400 Weight 180 lb 12.8 oz Intake: Oral 200 Oral Supplement 200 Output: Urine 550 Void 550 Other: Voiding Method Urinal Urinal Urinal Bowel Movement No No Weight Measurement Method Standing Scale NECK: Supple, JVD at 30 degrees 1 to 2cm +ve HJR, carotids 2+. HEART: PMI in 5th ICS, no heaves or thrills. DUARTE II/, grade I/ apical systolic murmur, no gallops heard. LUNGS: Clear on auscultation. ABDOMEN: Soft, nontender, no organomegaly or palpable masses. EXTREMITIES: 2+ pedal edema, no calf tenderness. CBC, BMP 07/09/17 05:28 07/09/17 05:28 A: 1. CHF NYHA class II. 2. CAD, S/P NSTEMI, S/P PCI/Stenting. 3. S/P CABG. 4. Acute on CKD. 5. S/P ICD. 6> Hypertension. Recommendations: 1. Continue current therapy. 2. Xray chest. 3. Check BP supine and standing. 4. Daily weight. Prognosis: Guarded.
[2017-07-09] MEDS: ATORVASTATIN CA 10 MG TABLET (FP) PO SCH (22:16)
[2017-07-09] MEDS: traZODone HCL 50 MG TABLET (FP) PO SCH (22:16)
[2017-07-09] MEDS: CARVEDILOL 6.25 MG TABLET (FP) PO SCH (22:16)
[2017-07-10] MEDS: FUROSEMIDE INJECTION 100 MG in DEXTROSE 5%-WATER - 40 ML IVPB SCH (02:48)
[2017-07-10] MEDS: DOBUTAMINE HCL 250,000 MCG in SODIUM CHLORIDE 230 ML IV SCH ×2 (03:01→06:51)
[2017-07-10] MEDS: HEPARIN NA (PORCINE) 5,000 UNITS/ML 1ML VIAL SQ SCH ×2 (06:38→06:51)
[2017-07-10] MEDS: CLOPIDOGREL BISULFATE 75 MG TABLET (FP) PO SCH (06:39)
[2017-07-10] MEDS: CARVEDILOL 3.125 MG TABLET (FP) PO SCH (06:39)
--- NOTE | 2017-07-10 08:19 | PN ---
Teaching Attending Note Name of Resident: Kelsy Red ATTENDING PHYSICIAN STATEMENT I saw and evaluated the patient. I reviewed the resident's note and discussed the case with the resident. I agree with the resident's findings and plan as documented. SUBJECTIVE: Patient is feeling better today, denies shortness of breath. OBJECTIVE: Vital Signs Temperature 98 F 07/10/17 06:00 Pulse Rate 72 07/10/17 06:51 Respiratory Rate 18 07/10/17 06:00 Blood Pressure 126/67 07/10/17 06:51 O2 Sat by Pulse Oximetry (%) 98 07/09/17 20:26 CBCD WBC 3.8 K/mm3 (4.0-10.0) L D 07/09/17 05:28 RBC 3.61 M/mm3 (4.00-5.60) L 07/09/17 05:28 Hgb 10.6 GM/dL (11.7-16.9) L 07/09/17 05:28 Hct 31.9 % (35.4-49) L 07/09/17 05:28 MCV 88.3 fl (80-96) 07/09/17 05:28 MCHC 33.1 g/dl (32.0-35.9) 07/09/17 05:28 RDW 15.9 % (11.9-15.9) 07/09/17 05:28 Plt Count 121 K/MM3 (134-434) L 07/09/17 05:28 MPV 9.7 fl (7.5-11.1) 07/09/17 05:28 CMP Sodium 135 mmol/L (136-145) L 07/09/17 05:28 Potassium 3.9 mmol/L (3.5-5.1) 07/09/17 05:28 Chloride 94 mmol/L (98-107) L 07/09/17 05:28 Carbon Dioxide 29 mmol/L (21-32) 07/09/17 05:28 Anion Gap 12 (8-16) 07/09/17 05:28 BUN 56 mg/dL (7-18) H 07/09/17 05:28 Creatinine 2.8 mg/dL (0.7-1.3) H 07/09/17 05:28 Creat Clearance w eGFR 21.54 (>60) 09/26/17 05:28 Random Glucose 95 mg/dL (74-106) 07/09/17 05:28 Calcium 8.0 mg/dL (8.5-10.1) L 07/09/17 05:28 Total Bilirubin 1.3 mg/dL (0.2-1.0) H D 07/09/17 05:28 AST 12 U/L (15-37) L D 07/09/17 05:28 ALT 19 U/L (12-78) 07/09/17 05:28 Alkaline Phosphatase 94 U/L (45-117) 07/09/17 05:28 Total Protein 6.1 g/dl (6.4-8.2) L 07/09/17 05:28 Albumin 3.2 g/dl (3.4-5.0) L 07/09/17 05:28 CARDIAC ENZYMES Creatine Kinase 81 IU/L (39-308) 07/05/17 16:20 Troponin I 0.12 ng/ml (0.00-0.05) H 07/05/17 16:20 Current Medications Generic Name Dose Route Start Last Admin Trade Name Freq PRN Reason Stop Dose Admin Acetaminophen 650 mg 07/05/17 14:17 07/07/17 17:21 Tylenol - PO 650 mg Q6H PRN Administration FEVER OR PAIN Alprazolam 0.25 mg 07/05/17 22:00 07/09/17 22:16 Xanax - PO 0.25 mg BID [facility] Administration Aspirin 81 mg 07/05/17 10:00 07/09/17 09:15 Ecotrin - PO 81 mg DAILY [facility] Administration Atorvastatin Calcium 10 mg 07/05/17 22:00 07/09/17 22:16 Lipitor - PO 10 mg HS [facility] Administration Buspirone HCl 10 mg 07/05/17 22:00 07/09/17 23:00 Buspar - PO 10 mg BID [facility] Administration Carvedilol 3.125 mg 07/06/17 07:00 07/10/17 06:39 Coreg - PO Not Given DAILY@0700 [facility] Carvedilol 6.25 mg 07/05/17 22:00 07/09/17 22:16 Coreg - PO 6.25 mg DAILY@2200 [facility] Administration Clopidogrel Bisulfate 75 mg 07/05/17 07:00 07/10/17 06:39 Plavix - PO 75 mg AM [facility] Administration Heparin Sodium (Porcine) 5,000 unit 07/05/17 14:00 07/10/17 06:51 Heparin - SQ Not Given TID [facility] Dobutamine HCl 250,000 mcg/ 250 mls @ 24.22 mls/hr 07/07/17 15:00 07/10/17 06: 51 Sodium Chloride IV 26.4 mls/hr TITR [facility]ER[facility] Administration Protocol 5 MCG/KG/MIN Furosemide 100 mg/ Dextrose 50 mls @ 2.5 mls/hr 07/08/17 11:00 07/10/17 02:48 IVPB 2.5 mls/hr TITR [facility] Administration 5 MG/HR Potassium Chloride 20 meq 07/05/17 10:00 07/09/17 09:11 Potassium Chloride Oral Liquid PO 20 meq DAILY [facility] Administration Spironolactone 12.5 mg 07/05/17 10:00 07/09/17 22:16 Aldactone - PO 12.5 mg BID [facility] Administration Tamsulosin HCl 0.4 mg 07/05/17 08:30 07/09/17 09:15 Flomax - PO Not Given DAILY@0830 [facility] Trazodone HCl 25 mg 07/05/17 22:00 07/09/17 22:16 Desyrel - PO 25 mg HS [facility] Administration Home Medications Medication Instructions Recorded Carvedilol 6.25 mg PO BID 05/24/17 Simvastatin 20 mg PO HS 06/10/17 Bacitracin - [Bacitracin Topical 1 applic TP BID #1 tube 06/21/17 Ointment -] Clopidogrel Bisulfate [Plavix -] 75 mg PO AM #30 tab 06/21/17 Ciprofloxacin 0.3% Eye Drops 4 drop NR BID 06/27/17 [Ciloxan 0.3% Eye Drops -] Potassium Chloride 20 meq PO DAILY 06/27/17 Aspirin [Ecotrin] 81 mg PO DAILY #30 tablet. 06/30/17 Spironolactone [Aldactone -] 12.5 mg PO BID #60 tablet 06/30/17 Tamsulosin HCl [Flomax -] 0.4 mg PO HS #30 cap 06/30/17 Torsemide [Demadex -] 20 mg PO DAILY #30 tablet 06/30/17 Trazodone HCl [Desyrel -] 25 mg PO HS tablet 06/30/17 PE: nice gentleman, NAD Chest: decreased BS BL Heart: S1S2 positive abdomen: soft, NT, extremities: pulses are positive, edema 1 plus improving rest of PE per resident's. ASSESSMENT AND PLAN: 87 y/o man with h/o CAD, S/p CABG, recent stenting, AICD placement , HTN, HL, and other medical problems who presented with worsening SOB and was found to have acute CHF exacerbation # Acute on chronic Systolic and diastolic CHF: due to non compliance . On dobutamine and Lasix drip will continue. Coreg chnaged to 3.125mg po am and 6.25mg pm, daily weight and I's and O's. Intermittent doses of Metolazone as needed as per # HTN:controlled on coreg and Lasix, discontinued imdur due to having headache on last admission. # H/O CAD: cont BB and ASA/Plavix # CKD :Cr stabilized on lasix and dobutamine gtt # Anxiety: placed the patient on Buspar. dvt pX: hEPARIN
[2017-07-10] MEDS: TAMSULOSIN HCL 0.4 MG CAP.ER.24H (FP) PO SCH (09:00)
[2017-07-10] MEDS ORDERED: PT OWN MED DRAWER 7, Y5N ONE ×2 (09:35→21:09)
[2017-07-10 09:52] LABS: CREATININE 2.6 mg/dL (0.7-1.3); GLUCOSE,RANDOM 95 mg/dL (74-106)
[2017-07-10 09:53] LABS: ANION GAP 10 (8-16); CO2 29 mmol/L (21-32)
[2017-07-10] MEDS: SPIRONOLACTONE 25 MG TABLET (FP) PO SCH ×2 (09:56→21:10)
[2017-07-10] MEDS: ASPIRIN COATED 81 MG TABLET.EC PO SCH (09:56)
[2017-07-10] MEDS: ALPRAZolam 0.25 MG TABLET PO SCH ×2 (09:56→21:11)
[2017-07-10] MEDS: POTASSIUM CHLORIDE ORAL LIQUID 20 MEQ/15 ML PO SCH (09:57)
[2017-07-10] MEDS: busPIRone HCL 10 MG TABLET (FP) PO SCH ×2 (09:57→21:21)
--- NOTE | 2017-07-10 11:11 | PN ---
Progress Note, Physician History of Present Illness: pulmonary alert,less dyspnec - Current Medication List Current Medications: Active Medications Acetaminophen (Tylenol -) 650 mg PO Q6H PRN PRN Reason: FEVER OR PAIN Last Admin: 07/07/17 17:21 Dose: 650 mg Alprazolam (Xanax -) 0.25 mg PO BID [facility]EDS AT [facility] Last Admin: 07/10/17 09:56 Dose: 0.25 mg Aspirin (Ecotrin -) 81 mg PO DAILY [facility] 234 B[facility]S AT [facility] Last Admin: 07/10/17 09:56 Dose: 81 mg Atorvastatin Calcium (Lipitor -) 10 mg PO HS [facility] 234 B[facility]S AT [facility] Last Admin: 07/09/17 22:16 Dose: 10 mg Buspirone HCl (Buspar -) 10 mg PO BID [facility] 234 [facility]S AT [facility] Last Admin: 07/10/17 09:57 Dose: 10 mg Carvedilol (Coreg -) 3.125 mg PO DAILY@0700 [facility] 234 B[facility]S AT [facility] Last Admin: 07/10/17 06:39 Dose: Not Given Carvedilol (Coreg -) 6.25 mg PO DAILY@2200 [facility] 234 BEDS AT [facility] Last Admin: 07/09/17 22:16 Dose: 6.25 mg Clopidogrel Bisulfate (Plavix -) 75 mg PO AM [facility] 234 B[facility]S AT [facility] Last Admin: 07/10/17 06:39 Dose: 75 mg Heparin Sodium (Porcine) (Heparin -) 5,000 unit SQ TID [facility] 234 B[facility]S AT [facility] Last Admin: 07/10/17 06:51 Dose: Not Given Dobutamine HCl 250,000 mcg/ (Sodium Chloride) 250 mls @ 24.22 mls/hr IV TITR [facility] 234 BEDS AT [facility]; 5 MCG/KG/MIN PRN Reason: Protocol Last Admin: 07/10/17 06:51 Dose: 26.4 mls/hr Furosemide 100 mg/ Dextrose 50 mls @ 2.5 mls/hr IVPB TITR JEREMÍAS PRN Reason: 5 MG/HR Last Admin: 07/10/17 02:48 Dose: 2.5 mls/hr Potassium Chloride (Potassium Chloride Oral Liquid) 20 meq PO DAILY [facility] 234 B[facility]S AT [facility] Last Admin: 07/10/17 09:57 Dose: 20 meq Spironolactone (Aldactone -) 12.5 mg PO BID [facility] 234 B[facility]S AT [facility] Last Admin: 07/10/17 09:56 Dose: 12.5 mg Tamsulosin HCl (Flomax -) 0.4 mg PO DAILY@0830 [facility] 234 [facility]S AT [facility] Last Admin: 07/10/17 09:00 Dose: Not Given Trazodone HCl (Desyrel -) 25 mg PO HS [facility] 234 [facility]S [facility] Last Admin: 07/09/17 22:16 Dose: 25 mg - Objective Vital Signs: Vital Signs Temperature 98 F 07/10/17 06:00 Pulse Rate 72 07/10/17 06:51 Respiratory Rate 18 07/10/17 06:00 Blood Pressure 126/67 07/10/17 06:51 O2 Sat by Pulse Oximetry (%) 98 07/09/17 20:26 Constitutional: Yes: No Distress, Calm Eyes: Yes: WNL HENT: Yes: WNL Neck: Yes: WNL Cardiovascular: Yes: Regular Rate and Rhythm, S1, S2 Respiratory: Yes: Rales (jose raul crackles 1/3 up) Gastrointestinal: Yes: Normal Bowel Sounds, Soft Extremities: Yes: WNL Edema: Yes Labs: CBC, BMP 07/10/17 06:00 Problem List - Problems (1) Acute exacerbation of CHF (congestive heart failure) Code(s): I50.9 - HEART FAILURE, UNSPECIFIED Qualifiers: Congestive heart failure type: systolic Qualified Code(s): I50.23 - Acute on chronic systolic (congestive) heart failure (2) Orthopnea Code(s): R06.01 - ORTHOPNEA (3) SOB (shortness of breath) Code(s): R06.02 - SHORTNESS OF BREATH (4) CAD (coronary artery disease) Code(s): I25.10 - ATHSCL HEART DISEASE OF [place] CORONARY ARTERY W/O ANG PCTRS (5) Chronic kidney disease (CKD) stage G3a/A2, moderately decreased glomerular filtration rate (GFR) between 45-59 mL/min/1.73 square meter and albuminuria creatinine ratio between 30-299 mg/g Code(s): N18.3 - CHRONIC KIDNEY DISEASE, STAGE 3 (MODERATE) (6) Weakness Code(s): R53.1 - WEAKNESS (7) Hypertension Code(s): I10 - ESSENTIAL (PRIMARY) HYPERTENSION Assessment/Plan IMP ACUTE ON CHRONIC CHF SECONDARY TO NON-COMPLIANCE ASHD S/P CABG,STENT ICD S/P NSTEMI CKD COPD HTN HLD PLAN DIURETICS,DOBUTAMINE DRIP O2 DAILY WTS MONITOR LYTES,RENAL FUNCTION DR ANGELA Problem List - Problems (1) Acute exacerbation of CHF (congestive heart failure) Code(s): I50.9 - HEART FAILURE, UNSPECIFIED Qualifiers: Congestive heart failure type: systolic Qualified Code(s): I50.23 - Acute on chronic systolic (congestive) heart failure (2) Orthopnea Code(s): R06.01 - ORTHOPNEA (3) SOB (shortness of breath) Code(s): R06.02 - SHORTNESS OF BREATH (4) CAD (coronary artery disease) Code(s): I25.10 - ATHSCL HEART DISEASE OF [place] CORONARY ARTERY W/O ANG PCTRS (5) Chronic kidney disease (CKD) stage G3a/A2, moderately decreased glomerular filtration rate (GFR) between 45-59 mL/min/1.73 square meter and albuminuria creatinine ratio between 30-299 mg/g Code(s): N18.3 - CHRONIC KIDNEY DISEASE, STAGE 3 (MODERATE) (6) Weakness Code(s): R53.1 - WEAKNESS (7) Hypertension Code(s): I10 - ESSENTIAL (PRIMARY) HYPERTENSION
--- NOTE | 2017-07-10 14:32 | PN ---
Physical Exam: SUBJECTIVE: Patient seen and examined. No acute events overnight. Patient says he feels much better today without SOB. He denies dizziness, nausea, vomiting, and fever. OBJECTIVE: Vital Signs Period Temp Pulse Resp BP Sys/العلي Pulse Ox Last 24 Hr 97.6 F-98.8 F 70-82 18-20 120-135/62-86 96-98 GENERAL: The patient is awake, alert, and fully oriented, in no acute distress. HEAD: Normal with no signs of trauma. NECK: supple. LUNGS: crackles throughout, no wheezing HEART: + JVD, Regular rate and rhythm, S1, S2 without murmur, rub or gallop. ABDOMEN: Soft, nontender, nondistended, normoactive bowel sounds, no guarding, no rebound, no hepatosplenomegaly, no masses. EXTREMITIES: 2+ pulses, B/L LE 2+ edema (showing improvement) PSYCH: Normal mood, normal affect. Laboratory Results - last 24 hr 07/10/17 06:00 Sodium 137 Potassium 3.6 Chloride 98 Carbon Dioxide 29 Anion Gap 10 BUN 49 H Creatinine 2.6 H Random Glucose 95 Calcium 8.0 L Active Medications Generic Name Dose Route Start Last Admin Trade Name Freq PRN Reason Stop Dose Admin Acetaminophen 650 mg 07/05/17 14:17 07/07/17 17:21 Tylenol - PO 650 mg Q6H PRN Administration FEVER OR PAIN Alprazolam 0.25 mg 07/05/17 22:00 07/10/17 09:56 Xanax - PO 0.25 mg BID [facility] Administration Aspirin 81 mg 07/05/17 10:00 07/10/17 09:56 Ecotrin - PO 81 mg DAILY [facility] Administration Atorvastatin Calcium 10 mg 07/05/17 22:00 07/09/17 22:16 Lipitor - PO 10 mg HS [facility] Administration Buspirone HCl 10 mg 07/05/17 22:00 07/10/17 09:57 Buspar - PO 10 mg BID [facility] Administration Carvedilol 3.125 mg 07/06/17 07:00 07/10/17 06:39 Coreg - PO Not Given DAILY@0700 [facility] Carvedilol 6.25 mg 07/05/17 22:00 07/09/17 22:16 Coreg - PO 6.25 mg DAILY@2200 [facility] Administration Clopidogrel Bisulfate 75 mg 07/05/17 07:00 07/10/17 06:39 Plavix - PO 75 mg AM [facility] Administration Dobutamine HCl 250,000 mcg/ 250 mls @ 24.22 mls/hr 07/07/17 15:00 07/10/17 06: 51 Sodium Chloride IV 26.4 mls/hr TITR JER[facility] Administration Protocol 5 MCG/KG/MIN Furosemide 100 mg/ Dextrose 50 mls @ 2.5 mls/hr 07/08/17 11:00 07/10/17 02:48 IVPB 2.5 mls/hr TITR [facility] Administration 5 MG/HR Potassium Chloride 20 meq 07/05/17 10:00 07/10/17 09:57 Potassium Chloride Oral Liquid PO 20 meq DAILY [facility] Administration Spironolactone 12.5 mg 07/05/17 10:00 07/10/17 09:56 Aldactone - PO 12.5 mg BID [facility] Administration Tamsulosin HCl 0.4 mg 07/05/17 08:30 07/10/17 09:00 Flomax - PO Not Given DAILY@0830 [facility] Trazodone HCl 25 mg 07/05/17 22:00 07/09/17 22:16 Desyrel - PO 25 mg HS [facility] Administration ASSESSMENT/PLAN: 87M with h/o CAD, S/p CABG, recent stenting, AICD placement , HTN, HLD , presents to the hospital with acute on chronic left sided systolic heart failure with SOB. #Acute on chronic CHF left sided systolic exacerbation: (due to noncompliance) -less crackles on physical today -continue dobutamine drip -strict ins and outs, daily weights -BUN/Creatinine at baseline -Continue Lasix drip -Continue Coreg to 3.125 in am and 6.25 in evening -Stopped Torsemide -continue spironolactone #Anxiety/Claustrophobia -started Buspar 10mg BID - Xanax .25prn BID #CAD: see above - Atorvastatin 10mg -Aspirin 81mg -Plavix 75mg #HTN: -Continue Coreg #CKD: Creatinine at baseline will continue to trend and monitor #Anxiety/Insomnia -Continue Trazodone #BPH: restart home dose of flomax at .4mg in evenings #FEN: Not on IV Fluids sodium controlled diet #PPx: Held Heparin because of minor bleeding site of heparin injection in abdomen. no GI PPx indicated Visit type - Emergency Visit Emergency Visit: Yes ED Registration Date: 07/05/17 Care time: The patient presented to the Emergency Department on the above date and was hospitalized for further evaluation of their emergent condition. - New Patient This patient is new to me today: No - Critical Care Critical Care patient: No
--- NOTE | 2017-07-10 19:44 | PN ---
Progress Note (short form) - Note Progress Note: S:Patient feels better,denies SOB,no PND, pedal edema persists.Appetite has improved, no chest pain or discomfort reported. Active Medications Generic Name Dose Route Start Last Admin Trade Name Frelavon PRN Reason Stop Dose Admin Acetaminophen 650 mg 07/05/17 14:17 07/07/17 17:21 Tylenol - PO 650 mg Q6H PRN Administration FEVER OR PAIN Alprazolam 0.25 mg 07/05/17 22:00 07/10/17 09:56 Xanax - PO 0.25 mg BID [facility] Administration Aspirin 81 mg 07/05/17 10:00 07/10/17 09:56 Ecotrin - PO 81 mg DAILY [facility] Administration Atorvastatin Calcium 10 mg 07/05/17 22:00 07/09/17 22:16 Lipitor - PO 10 mg HS [facility] Administration Buspirone HCl 10 mg 07/05/17 22:00 07/10/17 09:57 Buspar - PO 10 mg BID [facility] Administration Carvedilol 3.125 mg 07/06/17 07:00 07/10/17 06:39 Coreg - PO Not Given DAILY@0700 [facility] Carvedilol 6.25 mg 07/05/17 22:00 07/09/17 22:16 Coreg - PO 6.25 mg DAILY@2200 [facility] Administration Clopidogrel Bisulfate 75 mg 07/05/17 07:00 07/10/17 06:39 Plavix - PO 75 mg AM [facility] Administration Dobutamine HCl 250,000 mcg/ 250 mls @ 24.22 mls/hr 07/07/17 15:00 07/10/17 06: 51 Sodium Chloride IV 26.4 mls/hr TITR [facility] Administration Protocol 5 MCG/KG/MIN Furosemide 100 mg/ Dextrose 50 mls @ 2.5 mls/hr 07/08/17 11:00 07/10/17 02:48 IVPB 2.5 mls/hr TITR [facility] Administration 5 MG/HR Potassium Chloride 20 meq 07/05/17 10:00 07/10/17 09:57 Potassium Chloride Oral Liquid PO 20 meq DAILY [facility] Administration Spironolactone 12.5 mg 07/05/17 10:00 07/10/17 09:56 Aldactone - PO 12.5 mg BID [facility] Administration Tamsulosin HCl 0.4 mg 07/05/17 08:30 07/10/17 09:00 Flomax - PO Not Given DAILY@0830 [facility] Trazodone HCl 25 mg 07/05/17 22:00 07/09/17 22:16 Desyrel - PO 25 mg HS [facility] Administration Patient is in no distress, no pallor or cyanosis. Vital Signs - 8 hr 07/10/17 07/10/17 14:09 17:00 Temperature 97.6 F 97.3 F L Pulse Rate 82 75 Respiratory 18 20 Rate Blood Pressure 120/62 131/69 Intake & Output 07/07/17 07/08/17 07/09/17 07/10/17 23:59 23:59 23:59 23:59 Intake Total 200 600 500 278 Output Total 300 636 7519 Balance 200 0 -50 -1422 Weight 178 lb 178 lb 180 lb 12.8 oz 179 lb 4 oz NECK: Supple,+ve HJR.Carotids 2+, no bruits heard. HEART: PMI in 5th ICS, no heaves or thrills. DUARTE II/, grade I/ apical systolic murmur, no gallops heard. LUNGS: Clear on auscultation. ABDOMEN: Soft, nontender, no organomegaly or palpable masses. EXTREMITIES: 2+ pedal edema, no calf tenderness. CBC, BMP 07/09/17 05:28 07/10/17 06:00 A: 1. CHF NYHA class II. 2. CAD, S/P NSTEMI, S/P PCI/Stenting. 3. S/P CABG. 4. Acute on CKD. 5. S/P ICD. 6. Hypertension. Recommendations: 1. Continue current therapy. 2. Advised to elevate his legs when he is sitting in a chair. 3. Check BP supine and standing. 4. bedside echocardiogram. Prognosis: Guarded.
[2017-07-10] MEDS: CARVEDILOL 6.25 MG TABLET (FP) PO SCH (21:10)
[2017-07-10] MEDS: traZODone HCL 50 MG TABLET (FP) PO SCH (21:11)
[2017-07-10] MEDS: ATORVASTATIN CA 10 MG TABLET (FP) PO SCH (21:11)
[2017-07-11] MEDS: DOBUTAMINE HCL 250,000 MCG in SODIUM CHLORIDE 230 ML IV SCH ×2 (03:17→16:25)
[2017-07-11] MEDS: CLOPIDOGREL BISULFATE 75 MG TABLET (FP) PO SCH (06:02)
[2017-07-11] MEDS: CARVEDILOL 3.125 MG TABLET (FP) PO SCH (06:02)
[2017-07-11 09:21] LABS: ANION GAP 12 (8-16); CO2 29 mmol/L (21-32); CREATININE 2.4 mg/dL (0.7-1.3); GLUCOSE,RANDOM 117 mg/dL (74-106)
[2017-07-11] MEDS: SPIRONOLACTONE 25 MG TABLET (FP) PO SCH ×2 (10:09→21:23)
[2017-07-11] MEDS: POTASSIUM CHLORIDE ORAL LIQUID 20 MEQ/15 ML PO SCH (10:10)
[2017-07-11] MEDS: ALPRAZolam 0.25 MG TABLET PO SCH ×2 (10:10→21:23)
[2017-07-11] MEDS: busPIRone HCL 10 MG TABLET (FP) PO SCH ×2 (10:10→21:22)
[2017-07-11] MEDS: TAMSULOSIN HCL 0.4 MG CAP.ER.24H (FP) PO SCH (10:12)
[2017-07-11] MEDS: ASPIRIN COATED 81 MG TABLET.EC PO SCH (10:13)
--- NOTE | 2017-07-11 12:25 | PN ---
Physical Exam: SUBJECTIVE: Patient seen and examined. Offers no new complaints. He said he feels much better today with no SOB and weakness. He said he is able to walk on his own today without any weakness. He denies chest pain, headache, sob, nausea , vomiting, and weakness. OBJECTIVE: Vital Signs Period Temp Pulse Resp BP Sys/العلي Pulse Ox Last 24 Hr 97.3 F-98.2 F 71-82 18-20 120-172/57-74 96 GENERAL: The patient is awake, alert, and fully oriented, in no acute distress. HEAD: Normal with no signs of trauma. NECK: supple. LUNGS: minimal crackles, no wheezing HEART: + JVD, Regular rate and rhythm, S1, S2 without murmur, rub or gallop. ABDOMEN: Soft, nontender, nondistended, normoactive bowel sounds, no guarding, no rebound, no hepatosplenomegaly, no masses. EXTREMITIES: 2+ pulses, B/L LE 2+ edema (showing significant improvement) PSYCH: Normal mood, normal affect. Laboratory Results - last 24 hr 07/11/17 08:15 Sodium 137 Potassium 3.7 Chloride 96 L Carbon Dioxide 29 Anion Gap 12 BUN 42 H Creatinine 2.4 H Random Glucose 117 H D Calcium 8.0 L Active Medications Generic Name Dose Route Start Last Admin Trade Name Yovaniq PRN Reason Stop Dose Admin Acetaminophen 650 mg 07/05/17 14:17 07/07/17 17:21 Tylenol - PO 650 mg Q6H PRN Administration FEVER OR PAIN Alprazolam 0.25 mg 07/05/17 22:00 07/11/17 10:10 Xanax - PO 0.25 mg BID [facility] Administration Aspirin 81 mg 07/05/17 10:00 07/11/17 10:13 Ecotrin - PO 81 mg DAILY [facility] Administration Atorvastatin Calcium 10 mg 07/05/17 22:00 07/10/17 21:11 Lipitor - PO 10 mg HS [facility] Administration Buspirone HCl 10 mg 07/05/17 22:00 07/11/17 10:10 Buspar - PO 10 mg BID [facility] Administration Carvedilol 3.125 mg 07/06/17 07:00 07/11/17 06:02 Coreg - PO 3.125 mg DAILY@0700 [facility] Administration Carvedilol 6.25 mg 07/05/17 22:00 07/10/17 21:10 Coreg - PO 6.25 mg DAILY@2200 [facility] Administration Clopidogrel Bisulfate 75 mg 07/05/17 07:00 07/11/17 06:02 Plavix - PO 75 mg AM [facility] Administration Dobutamine HCl 250,000 mcg/ 250 mls @ 24.22 mls/hr 07/07/17 15:00 07/11/17 03: 17 Sodium Chloride IV 24.3 mls/hr TITR [facility] Administration Protocol 5 MCG/KG/MIN Furosemide 100 mg/ Dextrose 50 mls @ 2.5 mls/hr 07/08/17 11:00 07/10/17 02:48 IVPB 2.5 mls/hr TITR JEREMÍAS Administration 5 MG/HR Potassium Chloride 20 meq 07/05/17 10:00 07/11/17 10:10 Potassium Chloride Oral Liquid PO 20 meq DAILY JEREMÍAS Administration Spironolactone 12.5 mg 07/05/17 10:00 07/11/17 10:09 Aldactone - PO 12.5 mg BID JEREMÍAS Administration Tamsulosin HCl 0.4 mg 07/05/17 08:30 07/11/17 10:12 Flomax - PO Not Given DAILY@0830 JEREMÍAS Trazodone HCl 25 mg 07/05/17 22:00 07/10/17 21:11 Desyrel - PO 25 mg HS JEREMÍAS Administration ASSESSMENT/PLAN: 87M with h/o CAD, S/p CABG, recent stenting, AICD placement , HTN, HLD , presents to the hospital with acute on chronic left sided systolic heart failure with SOB. #Acute on chronic CHF left sided systolic exacerbation: (due to noncompliance) -less crackles on physical today -continue dobutamine drip -strict ins and outs, daily weights -BUN/Creatinine at baseline -Continue Lasix drip -Continue Coreg to 3.125 in am and 6.25 in evening -Stopped Torsemide -continue spironolactone #Anxiety/Claustrophobia -started Buspar 10mg BID - Xanax .25prn BID #CAD: see above - Atorvastatin 10mg -Aspirin 81mg -Plavix 75mg #HTN: -Continue Coreg #CKD: Creatinine at baseline will continue to trend and monitor #Anxiety/Insomnia -Continue Trazodone #BPH: restart home dose of flomax at .4mg in evenings #FEN: Not on IV Fluids sodium controlled diet #PPx: Held Heparin because of minor bleeding site of heparin injection in abdomen. no GI PPx indicated Visit type - Emergency Visit Emergency Visit: Yes ED Registration Date: 07/05/17 Care time: The patient presented to the Emergency Department on the above date and was hospitalized for further evaluation of their emergent condition. - New Patient This patient is new to me today: No - Critical Care Critical Care patient: No
--- NOTE | 2017-07-11 16:17 | PN ---
Progress Note (short form) - Note Progress Note: Appears less SOB. No CP. Some dry cough. Intake & Output 07/08/17 07/09/17 07/10/17 07/11/17 23:59 23:59 23:59 23:59 Intake Total 600 500 478 820 Output Total 082 567 6943 1550 Balance 0 -50 -1522 -730 Weight 178 lb 180 lb 12.8 oz 179 lb 4 oz 179 lb 4 oz Last Vital Signs Temp Pulse Resp BP Pulse Ox 97.6 F 73 18 111/66 95 07/11/17 14:00 07/11/17 14:00 07/11/17 14:00 07/11/17 14:00 07/11/17 09:00 Active Medications Acetaminophen (Tylenol -) 650 mg PO Q6H PRN PRN Reason: FEVER OR PAIN Last Admin: 07/07/17 17:21 Dose: 650 mg Alprazolam (Xanax -) 0.25 mg PO BID [facility] Last Admin: 07/11/17 10:10 Dose: 0.25 mg Aspirin (Ecotrin -) 81 mg PO DAILY [facility] Last Admin: 07/11/17 10:13 Dose: 81 mg Atorvastatin Calcium (Lipitor -) 10 mg PO HS [facility] Last Admin: 07/10/17 21:11 Dose: 10 mg Buspirone HCl (Buspar -) 10 mg PO BID [facility] Last Admin: 07/11/17 10:10 Dose: 10 mg Carvedilol (Coreg -) 3.125 mg PO DAILY@0700 [facility] Last Admin: 07/11/17 06:02 Dose: 3.125 mg Carvedilol (Coreg -) 6.25 mg PO DAILY@2200 [facility] Last Admin: 07/10/17 21:10 Dose: 6.25 mg Clopidogrel Bisulfate (Plavix -) 75 mg PO AM [facility] Last Admin: 07/11/17 06:02 Dose: 75 mg Dobutamine HCl 250,000 mcg/ (Sodium Chloride) 250 mls @ 24.22 mls/hr IV TITR JEREMÍAS; 5 MCG/KG/MIN PRN Reason: Protocol Last Admin: 07/11/17 03:17 Dose: 24.3 mls/hr Furosemide 100 mg/ Dextrose 50 mls @ 2.5 mls/hr IVPB TITR JEREMÍAS PRN Reason: 5 MG/HR Last Admin: 07/10/17 02:48 Dose: 2.5 mls/hr Potassium Chloride (Potassium Chloride Oral Liquid) 20 meq PO DAILY [facility] Last Admin: 07/11/17 10:10 Dose: 20 meq Spironolactone (Aldactone -) 12.5 mg PO BID [facility] Last Admin: 07/11/17 10:09 Dose: 12.5 mg Tamsulosin HCl (Flomax -) 0.4 mg PO DAILY@0830 [facility] Last Admin: 07/11/17 10:12 Dose: Not Given Trazodone HCl (Desyrel -) 25 mg PO [facility] Last Admin: 07/10/17 21:11 Dose: 25 mg Constitutional: Yes: NAD Eyes: Yes: WNL HENT: Yes: WNL Neck: Yes: WNL Cardiovascular: Yes: Regular Rate and Rhythm, S1, S2 Respiratory: Yes: Bibasilar Rales Gastrointestinal: Yes: Normal Bowel Sounds, Soft Extremities: Yes: WNL Edema: Yes Labs: Laboratory Results - last 24 hr 07/11/17 08:15 Sodium 137 Potassium 3.7 Chloride 96 L Carbon Dioxide 29 Anion Gap 12 BUN 42 H Creatinine 2.4 H Random Glucose 117 H D Calcium 8.0 L Problem List - Problems (1) Acute exacerbation of CHF (congestive heart failure) Code(s): I50.9 - HEART FAILURE, UNSPECIFIED Qualifiers: Congestive heart failure type: systolic Qualified Code(s): I50.23 - Acute on chronic systolic (congestive) heart failure (2) Orthopnea Code(s): R06.01 - ORTHOPNEA (3) SOB (shortness of breath) Code(s): R06.02 - SHORTNESS OF BREATH (4) CAD (coronary artery disease) Code(s): I25.10 - ATHSCL HEART DISEASE OF [place] CORONARY ARTERY W/O ANG PCTRS (5) Chronic kidney disease (CKD) stage G3a/A2, moderately decreased glomerular filtration rate (GFR) between 45-59 mL/min/1.73 square meter and albuminuria creatinine ratio between 30-299 mg/g Code(s): N18.3 - CHRONIC KIDNEY DISEASE, STAGE 3 (MODERATE) (6) Weakness Code(s): R53.1 - WEAKNESS (7) Hypertension Code(s): I10 - ESSENTIAL (PRIMARY) HYPERTENSION Assessment/Plan IMP ACUTE ON CHRONIC CHF SECONDARY TO NON-COMPLIANCE ASHD S/P CABG,STENT ICD S/P NSTEMI CKD COPD HTN HLD PLAN DIURETICS,DOBUTAMINE DRIP O2 DAILY WTS MONITOR LYTES,RENAL FUNCTION DR NEWBY
--- NOTE | 2017-07-11 19:29 | PN ---
Teaching Attending Note Name of Resident: Kelsy Red ATTENDING PHYSICIAN STATEMENT I saw and evaluated the patient. I reviewed the resident's note and discussed the case with the resident. I agree with the resident's findings and plan as documented. SUBJECTIVE: Patient is c/o being drowsy after taking the Buspar in the morning. OBJECTIVE: Vital Signs Temperature 97.4 F L 07/11/17 17:00 Pulse Rate 75 07/11/17 17:00 Respiratory Rate 20 07/11/17 17:00 Blood Pressure 119/65 07/11/17 17:00 O2 Sat by Pulse Oximetry (%) 95 07/11/17 09:00 CBCD WBC 3.8 K/mm3 (4.0-10.0) L D 07/09/17 05:28 RBC 3.61 M/mm3 (4.00-5.60) L 07/09/17 05:28 Hgb 10.6 GM/dL (11.7-16.9) L 07/09/17 05:28 Hct 31.9 % (35.4-49) L 07/09/17 05:28 MCV 88.3 fl (80-96) 07/09/17 05:28 MCHC 33.1 g/dl (32.0-35.9) 07/09/17 05:28 RDW 15.9 % (11.9-15.9) 07/09/17 05:28 Plt Count 121 K/MM3 (134-434) L 07/09/17 05:28 MPV 9.7 fl (7.5-11.1) 07/09/17 05:28 CMP Sodium 137 mmol/L (136-145) 07/11/17 08:15 Potassium 3.7 mmol/L (3.5-5.1) 07/11/17 08:15 Chloride 96 mmol/L (98-107) L 07/11/17 08:15 Carbon Dioxide 29 mmol/L (21-32) 07/11/17 08:15 Anion Gap 12 (8-16) 07/11/17 08:15 BUN 42 mg/dL (7-18) H 07/11/17 08:15 Creatinine 2.4 mg/dL (0.7-1.3) H 07/11/17 08:15 Creat Clearance w eGFR 21.54 (>60) 07/09/17 05:28 Random Glucose 117 mg/dL (74-106) H D 07/11/17 08:15 Calcium 8.0 mg/dL (8.5-10.1) L 07/11/17 08:15 Total Bilirubin 1.3 mg/dL (0.2-1.0) H D 07/09/17 05:28 AST 12 U/L (15-37) L D 07/09/17 05:28 ALT 19 U/L (12-78) 07/09/17 05:28 Alkaline Phosphatase 94 U/L (45-117) 07/09/17 05:28 Total Protein 6.1 g/dl (6.4-8.2) L 07/09/17 05:28 Albumin 3.2 g/dl (3.4-5.0) L 07/09/17 05:28 CARDIAC ENZYMES Creatine Kinase 81 IU/L (39-308) 07/05/17 16:20 Troponin I 0.12 ng/ml (0.00-0.05) H 07/05/17 16:20 Current Medications Generic Name Dose Route Start Last Admin Trade Name Freq PRN Reason Stop Dose Admin Acetaminophen 650 mg 07/05/17 14:17 07/07/17 17:21 Tylenol - PO 650 mg Q6H PRN Administration FEVER OR PAIN Alprazolam 0.25 mg 07/05/17 22:00 07/11/17 10:10 Xanax - PO 0.25 mg BID JEREMÍAS Administration Aspirin 81 mg 07/05/17 10:00 07/11/17 10:13 Ecotrin - PO 81 mg DAILY JEREMÍAS Administration Atorvastatin Calcium 10 mg 07/05/17 22:00 07/10/17 21:11 Lipitor - PO 10 mg HS JEREMÍAS Administration Buspirone HCl 10 mg 07/05/17 22:00 07/11/17 10:10 Buspar - PO 10 mg BID JEREMÍAS Administration Carvedilol 3.125 mg 07/06/17 07:00 07/11/17 06:02 Coreg - PO 3.125 mg DAILY@0700 JEREMÍAS Administration Carvedilol 6.25 mg 07/05/17 22:00 07/10/17 21:10 Coreg - PO 6.25 mg DAILY@2200 JEREMÍAS Administration Clopidogrel Bisulfate 75 mg 07/05/17 07:00 07/11/17 06:02 Plavix - PO 75 mg AM JEREMÍAS Administration Dobutamine HCl 250,000 mcg/ 250 mls @ 24.22 mls/hr 07/07/17 15:00 07/11/17 16: 25 Sodium Chloride IV 24.3 mls/hr TITR JEREMÍAS Administration Protocol 5 MCG/KG/MIN Furosemide 100 mg/ Dextrose 50 mls @ 2.5 mls/hr 07/08/17 11:00 07/10/17 02:48 IVPB 2.5 mls/hr TITR JEREMÍAS Administration 5 MG/HR Potassium Chloride 20 meq 07/05/17 10:00 07/11/17 10:10 Potassium Chloride Oral Liquid PO 20 meq DAILY JER[facility] Administration Spironolactone 12.5 mg 07/05/17 10:00 07/11/17 10:09 Aldactone - PO 12.5 mg BID JEREMÍAS Administration Tamsulosin HCl 0.4 mg 07/05/17 08:30 07/11/17 10:12 Flomax - PO Not Given DAILY@0830 JEREMÍAS Trazodone HCl 25 mg 07/05/17 22:00 07/10/17 21:11 Desyrel - PO 25 mg HS JEREMÍAS Administration Home Medications Medication Instructions Recorded Carvedilol 6.25 mg PO BID 05/24/17 Simvastatin 20 mg PO HS 06/10/17 Bacitracin - [Bacitracin Topical 1 applic TP BID #1 tube 06/21/17 Ointment -] Clopidogrel Bisulfate [Plavix -] 75 mg PO AM #30 tab 06/21/17 Ciprofloxacin 0.3% Eye Drops 4 drop NR BID 06/27/17 [Ciloxan 0.3% Eye Drops -] Potassium Chloride 20 meq PO DAILY 06/27/17 Aspirin [Ecotrin] 81 mg PO DAILY #30 tablet. 06/30/17 Spironolactone [Aldactone -] 12.5 mg PO BID #60 tablet 06/30/17 Tamsulosin HCl [Flomax -] 0.4 mg PO HS #30 cap 06/30/17 Torsemide [Demadex -] 20 mg PO DAILY #30 tablet 06/30/17 Trazodone HCl [Desyrel -] 25 mg PO HS tablet 06/30/17 PE: looks drowsy rest of PE per resident's note ASSESSMENT AND PLAN: Patient is an 87 y/o man with h/o CAD, S/p CABG, recent stenting, AICD placement , HTN, HL, and other medical problems who presented with worsening SOB and was found to have acute CHF exacerbation. # Acute Lethargy due to Buspar given during morning hours, will change the dose to PM and will change to 5mg from 10mg. # Acute on chronic Systolic and diastolic CHF: due to non compliance . will continue dobutamine and Lasix drip for now . Coreg changed to 3.125mg po am and 6.25mg pm, daily weight and I's and O's. Intermittent doses of Metolazone as needed as per # HTN:controlled on coreg and Lasix, discontinued imdur due to having headache on last admission. # H/O CAD: cont BB and ASA/Plavix # CKD :Cr stabilized on lasix and dobutamine gtt # Anxiety: placed the patient on Buspar. dvt pX: hEPARIN
[2017-07-11] MEDS: CARVEDILOL 6.25 MG TABLET (FP) PO SCH (21:19)
[2017-07-11] MEDS: traZODone HCL 50 MG TABLET (FP) PO SCH (21:22)
[2017-07-11] MEDS: FUROSEMIDE INJECTION 100 MG in DEXTROSE 5%-WATER - 40 ML IVPB SCH (21:23)
[2017-07-11] MEDS: ATORVASTATIN CA 10 MG TABLET (FP) PO SCH (21:23)
[2017-07-12] MEDS ORDERED: DOBUTAMINE HCL 250,000 MCG in SODIUM CHLORIDE 230 ML IV SCH (06:15)
[2017-07-12] MEDS: CARVEDILOL 3.125 MG TABLET (FP) PO SCH ×2 (07:08→10:27)
[2017-07-12] MEDS: CLOPIDOGREL BISULFATE 75 MG TABLET (FP) PO SCH ×2 (07:08→10:27)
[2017-07-12 08:25] LABS: ANION GAP 10 (8-16); CO2 31 mmol/L (21-32); CREATININE 2.2 mg/dL (0.7-1.3); GLUCOSE,RANDOM 94 mg/dL (74-106)
[2017-07-12] MEDS ORDERED: POTASSIUM CHLORIDE TABS 20 MEQ TABLET.ER (FP) PO ONE (09:45)
[2017-07-12] MEDS: ASPIRIN COATED 81 MG TABLET.EC PO SCH (10:27)
[2017-07-12] MEDS: busPIRone HCL 10 MG TABLET (FP) PO SCH (10:27)
[2017-07-12] MEDS: TAMSULOSIN HCL 0.4 MG CAP.ER.24H (FP) PO SCH (10:27)
[2017-07-12] MEDS: SPIRONOLACTONE 25 MG TABLET (FP) PO SCH (10:28)
[2017-07-12] MEDS: ALPRAZolam 0.25 MG TABLET PO SCH (10:28)
[2017-07-12] MEDS: POTASSIUM CHLORIDE ORAL LIQUID 20 MEQ/15 ML PO SCH (10:28)
--- NOTE | 2017-07-12 10:55 | PN ---
Progress Note (short form) - Note Progress Note: S:Patient continues to show improvement, no SOB or chest pain. tolerating therapy. no further lightheadedness or side effects to medications. Current Medications Acetaminophen (Tylenol -) 650 mg PO Q6H PRN PRN Reason: FEVER OR PAIN Last Admin: 07/07/17 17:21 Dose: 650 mg Alprazolam (Xanax -) 0.25 mg PO BID [facility] Last Admin: 07/12/17 10:28 Dose: Not Given Aspirin (Ecotrin -) 81 mg PO DAILY [facility] Last Admin: 07/12/17 10:27 Dose: 81 mg Atorvastatin Calcium (Lipitor -) 10 mg PO HS [facility] Last Admin: 07/11/17 21:23 Dose: Not Given Buspirone HCl (Buspar -) 10 mg PO BID [facility] Last Admin: 07/12/17 10:27 Dose: 10 mg Carvedilol (Coreg -) 3.125 mg PO DAILY@0700 [facility] Last Admin: 07/12/17 10:27 Dose: 3.125 mg Carvedilol (Coreg -) 6.25 mg PO DAILY@2200 [facility] Last Admin: 07/11/17 21:19 Dose: 6.25 mg Clopidogrel Bisulfate (Plavix -) 75 mg PO AM [facility] Last Admin: 07/12/17 10:27 Dose: 75 mg Furosemide 100 mg/ Dextrose 50 mls @ 2.5 mls/hr IVPB TITR JEREMÍAS PRN Reason: 5 MG/HR Last Admin: 07/11/17 21:23 Dose: 2.5 mls/hr Dobutamine HCl 250,000 mcg/ (Sodium Chloride) 250 mls @ 24.08 mls/hr IV TITR JEREMÍAS; 5 MCG/KG/MIN PRN Reason: Protocol Last Admin: 07/12/17 06:23 Dose: 24.08 mls/hr Potassium Chloride (Potassium Chloride Oral Liquid) 20 meq PO DAILY [facility] Last Admin: 07/12/17 10:28 Dose: Not Given Spironolactone (Aldactone -) 12.5 mg PO BID [facility] Last Admin: 07/12/17 10:28 Dose: 12.5 mg Tamsulosin HCl (Flomax -) 0.4 mg PO DAILY@0830 [facility] Last Admin: 07/12/17 10:27 Dose: 0.4 mg Trazodone HCl (Desyrel -) 25 mg PO HS [facility] Last Admin: 07/11/17 21:22 Dose: 25 mg Patient is in no distress, no pallor or cyanosis,clubbing or jaundice. Vital Signs 07/12/17 06:00 Temperature 98.0 F Pulse Rate 74 Respiratory 18 Rate Blood Pressure 141/84 Intake & Output 07/09/17 07/10/17 07/11/17 07/12/17 23:59 23:59 23:59 23:59 Intake Total 231 596 9480 518 Output Total 550 2000 1550 300 Balance -50 -1522 -530 218 Weight 180 lb 12.8 oz 179 lb 4 oz 179 lb 4 oz 177 lb NECK: Supple, no JVD, -ve HJR. Carotids 2+, no bruits heard. HEART: PMI in 5th ICS, no heaves or thrills. DUARTE I/, grade I/ apical systolic murmur, no gallops heard. LUNGS: Clear on auscultation. ABDOMEN: Soft, nontender, no organomegaly or palpable masses. EXTREMITIES: 1+ right pedal edema,2+ left pedal edema, no calf tenderness. Abnormal Lab Results 07/12/17 05:35 Potassium 3.4 L Chloride 95 L BUN 39 H Creatinine 2.2 H Calcium 8.0 L A: 1. CHF NYHA class II. 2. CAD, S/P NSTEMI, S/P PCI/Stenting. 3. S/P CABG. 4. Acute on CKD. 5. S/P ICD. 6. Hypertension. 7. Hypokalemia Recommendations: 1. Correction of K+ before discharge. 2. Current therapy. 3. Visiting nurse service. 4. Check BP supine and standing. 5.Consider increasing the dose of aldactone. Prognosis: Guarded.
--- NOTE | 2017-07-12 11:08 | PN ---
Progress Note, Physician History of Present Illness: pulmonary alert,feeling better,less dyspneic,-cp. pt ambulating well - Current Medication List Current Medications: Active Medications Acetaminophen (Tylenol -) 650 mg PO Q6H PRN PRN Reason: FEVER OR PAIN Last Admin: 07/07/17 17:21 Dose: 650 mg Alprazolam (Xanax -) 0.25 mg PO BID [facility] Last Admin: 07/12/17 10:28 Dose: Not Given Aspirin (Ecotrin -) 81 mg PO DAILY [facility] Last Admin: 07/12/17 10:27 Dose: 81 mg Atorvastatin Calcium (Lipitor -) 10 mg PO HS [facility] Last Admin: 07/11/17 21:23 Dose: Not Given Buspirone HCl (Buspar -) 10 mg PO BID [facility] Last Admin: 07/12/17 10:27 Dose: 10 mg Carvedilol (Coreg -) 3.125 mg PO DAILY@0700 [facility] Last Admin: 07/12/17 10:27 Dose: 3.125 mg Carvedilol (Coreg -) 6.25 mg PO DAILY@2200 [facility] Last Admin: 07/11/17 21:19 Dose: 6.25 mg Clopidogrel Bisulfate (Plavix -) 75 mg PO AM [facility] Last Admin: 07/12/17 10:27 Dose: 75 mg Furosemide 100 mg/ Dextrose 50 mls @ 2.5 mls/hr IVPB TITR JEREMÍAS PRN Reason: 5 MG/HR Last Admin: 07/11/17 21:23 Dose: 2.5 mls/hr Dobutamine HCl 250,000 mcg/ (Sodium Chloride) 250 mls @ 24.08 mls/hr IV TITR JEREMÍAS; 5 MCG/KG/MIN PRN Reason: Protocol Last Admin: 07/12/17 06:23 Dose: 24.08 mls/hr Potassium Chloride (Potassium Chloride Oral Liquid) 20 meq PO DAILY [facility] Last Admin: 07/12/17 10:28 Dose: Not Given Spironolactone (Aldactone -) 12.5 mg PO BID [facility] Last Admin: 07/12/17 10:28 Dose: 12.5 mg Tamsulosin HCl (Flomax -) 0.4 mg PO DAILY@0830 [facility] Last Admin: 07/12/17 10:27 Dose: 0.4 mg Trazodone HCl (Desyrel -) 25 mg PO HS [facility] Last Admin: 09/28/17 21:22 Dose: 25 mg - Objective Vital Signs: Vital Signs Temperature 98.0 F 07/12/17 06:00 Pulse Rate 74 07/12/17 06:00 Respiratory Rate 18 07/12/17 06:00 Blood Pressure 141/84 07/12/17 06:00 O2 Sat by Pulse Oximetry (%) 98 07/11/17 19:58 Constitutional: Yes: Well Nourished, Calm Eyes: Yes: WNL HENT: Yes: WNL Neck: Yes: Supple Cardiovascular: Yes: Regular Rate and Rhythm, S1, S2 Respiratory: Yes: Rales (bilateral crackles 1/3 up) Gastrointestinal: Yes: Normal Bowel Sounds, Soft Extremities: Yes: WNL Edema: Yes Labs: CBC, BMP 07/09/17 05:28 07/12/17 05:35 Problem List - Problems (1) Acute exacerbation of CHF (congestive heart failure) Code(s): I50.9 - HEART FAILURE, UNSPECIFIED Qualifiers: Congestive heart failure type: systolic Qualified Code(s): I50.23 - Acute on chronic systolic (congestive) heart failure (2) Orthopnea Code(s): R06.01 - ORTHOPNEA (3) SOB (shortness of breath) Code(s): R06.02 - SHORTNESS OF BREATH (4) CAD (coronary artery disease) Code(s): I25.10 - ATHSCL HEART DISEASE OF [place] CORONARY ARTERY W/O ANG PCTRS (5) Chronic kidney disease (CKD) stage G3a/A2, moderately decreased glomerular filtration rate (GFR) between 45-59 mL/min/1.73 square meter and albuminuria creatinine ratio between 30-299 mg/g Code(s): N18.3 - CHRONIC KIDNEY DISEASE, STAGE 3 (MODERATE) (6) Weakness Code(s): R53.1 - WEAKNESS (7) Hypertension Code(s): I10 - ESSENTIAL (PRIMARY) HYPERTENSION Assessment/Plan IMP ACUTE ON CHRONIC CHF SECONDARY TO NON-COMPLIANCE CLINICALLY ASHD S/P CABG,STENT ICD S/P NSTEMI CKD COPD HTN HLD PLAN DIURETICS O2 DAILY WTS COMPLIANCE WITH MEDS DR ANGELA Problem List - Problems (1) Acute exacerbation of CHF (congestive heart failure) Code(s): I50.9 - HEART FAILURE, UNSPECIFIED Qualifiers: Congestive heart failure type: systolic Qualified Code(s): I50.23 - Acute on chronic systolic (congestive) heart failure (2) Orthopnea Code(s): R06.01 - ORTHOPNEA (3) SOB (shortness of breath) Code(s): R06.02 - SHORTNESS OF BREATH (4) CAD (coronary artery disease) Code(s): I25.10 - ATHSCL HEART DISEASE OF [place] CORONARY ARTERY W/O ANG PCTRS (5) Chronic kidney disease (CKD) stage G3a/A2, moderately decreased glomerular filtration rate (GFR) between 45-59 mL/min/1.73 square meter and albuminuria creatinine ratio between 30-299 mg/g Code(s): N18.3 - CHRONIC KIDNEY DISEASE, STAGE 3 (MODERATE) (6) Weakness Code(s): R53.1 - WEAKNESS (7) Hypertension Code(s): I10 - ESSENTIAL (PRIMARY) HYPERTENSION
--- NOTE | 2017-07-12 13:43 | DS ---
Physical Exam: SUBJECTIVE: Patient seen and examined. No acute events overnight. Patient offers no complaints and states he feels very good today. He denies SOB, chest pain, abdominal pain, dizziness and weakness. OBJECTIVE: Vital Signs Period Temp Pulse Resp BP Sys/العلي Pulse Ox Last 24 Hr 97.4 F-98.3 F 72-82 16-20 110-141/65-84 98 PHYSICAL EXAM GENERAL: The patient is awake, alert, and fully oriented, in no acute distress. HEAD: Normal with no signs of trauma. NECK: supple. LUNGS: minimal crackles, no wheezing HEART: Regular rate and rhythm, S1, S2 without murmur, rub or gallop. ABDOMEN: Soft, nontender, nondistended, normoactive bowel sounds, no guarding, no rebound, no hepatosplenomegaly, no masses. EXTREMITIES: 2+ pulses, B/L LE 2+ edema (showing significant improvement) PSYCH: Normal mood, normal affect. LABS Laboratory Results - last 24 hr 07/12/17 05:35 Sodium 136 Potassium 3.4 L Chloride 95 L Carbon Dioxide 31 Anion Gap 10 BUN 39 H Creatinine 2.2 H Random Glucose 94 Calcium 8.0 L HOSPITAL COURSE: Date of Admission:07/05/17 Non-compliant 87M PMH of HTN HLD CKD COPD BPH, recent stemi, PSVT, and CAD s/p CABG x 5 yrs ago at [facility] who presented to the ED complaining of shortness of breath and worsening orthopnea. He stated his exercise tolerance has been slightly getting worse but most concerning for him is his inability to lay down. Patient was found to have elevation of troponins in the ED likely due to demand ischemia. Patient was found to have and was treated for Acute on CHF exacerbation. Cardio (Dr. Hernandez) were consulted to further evaluate the patient. He was being managed with Lasix drip and Dobutamine was added to maintain systemic perfusion and preserve end organ performance. He was also treated for anxiety and claustrophobia with Xanax 0.25BID and Buspar, which alleviated his symptoms. Renal function improved and volume status improved with Dobutamine and Lasix. Once renal functions achieved baseline and patient was asymptompatic, patient was discharged on PO lasix. Patient will follow up with Dr. Campuzano and Dr. Casey outpatient. Date of Discharge: 07/12/17 <Kelsy Red - Last Filed: 07/12/17 13:45> Physical Exam: Will discharge the patient on once per day dosing of Xanax as needed prn for anxiety. Minutes to complete discharge: 50 <Brayan Diaz - Last Filed: 07/12/17 15:02> Discharge Summary Reason For Visit: ACUTE ON CHRONIC CONGESTIVE HEART FAILURE,ELEVATED Current Active Problems Acute exacerbation of CHF (congestive heart failure) (Acute) Elevated troponin (Acute) Orthopnea (Acute) SOB (shortness of breath) (Acute) CAD (coronary artery disease) (Chronic) CHF (congestive heart failure) (Chronic) Chronic kidney disease (CKD) stage G3a/A2, moderately decreased glomerular filtration rate (GFR) between 45-59 mL/min/1.73 square meter and albuminuria creatinine ratio between 30-299 mg/g (Chronic) Renal insufficiency (Chronic) - Home Medications Comprehensive Discharge Medication List: Ambulatory Orders Simvastatin 20 mg PO HS 06/10/17 Bacitracin - [Bacitracin Topical Ointment -] 1 applic TP BID #1 tube 06/21/17 Clopidogrel Bisulfate [Plavix -] 75 mg PO AM #30 tab 06/21/17 Ciprofloxacin 0.3% Eye Drops [Ciloxan 0.3% Eye Drops -] 4 drop NR BID 06/27/17 Potassium Chloride 20 meq PO DAILY 06/27/17 Aspirin [Ecotrin] 81 mg PO DAILY #30 tablet. 06/30/17 Tamsulosin HCl [Flomax -] 0.4 mg PO HS #30 cap 06/30/17 Trazodone HCl [Desyrel -] 25 mg PO HS tablet 06/30/17 Alprazolam [Xanax] 0.25 mg PO BID #60 tablet MDD 0.5 07/12/17 Buspirone HCl [Buspar -] 5 mg PO DAILY #1 tablet MDD 5 07/12/17 Carvedilol 6.25 mg PO DAILY #30 tablet 07/12/17 Carvedilol [Coreg -] 3.125 mg PO DAILY@0700 #30 tablet 07/12/17 Spironolactone [Aldactone] 25 mg PO DAILY #30 tablet 07/12/17 <Kelsy Red - Last Filed: 07/12/17 13:45> Current Active Problems Acute exacerbation of CHF (congestive heart failure) (Acute) Elevated troponin (Acute) Orthopnea (Acute) SOB (shortness of breath) (Acute) CAD (coronary artery disease) (Chronic) CHF (congestive heart failure) (Chronic) Chronic kidney disease (CKD) stage G3a/A2, moderately decreased glomerular filtration rate (GFR) between 45-59 mL/min/1.73 square meter and albuminuria creatinine ratio between 30-299 mg/g (Chronic) Renal insufficiency (Chronic) - Home Medications Comprehensive Discharge Medication List: Ambulatory Orders RX: Simvastatin 20 mg PO HS 06/10/17 RX: Bacitracin - [Bacitracin Topical Ointment -] 1 applic TP BID #1 tube RX: Clopidogrel Bisulfate [Plavix -] 75 mg PO AM #30 tab 06/21/17 RX: Potassium Chloride 20 meq PO DAILY 06/27/17 RX: Aspirin [Ecotrin] 81 mg PO DAILY #30 tablet. 06/30/17 Buspirone HCl [Buspar -] 5 mg PO DAILY #1 tablet MDD 5 07/12/17 Furosemide [Lasix] 40 mg PO BID #60 tablet 07/12/17 Potassium Chloride [K-Dur -] 20 meq PO BID #10 tablet.er 07/12/17 RX: Alprazolam [Xanax] 0.25 mg PO DAILY PRN #3 tablet MDD 1 07/12/17 RX: Carvedilol 6.25 mg PO DAILY #30 tablet 07/12/17 RX: Carvedilol [Coreg -] 3.125 mg PO DAILY@0700 #30 tablet 07/12/17 Spironolactone [Aldactone] 25 mg PO DAILY #30 tablet 07/12/17 <Brayan Diaz - Last Filed: 07/12/17 15:02> Condition: Stable - Instructions Diet, Activity, Other Instructions: After we discharge you from the hospital please use walker. Follow up with your taper/finisher in 1 week. Follow up with Dr. Casey in 1 week. Take your Buspirone medication for anxiety at night. You need to weight yourself every day. If you see a 2 pound weight gain in 1 day , call your taper/finisher. Kdur 20meq po 2x per day for 5 days then continue one tablet orally daily Referrals: Anmol Casey MD [Primary Care Provider] - 1 Week Kelvin Campuzano MD [Staff Physician] - 1 Week Disposition: VNS/HOME HEALTH CARE This patient is new to me today: No Emergency Visit: Yes ED Registration Date: 07/05/17 Care time: The patient presented to the Emergency Department on the above date and was hospitalized for further evaluation of their emergent condition. Critical Care patient: No - Discharge Referral Referred to [facility] Med P.C[facility] No <Brayan Diaz - Last Filed: 07/12/17 15:02>
[2017-07-12 14:17] VITALS: BP 116/65; PULSE 77; TEMP 97.6
--- NOTE | 2017-07-12 14:27 | PN ---
Teaching Attending Note Name of Resident: Kelsy Red ATTENDING PHYSICIAN STATEMENT I saw and evaluated the patient. I reviewed the resident's note and discussed the case with the resident. I agree with the resident's findings and plan as documented. SUBJECTIVE: Comfortable this morning, no acute distress. feels better wants to go home. OBJECTIVE: Vital Signs Temperature 97.6 F 07/12/17 14:00 Pulse Rate 77 07/12/17 14:00 Respiratory Rate 18 07/12/17 14:00 Blood Pressure 116/65 07/12/17 14:00 O2 Sat by Pulse Oximetry (%) 98 07/11/17 19:58 CBCD WBC 3.8 K/mm3 (4.0-10.0) L D 07/09/17 05:28 RBC 3.61 M/mm3 (4.00-5.60) L 07/09/17 05:28 Hgb 10.6 GM/dL (11.7-16.9) L 07/09/17 05:28 Hct 31.9 % (35.4-49) L 07/09/17 05:28 MCV 88.3 fl (80-96) 07/09/17 05:28 MCHC 33.1 g/dl (32.0-35.9) 07/09/17 05:28 RDW 15.9 % (11.9-15.9) 07/09/17 05:28 Plt Count 121 K/MM3 (134-434) L 07/09/17 05:28 MPV 9.7 fl (7.5-11.1) 07/09/17 05:28 CMP Sodium 136 mmol/L (136-145) 07/12/17 05:35 Potassium 3.4 mmol/L (3.5-5.1) L 07/12/17 05:35 Chloride 95 mmol/L (98-107) L 07/12/17 05:35 Carbon Dioxide 31 mmol/L (21-32) 07/12/17 05:35 Anion Gap 10 (8-16) 07/12/17 05:35 BUN 39 mg/dL (7-18) H 07/12/17 05:35 Creatinine 2.2 mg/dL (0.7-1.3) H 07/12/17 05:35 Creat Clearance w eGFR 21.54 (>60) 07/09/17 05:28 Random Glucose 94 mg/dL (74-106) 07/12/17 05:35 Calcium 8.0 mg/dL (8.5-10.1) L 07/12/17 05:35 Total Bilirubin 1.3 mg/dL (0.2-1.0) H D 07/09/17 05:28 AST 12 U/L (15-37) L D 07/09/17 05:28 ALT 19 U/L (12-78) 07/09/17 05:28 Alkaline Phosphatase 94 U/L (45-117) 07/09/17 05:28 Total Protein 6.1 g/dl (6.4-8.2) L 07/09/17 05:28 Albumin 3.2 g/dl (3.4-5.0) L 07/09/17 05:28 CARDIAC ENZYMES Creatine Kinase 81 IU/L (39-308) 07/05/17 16:20 Troponin I 0.12 ng/ml (0.00-0.05) H 07/05/17 16:20 Current Medications Generic Name Dose Route Start Last Admin Trade Name Freq PRN Reason Stop Dose Admin Acetaminophen 650 mg 07/05/17 14:17 07/07/17 17:21 Tylenol - PO 650 mg Q6H PRN Administration FEVER OR PAIN Alprazolam 0.25 mg 07/05/17 22:00 07/12/17 10:28 Xanax - PO Not Given BID JEREMÍAS Aspirin 81 mg 07/05/17 10:00 07/12/17 10:27 Ecotrin - PO 81 mg DAILY JEREMÍAS Administration Atorvastatin Calcium 10 mg 07/05/17 22:00 07/11/17 21:23 Lipitor - PO Not Given HS JEREMÍAS Buspirone HCl 5mg 07/05/17 22:00 07/12/17 10:27 Buspar - PO 10 mg hs Administration Carvedilol 3.125 mg 07/06/17 07:00 07/12/17 10:27 Coreg - PO 3.125 mg DAILY@0700 JEREMÍAS Administration Carvedilol 6.25 mg 07/05/17 22:00 07/11/17 21:19 Coreg - PO 6.25 mg DAILY@2200 JEREMÍAS Administration Clopidogrel Bisulfate 75 mg 07/05/17 07:00 07/12/17 10:27 Plavix - PO 75 mg AM JEREMÍAS Administration Furosemide 100 mg/ Dextrose 50 mls @ 2.5 mls/hr 07/08/17 11:00 07/11/17 21:23 IVPB 2.5 mls/hr TITR JEREMÍAS Administration 5 MG/HR Potassium Chloride 20 meq 07/05/17 10:00 07/12/17 10:28 Potassium Chloride Oral Liquid PO Not Given DAILY JEREMÍAS Spironolactone 12.5 mg 07/05/17 10:00 07/12/17 10:28 Aldactone - PO 12.5 mg BID JEREMÍAS Administration Tamsulosin HCl 0.4 mg 07/05/17 08:30 07/12/17 10:27 Flomax - PO 0.4 mg DAILY@0830 JEREMÍAS Administration Trazodone HCl 25 mg 07/05/17 22:00 07/11/17 21:22 Desyrel - PO 25 mg HS JEREMÍAS Administration Home Medications Medication Instructions Recorded Simvastatin 20 mg PO HS 06/10/17 Bacitracin - [Bacitracin Topical 1 applic TP BID #1 tube 06/21/17 Ointment -] Clopidogrel Bisulfate [Plavix -] 75 mg PO AM #30 tab 06/21/17 Potassium Chloride 20 meq PO DAILY 06/27/17 Aspirin [Ecotrin] 81 mg PO DAILY #30 tablet. 06/30/17 Buspirone HCl [Buspar -] 5 mg PO DAILY #1 tablet MDD 5 07/12/17 Carvedilol 6.25 mg PO DAILY #30 tablet 07/12/17 Carvedilol [Coreg -] 3.125 mg PO DAILY@0700 #30 tablet 07/12/17 Furosemide [Lasix] 40 mg PO BID #60 tablet 07/12/17 Potassium Chloride [K-Dur -] 20 meq PO BID #10 tablet.er 07/12/17 Spironolactone [Aldactone] 25 mg PO DAILY #30 tablet 07/12/17 PE: looks awake and alert with no acute distress rest of PE per resident's note ASSESSMENT AND PLAN: Patient is an 87 y/o man with h/o CAD, S/p CABG, recent stenting, AICD placement , HTN, HL, and other medical problems who presented with worsening SOB and was found to have acute CHF exacerbation. # Acute Lethargy improved post switching Buspar to be taken at night , changed to 5mg from 10mg. Also Patient takes Xanax at home for anxiety, can continue home medication as per his mammal control agent. # Acute on chronic Systolic and diastolic CHF: due to non compliance improved , discontinued dobutamine and Lasix drip, started the patient on Lasix po 40mg po bid . Coreg changed to 3.125mg po am and 6.25mg pm, daily weight and I's and O's. Discussed with Dr. Lainez agrees with the plan. # HTN:controlled on coreg and Lasix, discontinued imdur due to having headache on last admission. # H/O CAD: cont BB and ASA/Plavix # CKD :Cr stabilized on lasix and dobutamine gtt # Anxiety: placed the patient on Buspar. dvt pX: hEPARIN
== END 2017-07-12 15:49 | disposition home health service (06) | DRG 291 ==
LOC: JER 20:43 → JERBED 07-05 02:21 → J4S 07-05 04:02 → J4W 07-07 17:48
PROVIDERS: ADMIT Internal Medicine; ATTEND Internal Medicine
DX: I13.0 Hypertensive heart and chronic kidney disease with heart failure and stage 1 through stage 4 chronic kidney disease, or unspecified chronic kidney disease (principal); I50.43 Acute on chronic combined systolic (congestive) and diastolic (congestive) heart failure; N18.4 Chronic kidney disease, stage 4 (severe); N39.0 Urinary tract infection, site not specified; E87.2 Acidosis; N17.9 Acute kidney failure, unspecified; B95.2 Enterococcus as the cause of diseases classified elsewhere; E78.5 Hyperlipidemia, unspecified; R42 Dizziness and giddiness; J44.9 Chronic obstructive pulmonary disease, unspecified; I25.10 Atherosclerotic heart disease of native coronary artery without angina pectoris; N40.0 Benign prostatic hyperplasia without lower urinary tract symptoms; I25.2 Old myocardial infarction; G47.09 Other insomnia; F41.8 Other specified anxiety disorders; I44.7 Left bundle-branch block, unspecified; F40.240 Claustrophobia; E87.6 Hypokalemia; Z95.1 Presence of aortocoronary bypass graft; Z95.5 Presence of coronary angioplasty implant and graft; Z95.810 Presence of automatic (implantable) cardiac defibrillator; Z87.891 Personal history of nicotine dependence; Z91.19 Patient's noncompliance with other medical treatment and regimen
CPT/HCPCS: 36415; 71010-TC; 80048; 80053; 81003; 81015; 83605; 83735; 83880; 84100; 84443; 84484; 85025; 85027; 87040; 87086; 87186; 93005; 93010; 97116-GP; 97161-GP; 99284-25; J1250; J1644

== ENCOUNTER 2017-07-17 14:45 | Inpatient (IN) | payer BC, OTHER ==
--- NOTE | 2017-07-17 15:11 | PDOC ---
History of Present Illness <Sofia Mckee - Last Filed: 07/17/17 18:32> - General History Source: Patient Exam Limitations: No Limitations - History of Present Illness Initial Comments: 07/17/17 16:25 Patient is a 87 year old male with a significant past medical history of HTN, HLD. CAD s/p, CABG 6 years ago, nSTEMI s/p stent 05/30, CKD, BPH, COPD who presents to the ED with complaints of SOB that began this morning. Patient reports experiencing sudden onset of SOB this afternoon while at home. Patient states he was unable to take his afternoon medication due to SOB. He reports taking medication this morning, which was when he states the SOB began. Patient reports experiencing intermittent dizziness secondary to SOB. He reports experiencing one episodes of diarrhea this morning secondary to SOB. Patient states loss of appetite since saturday, he states his last meal was 2 days ago. Denies Allergies: amoxicillin dihydrate. Atorvastatin calcium, potassium clavulanate Social history: Former smoker. No alcohol. No illicit drugs. Surgical history: Cardiac Stents x3 PMD: Dr. Casey, Dr. 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) <Chun Schneider - Last Filed: 07/17/17 18:52> - General Chief Complaint: Shortness of Breath Stated Complaint: SOB Time Seen by Provider: 07/17/17 15:05 Past History - Past Medical History Cardiac Disorders: Yes (CABG (5 years ago), CAD, [place] w/ stent) COPD: Yes CHF: Yes Diabetes: No HTN: Yes Hypercholesterolemia: Yes Psychiatric Problems: Yes (anxiety, insomnia) - Surgical History Cardiac Surgery: Yes (OPEN HEART SX, cardiac stent 05/30, AICD 05/30) - Immunization History Immunization Up to Date: Yes - Suicide/Smoking/Psychosocial Hx Smoking Status: No Smoking History: Former smoker Have you smoked in the past 12 months: No Number of Cigarettes Smoked Daily: 0 If you are a former smoker, when did you quit?: 35 years ago Information on smoking cessation initiated: No Hx Alcohol Use: No Drug/Substance Use Hx: No Substance Use Type: Alcohol Hx Substance Use Treatment: No <Sofia Mckee - Last Filed: 07/17/17 18:32> <Chun Schneider - Last Filed: 07/17/17 18:52> - Past Medical History Allergies/Adverse Reactions: Allergies Allergy/AdvReac Type Severity Reaction Status Date / Time amoxicillin trihydrate AdvReac Mild gi upset Verified 07/17/17 15:00 [From Augmentin] atorvastatin calcium AdvReac Mild gi upset Verified 07/17/17 15:00 [From Lipitor] potassium clavulanate AdvReac Mild gi upset Verified 07/17/17 15:00 [From Augmentin] Home Medications: Ambulatory Orders Simvastatin 20 mg PO HS 06/10/17 Bacitracin - [Bacitracin Topical Ointment -] 1 applic TP BID #1 tube 06/21/17 Clopidogrel Bisulfate [Plavix -] 75 mg PO AM #30 tab 06/21/17 Potassium Chloride 20 meq PO DAILY 06/27/17 Aspirin [Ecotrin] 81 mg PO DAILY #30 tablet. 06/30/17 Alprazolam [Xanax] 0.25 mg PO DAILY PRN #3 tablet MDD 1 07/12/17 Buspirone HCl [Buspar -] 5 mg PO DAILY #1 tablet MDD 5 07/12/17 Carvedilol 6.25 mg PO DAILY #30 tablet 07/12/17 Carvedilol [Coreg -] 3.125 mg PO DAILY@0700 #30 tablet 07/12/17 Furosemide [Lasix] 40 mg PO BID #60 tablet 07/12/17 Spironolactone [Aldactone] 25 mg PO DAILY #30 tablet 07/12/17 Review of Systems - Review of Systems Able to Perform ROS?: Yes Comments:: 07/17/17 16:25 GENERAL/CONSTITUTIONAL: No fever or chills. No weakness. HEAD, EYES, EARS, NOSE AND THROAT: No change in vision. No ear pain or discharge. No sore throat. GASTROINTESTINAL: +Diarrhea. No nausea, vomiting, constipation. GENITOURINARY: No dysuria, frequency, or change in urination. CARDIOVASCULAR: +SOB. No chest pain RESPIRATORY: No cough, wheezing, or hemoptysis. MUSCULOSKELETAL: No joint or muscle swelling or pain. No neck or back pain. SKIN: No rash NEUROLOGIC: No headache, vertigo, loss of consciousness, or change in strength/ sensation. ENDOCRINE: No increased thirst. No abnormal weight change. HEMATOLOGIC/LYMPHATIC: No anemia, easy bleeding, or history of blood clots. ALLERGIC/IMMUNOLOGIC: No hives or skin allergy. All Other Systems: Reviewed and Negative <Chun Schneider - Last Filed: 07/17/17 18:52> *Physical Exam - Vital Signs Last Vital Signs Temp Pulse Resp BP Pulse Ox 97.6 F 90 18 129/79 100 07/17/17 15:06 07/17/17 15:06 07/17/17 15:06 07/17/17 15:06 07/17/17 15:06 <Sofia Mckee - Last Filed: 07/17/17 18:32> - Vital Signs Last Vital Signs Temp Pulse Resp BP Pulse Ox 97.6 F 90 18 129/79 100 07/17/17 15:06 07/17/17 15:06 07/17/17 15:06 07/17/17 15:06 07/17/17 15:06 - Physical Exam Comments: 07/17/17 16:27 GENERAL: +Speaking in clear sentences. Awake, alert, and fully oriented, in no acute distress HEAD: No signs of trauma EYES: PERRLA, EOMI, sclera anicteric, conjunctiva clear ENT: Auricles normal inspection, hearing grossly normal, nares patent, oropharynx clear without exudates. Moist mucosa NECK: Normal ROM, supple, no lymphadenopathy, JVD, or masses LUNGS: +Soft rails at bases. Breath sounds equal, clear to auscultation bilaterally. No wheezes, and no crackles HEART: Regular rate and rhythm, normal S1 and S2, no murmurs, rubs or gallops ABDOMEN: +Ecchymosis in lower abdomen. Soft, nontender, normoactive bowel sounds. No guarding, no rebound. No masses EXTREMITIES: +4+ pitting edema in legs, full ROM. Normal range of motion, No clubbing or cyanosis. No cords, erythema, or tenderness NEUROLOGICAL: Cranial nerves II through XII grossly intact. Normal speech. SKIN: Warm, Dry, normal turgor, no rashes or lesions noted. <Chun Schneider - Last Filed: 07/17/17 18:52> Heart Score/ECG Review - ECG Intrepretation Comment:: 07/17/17 18:24 sinus at 87, L axis deviation, lvh, pvc, q waves inferior leads that are age indeterminate <Sofia Mckee - Last Filed: 07/17/17 18:32> ED Treatment Course - LABORATORY CBC & Chemistry Diagram: 07/17/17 15:35 07/17/17 15:40 - RADIOLOGY Radiology Studies Ordered: Category Date Time Status CHEST PA & LAT [RAD] Stat Radiology 07/17/17 15:06 Ordered <Sofia Mckee - Last Filed: 07/17/17 18:32> - LABORATORY CBC & Chemistry Diagram: 07/17/17 15:35 07/17/17 15:40 - ADDITIONAL ORDERS Additional order review: Laboratory Results 07/17/17 07/17/17 15:40 15:40 Sodium 134 L Potassium 4.6 D Chloride 96 L Carbon Dioxide 26 Anion Gap 12 BUN 32 H Creatinine 2.1 H Creat Clearance w eGFR 30.02 Random Glucose 108 H Calcium 8.5 Magnesium 2.4 Total Bilirubin 1.7 H D AST 21 D ALT 17 Alkaline Phosphatase 116 D Creatine Kinase 79 Troponin I 0.02 D B-Natriuretic Peptide 03949.53 H Total Protein 6.8 Albumin 3.6 07/17/17 15:35 RBC 3.89 L MCV 88.7 MCHC 32.5 RDW 16.7 H MPV 10.3 Neutrophils % 63.0 Lymphocytes % 19.9 Monocytes % 13.5 H Eosinophils % 1.8 D Basophils % 1.8 <Chun Schneider - Last Filed: 07/17/17 18:52> Medical Decision Making - Medical Decision Making 07/17/17 18:23 a/p: 87yo male with sob/dizziness -no cp -labs -cxr -lasix -will discuss with Dr. Campuzano and Dr. Casey 07/17/17 18:23 re-eval: pt c/o vertigo will add head ct given dizziness on asa/plavix 07/17/17 18:[address] Campuzano - agrees with head ct, iv lasix, recommends obs overnight 07/17/17 18:33 case discussed with doc covering dr. casey who recommends obs to the hospitalist. <Sofia Mckee - Last Filed: 07/17/17 18:32> - Medical Decision Making 07/17/17 18:[address] Eleni @18:20pm. Awaiting call back Dr. Julio called back @18:34pm. Case discussed. Called Dr. Campuzano @18:04pm. Cased discussed. <Chun Schneider - Last Filed: 07/17/17 18:52> *DC/Admit/Observation/Transfer - Attestations Physician Attestion: 07/17/17 18:33 I, Dr. Sofia Mckee DO, attest that this document has been prepared under my direction and personally reviewed by me in its entirety. I further attest, that it accurately reflects all work, treatment, procedures and medical decision -making performed by me. <Sofia Mckee - Last Filed: 07/17/17 18:32> - Attestations Scribe Attestion: 07/17/17 16:27 Documentation prepared by Chun Schneider, acting as medical technicians for Sofia Mckee DO. <Chun Schneider - Last Filed: 07/17/17 18:52> Diagnosis at time of Disposition: Dizziness, Acute exacerbation of CHF (congestive heart failure) - Discharge Dispostion Condition at time of disposition: Fair - Referrals Referrals: Anmol Casey MD [Primary Care Provider] -
[2017-07-17 15:45] LABS: BASOPHIL 1.8 % (0-2.0); EOSINOPHIL 1.8 % (0-4.5); MCH 28.8 pg (25.7-33.7); MCHC 32.5 g/dl (32.0-35.9); MEAN CELL VOLUME 88.7 fl (80-96); MEAN PLT VOLUME 10.3 fl (7.5-11.1); PLATELET COUNT 127 K/MM3 (134-434); RDW 16.7 % (11.9-15.9); WHITE BLOOD COUNT 5.9 K/mm3 (4.0-10.0)
[2017-07-17 15:57] LABS: ALBUMIN 3.6 g/dl (3.4-5.0); ANION GAP 12 (8-16); CALCIUM 8.5 mg/dL (8.5-10.1); CO2 26 mmol/L (21-32); CREATININE 2.1 mg/dL (0.7-1.3); GLUCOSE,RANDOM 108 mg/dL (74-106); SGPT/ALT 17 U/L (12-78)
[2017-07-17 16:01] LABS: ALK PHOS 116 U/L (45-117); BILIRUBIN,TOTAL 1.7 mg/dL (0.2-1.0); CPK 79 IU/L (39-308); TOT PROT 6.8 g/dl (6.4-8.2); TROPONIN I 0.02 ng/ml (0.00-0.05)
[2017-07-17 16:03] LABS: MAGNESIUM 2.4 mg/dL (1.8-2.4); SGOT/AST 21 U/L (15-37)
[2017-07-17] MEDS ORDERED: ALPRAZolam 0.25 MG TABLET ONE (16:25)
[2017-07-17] MEDS: ALPRAZolam 0.25 MG TABLET PO ONE ×2 (16:26→16:30)
[2017-07-17] MEDS ORDERED: MECLIZINE HCL 25 MG TABLET (FP) ONE (17:27)
[2017-07-17] MEDS ORDERED: MECLIZINE HCL 25 MG TABLET (FP) PO ONE (17:27)
[2017-07-17] MEDS ORDERED: FUROSEMIDE 40 MG/4 ML INJECTABLE VIAL IVPUSH ONE (18:10)
[2017-07-17] MEDS ORDERED: FUROSEMIDE 40 MG/4 ML INJECTABLE VIAL ONE (18:22)
--- NOTE | 2017-07-17 19:34 | HP ---
CHIEF COMPLAINT: SOB, Dizziness PCP: Dr. Knowles HISTORY OF PRESENT ILLNESS: This is a 87 y/o male with a significant medical history of CAD, NSTEMI, s/p stent, s/p AICD, CABG, COPD, Anxiety. Who presents to the ED with SOB, dizziness x am. Patient has had multiple visits to the ED for same. Patient reports increased SOB, DUMONT. Patient reports having a decreased appetite which he attributes to his SOB. Patient reports taking his medications today then he became dizzy. Patient reports continue lower extremity edema. Patient denies fever, chills, cough, CP, AP, N/V/D, constipation, dysuria. ER course was notable for: (1) BNP 66869 (2) BUN 32, CR 2.1 (3) Chest Xray- image interstitial markings, CM Recent Travel: None PAST MEDICAL HISTORY: HTN HLD CAD N Stemi COPD CKD BPH Anxiety PAST SURGICAL HISTORY: s/p AICD 05/30 s/p Cardiac Stent 05/30 s/p CABG Social History: Smoking: Former- 3 PPD 28 year history, quit 30 yrs ago Alcohol: None Drugs: None Lives alone, retired Family History: Parents in their 80's- natural causes 1 brother - unknown, 4 brother's healthy Sister healthy Allergies amoxicillin trihydrate [From Augmentin] Adverse Reaction (Mild, Verified 15:00) gi upset atorvastatin calcium [From Lipitor] Adverse Reaction (Mild, Verified 07/17/17 15 :00) gi upset potassium clavulanate [From Augmentin] Adverse Reaction (Mild, Verified 15:00) gi upset HOME MEDICATIONS: Home Medications Medication Instructions Recorded Simvastatin 20 mg PO HS 06/10/17 Bacitracin - [Bacitracin Topical 1 applic TP BID #1 tube 06/21/17 Ointment -] Clopidogrel Bisulfate [Plavix -] 75 mg PO AM #30 tab 06/21/17 Potassium Chloride 20 meq PO DAILY 06/27/17 Aspirin [Ecotrin] 81 mg PO DAILY #30 tablet. 06/30/17 Alprazolam [Xanax] 0.25 mg PO DAILY PRN #3 tablet MDD 07/12/17 1 Buspirone HCl [Buspar -] 5 mg PO DAILY #1 tablet MDD 5 07/12/17 Carvedilol 6.25 mg PO DAILY #30 tablet 07/12/17 Carvedilol [Coreg -] 3.125 mg PO DAILY@0700 #30 tablet 07/12/17 Furosemide [Lasix] 40 mg PO BID #60 tablet 07/12/17 Spironolactone [Aldactone] 25 mg PO DAILY #30 tablet 07/12/17 REVIEW OF SYSTEMS CONSTITUTIONAL: loss of appetite Absent: fever, chills, diaphoresis, generalized weakness, malaise, weight change HEENT: Absent: rhinorrhea, nasal congestion, throat pain, throat swelling, difficulty swallowing, mouth swelling, ear pain, eye pain, visual changes CARDIOVASCULAR: peripheral edema Absent: chest pain, syncope, palpitations, irregular heart rate, lightheadedness RESPIRATORY: shortness of breath Absent: cough, dyspnea with exertion, orthopnea, wheezing, stridor, hemoptysis GASTROINTESTINAL: Absent: abdominal pain, abdominal distension, nausea, vomiting, diarrhea, constipation, melena, hematochezia GENITOURINARY: Absent: dysuria, frequency, urgency, hesitancy, hematuria, flank pain, genital pain MUSCULOSKELETAL: Absent: myalgia, arthralgia, joint swelling, back pain, neck pain SKIN: Absent: rash, itching, pallor HEMATOLOGIC/IMMUNOLOGIC: Absent: easy bleeding, easy bruising, lymphadenopathy, frequent infections ENDOCRINE: Absent: unexplained weight gain, unexplained weight loss, heat intolerance, cold intolerance NEUROLOGIC: dizziness Absent: headache, focal weakness or paresthesias, unsteady gait, seizure, mental status changes, bladder or bowel incontinence PSYCHIATRIC: Absent: anxiety, depression, suicidal or homicidal ideation, hallucinations. PHYSICAL EXAMINATION Vital Signs - 24 hr 07/17/17 07/17/17 15:06 18:27 Temperature 97.6 F Pulse Rate 90 Pulse Rate [ 64 Apical] Respiratory 18 18 Rate Blood Pressure 129/79 Blood Pressure 160/76 [Right Arm] O2 Sat by Pulse 100 98 Oximetry (%) GENERAL:Anxious, awake, alert, and fully oriented, in no acute distress. HEAD: Normal with no signs of trauma. EYES: Pupils equal, round and reactive to light, extraocular movements intact, sclera anicteric, conjunctiva clear. No lid lag. EARS, NOSE, THROAT: Ears normal, nares patent, oropharynx clear without exudates. Moist mucous membranes. NECK: Normal range of motion, supple without lymphadenopathy, JVD, or masses. LUNGS: Breath sounds equal, clear to auscultation bilaterally. No wheezes, and no crackles. No accessory muscle use. HEART: Grade 1/6 systolic murmur. Regular rate and rhythm, normal S1 and S2, no rub or gallop. ABDOMEN: Soft, nontender, not distended, normoactive bowel sounds, no guarding, no rebound, no masses. No hepatomegaly or splenomegaly. MUSCULOSKELETAL: Normal range of motion at all joints. No bony deformities or tenderness. No CVA tenderness. UPPER EXTREMITIES: 2+ pulses, warm, well-perfused. No cyanosis. No clubbing. No peripheral edema. LOWER EXTREMITIES:+4 pitting L>R peripheral edema. 2+ pulses, warm, well- perfused. No calf tenderness. NEUROLOGICAL: Cranial nerves II-XII intact. Normal speech. Gait not observed. PSYCHIATRIC: Cooperative. Good eye contact. Appropriate mood and affect. SKIN: Warm, dry, normal turgor, no rashes or lesions noted, normal capillary refill. Laboratory Results - last 24 hr 07/17/17 07/17/17 07/17/17 15:35 15:40 15:40 WBC 5.9 D RBC 3.89 L Hgb 11.2 L Hct 34.5 L MCV 88.7 MCH 28.8 MCHC 32.5 RDW 16.7 H Plt Count 127 L MPV 10.3 Neutrophils % 63.0 Lymphocytes % 19.9 Monocytes % 13.5 H Eosinophils % 1.8 D Basophils % 1.8 Sodium 134 L Potassium 4.6 D Chloride 96 L Carbon Dioxide 26 Anion Gap 12 BUN 32 H Creatinine 2.1 H Creat Clearance w eGFR 30.02 Random Glucose 108 H Calcium 8.5 Magnesium 2.4 Total Bilirubin 1.7 H D AST 21 D ALT 17 Alkaline Phosphatase 116 D Creatine Kinase 79 Troponin I 0.02 D B-Natriuretic Peptide 31121.53 H Total Protein 6.8 Albumin 3.6 ASSESSMENT/PLAN: This is a 87 y/o man with a PMHx of: HTN, HLD, CAD s/p CABG, s/p AICD, NSTEMI s/ p stent, Anxiety. Placed on observation for Acute CHF Exacerbation for further evaluation of their emergent condition. Problem List - Problem (1) Acute exacerbation of CHF (congestive heart failure) Assessment/Plan: - Likely Acute on Chronic HF vs Anxiety - NYHA Class II - Chest Xray- image reviewed- interstitial markings, CM, report pending - EKG- reviewed - BNP - Lasix given in ED, will continue - Appreciate Cardiology Consult - Serial Enzymes - Continue home meds - Monitor vitals - O2 - Strict INOs - Daily weights - Consider short term Rehab Code(s): I50.9 - HEART FAILURE, UNSPECIFIED (2) SOB (shortness of breath) Assessment/Plan: - See Above Code(s): R06.02 - SHORTNESS OF BREATH (3) Dizziness Assessment/Plan: - Likely secondary to medication vs arrhythmia - CT Head- no definite interval change, mild to moderate periventricular chronic microvascular Islamic changes, s/p bilateral mastoidectomies - Meclizine given in ED - Meclizine prn - Orthostatics - Monitor vitals - CBC, BMP in am - TSH Code(s): R42 - DIZZINESS AND GIDDINESS (4) CAD (coronary artery disease) Assessment/Plan: - s/p CABG - s/p NSTEMI - s/p PCI Stenting - Echo 05/30- Severe left ventricular dystolic dysfunction - Continue home meds - Serial enzymes - Monitor vitals Code(s): I25.10 - ATHSCL HEART DISEASE OF [place] CORONARY ARTERY W/O ANG PCTRS (5) Anxiety Assessment/Plan: - Continue home meds - Patient counseled on taking medications when he experiences an anxiety attack - Consider Psych eval for Depression, if no improvement Code(s): F41.9 - ANXIETY DISORDER, UNSPECIFIED (6) Chronic kidney disease (CKD) stage G3a/A2, moderately decreased glomerular filtration rate (GFR) between 45-59 mL/min/1.73 square meter and albuminuria creatinine ratio between 30-299 mg/g Assessment/Plan: - Cr 2.1 at baseline - Continue to monitor renal function and treat with interventions accordingly - Avoid Nephro toxic drugs Code(s): N18.3 - CHRONIC KIDNEY DISEASE, STAGE 3 (MODERATE) (7) COPD (chronic obstructive pulmonary disease) Assessment/Plan: - Controlled - Continue bronchodilators - Peak flow Code(s): J44.9 - CHRONIC OBSTRUCTIVE PULMONARY DISEASE, UNSPECIFIED (8) Hypertension Assessment/Plan: - Controlled - Monitor BP - Continue home meds - Low Na Diet Code(s): I10 - ESSENTIAL (PRIMARY) HYPERTENSION (9) DVT prophylaxis Assessment/Plan: - OOB - SCDs Code(s): BZT8510 - Visit type - Emergency Visit Emergency Visit: Yes ED Registration Date: 07/17/17 Care time: The patient presented to the Emergency Department on the above date and was hospitalized for further evaluation of their emergent condition. - New Patient This patient is new to me today: Yes Date on this admission: 07/17/17 - Critical Care Critical Care patient: No
[2017-07-17 23:28] VITALS: BMI 27.7
[2017-07-17] MEDS: ATORVASTATIN CA 10 MG TABLET (FP) PO SCH (23:30)
[2017-07-18] MEDS: CLOPIDOGREL BISULFATE 75 MG TABLET (FP) PO SCH ×2 (06:59→07:01)
[2017-07-18] MEDS: CARVEDILOL 3.125 MG TABLET (FP) PO SCH ×2 (06:59→07:00)
[2017-07-18 08:09] LABS: BASOPHIL 1.9 % (0-2.0); EOSINOPHIL 2.1 % (0-4.5); MCH 28.2 pg (25.7-33.7); MCHC 31.9 g/dl (32.0-35.9); MEAN CELL VOLUME 88.6 fl (80-96); MEAN PLT VOLUME 9.9 fl (7.5-11.1); NEUTROPHILS 61.7 % (42.8-82.8); PLATELET COUNT 117 K/MM3 (134-434); RDW 17.1 % (11.9-15.9); WHITE BLOOD COUNT 5.7 K/mm3 (4.0-10.0)
[2017-07-18 08:45] LABS: ANION GAP 14 (8-16); CALCIUM 8.4 mg/dL (8.5-10.1); CO2 25 mmol/L (21-32); CREATININE 2.1 mg/dL (0.7-1.3); GLUCOSE,RANDOM 99 mg/dL (74-106); MAGNESIUM 2.4 mg/dL (1.8-2.4)
[2017-07-18 08:50] LABS: TROPONIN I 0.03 ng/ml (0.00-0.05)
[2017-07-18] MEDS ORDERED: FUROSEMIDE 40 MG/4 ML INJECTABLE VIAL IVPUSH SCH ×2 (10:00→14:00)
[2017-07-18] MEDS ORDERED: busPIRone HCL 5 MG TABLET PO SCH ×2 (10:00→22:00)
--- NOTE | 2017-07-18 10:02 | PN ---
Progress Note (short form) - Note Progress Note: Subjective: The patient was seen and examined at the bedside, he states that he came into the ED because he felt weak and had anxiety. He reports his symptoms have resolved since coming to the ED and feels better now. Current Medications Generic Name Dose Route Start Last Admin Trade Name Freq PRN Reason Stop Dose Admin Alprazolam 0.25 mg 07/18/17 09:59 Xanax - PO DAILY PRN ANXIETY Aspirin 81 mg 07/18/17 10:00 Ecotrin - PO DAILY JEREMÍAS Atorvastatin Calcium 10 mg 07/17/17 22:00 07/17/17 23:30 Lipitor - PO Not Given HS JEREMÍAS Bacitracin 1 applic 07/18/17 10:00 Bacitracin - TP BID JEREMÍAS Buspirone HCl 5 mg 07/18/17 22:00 Buspar - PO HS JEREMÍAS Carvedilol 3.125 mg 07/18/17 07:00 07/18/17 07:00 Coreg - PO Not Given DAILY@0700 JEREMÍAS Carvedilol 6.25 mg 07/18/17 22:00 Coreg - PO HS JEREMÍAS Clopidogrel Bisulfate 75 mg 07/18/17 07:00 07/18/17 07:01 Plavix - PO Not Given AM JEREMÍAS Furosemide 40 mg 07/18/17 10:00 Lasix Injection - IVPUSH BID JEREMÍAS Spironolactone 25 mg 07/18/17 10:00 Aldactone - PO DAILY JEREMÍAS Objective: Vital Signs Period Temp Pulse Resp BP Sys/العلي Pulse Ox Last 24 Hr 97.6 F-98.5 F 64-92 18-20 120-160/75-80 98-100 Physical Exam: General: NAD, A&Ox3 Lungs: CTA bilaterally Heart: RRR, S1S2 Abd: Soft, non-tender, non-distended. Normoactive bowel sounds Ext: 3+ b/l lower extremity pitting edema CBCD WBC 5.7 K/mm3 (4.0-10.0) 07/18/17 07:20 RBC 3.86 M/mm3 (4.00-5.60) L 07/18/17 07:20 Hgb 10.9 GM/dL (11.7-16.9) L 07/18/17 07:20 Hct 34.2 % (35.4-49) L 07/18/17 07:20 MCV 88.6 fl (80-96) 07/18/17 07:20 MCHC 31.9 g/dl (32.0-35.9) L 07/18/17 07:20 RDW 17.1 % (11.9-15.9) H 07/18/17 07:20 Plt Count 117 K/MM3 (134-434) L 07/18/17 07:20 MPV 9.9 fl (7.5-11.1) 07/18/17 07:20 CMP Sodium 136 mmol/L (136-145) 07/18/17 07:20 Potassium 3.7 mmol/L (3.5-5.1) 07/18/17 07:20 Chloride 97 mmol/L (98-107) L 07/18/17 07:20 Carbon Dioxide 25 mmol/L (21-32) 07/18/17 07:20 Anion Gap 14 (8-16) 07/18/17 07:20 BUN 35 mg/dL (7-18) H 07/18/17 07:20 Creatinine 2.1 mg/dL (0.7-1.3) H 07/18/17 07:20 Creat Clearance w eGFR 30.02 (>60) 07/17/17 15:40 Random Glucose 99 mg/dL (74-106) 07/18/17 07:20 Calcium 8.4 mg/dL (8.5-10.1) L 07/18/17 07:20 Total Bilirubin 1.7 mg/dL (0.2-1.0) H D 07/17/17 15:40 AST 21 U/L (15-37) D 07/17/17 15:40 ALT 17 U/L (12-78) 07/17/17 15:40 Alkaline Phosphatase 116 U/L (45-117) D 07/17/17 15:40 Total Protein 6.8 g/dl (6.4-8.2) 07/17/17 15:40 Albumin 3.6 g/dl (3.4-5.0) 07/17/17 15:40 CARDIAC ENZYMES Creatine Kinase 79 IU/L (39-308) 07/17/17 15:40 Troponin I 0.03 ng/ml (0.00-0.05) D 07/18/17 07:20 Assessment: This is an 87 year old male with PMHx of HTN, hyperlipidemia, CAD s/ p CABG 6 years ago, nSTEMI s/p stent 05/30, CKD, BPH, COPD, who presented to the ED with anxiety and weakness. Plan: 1) Anxiety and weakness - PT evaluation - Resume Xanax - Symptoms resolved 2) Chronic systolic and diastolic heart failure - Does not appear to be in exacerbation at this time - Daily weight: 79 KG - Chest X-ray with clearing of prior failure - Continue Lasix 40mg bid - Continue spironolactone - Continue Coreg CAD s/p stenting 05/2017 - Continue ASA and Plavix - Continue Lipitor - F/u cardiology consult 3) BPH - Continue Buspar 4) COPD - Not on any home medications - Stable 5) F/E/N: - Sodium controlled diet - Monitor electrolytes 6) Prophylaxis: - Heparin 5,000u sq bid - PT evaluation 7) Dispo: - SNF vs. home with VNS CODE STATUS: FULL CODE Visit type - Emergency Visit Emergency Visit: Yes ED Registration Date: 07/17/17 Care time: The patient presented to the Emergency Department on the above date and was hospitalized for further evaluation of their emergent condition. - New Patient This patient is new to me today: Yes Date on this admission: 07/18/17 - Critical Care Critical Care patient: No
[2017-07-18] MEDS: ASPIRIN COATED 81 MG TABLET.EC PO SCH (10:21)
[2017-07-18] MEDS: SPIRONOLACTONE 25 MG TABLET (FP) PO SCH (10:21)
--- NOTE | 2017-07-18 10:53 | CONS ---
DATE OF CONSULTATION: 07/18/2017 READMISSION: 07/17/2017 REQUESTED BY: Sofia Mckee DO HISTORY OF PRESENT ILLNESS: The patient is an 87-year-old gentleman with a history of coronary artery disease, status post coronary artery bypass grafting, status post NSTEMI associated with severe left ventricular failure and diagnosed was transferred to [facility] where he underwent a PCI/stenting for a right coronary artery stenosis. Patient was discharged. He stopped taking his medicines against medical advice and was readmitted with acute left ventricular failure. Patient has been experiencing recurring dizziness and initially it was attributed to his medications. On his readmission, he was told that he is a candidate for an ICD which he refused, was discharged, and had a syncopal episode while driving, was brought back, and workup disclosed that he had nonsustained ventricular tachycardia, was transferred back to [facility] where he had an ICD for primary prophylaxis. Since then, he has had multiple admissions all related to complaints of dizziness, nausea, and stops his medicines and has recurring episodes of heart failure. He was readmitted on July 17, 2017, because he stopped taking his medicines as he was complaining of dizziness and became progressively short of breath and developed increasing pedal edema and was found to be in heart failure. No history of chest pain or discomfort either at rest or with exertion, history of intermittent paroxysmal nocturnal dyspnea and orthopnea. No history of cough or expectoration. He is known to have chronic obstructive pulmonary disease, chronic kidney disease, and BPH. On questioning, patient states that when he has episodes of dizziness the room is spinning, he becomes nauseous, has persistent chronic tinnitus, and these symptoms have occurred even prior to his initial hospitalization and have been going on for several years. CURRENT MEDICATIONS: 1. Carvedilol 3.125 mg in the morning and 6.25 mg in the evening. 2. Atorvastatin 10 mg p.o. daily. 3. Buspar 5 mg p.o. daily. 4. Lasix 40 mg IV daily. 5. Spironolactone 25 mg p.o. daily. 6. Aspirin 81 mg p.o. daily. 7. Clopidogrel 75 mg p.o. daily. PHYSICAL EXAMINATION: General: An 87-year-old gentleman was in no acute distress, was resting comfortably, there was no pallor, cyanosis, clubbing or jaundice. Neck: Supple, no jugular venous distention but positive hepatojugular reflux, carotids were 2+, upstrokes normal, no bruits were heard, and no thyromegaly was present. Heart: PMI was in the 5th intercostal space, no heaves or thrills, heart sounds were distant, grade 1/6 ejection systolic murmur was heard at the 2nd right intercostal space ending in early systole, there was a faint decrescendo grade 1/6 systolic murmur heard at the lower left sternal border. No diastolic murmur or gallops were heard. Lungs: Bibasilar fine crepitations. Abdomen: Soft, nontender, no hepatosplenomegaly or palpable masses were felt. Bowel sounds are present. No bruits were appreciated. Extremities: Bilateral pitting edema 2+, no calf tenderness was elicited. Dorsalis pedis and posterior tibial pulses could not be palpated. Femoral pulses were 2+. LABORATORY DATA: CBC: WBC count 5700, hemoglobin 10.9 g/dL, platelet count 117,000. Chemistry: Sodium 136, potassium 3.7, chloride 97, BUN 35, creatinine 2.1 mg/dL. BNP 42,454.53. X-ray, chest. Impression: Pacemaker, previous organic heart disease, no acute pathology, clearing of prior failure. IMPRESSION: 1. Recurrence of congestive heart failure precipitated by poor compliance. 2. History of severe left ventricular systolic dysfunction. 3. Coronary artery disease, status post coronary artery bypass grafting. 4. Status post [id number] myocardial infarction, status post percutaneous coronary intervention/stenting (drug-eluting stent). 5. Chronic kidney disease. 6. Recurring dizziness associated with nausea and tinnitus is consistent with vertigo, probably related to previous bilateral mastoid surgery. 7. Hypertension, currently normotensive. 8. Poor compliance. RECOMMENDATIONS: 1. ENT evaluation. 2. Possible neurological evaluation to exclude the possibility of posterior circulation deficit. 3. Consider adding Antivert on a regular basis if there is no contraindication. 4. Daily weight. 5. Risk modifications. Thank you for your referral. Yours sincerely. RADHA ASIF M.D. [id number]
[2017-07-18] MEDS: FUROSEMIDE 40 MG/4 ML INJECTABLE VIAL IVPUSH SCH ×2 (11:39→21:34)
[2017-07-18] MEDS: BACITRACIN 15 GM TUBE TOPICAL OINTMENT TP SCH ×2 (11:39→21:35)
[2017-07-18] MEDS: ALPRAZolam 0.25 MG TABLET PO PRN ×2 (13:36→21:34)
--- NOTE | 2017-07-18 14:16 | EKG ---
Test Reason : Blood Pressure : / mmHG Vent. Rate : 087 BPM Atrial Rate : 087 BPM P-R Int : 166 ms QRS Dur : 138 ms QT Int : 428 ms P-R-T Axes : 044 -53 131 degrees QTc Int : 515 ms SINUS RHYTHM WITH OCCASIONAL PREMATURE VENTRICULAR COMPLEXES POSSIBLE LEFT ATRIAL ENLARGEMENT LEFT AXIS DEVIATION LEFT VENTRICULAR HYPERTROPHY WITH QRS WIDENING AND REPOLARIZATION ABNORMALITY ABNORMAL ECG WHEN COMPARED WITH ECG OF 05-JUL-2017 00:50, FUSION COMPLEXES ARE NO LONGER PRESENT LEFT BUNDLE BRANCH BLOCK IS NO LONGER PRESENT Confirmed by CHARLEE QUIROZ MD ([id number]) on 07/18/2017 2:15:41 PM Referred By: Confirmed By:CHARLEE QUIROZ MD
[2017-07-18] MEDS ORDERED: PT OWN MED DRAWER 7, Y5N ONE (21:01)
[2017-07-18] MEDS: ATORVASTATIN CA 10 MG TABLET (FP) PO SCH (21:34)
[2017-07-18] MEDS: CARVEDILOL 6.25 MG TABLET (FP) PO SCH (21:34)
[2017-07-19] MEDS: CLOPIDOGREL BISULFATE 75 MG TABLET (FP) PO SCH (06:27)
[2017-07-19] MEDS: CARVEDILOL 3.125 MG TABLET (FP) PO SCH (06:27)
[2017-07-19 07:58] LABS: MCH 28.3 pg (25.7-33.7); MCHC 32.4 g/dl (32.0-35.9); MEAN CELL VOLUME 87.4 fl (80-96); MEAN PLT VOLUME 10.5 fl (7.5-11.1); PLATELET COUNT 106 K/MM3 (134-434); RDW 16.7 % (11.9-15.9); WHITE BLOOD COUNT 4.3 K/mm3 (4.0-10.0)
[2017-07-19 08:11] LABS: ANION GAP 13 (8-16); CALCIUM 7.9 mg/dL (8.5-10.1); CO2 27 mmol/L (21-32); GLUCOSE,RANDOM 95 mg/dL (74-106)
[2017-07-19] MEDS ORDERED: POTASSIUM CHLORIDE ORAL LIQUID 20 MEQ/15 ML PO ONE (09:05)
[2017-07-19] MEDS: ASPIRIN COATED 81 MG TABLET.EC PO SCH (09:39)
[2017-07-19] MEDS: BACITRACIN 15 GM TUBE TOPICAL OINTMENT TP SCH ×2 (09:39→21:25)
[2017-07-19] MEDS: SPIRONOLACTONE 25 MG TABLET (FP) PO SCH (11:33)
--- NOTE | 2017-07-19 11:35 | PN ---
Physical Exam: SUBJECTIVE: Patient seen and examined. Per cards, pt reported dizziness with room spinning, with nausea and tinnitus. Today, pt oob states his lower ext edema is improved OBJECTIVE: Vital Signs Period Temp Pulse Resp BP Sys/العلي Pulse Ox Last 24 Hr 97.2 F-98.3 F 77-94 18-20 109-146/62-89 98-98 PE Neuro: alert, awake, cn 2-12intact Pulm: r sided basilar crackles, left clear CV: s1 s2 rrr Abd: s nt nd +bs Ext: +2 pedal/le edema Laboratory Results - last 24 hr 07/18/17 07/19/17 07/19/17 11:40 07:00 07:00 WBC 4.3 RBC 3.52 L Hgb 9.9 L Hct 30.7 L MCV 87.4 MCH 28.3 MCHC 32.4 RDW 16.7 H Plt Count 106 L MPV 10.5 Sodium 137 Potassium 3.2 L Chloride 97 L Carbon Dioxide 27 Anion Gap 13 BUN 34 H Creatinine 2.0 H Random Glucose 95 Calcium 7.9 L Troponin I 0.03 Active Medications Generic Name Dose Route Start Last Admin Trade Name Freq PRN Reason Stop Dose Admin Alprazolam 0.25 mg 07/18/17 09:59 07/18/17 21:34 Xanax - PO 0.25 mg DAILY PRN Administration ANXIETY Aspirin 81 mg 07/18/17 10:00 07/19/17 09:39 Ecotrin - PO 81 mg DAILY JEREMÍAS Administration Atorvastatin Calcium 10 mg 07/17/17 22:00 07/18/17 21:34 Lipitor - PO 10 mg HS JEREMÍAS Administration Bacitracin 1 applic 07/18/17 10:00 07/19/17 09:39 Bacitracin - TP 1 applic BID JEREMÍAS Administration Buspirone HCl 5 mg 07/18/17 22:00 07/18/17 21:34 Buspar - PO 5 mg HS JEREMÍAS Administration Carvedilol 3.125 mg 07/18/17 07:00 07/19/17 06:27 Coreg - PO 3.125 mg DAILY@0700 JEREMÍAS Administration Carvedilol 6.25 mg 07/18/17 22:00 07/18/17 21:34 Coreg - PO 6.25 mg HS JEREMÍAS Administration Clopidogrel Bisulfate 75 mg 07/18/17 07:00 07/19/17 06:27 Plavix - PO 75 mg AM JEREMÍAS Administration Spironolactone 25 mg 07/18/17 10:00 07/18/17 10:21 Aldactone - PO 25 mg DAILY JEREMÍAS Administration Assessment: 87 year old male with PMHx of HTN, hyperlipidemia, CAD s/p CABG 6 years ago, nSTEMI s/p stent 05/30, CKD, BPH, COPD, admitted with anxiety and weakness. Plan: 1. Tinnitus - ENT eval - hx bilateral mastoidectomy, long time lasix user 2. Dizziness - Trial meclizine 3. Hypotension - Asymptomatic - Stop IV lasix - Hold diuresis today 4. Anxiety - Increase Xanax 0.5mg - Increase buspar 7.5mg HS 5. Chronic systolic and diastolic heart failure - Resume po lasix - Hold Spironolactone - Continue Coreg 6. CAD s/p stenting 05/2017 - Continue ASA and Plavix - Continue Lipitor - Awaiting 7. COPD - Not on any home medications - Stable 8. Prophylaxis: - Heparin 5,000u sq bid - PT 9. Hypokalemia - Replete 40meq x1 Dispo - SNF vs. home with VNS Visit type - Emergency Visit Emergency Visit: Yes ED Registration Date: 07/17/17 Care time: The patient presented to the Emergency Department on the above date and was hospitalized for further evaluation of their emergent condition. - New Patient This patient is new to me today: Yes Date on this admission: 07/19/17 - Critical Care Critical Care patient: No
[2017-07-19] MEDS ORDERED: PT OWN MED DRAWER 7, Y5N ONE (14:43)
[2017-07-19] MEDS: MECLIZINE HCL 12.5 MG TABLET PO SCH ×2 (15:52→21:24)
[2017-07-19] MEDS ORDERED: FUROSEMIDE 40 MG/4 ML INJECTABLE VIAL IVPUSH ONE (17:20)
--- NOTE | 2017-07-19 18:34 | PN ---
Progress Note (short form) - Note Progress Note: 87 year male admitted with progressive LV failure,ppted by poor compliance and d /cing all his medications.Patient has recurring vertigo which he attributed to medications. On questioning he has had similar symptoms dating back many years and remembers being under the care of an ENT physician for over "10 years". 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 He also as chronic dizziness, tinnitus, severe vertigo accompaned by nausea and vomiting. H/o intrmittent otorrhea and h/o severe deafness. Started on antivert and feels better Known case of CAD s/p CABG,recent NSTEMI,s/p PCI/stenting of the RCA, s/p ICD for primary prophylaxis, severe LV systolic dysfunction, hypertension, CKD, COPD , and hypercholesterlemia. No SOB, PND or chest pain. No h/o palpitations. Active Medications Alprazolam (Xanax -) 0.5 mg PO DAILY PRN PRN Reason: ANXIETY Aspirin (Ecotrin -) 81 mg PO DAILY [facility] Last Admin: 07/19/17 09:39 Dose: 81 mg Atorvastatin Calcium (Lipitor -) 10 mg PO HS [facility] Last Admin: 07/18/17 21:34 Dose: 10 mg Bacitracin (Bacitracin -) 1 applic TP BID [facility] Last Admin: 07/19/17 09:39 Dose: 1 applic Buspirone HCl (Buspar -) 7.5 mg PO HS [facility] Carvedilol (Coreg -) 3.125 mg PO DAILY@0700 [facility] Last Admin: 07/19/17 06:27 Dose: 3.125 mg Carvedilol (Coreg -) 6.25 mg PO HS [facility] Last Admin: 07/18/17 21:34 Dose: 6.25 mg Clopidogrel Bisulfate (Plavix -) 75 mg PO AM [facility] Last Admin: 07/19/17 06:27 Dose: 75 mg Furosemide (Lasix Injection -) 60 mg IVPUSH DAILY [facility] Meclizine HCl (Antivert -) 12.5 mg PO BID [facility] Last Admin: 07/19/17 15:52 Dose: 12.5 mg Multivitamins/Minerals/Vitamin C (Tab-A-Vit -) 1 tab PO DAILY [facility] Spironolactone (Aldactone -) 25 mg PO DAILY [facility] Last Admin: 07/19/17 11:33 Dose: Not Given 87 year old male in no acute distress, no pallor, cyanosis, clubbing or jaundice. Last Vital Signs Temp Pulse Resp BP Pulse Ox 97.6 F 81 18 101/57 99 07/19/17 10:00 07/19/17 10:00 07/19/17 10:00 07/19/17 10:00 07/19/17 09:00 Intake & Output 07/19/17 07/19/17 07/19/17 07:59 15:59 23:59 Intake Total 240 700 Output Total 300 Balance 240 400 Weight 173 lb 9 oz Intake: IVPB 0 Oral 240 700 Output: Urine 300 Void 300 Emesis 0 Other: Voiding Method Toilet Urinal # Unmeasured Voids Void 0 Bowel Movement Yes Weight Measurement Method [facility] NECK: Supple, no JVD, slight +VE HJR. carotids 2+, no bruits heard, no thyromegaly. HEART: PMI in the 5th ICS, no heaves or thrills. S1 and S2 are normal. Grade II/ systolic murmur at thre apex. DUARTE II/ at the 2nd right ICS, ending in early systole.No diastolic murmur or gallops heard. LUNGS: Fine bibasilar creps at both bases. ABDOMEN: Soft, nontender, no organomegaly or masses felt. EXT: 2+ bilateral pitting edema, no calf tendreness. CBC, BMP 07/19/17 07:00 07/19/17 07:00 IMPRESSION: 1. Chronic vertigo related to chronic otitis media. 2. CAD,recent NSTEMI, s/p PCI/ stenting. 3. S/P ICD. 4. CKD. 5. Severe LV systolic dysfunction. 6. Poor compliance. 7. Hypertension. 8. Anemia, eiology: Probably due to CKD 9. Hypercholesterlemia. 10. Hypokalemia. REcommendation: 1. Continue current therapy. 2. Progressive ambutation. 3. ENT evaluation. 3. Antivert for vertigo. 4.Close f/u of CBC. 5. Stool quiac. 6. Correction of K+ 7. Serum Mg. level.
[2017-07-19] MEDS: ATORVASTATIN CA 10 MG TABLET (FP) PO SCH (21:24)
[2017-07-19] MEDS: CARVEDILOL 6.25 MG TABLET (FP) PO SCH (21:24)
[2017-07-19] MEDS: busPIRone HCL 5 MG TABLET PO SCH (21:25)
[2017-07-20] MEDS: CARVEDILOL 3.125 MG TABLET (FP) PO SCH (06:09)
[2017-07-20] MEDS: CLOPIDOGREL BISULFATE 75 MG TABLET (FP) PO SCH (06:09)
[2017-07-20 08:44] LABS: ANION GAP 13 (8-16); CALCIUM 8.5 mg/dL (8.5-10.1); CO2 26 mmol/L (21-32); GLUCOSE,RANDOM 103 mg/dL (74-106)
[2017-07-20] MEDS ORDERED: PT OWN MED DRAWER 7, Y5N ONE ×2 (09:50→21:34)
[2017-07-20] MEDS: MECLIZINE HCL 12.5 MG TABLET PO SCH ×2 (09:51→21:59)
[2017-07-20] MEDS: BACITRACIN 15 GM TUBE TOPICAL OINTMENT TP SCH ×3 (09:51→22:10)
[2017-07-20] MEDS: SPIRONOLACTONE 25 MG TABLET (FP) PO SCH (09:51)
[2017-07-20] MEDS: MULTIVITAMINS (DAILY MVI) TABLET (FP) PO SCH (09:52)
[2017-07-20] MEDS: busPIRone HCL 5 MG TABLET PO SCH ×2 (09:52→22:10)
[2017-07-20] MEDS: ASPIRIN COATED 81 MG TABLET.EC PO SCH (09:52)
[2017-07-20] MEDS: FUROSEMIDE 40 MG/4 ML INJECTABLE VIAL IVPUSH SCH (09:52)
[2017-07-20] MEDS ORDERED: BENZOCAINE/MENTH/CETYLPYRD CL 1 EACH LOZENGE MM PRN (09:57)
[2017-07-20] MEDS ORDERED: ALBUTEROL SO4 0.083% IH SOL 2.5 MG/3 ML VIAL.NEB. NEB ONE (09:57)
[2017-07-20] MEDS: ALPRAZolam 0.25 MG TABLET PO PRN (10:01)
--- NOTE | 2017-07-20 10:03 | PN ---
Physical Exam: SUBJECTIVE: Patient seen and examined. He has throat pain and reports some sob and cough. He wants something for this throat. Denies CP, able to get oob to side without distress. He does report his dizziness and tinnitus is "calming" OBJECTIVE: Vital Signs Period Temp Pulse Resp BP Sys/العلي Pulse Ox Last 24 Hr 97.6 F-98.5 F 76-83 18-24 110-121/50-74 98 PE Neuro: alert, awake, cn 2-12intact Pulm: wet cough, +nc, fine basilar crackles otherwise lungs clear CV: s1 s2 rrr 2/6 murmur Abd: s nt nd +bs Ext: +2 pedal/le edema Laboratory Results - last 24 hr 07/20/17 06:00 Sodium 136 Potassium 3.9 D Chloride 97 L Carbon Dioxide 26 Anion Gap 13 BUN 38 H Creatinine 2.0 H Random Glucose 103 Calcium 8.5 Active Medications Generic Name Dose Route Start Last Admin Trade Name Freq PRN Reason Stop Dose Admin Albuterol Sulfate 1 amp 07/20/17 09:57 Ventolin 0.083% Nebulizer Soln - NEB 07/20/17 09:58 ONCE ONE Alprazolam 0.5 mg 07/19/17 13:53 Xanax - PO DAILY PRN ANXIETY Aspirin 81 mg 07/18/17 10:00 07/19/17 09:39 Ecotrin - PO 81 mg DAILY JEREMÍAS Administration Atorvastatin Calcium 10 mg 07/17/17 22:00 07/19/17 21:24 Lipitor - PO 10 mg HS JEREMÍAS Administration Bacitracin 1 applic 07/18/17 10:00 07/19/17 21:25 Bacitracin - TP 1 applic BID JEREMÍAS Administration Benzocaine/Menthol 1 each 07/20/17 09:57 Cepacol Lozenge - MM PRN PRN SORE THROAT Buspirone HCl 7.5 mg 07/19/17 13:53 07/19/17 21:25 Buspar - PO 7.5 mg HS JEREMÍAS Administration Carvedilol 3.125 mg 07/18/17 07:00 07/20/17 06:09 Coreg - PO 3.125 mg DAILY@0700 JEREMÍAS Administration Carvedilol 6.25 mg 07/18/17 22:00 07/19/17 21:24 Coreg - PO 6.25 mg HS JEREMÍAS Administration Clopidogrel Bisulfate 75 mg 07/18/17 07:00 07/20/17 06:09 Plavix - PO 75 mg AM JEREMÍAS Administration Furosemide 60 mg 07/20/17 10:00 Lasix Injection - IVPUSH DAILY JEREMÍAS Guaifenesin 10 ml 07/20/17 09:58 Robitussin - PO Q6H PRN COUGH Famotidine/Sodium Chloride 50 mls @ 100 mls/hr 07/20/17 09:58 Pepcid 20 Mg Premixed Ivpb - IVPB 07/20/17 10:27 ONCE ONE Meclizine HCl 12.5 mg 07/19/17 14:00 07/19/17 21:24 Antivert - PO 12.5 mg BID JEREMÍAS Administration Multivitamins/Minerals/Vitamin C 1 tab 07/20/17 10:00 Tab-A-Vit - PO DAILY JEREMÍAS Spironolactone 25 mg 07/18/17 10:00 07/19/17 11:33 Aldactone - PO Not Given DAILY JEREMÍAS Assessment: 87 year old male with PMHx of HTN, hyperlipidemia, CAD s/p CABG 6 years ago, nSTEMI s/p stent 05/30, CKD, BPH, COPD, admitted with anxiety and weakness. Plan: 1. Tinnitus - ENT eval requested - hx bilateral mastoidectomy, long time lasix user 2. Dizziness - Improving - Cont trial meclizine 3. SOB/COPD - Dose not appear in exacerbation - Albuterol neb x1 - CXR eval sob - Pepcid x1 - Cepacole lozenge 4. Hypotension - Resolved 5. Anxiety - Xanax 0.5mg prn daily - Increased buspar 7.5mg HS 6. Chronic systolic and diastolic heart failure - Lasix 60mg IV - Resume Spironolactone - Continue Coreg 7. CAD s/p stenting 05/2017 - Continue ASA and Plavix - Continue Lipitor 8. Prophylaxis - Heparin 5,000u sq bid - PT 9. Hypokalemia - Resolved Dispo - SNF vs. home with VNS Visit type - Emergency Visit Emergency Visit: Yes ED Registration Date: 07/19/17 Care time: The patient presented to the Emergency Department on the above date and was hospitalized for further evaluation of their emergent condition. - New Patient This patient is new to me today: No - Critical Care Critical Care patient: No
[2017-07-20] MEDS: guaiFENesin 200 MG/10 ML 10 ML UNIT-DOSE CUPS PO PRN ×2 (10:10→22:00)
[2017-07-20] MEDS: FAMOTIDINE 20 MG/50 ML IVPB 50 ML IVPB ONE ×2 (10:49→11:25)
--- NOTE | 2017-07-20 14:01 | CON.ENT ---
Consult Consult Specialty:: ENT Referred by:: Aracelis Duobn Reason for Consultation:: bilateral mastoiditis - History of Present Illness Chief Complaint: tinntus, ear drainage History of Present Illness: 87 yo M with multiple medical problems s/p ME and coronary artery stents 2017 recent onset dizziness/vertigo also tinnitus longstanding hearing loss, uses bilateral behind the ear hearing aids for many years s/p bilateral mastoidectomy also recent cough, improved with cough medication - History Source History Provided By: Patient, Medical Record Limitations to Obtaining History: No Limitations - Past Medical History SOFTWARE SECURITY ARCHITECT: Yes: Vertigo Cardio/Vascular: Yes: CAD, CHF, HTN, Hyperlipdemia Pulmonary: Yes: COPD Renal/: Yes: Renal Inusuff ENT: Yes: Other (hearing loss (hearing aids) ) - Past Surgical History Past Surgical History: Yes: CABG Additional Surgical History: bilateral mastoidectomy - Alcohol/Substance Use Hx Alcohol Use: No - Smoking History Smoking history: Former smoker Have you smoked in the past 12 months: No Aproximately how many cigarettes per day: 0 If you are a former smoker, when did you quit?: 35 years ago Home Medications - Allergies Allergies/Adverse Reactions: Allergies Allergy/AdvReac Type Severity Reaction Status Date / Time amoxicillin trihydrate AdvReac Mild gi upset Verified 07/17/17 15:00 [From Augmentin] atorvastatin calcium AdvReac Mild gi upset Verified 07/17/17 15:00 [From Lipitor] potassium clavulanate AdvReac Mild gi upset Verified 07/17/17 15:00 [From Augmentin] - Home Medications Home Medications: Ambulatory Orders Simvastatin 20 mg PO HS 06/10/17 Bacitracin - [Bacitracin Topical Ointment -] 1 applic TP BID #1 tube 06/21/17 Clopidogrel Bisulfate [Plavix -] 75 mg PO AM #30 tab 06/21/17 Potassium Chloride 20 meq PO DAILY 06/27/17 Aspirin [Ecotrin] 81 mg PO DAILY #30 tablet. 06/30/17 Alprazolam [Xanax] 0.25 mg PO DAILY PRN #3 tablet MDD 1 07/12/17 Buspirone HCl [Buspar -] 5 mg PO DAILY #1 tablet MDD 5 07/12/17 Carvedilol 6.25 mg PO DAILY #30 tablet 07/12/17 Carvedilol [Coreg -] 3.125 mg PO DAILY@0700 #30 tablet 07/12/17 Furosemide [Lasix] 40 mg PO BID #60 tablet 07/12/17 Spironolactone [Aldactone] 25 mg PO DAILY #30 tablet 07/12/17 Review of Systems - Review of Systems HENT: reports: Hearing Loss, Ringing in Ears (right ear drainage) Respiratory: reports: Cough Physical Exam-ENT Vital Signs: Vital Signs Temperature 98.2 F 07/20/17 09:46 Pulse Rate 76 07/20/17 09:46 Respiratory Rate 24 07/20/17 09:46 Blood Pressure 112/50 07/20/17 09:46 O2 Sat by Pulse Oximetry (%) 98 07/19/17 21:00 Constitutional: Yes: No Distress, Calm Head: Yes: WNL Face: Yes: WNL Eyes: Yes: WNL Nose: Yes: Septum Deviated (to right , no bleeding pus) Nasal Passage: Yes: WNL Oral/Pharynx: Yes: WNL (upper and lower dentures, no postnasal drip, voice clear and strong) Outer Ear: Yes: Other (skin breakdown left helical root from hearing aid tubing) Ear Canal: Yes: Other (bilateral mastoid cavities with debris, dry left ( debrided) and moist crust with purulence right (debrided)) Tympanic Membrane: Yes: Other (s/p mastoidectomy) Imaging - Results Cat Scan: Report Reviewed, Image Reviewed (CT head brain WNL, s/p bilateral mastoidectomy, severe deviation of septum to right, sinuses without opacification of air fluid levels) Problem List - Problems (1) Chronic mastoiditis, bilateral Assessment/Plan: bilateral mastoid cavities, with infection right and debris left bilateral debridement of mastoid cavities performed ofloxacin eardrops recommended for right ear bid x 7 days needs outpatient follow-up for periodic debridement of mastoid cavities dry ear precautions Code(s): H70.13 - CHRONIC MASTOIDITIS, BILATERAL (2) Hearing loss Assessment/Plan: longstanding bilateral hearing loss, 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 Recommend: continue hearing aid use patient should see his credit office manager/kitchen steward after discharge to adjust his left ear hearing aid, since the tubing appears to be causing skin erosion of the left pinna. Code(s): H91.90 - UNSPECIFIED HEARING LOSS, UNSPECIFIED EAR Qualifiers: Hearing loss type: mixed conductive and sensorineural Laterality: bilateral Qualified Code(s): 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, bilateral; 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 , bilateral (3) Cough Assessment/Plan: multifactorial responding to cough medication continue present management if persistent or worsening then consider diagnostic flexible laryngoscopy Thank you for consultation, Aleksandr May MD FACS Code(s): R05 - COUGH
[2017-07-20] MEDS ORDERED: OFLOXACIN 0.3% OTIC SOLUTION 5 ML BOTTLE AD SCH (14:15)
--- NOTE | 2017-07-20 15:52 | PN ---
Progress Note (short form) - Note Progress Note: 87 year male, known case of CAD, s/p CABG, s/p NSTEMI, s/p PCI/stenting, severe LV systolic dysfunction, s/p ICD admitted with progressive LV failure, ppted by poor compliance and d/cing all his medications.H/o chronic vertigo related to chronic otitis media, h/o tinnitis and deafness. H/o intrmittent otorrhea. No chest pain or discomfort, no dyspnea. Complaining of dry cough, no chills or fever. Seen by ENT. No further dizziness, tolerating antivert. Active Medications Generic Name Dose Route Start Last Admin Trade Name Freq PRN Reason Stop Dose Admin Alprazolam 0.5 mg 07/19/17 13:53 07/20/17 10:01 Xanax - PO 0.5 mg DAILY PRN Administration ANXIETY Aspirin 81 mg 07/18/17 10:00 07/20/17 09:52 Ecotrin - PO 81 mg DAILY JEREMÍAS Administration Atorvastatin Calcium 10 mg 07/17/17 22:00 07/19/17 21:24 Lipitor - PO 10 mg HS JEREMÍAS Administration Bacitracin 1 applic 07/18/17 10:00 07/20/17 09:51 Bacitracin - TP 1 applic BID JEREMÍAS Administration Benzocaine/Menthol 1 each 07/20/17 09:57 07/20/17 10:11 Cepacol Lozenge - MM 1 each PRN PRN Administration SORE THROAT Buspirone HCl 7.5 mg 07/19/17 13:53 07/20/17 09:52 Buspar - PO 7.5 mg HS JEREMÍAS Administration Carvedilol 3.125 mg 07/18/17 07:00 07/20/17 06:09 Coreg - PO 3.125 mg DAILY@0700 JEREMÍAS Administration Carvedilol 6.25 mg 07/18/17 22:00 07/19/17 21:24 Coreg - PO 6.25 mg HS JEREMÍAS Administration Clopidogrel Bisulfate 75 mg 07/18/17 07:00 07/20/17 06:09 Plavix - PO 75 mg AM JEREMÍAS Administration Furosemide 60 mg 07/20/17 10:00 07/20/17 09:52 Lasix Injection - IVPUSH 60 mg DAILY JEREMÍAS Administration Guaifenesin 10 ml 07/20/17 09:58 07/20/17 10:10 Robitussin - PO 10 ml Q6H PRN Administration COUGH Meclizine HCl 12.5 mg 07/19/17 14:00 07/20/17 09:51 Antivert - PO 12.5 mg BID JEREMÍAS Administration Multivitamins/Minerals/Vitamin C 1 tab 07/20/17 10:00 07/20/17 09:52 Tab-A-Vit - PO 1 tab DAILY JEREMÍAS Administration Ofloxacin 5 drop 07/20/17 15:00 Floxin Otic (Ear) Solution - AD 07/27/17 14:59 BID JEREMÍAS Spironolactone 25 mg 07/18/17 10:00 07/20/17 09:51 Aldactone - PO 25 mg DAILY JEREMÍAS Administration 87 year old male in no acute distress, no pallor, cyanosis, clubbing or jaundice. Vital Signs - 8 hr 07/20/17 09:46 Temperature 98.2 F Pulse Rate 76 Respiratory 24 Rate Blood Pressure 112/50 NECK: Supple, no JVD, slight +VE HJR. carotids 2+, no bruits heard, no thyromegaly. HEART: PMI in the 5th ICS, no heaves or thrills. S1 and S2 are normal. Grade II/ systolic murmur at thre apex. DUARTE II/ at the 2nd right ICS, ending in early systole.No diastolic murmur or gallops heard. LUNGS: Fine bibasilar creps at both bases. ABDOMEN: Soft, nontender, no organomegaly or masses felt. EXT: 2+ bilateral pitting edema, no calf tendreness. CBC, BMP 07/19/17 07:00 07/20/17 06:00 IMPRESSION: 1. Nonproductive cough and sore throat, etiology: ? UTI. 2. CAD,recent NSTEMI, s/p PCI/ stenting. 3. S/P ICD. 4. CKD. 5. Severe LV systolic dysfunction. 6. Poor compliance. 7. Hypertension. 8. Anemia, eiology: Probably due to CKD 9. Hypercholesterlemia. 10. Hypokalemia. 11. Chronic Vertigo. RECOMMENDATIONS: 1. Continue current therapy. 2. Progressive ambulation. 3. F/U CBC
[2017-07-20] MEDS: OFLOXACIN 0.3% OTIC SOLUTION 5 ML BOTTLE AD SCH ×2 (17:03→21:59)
[2017-07-20] MEDS: CARVEDILOL 6.25 MG TABLET (FP) PO SCH (21:58)
[2017-07-20] MEDS: ATORVASTATIN CA 10 MG TABLET (FP) PO SCH (22:00)
[2017-07-21] MEDS: CLOPIDOGREL BISULFATE 75 MG TABLET (FP) PO SCH (06:16)
[2017-07-21] MEDS: guaiFENesin 200 MG/10 ML 10 ML UNIT-DOSE CUPS PO PRN ×2 (06:16→17:30)
[2017-07-21] MEDS: CARVEDILOL 3.125 MG TABLET (FP) PO SCH (06:16)
[2017-07-21 08:49] LABS: BASOPHIL 1.2 % (0-2.0); EOSINOPHIL 4.9 % (0-4.5); MCH 28.4 pg (25.7-33.7); MCHC 32.3 g/dl (32.0-35.9); MEAN CELL VOLUME 87.8 fl (80-96); MEAN PLT VOLUME 10.2 fl (7.5-11.1); NEUTROPHILS 63.6 % (42.8-82.8); PLATELET COUNT 94 K/MM3 (134-434); RDW 17.3 % (11.9-15.9); WHITE BLOOD COUNT 4.5 K/mm3 (4.0-10.0)
[2017-07-21 09:03] LABS: ANION GAP 10 (8-16); CALCIUM 8.3 mg/dL (8.5-10.1); CO2 30 mmol/L (21-32); GLUCOSE,RANDOM 148 mg/dL (74-106)
[2017-07-21] MEDS ORDERED: PT OWN MED DRAWER 7, Y5N ONE ×2 (10:31→10:47)
[2017-07-21] MEDS: MECLIZINE HCL 12.5 MG TABLET PO SCH ×2 (10:34→21:53)
[2017-07-21] MEDS: ASPIRIN COATED 81 MG TABLET.EC PO SCH (10:34)
[2017-07-21] MEDS: SPIRONOLACTONE 25 MG TABLET (FP) PO SCH (10:34)
[2017-07-21] MEDS: BACITRACIN 15 GM TUBE TOPICAL OINTMENT TP SCH ×2 (10:34→21:53)
[2017-07-21] MEDS: MULTIVITAMINS (DAILY MVI) TABLET (FP) PO SCH (10:35)
[2017-07-21] MEDS: FUROSEMIDE 40 MG/4 ML INJECTABLE VIAL IVPUSH SCH (10:35)
[2017-07-21] MEDS: OFLOXACIN 0.3% OTIC SOLUTION 5 ML BOTTLE AD SCH ×3 (10:35→21:58)
[2017-07-21] MEDS: FUROSEMIDE 40 MG TABLET (FP) PO SCH ×2 (12:19→14:03)
[2017-07-21] MEDS ORDERED: ACETAMINOPHEN 325 MG TABLET (FP) PO PRN (12:27)
--- NOTE | 2017-07-21 14:36 | DS ---
Physical Exam: SUBJECTIVE: Patient seen and examined OBJECTIVE: Vital Signs Period Temp Pulse Resp BP Sys/العلي Pulse Ox Last 24 Hr 97.4 F-98.6 F 73-82 20-22 98-127/48-82 99 PHYSICAL EXAM GENERAL: The patient is awake, alert, and fully oriented, in no acute distress. HEAD: Normal with no signs of trauma. EYES: PERRL, extraocular movements intact, sclera anicteric, conjunctiva clear. ENT: Ears normal, nares patent, oropharynx clear without exudates, moist mucous membranes. NECK: Trachea midline, full range of motion, supple. LUNGS: Breath sounds equal, clear to auscultation bilaterally, no wheezes, no crackles, no accessory muscle use. HEART: Regular rate and rhythm, S1, S2 without murmur, rub or gallop. ABDOMEN: Soft, nontender, nondistended, normoactive bowel sounds, no guarding, no rebound, no hepatosplenomegaly, no masses. EXTREMITIES: 2+ pulses, warm, well-perfused, no edema. NEUROLOGICAL: Cranial nerves II through XII grossly intact. Normal speech, gait not observed. PSYCH: Normal mood, normal affect. SKIN: Warm, dry, normal turgor, no rashes or lesions noted. LABS Laboratory Results - last 24 hr 07/21/17 07/21/17 06:45 06:45 WBC 4.5 RBC 3.52 L Hgb 10.0 L Hct 30.9 L MCV 87.8 MCH 28.4 MCHC 32.3 RDW 17.3 H Plt Count 94 L MPV 10.2 Neutrophils % 63.6 Lymphocytes % 18.5 Monocytes % 11.8 H Eosinophils % 4.9 H D Basophils % 1.2 Sodium 138 Potassium 3.5 Chloride 98 Carbon Dioxide 30 Anion Gap 10 BUN 38 H Creatinine 2.0 H Random Glucose 148 H D Calcium 8.3 L HOSPITAL COURSE: Date of Admission:07/19/17 Date of Discharge: 07/21/17 Discharge Summary Reason For Visit: ACUTE ON CHRONIC CONGESTIVE HEART FAILURE,DIZZINES Current Active Problems Acute exacerbation of CHF (congestive heart failure) (Acute) Anxiety (Acute) COPD (chronic obstructive pulmonary disease) (Acute) Cough (Acute) Dizziness (Acute) Hearing loss (Acute) Orthopnea (Acute) SOB (shortness of breath) (Acute) CAD (coronary artery disease) (Chronic) CHF (congestive heart failure) (Chronic) Chronic kidney disease (CKD) stage G3a/A2, moderately decreased glomerular filtration rate (GFR) between 45-59 mL/min/1.73 square meter and albuminuria creatinine ratio between 30-299 mg/g (Chronic) Condition: Fair - Instructions Referrals: Anmol Casey MD [Primary Care Provider] - - Home Medications Comprehensive Discharge Medication List: Ambulatory Orders Simvastatin 20 mg PO HS 06/10/17 Bacitracin - [Bacitracin Topical Ointment -] 1 applic TP BID #1 tube 06/21/17 Clopidogrel Bisulfate [Plavix -] 75 mg PO AM #30 tab 06/21/17 Potassium Chloride 20 meq PO DAILY 06/27/17 Aspirin [Ecotrin] 81 mg PO DAILY #30 tablet. 06/30/17 Alprazolam [Xanax] 0.25 mg PO DAILY PRN #3 tablet MDD 1 07/12/17 Buspirone HCl [Buspar -] 5 mg PO DAILY #1 tablet MDD 5 07/12/17 Carvedilol 6.25 mg PO DAILY #30 tablet 07/12/17 Carvedilol [Coreg -] 3.125 mg PO DAILY@0700 #30 tablet 07/12/17 Furosemide [Lasix] 40 mg PO BID #60 tablet 07/12/17 Spironolactone [Aldactone] 25 mg PO DAILY #30 tablet 07/12/17
--- NOTE | 2017-07-21 14:46 | DS ---
Physical Exam: SUBJECTIVE: Patient seen and examined OBJECTIVE: Vital Signs Period Temp Pulse Resp BP Sys/العلي Pulse Ox Last 24 Hr 97.4 F-98.6 F 73-82 20-22 98-127/48-82 99 PHYSICAL EXAM GENERAL: The patient is awake, alert, and fully oriented, in no acute distress. HEAD: Normal with no signs of trauma. LUNGS: Mild bibasilar crackles HEART: Regular rate and rhythm, S1, S2 without murmur, rub or gallop. ABDOMEN: Soft, nontender, nondistended, normoactive bowel sounds, no guarding, no rebound LOWER EXTREMITIES: 3+ bilateral edema, warm, well-perfused NEUROLOGICAL: Cranial nerves II through XII grossly intact. Normal speech, gait not observed. LABS Laboratory Results - last 24 hr 07/21/17 07/21/17 06:45 06:45 WBC 4.5 RBC 3.52 L Hgb 10.0 L Hct 30.9 L MCV 87.8 MCH 28.4 MCHC 32.3 RDW 17.3 H Plt Count 94 L MPV 10.2 Neutrophils % 63.6 Lymphocytes % 18.5 Monocytes % 11.8 H Eosinophils % 4.9 H D Basophils % 1.2 Sodium 138 Potassium 3.5 Chloride 98 Carbon Dioxide 30 Anion Gap 10 BUN 38 H Creatinine 2.0 H Random Glucose 148 H D Calcium 8.3 L HOSPITAL COURSE: Date of Admission:07/19/17 Date of Discharge: 07/21/17 pre post PT Minutes to complete discharge: 35 Discharge Summary Reason For Visit: ACUTE ON CHRONIC CONGESTIVE HEART FAILURE,DIZZINES Current Active Problems Acute exacerbation of CHF (congestive heart failure) (Acute) Anxiety (Acute) COPD (chronic obstructive pulmonary disease) (Acute) Cough (Acute) Dizziness (Acute) Hearing loss (Acute) Orthopnea (Acute) SOB (shortness of breath) (Acute) CAD (coronary artery disease) (Chronic) CHF (congestive heart failure) (Chronic) Chronic kidney disease (CKD) stage G3a/A2, moderately decreased glomerular filtration rate (GFR) between 45-59 mL/min/1.73 square meter and albuminuria creatinine ratio between 30-299 mg/g (Chronic) Condition: Improved - Instructions Diet, Activity, Other Instructions: Two prescriptions have been sent your pharmacy: 1. The first prescription is for ear drops for your right ear. Take these for 7 days; 2. The other prescription is for a higher dose of Lasix. You have been increased from 40mg twice daily to 60mg twice daily. You should take the HIGHER DOSE of Lasix from now on. You should follow up with Dr. May, the ENT doctor, within 2 weeks of your discharge. You need periodic cleaning of your mastoid cavities. You should also make an appointment to see your commercial electrician/ emr analyst. Your left hearing aid needs an adjustment because it is causing skin irritation to your ear. Follow up with Dr. Casey within 2 weeks of your discharge. Referrals: Amnol Casey MD [Primary Care Provider] - 2 Weeks Kelvin Campuzano MD [Staff Physician] - 2 Weeks Aleksandr May MD [Staff Physician] - 2 Weeks Disposition: HOME - Home Medications Comprehensive Discharge Medication List: Ambulatory Orders Simvastatin 20 mg PO HS 06/10/17 Bacitracin - [Bacitracin Topical Ointment -] 1 applic TP BID #1 tube 06/21/17 Clopidogrel Bisulfate [Plavix -] 75 mg PO AM #30 tab 06/21/17 Potassium Chloride 20 meq PO DAILY 06/27/17 Aspirin [Ecotrin] 81 mg PO DAILY #30 tablet. 06/30/17 Alprazolam [Xanax] 0.25 mg PO DAILY PRN #3 tablet MDD 1 07/12/17 Buspirone HCl [Buspar -] 5 mg PO DAILY #1 tablet MDD 5 07/12/17 Carvedilol 6.25 mg PO DAILY #30 tablet 07/12/17 Carvedilol [Coreg -] 3.125 mg PO DAILY@0700 #30 tablet 07/12/17 Furosemide [Lasix] 40 mg PO BID #60 tablet 07/12/17 Spironolactone [Aldactone -] 25 mg PO DAILY #30 tablet 07/12/17 Ofloxacin Otic [Floxin Otic -] 5 drop AD BID #1 bottle 07/21/17
--- NOTE | 2017-07-21 17:33 | PN ---
Physical Exam: SUBJECTIVE: Patient seen and examined. Feels his medications make him sick. OBJECTIVE: Vital Signs Period Temp Pulse Resp BP Sys/العلي Pulse Ox Last 24 Hr 97.5 F-98.6 F 73-82 20-22 110-127/48-82 99-100 GENERAL: The patient is awake, alert, and fully oriented, in no acute distress. HEAD: Normal with no signs of trauma. LUNGS: Mild bibasilar crackles HEART: Regular rate and rhythm, S1, S2 without murmur, rub or gallop. ABDOMEN: Soft, nontender, nondistended, normoactive bowel sounds, no guarding, no rebound LOWER EXTREMITIES: 3+ bilateral edema, warm, well-perfused NEUROLOGICAL: Cranial nerves II through XII grossly intact. Normal speech, gait not observed. LABS Laboratory Results - last 24 hr 07/21/17 07/21/17 06:45 06:45 WBC 4.5 RBC 3.52 L Hgb 10.0 L Hct 30.9 L MCV 87.8 MCH 28.4 MCHC 32.3 RDW 17.3 H Plt Count 94 L MPV 10.2 Neutrophils % 63.6 Lymphocytes % 18.5 Monocytes % 11.8 H Eosinophils % 4.9 H D Basophils % 1.2 Sodium 138 Potassium 3.5 Chloride 98 Carbon Dioxide 30 Anion Gap 10 BUN 38 H Creatinine 2.0 H Random Glucose 148 H D Calcium 8.3 L Active Medications Generic Name Dose Route Start Last Admin Trade Name Freq PRN Reason Stop Dose Admin Acetaminophen 650 mg 07/21/17 12:27 07/21/17 12:36 Tylenol - PO 650 mg Q6H PRN Administration FEVER OR PAIN Alprazolam 0.5 mg 07/19/17 13:53 07/20/17 10:01 Xanax - PO 0.5 mg DAILY PRN Administration ANXIETY Aspirin 81 mg 07/18/17 10:00 07/21/17 10:34 Ecotrin - PO 81 mg DAILY JEREMÍAS Administration Atorvastatin Calcium 10 mg 07/17/17 22:00 07/20/17 22:00 Lipitor - PO 10 mg HS JEREMÍAS Administration Bacitracin 1 applic 07/18/17 10:00 07/21/17 10:34 Bacitracin - TP 1 applic BID JEREMÍAS Administration Benzocaine/Menthol 1 each 07/20/17 09:57 07/20/17 10:11 Cepacol Lozenge - MM 1 each PRN PRN Administration SORE THROAT Buspirone HCl 7.5 mg 07/19/17 13:53 07/20/17 22:10 Buspar - PO Not Given HS JEREMÍAS Carvedilol 3.125 mg 07/18/17 07:00 07/21/17 06:16 Coreg - PO 3.125 mg DAILY@0700 JEREMÍAS Administration Carvedilol 6.25 mg 07/18/17 22:00 07/20/17 21:58 Coreg - PO 6.25 mg HS JEREMÍAS Administration Clopidogrel Bisulfate 75 mg 07/18/17 07:00 07/21/17 06:16 Plavix - PO 75 mg AM JEREMÍAS Administration Furosemide 60 mg 07/21/17 12:00 07/21/17 14:03 Lasix - PO 60 mg BID@0600,1400 JEREMÍAS Administration Guaifenesin 10 ml 07/20/17 09:58 07/21/17 17:30 Robitussin - PO 10 ml Q6H PRN Administration COUGH Meclizine HCl 12.5 mg 07/19/17 14:00 07/21/17 10:34 Antivert - PO 12.5 mg BID JEREMÍAS Administration Multivitamins/Minerals/Vitamin C 1 tab 07/20/17 10:00 07/21/17 10:35 Tab-A-Vit - PO 1 tab DAILY JEREMÍAS Administration Ofloxacin 5 drop 07/20/17 15:00 07/21/17 10:35 Floxin Otic (Ear) Solution - AD 07/27/17 14:59 5 drop BID JEREMÍAS Administration Spironolactone 25 mg 07/18/17 10:00 07/21/17 10:34 Aldactone - PO 25 mg DAILY JEREMÍAS Administration ASSESSMENT/PLAN: Assessment: 87 year old male with PMHx of HTN, hyperlipidemia, CAD s/p CABG 6 years ago, nSTEMI s/p stent 05/30, CKD, BPH, COPD, admitted with anxiety and weakness. Tinnitus --seen and evaluated by ENT: tinnitus may be related to the way patient is wearing his hearing aids behind the ears; should see supervising librarian Chronic mastoiditis, bilateral --bilateral mastoid cavities with infection on right and debris on left; ENT debrided both cavities --ofloxacin eardrops for right ear x 7 days Dizziness, improved COPD, chronic --lungs clear Hypotension, resolved Anxiety --continue xanax and buspar Chronic systolic and diastolic heart failure --discussed with Dr. Lainez, discharge home with Lasix PO 60mg daily --continue spironolactone, carvedilol CAD s/p stenting 05/2017 --continue ASA, Plavix, Lipitor DVT prophylaxis: subq heparin Dispo: patient is medically cleared for discharge. He does not want to go home and does not want to go to SNF. He wants to stay in the hospital. He insists he cannot walk. Walked 50 feet with PT two days ago. Should get another PT evaluation tomorrow, and pre-post evaluation, both ordered. relations manager Najma had long conversation with patient about his options. Full code. Visit type - Emergency Visit Emergency Visit: Yes ED Registration Date: 07/19/17 Care time: The patient presented to the Emergency Department on the above date and was hospitalized for further evaluation of their emergent condition. - New Patient This patient is new to me today: Yes Date on this admission: 07/21/17 - Critical Care Critical Care patient: No
[2017-07-21] MEDS: CARVEDILOL 6.25 MG TABLET (FP) PO SCH (21:54)
[2017-07-21] MEDS: busPIRone HCL 5 MG TABLET PO SCH (21:54)
[2017-07-21] MEDS: ATORVASTATIN CA 10 MG TABLET (FP) PO SCH ×2 (21:54→21:56)
[2017-07-22] MEDS: FUROSEMIDE 40 MG TABLET (FP) PO SCH (05:37)
[2017-07-22] MEDS: ALPRAZolam 0.25 MG TABLET PO PRN (05:42)
[2017-07-22] MEDS: CARVEDILOL 3.125 MG TABLET (FP) PO SCH (06:16)
[2017-07-22] MEDS: CLOPIDOGREL BISULFATE 75 MG TABLET (FP) PO SCH (06:16)
[2017-07-22] MEDS ORDERED: PT OWN MED DRAWER 7, Y5N ONE ×2 (11:01→12:06)
--- NOTE | 2017-07-22 11:35 | DS ---
Physical Exam: SUBJECTIVE: Patient seen and examined at the bedside. Asked patient to re-consider rehab/nursing facility since he is unsteady on his feet and needs supervision, but he is refusing. States he has heard alot of " bad things" about rehab and does not want to go. He wants to go home with [facility]NS. OBJECTIVE: Patient ambulated in the room, slow gait with RW Refusing rehab Vital Signs Period Temp Pulse Resp BP Sys/العلي Pulse Ox Last 24 Hr 97.6 F-98.0 F 66-79 20-20 110-125/62-71 100 PHYSICAL EXAM GENERAL: The patient is awake, alert, and fully oriented, in no acute distress. HEAD: Normal with no signs of trauma. EYES: PERRL, extraocular movements intact, sclera anicteric, conjunctiva clear. ENT: Ears normal, nares patent, oropharynx clear without exudates, moist mucous membranes. NECK: Trachea midline, full range of motion, supple. LUNGS: Diminished breath sounds bilaterally HEART: Regular rate and rhythm, S1, S2 without murmur, rub or gallop. ABDOMEN: Soft, nontender, nondistended, normoactive bowel sounds, no guarding, no rebound NEUROLOGICAL: Normal speech, slow gait with RW PSYCH: Normal mood, normal affect. SKIN: +2 bilateral lower pitting edema LABS HOSPITAL COURSE: Date of Admission:07/19/17 Date of Discharge: 07/22/17 Patient is an 87 year old male with a significant medical history of CAD, NSTEMI , s/p stent, s/p AICD, CABG, COPD and anxiety. He presented to the ED on 2016 with shortness of breath and dizziness. He reported a decreased appetite secondary to the increased shortness of breath. 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 Patient refusing SNF/rehab. Wants to go home. He has capacity to make his own decisions. Full code. Minutes to complete discharge: 60 Discharge Summary Reason For Visit: ACUTE ON CHRONIC CONGESTIVE HEART FAILURE,DIZZINES Current Active Problems Acute exacerbation of CHF (congestive heart failure) (Acute) Anxiety (Acute) COPD (chronic obstructive pulmonary disease) (Acute) Cough (Acute) Dizziness (Acute) Hearing loss (Acute) Orthopnea (Acute) SOB (shortness of breath) (Acute) CAD (coronary artery disease) (Chronic) CHF (congestive heart failure) (Chronic) Chronic kidney disease (CKD) stage G3a/A2, moderately decreased glomerular filtration rate (GFR) between 45-59 mL/min/1.73 square meter and albuminuria creatinine ratio between 30-299 mg/g (Chronic) Condition: Improved - Instructions Diet, Activity, Other Instructions: Mr. Howe: Two prescriptions have been sent your pharmacy: 1. The first prescription is for ear drops for your right ear. Take these for 7 days; 2. The other prescription is for a higher dose of Lasix. You have been increased from 40mg twice daily to 60mg twice daily. You should take the HIGHER DOSE of Lasix from now on. You should follow up with Dr. May, the ENT doctor, within 2 weeks of your discharge. You need periodic cleaning of your mastoid cavities. 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 Your left hearing aid needs an adjustment because it is causing skin irritation to your ear. Follow up with Dr. Casey within 2 weeks of your discharge. Please call us with any questions you may have. Elisha Garnett NP [facility] Referrals: Anmol Casey MD [Primary Care Provider] - 2 Weeks Kelvin Campuzano MD [Staff Physician] - 2 Weeks Aleksandr May MD [Staff Physician] - 2 Weeks Disposition: HOME - Home Medications Comprehensive Discharge Medication List: Ambulatory Orders Simvastatin 20 mg PO HS 06/10/17 Bacitracin - [Bacitracin Topical Ointment -] 1 applic TP BID #1 tube 06/21/17 Clopidogrel Bisulfate [Plavix -] 75 mg PO AM #30 tab 06/21/17 Potassium Chloride 20 meq PO DAILY 06/27/17 Aspirin [Ecotrin] 81 mg PO DAILY #30 tablet. 06/30/17 Alprazolam [Xanax] 0.25 mg PO DAILY PRN #3 tablet MDD 1 07/12/17 Buspirone HCl [Buspar -] 5 mg PO DAILY #1 tablet MDD 5 07/12/17 Carvedilol 6.25 mg PO DAILY #30 tablet 07/12/17 Carvedilol [Coreg -] 3.125 mg PO DAILY@0700 #30 tablet 07/12/17 Spironolactone [Aldactone -] 25 mg PO DAILY #30 tablet 07/12/17 Furosemide [Lasix -] 60 mg PO BID #60 tablet 07/21/17 Ofloxacin Otic [Floxin Otic -] 5 drop AD BID #1 bottle 07/21/17 This patient is new to me today: Yes Date on this admission: 07/22/17 Emergency Visit: Yes ED Registration Date: 07/19/17 Care time: The patient presented to the Emergency Department on the above date and was hospitalized for further evaluation of their emergent condition. Critical Care patient: No - Discharge Referral Referred to [facility] No
[2017-07-22] MEDS: ASPIRIN COATED 81 MG TABLET.EC PO SCH (11:59)
[2017-07-22] MEDS: OFLOXACIN 0.3% OTIC SOLUTION 5 ML BOTTLE AD SCH (11:59)
[2017-07-22] MEDS: MULTIVITAMINS (DAILY MVI) TABLET (FP) PO SCH (11:59)
[2017-07-22] MEDS: MECLIZINE HCL 12.5 MG TABLET PO SCH (12:00)
[2017-07-22] MEDS: BACITRACIN 15 GM TUBE TOPICAL OINTMENT TP SCH (12:00)
[2017-07-22] MEDS: guaiFENesin 200 MG/10 ML 10 ML UNIT-DOSE CUPS PO PRN (12:37)
[2017-07-22 13:26] VITALS: PULSE 77
[2017-07-22] MEDS: SPIRONOLACTONE 25 MG TABLET (FP) PO SCH (14:13)
[2017-07-22 16:24] VITALS: BP 99/56; TEMP 97.3
== END 2017-07-22 14:14 | disposition home or self-care (01) | DRG 291 ==
LOC: JER 14:45 → JERBED 20:38 → J8W 23:00 → OBSVTOIN 07-19 17:22
PROVIDERS: ADMIT Internal Medicine; ATTEND Nurse Practitioner Family
DX: I13.0 Hypertensive heart and chronic kidney disease with heart failure and stage 1 through stage 4 chronic kidney disease, or unspecified chronic kidney disease (principal); I50.43 Acute on chronic combined systolic (congestive) and diastolic (congestive) heart failure; N18.3 Chronic kidney disease, stage 3 (moderate); I25.10 Atherosclerotic heart disease of native coronary artery without angina pectoris; I25.2 Old myocardial infarction; J44.9 Chronic obstructive pulmonary disease, unspecified; E78.00 Pure hypercholesterolemia, unspecified; F41.8 Other specified anxiety disorders; G47.09 Other insomnia; N40.0 Benign prostatic hyperplasia without lower urinary tract symptoms; R06.02 Shortness of breath; R42 Dizziness and giddiness; E87.6 Hypokalemia; H70.13 Chronic mastoiditis, bilateral; H93.13 Tinnitus, bilateral; D63.8 Anemia in other chronic diseases classified elsewhere; H66.90 Otitis media, unspecified, unspecified ear; H91.8X3 Other specified hearing loss, bilateral; Z95.1 Presence of aortocoronary bypass graft; Z87.891 Personal history of nicotine dependence; Z91.14 Patient's other noncompliance with medication regimen; Z95.5 Presence of coronary angioplasty implant and graft; Z95.810 Presence of automatic (implantable) cardiac defibrillator
CPT/HCPCS: 36415; 70450-TC; 71010-TC; 71020-TC; 80048; 80053; 83735; 83880; 84100; 84484; 85025; 85027; 93005; 93010; 94761; 97116-GP; 97161-GP; 99284-25; G0378

== ENCOUNTER 2017-07-22 19:00 | Emergency (ER) | payer BC ==
[2017-07-22] MEDS ORDERED: FUROSEMIDE 40 MG/4 ML INJECTABLE VIAL IVPB ONE (19:43)
[2017-07-22] MEDS ORDERED: ALBUTEROL SO4 0.083% IH SOL 2.5 MG/3 ML VIAL.NEB. NEB ONE ×2 (19:43→20:02)
[2017-07-22 19:48] VITALS: BP 121/81; PULSE 80; TEMP 98.1; BMI 30.8
[2017-07-22] MEDS ORDERED: ACETAMINOPHEN 325 MG TABLET (FP) PO ONE (19:55)
--- NOTE | 2017-07-22 20:00 | PDOC ---
History of Present Illness - General Chief Complaint: Respiratory Stated Complaint: SOB Time Seen by Provider: 07/22/17 19:10 History Source: Patient Exam Limitations: No Limitations - History of Present Illness Initial Comments: 07/22/17 21:31 87yo Male patient w/ PmHx: HTN, HLD, CKD, BPH, COPD, CAD s/o CABG (6yrs ago), NSTEMI w/ stent and AICD placement 05/30 presents to ED c/o headache and anxiety. Patient states he was discharge earlier today and prescription for antivert which was sent to pharmacy. 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 Associated SOB. He denies CP, Abd pain, diff breathing, fever, back pain, n/v/d, or any other complaints at this time. Pulmonary- Dr. Campuzano/ Dr. Casey PCP- Dr. Frank Timing/Duration: reports: this evening. denies: just prior to arrival, other, constant, changing over time, getting worse, gone now, intermittent, week, yesterday, this afternoon, this morning Severity: reports: mild. denies: moderate, severe Episode Description: See HPI Possible Cause: Yes: frequent episodes. No: no prior episodes, other, allergen exposure, chronic episodes, illness exposure, irritant gases exposure, occasional episodes, smoke exposure, unknown cause Modifying Factors: worse with: activity, albuterol inhaler, albuterol nebulizer , antibiotics, coughing, lying down, oxygen, rest, other Associated Symptoms: denies: denies symptoms, chest pain/soreness, cough, dizziness, earache, facial pain, fever/chills, headache, lightheadedness, muscle aches, nasal congestion, nasal drainage, shortness of breath, sinus infection, sore throat, wheezing, other Past History - Travel Traveled outside of the country in the last 30 days: No Close contact w/someone who was outside of country & ill: No - Past Medical History Allergies/Adverse Reactions: Allergies Allergy/AdvReac Type Severity Reaction Status Date / Time amoxicillin trihydrate AdvReac Mild gi upset Verified 07/22/17 19:38 [From Augmentin] atorvastatin calcium AdvReac Mild gi upset Verified 07/22/17 19:38 [From Lipitor] potassium clavulanate AdvReac Mild gi upset Verified 07/22/17 19:38 [From Augmentin] Home Medications: Ambulatory Orders Simvastatin 20 mg PO HS 06/10/17 Bacitracin - [Bacitracin Topical Ointment -] 1 applic TP BID #1 tube 06/21/17 Clopidogrel Bisulfate [Plavix -] 75 mg PO AM #30 tab 06/21/17 Potassium Chloride 20 meq PO DAILY 06/27/17 Aspirin [Ecotrin] 81 mg PO DAILY #30 tablet. 06/30/17 Alprazolam [Xanax] 0.25 mg PO DAILY PRN #3 tablet MDD 1 07/12/17 Buspirone HCl [Buspar -] 5 mg PO DAILY #1 tablet MDD 5 07/12/17 Carvedilol 6.25 mg PO DAILY #30 tablet 07/12/17 Carvedilol [Coreg -] 3.125 mg PO DAILY@0700 #30 tablet 07/12/17 Spironolactone [Aldactone -] 25 mg PO DAILY #30 tablet 07/12/17 Furosemide [Lasix -] 60 mg PO BID #60 tablet 07/21/17 Ofloxacin Otic [Floxin Otic -] 5 drop AD BID #1 bottle 07/21/17 Cardiac Disorders: Yes (CABG (5 years ago), CAD, [place] w/ stent) COPD: Yes CHF: Yes Diabetes: No HTN: Yes Hypercholesterolemia: Yes Psychiatric Problems: Yes (anxiety, insomnia) - Surgical History Cardiac Surgery: Yes (OPEN HEART SX, cardiac stent 05/30, AICD 05/30) - Immunization History Immunization Up to Date: Yes - Suicide/Smoking/Psychosocial Hx Smoking Status: No Smoking History: Unknown if ever smoked Have you smoked in the past 12 months: No Number of Cigarettes Smoked Daily: 0 If you are a former smoker, when did you quit?: 35 years ago Information on smoking cessation initiated: No Hx Alcohol Use: No Drug/Substance Use Hx: No Substance Use Type: Alcohol Hx Substance Use Treatment: No Respiratory Specific PMHX - Complaint Specific PMHX Angina: No Bronchitis: No Pneumonia: No Pulmonary Embolus: No TB (Tuberculosis): No Review of Systems - Review of Systems Able to Perform ROS?: Yes Is the patient limited [place] proficient: No Constitutional: No: Chills, Fever Respiratory: Yes: Cough, Shortness of Breath. No: Stridor, Wheezing, Productive cough Cardiac (ROS): Yes: Edema. No: Chest Pain, Chest Tightness ABD/GI: No: Constipated, Diarrhea, Nausea, Poor Appetite, Poor Fluid Intake, Vomiting : No: Burning, Dysuria Musculoskeletal: No: Back Pain Integumentary: No: Bruising, Erythema, Rash Neurological: Yes: Headache. No: Numbness, Paresthesia, Seizure, Tremors, Weakness, Ataxia, Dizziness All Other Systems: Reviewed and Negative *Physical Exam - Vital Signs Last Vital Signs Temp Pulse Resp BP Pulse Ox 98.1 F 80 14 121/81 99 07/22/17 19:38 07/22/17 19:38 07/22/17 19:38 07/22/17 19:38 07/22/17 19:38 - Physical Exam General Appearance: Yes: Nourished, Appropriately Dressed. No: Apparent Distress, Mild Distress, Moderate Distress, Severe Distress Respiratory/Chest: positive: Rhonchi. negative: Chest Tender, Lungs Clear, Normal Breath Sounds, Respiratory Distress, Accessory Muscle Use, Labored Respiration, Rapid RR Cardiovascular: positive: Regular Rhythm, Regular Rate, Edema (Chronic) Gastrointestinal/Abdominal: positive: Normal Bowel Sounds, Soft, Distended. negative: Guarding, Rebound, Tenderness Musculoskeletal: positive: Normal Inspection. negative: CVA Tenderness, Decreased Range of Motion, Vertebral Tenderness Extremity: positive: Normal Capillary Refill, Normal Range of Motion, Pedal Edema, Swelling. 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 Patient states he just wants to be treated for his anxiety/h/a with antivert. He does not want any care done at this time. He states, "everytime I am here they do the same shit, I just want my antivert to treat my anxiety and h/a and send me home." *DC/Admit/Observation/Transfer Diagnosis at time of Disposition: Left against medical advice Headache Qualifiers: Headache type: tension-type Headache chronicity pattern: acute headache Intractability: not intractable Qualified Code(s): G44.209 - Tension-type headache, unspecified, not intractable; G44.209 - Tension-type headache, unspecified, not intractable - Discharge Dispostion Disposition: AGAINST MEDICAL ADVICE Condition at time of disposition: Stable Admit: No - Patient Instructions Printed Discharge Instructions: DI for Headache Additional Instructions: Follow up with your primary care provider this week for further evaluation. Return if you change your mind for further evaluation. student support advisor your medications from pharmacy tomorrow and take as prescribed. Print Language: [place]
[2017-07-22] MEDS ORDERED: ACETAMINOPHEN 325 MG TABLET (FP) ONE (20:02)
[2017-07-22] MEDS ORDERED: FUROSEMIDE 40 MG/4 ML INJECTABLE VIAL ONE (20:03)
[2017-07-22 20:51] LABS: BASOPHIL 1.1 % (0-2.0); MCH 28.5 pg (25.7-33.7); MCHC 32.3 g/dl (32.0-35.9); MEAN CELL VOLUME 88.4 fl (80-96); MEAN PLT VOLUME 10.9 fl (7.5-11.1); NEUTROPHILS 69.3 % (42.8-82.8); PLATELET COUNT 120 K/MM3 (134-434); RDW 17.8 % (11.9-15.9); WHITE BLOOD COUNT 5.7 K/mm3 (4.0-10.0)
[2017-07-22] MEDS ORDERED: MECLIZINE HCL 25 MG TABLET (FP) PO ONE (21:52)
[2017-07-22] MEDS ORDERED: MECLIZINE HCL 25 MG TABLET (FP) ONE (21:55)
== END 2017-07-22 22:00 | disposition left against medical advice (07) ==
LOC: JER 19:00
PROC: 3E0F7GC Introduction of Other Therapeutic Substance into Respiratory Tract, Via Natural or Artificial Opening (ICD-10-PCS; principal; 2017-07-22)
PROC: 3E033GC Introduction of Other Therapeutic Substance into Peripheral Vein, Percutaneous Approach (ICD-10-PCS; 2017-07-22)
DX: G44.209 Tension-type headache, unspecified, not intractable (principal); I10 Essential (primary) hypertension; E78.5 Hyperlipidemia, unspecified; J44.9 Chronic obstructive pulmonary disease, unspecified; I25.2 Old myocardial infarction
CPT/HCPCS: 36415; 71010-TC; 85025; 99282-25

== ENCOUNTER 2017-08-01 11:18 | Inpatient (IN) | payer BC, OTHER ==
--- NOTE | 2017-08-01 12:03 | PDOC ---
Attending Attestation - Resident Resident Name: Joselito Bardales - ED Attending Attestation I have performed the following: I have examined & evaluated the patient, The case was reviewed & discussed with the resident, I agree w/resident's findings & plan, Exceptions are as noted - HPI HPI: 08/01/17 18:13 87 years old known CHF presents with lower extremity swelling, dyspnea on exertion decreased ability to function at home - Physicial Exam PE: 08/01/17 18:13 Vitals: Triage Vital signs reviewed General Appearance: no acute distress, well nourished well developed, Head: Atraumatic, Chest Wall: Nontender Cardiac: Regular rate and rhythym, DUARTE Lungs: Clear to auscultation bilateral, good air movement bilaterally, Abdomen: Soft, non distended, normal bowel sounds, non tender to palpation Extremities: Bilateral 3+ lower extremity edema Skin: Warm and dry, no rashes or lesions, no rash, no petechiae - Medical Decision Making 08/01/17 19:05 Deamination consistent with CHF exacerbation likely secondary to noncompliance We'll observe patient for IV Lasix diuresis and further management
--- NOTE | 2017-08-01 12:03 | PDOC ---
History of Present Illness - General Chief Complaint: Shortness of Breath Stated Complaint: SWOLLEN LEGS Time Seen by Provider: 08/01/17 12:02 History Source: Patient Exam Limitations: No Limitations - History of Present Illness Initial Comments: 08/01/17 12:24 Patient is an 87 year old male with history of HTN, HLD, CAD s/p CABG (5 years ago), NSTEMI s/p 2x stent and AICD placement (05/30) presenting with c/o lower leg swelling, sob and dizziness. Patient has several recent admissions for similar complaints. He states he has been having symptoms since receiving the ICD. Endorses increased thirst and dry mouth with an increased consumption of water, orange juice and Ensure with a decreased intake of solid foods and an 18 pound weight loss in the last 3 weeks. Patient has poor compliance with medications and states that he thinks his problems are d/t having too many medications to take and endorses skipping his medication this morning. Patient sleeps sitting up in a recliner and is unable to sleep lying flat. He is normally able to ambulate 50 feet without sob but today could not ambulate at all. Endorses headache. Denies fever, chills, chest pain, syncope, abdominal pain, nausea and vomiting. Past History - Past Medical History Allergies/Adverse Reactions: Allergies Allergy/AdvReac Type Severity Reaction Status Date / Time amoxicillin trihydrate AdvReac Mild gi upset Verified 08/01/17 11:27 [From Augmentin] atorvastatin calcium AdvReac Mild gi upset Verified 08/01/17 11:27 [From Lipitor] potassium clavulanate AdvReac Mild gi upset Verified 08/01/17 11:27 [From Augmentin] Home Medications: Ambulatory Orders Simvastatin 20 mg PO HS 06/10/17 Bacitracin - [Bacitracin Topical Ointment -] 1 applic TP BID #1 tube 06/21/17 Clopidogrel Bisulfate [Plavix -] 75 mg PO AM #30 tab 06/21/17 Potassium Chloride 20 meq PO DAILY 06/27/17 Aspirin [Ecotrin] 81 mg PO DAILY #30 tablet. 06/30/17 Buspirone HCl [Buspar -] 5 mg PO DAILY #1 tablet MDD 5 07/12/17 Carvedilol [Coreg -] 3.125 mg PO DAILY@0700 #30 tablet 07/12/17 Spironolactone [Aldactone -] 25 mg PO DAILY #30 tablet 07/12/17 Furosemide [Lasix -] 60 mg PO BID #60 tablet 07/21/17 Ofloxacin Otic [Floxin Otic -] 5 drop AD BID #1 bottle 07/21/17 Carvedilol 6.25 mg PO HS 08/01/17 Meclizine HCl [Antivert -] 12.5 mg PO TID PRN 08/01/17 Cardiac Disorders: Yes (CABG (5 years ago), CAD, [place] w/ stent) COPD: Yes CHF: Yes Diabetes: No HTN: Yes Hypercholesterolemia: Yes Psychiatric Problems: Yes (anxiety, insomnia) - Surgical History Cardiac Surgery: Yes (OPEN HEART SX, cardiac stent 05/30, AICD 05/30) - Immunization History Immunization Up to Date: Yes - Suicide/Smoking/Psychosocial Hx Smoking Status: No Smoking History: Former smoker Have you smoked in the past 12 months: No Number of Cigarettes Smoked Daily: 0 If you are a former smoker, when did you quit?: 35 years ago Information on smoking cessation initiated: No Hx Alcohol Use: No Drug/Substance Use Hx: No Substance Use Type: Alcohol Hx Substance Use Treatment: No Review of Systems - Review of Systems Able to Perform ROS?: Yes Comments:: GEN: Denies fever, chills, recent illness HEENTM: Denies sore throat, Changes in vision, Changes in hearing Respiratory: +Shortness of Breath; Denies Cough Cardiac: Denies Chest Pain, Syncope ABD/GI: Denies Abdominal Pain, Nausea, Vomiting, Diarrhea, Constipation : Denies Dysuria, Burning on urination Musculoskeletal: +LE Edema; Denies muscle or joint pain Integumentary: Denies diaphoresis, rashes, bruises Neurological: +OLIVEIRA, dizziness; Denies weakness All Other Systems Reviewed and Negative Is the patient limited [place] proficient: No *Physical Exam - Vital Signs Last Vital Signs Temp Pulse Resp BP Pulse Ox 97.6 F 86 19 128/71 99 08/01/17 11:27 08/01/17 11:27 08/01/17 11:27 08/01/17 11:27 08/01/17 11:27 - Physical Exam Comments: GENERAL: AAOx3, nourished and generally well appearing, NAD HEAD: NCAT EYES: PERRLA, EOMI, sclera anicteric, conjunctiva clear ENT: Auricles normal inspection, hearing grossly normal, nares patent, no nasal discharge, no congestion, oropharynx clear without exudates, MMM NECK: supple, normal ROM, no LAD, no JVD, no masses RESP: speaking in full sentences, symmetrical chest expansion, b/l crackles, no respiratory distress HEART: RRR, normal S1-S2, 3+ systolic murmur, peripheral pulses normal and equal bilaterally ABDOMEN: soft, NTND, nlBSx4, no guarding, no rebound, no masses MUSCULOSKELETAL: no CVA Tenderness EXTREMITIES: 2-3+ b/l pitting edema to the knee, moving all extremities, full ROM, strength 5/5, sensation grossly intact NEUROLOGICAL: CN II-XII grossly intact, normal speech, normal gait, no focal sensorimotor deficits SKIN: well healed sternal scar with a left subcutaneous ICD, warm, dry, normal turgor, no rashes or lesions noted. ED Treatment Course - LABORATORY CBC & Chemistry Diagram: 08/01/17 12:13 08/01/17 12:13 Medical Decision Making - Medical Decision Making Renato is an 87 year old with significant cardiac history presenting with signs of fluid overload similar to several other recent presentations DDx includes but is not limited to CHF exacerbation, fluid overload (d/t med non compliance, diet), ACS, Lasix monitor and reassess obs admission for dieresis and counseling 08/01/17 12:50 EKG reviewed with no interval change from 06/30 CXR shows not acute pathology 08/01/17 12:53 CBC WBC 5.7 K/mm3 (4.0-10.0) 08/01/17 12:13 RBC 4.05 M/mm3 (4.00-5.60) 08/01/17 12:13 Hgb 11.1 GM/dL (11.7-16.9) L 08/01/17 12:13 Hct 34.9 % (35.4-49) L 08/01/17 12:13 MCV 86.2 fl (80-96) 08/01/17 12:13 MCH 27.5 pg (25.7-33.7) 08/01/17 12:13 MCHC 31.9 g/dl (32.0-35.9) L 08/01/17 12:13 RDW 17.4 % (11.9-15.9) H 08/01/17 12:13 Plt Count 146 K/MM3 (134-434) D 08/01/17 12:13 MPV 9.5 fl (7.5-11.1) D 08/01/17 12:13 Neutrophils % 64.2 % (42.8-82.8) 08/01/17 12:13 Lymphocytes % 19.9 % (8-40) D 08/01/17 12:13 Monocytes % 11.8 % (3.8-10.2) H 08/01/17 12:13 Eosinophils % 2.8 % (0-4.5) 08/01/17 12:13 Basophils % 1.3 % (0-2.0) 08/01/17 12:13 Reviewed, anemia consistent with renal failure 08/01/17 12:54 Laboratory Tests 08/01/17 12:13 PT with INR 15.20 H INR 1.35 H reviewed, consistent with patient's baseline 08/01/17 14:44 CMP Sodium 136 mmol/L (136-145) 08/01/17 12:13 Potassium 4.7 mmol/L (3.5-5.1) D 08/01/17 12:13 Chloride 97 mmol/L (98-107) L 08/01/17 12:13 Carbon Dioxide 33 mmol/L (21-32) H 08/01/17 12:13 Anion Gap 6 (8-16) L 08/01/17 12:13 BUN 38 mg/dL (7-18) H 08/01/17 12:13 Creatinine 2.2 mg/dL (0.7-1.3) H 08/01/17 12:13 Creat Clearance w eGFR 28.45 (>60) 08/01/17 12:13 Random Glucose 126 mg/dL (74-106) H 08/01/17 12:13 Calcium 8.5 mg/dL (8.5-10.1) 08/01/17 12:13 Magnesium 2.6 mg/dL (1.8-2.4) H 08/01/17 12:13 Total Bilirubin 1.1 mg/dL (0.2-1.0) H D 08/01/17 12:13 AST 20 U/L (15-37) 08/01/17 12:13 ALT 17 U/L (12-78) 08/01/17 12:13 Alkaline Phosphatase 114 U/L (45-117) 08/01/17 12:13 Creatine Kinase 65 IU/L (39-308) 08/01/17 12:13 Troponin I 0.02 ng/ml (0.00-0.05) D 08/01/17 12:13 B-Natriuretic Peptide 04865.06 pg/ml (5-450) H 08/01/17 12:13 Total Protein 7.0 g/dl (6.4-8.2) 08/01/17 12:13 Albumin 3.4 g/dl (3.4-5.0) 08/01/17 12:13 Reviewed, patient approx at baseline 08/01/17 14:[address] Casey who agreed with admission under his service for diauresis and consultation regarding medication compliance and possible placement. Spoke with patient about the plan and he verbalized his understanding and agreement. *DC/Admit/Observation/Transfer Diagnosis at time of Disposition: Compliance poor Fluid excess Qualifiers: Hypervolemia type: unspecified Qualified Code(s): E87.70 - Fluid overload, unspecified CHF (congestive heart failure) Qualifiers: Congestive heart failure type: unspecified congestive heart failure type Congestive heart failure chronicity: chronic Qualified Code(s): I50.9 - Heart failure, unspecified - Discharge Dispostion Admit: Yes
[2017-08-01 12:35] LABS: BASOPHIL 1.3 % (0-2.0); EOSINOPHIL 2.8 % (0-4.5); MCH 27.5 pg (25.7-33.7); MCHC 31.9 g/dl (32.0-35.9); MEAN CELL VOLUME 86.2 fl (80-96); MEAN PLT VOLUME 9.5 fl (7.5-11.1); NEUTROPHILS 64.2 % (42.8-82.8); PLATELET COUNT 146 K/MM3 (134-434); RDW 17.4 % (11.9-15.9); WHITE BLOOD COUNT 5.7 K/mm3 (4.0-10.0)
[2017-08-01 12:52] LABS: INR 1.35 (0.82-1.09); PROTHROMBIN TIME (PATIENT) 15.2 SEC (9.98-11.88)
[2017-08-01] MEDS ORDERED: FUROSEMIDE 40 MG/4 ML INJECTABLE VIAL IVPUSH ONE ×2 (12:57→21:48)
[2017-08-01 13:08] LABS: ALBUMIN 3.4 g/dl (3.4-5.0); ANION GAP 6 (8-16); BILIRUBIN,TOTAL 1.1 mg/dL (0.2-1.0); CALCIUM 8.5 mg/dL (8.5-10.1); CO2 33 mmol/L (21-32); CREATININE 2.2 mg/dL (0.7-1.3); GLUCOSE,RANDOM 126 mg/dL (74-106); MAGNESIUM 2.6 mg/dL (1.8-2.4); SGOT/AST 20 U/L (15-37); SGPT/ALT 17 U/L (12-78)
[2017-08-01 13:11] LABS: ALK PHOS 114 U/L (45-117); CPK 65 IU/L (39-308); TROPONIN I 0.02 ng/ml (0.00-0.05)
[2017-08-01] MEDS ORDERED: FUROSEMIDE 40 MG/4 ML INJECTABLE VIAL ONE (13:13)
--- NOTE | 2017-08-01 14:54 | EKG ---
Test Reason : Blood Pressure : / mmHG Vent. Rate : 085 BPM Atrial Rate : 085 BPM P-R Int : 172 ms QRS Dur : 134 ms QT Int : 422 ms P-R-T Axes : 045 -51 115 degrees QTc Int : 502 ms SINUS RHYTHM WITH OCCASIONAL PREMATURE VENTRICULAR COMPLEXES POSSIBLE LEFT ATRIAL ENLARGEMENT LEFT AXIS DEVIATION LEFT BUNDLE BRANCH BLOCK ABNORMAL ECG WHEN COMPARED WITH ECG OF 17-JUL-2017 15:09, LEFT BUNDLE BRANCH BLOCK IS NOW PRESENT Confirmed by GABRIELLA SALAS, CHARLEE ([id number]) on 08/01/2017 2:54:52 PM Referred By: Confirmed By:CHARLEE QUIROZ MD
[2017-08-01 18:39] VITALS: BMI 28.6
[2017-08-01] MEDS ORDERED: MECLIZINE HCL 12.5 MG TABLET PO PRN (21:46)
--- NOTE | 2017-08-01 21:51 | HP ---
Admitting History and Physical - Primary Care Physician PCP: Anmol Casey - Admission Chief Complaint: shortness of breath leg swelling History of Present Illness: 87M PMH of HTN HLD CKD COPD BPH recent NSTEMI last month, PSVT, and CAD s/p CABG x 5 yrs ago at [facility] who presents to the ED sent by his visiting nurse complaining of shortness of breath anxiety and worsening lower extremity edema. Per the patient he has been having shortness of breath which comes and goes. This morning he woke up with anxiety and shortness of breath. He wasn't sure whether the shortness of breath caused the anxiety or the anxiety caused the shortness of breath. He also complains of taste changes in his mouth which he states is due to medications. This is also intermittent. Multiple admissions for CHF exacerbation due to medication non complicance and was on dobutamine gtt for inotropic support at one point a few admissions ago. He denies nausea vomiting fevers chills chest pain cough diarrhea or constipation. Denies any urinary symptoms. Patient sees Dr. Andres for cardiology. Given lasix by ED History Source: Patient, Medical Record - Past Medical History BLIND LACER: Yes: Vertigo Cardiovascular: Yes: CAD, CHF, HTN, Hyperlipdemia Pulmonary: Yes: COPD Renal/: Yes: Renal Inusuff ENT: Yes: Other (hearing loss (hearing aids) ) - Past Surgical History Past Surgical History: Yes: CABG - Smoking History Smoking history: Former smoker Have you smoked in the past 12 months: No Aproximately how many cigarettes per day: 0 If you are a former smoker, when did you quit?: 35 years ago - Alcohol/Substance Use Hx Alcohol Use: Yes (occassional wine) Home Medications - Allergies Allergies/Adverse Reactions: Allergies Allergy/AdvReac Type Severity Reaction Status Date / Time amoxicillin trihydrate AdvReac Mild gi upset Verified 08/01/17 11:27 [From Augmentin] atorvastatin calcium AdvReac Mild gi upset Verified 08/01/17 11:27 [From Lipitor] potassium clavulanate AdvReac Mild gi upset Verified 08/01/17 11:27 [From Augmentin] - Home Medications Home Medications: Ambulatory Orders Simvastatin 20 mg PO HS 06/10/17 Bacitracin - [Bacitracin Topical Ointment -] 1 applic TP BID #1 tube 06/21/17 Clopidogrel Bisulfate [Plavix -] 75 mg PO AM #30 tab 06/21/17 Potassium Chloride 20 meq PO DAILY 06/27/17 Aspirin [Ecotrin] 81 mg PO DAILY #30 tablet. 06/30/17 Buspirone HCl [Buspar -] 5 mg PO DAILY #1 tablet MDD 5 07/12/17 Carvedilol [Coreg -] 3.125 mg PO DAILY@0700 #30 tablet 07/12/17 Spironolactone [Aldactone -] 25 mg PO DAILY #30 tablet 07/12/17 Furosemide [Lasix -] 60 mg PO BID #60 tablet 07/21/17 Ofloxacin Otic [Floxin Otic -] 5 drop AD BID #1 bottle 07/21/17 Carvedilol 6.25 mg PO HS 08/01/17 Meclizine HCl [Antivert -] 12.5 mg PO TID PRN 08/01/17 Review of Systems Findings/Remarks: ROS Significant for: Dizziness, worsening lower extremity edema, shortness if breath, taste changes Physical Examination Vital Signs: Vital Signs Temperature 97.5 F L 08/01/17 18:04 Pulse Rate 92 H 08/01/17 18:04 Respiratory Rate 20 08/01/17 18:04 Blood Pressure 136/71 08/01/17 18:04 O2 Sat by Pulse Oximetry (%) 99 08/01/17 18:04 Findings/Remarks: GENERAL: Awake, alert, in no acute distress. HEAD: Normal with no signs of trauma. NECK: supple LUNGS: fine bibasilar crackles improved from discharge HEART: Regular rate and rhythm, normal S1 and S2 without murmur, rub or gallop. no JVD ABDOMEN: Soft, nontender, not distended, normoactive bowel sounds, no guarding, no rebound LOWER EXTREMITIES: warm, No calf tenderness. 2+ pitting edema bilaterally up to knee. NEUROLOGICAL: Cranial nerves II-XII grossly intact. Normal speech. gait unchanged Imaging - Results Chest X-ray: Report Reviewed, Image Reviewed (no acute pathology) EKG: Image Reviewed Assessment/Plan 87M with multiple medical problems presents to the hospital with acute on chronic left sided systolic heart failure presents with intermittent shortness of breath. acute on chronic CHF left sided systolic exacerbation: unlikely to be in exacerbation at this time patient's lower extremities are much improved from time of discharge. possible patient is non compliant with medications patient recently has an NSTEMI where he had a left heart cath angiogram PCI with stent and ICD placement. given lasix in ED cardiology consult transfer to telemetry strict I/O daily weights spironolactone coreg 6.25 mg po HS 3.125 QAM counselled patient on medication compliance CAD: see above restart statin restart Plavix restart aspirin HTN: continue coreg 6.25mg continue spironolactone HLD: restart statin DM: HbA1C > 6.5 in the past. controlled with diet fingersticks q12h to monitor glucose values. does not require insulin at this time COPD: not in acute exacerbation at this time bronchodialtors PRN O2 PRN CKD: Creatinine at baseline will continue to trend and monitor BPH: not on meds urinating fine anxiety/insomnia: restart buspar Pulm HTN: FEN: no IVF no electrolyte issues sodium controlled diet PPx: HSQ no GI PPx indicated no PT consult needed patient is ambulating case discussed with Dr. Del Toro Transfer to telemetry Visit type - Emergency Visit Emergency Visit: Yes ED Registration Date: 08/01/17 Care time: The patient presented to the Emergency Department on the above date and was hospitalized for further evaluation of their emergent condition. - New Patient This patient is new to me today: Yes Date on this admission: 08/01/17 - Critical Care Critical Care patient: No
--- NOTE | 2017-08-01 21:51 | PN ---
Teaching Attending Note Name of Resident: Jessi Gotti ATTENDING PHYSICIAN STATEMENT I saw and evaluated the patient. I reviewed the resident's note and discussed the case with the resident. I agree with the resident's findings and plan as documented. SUBJECTIVE: 87 year old male presents c/o worsening SOB and LE edema Reports non compliance with diet History of non compliance with medication regimen and multiple hospitalizations with similar problems Denies Chest pain PMH is significant for CHF and Ischemic Cardiomyopathy with severely reduced EF Prior medical history reviewed OBJECTIVE: Vital Signs Temperature 97.5 F L 08/01/17 18:04 Pulse Rate 92 H 08/01/17 18:04 Respiratory Rate 20 08/01/17 18:04 Blood Pressure 136/71 08/01/17 18:04 O2 Sat by Pulse Oximetry (%) 99 08/01/17 18:04 LUNGS: Fine crackles to jose raul lower lungs ascultated. No wheezes. No accessory muscle use. HEART: 2/6 holosystolic murmur heard at Left sternal border. ABDOMEN: Soft, nontender, not distended, no guarding, no rebound, no masses. UPPER EXTREMITIES: Warm, well-perfused. No cyanosis. No clubbing. No peripheral edema. LOWER EXTREMITIES: Warm, well-perfused. No calf tenderness. 2+ pitting edema ojse raul to knees. CBC, BMP 08/01/17 12:13 08/01/17 12:13 CMP Sodium 136 mmol/L (136-145) 08/01/17 12:13 Potassium 4.7 mmol/L (3.5-5.1) D 08/01/17 12:13 Chloride 97 mmol/L (98-107) L 08/01/17 12:13 Carbon Dioxide 33 mmol/L (21-32) H 08/01/17 12:13 Anion Gap 6 (8-16) L 08/01/17 12:13 BUN 38 mg/dL (7-18) H 08/01/17 12:13 Creatinine 2.2 mg/dL (0.7-1.3) H 08/01/17 12:13 Creat Clearance w eGFR 28.45 (>60) 08/01/17 12:13 Random Glucose 126 mg/dL (74-106) H 08/01/17 12:13 Calcium 8.5 mg/dL (8.5-10.1) 08/01/17 12:13 Magnesium 2.6 mg/dL (1.8-2.4) H 08/01/17 12:13 Total Bilirubin 1.1 mg/dL (0.2-1.0) H D 08/01/17 12:13 AST 20 U/L (15-37) 08/01/17 12:13 ALT 17 U/L (12-78) 08/01/17 12:13 Alkaline Phosphatase 114 U/L (45-117) 08/01/17 12:13 Creatine Kinase 65 IU/L (39-308) 08/01/17 12:13 Troponin I 0.02 ng/ml (0.00-0.05) D 08/01/17 12:13 B-Natriuretic Peptide 08024.06 pg/ml (5-450) H 08/01/17 12:13 Total Protein 7.0 g/dl (6.4-8.2) 08/01/17 12:13 Albumin 3.4 g/dl (3.4-5.0) 08/01/17 12:13 Home Medication List Medication Instructions Recorded Confirmed Type Simvastatin 20 mg PO HS 06/10/17 08/01/17 History Potassium Chloride 20 meq PO DAILY 06/27/17 08/01/17 History Carvedilol 6.25 mg PO HS 08/01/17 08/01/17 History Meclizine HCl [Antivert -] 12.5 mg PO TID PRN 08/01/17 08/01/17 History Active Medications Generic Name Dose Route Start Last Admin Trade Name Freq PRN Reason Stop Dose Admin Aspirin 81 mg 08/02/17 10:00 Ecotrin - PO DAILY JEREMÍAS Buspirone HCl 5 mg 08/02/17 10:00 Buspar - PO DAILY JEREMÍAS Carvedilol 3.125 mg 08/02/17 07:00 Coreg - PO DAILY@0700 JEREMÍAS Carvedilol 6.25 mg 08/01/17 22:00 Coreg - PO HS [facility] Clopidogrel Bisulfate 75 mg 08/02/17 07:00 Plavix - PO AM JEREMÍAS Furosemide 80 mg 08/01/17 21:48 Lasix Injection - IVPUSH 08/01/17 21:49 ONCE ONE Furosemide 80 mg 08/02/17 06:00 Lasix Injection - IVPUSH BID@0600,1400 [facility] Heparin Sodium (Porcine) 5,000 unit 10/19/17 22:00 Heparin - SQ TID JEREMÍAS Meclizine HCl 12.5 mg 08/01/17 21:46 Antivert - PO TID PRN VERTIGO Non-Formulary Medication 20 mg 08/01/17 22:00 Simvastatin [Simvastatin] PO HS JEREMÍAS Spironolactone 25 mg 08/02/17 10:00 Aldactone - PO DAILY [facility] ASSESSMENT AND PLAN: 1. Acute Exacerbation of Chronic Congestive Heart Failure / Ischemic Cardiomyopathy- likely secondary to non compliance with fluid restriction and medication regimen at home. No hypoxia, no chest pain , no acute EKG changes. - telemetry - strict I&O - Lasix 80 IV BID - aldactone - cardiology evaluation - AICD interrogation 2. CAD - no complaints of chest pain , no acute EKG changes, troponins x 1 is negative. - c/w current meds - BP control 3. HTN - optimally controlled at this time 4. CKD - at baseline - monitor daily while on diuretics This is a 87 year old male that presented to the ED on 08/01/17 ( care initiated around 3pm ) with SOB and signs of fluid overload secondary to acute exacerbation of CHF. First midnight of hospitalization was crossed while in the ED . Based on severity of his cardiomyopathy, renal insufficiency , need for monitoring of renal function in the setting of IV lasix and plan of care that includes BID IV medications and continuous telemetry monitoring , expected length of hospitalization exceeds 2 midnights . AAdmit as an inpatient .
[2017-08-01] MEDS ORDERED: ATORVASTATIN CA 10 MG TABLET (FP) PO SCH (22:00)
--- NOTE | 2017-08-01 22:39 | HP ---
CHIEF COMPLAINT: sob PCP: Carmela HISTORY OF PRESENT ILLNESS: 87yo M with PMH of CHF, CAD s/p 2 stents and AICD placement 2 months ago and s/ p CABG 5 yrs ago, presents c/o sob. Pt reports upon waking up this morning he felt sob. Pt also reported anxiety. When pt's Visiting Nurse came, pt's jose raul lower extremity edema was pointed out to him, prompting him to come to the hospital. Pt reports increased thirst over the last couple days, and admits to drinking increased amounts of water, orange juice and Ensure. Pt is non- compliant with his medications. Pt is normally able to walk 50 feet without sob , but is unable to ambulate today. Pt's last adm to this hospital was 07/19/17, for similar symptoms. Pt denies fever, chills, chest pain, syncope, nausea, vomiting. ER course was notable for: (1) Lasix 80mg IVpush given (2) O2 sat 99% on room air (3) CXR -> no acute pathology, previous open heart surgery and AICD placement noted PAST MEDICAL HISTORY: chf cad s/p 2 stents placement and AICD placement in 05/2017; s/p CABG 5 yrs ago htn hld copd anxiety insomnia ckd dm - diet controlled PAST SURGICAL HISTORY: stents and AICD placement 05/2017 CABG 5 yrs ago Social History: Smoking: former, quit 35 yrs ago Alcohol: none Drugs: none Allergies amoxicillin trihydrate [From Augmentin] Adverse Reaction (Mild, Verified 11:27) gi upset potassium clavulanate [From Augmentin] Adverse Reaction (Mild, Verified 11:27) gi upset HOME MEDICATIONS: Home Medications Medication Instructions Recorded Simvastatin 20 mg PO HS 06/10/17 Bacitracin - [Bacitracin Topical 1 applic TP BID #1 tube 06/21/17 Ointment -] Clopidogrel Bisulfate [Plavix -] 75 mg PO AM #30 tab 06/21/17 Potassium Chloride 20 meq PO DAILY 06/27/17 Aspirin [Ecotrin] 81 mg PO DAILY #30 tablet. 06/30/17 Buspirone HCl [Buspar -] 5 mg PO DAILY #1 tablet MDD 5 07/12/17 Carvedilol [Coreg -] 3.125 mg PO DAILY@0700 #30 tablet 07/12/17 Spironolactone [Aldactone -] 25 mg PO DAILY #30 tablet 07/12/17 Furosemide [Lasix -] 60 mg PO BID #60 tablet 07/21/17 Ofloxacin Otic [Floxin Otic -] 5 drop AD BID #1 bottle 07/21/17 Carvedilol 6.25 mg PO HS 08/01/17 Meclizine HCl [Antivert -] 12.5 mg PO TID PRN 08/01/17 REVIEW OF SYSTEMS CONSTITUTIONAL: Present: loss of appetite, loss of taste Absent: fever, chills, diaphoresis HEENT: Absent: rhinorrhea, nasal congestion, throat pain, difficulty swallowing, changes in vision CARDIOVASCULAR: Absent: chest pain, syncope, palpitations, irregular heart rate RESPIRATORY: Present: sob, dyspnea on exertion, orthopnea Absent: cough, wheezing, stridor, hemoptysis GASTROINTESTINAL: Absent: abdominal pain, abdominal distension, nausea, vomiting, diarrhea, constipation, melena, hematochezia GENITOURINARY: Absent: dysuria, frequency, urgency, hesitancy, hematuria MUSCULOSKELETAL: Absent: myalgia, arthralgia SKIN: Absent: rash, itching, pallor ENDOCRINE: Present: increased thirst Absent: unexplained weight gain, unexplained weight loss NEUROLOGIC: Present: mild headache, dizziness Absent: focal weakness or paresthesias PSYCHIATRIC: Present: anxiety PHYSICAL EXAMINATION Vital Signs - 24 hr 08/01/17 08/01/17 08/01/17 11:27 13:20 14:32 Temperature 97.6 F Pulse Rate 86 Pulse Rate [ 87 84 Left Radial] Respiratory 19 22 22 Rate Blood Pressure 128/71 Blood Pressure 131/88 132/83 [Left Arm] O2 Sat by Pulse 99 98 98 Oximetry (%) 08/01/17 08/01/17 17:04 18:04 Temperature 97.5 F L Pulse Rate 92 H Pulse Rate [ 84 Left Radial] Respiratory 22 20 Rate Blood Pressure 136/71 Blood Pressure 134/85 [Left Arm] O2 Sat by Pulse 98 99 Oximetry (%) GENERAL: Awake, alert, and fully oriented, in no acute distress. HEAD: Normal with no signs of trauma. EYES: Pupils equal, round and reactive to light, extraocular movements intact, sclera anicteric, conjunctiva clear. No lid lag. EARS, NOSE, THROAT: Ears normal, jose raul hearing aides noted, nares patent, oropharynx clear without exudates. Moist mucous membranes. NECK: Supple. Trachea midline. No JVD. LUNGS: Fine crackles to jose raul lower lungs ascultated. No wheezes. No accessory muscle use. HEART: 2/6 holosystolic murmur heard at Left sternal border. ABDOMEN: Soft, nontender, not distended, no guarding, no rebound, no masses. UPPER EXTREMITIES: Warm, well-perfused. No cyanosis. No clubbing. No peripheral edema. LOWER EXTREMITIES: Warm, well-perfused. No calf tenderness. 2+ pitting edema jose raul to knees. NEUROLOGICAL: Cranial nerves II-XII grossly intact. Normal speech. PSYCHIATRIC: Cooperative. Good eye contact. Appropriate mood and affect. SKIN: Warm, dry, normal turgor, no rashes or lesions noted. Laboratory Last Values WBC 5.7 K/mm3 (4.0-10.0) 08/01/17 12:13 RBC 4.05 M/mm3 (4.00-5.60) 08/01/17 12:13 Hgb 11.1 GM/dL (11.7-16.9) L 08/01/17 12:13 Hct 34.9 % (35.4-49) L 08/01/17 12:13 MCV 86.2 fl (80-96) 08/01/17 12:13 MCH 27.5 pg (25.7-33.7) 08/01/17 12:13 MCHC 31.9 g/dl (32.0-35.9) L 08/01/17 12:13 RDW 17.4 % (11.9-15.9) H 08/01/17 12:13 Plt Count 146 K/MM3 (134-434) D 08/01/17 12:13 MPV 9.5 fl (7.5-11.1) D 08/01/17 12:13 Neutrophils % 64.2 % (42.8-82.8) 08/01/17 12:13 Lymphocytes % 19.9 % (8-40) D 08/01/17 12:13 Monocytes % 11.8 % (3.8-10.2) H 08/01/17 12:13 Eosinophils % 2.8 % (0-4.5) 08/01/17 12:13 Basophils % 1.3 % (0-2.0) 08/01/17 12:13 PT with INR 15.20 SEC (9.98-11.88) H 08/01/17 12:13 INR 1.35 (0.82-1.09) H 08/01/17 12:13 Sodium 136 mmol/L (136-145) 08/01/17 12:13 Potassium 4.7 mmol/L (3.5-5.1) D 08/01/17 12:13 Chloride 97 mmol/L (98-107) L 08/01/17 12:13 Carbon Dioxide 33 mmol/L (21-32) H 08/01/17 12:13 Anion Gap 6 (8-16) L 08/01/17 12:13 BUN 38 mg/dL (7-18) H 08/01/17 12:13 Creatinine 2.2 mg/dL (0.7-1.3) H 08/01/17 12:13 Creat Clearance w eGFR 28.45 (>60) 08/01/17 12:13 Random Glucose 126 mg/dL (74-106) H 08/01/17 12:13 Calcium 8.5 mg/dL (8.5-10.1) 08/01/17 12:13 Magnesium 2.6 mg/dL (1.8-2.4) H 08/01/17 12:13 Total Bilirubin 1.1 mg/dL (0.2-1.0) H D 08/01/17 12:13 AST 20 U/L (15-37) 08/01/17 12:13 ALT 17 U/L (12-78) 08/01/17 12:13 Alkaline Phosphatase 114 U/L (45-117) 08/01/17 12:13 Creatine Kinase 65 IU/L (39-308) 08/01/17 12:13 Troponin I 0.02 ng/ml (0.00-0.05) D 08/01/17 12:13 B-Natriuretic Peptide 18812.06 pg/ml (5-450) H 08/01/17 12:13 Total Protein 7.0 g/dl (6.4-8.2) 08/01/17 12:13 Albumin 3.4 g/dl (3.4-5.0) 08/01/17 12:13 IMAGIN08/01/17 EKG -> NSR with occasional PVCs, LBBB, Left axis deviation, possible Left atrial enlargement. Unchanged to from prior. 08/01/17 CXR -> no acute pathology, previous open heart surgery and AICD placement noted ASSESSMENT/PLAN: 87yo M with PMH of CHF, CAD s/p 2 stents and AICD placement in 05/2017 and s/p CABG 5 yrs ago, presents c/o sob, admitted to Telemetry Observation for CHF exacerbation. Pt originally hospitalized under Dr. Casey; care assumed for pt at 7pm. 1) acute exacerbation of chronic CHF vs ischemic cardiomyopathy - likely 2/2 non-compliance of medications and diet - cardiac monitoring - strict I&O's - daily wts - Lasix 80mg IVpush BID - continue home med of Aldactone 25mg po daily - Cardiac Consult -> Dr. Campuzano - last echo 05/2017 -> Left ventricular systolic function severely reduced - trop (-), chest pain (-) - continue home meds of Plavix 75mg po daily and ASA 81mg po daily - 2L O2 via nasal cannula for sob 2) CKD - BUN, Cr, Cr clearance at baseline; continue to monitor 3) htn - continue home med of Coreg 3.125mg po Am and 6.25mg po HS 4) hyperlipidemia - Atorvastatin 10mg po HS 5) dm -> diet controlled - diabetic, low sodium diet - fingersticks q12hr 6) anxiety - continue home med of Buspar 5mg po daily 7) dizziness - continue home med of Antivert 12.5mg po TID prn 8) loss of appetite - 2/2 changes in taste - accomodate food preferences - wt within usual body wt range 9) hypermagnesemia - at baseline, continue to monitor 10) hyperbilirubinemia - at baseline, continue to monitor 11) FEN - Fluids: po - Electrolytes: wnl, continue to monitor - Nutrition: diabetic, low sodium diet 12) DVT prophylaxis - Heparin 5,000U SQ q8hr - jose raul SCDs - early ambulation Visit type - Emergency Visit Emergency Visit: Yes ED Registration Date: 08/01/17 Care time: The patient presented to the Emergency Department on the above date and was hospitalized for further evaluation of their emergent condition. - New Patient This patient is new to me today: Yes Date on this admission: 08/01/17 - Critical Care Critical Care patient: No
[2017-08-01] MEDS: HEPARIN NA (PORCINE) 5,000 UNITS/ML 1ML VIAL SQ SCH (22:59)
[2017-08-01] MEDS: CARVEDILOL 6.25 MG TABLET (FP) PO SCH (22:59)
[2017-08-02] MEDS: HEPARIN NA (PORCINE) 5,000 UNITS/ML 1ML VIAL SQ SCH ×3 (06:36→21:53)
[2017-08-02] MEDS: FUROSEMIDE 40 MG/4 ML INJECTABLE VIAL IVPUSH SCH ×2 (06:36→14:24)
[2017-08-02] MEDS: CARVEDILOL 3.125 MG TABLET (FP) PO SCH (06:37)
[2017-08-02] MEDS: CLOPIDOGREL BISULFATE 75 MG TABLET (FP) PO SCH (06:37)
[2017-08-02 06:40] LABS: ANION GAP 10 (8-16); CALCIUM 8.4 mg/dL (8.5-10.1); CO2 31 mmol/L (21-32); GLUCOSE,RANDOM 98 mg/dL (74-106); MAGNESIUM 2.4 mg/dL (1.8-2.4)
[2017-08-02 06:41] LABS: PHOSPHOROUS 3.8 mg/dL (2.5-4.9)
[2017-08-02] MEDS: ASPIRIN COATED 81 MG TABLET.EC PO SCH (09:44)
[2017-08-02] MEDS: SPIRONOLACTONE 25 MG TABLET (FP) PO SCH (09:44)
--- NOTE | 2017-08-02 11:43 | CON.PULM ---
Consult Consult Specialty:: PULM/CCM Referred by:: TAISHA Reason for Consultation:: SOB - History of Present Illness Chief Complaint: SOB History of Present Illness: 87 M, COPD from prolonged smoking history (currently he does not smoke), HTN, HLD, CKD, BPH, recent NSTEMI last month, PSVT, CAD, CABG x 5 yrs ago. Sent by his [facility] service nurse due to shortness of breath and worsening lower extremity edema. No travel history or sick contacts. No fever or chills. No hemoptysis. Patient has had medication compliance issues in the past due to "taste". CXR : No acute process. - History Source History Provided By: Patient Limitations to Obtaining History: Poor Historian - Past Medical History TOE STAPLER: Yes: Vertigo Cardio/Vascular: Yes: CAD, CHF, HTN, Hyperlipdemia Pulmonary: Yes: COPD Renal/: Yes: Renal Inusuff ENT: Yes: Other (hearing loss (hearing aids) ) - Past Surgical History Past Surgical History: Yes: CABG - Alcohol/Substance Use Hx Alcohol Use: No - Smoking History Smoking history: Former smoker Have you smoked in the past 12 months: No Aproximately how many cigarettes per day: 0 If you are a former smoker, when did you quit?: 35 years ago Home Medications - Allergies Allergies/Adverse Reactions: Allergies Allergy/AdvReac Type Severity Reaction Status Date / Time amoxicillin trihydrate AdvReac Mild gi upset Verified 08/01/17 11:27 [From Augmentin] atorvastatin calcium AdvReac Mild gi upset Verified 08/01/17 11:27 [From Lipitor] potassium clavulanate AdvReac Mild gi upset Verified 08/01/17 11:27 [From Augmentin] - Home Medications Home Medications: Ambulatory Orders Simvastatin 20 mg PO HS 06/10/17 Bacitracin - [Bacitracin Topical Ointment -] 1 applic TP BID #1 tube 06/21/17 Clopidogrel Bisulfate [Plavix -] 75 mg PO AM #30 tab 06/21/17 Potassium Chloride 20 meq PO DAILY 06/27/17 Aspirin [Ecotrin] 81 mg PO DAILY #30 tablet. 06/30/17 Buspirone HCl [Buspar -] 5 mg PO DAILY #1 tablet MDD 5 07/12/17 Carvedilol [Coreg -] 3.125 mg PO DAILY@0700 #30 tablet 07/12/17 Spironolactone [Aldactone -] 25 mg PO DAILY #30 tablet 07/12/17 Furosemide [Lasix -] 60 mg PO BID #60 tablet 07/21/17 Ofloxacin Otic [Floxin Otic -] 5 drop AD BID #1 bottle 07/21/17 Carvedilol 6.25 mg PO HS 08/01/17 Meclizine HCl [Antivert -] 12.5 mg PO TID PRN 08/01/17 Review of Systems - Review of Systems Constitutional: reports: Malaise, Weakness. denies: Chills, Fever, Night Sweats Eyes: reports: No Symptoms HENT: reports: No Symptoms Neck: reports: No Symptoms Cardiovascular: reports: Edema, Shortness of Breath. denies: Chest Pain Respiratory: reports: Cough, SOB, SOB on Exertion. denies: Hemoptysis, Orthopnea, Snoring, Wheezing Gastrointestinal: reports: No Symptoms Genitourinary: reports: No Symptoms Breasts: reports: No Symptoms Reported Musculoskeletal: reports: No Symptoms Integumentary: reports: No Symptoms Neurological: reports: No Symptoms Endocrine: reports: No Symptoms Hematology/Lymphatic: reports: No Symptoms Psychiatric: reports: No Symptoms Physical Exam Vital Sings: Vital Signs Temperature 98.6 F 08/02/17 06:42 Pulse Rate 76 08/02/17 10:39 Respiratory Rate 18 08/02/17 09:00 Blood Pressure 103/51 08/02/17 09:00 O2 Sat by Pulse Oximetry (%) 98 08/02/17 10:39 Constitutional: Yes: No Distress Eyes: Yes: Conjunctiva Clear, EOM Intact HENT: Yes: Atraumatic, Normocephalic Neck: Yes: Supple, Trachea Midline Cardiovascular: Yes: Regular Rate and Rhythm Respiratory: Yes: Cough, Diminished, On Nasal O2, Rhonchi. No: Accessory Muscle Use, Rales, Stridor, Tachypnea, Wheezes ...Inspection: Yes: WNL ...Clubbing: No Gastrointestinal: Yes: Normal Bowel Sounds, Soft Renal/: Yes: WNL Musculoskeletal: Yes: WNL Extremities: Yes: WNL Edema: Yes Peripheral Pulses WNL: Yes Integumentary: Yes: WNL Neurological: Yes: WNL, Alert, Oriented ...Motor Strength: WNL Psychiatric: Yes: WNL, Alert, Oriented Labs: CBC, BMP 08/02/17 05:00 Imaging - Results Chest X-ray: Report Reviewed, Image Reviewed Problem List - Problems (1) Anxiety Code(s): F41.9 - ANXIETY DISORDER, UNSPECIFIED (2) COPD (chronic obstructive pulmonary disease) Code(s): J44.9 - CHRONIC OBSTRUCTIVE PULMONARY DISEASE, UNSPECIFIED (3) Compliance poor Code(s): Z91.19 - PATIENT'S NONCOMPLIANCE W OTH MEDICAL TREATMENT AND REGIMEN (4) Cough Code(s): R05 - COUGH (5) Hearing loss Code(s): H91.90 - UNSPECIFIED HEARING LOSS, UNSPECIFIED EAR Qualifiers: Hearing loss type: mixed conductive and sensorineural Laterality: bilateral Qualified Code(s): 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, bilateral; 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 , bilateral (6) CAD (coronary artery disease) Code(s): I25.10 - ATHSCL HEART DISEASE OF [place] CORONARY ARTERY W/O ANG PCTRS (7) Dyspnea on exertion Code(s): R06.09 - OTHER FORMS OF DYSPNEA (8) Hypertension Code(s): I10 - ESSENTIAL (PRIMARY) HYPERTENSION (9) Renal insufficiency Code(s): N28.9 - DISORDER OF KIDNEY AND URETER, UNSPECIFIED Assessment/Plan No need for systemic steroids at this time Symbicort BID : suspect chronic bronchitis symptoms as part of his baseline symptomatology O2 as needed Lasix No need for ABX PT Daily weight Will follow Thank you. Dr Julio
--- NOTE | 2017-08-02 11:58 | PN ---
Physical Exam: SUBJECTIVE: Patient seen and examined. Says he feels better this morning. His SOB has improved compared to yesterday. He denies dizziness, chest pain, and headache. OBJECTIVE: Vital Signs Period Temp Pulse Resp BP Sys/العلي Pulse Ox Last 24 Hr 98.0 F-98.6 F 74-82 16-24 103-139/51-73 98-100 GENERAL: The patient is awake, alert, and fully oriented, in no acute distress. HEAD: Normal with no signs of trauma. NECK: supple. LUNGS: crackles throughout HEART: + left JVD, Regular rate and rhythm ABDOMEN: Soft, nontender, nondistended, normoactive bowel sounds, no guarding, no rebound, no hepatosplenomegaly, no masses. EXTREMITIES: 2+ pulses, B/L LE 2+ edema PSYCH: Normal mood, normal affect. Laboratory Results - last 24 hr 08/02/17 05:00 Sodium 138 Potassium 3.5 D Chloride 97 L Carbon Dioxide 31 Anion Gap 10 BUN 39 H Creatinine 2.0 H Random Glucose 98 D Calcium 8.4 L Phosphorus 3.8 D Magnesium 2.4 Active Medications Generic Name Dose Route Start Last Admin Trade Name Freq PRN Reason Stop Dose Admin Acetaminophen 650 mg 08/01/17 22:28 Tylenol - PO Q6H PRN FEVER OR PAIN Aspirin 81 mg 08/02/17 10:00 08/02/17 09:44 Ecotrin - PO 81 mg DAILY JEREMÍAS Administration Buspirone HCl 5 mg 08/02/17 10:00 Buspar - PO DAILY JEREMÍAS Carvedilol 3.125 mg 08/02/17 07:00 08/02/17 06:37 Coreg - PO 3.125 mg DAILY@0700 JEREMÍAS Administration Carvedilol 6.25 mg 08/01/17 22:00 08/01/17 22:59 Coreg - PO 6.25 mg HS JEREMÍAS Administration Clopidogrel Bisulfate 75 mg 08/02/17 07:00 08/02/17 06:37 Plavix - PO 75 mg AM JEREMÍAS Administration Furosemide 80 mg 08/02/17 06:00 08/02/17 06:36 Lasix Injection - IVPUSH 80 mg BID@0600,1400 JEREMÍAS Administration Heparin Sodium (Porcine) 5,000 unit 08/01/17 22:00 08/02/17 06:36 Heparin - SQ 5,000 unit TID JEREMÍAS Administration Meclizine HCl 12.5 mg 08/01/17 21:46 Antivert - PO TID PRN VERTIGO Simvastatin 20 Mg 1 each 08/02/17 22:00 Tablet - Patient Own PO Med HS JEREMÍAS Spironolactone 25 mg 08/02/17 10:00 08/02/17 09:44 Aldactone - PO 25 mg DAILY JEREMÍAS Administration ASSESSMENT/PLAN: 87M with h/o CAD, S/p CABG, recent stenting, AICD placement , HTN, HLD , presents to the hospital with acute on chronic left sided systolic heart failure with SOB. #Acute on chronic CHF left sided systolic exacerbation: -strict ins and outs, daily weights -BUN/Creatinine at baseline -Continue IV Lasix 80 BID -Continue Coreg to 3.125 in am and 6.25 in evening -continue spironolactone -Dr. Campuzano consulted #Anxiety/Claustrophobia -continue Buspar 5mg Daily #CAD: -Simvastatin 20mg -Aspirin 81mg -Plavix 75mg #HTN: -Continue Coreg #CKD: Creatinine at baseline will continue to trend and monitor #FEN: Not on IV Fluids sodium controlled diet #PPx: Heparin SQ PT for deconditioning Visit type - Emergency Visit Emergency Visit: Yes ED Registration Date: 08/01/17 Care time: The patient presented to the Emergency Department on the above date and was hospitalized for further evaluation of their emergent condition. - New Patient This patient is new to me today: No - Critical Care Critical Care patient: No
[2017-08-02] MEDS: busPIRone HCL 5 MG TABLET PO SCH (12:05)
--- NOTE | 2017-08-02 16:00 | PN ---
Teaching Attending Note Name of Resident: Kelsy Red ATTENDING PHYSICIAN STATEMENT I saw and evaluated the patient. I reviewed the resident's note and discussed the case with the resident. I agree with the resident's findings and plan as documented. SUBJECTIVE: no fever or chills. SOB has slightly improved. LE edema . has appetite again. OBJECTIVE: NAD , AAOX3 . HEENT: NC, AT . MMM CV: RRR, no MRG. JVD b/l Lungs: CTAB Ext: 3+ pitting edema on both legs from knee down. DP 2+ ASSESSMENT AND PLAN: 87 y/o man with h/ o CAD, S/p CCABG, recent stenting, AICD placement , HTN, HL, and other medical problems who presented with worsening SOB and was found to have acute CHF exacerbation 1- Acute on chronic Systolic and diastolic CHF: due to non compliance with meds. - Cont IV lasix 80 BID - follow weight and I&O - cont spironolactone - cont coreg - if no adequate diuresis is achieved , will consider inotropes and/or Demadex 2- CKD: base line 4- HTN: coreg. 5-H/o CAD . cont ASA and plavix . cont BB 6- anxiety : cont Buspar Dispo : HLOC
[2017-08-02] MEDS: ACETAMINOPHEN 325 MG TABLET (FP) PO PRN (21:53)
[2017-08-02] MEDS: CARVEDILOL 6.25 MG TABLET (FP) PO SCH (21:53)
[2017-08-03 06:27] LABS: ANION GAP 9 (8-16); CALCIUM 7.8 mg/dL (8.5-10.1); CO2 33 mmol/L (21-32); CREATININE 1.9 mg/dL (0.7-1.3); GLUCOSE,RANDOM 104 mg/dL (74-106); MAGNESIUM 2.4 mg/dL (1.8-2.4); PHOSPHOROUS 3.6 mg/dL (2.5-4.9)
[2017-08-03] MEDS: FUROSEMIDE 40 MG/4 ML INJECTABLE VIAL IVPUSH SCH ×2 (07:30→14:17)
[2017-08-03] MEDS: HEPARIN NA (PORCINE) 5,000 UNITS/ML 1ML VIAL SQ SCH ×3 (07:30→21:01)
[2017-08-03] MEDS: CARVEDILOL 3.125 MG TABLET (FP) PO SCH (07:30)
[2017-08-03] MEDS: CLOPIDOGREL BISULFATE 75 MG TABLET (FP) PO SCH (07:30)
--- NOTE | 2017-08-03 07:40 | CONS ---
DATE OF CONSULTATION: 08/02/2017 REQUESTING PHYSICIAN: Anmol Casey MD CHIEF COMPLAINT: 1. Increasing pedal edema. 2. Shortness of breath. HISTORY: The patient is an 87-year-old gentleman with longstanding history of coronary artery disease, status post coronary artery bypass grafting, status post NSTEMI, status post PCI/stenting, severe left ventricular systolic dysfunction, status post AICD insertion for primary prophylaxis, history of hypertension, hypercholesterolemia, glucose intolerance, chronic vertigo, chronic kidney disease. The patient states that he noticed progressive pedal edema for several days associated with dyspnea on minimal exertion. No history of paroxysmal or nocturnal dyspnea or orthopnea. No history of chest pain or discomfort either addressed or with exertion. No history of palpitations, lightheadedness, dizziness, or syncope. No history of cough or expectoration. On questioning, the patient volunteers information that he drinks over a gallon of water and more than a quart of orange juice per day. The visiting nurse noticed that he had gained 10 pounds of weight and advised hospitalization. PAST HISTORY: As mentioned in the history of present illness. 1. History of chronic obstructive pulmonary disease/interstitial disease. 2. History of anxiety disorder. SURGICAL HISTORY: 1. Status post bilateral mastoidectomy. 2. Status post coronary artery bypass grafting. ALLERGIES: The patient has intolerance to AMOXICILLIN, AUGMENTIN, and LIPITOR. REVIEW OF SYSTEMS: HEENT: No history of headaches. No history of diplopia or blurred vision reported. No history of epistaxis. History of chronic tinnitus and vertigo, which is currently in remission. History of deafness. Cardiovascular: See history of present illness. Respiratory: See history of present illness. History of intermittent cough. Gastrointestinal: No history of nausea, vomiting, melena, or hematemesis. Neurological: No history of seizures, syncope, or focal weakness. Endocrine: History of glucose intolerance. Genitourinary: History of frequency especially nocturia. History of chronic kidney disease. MEDICATIONS: Current medications: 1. Simvastatin 20 mg p.o. daily nightly. 2. Acetaminophen 650 mg q.6 hours p.r.n. 3. Hepatitis 5000 units subcutaneous t.i.d. 4. Meclizine 12.5 mg t.i.d. p.r.n. 5. BuSpar 5 mg p.o. daily. 6. Carvedilol 3.25 mg p.o. nightly. 7. Furosemide 80 mg IV b.i.d. 8. Spironolactone 25 mg p.o. daily. 9. Ecotrin 81 mg p.o. daily. 10. Clopidogrel 75 mg p.o. daily. PHYSICAL EXAMINATION: General: An 87-year-old gentleman who is in no acute distress. Skin: No pallor, cyanosis, clubbing, or jaundice. Vital Signs: Weight is not available. Blood pressure 93/65 mmHg, pulse 74 beats per minute regular. The patient is afebrile. Respirations are 18 per minute. Neck: Supple. No jugular venous distention. Slightly pulsatile neck veins. Slightly positive for hepatojugular reflux. Carotids are 2+. Upstrokes are normal. No bruits are heard. Heart: PMI is in the 5th intercostal space. No heaves or thrills. Heart sounds are distant. Grade 1/6 ejection systolic murmur is heard at the 2nd right intercostal space. Decrescendo systolic murmur is heard in the lower left sternal border on held expiration. No diastolic murmur or gallops are heard. Lungs: Fine crepitations at the right base. Abdomen: Soft, nontender. No hepatosplenomegaly or palpable masses are felt. Extremities: No calf tenderness. Have 3+ bilateral pitting edema. Femoral pulses are 2+ dorsalis pedis. Posterior tibialis pulses are not palpable. ECG: Sinus rhythm with intraatrial conduction abnormality, left axis deviation, left bundle branch block. Occasional ventricular ectopic beats that are single and unifocal. Diffuse ST and T abnormalities. Compared to ECG of January 21, 2017, left bundle branch block was recorded. X-ray chest: No acute chest pathology. LABORATORY DATA: August 02, 2017: Sodium 138, potassium 3.5, chloride 97, CO2 is 31 mmol/L, BUN 39, creatinine 2 mg/dL. Random glucose 98 mg/dL on admission was 126, magnesium 2.6. BMP on admission was 27,246.06, WBC count 5700, hemoglobin 11.1 g/dL, platelet count 146,000. IMPRESSION: 1. Congestive heart failure [place] [facility] classification 3 precipitated by volume overload. 2. Severe left ventricular systolic dysfunction. 3. Coronary artery disease status post coronary artery bypass grafting. 4. Status post non-ST elevation myocardial infarction, status post percutaneous coronary intervention/stenting (drug-eluting stent), right coronary artery. 5. Status post implantable cardioverter-defibrillator for primary prophylaxis. 6. Chronic obstructive pulmonary disease. 7. Chronic kidney disease. 8. 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 9. Poor compliance. RECOMMENDATIONS: 1. Concur with current line of treatment. 2. If the patient continues to have ongoing edema, consider use of renal dose dopamine. 3. The patient has been strongly counseled to curtail his volume intake. 4. The patient will probably require oral potassium supplements under close observation. 5. Could consider increasing the dose of spironolactone to 25 mg b.i.d. PROGNOSIS: Guarded. Thank you for your referral. Yours Sincerely, RADHA ASIF M.D. [id number]
[2017-08-03] MEDS ORDERED: POTASSIUM CHLORIDE TABS 20 MEQ TABLET.ER (FP) PO ONE (08:15)
--- NOTE | 2017-08-03 08:20 | PN ---
Physical Exam: SUBJECTIVE: Patient seen and examined. No acute events overnight. Offers no new complaints. Says his breathing is not as good as yesterday but overall feels ok. Denies dizziness, chest pain, headache, abdominal pain and diarrhea. OBJECTIVE: Vital Signs Period Temp Pulse Resp BP Sys/العلي Pulse Ox Last 24 Hr 97.6 F-98.3 F 74-78 16-18 89-105/47-80 98-98 GENERAL: The patient is awake, alert, and fully oriented, in no acute distress. HEAD: Normal with no signs of trauma. NECK: supple. LUNGS: crackles throughout (improved) HEART: + left JVD, Regular rate and rhythm ABDOMEN: Soft, nontender, nondistended, normoactive bowel sounds, no guarding EXTREMITIES: B/L LE 2+ edema PSYCH: Normal mood, normal affect. Laboratory Results - last 24 hr 08/03/17 05:45 Sodium 136 Potassium 3.3 L Chloride 94 L Carbon Dioxide 33 H Anion Gap 9 BUN 38 H Creatinine 1.9 H Random Glucose 104 Calcium 7.8 L Phosphorus 3.6 Magnesium 2.4 Active Medications Generic Name Dose Route Start Last Admin Trade Name Freq PRN Reason Stop Dose Admin Acetaminophen 650 mg 08/01/17 22:28 08/02/17 21:53 Tylenol - PO 650 mg Q6H PRN Administration FEVER OR PAIN Aspirin 81 mg 08/02/17 10:00 08/02/17 09:44 Ecotrin - PO 81 mg DAILY [facility] Administration Buspirone HCl 5 mg 08/02/17 10:00 08/02/17 12:05 Buspar - PO 5 mg DAILY [facility] Administration Carvedilol 3.125 mg 08/02/17 07:00 08/03/17 07:30 Coreg - PO 3.125 mg DAILY@0700 [facility] Administration Carvedilol 6.25 mg 08/01/17 22:00 08/02/17 21:53 Coreg - PO 6.25 mg HS [facility] Administration Clopidogrel Bisulfate 75 mg 08/02/17 07:00 08/03/17 07:30 Plavix - PO 75 mg AM [facility] Administration Furosemide 80 mg 08/02/17 06:00 08/03/17 07:30 Lasix Injection - IVPUSH 80 mg BID@0600,1400 [facility] Administration Heparin Sodium (Porcine) 5,000 unit 08/01/17 22:00 08/03/17 07:30 Heparin - SQ 5,000 unit TID [facility] Administration Meclizine HCl 12.5 mg 08/01/17 21:46 Antivert - PO TID PRN VERTIGO Simvastatin 20 Mg 1 each 08/02/17 22:00 Tablet - Patient Own PO Med HS [facility] Spironolactone 25 mg 08/02/17 10:00 08/02/17 09:44 Aldactone - PO 25 mg DAILY [facility] Administration ASSESSMENT/PLAN: 87M with h/o CAD, S/p CABG, recent stenting, AICD placement , HTN, HLD , presents to the hospital with acute on chronic left sided systolic heart failure with SOB. #Acute on chronic CHF left sided systolic exacerbation: -strict ins and outs, daily weights (186.3 lbs today) -BUN/Creatinine at baseline -Continue IV Lasix 80 BID -Continue Coreg to 3.125 in am and 6.25 in evening -increased spironolactone to 25mg BID -FU Dr Sheikh Velez #Anxiety/Claustrophobia -continue Buspar 5mg Daily #CAD: -Simvastatin 20mg -Aspirin 81mg -Plavix 75mg #HTN: -Continue Coreg #CKD: Creatinine at baseline will continue to trend and monitor #FEN: Not on IV Fluids sodium controlled diet #PPx: Heparin SQ PT for deconditioning Visit type - Emergency Visit Emergency Visit: Yes ED Registration Date: 08/01/17 Care time: The patient presented to the Emergency Department on the above date and was hospitalized for further evaluation of their emergent condition. - New Patient This patient is new to me today: No - Critical Care Critical Care patient: No
[2017-08-03] MEDS: SPIRONOLACTONE 25 MG TABLET (FP) PO SCH ×2 (09:09→21:01)
[2017-08-03] MEDS: ASPIRIN COATED 81 MG TABLET.EC PO SCH (09:09)
[2017-08-03] MEDS: busPIRone HCL 5 MG TABLET PO SCH (09:09)
--- NOTE | 2017-08-03 11:42 | PN ---
Teaching Attending Note Name of Resident: Kelsy Red ATTENDING PHYSICIAN STATEMENT I saw and evaluated the patient. I reviewed the resident's note and discussed the case with the resident. I agree with the resident's findings and plan as documented. SUBJECTIVE: no fever or chills, breathing is better. LE edema is better . OBJECTIVE: NAD , AAOX3 . HEENT: NC, AT . MMM CV: RRR, no MRG. JVD b/l Lungs: CTAB Ext: 3+ pitting edema on both legs from knee down. DP 2+ ASSESSMENT AND PLAN: 87 y/o man with h/ o CAD, S/p CCABG, recent stenting, AICD placement , HTN, HL, and other medical problems who presented with worsening SOB and was found to have acute CHF exacerbation 1- Acute on chronic Systolic and diastolic CHF: breathing has improved. I&O - 900 cc - Cont IV lasix 80 BID - follow weight and I&O - increase spironolactone to 25 BID - cont coreg - if no adequate diuresis is achieved , will consider inotropes and/or Demadex - tele : one episode of probably SVT yesterday 2- CKD: base line 4- HTN: coreg. 5-H/o CAD . cont ASA and plavix . cont BB 6- Anxiety : cont Buspar Dispo : HLOC
--- NOTE | 2017-08-03 12:50 | PN ---
Progress Note (short form) - Note Progress Note: PULMONARY FOLLOW UP ATTENDING NOTE I HAVE RESUMED MEDICAL ATTENDING FOR MY LONG-TERM PATIENT EFFORTS OF HOSPITALIST SERVICE REVIEWED AND APPRECIATED OOB TO CHAIR APPEARS STABLE REMAINS WITH DUMONT AND 2+ LOWER EXT EDEMA PATIENT HAS HAD MULTIPLE ER VISITS/ AND HOSPITALIZATIONS OVER THE PAST 6 MONTHS MOSTLY DUE TO LACK OF OUTPATIENT SUPPORT SYSTEM AND NONCOMPLIANCE VSS ANICTERIC SCATTERED INSP CRACKLES S1S2 BS+ 2+ EDEMA B/L LOWER EXT EDEMA LABS/MEDS/CONSULTS/IMAGING REVIEWED CHF LVD CAD CABG NSTEMI PCI STENT ICD COPD CKD VERTIGO MASTID DISEASE POOR COMPLIANCE FAILURE TO THRIVE CONTINUE CURRENT TREATMENT ORDERED WILL NEED SNF REHAB POST DISCHARGE PATIENT IS AGREEABLE Venkata BRINK MD
[2017-08-03] MEDS: CARVEDILOL 6.25 MG TABLET (FP) PO SCH (21:01)
[2017-08-04] MEDS: HEPARIN NA (PORCINE) 5,000 UNITS/ML 1ML VIAL SQ SCH ×3 (06:00→21:15)
[2017-08-04] MEDS: CARVEDILOL 3.125 MG TABLET (FP) PO SCH (06:00)
[2017-08-04] MEDS: CLOPIDOGREL BISULFATE 75 MG TABLET (FP) PO SCH (06:00)
[2017-08-04] MEDS: FUROSEMIDE 40 MG/4 ML INJECTABLE VIAL IVPUSH SCH (06:16)
[2017-08-04] MEDS ORDERED: PT OWN MED DRAWER 7, Y5N ONE (09:20)
[2017-08-04] MEDS: ASPIRIN COATED 81 MG TABLET.EC PO SCH (09:24)
[2017-08-04] MEDS: busPIRone HCL 5 MG TABLET PO SCH (09:24)
[2017-08-04] MEDS: SPIRONOLACTONE 25 MG TABLET (FP) PO SCH (09:24)
--- NOTE | 2017-08-04 13:00 | PN ---
Progress Note (short form) - Note Progress Note: MEDICAL ATTENDING NOTE OOB TO CHAIR APPEARS STABLE REMAINS WITH DUMONT AND 2+ LOWER EXT EDEMA NOW COMPLAINING THAT THE MEDICATION IS MAKING HIM "SICK" PATIENT HAS HAD MULTIPLE ER VISITS/ AND HOSPITALIZATIONS OVER THE PAST 6 MONTHS MOSTLY DUE TO LACK OF OUTPATIENT SUPPORT SYSTEM AND NONCOMPLIANCE VSS ANICTERIC SCATTERED INSP CRACKLES S1S2 BS+ 2+ EDEMA B/L LOWER EXT EDEMA LABS/MEDS/CONSULTS/IMAGING REVIEWED CHF LVD CAD CABG NSTEMI PCI STENT ICD COPD CKD VERTIGO MASTID DISEASE POOR COMPLIANCE FAILURE TO THRIVE HAVE ADJUSTED CURRENT TREATMENT WILL NEED SNF REHAB POST DISCHARGE/PULMONARY REHAB PATIENT IS AGREEABLE Venkata BRINK MD
[2017-08-04] MEDS: SIMVASTATIN 20 MG PO SCH (19:47)
[2017-08-04] MEDS: CARVEDILOL 6.25 MG TABLET (FP) PO SCH (21:15)
[2017-08-05] MEDS: HEPARIN NA (PORCINE) 5,000 UNITS/ML 1ML VIAL SQ SCH (06:23)
[2017-08-05] MEDS: CLOPIDOGREL BISULFATE 75 MG TABLET (FP) PO SCH (06:24)
[2017-08-05] MEDS: CARVEDILOL 3.125 MG TABLET (FP) PO SCH (06:24)
--- NOTE | 2017-08-05 10:09 | PN ---
Progress Note (short form) - Note Progress Note: 87 year old male known case of severe LV systolic dysfunction, CAD, S/P CABG, S/ P NSTEMI, S/P AICD, CKD, COPD, hypertension. No chest pain or discomfort, mild exetional dyspnea, no PND or orthopnea. intermittent cough with clear expectoration. Active Medications Generic Name Dose Route Start Last Admin Trade Name Freq PRN Reason Stop Dose Admin Acetaminophen 650 mg 08/01/17 22:28 08/02/17 21:53 Tylenol - PO 650 mg Q6H PRN Administration FEVER OR PAIN Alprazolam 0.5 mg 08/04/17 20:39 Xanax - PO HS PRN Aspirin 81 mg 08/02/17 10:00 08/04/17 09:24 Ecotrin - PO 81 mg DAILY [facility] Administration Carvedilol 3.125 mg 08/02/17 07:00 08/05/17 06:24 Coreg - PO 3.125 mg DAILY@0700 [facility] Administration Carvedilol 6.25 mg 08/01/17 22:00 08/04/17 21:15 Coreg - PO 6.25 mg HS [facility] Administration Clopidogrel Bisulfate 75 mg 08/02/17 07:00 08/05/17 06:24 Plavix - PO 75 mg AM [facility] Administration Furosemide 80 mg 08/05/17 10:00 Lasix - PO DAILY [facility] Heparin Sodium (Porcine) 5,000 unit 08/01/17 22:00 08/05/17 06:23 Heparin - SQ Not Given TID [facility] Meclizine HCl 12.5 mg 08/01/17 21:46 08/04/17 09:24 Antivert - PO 12.5 mg TID PRN Administration VERTIGO Spironolactone 25 mg 08/05/17 10:00 Aldactone - PO DAILY [facility] Patient was in no distress, no pallor, cyanosis, clubbing or jaundice. Vital Signs - 8 hr 08/05/17 06:00 Temperature 98.1 F Pulse Rate 70 Respiratory 20 Rate Blood Pressure 130/74 NECK: Supple, no JVD, carotids 2+, no bruits heard. No thyromegaly. HEART: PMI in the5th space, no heaves or thrills. DUARTE I/ 2nd right ICS, no gallops. LUNGS: Decreased breath at the bases, No creps. or rhonchi. ABDOMEN: Soft, no organomegaly, oozing from injection site. EXTREMITIES: 2+ bilateral lower extremity pitting, no calf tenderness. CBC, BMP 08/01/17 12:13 08/03/17 05:45 A: 1. CHF NYHA classII. 2. CAD S/P CABG. 3. S/P NSTEMI, S/P PCI/stenting. 4. Severe LV systolic Dysfunction. 5. CDKD. 6. S/P AICD for primary prophylaxis. 7. Hypertension. 1. Consider cardiac rehab on an inpatient basis. 2. Continue current medications. 3. Stop S/Q heparin due to ongoing bleeding from the injection site. ( similar episode on the last admission).
[2017-08-05] MEDS: FUROSEMIDE 40 MG TABLET (FP) PO SCH (10:33)
[2017-08-05] MEDS: ASPIRIN COATED 81 MG TABLET.EC PO SCH (10:33)
[2017-08-05] MEDS: SPIRONOLACTONE 25 MG TABLET (FP) PO SCH (10:33)
--- NOTE | 2017-08-05 12:01 | PN ---
Progress Note, Physician History of Present Illness: pulmonary alert,less dyspneic,-cp - Current Medication List Current Medications: Active Medications Acetaminophen (Tylenol -) 650 mg PO Q6H PRN PRN Reason: FEVER OR PAIN Last Admin: 08/02/17 21:53 Dose: 650 mg Alprazolam (Xanax -) 0.5 mg PO HS PRN Aspirin (Ecotrin -) 81 mg PO DAILY [facility] Last Admin: 08/05/17 10:33 Dose: 81 mg Carvedilol (Coreg -) 3.125 mg PO DAILY@0700 [facility] Last Admin: 08/05/17 06:24 Dose: 3.125 mg Carvedilol (Coreg -) 6.25 mg PO HS [facility] Last Admin: 08/04/17 21:15 Dose: 6.25 mg Clopidogrel Bisulfate (Plavix -) 75 mg PO AM [facility] Last Admin: 08/05/17 06:24 Dose: 75 mg Furosemide (Lasix -) 80 mg PO DAILY [facility] Last Admin: 08/05/17 10:33 Dose: 80 mg Meclizine HCl (Antivert -) 12.5 mg PO TID PRN PRN Reason: VERTIGO Last Admin: 08/04/17 09:24 Dose: 12.5 mg Spironolactone (Aldactone -) 25 mg PO DAILY [facility] Last Admin: 08/05/17 10:33 Dose: 25 mg - Objective Vital Signs: Vital Signs Temperature 97.7 F 08/05/17 10:00 Pulse Rate 76 08/05/17 10:00 Respiratory Rate 19 08/05/17 10:00 Blood Pressure 110/60 08/05/17 10:00 O2 Sat by Pulse Oximetry (%) 97 08/04/17 21:00 Constitutional: Yes: Well Nourished, Calm Eyes: Yes: WNL HENT: Yes: WNL Neck: Yes: WNL Cardiovascular: Yes: Pulse Irregular, S1, S2 Respiratory: Yes: Rales (bibasilar crackles) Gastrointestinal: Yes: Normal Bowel Sounds, Soft Extremities: Yes: WNL Edema: Yes (r>l) Labs: CBC, BMP 08/03/17 05:45 INR, PTT INR 1.35 (0.82-1.09) H 08/01/17 12:13 Problem List - Problems (1) Acute exacerbation of CHF (congestive heart failure) Code(s): I50.9 - HEART FAILURE, UNSPECIFIED (2) Anxiety Code(s): F41.9 - ANXIETY DISORDER, UNSPECIFIED (3) COPD (chronic obstructive pulmonary disease) Code(s): J44.9 - CHRONIC OBSTRUCTIVE PULMONARY DISEASE, UNSPECIFIED (4) Compliance poor Code(s): Z91.19 - PATIENT'S NONCOMPLIANCE W OTH MEDICAL TREATMENT AND REGIMEN (5) SOB (shortness of breath) Code(s): R06.02 - SHORTNESS OF BREATH (6) CAD (coronary artery disease) Code(s): I25.10 - ATHSCL HEART DISEASE OF [place] CORONARY ARTERY W/O ANG PCTRS (7) CHF (congestive heart failure) Code(s): I50.9 - HEART FAILURE, UNSPECIFIED Qualifiers: Congestive heart failure type: unspecified congestive heart failure type Congestive heart failure chronicity: chronic Qualified Code(s): I50.9 - Heart failure, unspecified; I50.9 - Heart failure, unspecified; I50.9 - Heart failure, unspecified; I50.9 - Heart failure, unspecified (8) Chronic kidney disease (CKD) stage G3a/A2, moderately decreased glomerular filtration rate (GFR) between 45-59 mL/min/1.73 square meter and albuminuria creatinine ratio between 30-299 mg/g Code(s): N18.3 - CHRONIC KIDNEY DISEASE, STAGE 3 (MODERATE) (9) Weakness Code(s): R53.1 - WEAKNESS Assessment/Plan 1. CHF NYHA classII. 2. CAD S/P CABG. 3. S/P NSTEMI, S/P PCI/stenting. 4. Severe LV systolic Dysfunction. 5. CDKD. 6. S/P AICD for primary prophylaxis. 7. Hypertension. 1. Consider cardiac rehab on an inpatient basis. 2. Continue current medications. 3. d/c heparin DR ANGELA
[2017-08-05] MEDS: ACETAMINOPHEN 325 MG TABLET (FP) PO PRN (14:31)
[2017-08-05] MEDS ORDERED: MECLIZINE HCL 25 MG TABLET (FP) PO PRN (16:14)
[2017-08-05] MEDS: MECLIZINE HCL 25 MG TABLET (FP) PO SCH ×2 (17:07→21:02)
[2017-08-05] MEDS ORDERED: PT OWN MED DRAWER 7, Y5N ONE ×2 (20:48→21:18)
[2017-08-05] MEDS: ALPRAZolam 0.25 MG TABLET PO PRN (21:01)
[2017-08-05] MEDS: CARVEDILOL 6.25 MG TABLET (FP) PO SCH (21:01)
[2017-08-05] MEDS: OFLOXACIN 0.3% OTIC SOLUTION 5 ML BOTTLE AD SCH (21:02)
[2017-08-06] MEDS: CLOPIDOGREL BISULFATE 75 MG TABLET (FP) PO SCH (06:28)
[2017-08-06] MEDS: CARVEDILOL 3.125 MG TABLET (FP) PO SCH (06:28)
[2017-08-06] MEDS: OFLOXACIN 0.3% OTIC SOLUTION 5 ML BOTTLE AD SCH ×2 (09:55→22:44)
[2017-08-06] MEDS: FUROSEMIDE 40 MG TABLET (FP) PO SCH (09:57)
[2017-08-06] MEDS: SPIRONOLACTONE 25 MG TABLET (FP) PO SCH (09:57)
[2017-08-06] MEDS: ASPIRIN COATED 81 MG TABLET.EC PO SCH (09:57)
[2017-08-06] MEDS: MECLIZINE HCL 25 MG TABLET (FP) PO SCH ×2 (09:57→22:44)
--- NOTE | 2017-08-06 12:12 | PN ---
Progress Note, Physician History of Present Illness: pulmonary alert,oob-chair,-resp distress - Current Medication List Current Medications: Active Medications Acetaminophen (Tylenol -) 650 mg PO Q6H PRN PRN Reason: FEVER OR PAIN Last Admin: 08/05/17 14:31 Dose: 650 mg Alprazolam (Xanax -) 0.5 mg PO HS PRN Last Admin: 08/05/17 21:01 Dose: 0.5 mg Aspirin (Ecotrin -) 81 mg PO DAILY [facility] Last Admin: 08/06/17 09:57 Dose: 81 mg Carvedilol (Coreg -) 3.125 mg PO DAILY@0700 [facility] Last Admin: 08/06/17 06:28 Dose: 3.125 mg Carvedilol (Coreg -) 6.25 mg PO HS [facility] Last Admin: 08/05/17 21:01 Dose: 6.25 mg Clopidogrel Bisulfate (Plavix -) 75 mg PO AM [facility] Last Admin: 08/06/17 06:28 Dose: 75 mg Furosemide (Lasix -) 80 mg PO DAILY [facility] Last Admin: 08/06/17 09:57 Dose: 80 mg Meclizine HCl (Antivert -) 25 mg PO BID [facility] Last Admin: 08/06/17 09:57 Dose: 25 mg Ofloxacin (Floxin Otic (Ear) Solution -) 5 drop AD BID [facility] Last Admin: 08/06/17 09:55 Dose: 5 drop Spironolactone (Aldactone -) 25 mg PO DAILY [facility] Last Admin: 08/06/17 09:57 Dose: 25 mg - Objective Vital Signs: Vital Signs Temperature 97.5 F L 08/06/17 09:00 Pulse Rate 71 08/06/17 09:00 Respiratory Rate 19 08/06/17 09:00 Blood Pressure 94/51 08/06/17 09:00 O2 Sat by Pulse Oximetry (%) 94 L 08/06/17 09:00 Constitutional: Yes: Well Nourished, Calm Eyes: Yes: WNL HENT: Yes: WNL Neck: Yes: WNL Cardiovascular: Yes: Regular Rate and Rhythm, S1, S2 Respiratory: Yes: Rales (bibasilar rales) Gastrointestinal: Yes: Normal Bowel Sounds, Soft Extremities: Yes: WNL Edema: Yes Labs: CBC, BMP INR 1.35 (0.82-1.09) H 10/19/17 12:13 Problem List - Problems (1) Acute exacerbation of CHF (congestive heart failure) Code(s): I50.9 - HEART FAILURE, UNSPECIFIED (2) Anxiety Code(s): F41.9 - ANXIETY DISORDER, UNSPECIFIED (3) COPD (chronic obstructive pulmonary disease) Code(s): J44.9 - CHRONIC OBSTRUCTIVE PULMONARY DISEASE, UNSPECIFIED (4) Compliance poor Code(s): Z91.19 - PATIENT'S NONCOMPLIANCE W OTH MEDICAL TREATMENT AND REGIMEN (5) SOB (shortness of breath) Code(s): R06.02 - SHORTNESS OF BREATH (6) CAD (coronary artery disease) Code(s): I25.10 - ATHSCL HEART DISEASE OF [place] CORONARY ARTERY W/O ANG PCTRS (7) CHF (congestive heart failure) Code(s): I50.9 - HEART FAILURE, UNSPECIFIED Qualifiers: Congestive heart failure type: unspecified congestive heart failure type Congestive heart failure chronicity: chronic Qualified Code(s): I50.9 - Heart failure, unspecified; I50.9 - Heart failure, unspecified; I50.9 - Heart failure, unspecified; I50.9 - Heart failure, unspecified (8) Chronic kidney disease (CKD) stage G3a/A2, moderately decreased glomerular filtration rate (GFR) between 45-59 mL/min/1.73 square meter and albuminuria creatinine ratio between 30-299 mg/g Code(s): N18.3 - CHRONIC KIDNEY DISEASE, STAGE 3 (MODERATE) (9) Weakness Code(s): R53.1 - WEAKNESS Assessment/Plan 1. CHF NYHA classII. 2. CAD S/P CABG. 3. S/P NSTEMI, S/P PCI/stenting. 4. Severe LV systolic Dysfunction. 5. CDKD. 6. S/P AICD for primary prophylaxis. 7. Hypertension. 1. Consider cardiac rehab on an inpatient basis. 2. Continue current medications. 3. d/c heparin 4. bmp DR ANGELA
[2017-08-06] MEDS: ACETAMINOPHEN 325 MG TABLET (FP) PO PRN (13:12)
[2017-08-06 13:17] LABS: ANION GAP 9 (8-16); CALCIUM 8.1 mg/dL (8.5-10.1); CO2 32 mmol/L (21-32); GLUCOSE,RANDOM 103 mg/dL (74-106)
--- NOTE | 2017-08-06 18:19 | PN ---
Progress Note (short form) - Note Progress Note: ENT consultation pt admitted for acute medical management of multiple cardiopulmonary problems including CHF, COPD, cough, shortness of breathe, coronary artery disease and chronic kidney disease c/o dyspnea known bilateral hearing loss, using bilateral behind the ear hearing aids hx bilateral mastoidectomy surgery has some discomfort left ear, using eardrops. Exam: NAD hearing loss, bilateral behind the ear hearing aids right pinna normal left pinna - healing skin erosion helical root from hearing aid tubing, dry, sl scab, no infection canals clear Left mastoid cavity sl moist but no debris right mastoid cavity ++dry debris debrided with curette and alligator forceps no active infection Impression: chronic mastoiditis debrided right recommend eardrops left bid x 7 days may use on right if discomfort or drainage noted hearing loss continue hearing aid use daily advise pt see his bridal consultant to check and modify the tubing of left hearing aid because it appears to have caused skin erosion of pinna. follow-up in office after discharge Thank you for consultation, Aleksandr May MD FACS
[2017-08-06] MEDS ORDERED: PT OWN MED DRAWER 7, Y5N ONE (21:33)
[2017-08-06] MEDS: ALPRAZolam 0.25 MG TABLET PO PRN (22:42)
[2017-08-06] MEDS: CARVEDILOL 6.25 MG TABLET (FP) PO SCH (22:43)
[2017-08-07] MEDS: CARVEDILOL 3.125 MG TABLET (FP) PO SCH (06:31)
[2017-08-07] MEDS: CLOPIDOGREL BISULFATE 75 MG TABLET (FP) PO SCH ×2 (06:31→09:05)
[2017-08-07] MEDS ORDERED: PT OWN MED DRAWER 7, Y5N ONE ×2 (08:59→22:11)
[2017-08-07] MEDS: ASPIRIN COATED 81 MG TABLET.EC PO SCH (09:05)
[2017-08-07] MEDS: OFLOXACIN 0.3% OTIC SOLUTION 5 ML BOTTLE AD SCH ×2 (09:05→22:15)
[2017-08-07] MEDS: MECLIZINE HCL 25 MG TABLET (FP) PO SCH ×2 (09:06→22:15)
[2017-08-07] MEDS: SPIRONOLACTONE 25 MG TABLET (FP) PO SCH ×2 (09:06→17:03)
[2017-08-07] MEDS: FUROSEMIDE 40 MG TABLET (FP) PO SCH (09:08)
--- NOTE | 2017-08-07 10:11 | PN ---
Progress Note (short form) - Note Progress Note: 87 year old male known case of CAD, S/P CABG, S/P NSTEMI, S/P AICD, CKD, COPD, hypertension, severe LV systolic dysfunction. History of intermittent ongoing cough with scant expectoration. No chest pain or discomfort, mild exertional dyspnea, no PND or orthopnea. Intermittent mild dizziness. Home Medication List Medication Instructions Recorded Confirmed Type Simvastatin 20 mg PO HS 06/10/17 08/01/17 History Potassium Chloride 20 meq PO DAILY 06/27/17 08/01/17 History Carvedilol 6.25 mg PO HS 08/01/17 08/01/17 History Meclizine HCl [Antivert -] 12.5 mg PO TID PRN 08/01/17 08/01/17 History Active Medications Generic Name Dose Route Start Last Admin Trade Name Freq PRN Reason Stop Dose Admin Acetaminophen 650 mg 08/01/17 22:28 08/06/17 13:12 Tylenol - PO 650 mg Q6H PRN Administration FEVER OR PAIN Alprazolam 0.5 mg 08/04/17 20:39 08/06/17 22:42 Xanax - PO 0.5 mg HS PRN Administration Aspirin 81 mg 08/02/17 10:00 08/07/17 09:05 Ecotrin - PO 81 mg DAILY [facility] Administration Carvedilol 3.125 mg 08/02/17 07:00 08/07/17 06:31 Coreg - PO Not Given DAILY@0700 [facility] Carvedilol 6.25 mg 08/01/17 22:00 08/06/17 22:43 Coreg - PO 6.25 mg HS [facility] Administration Clopidogrel Bisulfate 75 mg 08/02/17 07:00 08/07/17 09:05 Plavix - PO 75 mg AM [facility] Administration Furosemide 80 mg 08/05/17 10:00 08/07/17 09:08 Lasix - PO 80 mg DAILY [facility] Administration Meclizine HCl 25 mg 08/05/17 16:30 08/07/17 09:06 Antivert - PO Not Given BID [facility] Ofloxacin 5 drop 08/05/17 22:00 08/07/17 09:05 Floxin Otic (Ear) Solution - AD Not Given BID [facility] Spironolactone 25 mg 08/05/17 10:00 08/07/17 09:06 Aldactone - PO Not Given DAILY [facility] 87 year old male was in no acute distress, no pallor, cyanosis, clubbing or jaundice. Vital Signs - 8 hr 08/07/17 06:00 Temperature 98.1 F Pulse Rate 74 Respiratory 21 Rate Blood Pressure 111/68 NECK: Supple, no JVD, carotids 2+, no bruits heard. No thyromegaly. HEART: PMI in the 5th space, no heaves or thrills. DUARTE I/ 2nd right ICS, no gallops. LUNGS: Decreased breath at the bases, bilateral crepitations, scattered expiratory wheezing. ABDOMEN: Soft, no organomegaly, oozing from injection site. EXTREMITIES: 2+ bilateral lower extremity pitting, no calf tenderness. CBC, BMP 08/01/17 12:13 08/06/17 12:40 Impression: 1. CAD S/P CABG. 2. S/P NSTEMI, S/P PCI/stenting. 3. CHF NYHA classII. 4. Severe LV systolic Dysfunction. 5. CDKD. 6. S/P AICD for primary prophylaxis. 7. Hypertension. 8. COPD/interstitial lung disease. Recommendations: 1. Consider transferring to Rehab center. 2. Continue current medications. 3. Check BP supine and standing. 4. Progressive ambulation. 5. Discharge when medically stable. Attestation: Documentation prepared by Joann Blake, acting as medical lead for Kelvin Campuzano MD.
--- NOTE | 2017-08-07 12:11 | PN ---
Progress Note, Physician History of Present Illness: pulmonary alert,oob-chair,weak,less dyspneic - Current Medication List Current Medications: Active Medications Acetaminophen (Tylenol -) 650 mg PO Q6H PRN PRN Reason: FEVER OR PAIN Last Admin: 08/06/17 13:12 Dose: 650 mg Alprazolam (Xanax -) 0.5 mg PO HS PRN Last Admin: 08/06/17 22:42 Dose: 0.5 mg Aspirin (Ecotrin -) 81 mg PO DAILY [facility] Last Admin: 08/07/17 09:05 Dose: 81 mg Carvedilol (Coreg -) 3.125 mg PO DAILY@0700 [facility] Last Admin: 08/07/17 06:31 Dose: Not Given Carvedilol (Coreg -) 6.25 mg PO HS [facility] Last Admin: 08/06/17 22:43 Dose: 6.25 mg Clopidogrel Bisulfate (Plavix -) 75 mg PO AM [facility] Last Admin: 08/07/17 09:05 Dose: 75 mg Furosemide (Lasix -) 80 mg PO DAILY [facility] Last Admin: 08/07/17 09:08 Dose: 80 mg Meclizine HCl (Antivert -) 25 mg PO BID [facility] Last Admin: 08/07/17 09:06 Dose: Not Given Ofloxacin (Floxin Otic (Ear) Solution -) 5 drop AD BID [facility] Last Admin: 08/07/17 09:05 Dose: Not Given Spironolactone (Aldactone -) 25 mg PO DAILY [facility] Last Admin: 08/07/17 09:06 Dose: Not Given - Objective Vital Signs: Vital Signs Temperature 97.6 F 08/07/17 10:00 Pulse Rate 77 08/07/17 10:00 Respiratory Rate 18 08/07/17 10:00 Blood Pressure 100/44 08/07/17 10:00 O2 Sat by Pulse Oximetry (%) 94 L 08/07/17 09:00 Constitutional: Yes: Well Nourished, Calm Eyes: Yes: WNL HENT: Yes: WNL Neck: Yes: WNL Cardiovascular: Yes: Regular Rate and Rhythm, S1, S2 Respiratory: Yes: Rales (jose raul rales) Gastrointestinal: Yes: Normal Bowel Sounds, Soft Extremities: Yes: WNL Edema: Yes Labs: CBC, BMP 08/06/17 12:40 INR, PTT INR 1.35 (0.82-1.09) H 08/01/17 12:13 Problem List - Problems (1) Acute exacerbation of CHF (congestive heart failure) Code(s): I50.9 - HEART FAILURE, UNSPECIFIED (2) Anxiety Code(s): F41.9 - ANXIETY DISORDER, UNSPECIFIED (3) COPD (chronic obstructive pulmonary disease) Code(s): J44.9 - CHRONIC OBSTRUCTIVE PULMONARY DISEASE, UNSPECIFIED (4) Compliance poor Code(s): Z91.19 - PATIENT'S NONCOMPLIANCE W OTH MEDICAL TREATMENT AND REGIMEN (5) SOB (shortness of breath) Code(s): R06.02 - SHORTNESS OF BREATH (6) CAD (coronary artery disease) Code(s): I25.10 - ATHSCL HEART DISEASE OF [place] CORONARY ARTERY W/O ANG PCTRS (7) CHF (congestive heart failure) Code(s): I50.9 - HEART FAILURE, UNSPECIFIED Qualifiers: Congestive heart failure type: unspecified congestive heart failure type Congestive heart failure chronicity: chronic Qualified Code(s): I50.9 - Heart failure, unspecified; I50.9 - Heart failure, unspecified; I50.9 - Heart failure, unspecified; I50.9 - Heart failure, unspecified (8) Chronic kidney disease (CKD) stage G3a/A2, moderately decreased glomerular filtration rate (GFR) between 45-59 mL/min/1.73 square meter and albuminuria creatinine ratio between 30-299 mg/g Code(s): N18.3 - CHRONIC KIDNEY DISEASE, STAGE 3 (MODERATE) (9) Weakness Code(s): R53.1 - WEAKNESS Assessment/Plan 1. CHF NYHA classII. 2. CAD S/P CABG. 3. S/P NSTEMI, S/P PCI/stenting. 4. Severe LV systolic Dysfunction. 5. CDKD. 6. S/P AICD for primary prophylaxis. 7. Hypertension. 1. inpatient rehab post discharge 2. Continue current medications. DR ANGELA
[2017-08-07] MEDS ORDERED: MAGNESIUM HYDROX 2400MG/30ML ORAL SUSPENSION 30 ML CUP PO ONE (14:15)
[2017-08-07] MEDS ORDERED: ALBUTEROL SO4 0.083% IH SOL 2.5 MG/3 ML VIAL.NEB. NEB PRN (17:06)
[2017-08-07] MEDS: CARVEDILOL 6.25 MG TABLET (FP) PO SCH (22:16)
[2017-08-07] MEDS: guaiFENesin/D-METHORPHAN HB 10 ML UNIT-DOSE CUPS PO PRN (22:16)
[2017-08-08] MEDS: CARVEDILOL 3.125 MG TABLET (FP) PO SCH (06:57)
[2017-08-08] MEDS: CLOPIDOGREL BISULFATE 75 MG TABLET (FP) PO SCH (06:57)
[2017-08-08] MEDS: guaiFENesin/D-METHORPHAN HB 10 ML UNIT-DOSE CUPS PO PRN ×2 (06:57→22:53)
[2017-08-08] MEDS: FUROSEMIDE 40 MG TABLET (FP) PO SCH (10:16)
[2017-08-08] MEDS: SPIRONOLACTONE 25 MG TABLET (FP) PO SCH (10:17)
[2017-08-08] MEDS: ASPIRIN COATED 81 MG TABLET.EC PO SCH (10:17)
[2017-08-08] MEDS: MECLIZINE HCL 25 MG TABLET (FP) PO SCH ×2 (10:17→22:53)
[2017-08-08] MEDS: OFLOXACIN 0.3% OTIC SOLUTION 5 ML BOTTLE AD SCH ×2 (10:25→22:53)
--- NOTE | 2017-08-08 12:20 | PN ---
Progress Note, Physician History of Present Illness: pulmonary alert,oob-chair,-cp,less sob - Current Medication List Current Medications: Active Medications Acetaminophen (Tylenol -) 650 mg PO Q6H PRN PRN Reason: FEVER OR PAIN Last Admin: 08/06/17 13:12 Dose: 650 mg Albuterol Sulfate (Ventolin 0.083% Nebulizer Soln -) 1 amp NEB TIDR PRN PRN Reason: SHORT OF BREATH/WHEEZING Last Admin: 08/07/17 17:30 Dose: 1 amp Alprazolam (Xanax -) 0.5 mg PO HS PRN Last Admin: 08/06/17 22:42 Dose: 0.5 mg Aspirin (Ecotrin -) 81 mg PO DAILY [facility] Last Admin: 08/08/17 10:17 Dose: 81 mg Carvedilol (Coreg -) 3.125 mg PO DAILY@0700 [facility] Last Admin: 08/08/17 06:57 Dose: 3.125 mg Carvedilol (Coreg -) 6.25 mg PO HS [facility] Last Admin: 08/07/17 22:16 Dose: 6.25 mg Clopidogrel Bisulfate (Plavix -) 75 mg PO AM [facility] Last Admin: 08/08/17 06:57 Dose: 75 mg Furosemide (Lasix -) 80 mg PO DAILY [facility] Last Admin: 08/08/17 10:16 Dose: 80 mg Guaifenesin (Robitussin Dm -) 10 ml PO TID PRN Last Admin: 08/08/17 06:57 Dose: 10 ml Meclizine HCl (Antivert -) 25 mg PO BID [facility] Last Admin: 08/08/17 10:17 Dose: 25 mg Ofloxacin (Floxin Otic (Ear) Solution -) 5 drop AD BID [facility] Last Admin: 08/07/17 22:15 Dose: Not Given Polyethylene Glycol (Miralax (For Daily Use) -) 17 gm PO DAILY [facility] Spironolactone (Aldactone -) 25 mg PO DAILY [facility] Last Admin: 08/08/17 10:17 Dose: 25 mg - Objective Vital Signs: Vital Signs Temperature 97.6 F 08/08/17 10:00 Pulse Rate 74 08/08/17 10:00 Respiratory Rate 20 08/08/17 10:00 Blood Pressure 100/57 08/08/17 10:00 O2 Sat by Pulse Oximetry (%) 99 08/07/17 21:00 Constitutional: Yes: Calm, Thin Eyes: Yes: WNL HENT: Yes: WNL Neck: Yes: WNL Cardiovascular: Yes: Pulse Irregular, S1, S2 Respiratory: Yes: Rales (bibasilar crackles) Gastrointestinal: Yes: Normal Bowel Sounds, Soft Extremities: Yes: WNL Edema: Yes Labs: CBC, BMP INR, PTT INR 1.35 (0.82-1.09) H 08/01/17 12:13 Problem List - Problems (1) Acute exacerbation of CHF (congestive heart failure) Code(s): I50.9 - HEART FAILURE, UNSPECIFIED (2) Anxiety Code(s): F41.9 - ANXIETY DISORDER, UNSPECIFIED (3) COPD (chronic obstructive pulmonary disease) Code(s): J44.9 - CHRONIC OBSTRUCTIVE PULMONARY DISEASE, UNSPECIFIED (4) Compliance poor Code(s): Z91.19 - PATIENT'S NONCOMPLIANCE W OTH MEDICAL TREATMENT AND REGIMEN (5) SOB (shortness of breath) Code(s): R06.02 - SHORTNESS OF BREATH (6) CAD (coronary artery disease) Code(s): I25.10 - ATHSCL HEART DISEASE OF [place] CORONARY ARTERY W/O ANG PCTRS (7) CHF (congestive heart failure) Code(s): I50.9 - HEART FAILURE, UNSPECIFIED Qualifiers: Congestive heart failure type: unspecified congestive heart failure type Congestive heart failure chronicity: chronic Qualified Code(s): I50.9 - Heart failure, unspecified; I50.9 - Heart failure, unspecified; I50.9 - Heart failure, unspecified; I50.9 - Heart failure, unspecified (8) Chronic kidney disease (CKD) stage G3a/A2, moderately decreased glomerular filtration rate (GFR) between 45-59 mL/min/1.73 square meter and albuminuria creatinine ratio between 30-299 mg/g Code(s): N18.3 - CHRONIC KIDNEY DISEASE, STAGE 3 (MODERATE) (9) Weakness Code(s): R53.1 - WEAKNESS Assessment/Plan 1. CHF NYHA classII. 2. CAD S/P CABG. 3. S/P NSTEMI, S/P PCI/stenting. 4. Severe LV systolic Dysfunction. 5. CDKD. 6. S/P AICD for primary prophylaxis. 7. Hypertension. 1. inpatient rehab post discharge 2. Continue current medications. DR ANGELA
[2017-08-08] MEDS: POLYETHYLENE GLYCOL 3350 119 GM BTL PO SCH (12:25)
--- NOTE | 2017-08-08 19:14 | PN ---
Progress Note (short form) - Note Progress Note: 87 year old male known case of CAD, S/P CABG, S/P NSTEMI, S/P AICD, CKD, COPD, hypertension, severe LV systolic dysfunction. Patient states he feels better, mild SOB on exertion, no chest discomfort, no vertigo reported. Active Medications Acetaminophen (Tylenol -) 650 mg PO Q6H PRN PRN Reason: FEVER OR PAIN Last Admin: 08/06/17 13:12 Dose: 650 mg Albuterol Sulfate (Ventolin 0.083% Nebulizer Soln -) 1 amp NEB TIDR PRN PRN Reason: SHORT OF BREATH/WHEEZING Last Admin: 08/07/17 17:30 Dose: 1 amp Alprazolam (Xanax -) 0.5 mg PO HS PRN Last Admin: 08/06/17 22:42 Dose: 0.5 mg Aspirin (Ecotrin -) 81 mg PO DAILY [facility] Last Admin: 08/08/17 10:17 Dose: 81 mg Carvedilol (Coreg -) 3.125 mg PO DAILY@0700 [facility] Last Admin: 08/08/17 06:57 Dose: 3.125 mg Carvedilol (Coreg -) 6.25 mg PO HS [facility] Last Admin: 08/07/17 22:16 Dose: 6.25 mg Clopidogrel Bisulfate (Plavix -) 75 mg PO AM [facility] Last Admin: 08/08/17 06:57 Dose: 75 mg Furosemide (Lasix -) 80 mg PO DAILY [facility] Last Admin: 08/08/17 10:16 Dose: 80 mg Guaifenesin (Robitussin Dm -) 10 ml PO TID PRN Last Admin: 08/08/17 06:57 Dose: 10 ml Meclizine HCl (Antivert -) 25 mg PO BID [facility] Last Admin: 08/08/17 10:17 Dose: 25 mg Ofloxacin (Floxin Otic (Ear) Solution -) 5 drop AD BID [facility] Last Admin: 08/08/17 10:25 Dose: Not Given Polyethylene Glycol (Miralax (For Daily Use) -) 17 gm PO DAILY [facility] Last Admin: 08/08/17 12:25 Dose: Not Given Spironolactone (Aldactone -) 25 mg PO DAILY [facility] Last Admin: 08/08/17 10:17 Dose: 25 mg 87 year old male was in no acute distress, no pallor, cyanosis, clubbing or jaundice. Vital Signs - 8 hr 08/08/17 14:00 Temperature 97.5 F L Pulse Rate 76 Respiratory 18 Rate Blood Pressure 102/67 NECK: Supple, no JVD, carotids 2+, no bruits heard. No thyromegaly. HEART: PMI in the 5th space, no heaves or thrills. DUARTE I/ 2nd right ICS, no gallops. LUNGS: Decreased breath at the bases, bilateral basilar crepitations.No wheezing heard. ABDOMEN: Soft, no organomegaly, oozing from injection site. EXTREMITIES: 2+ bilateral lower extremity pitting, no calf tenderness. LAB DATA: latest results are not available. Impression: 1. S/P NSTEMI, S/P PCI/stenting. 2. CHF NYHA classII. 3. CAD S/P CABG. 4. Severe LV systolic Dysfunction. 5. CDKD. 6. S/P AICD for primary prophylaxis. 7. Hypertension. 8. COPD/interstitial lung disease. Recommendations: 1. CBC and BMP. 2. Continue current medications. 3. Consider cardiac rehab. 4. Progressive ambulation. .
[2017-08-08] MEDS ORDERED: SODIUM PHOSPHATE/NA BIPHOS 133 ML ENEMA RC ONE (19:30)
[2017-08-08] MEDS: CARVEDILOL 6.25 MG TABLET (FP) PO SCH (22:53)
[2017-08-09] MEDS: CLOPIDOGREL BISULFATE 75 MG TABLET (FP) PO SCH (06:17)
[2017-08-09] MEDS: CARVEDILOL 3.125 MG TABLET (FP) PO SCH (06:17)
[2017-08-09] MEDS: MECLIZINE HCL 25 MG TABLET (FP) PO SCH ×2 (09:18→15:10)
[2017-08-09] MEDS: FUROSEMIDE 40 MG TABLET (FP) PO SCH (09:18)
[2017-08-09] MEDS: SPIRONOLACTONE 25 MG TABLET (FP) PO SCH (09:18)
[2017-08-09] MEDS: OFLOXACIN 0.3% OTIC SOLUTION 5 ML BOTTLE AD SCH (09:18)
[2017-08-09] MEDS: ASPIRIN COATED 81 MG TABLET.EC PO SCH (09:18)
[2017-08-09] MEDS: POLYETHYLENE GLYCOL 3350 119 GM BTL PO SCH (09:19)
--- NOTE | 2017-08-09 10:29 | PN ---
Progress Note (short form) - Note Progress Note: 87 year old male known case of CAD, S/P CABG, S/P NSTEMI, S/P AICD, CKD, COPD, hypertension, severe LV systolic dysfunction. No SOB, chest pain or discomfort, no lightheadedness or dizziness reported. Out of bed in wheelchair. Active Medications Acetaminophen (Tylenol -) 650 mg PO Q6H PRN PRN Reason: FEVER OR PAIN Last Admin: 08/06/17 13:12 Dose: 650 mg Albuterol Sulfate (Ventolin 0.083% Nebulizer Soln -) 1 amp NEB TIDR PRN PRN Reason: SHORT OF BREATH/WHEEZING Last Admin: 08/07/17 17:30 Dose: 1 amp Alprazolam (Xanax -) 0.5 mg PO HS PRN Last Admin: 08/06/17 22:42 Dose: 0.5 mg Aspirin (Ecotrin -) 81 mg PO DAILY [facility] Last Admin: 08/08/17 10:17 Dose: 81 mg Carvedilol (Coreg -) 3.125 mg PO DAILY@0700 [facility] Last Admin: 08/08/17 06:57 Dose: 3.125 mg Carvedilol (Coreg -) 6.25 mg PO HS [facility] Last Admin: 08/07/17 22:16 Dose: 6.25 mg Clopidogrel Bisulfate (Plavix -) 75 mg PO AM [facility] Last Admin: 08/08/17 06:57 Dose: 75 mg Furosemide (Lasix -) 80 mg PO DAILY [facility] Last Admin: 08/08/17 10:16 Dose: 80 mg Guaifenesin (Robitussin Dm -) 10 ml PO TID PRN Last Admin: 08/08/17 06:57 Dose: 10 ml Meclizine HCl (Antivert -) 25 mg PO BID [facility] Last Admin: 08/08/17 10:17 Dose: 25 mg Ofloxacin (Floxin Otic (Ear) Solution -) 5 drop AD BID [facility] Last Admin: 08/08/17 10:25 Dose: Not Given Polyethylene Glycol (Miralax (For Daily Use) -) 17 gm PO DAILY [facility] Last Admin: 08/08/17 12:25 Dose: Not Given Spironolactone (Aldactone -) 25 mg PO DAILY [facility] Last Admin: 08/08/17 10:17 Dose: 25 mg 87 year old male was in no acute distress, no pallor, cyanosis, clubbing or jaundice. Vital Signs - 8 hr 08/08/17 14:00 Temperature 97.5 F L Pulse Rate 76 Respiratory 18 Rate Blood Pressure 102/67 NECK: Supple, no JVD, carotids 2+, no bruits heard. No thyromegaly. HEART: PMI in the 5th space, no heaves or thrills. DUARTE I/ 2nd right ICS, no gallops. LUNGS: Decreased breath at the bases, bilateral basilar crepitations.No wheezing heard. ABDOMEN: Soft, no organomegaly, oozing from injection site. EXTREMITIES: 2+ bilateral lower extremity pitting, no calf tenderness. LAB DATA: latest results are not available. Impression: 1. S/P NSTEMI, S/P PCI/stenting. 2. CHF NYHA classII. 3. CAD S/P CABG. 4. Severe LV systolic Dysfunction. 5. CDKD. 6. S/P AICD for primary prophylaxis. 7. Hypertension. 8. COPD/interstitial lung disease. Recommendations: 1. CBC and BMP. 2. Continue current medications. 3. Consider cardiac rehab. 4. Progressive ambulation. .
--- NOTE | 2017-08-09 13:16 | DS ---
Physical Examination Vital Signs: Vital Signs Temperature 97.6 F 08/09/17 10:00 Pulse Rate 83 08/09/17 10:00 Respiratory Rate 20 08/09/17 10:00 Blood Pressure 121/45 08/09/17 10:00 O2 Sat by Pulse Oximetry (%) 96 08/09/17 09:00 Constitutional: Yes: Calm Eyes: Yes: EOM Intact HENT: Yes: Normocephalic Neck: Yes: Trachea Midline Cardiovascular: Yes: Regular Rate and Rhythm Respiratory: Yes: CTA Bilaterally Gastrointestinal: Yes: Normal Bowel Sounds ...Rectal Exam: Yes: Deferred Renal/: Yes: WNL Breast(s): Yes: WNL Musculoskeletal: Yes: WNL Edema: No Neurological: Yes: Alert (patient to undergo rehab at [facility]) Labs: CBC, BMP 08/06/17 12:40 Discharge Summary Reason For Visit: CONGESTIVE HEART FAILURE; HYPERVOLEMIA Current Active Problems Acute exacerbation of CHF (congestive heart failure) (Acute) Anxiety (Acute) COPD (chronic obstructive pulmonary disease) (Acute) Compliance poor (Acute) Cough (Acute) Dizziness (Acute) Fluid excess (Acute) Hearing loss (Acute) Orthopnea (Acute) SOB (shortness of breath) (Acute) CAD (coronary artery disease) (Chronic) CHF (congestive heart failure) (Chronic) Chronic kidney disease (CKD) stage G3a/A2, moderately decreased glomerular filtration rate (GFR) between 45-59 mL/min/1.73 square meter and albuminuria creatinine ratio between 30-299 mg/g (Chronic) - Home Medications Comprehensive Discharge Medication List: Ambulatory Orders Simvastatin 20 mg PO HS 06/10/17 Bacitracin - [Bacitracin Topical Ointment -] 1 applic TP BID #1 tube 06/21/17 Clopidogrel Bisulfate [Plavix -] 75 mg PO AM #30 tab 06/21/17 Potassium Chloride 20 meq PO DAILY 06/27/17 Aspirin [Ecotrin] 81 mg PO DAILY #30 tablet. 06/30/17 Buspirone HCl [Buspar -] 5 mg PO DAILY #1 tablet MDD 5 07/12/17 Spironolactone [Aldactone -] 25 mg PO DAILY #30 tablet 07/12/17 Furosemide [Lasix -] 60 mg PO BID #60 tablet 07/21/17 Ofloxacin Otic [Floxin Otic -] 5 drop AD BID #1 bottle 10/08/17 Carvedilol 6.25 mg PO HS 08/01/17 Meclizine HCl [Antivert -] 12.5 mg PO TID PRN 08/01/17 Acetaminophen [Tylenol .Regular Strength -] 650 mg PO Q6H PRN #0 tablet Albuterol 0.083% Nebulizer Lena [Ventolin 0.083% Nebulizer Soln -] 1 amp NEB TIDR PRN #0 amp 08/09/17 Alprazolam [Xanax] 0.5 mg PO HS PRN #30 tablet MDD 1 08/09/17 Carvedilol [Coreg -] 3.125 mg PO DAILY@0700 #30 tablet 08/09/17 Clopidogrel Bisulfate [Plavix -] 75 mg PO AM tablet 08/09/17 Furosemide [Lasix -] 80 mg PO DAILY tablet 08/09/17 Meclizine HCl [Antivert -] 25 mg PO BID tablet 08/09/17 Polyethylene Glycol 3350 [Miralax 119 gm Btl -] 17 gm PO DAILY bottle 08/09/17 Spironolactone [Aldactone -] 25 mg PO DAILY tablet 08/09/17
[2017-08-09 15:11] VITALS: BP 112/59; PULSE 82; TEMP 97.8
== END 2017-08-09 17:00 | DRG 291 ==
LOC: JER 11:18 → JERBED 14:55 → J5S 18:34 → OBSVTOIN 18:51 → J2W 08-02 00:27 → J4S 08-03 11:08
PROVIDERS: ADMIT Specialist; ATTEND Specialist
DX: I13.0 Hypertensive heart and chronic kidney disease with heart failure and stage 1 through stage 4 chronic kidney disease, or unspecified chronic kidney disease (principal); I50.23 Acute on chronic systolic (congestive) heart failure; E11.22 Type 2 diabetes mellitus with diabetic chronic kidney disease; N18.3 Chronic kidney disease, stage 3 (moderate); E78.5 Hyperlipidemia, unspecified; F41.9 Anxiety disorder, unspecified; R42 Dizziness and giddiness; J44.9 Chronic obstructive pulmonary disease, unspecified; I25.10 Atherosclerotic heart disease of native coronary artery without angina pectoris; Z95.1 Presence of aortocoronary bypass graft; H70.13 Chronic mastoiditis, bilateral; Z98.61 Coronary angioplasty status; R62.7 Adult failure to thrive; I25.5 Ischemic cardiomyopathy
CPT/HCPCS: 36415; 71010-TC; 80048; 80053; 82550; 83735; 83880; 84100; 84484; 85025; 85610; 93005; 93010; 94640; 97116-GP; 99285-25; G0378; J1644

== ENCOUNTER 2017-10-11 14:31 | Inpatient (IN) | payer OTHER ==
--- NOTE | 2017-10-11 16:31 | PDOC ---
History of Present Illness - General Chief Complaint: Shortness of Breath Stated Complaint: R/O DVT,SOB Time Seen by Provider: 10/11/17 15:55 History Source: Patient Exam Limitations: No Limitations - History of Present Illness Initial Comments: 10/11/17 16:49 The patient is an 87M with a PMH of HTN, HLD, CAD s/p CABG (5 years ago), NSTEMI s/p 2x stent and AICD placement (05/30) who presents to the ED with complaints of increased LE swelling. The patient states that he was recently admitted for the same complaint 2 months ago, was admitted, then went to [facility] for rehab. He went home today and was being evaluated for a visiting nurse , when the nurse noticed that he was edematous up to his stomach. His PCP, Dr. Casey was called and he recommended to come to the ER for further evaluation. He denies any symptoms of CP, SOB, fever, chills, nausea, vomiting, rashes, dysuria. Past History - Past Medical History Allergies/Adverse Reactions: Allergies Allergy/AdvReac Type Severity Reaction Status Date / Time amoxicillin trihydrate AdvReac Mild gi upset Verified 10/11/17 15:22 [From Augmentin] atorvastatin calcium AdvReac Mild gi upset Verified 10/11/17 15:22 [From Lipitor] potassium clavulanate AdvReac Mild gi upset Verified 10/11/17 15:22 [From Augmentin] Home Medications: Ambulatory Orders Simvastatin 20 mg PO HS 06/10/17 Clopidogrel Bisulfate [Plavix -] 75 mg PO AM #30 tab 06/21/17 Potassium Chloride 20 meq PO DAILY 06/27/17 Aspirin [Ecotrin] 81 mg PO DAILY #30 tablet. 06/30/17 Furosemide [Lasix -] 60 mg PO BID #60 tablet 07/21/17 Ofloxacin Otic [Floxin Otic -] 5 drop AD BID #1 bottle 07/21/17 Carvedilol 6.25 mg PO HS 08/01/17 Meclizine HCl [Antivert -] 12.5 mg PO TID PRN 08/01/17 Acetaminophen [Tylenol .Regular Strength -] 650 mg PO Q6H PRN #0 tablet Albuterol 0.083% Nebulizer Lena [Ventolin 0.083% Nebulizer Soln -] 1 amp NEB TIDR PRN #0 amp 08/09/17 Alprazolam [Xanax] 0.5 mg PO HS PRN #30 tablet MDD 1 08/09/17 Carvedilol [Coreg -] 3.125 mg PO DAILY@0700 #30 tablet 08/09/17 Meclizine HCl [Antivert -] 25 mg PO BID tablet 08/09/17 Polyethylene Glycol 3350 [Miralax 119 gm Btl -] 17 gm PO DAILY bottle 08/09/17 Spironolactone [Aldactone -] 25 mg PO DAILY tablet 08/09/17 Melatonin 3 mg PO DAILY 09/23/17 Anemia: No Asthma: No Cancer: No Cardiac Disorders: Yes (CABG (5 years ago), CAD, [place] w/ stent) CVA: No COPD: Yes CHF: Yes Dementia: No Diabetes: No GI Disorders: No HTN: Yes Hypercholesterolemia: Yes Liver Disease: No Psychiatric Problems: Yes (anxiety, insomnia) Seizures: No Thyroid Disease: No - Surgical History Abdominal Surgery: No Appendectomy: No Cardiac Surgery: Yes (OPEN HEART SX, cardiac stent 05/30, AICD 05/30) Cholecystectomy: No Lung Surgery: No Neurologic Surgery: Yes Orthopedic Surgery: No - Immunization History Immunization Up to Date: Yes - Suicide/Smoking/Psychosocial Hx Smoking Status: No Smoking History: Never smoked Have you smoked in the past 12 months: No Number of Cigarettes Smoked Daily: 0 If you are a former smoker, when did you quit?: 35 years ago Cigars Per Day: 0 Information on smoking cessation initiated: No Hx Alcohol Use: No Drug/Substance Use Hx: No Substance Use Type: None Hx Substance Use Treatment: No Review of Systems - Review of Systems Able to Perform ROS?: Yes Comments:: 10/11/17 17:49 GENERAL/CONSTITUTIONAL: No fever or chills. No weakness. HEAD, EYES, EARS, NOSE AND THROAT: No change in vision. No ear pain or discharge. No sore throat. GASTROINTESTINAL: No nausea, vomiting, diarrhea, constipation, or abdominal pain. GENITOURINARY: No dysuria, frequency, hematuria, or change in urination. CARDIOVASCULAR: No chest pain, palpitations, or lightheadedness. RESPIRATORY: No cough, wheezing, shortness of breath, or hemoptysis. MUSCULOSKELETAL: No joint or muscle swelling or pain. No neck or back pain. SKIN: Positive for edema in stomach and LE b/l. No rash or lesions. NEUROLOGIC: No headache, numbness, tingling, weakness, loss of consciousness, or change in strength/sensation. ENDOCRINE: No increased thirst. No abnormal weight change. HEMATOLOGIC/LYMPHATIC: No anemia, easy bleeding, or history of blood clots. ALLERGIC/IMMUNOLOGIC: No hives or skin allergy. Is the patient limited Japanese proficient: No *Physical Exam - Vital Signs Last Vital Signs Temp Pulse Resp BP Pulse Ox 97.8 F 83 18 195/90 100 10/11/17 14:31 10/11/17 14:31 10/11/17 14:31 10/11/17 14:31 10/11/17 14:31 - Physical Exam Comments: 10/11/17 17:50 GENERAL: Well developed, well nourished. Awake and alert. No acute distress. HEENT: Normocephalic, atraumatic. Hearing grossly normal. Moist mucous membranes. PERRLA, EOMI. NECK: Supple. Full ROM. No JVD. CARDIOVASCULAR: Regular rate and rhythm. No murmurs, rubs, or gallops. Distal pulses are 2+ and symmetric. PULMONARY: Positive for b/l crackles in all lung desir. No evidence of respiratory distress. ABDOMINAL: Soft. Non-tender. Non-distended. No rebound or guarding. No organomegaly. Normoactive bowel sounds. GENITOURINARY: No CVA tenderness bilaterally. MUSCULOSKELETAL: Normal range of motion at all joints. No bony deformities or tenderness. EXTREMITIES: 3+ pitting edema in b/l LE. 2+ pitting edema in abdomen. No cyanosis. No clubbing. No calf tenderness. SKIN: Warm and dry. Normal capillary refill. No rashes. No jaundice. NEUROLOGICAL: Alert, awake, appropriate. Cranial nerves 2-12 intact. Normal speech. Gait is normal without ataxia. PSYCHIATRIC: Cooperative. Good eye contact. Appropriate mood and affect. ED Treatment Course - LABORATORY CBC & Chemistry Diagram: 10/17/17 07:05 10/17/17 07:05 Medical Decision Making - Medical Decision Making 10/11/17 17:52 The patient is an 87M with an extensive cardiac medical history who presents to the ED with complaints of edema, recommended to be evaluated in the ED by Dr. Casey. The patient is 2+ edematous up to his abdomen. I am concerned for worsening cardiac status and/or ACS. I have ordered labs/imaging. I will administer 60 IV lasix. Will monitor closely. 10/11/17 18:55 Pt signed out to Dr. Juarez, night team. *DC/Admit/Observation/Transfer Diagnosis at time of Disposition: CHF (congestive heart failure) Qualifiers: Congestive heart failure type: unspecified congestive heart failure type Congestive heart failure chronicity: chronic Qualified Code(s): I50.9 - Heart failure, unspecified - Discharge Dispostion Condition at time of disposition: Stable - Referrals - Patient Instructions - Post Discharge Activity
[2017-10-11] MEDS ORDERED: FUROSEMIDE 40 MG/4 ML INJECTABLE VIAL IVPUSH ONE (17:11)
--- NOTE | 2017-10-11 17:11 | PDOC ---
Attending Attestation - Resident Resident Name: Roosevelt Patel - ED Attending Attestation I have performed the following: I have examined & evaluated the patient, The case was reviewed & discussed with the resident, I agree w/resident's findings & plan, Exceptions are as noted - HPI HPI: 10/11/17 Swelling, just home one day from rehab facility - Physicial Exam PE: 10/11/17 17:10 Pitting Edema and Rales - Medical Decision Making 10/11/17 17:[address] Patel's Assessment and Plan
[2017-10-11 17:36] LABS: BASO % 1.1 % (0-2.0); EOS % 6.8 % (0-4.5); HEMATOCRIT 32.7 % (35.4-49); HEMOGLOBIN 10.6 GM/dL (11.7-16.9); MCH 25.9 pg (25.7-33.7); MCHC 32.4 g/dl (32.0-35.9); MEAN CELL VOLUME 79.7 fl (80-96); MEAN PLT VOLUME 9.9 fl (7.5-11.1); NEUT % 64.1 % (42.8-82.8); PLATELET COUNT 86 K/MM3 (134-434); RDW 23.5 % (11.9-15.9); WHITE BLOOD COUNT 5.3 K/mm3 (4.0-10.0)
[2017-10-11 17:40] LABS: ADD RBC MORPHOLOGY YES
[2017-10-11] MEDS ORDERED: FUROSEMIDE 40 MG/4 ML INJECTABLE VIAL ONE (17:42)
[2017-10-11 17:49] LABS: INR 1.48 (0.82-1.09); PROTHROMBIN TIME (PATIENT) 16.7 SEC (9.98-11.88)
[2017-10-11 17:52] LABS: ACTIVATED PTT 28.4 SECONDS (26.9-34.4)
[2017-10-11 18:18] LABS: ALBUMIN 3.7 g/dl (3.4-5.0); ANION GAP 9 (8-16); BILIRUBIN,TOTAL 1.5 mg/dL (0.2-1.0); BLOOD UREA NITROGEN 47 mg/dL (7-18); CALCIUM 8.1 mg/dL (8.5-10.1); CHLORIDE 98 mmol/L (98-107); CO2 30 mmol/L (21-32); CREATININE 2.1 mg/dL (0.7-1.3); GLUCOSE,RANDOM 84 mg/dL (74-106); POTASSIUM 3.3 mmol/L (3.5-5.1); SGOT/AST 17 U/L (15-37); SGPT/ALT 11 U/L (12-78); SODIUM 137 mmol/L (136-145); TOT PROT 7.4 g/dl (6.4-8.2)
[2017-10-11 18:45] LABS: ALK PHOS 102 U/L (45-117); N-TERMINAL BNP 52709.81 pg/ml (5-450)
[2017-10-11 19:24] LABS: URINE APPEARANCE CLEAR; URINE BILIRUBIN NEGATIVE (NEGATIVE); URINE BLOOD NEGATIVE (NEGATIVE); URINE COLOR LTYELLOW; URINE GLUCOSE (UA) NEGATIVE (NEGATIVE); URINE KETONE NEGATIVE (NEGATIVE); URINE NITRITE NEGATIVE (NEGATIVE); URINE PROTEIN NEGATIVE (NEGATIVE); URINE UROBILINOGEN NEGATIVE mg/dL (0.2-1.0)
[2017-10-11 19:25] LABS: URINE LEUK ESTERASE 3+ (NEGATIVE)
--- NOTE | 2017-10-11 19:29 | PDOC ---
*Physical Exam - Vital Signs Last Vital Signs Temp Pulse Resp BP Pulse Ox 97.8 F 89 22 137/80 97 10/11/17 14:31 10/11/17 18:26 10/11/17 18:26 10/11/17 18:26 10/11/17 18:27 - Physical Exam Comments: 10/11/17 20:01 GENERAL: Awake, alert, and fully oriented, in no acute distress, asking to eat HEAD: No signs of trauma, normocephalic, atraumatic EYES: PERRLA, EOMI, sclera anicteric, conjunctiva clear ENT: Auricles normal inspection, hearing grossly normal, nares patent, oropharynx clear without exudates. Moist mucosa NECK: Normal ROM, supple, no lymphadenopathy, JVD, or masses LUNGS: No distress, speaks full sentences, rales in lower lung desir HEART: Regular rate and rhythm, normal S1 and S2, no murmurs, rubs or gallops, peripheral pulses normal and equal bilaterally. ABDOMEN: Soft, nontender, normoactive bowel sounds. No guarding, no rebound. No masses EXTREMITIES: 2+ pitting edema, Normal range of motion. No clubbing or cyanosis. NEUROLOGICAL: Cranial nerves II through XII grossly intact. Normal speech, normal gait, no focal sensorimotor deficits SKIN: Warm, Dry, normal turgor, no rashes or lesions noted. ED Treatment Course - LABORATORY CBC & Chemistry Diagram: 10/11/17 Unknown 10/11/17 Unknown - ADDITIONAL ORDERS Additional order review: Laboratory Results 10/11/17 10/11/17 10/11/17 Unknown Unknown 19:08 PT with INR 16.70 H INR 1.48 H PTT (Actin FS) 28.4 Sodium 137 Potassium 3.3 L Chloride 98 Carbon Dioxide 30 Anion Gap 9 BUN 47 H D Creatinine 2.1 H Creat Clearance w eGFR 30.02 Random Glucose 84 Calcium 8.1 L Total Bilirubin 1.5 H D AST 17 ALT 11 L D Alkaline Phosphatase 102 Creatine Kinase 49 Troponin I 0.03 D B-Natriuretic Peptide 47549.81 H Total Protein 7.4 Albumin 3.7 Urine Color Ltyellow Urine Appearance Clear Urine pH 6.0 Ur Specific Perkins 1.008 Urine Protein Negative Urine Glucose (UA) Negative Urine Ketones Negative Urine Blood Negative Urine Nitrite Negative Urine Bilirubin Negative Urine Urobilinogen Negative 10/11/17 Unknown RBC 4.10 MCV 79.7 L D MCHC 32.4 RDW 23.5 H D MPV 9.9 Neutrophils % 64.1 Lymphocytes % 16.0 Monocytes % 12.0 H Eosinophils % 6.8 H D Basophils % 1.1 - Medications Given in the ED: ED Medications Discontinued Medications Generic Name Dose Route Start Last Admin Trade Name Isidoro PRN Reason Stop Dose Admin Furosemide 60 mg 10/11/17 17:11 10/11/17 17:45 Lasix Injection - IVPUSH 10/11/17 17:12 60 mg ONCE ONE Administration Medical Decision Making - Medical Decision Making 10/11/17 20:02 Laboratory Tests 10/11/17 10/11/17 10/11/17 19:08 Unknown Unknown WBC 5.3 Hgb 10.6 L Hct 32.7 L Plt Count 86 L D Potassium 3.3 L BUN 47 H D Creatinine 2.1 H Troponin I 0.03 D B-Natriuretic Peptide 59127.81 H Urine Nitrite Negative CBC shows slight anemia, platelets lower than baseline. K 3.3. BUN/Cr at baseline. Trop to 0.03. BNP 52k. Patient is in CHF exacerbation, and fluid overloaded. Already given 60mg lasix. Patient is comfortable. Will admit. *DC/Admit/Observation/Transfer Diagnosis at time of Disposition: CHF (congestive heart failure) Qualifiers: Congestive heart failure type: unspecified congestive heart failure type Congestive heart failure chronicity: chronic Qualified Code(s): I50.9 - Heart failure, unspecified - Discharge Dispostion Condition at time of disposition: Stable Admit: Yes - Referrals Referrals: Anmol Casey MD [Primary Care Provider] - - Patient Instructions - Post Discharge Activity
[2017-10-11 20:10] LABS: ANISOCYTOSIS 2+; MACROCYTOSIS 1+
[2017-10-11 20:11] LABS: OVALOCYTE 1+; PLATELET ESTIMATE SLT DECREASE
[2017-10-11 20:14] LABS: URINE BACTERIA MODERATE /hpf (NONE SEEN)
--- NOTE | 2017-10-11 20:22 | HP ---
CHIEF COMPLAINT: LE edema PCP: Dr. Knowles [employer]: Dr. Campuzano HISTORY OF PRESENT ILLNESS: 87yo M with significant history of CAD (s/p CABG 5 yrs ago; NSTEMI s/p 2x stent and AICD placement 05/2017), systolic CHF (last echo 06/10/17), HTN, HLD, and pre-diabetes who presents to the ED for lower extremity edema. Pt reports how he was hospitalized here in July of 2017 with the same complaint. He was diuresed and sent to a rehab facility for strengthening. Today he finally got back to his home and had a visiting nurse service come to his house today who noticed his lower extremities were extremely edematous. Pt confirms how his legs are increased in size and has some tingling. He also reports sleeping on two pillows normally, however he has not had to increase the amount of pillows needed. Pt currently denies lightheadedness/dizziness, n/v, SOB, CP/discomfort, palpitations, abdominal pain, urinary difficulties, and any constitutional symptoms including dysuria, urgency, or polyuria. ER course was notable for: (1) CXR - Increased vascular congestion noted (2) EKG - Sinus rhythm with old inferior infarct and Qtc of 503 (3) Lasix 60mg IVP x1 Recent Travel: Denies PAST MEDICAL HISTORY: CAD (s/p CABG 5 yrs ago) NSTEMI s/p 2x stent and AICD placement 05/2017 systolic CHF (last echo 06/10/17) HTN HLD Pre-diabetes *Last A1c 6.5* COPD Anxiety Insomnia CKD PAST SURGICAL HISTORY: CABG (2011) Stent placement (05/2017; unknown material) AICD placement (05/2017; unknown last interrogation) Social History: Smoking: Former, quit 35 years ago Alcohol: Denies Drugs: Denies Family History: Noncontributory Allergies amoxicillin trihydrate [From Augmentin] Adverse Reaction (Mild, Verified 15:22) gi upset atorvastatin calcium [From Lipitor] Adverse Reaction (Mild, Verified 10/11/17 15 :22) gi upset potassium clavulanate [From Augmentin] Adverse Reaction (Mild, Verified 15:22) gi upset HOME MEDICATIONS: Home Medications Medication Instructions Recorded Simvastatin 20 mg PO HS 06/10/17 Clopidogrel Bisulfate [Plavix -] 75 mg PO AM #30 tab 06/21/17 Potassium Chloride 20 meq PO DAILY 06/27/17 Aspirin [Ecotrin] 81 mg PO DAILY #30 tablet. 06/30/17 Furosemide [Lasix -] 60 mg PO BID #60 tablet 07/21/17 Ofloxacin Otic [Floxin Otic -] 5 drop AD BID #1 bottle 07/21/17 Carvedilol 6.25 mg PO HS 08/01/17 Meclizine HCl [Antivert -] 12.5 mg PO TID PRN 08/01/17 Acetaminophen [Tylenol .Regular 650 mg PO Q6H PRN #0 tablet 08/09/17 Strength -] Albuterol 0.083% Nebulizer Lena 1 amp NEB TIDR PRN #0 amp 08/09/17 [Ventolin 0.083% Nebulizer Soln -] Alprazolam [Xanax] 0.5 mg PO HS PRN #30 tablet MDD 1 08/09/17 Carvedilol [Coreg -] 3.125 mg PO DAILY@0700 #30 tablet 08/09/17 Meclizine HCl [Antivert -] 25 mg PO BID tablet 08/09/17 Polyethylene Glycol 3350 [Miralax 17 gm PO DAILY bottle 08/09/17 119 gm Btl -] Spironolactone [Aldactone -] 25 mg PO DAILY tablet 08/09/17 Melatonin 3 mg PO DAILY 09/23/17 REVIEW OF SYSTEMS CONSTITUTIONAL: Absent: fever, chills, diaphoresis, generalized weakness, malaise, loss of appetite, weight change HEENT: Absent: rhinorrhea, nasal congestion, throat pain, throat swelling, difficulty swallowing, mouth swelling, ear pain, eye pain, visual changes CARDIOVASCULAR: Present: Peripheral edema Absent: chest pain, syncope, palpitations, irregular heart rate, lightheadedness RESPIRATORY: Absent: cough, shortness of breath, dyspnea with exertion, orthopnea, wheezing, stridor, hemoptysis GASTROINTESTINAL: Absent: abdominal pain, abdominal distension, nausea, vomiting, diarrhea, constipation, melena, hematochezia GENITOURINARY: Absent: dysuria, frequency, urgency, hesitancy, hematuria, flank pain, genital pain HEMATOLOGIC/IMMUNOLOGIC: Absent: easy bleeding, easy bruising, lymphadenopathy, frequent infections NEUROLOGIC: Absent: headache, focal weakness or paresthesias, dizziness, unsteady gait, seizure, mental status changes, bladder or bowel incontinence PSYCHIATRIC: Absent: anxiety, depression PHYSICAL EXAMINATION Vital Signs - 24 hr 10/11/17 10/11/17 10/11/17 14:31 18:26 18:27 Temperature 97.8 F Pulse Rate 83 Pulse Rate [ 89 Left Radial] Respiratory 18 22 Rate Blood Pressure 195/90 Blood Pressure 137/80 [Left Arm] O2 Sat by Pulse 100 97 97 Oximetry (%) GENERAL: NAD, Awake, alert, and fully oriented, speaking in sentences without pausing HEENT: EOMI, SIMON, Sclera anicteric, no appreciable JVD at rest LUNGS: Diffuse rales throughout all lung desir; good air entry; regular rate No wheezes, rhonchi. No accessory muscle use. HEART: RRR, normal S1 and S2 without murmur ABDOMEN: Soft, nontender, nondistended, normoactive bowel sounds, no guarding, hepatojugular reflux +. No hepatomegaly MUSCULOSKELETAL: Normal range of motion at all joints. No bony deformities or tenderness. No CVA tenderness. EXTREMITIES: 2+ DP pulses, warm, well-perfused, 3+ pitting edema to groin, scars noted on medial aspect of b/l lower extremities NEUROLOGICAL: Cranial nerves II-XII intact. Normal speech. Gait not observed PSYCHIATRIC: Cooperative. Good eye contact. Appropriate mood and affect. SKIN: Warm, dry, no rashes noted, cap refill <2sec Laboratory Results - last 24 hr 10/11/17 10/11/17 10/11/17 19:08 Unknown Unknown WBC 5.3 RBC 4.10 Hgb 10.6 L Hct 32.7 L MCV 79.7 L D MCH 25.9 MCHC 32.4 RDW 23.5 H D Plt Count 86 L D MPV 9.9 Neutrophils % 64.1 Lymphocytes % 16.0 Monocytes % 12.0 H Eosinophils % 6.8 H D Basophils % 1.1 Platelet Estimate Slt decrease Platelet Comment Polychromasia 1+ Poikilocytosis 1+ Anisocytosis 2+ Macrocytosis 1+ Ovalocytes 1+ PT with INR 16.70 H INR 1.48 H PTT (Actin FS) 28.4 Sodium Potassium Chloride Carbon Dioxide Anion Gap BUN Creatinine Creat Clearance w eGFR Random Glucose Calcium Total Bilirubin AST ALT Alkaline Phosphatase Creatine Kinase Troponin I B-Natriuretic Peptide Total Protein Albumin Urine Color Ltyellow Urine Appearance Clear Urine pH 6.0 Ur Specific Rhame 1.008 Urine Protein Negative Urine Glucose (UA) Negative Urine Ketones Negative Urine Blood Negative Urine Nitrite Negative Urine Bilirubin Negative Urine Urobilinogen Negative Urine WBC (Auto) 64 Urine RBC (Auto) 2 Urine Bacteria Moderate 10/11/17 Unknown WBC RBC Hgb Hct MCV MCH MCHC RDW Plt Count MPV Neutrophils % Lymphocytes % Monocytes % Eosinophils % Basophils % Platelet Estimate Platelet Comment Polychromasia Poikilocytosis Anisocytosis Macrocytosis Ovalocytes PT with INR INR PTT (Actin FS) Sodium 137 Potassium 3.3 L Chloride 98 Carbon Dioxide 30 Anion Gap 9 BUN 47 H D Creatinine 2.1 H Creat Clearance w eGFR 30.02 Random Glucose 84 Calcium 8.1 L Total Bilirubin 1.5 H D AST 17 ALT 11 L D Alkaline Phosphatase 102 Creatine Kinase 49 Troponin I 0.03 D B-Natriuretic Peptide 98560.81 H Total Protein 7.4 Albumin 3.7 Urine Color Urine Appearance Urine pH Ur Specific Rhame Urine Protein Urine Glucose (UA) Urine Ketones Urine Blood Urine Nitrite Urine Bilirubin Urine Urobilinogen Urine WBC (Auto) Urine RBC (Auto) Urine Bacteria ASSESSMENT/PLAN: 1) Acute on chronic systolic CHF exacerbation --NYHA Class II --BNP 52,000s (doubling from previous levels) --Most recent echo 05/2017: LV systolic function severely decreased with LV dilation and global hypokinesis; LA enlargement; Mod MR; mild --Lasix 4mg IVP BID --Daily weights --Continue Aldactone 25mg qDaily PO --Continue Coreg 3.125mg qDaily PO --Albuterol PRN if shortness of breath develops --Consulted Dr. Campuzano of cardiology 2) CAD --Continue Plavix 75mg qDaily --Continue Lipitor 10mg HS --ASA 81mg qdaily 3) Pre-diabetes --Diet controlled --diabetic/sodium controlled diet --Last A1c 6.5 4) CKD --Most likely 2/2 cardiorenal syndrome --Cr at baseline (2.1) --Avoid nephrotoxic agents --Trend BMP FEN Fluids: Avoid due to hypervolemic state Electrolyte Abnormalities: Hypokalemia (3.3); Repleted with KDur 40mEq once Nutrition: Sodium controlled, diabetic diet PPX DVT - mod risk - Heparin SQ TID Dispo: Admit to tele Case discussed with Dr. Hugo Joyner, DO - Internal Medicine PGY-1 Visit type - Emergency Visit Emergency Visit: Yes ED Registration Date: 10/11/17 Care time: The patient presented to the Emergency Department on the above date and was hospitalized for further evaluation of their emergent condition. - New Patient This patient is new to me today: Yes Date on this admission: 10/12/17 - Critical Care Critical Care patient: No
[2017-10-11] MEDS ORDERED: POTASSIUM CHLORIDE TABS 20 MEQ TABLET.ER (FP) PO ONE ×2 (20:37→21:07)
[2017-10-11] MEDS ORDERED: ALBUTEROL SO4 0.083% IH SOL 2.5 MG/3 ML VIAL.NEB. NEB PRN (20:37)
--- NOTE | 2017-10-11 20:55 | PN ---
Teaching Attending Note Name of Resident: Aleksandr Joyner ATTENDING PHYSICIAN STATEMENT I saw and evaluated the patient. I reviewed the resident's note and discussed the case with the resident. I agree with the resident's findings and plan as documented. SUBJECTIVE: This is an 87 year old man with a history of CAD, DE, CABG, stents, AICD, chronic systolic heart failure, HTN, hyperlipidemia, CKD who presents to the ED with leg swelling. He was admitted here 07/17-08/09 with acute CHF, and he was discharged to [facility]. Today, visiting nurse noted significant lower extremity edema. He denies chest pain, palpitations, SOB, hematuria, dysuia, urinary frequency, PND, orhopnea. OBJECTIVE: Vital Signs Period Temp Pulse Resp BP Sys/العلي Pulse Ox Last 24 Hr 97.8 F 83-89 18-22 137-195/80-90 97-100 HEART: S1S2, RRR LUNGS: Bilateral rales ABDOMEN: Soft, non-tender, non-distended, normal BS EXTREMITIES: 2+ edema of both legs Laboratory Tests 10/11/17 10/11/17 10/11/17 19:08 Unknown Unknown WBC 5.3 RBC 4.10 Hgb 10.6 L Hct 32.7 L MCV 79.7 L D MCH 25.9 MCHC 32.4 RDW 23.5 H D Plt Count 86 L D MPV 9.9 Neutrophils % 64.1 Lymphocytes % 16.0 Monocytes % 12.0 H Eosinophils % 6.8 H D Basophils % 1.1 Platelet Estimate Slt decrease Platelet Comment Polychromasia 1+ Poikilocytosis 1+ Anisocytosis 2+ Macrocytosis 1+ Ovalocytes 1+ PT with INR 16.70 H INR 1.48 H PTT (Actin FS) 28.4 Sodium Potassium Chloride Carbon Dioxide Anion Gap BUN Creatinine Creat Clearance w eGFR Random Glucose Calcium Total Bilirubin AST ALT Alkaline Phosphatase Creatine Kinase Troponin I B-Natriuretic Peptide Total Protein Albumin Urine Color Ltyellow Urine Appearance Clear Urine pH 6.0 Ur Specific Clever 1.008 Urine Protein Negative Urine Glucose (UA) Negative Urine Ketones Negative Urine Blood Negative Urine Nitrite Negative Urine Bilirubin Negative Urine Urobilinogen Negative Urine WBC (Auto) 64 Urine RBC (Auto) 2 Urine Bacteria Moderate 10/11/17 Unknown WBC RBC Hgb Hct MCV MCH MCHC RDW Plt Count MPV Neutrophils % Lymphocytes % Monocytes % Eosinophils % Basophils % Platelet Estimate Platelet Comment Polychromasia Poikilocytosis Anisocytosis Macrocytosis Ovalocytes PT with INR INR PTT (Actin FS) Sodium 137 Potassium 3.3 L Chloride 98 Carbon Dioxide 30 Anion Gap 9 BUN 47 H D Creatinine 2.1 H Creat Clearance w eGFR 30.02 Random Glucose 84 Calcium 8.1 L Total Bilirubin 1.5 H D AST 17 ALT 11 L D Alkaline Phosphatase 102 Creatine Kinase 49 Troponin I 0.03 D B-Natriuretic Peptide 43391.81 H Total Protein 7.4 Albumin 3.7 Urine Color Urine Appearance Urine pH Ur Specific Clever Urine Protein Urine Glucose (UA) Urine Ketones Urine Blood Urine Nitrite Urine Bilirubin Urine Urobilinogen Urine WBC (Auto) Urine RBC (Auto) Urine Bacteria Home Medications Medication Instructions Recorded Simvastatin 20 mg PO HS 06/10/17 Clopidogrel Bisulfate [Plavix -] 75 mg PO AM #30 tab 06/21/17 Potassium Chloride 20 meq PO DAILY 06/27/17 Aspirin [Ecotrin] 81 mg PO DAILY #30 tablet. 06/30/17 Furosemide [Lasix -] 60 mg PO BID #60 tablet 07/21/17 Ofloxacin Otic [Floxin Otic -] 5 drop AD BID #1 bottle 07/21/17 Carvedilol 6.25 mg PO HS 08/01/17 Meclizine HCl [Antivert -] 12.5 mg PO TID PRN 08/01/17 Acetaminophen [Tylenol .Regular 650 mg PO Q6H PRN #0 tablet 08/09/17 Strength -] Albuterol 0.083% Nebulizer Lena 1 amp NEB TIDR PRN #0 amp 08/09/17 [Ventolin 0.083% Nebulizer Soln -] Alprazolam [Xanax] 0.5 mg PO HS PRN #30 tablet MDD 1 08/09/17 Carvedilol [Coreg -] 3.125 mg PO DAILY@0700 #30 tablet 08/09/17 Meclizine HCl [Antivert -] 25 mg PO BID tablet 08/09/17 Polyethylene Glycol 3350 [Miralax 17 gm PO DAILY bottle 08/09/17 119 gm Btl -] Spironolactone [Aldactone -] 25 mg PO DAILY tablet 08/09/17 Melatonin 3 mg PO DAILY 09/23/17 ASSESSMENT AND PLAN: This is an 87 year old man with a history of CAD, DE, CABG, stents, chronic systolic heart failure, AICD, HTN, hyperlipidemia, CKD who presents to the ED with leg swelling. He was found to have potassium 3.3, BUN 47/creatinine 2.1, BNP 39485.81. 1. Acute on chronic systolic heart failure - Admit to telemetry - Lasix 40 mg IV bid - Continue Aldactone - Monitor I&O, weight - Has AICD 2. Hypokalemia - Replete potassium 3. CAD, history of DE/CABG/stents - Continue aspirin, Plavix, Coreg, Zocor 4. HTN - Continue Coreg, Lasix, Aldactone 5. Hyperlipidemia - Continue Zocor 6. Stage 4 CKD - Stable - Monitor creatinine with diuresis
[2017-10-11] MEDS ORDERED: PATIENT'S OWN MEDICATION (NON-FORMULARY) (Simvastatin [Simvastatin] 20 MG) PO SCH (22:00)
[2017-10-12] MEDS: MELATONIN 1 MG TABLET PO SCH ×2 (01:06→22:40)
[2017-10-12] MEDS: ATORVASTATIN CA 10 MG TABLET (FP) PO SCH ×2 (01:06→22:46)
[2017-10-12] MEDS ORDERED: FUROSEMIDE 40 MG/4 ML INJECTABLE VIAL IVPUSH SCH (06:00)
[2017-10-12 06:29] LABS: HEMATOCRIT 34.8 % (35.4-49); HEMOGLOBIN 11.3 GM/dL (11.7-16.9); MCHC 32.6 g/dl (32.0-35.9); MEAN CELL VOLUME 79.8 fl (80-96); PLATELET COUNT 105 K/MM3 (134-434); RBC 4.36 M/mm3 (4.00-5.60); RDW 23.9 % (11.9-15.9); WHITE BLOOD COUNT 5.4 K/mm3 (4.0-10.0)
[2017-10-12] MEDS ORDERED: HEPARIN NA (PORCINE) 5,000 UNITS/ML 1ML VIAL ONE (06:44)
[2017-10-12] MEDS ORDERED: FUROSEMIDE 40 MG/4 ML INJECTABLE VIAL ONE (06:44)
[2017-10-12] MEDS: HEPARIN NA (PORCINE) 5,000 UNITS/ML 1ML VIAL SQ SCH ×3 (06:47→22:40)
[2017-10-12] MEDS: FUROSEMIDE 40 MG/4 ML INJECTABLE VIAL IVPUSH SCH ×2 (06:47→14:55)
[2017-10-12 06:55] LABS: ALBUMIN 3.9 g/dl (3.4-5.0); ANION GAP 15 (8-16); BILIRUBIN,TOTAL 1.3 mg/dL (0.2-1.0); BLOOD UREA NITROGEN 45 mg/dL (7-18); CHLORIDE 97 mmol/L (98-107); CO2 27 mmol/L (21-32); CREATININE 2.2 mg/dL (0.7-1.3); GLUCOSE,RANDOM 97 mg/dL (74-106); MAGNESIUM 2.5 mg/dL (1.8-2.4); PHOSPHOROUS 3.5 mg/dL (2.5-4.9); SGOT/AST 19 U/L (15-37); SGPT/ALT 13 U/L (12-78); SODIUM 139 mmol/L (136-145); TOT PROT 7.5 g/dl (6.4-8.2)
[2017-10-12 06:56] LABS: ALK PHOS 115 U/L (45-117)
[2017-10-12] MEDS ORDERED: CARVEDILOL 12.5 MG TABLET (FP) ONE (07:10)
[2017-10-12] MEDS ORDERED: CLOPIDOGREL BISULFATE 75 MG TABLET (FP) ONE (07:10)
[2017-10-12] MEDS: CARVEDILOL 3.125 MG TABLET (FP) PO SCH (07:15)
[2017-10-12] MEDS: CLOPIDOGREL BISULFATE 75 MG TABLET (FP) PO SCH (07:15)
[2017-10-12] MEDS ORDERED: SPIRONOLACTONE 25 MG TABLET (FP) ONE (09:25)
[2017-10-12] MEDS: POLYETHYLENE GLYCOL 3350 119 GM BTL PO SCH (09:27)
[2017-10-12] MEDS: SPIRONOLACTONE 25 MG TABLET (FP) PO SCH (09:27)
[2017-10-12] MEDS: ASPIRIN COATED 81 MG TABLET.EC PO SCH (09:27)
--- NOTE | 2017-10-12 10:35 | CON.PULM ---
Consult Consult Specialty:: PULMONARY Referred by:: TAISHA Reason for Consultation:: SOB/WEAKNESS/LEG EDEMA - History of Present Illness Chief Complaint: SOB/LEG EDEMA History of Present Illness: The patient is an 87M with a PMH of HTN, HLD, CAD s/p CABG (5 years ago), NSTEMI s/p 2x stent and AICD placement (05/30) who presents to the ED with complaints of increased LE swelling and shortness of breath. The patient was in [facility] post his last hospitalization and was doing well.. He was discharged from SNF and was home for 24 hours when the VNS noticed that he was edematous up to his stomach.I was called and recommended he to come to the ER for further evaluation. He did not have a chance to fill any scripts given him by the SNF. Patient has been admitted to hospital multiple times this past year and it is clear that he is unable to care for himself at home. 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 No: Alzheimer's Cardio/Vascular: Yes: CAD, CHF, HTN, Hyperlipdemia Pulmonary: Yes: COPD, Sleep Apnea. No: O2 Dependent, Pneumonia, Previously Intubated Renal/: Yes: Renal Inusuff Heme/Onc: Yes: Anemia Infectious Disease: No: AIDS Psych: No: Addictions Musculoskeletal: No: Bursitis Rheumatology: Yes: Fibromyalgia ENT: Yes: Other (hearing loss (hearing aids) ) Endocrine: No: Diabetes Mellitus - Past Surgical History Past Surgical History: Yes: CABG Additional Surgical History: aicd/pci stents - Alcohol/Substance Use Hx Alcohol Use: No - Smoking History Smoking history: Never smoked Have you smoked in the past 12 months: No Aproximately how many cigarettes per day: 0 If you are a former smoker, when did you quit?: 35 years ago - Social History Usual Living Arrangement: Alone ADL: Support Services Place of : [facility] History of Recent Travel: No Home Medications - Allergies Allergies/Adverse Reactions: Allergies Allergy/AdvReac Type Severity Reaction Status Date / Time amoxicillin trihydrate AdvReac Mild gi upset Verified 10/11/17 15:22 [From Augmentin] atorvastatin calcium AdvReac Mild gi upset Verified 10/11/17 15:22 [From Lipitor] potassium clavulanate AdvReac Mild gi upset Verified 10/11/17 15:22 [From Augmentin] - Home Medications Home Medications: Ambulatory Orders Simvastatin 20 mg PO HS 06/10/17 Clopidogrel Bisulfate [Plavix -] 75 mg PO AM #30 tab 06/21/17 Potassium Chloride 20 meq PO DAILY 06/27/17 Aspirin [Ecotrin] 81 mg PO DAILY #30 tablet. 06/30/17 Furosemide [Lasix -] 60 mg PO BID #60 tablet 07/21/17 Ofloxacin Otic [Floxin Otic -] 5 drop AD BID #1 bottle 07/21/17 Carvedilol 6.25 mg PO HS 08/01/17 Meclizine HCl [Antivert -] 12.5 mg PO TID PRN 08/01/17 Acetaminophen [Tylenol .Regular Strength -] 650 mg PO Q6H PRN #0 tablet Albuterol 0.083% Nebulizer Lena [Ventolin 0.083% Nebulizer Soln -] 1 amp NEB TIDR PRN #0 amp 08/09/17 Alprazolam [Xanax] 0.5 mg PO HS PRN #30 tablet MDD 1 08/09/17 Carvedilol [Coreg -] 3.125 mg PO DAILY@0700 #30 tablet 08/09/17 Meclizine HCl [Antivert -] 25 mg PO BID tablet 08/09/17 Polyethylene Glycol 3350 [Miralax 119 gm Btl -] 17 gm PO DAILY bottle 08/09/17 Spironolactone [Aldactone -] 25 mg PO DAILY tablet 08/09/17 Melatonin 3 mg PO DAILY 09/23/17 Family Disease History - Family Disease History Family History: Unremarkable Review of Systems - Review of Systems Cardiovascular: denies: Chest Pain Respiratory: reports: Cough, Exercise Intolerance, Orthopnea, SOB on Exertion. denies: Hemoptysis Gastrointestinal: denies: Abdominal Pain Physical Exam Vital Sings: Vital Signs Temperature 97.8 F 10/12/17 09:31 Pulse Rate 79 10/12/17 09:31 Respiratory Rate 18 10/12/17 09:31 Blood Pressure 131/77 10/12/17 09:31 O2 Sat by Pulse Oximetry (%) 97 10/12/17 09:31 Constitutional: Yes: Anxious Eyes: Yes: EOM Intact HENT: Yes: Normocephalic Neck: Yes: Trachea Midline Cardiovascular: Yes: Regular Rate and Rhythm, S1, S2 Respiratory: Yes: Diminished Gastrointestinal: Yes: Soft, Abdomen, Obese Edema: Yes Edema: LLE: 3+, RLE: 3+ Neurological: Yes: Alert ...Motor Strength: WNL Psychiatric: Yes: WNL Labs: CBC, BMP 10/12/17 06:15 10/12/17 06:14 rest noted Imaging - Results Chest X-ray: Report Reviewed, Image Reviewed Problem List - Problems (1) CHF (congestive heart failure) Code(s): I50.9 - HEART FAILURE, UNSPECIFIED Qualifiers: Congestive heart failure type: unspecified congestive heart failure type Congestive heart failure chronicity: chronic Qualified Code(s): I50.9 - Heart failure, unspecified (2) Acute exacerbation of CHF (congestive heart failure) Code(s): I50.9 - HEART FAILURE, UNSPECIFIED (3) Anxiety Code(s): F41.9 - ANXIETY DISORDER, UNSPECIFIED (4) COPD (chronic obstructive pulmonary disease) Code(s): J44.9 - CHRONIC OBSTRUCTIVE PULMONARY DISEASE, UNSPECIFIED (5) Chronic mastoiditis, bilateral Code(s): H70.13 - CHRONIC MASTOIDITIS, BILATERAL (6) Compliance poor Code(s): Z91.19 - PATIENT'S NONCOMPLIANCE W OTH MEDICAL TREATMENT AND REGIMEN Assessment/Plan RESTART ALL CARDIAC MEDS INCLUDING DIURETICS O2/BRONCHODILATORS/DAILY WEIGHT/NA/FLUID RESTRICT DIET URINE CULTURE WILL NEED LONG-TERM ADMISSION TO SNF WHEN READY FOR DISCHARGE
--- NOTE | 2017-10-12 11:03 | EKG ---
Test Reason : Blood Pressure : / mmHG Vent. Rate : 087 BPM Atrial Rate : 087 BPM P-R Int : 172 ms QRS Dur : 136 ms QT Int : 418 ms P-R-T Axes : 051 -55 101 degrees QTc Int : 502 ms SINUS RHYTHM WITH FREQUENT PREMATURE VENTRICULAR COMPLEXES LEFT AXIS DEVIATION LEFT BUNDLE BRANCH BLOCK ABNORMAL ECG WHEN COMPARED WITH ECG OF 01-AUG-2017 12:12, NO SIGNIFICANT CHANGE WAS FOUND Confirmed by JOCY SALAS, KIMBERLY ([id number]) on 10/12/2017 11:03:34 AM Referred By: Confirmed By:KIMBERLY SANDRA MD
--- NOTE | 2017-10-12 11:58 | PN ---
Progress Note (short form) - Note Progress Note: has no complaints. states his [employer] noted his legs were swelling "they were not bothering me". does admit to urinary urgency but does not have difficultly controlling bladder. deneis CP, SOB, fever, chills, cough, orthopnea, N/V/C/D, dysuria, hematuria or urinary frequency. Current Medications Generic Name Dose Route Start Last Admin Trade Name Freq PRN Reason Stop Dose Admin Albuterol Sulfate 1 amp 10/11/17 20:37 Ventolin 0.083% Nebulizer Soln - NEB TIDR PRN SHORT OF BREATH/WHEEZING Aspirin 81 mg 10/12/17 10:00 10/12/17 09:27 Ecotrin - PO 81 mg DAILY JEREMÍAS Administration Atorvastatin Calcium 10 mg 10/11/17 22:00 10/12/17 01:06 Lipitor - PO 10 mg HS JEREMÍAS Administration Carvedilol 3.125 mg 10/12/17 07:00 10/12/17 07:15 Coreg - PO 3.125 mg DAILY@0700 JEREMÍAS Administration Clopidogrel Bisulfate 75 mg 10/12/17 07:00 10/12/17 07:15 Plavix - PO 75 mg AM JEREMÍAS Administration Furosemide 40 mg 10/12/17 06:00 10/12/17 06:47 Lasix Injection - IVPUSH 40 mg BID@0600,1400 JEREMÍAS Administration Heparin Sodium (Porcine) 5,000 unit 10/12/17 06:00 10/12/17 06:47 Heparin - SQ 5,000 unit TID JEREMÍAS Administration Melatonin 3 mg 10/11/17 22:00 10/12/17 01:06 Melatonin PO 3 mg HS JEREMÍAS Administration Polyethylene Glycol 17 gm 10/12/17 10:00 10/12/17 09:27 Miralax (For Daily Use) - PO 17 gm DAILY JEREMÍAS Administration Spironolactone 25 mg 10/12/17 10:00 10/12/17 09:27 Aldactone - PO 25 mg DAILY JEREMÍAS Administration Last Vital Signs Temp Pulse Resp BP Pulse Ox 97.8 F 79 18 131/77 97 10/12/17 09:31 10/12/17 09:31 10/12/17 09:31 10/12/17 09:31 10/12/17 09:31 Intake & Output 10/09/17 10/10/17 10/11/17 10/12/17 23:59 23:59 23:59 23:59 Weight 280 lb General NAD CV S1 S2 RRR no murmur/rub/gallop Lungs CTA B/L no wheezing/rales/rhonchi Abodmen soft NT/ND Extremiites 3+ B/L pitting edema CBCD WBC 5.4 K/mm3 (4.0-10.0) 10/12/17 06:15 RBC 4.36 M/mm3 (4.00-5.60) 10/12/17 06:15 Hgb 11.3 GM/dL (11.7-16.9) L 10/12/17 06:15 Hct 34.8 % (35.4-49) L 10/12/17 06:15 MCV 79.8 fl (80-96) L 10/12/17 06:15 MCHC 32.6 g/dl (32.0-35.9) 10/12/17 06:15 RDW 23.9 % (11.9-15.9) H 10/12/17 06:15 Plt Count 105 K/MM3 (134-434) L D 10/12/17 06:15 MPV 10.0 fl (7.5-11.1) 10/12/17 06:15 CMP Sodium 139 mmol/L (136-145) 10/12/17 06:14 Potassium 4.0 mmol/L (3.5-5.1) D 10/12/17 06:14 Chloride 97 mmol/L (98-107) L 10/12/17 06:14 Carbon Dioxide 27 mmol/L (21-32) 10/12/17 06:14 Anion Gap 15 (8-16) 10/12/17 06:14 BUN 45 mg/dL (7-18) H 10/12/17 06:14 Creatinine 2.2 mg/dL (0.7-1.3) H 10/12/17 06:14 Creat Clearance w eGFR 28.45 (>60) 10/12/17 06:14 Calcium 9.0 mg/dL (8.5-10.1) 10/12/17 06:14 Total Bilirubin 1.3 mg/dL (0.2-1.0) H 10/12/17 06:14 AST 19 U/L (15-37) 10/12/17 06:14 ALT 13 U/L (12-78) 10/12/17 06:14 Alkaline Phosphatase 115 U/L (45-117) 10/12/17 06:14 Total Protein 7.5 g/dl (6.4-8.2) 10/12/17 06:14 Albumin 3.9 g/dl (3.4-5.0) 10/12/17 06:14 CXR no acute process Assessment and Plan: 87 year old man with a history of CAD s/p CABG & stents, chronic systolic heart failure s/p AICD, HTN, hyperlipidemia, CKD who presents to the ED with leg swelling. 1. Acute on chronic systolic heart failure- dry weight ?282 per pt. cont lasix 60mg IVP BID, cont spiractone and coreg, betablocker. cardio and pulm consulted. monitor electrolytes. daily weights, strict I&O. 2. Hypokalemia- Resolved 3. UTI- start ceftriaxone. f/u Cx 4. CAD, history of MA/CABG/stents- no signs of ACS. cardiac enzymes neg x2. Continue aspirin, Plavix, Coreg, Zocor 5. HTN- Continue Coreg, Lasix, Aldactone 6. Hyperlipidemia- Continue Zocor 7. Acute on chronic CKD- baseline 2. likely mediction induced vs pre-renal. cont lasix. monitor kidney function. 8. DVT ppx- hep sq Visit type - Emergency Visit Emergency Visit: Yes ED Registration Date: 10/11/17 Care time: The patient presented to the Emergency Department on the above date and was hospitalized for further evaluation of their emergent condition. - New Patient This patient is new to me today: Yes Date on this admission: 10/12/17 - Critical Care Critical Care patient: No - Discharge Referral Referred to [facility] Med P.C.: No
[2017-10-12] MEDS ORDERED: CEFTRIAXONE 1 GM/50 ML BAG ONE (14:56)
[2017-10-12] MEDS: CEFTRIAXONE 1 G/50 ML PREMIX 50 ML IVPB SCH (14:57)
--- NOTE | 2017-10-12 18:20 | CONS ---
DATE OF CONSULTATION: 10/12/2017 REQUESTING PHYSICIAN: CHIEF COMPLAINT: Increasing pedal edema. HISTORY: The patient is an 87-year-old gentleman with a history of coronary artery disease status post coronary artery bypass grafting, status post NSTEMI, status post PCI/stenting, severe left ventricular systolic dysfunction, status post ICD insertion for primary prophylaxis, hypercholesterolemia, glucose intolerance, chronic kidney disease, history of hypertension, chronic vertigo with tinnitus, history of chronic obstructive pulmonary disease/interstitial lung disease, anxiety disorder. The patient was brought to the hospital with increasing pedal edema. He denies dyspnea either at rest or with exertion. No history of chest pain or discomfort. No history of palpitations, recent dizziness, or syncope. Intermittent nonproductive cough. The patient was seen by a visiting nursing and was advised that he should go to the emergency room. PAST MEDICAL HISTORY: As mentioned in the history of present illness. PAST SURGICAL HISTORY: Status post coronary artery bypass grafting, status post bilateral mastectomy. SOCIAL HISTORY: The patient is single. He is retired. Used to smoke and drink heavily. Stopped 20-25 years ago. Has 2 daughters who apparently are healthy. FAMILY HISTORY: Father in his 80s of unknown cause. Mother following an appendectomy apparently of sudden also in her 80s. He has 5 brothers and 1 sister, and according to the patient, they are healthy. ALLERGIES: AMOXICILLIN, AUGMENTIN, and states he is allergic to LIPITOR. MEDICATIONS: Prior to admission: 1. Simvastatin 20 mg p.o. daily. 2. Clopidogrel 75 mg p.o. daily. 3. Potassium chloride 20 mEq p.o. daily. 4. Aspirin 81 mg p.o. daily. 5. Furosemide 60 mg p.o. b.i.d. 6. Carvedilol 6.25 mg p.o. nightly. 7. Ofloxacin otic solution 5 drops b.i.d. 8. Meclizine 12.5 mg p.o. t.i.d. p.r.n. 9. Tylenol 650 mg p.o. p.r.n. 10. Albuterol via nebulizer q.i.d. p.r.n. 11. MiraLAX 17 g p.o. daily. 21. Spironolactone 25 mg p.o. daily. 22. Melatonin 3 mg p.o. daily. REVIEW OF SYSTEMS: HEENT: No history of headaches, diplopia, blurred vision reported. No history of epistaxis or hoarseness. History of chronic tinnitus and vertigo. History of bilateral deafness. Cardiovascular: See history of present illness. Respiratory: See history of present illness. Gastrointestinal: No history of nausea, vomiting, melena, or hematemesis reported. No history of abdominal pain or discomfort. Denies any change in bowel habits. Neurologic: No history of seizures or syncope. No history of focal weakness. Musculoskeletal: History of arthralgias. No history of myalgias. Endocrine: No history of polyuria or polydipsia. Denies having intolerance to cold or warm weather. Genitourinary: History of nocturia and occasional urgency. Hematologic/Lymphatic: No history of anemia, bleeding, or ecchymosis reported. PHYSICAL EXAMINATION: General: An 87-year-old alert gentleman who was in no acute distress. No pallor, cyanosis, clubbing, or jaundice. Vital Signs: Weight is not available, blood pressure 105/67 mmHg, pulse 70 beats per minute and regular, afebrile. Neck: Supple. Jugular venous distention at 90 degrees, 1-2 cm above the clavicle. . Carotids are 2+. Upstrokes are normal. No bruits are appreciated. Heart: No heaves or thrills. PMI is in the 5th intercostal space. S1, S2 are normal. A grade 1/6 ejection systolic murmur is heard at the 2nd right intercostal space. There is a faint grade 1/6 apical systolic murmur. No diastolic murmur or gallops are heard. Lungs: Decreased breath sounds at both bases. There are fine crepitations at the right base. Abdomen: Soft, nontender. No hepatosplenomegaly or palpable masses are felt. Extremities: Have 2+ bilateral pitting edema involving both lower extremities. There are well-healed surgical scars. Dorsalis pedis pulses and posterior tibial pulses are not palpable. LABORATORY DATA: ECG: Sinus rhythm with intra-atrial conduction abnormality, occasional ventricular premature beats that are single and unifocal. Left bundle branch block with associated ST and T-wave abnormalities. No previous ECG is available for comparison. CBC dated October 12, 2017: WBC count 5400, hemoglobin 11.3 g/dL, microcytic cell indices, platelet count 105,000. Chemistry March 12, 2017: Sodium 139, potassium 4, chloride 97, CO2 is 27, BUN 45, creatinine 2.2 mg/dL, total bilirubin is slightly elevated at 1.3. BNP is 52,709.81. X-ray chest one: Compared to August 01, 2017. Impression: Large heart, no acute chest pathology. IMPRESSION: 1. Congestive heart failure, [place] Heart Classification 2. 2. Severe left ventricular systolic dysfunction. 3. Coronary artery disease status post coronary artery bypass grafting. Angina pectoris currently stable. 4. Implantable cardioverter-defibrillator for primary prophylaxis. 5. Chronic kidney disease. 6. Interstitial lung disease/chronic obstructive pulmonary disease. 7. Chronic left bundle branch block. 8. Unifocal and single ventricular premature beats. 9. Poor compliance. 10. Chronic kidney disease. RECOMMENDATIONS: 1. Consider IV Lasix for the next 1-2 days. 2. Daily monitoring of weight. 3. Continue current medications. 4. modifications. 5. Dietary restrictions were, again, discussed. 6. Follow up basic metabolic profile. PROGNOSIS: Guarded. Thank you for your referral. RADHA ASIF M.D. [id number]
[2017-10-12 18:25] VITALS: BMI 29.1
[2017-10-12] MEDS ORDERED: PT OWN MED DRAWER 7, Y5N ONE (20:19)
[2017-10-13] MEDS: FUROSEMIDE 40 MG/4 ML INJECTABLE VIAL IVPUSH SCH ×2 (05:56→15:11)
[2017-10-13] MEDS: HEPARIN NA (PORCINE) 5,000 UNITS/ML 1ML VIAL SQ SCH (05:56)
[2017-10-13] MEDS: CARVEDILOL 3.125 MG TABLET (FP) PO SCH (06:01)
[2017-10-13] MEDS: CLOPIDOGREL BISULFATE 75 MG TABLET (FP) PO SCH (06:01)
[2017-10-13 08:10] LABS: BASO % 2.1 % (0-2.0); EOS % 9.9 % (0-4.5); HEMATOCRIT 31.4 % (35.4-49); HEMOGLOBIN 9.9 GM/dL (11.7-16.9); LYMPH % 17.8 % (8-40); MCH 25.3 pg (25.7-33.7); MCHC 31.6 g/dl (32.0-35.9); MEAN CELL VOLUME 79.9 fl (80-96); MEAN PLT VOLUME 9.5 fl (7.5-11.1); MONO % 11.2 % (3.8-10.2); PLATELET COUNT 69 K/MM3 (134-434); RBC 3.94 M/mm3 (4.00-5.60); RDW 23.1 % (11.9-15.9); WHITE BLOOD COUNT 3.5 K/mm3 (4.0-10.0)
--- NOTE | 2017-10-13 09:21 | PN ---
Teaching Attending Note Name of Resident: Shiloh aMntilla ATTENDING PHYSICIAN STATEMENT I saw and evaluated the patient. I reviewed the resident's note and discussed the case with the resident. I agree with the resident's findings and plan as documented. SUBJECTIVE:complaining of congestion "in my throat". no cough, fever,chills, N/v /C/D OBJECTIVE: Last Vital Signs Temp Pulse Resp BP Pulse Ox 98.2 F 71 20 114/61 96 10/13/17 05:53 10/13/17 05:53 10/13/17 05:53 10/13/17 05:53 10/12/17 21:00 Intake & Output 10/10/17 10/11/17 10/12/17 10/13/17 23:59 23:59 23:59 23:59 Intake Total 150 Output Total 500 Balance 150 -500 Weight 280 lb 185 lb 14.4 oz 185 lb 14.4 oz General NAD Lungs decreased breath sounds L base no wheezing or crackles Extremiteis 3+ pitting edema B/L LE ASSESSMENT AND PLAN: 87 year old man with a history of CAD s/p CABG & stents, chronic systolic heart failure s/p AICD, HTN, hyperlipidemia, CKD who presents to the ED with leg swelling. 1. Acute on chronic systolic heart failure- dry weight 182. currently 185. legs look about the same as yesterday. encouarged OOB to chair and ambulating. awaiting todays labs. pending kidney function may increase lasix as not responding at this time. cont spiractone and coreg, betablocker. cardio and pulm consulted. monitor electrolytes. daily weights, strict I&O. 2. Hypokalemia- awaiting labs 3. UTI- cont ceftriaxone day 2. f/u Cx 4. congestion- afebrile. nothing apprecaited on CXR yesterday or on exam. give mucinex 5. Normocytic anemia- acute drop in Hgb. at baseline from previous admission. check iron studies. no signs of bleeding. no indication for txn 6. CAD, history of [place]/CABG/stents- no signs of ACS. cardiac enzymes neg x2. Continue aspirin, Plavix, Coreg, Zocor 7. HTN- Continue Coreg, Lasix, Aldactone 8. Hyperlipidemia- Continue Zocor 9. Acute on chronic CKD- baseline 2. likely mediction induced vs pre-renal. cont lasix. monitor kidney function. 10. DVT ppx- hep sq
[2017-10-13 09:33] LABS: ANION GAP 8 (8-16); BLOOD UREA NITROGEN 41 mg/dL (7-18); CALCIUM 8.1 mg/dL (8.5-10.1); CHLORIDE 98 mmol/L (98-107); CO2 32 mmol/L (21-32); GLUCOSE,RANDOM 96 mg/dL (74-106); MAGNESIUM 2.6 mg/dL (1.8-2.4); POTASSIUM 3.6 mmol/L (3.5-5.1); SODIUM 138 mmol/L (136-145)
[2017-10-13] MEDS: CEFTRIAXONE 1 G/50 ML PREMIX 50 ML IVPB SCH (10:09)
[2017-10-13] MEDS: SPIRONOLACTONE 25 MG TABLET (FP) PO SCH (10:09)
[2017-10-13] MEDS: ASPIRIN COATED 81 MG TABLET.EC PO SCH (10:09)
[2017-10-13] MEDS: POLYETHYLENE GLYCOL 3350 119 GM BTL PO SCH (10:11)
--- NOTE | 2017-10-13 11:08 | PN ---
Progress Note (short form) - Note Progress Note: PULMONARY AWAKE/ALERT SUBJECTIVE IMPROVEMENT VSS ANICTERIC DIMINISHED B/L BS S1S2 BS+ EDEMA ANKLES TO MID THIGH LABS/MEDS/NOTES/IMAGES REVIEWED (1) CHF (congestive heart failure) Code(s): I50.9 - HEART FAILURE, UNSPECIFIED Qualifiers: Congestive heart failure type: unspecified congestive heart failure type Congestive heart failure chronicity: chronic Qualified Code(s): I50.9 - Heart failure, unspecified (2) Acute exacerbation of CHF (congestive heart failure) Code(s): I50.9 - HEART FAILURE, UNSPECIFIED (3) Anxiety Code(s): F41.9 - ANXIETY DISORDER, UNSPECIFIED (4) COPD (chronic obstructive pulmonary disease) Code(s): J44.9 - CHRONIC OBSTRUCTIVE PULMONARY DISEASE, UNSPECIFIED (5) Chronic mastoiditis, bilateral Code(s): H70.13 - CHRONIC MASTOIDITIS, BILATERAL (6) Compliance poor Code(s): Z91.19 - PATIENT'S NONCOMPLIANCE W OTH MEDICAL TREATMENT AND REGIMEN Assessment/Plan BETA-BLOCKERS/DIURETICS/CARDIO EVAL O2/BRONCHODILATORS/DAILY WEIGHT/NA/FLUID RESTRICT DIET URINE CULTURE PENDING Venkata BRINK MD Problem List - Problems (1) CHF (congestive heart failure) Code(s): I50.9 - HEART FAILURE, UNSPECIFIED Qualifiers: Congestive heart failure type: unspecified congestive heart failure type Congestive heart failure chronicity: chronic Qualified Code(s): I50.9 - Heart failure, unspecified (2) Acute exacerbation of CHF (congestive heart failure) Code(s): I50.9 - HEART FAILURE, UNSPECIFIED (3) Anxiety Code(s): F41.9 - ANXIETY DISORDER, UNSPECIFIED (4) COPD (chronic obstructive pulmonary disease) Code(s): J44.9 - CHRONIC OBSTRUCTIVE PULMONARY DISEASE, UNSPECIFIED (5) Chronic mastoiditis, bilateral Code(s): H70.13 - CHRONIC MASTOIDITIS, BILATERAL (6) Compliance poor Code(s): Z91.19 - PATIENT'S NONCOMPLIANCE W OTH MEDICAL TREATMENT AND REGIMEN
--- NOTE | 2017-10-13 12:23 | PN ---
Physical Exam: SUBJECTIVE: Patient seen and examined. He is complaining of sore throat. He denies fever, chills, muscle pain, SOB, chest pain. OBJECTIVE: Vital Signs Period Temp Pulse Resp BP Sys/العلي Pulse Ox Last 24 Hr 97.3 F-98.2 F 71-71 20-20 104-119/61-79 96-98 GENERAL: The patient is awake, alert, and fully oriented, in no acute distress. HEAD: Normal with no signs of trauma. EYES:extraocular movements intact, sclera anicteric ENT: oropharynx clear without exudates, moist mucous membranes. NECK: Trachea midline, full range of motion, supple. LUNGS: Breath sounds equal, crackles at bases bilaterally, no wheezes, no accessory muscle use. HEART: Regular rate and rhythm, S1, S2 without murmur, rub or gallop. ABDOMEN: Soft, nontender, nondistended, normoactive bowel sounds, no guarding, no rebound, no hepatosplenomegaly, no masses. EXTREMITIES: 2+ pulses, warm, well-perfused, 2+ edema b/l. NEUROLOGICAL: Normal speech, gait not observed. PSYCH: Normal mood, normal affect. SKIN: Warm, dry, normal turgor, no rashes. Laboratory Results - last 24 hr 10/13/17 10/13/17 06:00 06:00 WBC 3.5 L D RBC 3.94 L Hgb 9.9 L D Hct 31.4 L MCV 79.9 L MCH 25.3 L MCHC 31.6 L RDW 23.1 H Plt Count 69 L D MPV 9.5 Neutrophils % 59.0 Lymphocytes % 17.8 Monocytes % 11.2 H Eosinophils % 9.9 H Basophils % 2.1 H Sodium 138 Potassium 3.6 Chloride 98 Carbon Dioxide 32 Anion Gap 8 BUN 41 H Creatinine 2.0 H Random Glucose 96 Calcium 8.1 L Magnesium 2.6 H Active Medications Generic Name Dose Route Start Last Admin Trade Name Freq PRN Reason Stop Dose Admin Albuterol Sulfate 1 amp 10/11/17 20:37 Ventolin 0.083% Nebulizer Soln - NEB TIDR PRN SHORT OF BREATH/WHEEZING Aspirin 81 mg 10/12/17 10:00 10/13/17 10:09 Ecotrin - PO 81 mg DAILY JEREMÍAS Administration Carvedilol 3.125 mg 10/12/17 07:00 12/31/17 06:01 Coreg - PO 3.125 mg DAILY@0700 JEREMÍAS Administration Clopidogrel Bisulfate 75 mg 10/12/17 07:00 10/13/17 06:01 Plavix - PO 75 mg AM JEREMÍAS Administration Furosemide 40 mg 10/12/17 06:00 10/13/17 05:56 Lasix Injection - IVPUSH 40 mg BID@0600,1400 JEREMÍAS Administration Guaifenesin 600 mg 10/13/17 10:00 Mucinex - PO BID JEREMÍAS CEFTRIAXONE 1 G/50 ML PREMIX 50 mls @ 100 mls/hr 10/12/17 13:15 10/13/17 10: 09 Ceftriaxone 1 Gm-D5w Bag IVPB 100 mls/hr DAILY JEREMÍAS Administration Melatonin 3 mg 10/11/17 22:00 10/12/17 22:40 Melatonin PO 3 mg HS JEREMÍAS Administration Polyethylene Glycol 17 gm 10/12/17 10:00 10/13/17 10:11 Miralax (For Daily Use) - PO Not Given DAILY JEREMÍAS Spironolactone 25 mg 10/12/17 10:00 10/13/17 10:09 Aldactone - PO 25 mg DAILY JEREMÍAS Administration ASSESSMENT/PLAN: 87 year old man with a history of CAD s/p CABG & stents, chronic systolic heart failure s/p AICD, HTN, hyperlipidemia, CKD who presents to the hospital for leg swelling, SOB and amitted for CHF exacerbation. Acute on chronic systolic heart failure monitor I&O, daily weight, toay the same as yesterday 185 lbs cont spiractone and coreg, Lasix 40 BID continue Coreg f/u Cardiology recommendtions Pulmonary consulted thrombocytopenia: low PLT on dmission, held Heparin will monitor Hypokalemia K normalized UTI cont ceftriaxone day 2 f/u Urine cultures Normocytic anemia acute drop in Hgb f/u iron studies no signs of bleeding CAD no signs of ACS troponins neg Continue aspirin, Plavix, Coreg, Simvastatin HTN Continue Coreg, Lasix, Aldactone Hyperlipidemia- Continue Simvastatin Acute on chronic CKD monitor kidney function avoid nephrotoxins DVT ppx hep sq-held due to lowplatelets Visit type - Emergency Visit Emergency Visit: Yes ED Registration Date: 10/11/17 Care time: The patient presented to the Emergency Department on the above date and was hospitalized for further evaluation of their emergent condition. - New Patient This patient is new to me today: No - Critical Care Critical Care patient: No - Discharge Referral Referred to [facility] Med P.C.: No
[2017-10-13] MEDS: guaiFENesin 600 MG TABLET.ER (FP) PO SCH ×2 (15:11→23:13)
--- NOTE | 2017-10-13 15:31 | PN ---
Progress Note (short form) - Note Progress Note: 87 year old male admitted with CHF, known case of CAD/s/p CABG, s/p NSTEMI s/p PCI stenting severe LV systolic dysfunction, s/p ICD for primary prophylaxis. H/ o COPD/ILD, hypercholesterolemia. H/o CKD. Feels better, decreasing pedal edema, no chest pain or discomfort. Active Medications Generic Name Dose Route Start Last Admin Trade Name Freq PRN Reason Stop Dose Admin Albuterol Sulfate 1 amp 10/11/17 20:37 Ventolin 0.083% Nebulizer Soln - NEB TIDR PRN SHORT OF BREATH/WHEEZING Aspirin 81 mg 10/12/17 10:00 10/13/17 10:09 Ecotrin - PO 81 mg DAILY JEREMÍAS Administration Atorvastatin Calcium 10 mg 10/11/17 22:00 10/12/17 22:46 Lipitor - PO Not Given HS JEREMÍAS Carvedilol 3.125 mg 10/12/17 07:00 10/13/17 06:01 Coreg - PO 3.125 mg DAILY@0700 JEREMÍAS Administration Clopidogrel Bisulfate 75 mg 10/12/17 07:00 10/13/17 06:01 Plavix - PO 75 mg AM JEREMÍAS Administration Furosemide 40 mg 10/12/17 06:00 10/13/17 15:11 Lasix Injection - IVPUSH 40 mg BID@0600,1400 JEREMÍAS Administration Guaifenesin 600 mg 10/13/17 10:00 10/13/17 15:11 Mucinex - PO 600 mg BID JEREMÍAS Administration CEFTRIAXONE 1 G/50 ML PREMIX 50 mls @ 100 mls/hr 10/12/17 13:15 10/13/17 10: 09 Ceftriaxone 1 Gm-D5w Bag IVPB 100 mls/hr DAILY JEREMÍAS Administration Melatonin 3 mg 10/11/17 22:00 10/12/17 22:40 Melatonin PO 3 mg HS JEREMÍAS Administration Polyethylene Glycol 17 gm 10/12/17 10:00 10/13/17 10:11 Miralax (For Daily Use) - PO Not Given DAILY JEREMÍAS Spironolactone 25 mg 10/12/17 10:00 10/13/17 10:09 Aldactone - PO 25 mg DAILY JEREMÍAS Administration 87 year old male in in distress, no pallor, cyanosis, clubbing or jaundice. Last Vital Signs Temp Pulse Resp BP Pulse Ox 97.4 F L 75 20 105/55 96 10/13/17 13:21 10/13/17 13:21 10/13/17 13:21 10/13/17 13:21 10/12/17 21:00 Intake & Output 10/10/17 10/11/17 10/12/17 10/13/17 23:59 23:59 23:59 23:59 Intake Total 150 500 Output Total 500 Balance 150 0 Weight 280 lb 185 lb 14.4 oz 185 lb 14.4 oz NECK: Supple, +HJR, slight JVD, carotids 2+. HEART: PMI th ICS, S1 and S2 are normal. Grade I/ DUARTE 2nd right ICS. no diastolic murmur or gallops heard. LUNGS: Bibasilar creps. ABDOMEN: Soft, nontender, no organomegaly or palpable masses felt. EXTREMITIES: No calf tenderness. 2+ bilateral pitting edema. CBC, BMP 10/13/17 06:00 10/13/17 06:00 IMPRESSION: 1. CHF, NYHA class II. 2. Severe LV systolic dysfunction. 3. CAD, s/p CABG. 4. S/p NSTEMI, s/p PCI/stenting. 5. S/p ICD. 6. CKD. 7. ILD/ COPD 8. Chronic anemia. 9. Chroniv vertigo. 10. Poor compliance. RECOMMENDATIONS: 1. Current therapy. 2. Increase dose of coreg to 3.125mg. BID,provided BP is stable.
[2017-10-13] MEDS ORDERED: PT OWN MED DRAWER 7, Y5N ONE (23:12)
[2017-10-13] MEDS: MELATONIN 1 MG TABLET PO SCH (23:13)
[2017-10-14] MEDS: FUROSEMIDE 40 MG/4 ML INJECTABLE VIAL IVPUSH SCH ×3 (06:48→17:55)
[2017-10-14] MEDS: CARVEDILOL 3.125 MG TABLET (FP) PO SCH ×3 (06:49→21:54)
[2017-10-14] MEDS: CLOPIDOGREL BISULFATE 75 MG TABLET (FP) PO SCH (06:49)
[2017-10-14 07:41] LABS: BASO % 1.9 % (0-2.0); EOS % 7.8 % (0-4.5); HEMATOCRIT 33.4 % (35.4-49); HEMOGLOBIN 10.5 GM/dL (11.7-16.9); LYMPH % 18.5 % (8-40); MCH 25.2 pg (25.7-33.7); MCHC 31.5 g/dl (32.0-35.9); MEAN PLT VOLUME 9.9 fl (7.5-11.1); MONO % 11.2 % (3.8-10.2); NEUT % 60.6 % (42.8-82.8); PLATELET COUNT 78 K/MM3 (134-434); RBC 4.17 M/mm3 (4.00-5.60); RDW 23.7 % (11.9-15.9); WHITE BLOOD COUNT 4.7 K/mm3 (4.0-10.0)
[2017-10-14 07:47] LABS: ADD RBC MORPHOLOGY YES
[2017-10-14 08:13] LABS: ANION GAP 12 (8-16); BLOOD UREA NITROGEN 44 mg/dL (7-18); CALCIUM 8.5 mg/dL (8.5-10.1); CHLORIDE 97 mmol/L (98-107); CO2 29 mmol/L (21-32); GLUCOSE,RANDOM 81 mg/dL (74-106); POTASSIUM 3.7 mmol/L (3.5-5.1); SODIUM 138 mmol/L (136-145)
[2017-10-14 08:14] LABS: CREATININE 2.1 mg/dL (0.7-1.3); MAGNESIUM 2.5 mg/dL (1.8-2.4); PHOSPHOROUS 3.9 mg/dL (2.5-4.9)
[2017-10-14 08:49] LABS: ANISOCYTOSIS 2+; TARGET CELLS FEW
[2017-10-14 08:50] LABS: PLATELET ESTIMATE DECREASED
[2017-10-14] MEDS: SPIRONOLACTONE 25 MG TABLET (FP) PO SCH (09:07)
[2017-10-14] MEDS: guaiFENesin 600 MG TABLET.ER (FP) PO SCH ×2 (09:07→21:54)
[2017-10-14] MEDS: ASPIRIN COATED 81 MG TABLET.EC PO SCH (09:07)
[2017-10-14] MEDS: CEFTRIAXONE 1 G/50 ML PREMIX 50 ML IVPB SCH (09:08)
--- NOTE | 2017-10-14 09:55 | PN ---
Progress Note (short form) - Note Progress Note: has no complaints. states his legs do not bother him. states "throat congestion " resolved. denies CP, SOB, fever, chills, cough, N/V/C/D Current Medications Generic Name Dose Route Start Last Admin Trade Name Freq PRN Reason Stop Dose Admin Albuterol Sulfate 1 amp 10/11/17 20:37 Ventolin 0.083% Nebulizer Soln - NEB TIDR PRN SHORT OF BREATH/WHEEZING Aspirin 81 mg 10/12/17 10:00 10/14/17 09:07 Ecotrin - PO 81 mg DAILY JEREMÍAS Administration Carvedilol 3.125 mg 10/14/17 10:00 Coreg - PO BID JEREMÍAS Clopidogrel Bisulfate 75 mg 10/12/17 07:00 10/14/17 06:49 Plavix - PO 75 mg AM JEREMÍAS Administration Furosemide 60 mg 10/14/17 09:50 Lasix Injection - IVPUSH BID@0600,1400 JEREMÍAS Guaifenesin 600 mg 10/13/17 10:00 10/14/17 09:07 Mucinex - PO 600 mg BID JEREMÍAS Administration CEFTRIAXONE 1 G/50 ML PREMIX 50 mls @ 100 mls/hr 10/12/17 13:15 10/14/17 09: 08 Ceftriaxone 1 Gm-D5w Bag IVPB 100 mls/hr DAILY JEREMÍAS Administration Melatonin 3 mg 10/11/17 22:00 10/13/17 23:13 Melatonin PO 3 mg HS JEREMÍAS Administration Polyethylene Glycol 17 gm 10/12/17 10:00 10/13/17 10:11 Miralax (For Daily Use) - PO Not Given DAILY JEREMÍAS Spironolactone 25 mg 10/12/17 10:00 10/14/17 09:07 Aldactone - PO 25 mg DAILY JEREMÍAS Administration Last Vital Signs Temp Pulse Resp BP Pulse Ox 97.8 F 76 20 126/71 97 10/14/17 06:00 10/14/17 06:00 10/14/17 06:00 10/14/17 06:00 10/13/17 20:13 General NAD Lungs CTA B/L no wheezing/rales/rhonchi Extremiteis 3+ pitting edema B/L LE CBCD WBC 4.7 K/mm3 (4.0-10.0) D 10/14/17 06:00 RBC 4.17 M/mm3 (4.00-5.60) 10/14/17 06:00 Hgb 10.5 GM/dL (11.7-16.9) L 10/14/17 06:00 Hct 33.4 % (35.4-49) L 10/14/17 06:00 MCV 80.0 fl (80-96) 10/14/17 06:00 MCHC 31.5 g/dl (32.0-35.9) L 10/14/17 06:00 RDW 23.7 % (11.9-15.9) H 10/14/17 06:00 Plt Count 78 K/MM3 (134-434) L 10/14/17 06:00 MPV 9.9 fl (7.5-11.1) 10/14/17 06:00 CMP Sodium 138 mmol/L (136-145) 10/14/17 06:00 Potassium 3.7 mmol/L (3.5-5.1) 10/14/17 06:00 Chloride 97 mmol/L (98-107) L 10/14/17 06:00 Carbon Dioxide 29 mmol/L (21-32) 10/14/17 06:00 Anion Gap 12 (8-16) 10/14/17 06:00 BUN 44 mg/dL (7-18) H 10/14/17 06:00 Creatinine 2.1 mg/dL (0.7-1.3) H 10/14/17 06:00 Creat Clearance w eGFR 28.45 (>60) 10/12/17 06:14 Calcium 8.5 mg/dL (8.5-10.1) 10/14/17 06:00 Total Bilirubin 1.3 mg/dL (0.2-1.0) H 10/12/17 06:14 AST 19 U/L (15-37) 10/12/17 06:14 ALT 13 U/L (12-78) 10/12/17 06:14 Alkaline Phosphatase 115 U/L (45-117) 10/12/17 06:14 Total Protein 7.5 g/dl (6.4-8.2) 10/12/17 06:14 Albumin 3.9 g/dl (3.4-5.0) 10/12/17 06:14 Microbiology 10/12/17 14:48 Urine - Urine Clean Catch Urine Culture - Preliminary Group D Strep Or Entero Coccus ASSESSMENT AND PLAN: 87 year old man with a history of CAD s/p CABG & stents, chronic systolic heart failure s/p AICD, HTN, hyperlipidemia, CKD who presents to the ED with leg swelling. 1. Acute on chronic systolic heart failure- dry weight 182. no change in weight. legs remain edematous. increase lasix to 60mg BID. encouarged OOB to chair and ambulating. attempt to tirate up heart failure therapy as tolerated. cont spiractone and coreg. cardio and pulm consulted. monitor electrolytes. daily weights, strict I&O. 2. Hypokalemia- kcl po 3. UTI- cont ceftriaxone day 3. f/u Cx 4. congestion- afebrile. improved. cont mucinex 5. thrombocytopenia-hx of thrombocytopenia. no signs of bleeding 5. Normocytic anemia- acute drop in Hgb. at baseline from previous admission. Hgb improved. iron studies pending. no signs of bleeding. no indication for txn 6. CAD, history of [place]/CABG/stents- no signs of ACS. cardiac enzymes neg x2. Continue aspirin, Plavix, Coreg, Zocor 7. HTN- Continue Coreg, Lasix, Aldactone 8. Hyperlipidemia- Continue Zocor 9. Acute on chronic CKD- baseline 2. likely mediation induced vs pre-renal. cont lasix. monitor kidney function. 10. DVT ppx- d/c hep sq due to thrombocytopenia. place SURY Visit type - Emergency Visit Emergency Visit: Yes ED Registration Date: 10/11/17 Care time: The patient presented to the Emergency Department on the above date and was hospitalized for further evaluation of their emergent condition. - New Patient This patient is new to me today: No - Critical Care Critical Care patient: No - Discharge Referral Referred to [facility] No
[2017-10-14] MEDS ORDERED: POTASSIUM CHLORIDE ORAL LIQUID 20 MEQ/15 ML PO ONE (10:30)
--- NOTE | 2017-10-14 10:31 | PN ---
Progress Note (short form) - Note Progress Note: PULMONARY AWAKE/ALERT SUBJECTIVE IMPROVEMENT WGT 180 VSS ANICTERIC DIMINISHED B/L BS S1S2 BS+ EDEMA ANKLES TO MID THIGH IMPROVED LABS/MEDS/NOTES/IMAGES REVIEWED (1) CHF (congestive heart failure) Code(s): I50.9 - HEART FAILURE, UNSPECIFIED Qualifiers: Congestive heart failure type: unspecified congestive heart failure type Congestive heart failure chronicity: chronic Qualified Code(s): I50.9 - Heart failure, unspecified (2) Acute exacerbation of CHF (congestive heart failure) Code(s): I50.9 - HEART FAILURE, UNSPECIFIED (3) Anxiety Code(s): F41.9 - ANXIETY DISORDER, UNSPECIFIED (4) COPD (chronic obstructive pulmonary disease) Code(s): J44.9 - CHRONIC OBSTRUCTIVE PULMONARY DISEASE, UNSPECIFIED (5) Chronic mastoiditis, bilateral Code(s): 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.13 - CHRONIC MASTOIDITIS, BILATERAL (6) Compliance poor Code(s): Z91.19 - PATIENT'S NONCOMPLIANCE W OTH MEDICAL TREATMENT AND REGIMEN Assessment/Plan BETA-BLOCKERS/DIURETICS/CARDIO EVAL O2/BRONCHODILATORS/DAILY WEIGHT/NA/FLUID RESTRICT DIET URINE CULTURE GRP D STREP >100K COLONY CONTINUE ANTIBIOTICS Venkata BRINK MD Problem List - Problems (1) CHF (congestive heart failure) Code(s): I50.9 - HEART FAILURE, UNSPECIFIED Qualifiers: Congestive heart failure type: unspecified congestive heart failure type Congestive heart failure chronicity: chronic Qualified Code(s): I50.9 - Heart failure, unspecified (2) Acute exacerbation of CHF (congestive heart failure) Code(s): I50.9 - HEART FAILURE, UNSPECIFIED (3) Anxiety Code(s): F41.9 - ANXIETY DISORDER, UNSPECIFIED (4) COPD (chronic obstructive pulmonary disease) Code(s): J44.9 - CHRONIC OBSTRUCTIVE PULMONARY DISEASE, UNSPECIFIED (5) Chronic mastoiditis, bilateral Code(s): H70.13 - CHRONIC MASTOIDITIS, BILATERAL (6) Compliance poor Code(s): Z91.19 - PATIENT'S NONCOMPLIANCE W OTH MEDICAL TREATMENT AND REGIMEN
[2017-10-14] MEDS: POLYETHYLENE GLYCOL 3350 119 GM BTL PO SCH (11:07)
[2017-10-14] MEDS ORDERED: ALPRAZolam 0.25 MG TABLET PO ONE (15:00)
[2017-10-14] MEDS: MELATONIN 1 MG TABLET PO SCH (21:54)
[2017-10-15] MEDS ORDERED: ALPRAZolam 0.25 MG TABLET PO ONE (02:02)
[2017-10-15 06:06] LABS: SERUM IRON SATURATION 10 % (15-55); TOTAL IRON BINDING CAPACITY 372 ug/dL (250-450); UIBC 335 ug/dL (111-343)
--- NOTE | 2017-10-15 06:16 | HOSP ---
Subjective - Review of Symptoms HEENT: No: Head Aches, Visual Changes Pulmonary: No: Dyspnea, Cough Cardiovascular: No: Chest Pain, Palpitations, Light Headedness Gastrointestinal: No: Abdominal Pain Musculoskeletal: Yes: No Symptoms Neurological: No: Weakness, Numbness Physical Examination Vital Signs: Vital Signs Temperature 97.6 F 10/15/17 01:35 Pulse Rate 76 10/15/17 01:35 Respiratory Rate 18 10/15/17 01:35 Blood Pressure 130/80 10/15/17 01:35 O2 Sat by Pulse Oximetry (%) 96 10/14/17 20:36 Constitutional: Yes: No Distress, Anxious Eyes: Yes: WNL, Conjunctiva Clear, EOM Intact, PERRL HENT: Yes: WNL, Atraumatic, Normocephalic Neck: Yes: WNL, Supple, Trachea Midline Cardiovascular: Yes: WNL, Regular Rate and Rhythm, S1, S2 Respiratory: Yes: WNL, Regular, CTA Bilaterally. No: Cough, SOB Gastrointestinal: Yes: WNL, Normal Bowel Sounds, Soft Musculoskeletal: Yes: WNL Extremities: Yes: WNL. No: Cool, Cyanosis, Deformity Peripheral Pulses: Left Radial: 2+, Right Radial: 2+, Left Doralis Pedis: 2+, Right Dorsalis Pedis: 2+ Integumentary: Yes: WNL. No: Laceration Neurological: Yes: WNL, Alert, Oriented, Cran Nerves II-XII Intact. No: Dysarthria, Facial Droop, Lethargy, Loss of Sensation, Numbness, Paresthesia, Seizure, Tingling, Tremors, Weakness ...Motor Strength: WNL Psychiatric: Yes: WNL, Alert, Oriented Labs: CBC, BMP 10/14/17 06:00 10/14/17 06:00 Hospitalist Encounter Assessment: Called to bedside by nurse for unwitnessed mechanical fall from bed. Pt states that he was getting out of bed to get some water and felt like his legs gave out from underneath him. He denies any lightheadness, OLIVEIRA, confusion, peripheral weakness/numbness, change in vision or other neurologic symptoms prior to getting out of bed. Pt states he fell on his rear-end and denies any headstrike or other trauma to any other body part. After fall, pt denied any pain, weakness/numbness, new deformities, CP, SOB, dizziness, OLIVEIRA, lacerations or any other complaints. Per pt , he has never fallen before and ambulates with a walker at home. No falls since admission, however pt is documented fall risk. Of note, pt on dual antiplatelet tx for documented CAD. PE: Vital Signs Temperature 97.6 F 10/15/17 01:35 Pulse Rate 76 10/15/17 01:35 Respiratory Rate 18 10/15/17 01:35 Blood Pressure 130/80 10/15/17 01:35 O2 Sat by Pulse Oximetry (%) 96 10/14/17 20:36 Physical exam findings as noted above. In summary, no gross deformities, lacerations or evidence of trauma note, nor neurologic deficits noted. Recommendation: Post-fall protocol #1 Fall risk OOB w/ assistance Bed Alarm Non-con CT head Neuro Checks Q2H for 12 hours Repeat Vitals Visit type - Emergency Visit Emergency Visit: Yes ED Registration Date: 10/11/17 Care time: The patient presented to the Emergency Department on the above date and was hospitalized for further evaluation of their emergent condition. - New Patient This patient is new to me today: Yes Date on this admission: 10/15/17 - Critical Care Critical Care patient: No
[2017-10-15] MEDS: FUROSEMIDE 40 MG/4 ML INJECTABLE VIAL IVPUSH SCH ×2 (06:38→14:19)
[2017-10-15] MEDS: CLOPIDOGREL BISULFATE 75 MG TABLET (FP) PO SCH (07:45)
--- NOTE | 2017-10-15 09:11 | PN ---
Physical Exam: SUBJECTIVE: Overnight pt fell by losing his footing without any strike to head. Pt was sent to Head CT noncontrast due to unwitnessed fall which was negative. Otherwise no acute events overnight. No complaints today. Pt reports his breathing has always been fine and his lower extremity edema is getting better. Pt also reports a slightly distended abdomen. Denies fever/chills, SOB, CP/ discomfort, and abdominal pain OBJECTIVE: Vital Signs Period Temp Pulse Resp BP Sys/العلي Pulse Ox Last 24 Hr 97.3 F-97.9 F 74-81 18-20 122-148/66-83 96 GENERAL: NAD, awake, alert, and fully oriented HEENT: NC/AT, sclera anicteric, EOMI, SIMON, No JVD appreciated, no bruits upon auscultation LUNGS: Bibasilar rales noted, no wheezes, or rhonchi. No accessory muscle use. On 4LNC HEART: RRR, S1,split S2 without murmur appreciated ABDOMEN: Soft, nontender, distended, distant normoactive bowel sounds, no guarding, no hepatomegaly, + hepatojugular reflux EXTREMITIES: 2+ DP pulses, warm, well-perfused, 2+ edema noted to upper lower extremities b/l NEUROLOGICAL: Cranial nerves II through XII grossly intact. Normal speech, gait not observed. PSYCH: Normal mood, normal affect. SKIN: Warm, dry, no rashes or lesions noted Laboratory Results - last 24 hr 10/14/17 06:00 Iron 37 L TIBC 372 Iron Saturation 10 L Active Medications Generic Name Dose Route Start Last Admin Trade Name Yovaniq PRN Reason Stop Dose Admin Albuterol Sulfate 1 amp 10/11/17 20:37 10/15/17 06:52 Ventolin 0.083% Nebulizer Soln - NEB 1 amp TIDR PRN Administration SHORT OF BREATH/WHEEZING Aspirin 81 mg 10/12/17 10:00 10/14/17 09:07 Ecotrin - PO 81 mg DAILY JEREMÍAS Administration Carvedilol 3.125 mg 10/14/17 10:00 10/14/17 21:54 Coreg - PO 3.125 mg BID JEREMÍAS Administration Clopidogrel Bisulfate 75 mg 10/12/17 07:00 10/14/17 06:49 Plavix - PO 75 mg AM JEREMÍAS Administration Furosemide 60 mg 10/14/17 09:50 10/15/17 06:38 Lasix Injection - IVPUSH 60 mg BIDLASIX JEREMÍAS Administration Guaifenesin 600 mg 10/13/17 10:00 10/14/17 21:54 Mucinex - PO 600 mg BID JEREMÍAS Administration CEFTRIAXONE 1 G/50 ML PREMIX 50 mls @ 100 mls/hr 10/12/17 13:15 10/14/17 09: 08 Ceftriaxone 1 Gm-D5w Bag IVPB 100 mls/hr DAILY JEREMÍAS Administration Melatonin 3 mg 10/11/17 22:00 10/14/17 21:54 Melatonin PO 3 mg HS JEREMÍAS Administration Polyethylene Glycol 17 gm 10/12/17 10:00 10/14/17 11:07 Miralax (For Daily Use) - PO Not Given DAILY JEREMÍAS Spironolactone 25 mg 10/12/17 10:00 10/14/17 09:07 Aldactone - PO 25 mg DAILY JEREMÍAS Administration ASSESSMENT/PLAN: 1) Acute on chronic systolic CHF exacerbation --NYHA Class II --Lasix 60mg IVP BID continued --Will give additional one-time dose Lasix 40mg IVP (discussed with Dr. Campuzano) --Most recent echo 05/2017: LV systolic function severely decreased with LV dilation and global hypokinesis; LA enlargement; Mod MR; mild --Strict I&O's emphasized with voiding in urinal --Daily weights --Continue Aldactone 25mg qDaily PO --Increased Coreg to 6.25mg BID; per cardiology can titrate to 12.5mg BID as tolerated --Cardiology consulted --Added Zeroxlyn --If pt is unresponsive consider dobutamine gtt with lasix 2) Abdominal distention --Highly suspicious for anasarca --Abdominal US ordered --Revealed moderate ascites noted --See above for diuretic use --Will order LFTs for tomorrow to determine congestive hepatopathy 2/2 to CHF exacerbation 3) UTI --Urine cultures reviewed with sensitivities --Can descalate ABX to amoxicillin 500mg BID due to susceptibility of enterococcus 4) CAD --Continue Plavix 75mg qDaily --Continue Lipitor 10mg HS --ASA 81mg qdaily 5) Pre-diabetes --Diet controlled --diabetic/sodium controlled diet --Last A1c 6.5 6) CKD --Most likely 2/2 cardiorenal syndrome --Cr at baseline (2.1) --Avoid nephrotoxic agents --Trend BMP FEN Fluids: Avoid due to hypervolemic state Electrolyte Abnormalities: None currently Nutrition: Sodium controlled, diabetic diet PPX DVT - mod risk - SCDs; heparin stopped due to thrombocytopenia Dispo: Transfer to tele floor Case discussed with Dr. Sonny Joyner, DO - Internal Medicine PGY-1 Visit type - Emergency Visit Emergency Visit: No - New Patient This patient is new to me today: No - Critical Care Critical Care patient: No
[2017-10-15 09:34] LABS: INR 1.5 (0.82-1.09); PROTHROMBIN TIME (PATIENT) 16.9 SEC (9.98-11.88)
[2017-10-15 09:37] LABS: ACTIVATED PTT 28.3 SECONDS (26.9-34.4)
[2017-10-15] MEDS: CARVEDILOL 3.125 MG TABLET (FP) PO SCH (09:48)
[2017-10-15] MEDS: CEFTRIAXONE 1 G/50 ML PREMIX 50 ML IVPB SCH (09:48)
[2017-10-15] MEDS: guaiFENesin 600 MG TABLET.ER (FP) PO SCH ×2 (09:48→21:08)
[2017-10-15] MEDS: SPIRONOLACTONE 25 MG TABLET (FP) PO SCH (09:48)
[2017-10-15] MEDS: ASPIRIN COATED 81 MG TABLET.EC PO SCH (09:49)
[2017-10-15] MEDS: POLYETHYLENE GLYCOL 3350 119 GM BTL PO SCH (09:50)
[2017-10-15 09:55] LABS: ANION GAP 9 (8-16); BLOOD UREA NITROGEN 45 mg/dL (7-18); CALCIUM 8.7 mg/dL (8.5-10.1); CHLORIDE 96 mmol/L (98-107); CO2 29 mmol/L (21-32); CREATININE 2.1 mg/dL (0.7-1.3); GLUCOSE,RANDOM 131 mg/dL (74-106); MAGNESIUM 2.6 mg/dL (1.8-2.4); POTASSIUM 4.1 mmol/L (3.5-5.1); SODIUM 134 mmol/L (136-145)
--- NOTE | 2017-10-15 10:07 | PN ---
Progress Note (short form) - Note Progress Note: 87 year old male admitted with CHF, known case of CAD/s/p CABG, s/p NSTEMI s/p PCI stenting severe LV systolic dysfunction, s/p ICD for primary prophylaxis. H/ o COPD/ILD, hypercholesterolemia. H/o CKD. Patient denies having SOB, PND or orthopnea, no chest pain or discomfort. No weight change. Active Medications Albuterol Sulfate (Ventolin 0.083% Nebulizer Soln -) 1 amp NEB TIDR PRN PRN Reason: SHORT OF BREATH/WHEEZING Last Admin: 10/15/17 06:52 Dose: 1 amp Aspirin (Ecotrin -) 81 mg PO DAILY [facility] Last Admin: 10/15/17 09:49 Dose: 81 mg Carvedilol (Coreg -) 3.125 mg PO BID [facility] Last Admin: 10/15/17 09:48 Dose: 3.125 mg Clopidogrel Bisulfate (Plavix -) 75 mg PO AM [facility] Last Admin: 10/15/17 07:45 Dose: 75 mg Furosemide (Lasix Injection -) 60 mg IVPUSH BIDLASIX [facility] Last Admin: 10/15/17 06:38 Dose: 60 mg Guaifenesin (Mucinex -) 600 mg PO BID [facility] Last Admin: 10/15/17 09:48 Dose: 600 mg CEFTRIAXONE 1 G/50 ML PREMIX (Ceftriaxone 1 Gm-D5w Bag) 50 mls @ 100 mls/hr IVPB DAILY [facility] Last Admin: 10/15/17 09:48 Dose: 100 mls/hr Melatonin (Melatonin) 3 mg PO HS [facility] Last Admin: 10/14/17 21:54 Dose: 3 mg Polyethylene Glycol (Miralax (For Daily Use) -) 17 gm PO DAILY [facility] Last Admin: 10/15/17 09:50 Dose: 17 gm Spironolactone (Aldactone -) 25 mg PO DAILY [facility] Last Admin: 10/15/17 09:48 Dose: 25 mg 87 year old male in in distress, no pallor, cyanosis, clubbing or jaundice. Last Vital Signs Temp Pulse Resp BP Pulse Ox 97.4 F L 72 18 131/74 96 10/15/17 09:37 10/15/17 09:37 10/15/17 09:37 10/15/17 09:37 10/14/17 20:36 Intake & Output 10/12/17 10/13/17 10/14/17 10/15/17 23:59 23:59 23:59 23:59 Intake Total 150 1400 590 120 Output Total 500 1700 Balance 150 900 -1110 120 Weight 185 lb 14.4 oz 185 lb 14.4 oz 185 lb 12.8 oz NECK: Supple, +HJR, 1-2cm JVD at 30 degrees, +ve HJR. Pulsatile neck veins, carotids 2+. HEART: PMI th ICS, S1 and S2 are normal. Grade I/ DUARTE 2nd right ICS.and grade I/ systolic murmur along the LSB no diastolic murmur or gallops heard. LUNGS: Bibasilar creps. ABDOMEN: Soft, nontender, distended, no hepatosplenomegy felt. Dullness on percussion involvindg both flanks EXTREMITIES: No calf tenderness. 2+ bilateral pitting edema. CBC, BMP 10/14/17 06:00 10/15/17 08:40 IMPRESSION: 1. CHF, NYHA class II. 2. Severe LV systolic dysfunction. 3. Suspect Ascites 4. S/p NSTEMI, s/p PCI/stenting. 5. S/p ICD. 6. CKD. 7. ILD/ COPD 8. Chronic anemia. 9. CAD/s/p CABG 10. Chronic vertigo. 11. Tricuspid regurgitation( on physical exam) RECOMMENDATIONS: 1. Abdominal ultra sound. 2. Coreg can be increased cautiously to 12.5mg BID and to tolerance. 3. If there no response to current therapy, may need to consider renal dose dobutamine).
--- NOTE | 2017-10-15 12:23 | PN ---
Progress Note (short form) - Note Progress Note: Denies CP or SOB. Some dry cough. No acute events overnight. Intake & Output 10/12/17 10/13/17 10/14/17 10/15/17 23:59 23:59 23:59 23:59 Intake Total 150 1400 590 240 Output Total 500 1700 Balance 150 900 -1110 240 Weight 185 lb 14.4 oz 185 lb 14.4 oz 185 lb 12.8 oz Last Vital Signs Temp Pulse Resp BP Pulse Ox 97.3 F L 77 18 128/74 100 10/15/17 11:45 10/15/17 11:45 10/15/17 11:45 10/15/17 11:45 10/15/17 09:00 Active Medications Albuterol Sulfate (Ventolin 0.083% Nebulizer Soln -) 1 amp NEB TIDR PRN PRN Reason: SHORT OF BREATH/WHEEZING Last Admin: 10/15/17 06:52 Dose: 1 amp Aspirin (Ecotrin -) 81 mg PO DAILY [facility] Last Admin: 10/15/17 09:49 Dose: 81 mg Carvedilol (Coreg -) 3.125 mg PO BID [facility] Last Admin: 10/15/17 09:48 Dose: 3.125 mg Clopidogrel Bisulfate (Plavix -) 75 mg PO AM [facility] Last Admin: 10/15/17 07:45 Dose: 75 mg Furosemide (Lasix Injection -) 60 mg IVPUSH BIDLASIX [facility] Last Admin: 10/15/17 06:38 Dose: 60 mg Guaifenesin (Mucinex -) 600 mg PO BID [facility] Last Admin: 10/15/17 09:48 Dose: 600 mg CEFTRIAXONE 1 G/50 ML PREMIX (Ceftriaxone 1 Gm-D5w Bag) 50 mls @ 100 mls/hr IVPB DAILY [facility] Last Admin: 10/15/17 09:48 Dose: 100 mls/hr Melatonin (Melatonin) 3 mg PO HS [facility] Last Admin: 10/14/17 21:54 Dose: 3 mg Polyethylene Glycol (Miralax (For Daily Use) -) 17 gm PO DAILY [facility] Last Admin: 10/15/17 09:50 Dose: 17 gm Spironolactone (Aldactone -) 25 mg PO DAILY [facility] Last Admin: 10/15/17 09:48 Dose: 25 mg GENERAL: The patient is awake, alert, NAD HEAD: Normal with no signs of trauma. EYES: PERRL, extraocular movements intact, sclera anicteric, conjunctiva clear. No ptosis. ENT: Ears normal, nares patent, oropharynx clear without exudates, moist mucous membranes. NECK: Trachea midline, full range of motion, supple. LUNGS: Diminished at the bases, few scattered rhonchi HEART: Regular rate and rhythm, S1, S2 without murmur, rub or gallop. ABDOMEN: Soft, nontender, nondistended, normoactive bowel sounds, no guarding, no rebound, no hepatosplenomegaly, no masses. EXTREMITIES: Less edema. NEUROLOGICAL: Non-focal SKIN: Warm, dry, normal turgor, no rashes or lesions noted Laboratory Results - last 24 hr 10/14/17 10/15/17 10/15/17 06:00 08:40 08:40 PT with INR 16.90 H INR 1.50 H PTT (Actin FS) 28.3 Sodium 134 L Potassium 4.1 Chloride 96 L Carbon Dioxide 29 Anion Gap 9 BUN 45 H Creatinine 2.1 H Random Glucose 131 H D Calcium 8.7 Magnesium 2.6 H Iron 37 L TIBC 372 Iron Saturation 10 L (1) CHF (congestive heart failure) Code(s): I50.9 - HEART FAILURE, UNSPECIFIED Qualifiers: Congestive heart failure type: unspecified congestive heart failure type Congestive heart failure chronicity: chronic Qualified Code(s): I50.9 - Heart failure, unspecified (2) Acute exacerbation of CHF (congestive heart failure) Code(s): I50.9 - HEART FAILURE, UNSPECIFIED (3) Anxiety Code(s): F41.9 - ANXIETY DISORDER, UNSPECIFIED (4) COPD (chronic obstructive pulmonary disease) Code(s): J44.9 - CHRONIC OBSTRUCTIVE PULMONARY DISEASE, UNSPECIFIED (5) Chronic mastoiditis, bilateral Code(s): H70.13 - CHRONIC MASTOIDITIS, BILATERAL (6) Compliance poor Code(s): Z91.19 - PATIENT'S NONCOMPLIANCE W OTH MEDICAL TREATMENT AND REGIMEN Assessment/Plan BETA-BLOCKERS DIURETICS O2 BRONCHODILATORS DAILY WEIGHT ABX Dr Julio
[2017-10-15] MEDS ORDERED: FUROSEMIDE 40 MG/4 ML INJECTABLE VIAL IVPUSH ONE (17:00)
[2017-10-15] MEDS ORDERED: ALBUTEROL SO4 0.083% IH SOL 2.5 MG/3 ML VIAL.NEB. NEB PRN (17:11)
--- NOTE | 2017-10-15 17:11 | PN ---
Teaching Attending Note Name of Resident: Aleksandr Joyner ATTENDING PHYSICIAN STATEMENT Time of evaluation: 11:15 AM I saw and evaluated the patient. I reviewed the resident's note and discussed the case with the resident. I agree with the resident's findings and plan as documented. SUBJECTIVE: Patient seen and examined. REports swelling with some improvement, looks dyspneic on exam but denies any chest pain, palpitations, or dyspnea. Reports fall yesterday, denies any head trauma. OBJECTIVE: Vital Signs Period Temp Pulse Resp BP Sys/اللعي Pulse Ox Last 24 Hr 97.3 F-98.0 F 72-81 18-20 122-148/66-83 96-100 Intake & Output 10/12/17 10/13/17 10/14/17 10/15/17 23:59 23:59 23:59 23:59 Intake Total 150 1400 590 440 Output Total 500 1700 350 Balance 150 900 -1110 90 Weight 185 lb 14.4 oz 185 lb 14.4 oz 185 lb 12.8 oz General: sitting at the edge of bed, mild use of acessory muscles of breathing CVS:S1S2 regular Chest: decreased breath sounds at bases, positive air entry, occasional rales Abdomen: soft, distended, non tender throughout Extremities: bilateral pitting pedal edema till knee Home Medication List Medication Instructions Recorded Confirmed Type Simvastatin 20 mg PO HS 06/10/17 10/11/17 History Potassium Chloride 20 meq PO DAILY 06/27/17 10/11/17 History Carvedilol 6.25 mg PO HS 08/01/17 10/11/17 History Meclizine HCl [Antivert -] 12.5 mg PO TID PRN 08/01/17 10/11/17 History Melatonin 3 mg PO DAILY 09/23/17 10/11/17 History Active Medications Generic Name Dose Route Start Last Admin Trade Name Freq PRN Reason Stop Dose Admin Albuterol Sulfate 1 amp 10/11/17 20:37 10/15/17 06:52 Ventolin 0.083% Nebulizer Soln - NEB 1 amp TIDR PRN Administration SHORT OF BREATH/WHEEZING Aspirin 81 mg 10/12/17 10:00 10/15/17 09:49 Ecotrin - PO 81 mg DAILY JEREMÍAS Administration Carvedilol 6.25 mg 10/15/17 22:00 Coreg - PO BID JEREMÍAS Clopidogrel Bisulfate 75 mg 10/12/17 07:00 10/15/17 07:45 Plavix - PO 75 mg AM JEREMÍAS Administration Furosemide 60 mg 10/14/17 09:50 10/15/17 14:19 Lasix Injection - IVPUSH 60 mg BIDLASIX JEREMÍAS Administration Guaifenesin 600 mg 10/13/17 10:00 10/15/17 09:48 Mucinex - PO 600 mg BID JEREMÍAS Administration CEFTRIAXONE 1 G/50 ML PREMIX 50 mls @ 100 mls/hr 10/12/17 13:15 10/15/17 09: 48 Ceftriaxone 1 Gm-D5w Bag IVPB 100 mls/hr DAILY JEREMÍAS Administration Melatonin 3 mg 10/11/17 22:00 10/14/17 21:54 Melatonin PO 3 mg HS JEREMÍAS Administration Metolazone 2.5 mg 10/15/17 16:30 Zaroxolyn - PO DAILY@0530 JEREMÍAS Polyethylene Glycol 17 gm 10/12/17 10:00 10/15/17 09:50 Miralax (For Daily Use) - PO 17 gm DAILY JEREMÍAS Administration Spironolactone 25 mg 10/12/17 10:00 10/15/17 09:48 Aldactone - PO 25 mg DAILY JEREMÍAS Administration Laboratory Results - last 24 hr 10/14/17 10/15/17 10/15/17 06:00 08:40 08:40 PT with INR 16.90 H INR 1.50 H PTT (Actin FS) 28.3 Sodium 134 L Potassium 4.1 Chloride 96 L Carbon Dioxide 29 Anion Gap 9 BUN 45 H Creatinine 2.1 H Random Glucose 131 H D Calcium 8.7 Magnesium 2.6 H Iron 37 L TIBC 372 Iron Saturation 10 L Microbiology 10/12/17 14:48 Urine - Urine Clean Catch Urine Culture - Final Enterococcus Faecalis 2D echo pending Assessment and Plan: 87 year old man with a history of CAD s/p CABG & stents, chronic systolic heart failure s/p AICD, HTN, hyperlipidemia, CKD who presents to the ED with leg swelling. -Acute on chronic systolic heart failure exacerbation with anasarca -Severe ischemic cardiomyopathy -Acute on Chronic CKD suspect from poor perfusion and CHF -Ascitis, suspect from volume overload -Lower uncomplicated E. faecalis UTI -Hypokalemia -Thrombocytopenia -Normocytic anemia -CAD s/p [place]/CABG/Stents -HTN -Hyperlipiemia Plan Discussed with Dr. Campuzano, additional lasix 40 mg IV x 1. Metolazone 2.5 mg daily. Increase coreg to 6.25 mg BID, titrate up as tolerated. Abdominal ultrasound with ascitis. Still with significant anasarca and ascitis, poor response to lasix. Discussed with Dr. Campuzano, trial with additional lasix and metolazone as above, if poor response, will need dobutamine drip with lasix and likely monitoring in ICU. Urine cultures noted, change to amoxicillin for a total 7 day course. Continue asa/plavix/zocor/aldactone. Monitor renal function closely. SCDs for DVTPPX prognosis guarded given concerning cardiomyopathy with poor response to diuresis Transfer to telemetry for close monitoring. Plan discussed with patient in detail, all questions answered.
[2017-10-15] MEDS: METOLAZONE 2.5 MG TABLET (FP) PO SCH (17:23)
[2017-10-15] MEDS ORDERED: PT OWN MED DRAWER 7, Y5N ONE (20:08)
[2017-10-15] MEDS: CARVEDILOL 6.25 MG TABLET (FP) PO SCH (21:08)
[2017-10-15] MEDS: MELATONIN 1 MG TABLET PO SCH (21:08)
[2017-10-16] MEDS: METOLAZONE 2.5 MG TABLET (FP) PO SCH (05:23)
[2017-10-16] MEDS: FUROSEMIDE 40 MG/4 ML INJECTABLE VIAL IVPUSH SCH ×2 (06:22→14:18)
[2017-10-16] MEDS: CLOPIDOGREL BISULFATE 75 MG TABLET (FP) PO SCH (06:22)
[2017-10-16 07:28] LABS: HEMATOCRIT 34.2 % (35.4-49); HEMOGLOBIN 10.7 GM/dL (11.7-16.9); MCH 25.2 pg (25.7-33.7); MCHC 31.4 g/dl (32.0-35.9); MEAN CELL VOLUME 80.3 fl (80-96); MEAN PLT VOLUME 9.7 fl (7.5-11.1); PLATELET COUNT 83 K/MM3 (134-434); RBC 4.26 M/mm3 (4.00-5.60); RDW 23.9 % (11.9-15.9); WHITE BLOOD COUNT 5.4 K/mm3 (4.0-10.0)
[2017-10-16 07:38] LABS: ALBUMIN 3.8 g/dl (3.4-5.0); ANION GAP 11 (8-16); CALCIUM 8.9 mg/dL (8.5-10.1); CHLORIDE 97 mmol/L (98-107); CO2 31 mmol/L (21-32); GLUCOSE,RANDOM 85 mg/dL (74-106); MAGNESIUM 2.6 mg/dL (1.8-2.4); PHOSPHOROUS 4.6 mg/dL (2.5-4.9); POTASSIUM 3.8 mmol/L (3.5-5.1); SGPT/ALT 13 U/L (12-78); SODIUM 139 mmol/L (136-145)
[2017-10-16 07:48] LABS: ALK PHOS 130 U/L (45-117); BILIRUBIN,TOTAL 0.9 mg/dL (0.2-1.0); BLOOD UREA NITROGEN 45 mg/dL (7-18); SGOT/AST 20 U/L (15-37); TOT PROT 7.3 g/dl (6.4-8.2)
[2017-10-16] MEDS ORDERED: PT OWN MED DRAWER 7, Y5N ONE (09:22)
[2017-10-16] MEDS: SPIRONOLACTONE 25 MG TABLET (FP) PO SCH (09:48)
[2017-10-16] MEDS: CARVEDILOL 6.25 MG TABLET (FP) PO SCH ×2 (09:49→23:10)
[2017-10-16] MEDS: ASPIRIN COATED 81 MG TABLET.EC PO SCH (09:49)
[2017-10-16] MEDS: guaiFENesin 600 MG TABLET.ER (FP) PO SCH ×2 (09:49→23:10)
[2017-10-16] MEDS: AMOXICILLIN 500 MG CAPSULE (FP) PO SCH ×2 (09:58→23:10)
[2017-10-16] MEDS: POLYETHYLENE GLYCOL 3350 119 GM BTL PO SCH (09:59)
[2017-10-16] MEDS ORDERED: CEFTRIAXONE 1 G/50 ML PREMIX 50 ML IVPB SCH (10:00)
--- NOTE | 2017-10-16 10:59 | PN ---
Progress Note (short form) - Note Progress Note: 87 year old male admitted with CHF, known case of CAD/s/p CABG, s/p NSTEMI s/p PCI stenting severe LV systolic dysfunction, s/p ICD for primary prophylaxis. H/ o COPD/ILD, hypercholesterolemia. H/o CKD. Patient slept in a chair last night. Denies having dyspnea at rest, no PND reported. Continues to have pedal edema extending to his thighs. Abdominal ultrasound confirms the presence of moderate ascites. Active Medications Generic Name Dose Route Start Last Admin Trade Name Freq PRN Reason Stop Dose Admin Albuterol Sulfate 1 amp 10/15/17 17:11 Ventolin 0.083% Nebulizer Soln - NEB Q8H PRN SHORT OF BREATH/WHEEZING Amoxicillin 500 mg 10/16/17 10:00 10/16/17 09:58 Amoxicillin - PO 500 mg BID JEREMÍAS Administration Aspirin 81 mg 10/16/17 10:00 10/16/17 09:49 Ecotrin - PO 81 mg DAILY JEREMÍAS Administration Carvedilol 6.25 mg 10/15/17 22:00 10/16/17 09:49 Coreg - PO 6.25 mg BID JEREMÍAS Administration Clopidogrel Bisulfate 75 mg 10/16/17 07:00 10/16/17 06:22 Plavix - PO 75 mg AM JEREMÍAS Administration Furosemide 60 mg 10/16/17 06:00 10/16/17 06:22 Lasix Injection - IVPUSH 60 mg BIDLASIX JEREMÍAS Administration Guaifenesin 600 mg 10/15/17 22:00 10/16/17 09:49 Mucinex - PO 600 mg BID JEREMÍAS Administration Melatonin 3 mg 10/15/17 22:00 10/15/17 21:08 Melatonin PO 3 mg HS JEREMÍAS Administration Metolazone 2.5 mg 10/15/17 16:30 10/16/17 05:23 Zaroxolyn - PO 2.5 mg DAILY@0530 JEREMÍAS Administration Polyethylene Glycol 17 gm 10/16/17 10:00 10/16/17 09:59 Miralax (For Daily Use) - PO 17 gm DAILY JEREMÍAS Administration Spironolactone 25 mg 10/16/17 10:00 10/16/17 09:48 Aldactone - PO 25 mg DAILY JEREMÍAS Administration 87 year old male in in distress, no pallor, cyanosis, clubbing or jaundice. Last Vital Signs Temp Pulse Resp BP Pulse Ox 98.2 F 78 16 120/68 98 10/16/17 08:00 10/16/17 08:00 10/16/17 08:00 10/16/17 08:00 10/15/17 20:35 Intake & Output 10/13/17 10/14/17 10/15/17 10/16/17 23:59 23:59 23:59 23:59 Intake Total 1400 590 560 Output Total 500 6491 422 6137 Balance 900 -1110 -90 -1320 Weight 185 lb 14.4 oz 185 lb 12.8 oz 185 lb 9.6 oz NECK: Supple, +HJR, 1-2cm JVD at 30 degrees, +ve HJR. Pulsatile neck veins, carotids 2+. HEART: PMI th ICS, S1 and S2 are normal. Grade I/ DUARTE 2nd right ICS.and grade I/ systolic murmur along the LSB no diastolic murmur or gallops heard. LUNGS: Bibasilar creps. ABDOMEN: Soft, nontender, distended, no hepatosplenomegy felt. Dullness on percussion involving both flanks EXTREMITIES: No calf tenderness. 3+ bilateral pitting edema. CBC, BMP 10/16/17 06:30 10/16/17 06:30 IMPRESSION: 1. CHF, NYHA class III. 2. Severe LV systolic dysfunction. 3. Moderate Ascites. 4. S/p NSTEMI, s/p PCI/stenting. 5. S/p ICD. 6. CKD. 7. ILD/ COPD 8. Chronic anemia. 9. CAD/s/p CABG 10. Chronic vertigo. 11. Tricuspid regurgitation (on physical exam) RECOMMENDATIONS: 1. Renal dose of Dobutamine. 2. If there is poor response to Lasix consider switching to Demadex. 3. Coreg can be increased cautiously to 12.5mg BID and to tolerance. 4. Close follow up of BMP. 5. Aldactone could be increased to 25 mg BID under close monitoring of renal function and electrolytes.
[2017-10-16] MEDS: DOBUTAMINE 250 MG/D5W - 250,000 MCG/250 ML INFUS.BAG IV SCH ×2 (11:33→23:10)
[2017-10-16 11:58] LABS: N-TERMINAL BNP 48958.41 pg/ml (5-450)
--- NOTE | 2017-10-16 12:44 | PN ---
Progress Note, Physician History of Present Illness: pulmonary alert,oob-chair,-resp distress. - Current Medication List Current Medications: Active Medications Albuterol Sulfate (Ventolin 0.083% Nebulizer Soln -) 1 amp NEB Q8H PRN PRN Reason: SHORT OF BREATH/WHEEZING Amoxicillin (Amoxicillin -) 500 mg PO BID [facility] Last Admin: 10/16/17 09:58 Dose: 500 mg Aspirin (Ecotrin -) 81 mg PO DAILY [facility] Last Admin: 10/16/17 09:49 Dose: 81 mg Carvedilol (Coreg -) 6.25 mg PO BID [facility] Last Admin: 10/16/17 09:49 Dose: 6.25 mg Clopidogrel Bisulfate (Plavix -) 75 mg PO AM [facility] Last Admin: 10/16/17 06:22 Dose: 75 mg Furosemide (Lasix Injection -) 60 mg IVPUSH BIDLASIX [facility] Last Admin: 10/16/17 06:22 Dose: 60 mg Guaifenesin (Mucinex -) 600 mg PO BID [facility] Last Admin: 10/16/17 09:49 Dose: 600 mg Dobutamine HCl/Dextrose (Dobutamine 250 Mg/D5w -) 250,000 mcg in 250 mls @ 25.256 mls/hr IV TITR JEREMÍAS; 5 MCG/KG/MIN PRN Reason: Protocol Last Admin: 10/16/17 11:33 Dose: 5 mcg/kg/min, 25.256 mls/hr Melatonin (Melatonin) 3 mg PO HS [facility] Last Admin: 10/15/17 21:08 Dose: 3 mg Metolazone (Zaroxolyn -) 2.5 mg PO DAILY@0530 [facility] Last Admin: 10/16/17 05:23 Dose: 2.5 mg Polyethylene Glycol (Miralax (For Daily Use) -) 17 gm PO DAILY [facility] Last Admin: 10/16/17 09:59 Dose: 17 gm Spironolactone (Aldactone -) 25 mg PO DAILY [facility] Last Admin: 10/16/17 09:48 Dose: 25 mg - Objective Vital Signs: Vital Signs Temperature 98.2 F 10/16/17 08:00 Pulse Rate 76 10/16/17 11:30 Respiratory Rate 16 10/16/17 11:30 Blood Pressure 112/60 10/16/17 11:33 O2 Sat by Pulse Oximetry (%) 98 10/16/17 09:00 Constitutional: Yes: Well Nourished, Calm Eyes: Yes: WNL HENT: Yes: WNL Neck: Yes: WNL Cardiovascular: Yes: Regular Rate and Rhythm, S1, S2 Respiratory: Yes: Rales (bilateral rales 1/3/up) Gastrointestinal: Yes: Normal Bowel Sounds, Soft Extremities: Yes: WNL Edema: Yes Labs: CBC, BMP 10/16/17 06:30 10/16/17 06:30 INR, PTT INR 1.50 (0.82-1.09) H 10/15/17 08:40 Assessment/Plan 1) CHF (congestive heart failure) Code(s): I50.9 - HEART FAILURE, UNSPECIFIED Qualifiers: Congestive heart failure type: unspecified congestive heart failure type Congestive heart failure chronicity: chronic Qualified Code(s): I50.9 - Heart failure, unspecified (2) Acute exacerbation of CHF (congestive heart failure) Code(s): I50.9 - HEART FAILURE, UNSPECIFIED (3) Anxiety Code(s): F41.9 - ANXIETY DISORDER, UNSPECIFIED (4) COPD (chronic obstructive pulmonary disease) Code(s): J44.9 - CHRONIC OBSTRUCTIVE PULMONARY DISEASE, UNSPECIFIED (5) Chronic mastoiditis, bilateral Code(s): H70.13 - CHRONIC MASTOIDITIS, BILATERAL (6) Compliance poor Code(s): Z91.19 - PATIENT'S NONCOMPLIANCE W OTH MEDICAL TREATMENT AND REGIMEN Assessment/Plan BETA-BLOCKERS DIURETICS O2 BRONCHODILATORS DAILY WEIGHT ABX DR ANGELA
--- NOTE | 2017-10-16 16:23 | PN ---
Physical Exam: SUBJECTIVE: Patient seen and examined at bedside. Denies chest pain, shortness of breath, nausea, vomiting or diarrhea. Patient states that his only current concern is that his legs have not decreased in swelling even after the medications. OBJECTIVE: Vital Signs Period Temp Pulse Resp BP Sys/العلي Pulse Ox Last 24 Hr 97.2 F-98.6 F 70-80 14-20 93-128/54-71 98-98 GENERAL: The patient is awake, alert, and fully oriented, in no acute distress. HEAD: Normal with no signs of trauma. LUNGS: Breath sounds equal, clear to auscultation bilaterally, no wheezes, no crackles, no accessory muscle use. HEART: Regular rate and rhythm, S1, S2 without murmur, rub or gallop. ABDOMEN: Soft, nontender, nondistended, normoactive bowel sounds, no guarding, no rebound, no hepatosplenomegaly, no masses. EXTREMITIES: 2+ pulses, warm, well-perfused, no edema. NEUROLOGICAL: Cranial nerves II through XII grossly intact. Normal speech, gait not observed. Laboratory Results - last 24 hr 10/16/17 10/16/17 10/16/17 06:30 06:30 07:20 WBC 5.4 RBC 4.26 Hgb 10.7 L Hct 34.2 L MCV 80.3 MCH 25.2 L MCHC 31.4 L RDW 23.9 H Plt Count 83 L MPV 9.7 Sodium 139 Potassium 3.8 Chloride 97 L Carbon Dioxide 31 Anion Gap 11 BUN 45 H Creatinine 2.0 H Creat Clearance w eGFR 31.76 Random Glucose 85 D Calcium 8.9 Phosphorus 4.6 Magnesium 2.6 H Total Bilirubin 0.9 D AST 20 ALT 13 Alkaline Phosphatase 130 H B-Natriuretic Peptide 16830.41 H Cancelled Total Protein 7.3 Albumin 3.8 Active Medications Generic Name Dose Route Start Last Admin Trade Name Freq PRN Reason Stop Dose Admin Albuterol Sulfate 1 amp 10/15/17 17:11 Ventolin 0.083% Nebulizer Soln - NEB Q8H PRN SHORT OF BREATH/WHEEZING Amoxicillin 500 mg 10/16/17 10:00 10/16/17 09:58 Amoxicillin - PO 500 mg BID JEREMÍAS Administration Aspirin 81 mg 10/16/17 10:10/16/17 09:49 Ecotrin - PO 81 mg DAILY JEREMÍAS Administration Carvedilol 6.25 mg 10/15/17 22:00 10/16/17 09:49 Coreg - PO 6.25 mg BID JEREMÍAS Administration Clopidogrel Bisulfate 75 mg 10/16/17 07:00 10/16/17 06:22 Plavix - PO 75 mg AM JEREMÍAS Administration Furosemide 60 mg 10/16/17 06:00 10/16/17 14:18 Lasix Injection - IVPUSH 60 mg BIDLASIX JEREMÍAS Administration Guaifenesin 600 mg 10/15/17 22:00 10/16/17 09:49 Mucinex - PO 600 mg BID JEREMÍAS Administration Dobutamine HCl/Dextrose 250,000 mcg in 250 mls @ 25.256 mls/hr 10/16/17 11:15 10/16/17 11:33 Dobutamine 250 Mg/D5w - IV 5 mcg/kg/min TITR JEREMÍAS 25.256 mls/hr Protocol Administration 5 MCG/KG/MIN Melatonin 3 mg 10/15/17 22:00 10/15/17 21:08 Melatonin PO 3 mg HS JEREMÍAS Administration Metolazone 2.5 mg 10/15/17 16:30 10/16/17 05:23 Zaroxolyn - PO 2.5 mg DAILY@0530 JEREMÍAS Administration Polyethylene Glycol 17 gm 10/16/17 10:00 10/16/17 09:59 Miralax (For Daily Use) - PO 17 gm DAILY JEREMÍAS Administration Spironolactone 25 mg 10/16/17 10:00 10/16/17 09:48 Aldactone - PO 25 mg DAILY JEREMÍAS Administration Echo 05/2017: LV systolic function severely decreased with LV dilation and global hypokinesis; LA enlargement; Mod MR ASSESSMENT/PLAN: #Acute on chronic systolic CHF exacerbation: stable, but has not improved from yesterday -continue Lasix 60mg IVP BID -patient was started on dobutamine ggt per cardiology Dr. Campuzano -continue Metolazone, aldactone -Strict I&O's -Daily weights -Increased Coreg to 6.25mg BID; per cardiology can titrate to 12.5mg BID -Cardiology consult appreciated Dr. Campuzano #Abdominal distention: resolved -Highly suspicious for anasarca -Abdominal US ordered, revealed moderate ascites noted -continue diuretic use as detailed above -LFTs in AM #UTI -continue amoxicillin 500mg BID due to susceptibility of enterococcus #CAD -Continue Plavix 75mg qDaily -ASA 81mg qdaily #Pre-diabetes -Diet controlled -diabetic/sodium controlled diet -Last A1c 6.5 #CKD - stable #FEN No standing fluids Replete lytes as necessary Sodium controlled, diabetic diet #Prophylaxis SCDs #Disposition: Transfer to telemetry floor Visit type - Emergency Visit Emergency Visit: No - New Patient This patient is new to me today: No - Critical Care Critical Care patient: No
--- NOTE | 2017-10-16 18:41 | PN ---
Teaching Attending Note Name of Resident: Aleksandr Hernandez ATTENDING PHYSICIAN STATEMENT Time of evaluation: 11;10 AM I saw and evaluated the patient. I reviewed the resident's note and discussed the case with the resident. I agree with the resident's findings and plan as documented. SUBJECTIVE: Patient seen and examined, breathing overall unchanged, still with significant swelling, no new complaints. OBJECTIVE: Vital Signs Period Temp Pulse Resp BP Sys/العلي Pulse Ox Last 24 Hr 97.2 F-98.6 F 73-80 14-18 93-122/54-71 98-98 Intake & Output 10/13/17 10/14/17 10/15/17 10/16/17 23:59 23:59 23:59 23:59 Intake Total 1400 590 560 950 Output Total 500 4167 565 7526 Balance 849 -4564 -90 -4000 Weight 185 lb 14.4 oz 185 lb 12.8 oz 185 lb 9.6 oz General: sitting in chair, no acute distress neck; positive jugular veins distention Abdomen: soft, distended, NT Extremities: unchanged bilateral pitting edema till knees Chest: bibasilar rales Home Medication List Medication Instructions Recorded Confirmed Type Simvastatin 20 mg PO HS 06/10/17 10/11/17 History Potassium Chloride 20 meq PO DAILY 06/27/17 10/11/17 History Carvedilol 6.25 mg PO HS 08/01/17 10/11/17 History Meclizine HCl [Antivert -] 12.5 mg PO TID PRN 08/01/17 10/11/17 History Melatonin 3 mg PO DAILY 09/23/17 10/11/17 History Active Medications Generic Name Dose Route Start Last Admin Trade Name Yovaniq PRN Reason Stop Dose Admin Albuterol Sulfate 1 amp 10/15/17 17:11 Ventolin 0.083% Nebulizer Soln - NEB Q8H PRN SHORT OF BREATH/WHEEZING Amoxicillin 500 mg 10/16/17 10:00 10/16/17 09:58 Amoxicillin - PO 500 mg BID JEREMÍAS Administration Aspirin 81 mg 10/16/17 10:00 10/16/17 09:49 Ecotrin - PO 81 mg DAILY JEREMÍAS Administration Carvedilol 6.25 mg 10/15/17 22:00 10/16/17 09:49 Coreg - PO 6.25 mg BID JEREMÍAS Administration Clopidogrel Bisulfate 75 mg 10/16/17 07:00 10/16/17 06:22 Plavix - PO 75 mg AM JEREMÍAS Administration Furosemide 60 mg 10/16/17 06:00 10/16/17 14:18 Lasix Injection - IVPUSH 60 mg BIDLASIX JEREMÍAS Administration Guaifenesin 600 mg 10/15/17 22:00 10/16/17 09:49 Mucinex - PO 600 mg BID JEREMÍAS Administration Dobutamine HCl/Dextrose 250,000 mcg in 250 mls @ 25.256 mls/hr 10/16/17 11:15 10/16/17 11:33 Dobutamine 250 Mg/D5w - IV 5 mcg/kg/min TITR JEREMÍAS 25.256 mls/hr Protocol Administration 5 MCG/KG/MIN Melatonin 3 mg 10/15/17 22:00 10/15/17 21:08 Melatonin PO 3 mg HS JEREMÍAS Administration Metolazone 2.5 mg 10/15/17 16:30 10/16/17 05:23 Zaroxolyn - PO 2.5 mg DAILY@0530 JEREMÍAS Administration Polyethylene Glycol 17 gm 10/16/17 10:00 10/16/17 09:59 Miralax (For Daily Use) - PO 17 gm DAILY JEREMÍAS Administration Spironolactone 25 mg 10/16/17 10:00 10/16/17 09:48 Aldactone - PO 25 mg DAILY JEREMÍAS Administration Laboratory Results - last 24 hr 10/16/17 10/16/17 10/16/17 06:30 06:30 07:20 WBC 5.4 RBC 4.26 Hgb 10.7 L Hct 34.2 L MCV 80.3 MCH 25.2 L MCHC 31.4 L RDW 23.9 H Plt Count 83 L MPV 9.7 Sodium 139 Potassium 3.8 Chloride 97 L Carbon Dioxide 31 Anion Gap 11 BUN 45 H Creatinine 2.0 H Creat Clearance w eGFR 31.76 Random Glucose 85 D Calcium 8.9 Phosphorus 4.6 Magnesium 2.6 H Total Bilirubin 0.9 D AST 20 ALT 13 Alkaline Phosphatase 130 H B-Natriuretic Peptide 46460.41 H Cancelled Total Protein 7.3 Albumin 3.8 Microbiology 10/12/17 14:48 Urine - Urine Clean Catch Urine Culture - Final Enterococcus Faecalis 2D echo 10/16/2017 reviewed ASSESSMENT AND PLAN: 87 year old man with a history of CAD s/p CABG & stents, chronic systolic heart failure s/p AICD, HTN, hyperlipidemia, CKD who presents to the ED with leg swelling. -Acute on chronic systolic heart failure exacerbation with anasarca -Severe ischemic cardiomyopathy -Acute on Chronic CKD suspect from poor perfusion and CHF -Ascitis, suspect from volume overload -Lower uncomplicated E. faecalis UTI -Hypokalemia -Thrombocytopenia -Normocytic anemia -CAD s/p [place]/CABG/Stents -HTN -Hyperlipiemia Plan Cardiology input noted. started on dobutamine drip. Metolazone 2.5 mg daily. lasix 60 mg IV BID Increased coreg to 6.25 mg BID, titrate up as tolerated. repeat 2D echo noted. Abdominal ultrasound with ascitis. Still with significant anasarca and ascitis, poor response to lasix. Urine cultures noted, Amoxicillin for a total 7 day course. Continue asa/plavix/zocor/aldactone. Monitor renal function closely. SCDs for DVTPPX prognosis guarded given concerning cardiomyopathy with poor response to diuresis Continue telemetry monitoring. Plan discussed with patient in detail, all questions answered.
[2017-10-16] MEDS: MELATONIN 1 MG TABLET PO SCH (23:10)
[2017-10-17] MEDS: METOLAZONE 2.5 MG TABLET (FP) PO SCH (05:39)
[2017-10-17] MEDS: CLOPIDOGREL BISULFATE 75 MG TABLET (FP) PO SCH (06:20)
[2017-10-17] MEDS: FUROSEMIDE 40 MG/4 ML INJECTABLE VIAL IVPUSH SCH ×2 (06:21→14:31)
[2017-10-17 07:21] LABS: HEMATOCRIT 32.2 % (35.4-49); HEMOGLOBIN 10.2 GM/dL (11.7-16.9); MCH 25.4 pg (25.7-33.7); MCHC 31.8 g/dl (32.0-35.9); MEAN CELL VOLUME 79.8 fl (80-96); MEAN PLT VOLUME 9.3 fl (7.5-11.1); PLATELET COUNT 96 K/MM3 (134-434); RBC 4.03 M/mm3 (4.00-5.60); RDW 24.2 % (11.9-15.9); WHITE BLOOD COUNT 5.7 K/mm3 (4.0-10.0)
[2017-10-17 07:44] LABS: ALBUMIN 3.8 g/dl (3.4-5.0); ANION GAP 11 (8-16); BLOOD UREA NITROGEN 47 mg/dL (7-18); CALCIUM 9.3 mg/dL (8.5-10.1); CHLORIDE 93 mmol/L (98-107); CO2 32 mmol/L (21-32); GLUCOSE,RANDOM 87 mg/dL (74-106); POTASSIUM 3.4 mmol/L (3.5-5.1); SODIUM 136 mmol/L (136-145)
[2017-10-17 07:47] LABS: ALK PHOS 119 U/L (45-117); BILIRUBIN,TOTAL 1.3 mg/dL (0.2-1.0); CREATININE 1.9 mg/dL (0.7-1.3); SGOT/AST 24 U/L (15-37); SGPT/ALT 13 U/L (12-78); TOT PROT 7.6 g/dl (6.4-8.2)
[2017-10-17] MEDS ORDERED: POTASSIUM CHLORIDE TABS 20 MEQ TABLET.ER (FP) PO ONE (08:15)
--- NOTE | 2017-10-17 08:55 | PN ---
Teaching Attending Note Name of Resident: Aleksandr Joyner ATTENDING PHYSICIAN STATEMENT Time of evaluation: I saw and evaluated the patient. I reviewed the resident's note and discussed the case with the resident. I agree with the resident's findings and plan as documented. SUBJECTIVE: Patient seen and examined. upset that has to urinate often. Otherwise feels the same overall. OBJECTIVE: Vital Signs Period Temp Pulse Resp BP Sys/العلي Pulse Ox Last 24 Hr 97.8 F-98.6 F 75-77 14-20 112-128/60-69 98-98 Intake & Output 10/14/17 10/15/17 10/16/17 10/17/17 23:59 23:59 23:59 23:59 Intake Total 693 729 6614 570 Output Total 0328 361 7698 750 Balance -1110 -90 -2170 -180 Weight 185 lb 12.8 oz 185 lb 9.6 oz General: in chair with his head down Neck: Jugular vein distension with positive hepatojugular reflux CVS: S1s2 regular Chest bibasilar rales Abdomen: soft, distended, non tender extremities: unchanged pedal edema Home Medication List Medication Instructions Recorded Confirmed Type Simvastatin 20 mg PO HS 06/10/17 10/11/17 History Potassium Chloride 20 meq PO DAILY 06/27/17 10/11/17 History Carvedilol 6.25 mg PO HS 08/01/17 10/11/17 History Meclizine HCl [Antivert -] 12.5 mg PO TID PRN 08/01/17 10/11/17 History Melatonin 3 mg PO DAILY 09/23/17 10/11/17 History Active Medications Generic Name Dose Route Start Last Admin Trade Name Freq PRN Reason Stop Dose Admin Albuterol Sulfate 1 amp 10/15/17 17:11 Ventolin 0.083% Nebulizer Soln - NEB Q8H PRN SHORT OF BREATH/WHEEZING Amoxicillin 500 mg 10/16/17 10:00 10/16/17 23:10 Amoxicillin - PO Not Given BID JEREMÍAS Aspirin 81 mg 10/16/17 10:00 10/16/17 09:49 Ecotrin - PO 81 mg DAILY JEREMÍAS Administration Carvedilol 6.25 mg 10/15/17 22:00 10/16/17 23:10 Coreg - PO 6.25 mg BID JEREMÍAS Administration Clopidogrel Bisulfate 75 mg 10/16/17 07:00 10/17/17 06:20 Plavix - PO 75 mg AM JEREMÍAS Administration Furosemide 60 mg 10/16/17 06:00 10/17/17 06:21 Lasix Injection - IVPUSH 60 mg BIDLASIX JEREMÍAS Administration Guaifenesin 600 mg 10/15/17 22:00 10/16/17 23:10 Mucinex - PO 600 mg BID JEREMÍAS Administration Dobutamine HCl/Dextrose 250,000 mcg in 250 mls @ 25.256 mls/hr 10/16/17 11:15 10/16/17 23:10 Dobutamine 250 Mg/D5w - IV 5 mcg/kg/min TITR JEREMÍAS 25.256 mls/hr Protocol Administration 5 MCG/KG/MIN Melatonin 3 mg 10/15/17 22:00 10/16/17 23:10 Melatonin PO 3 mg HS JEREMÍAS Administration Metolazone 2.5 mg 10/15/17 16:30 10/17/17 05:39 Zaroxolyn - PO 2.5 mg DAILY@0530 JEREMÍAS Administration Polyethylene Glycol 17 gm 10/16/17 10:00 10/16/17 09:59 Miralax (For Daily Use) - PO 17 gm DAILY JEREMÍAS Administration Spironolactone 25 mg 10/16/17 10:00 10/16/17 09:48 Aldactone - PO 25 mg DAILY JEREMÍAS Administration Microbiology 10/12/17 14:48 Urine - Urine Clean Catch Urine Culture - Final Enterococcus Faecalis Laboratory Results - last 24 hr 10/16/17 10/17/17 10/17/17 06:30 07:05 07:05 WBC 5.7 RBC 4.03 Hgb 10.2 L Hct 32.2 L MCV 79.8 L MCH 25.4 L MCHC 31.8 L RDW 24.2 H Plt Count 96 L MPV 9.3 Sodium 136 Potassium 3.4 L Chloride 93 L Carbon Dioxide 32 Anion Gap 11 BUN 47 H Creatinine 1.9 H Creat Clearance w eGFR 33.70 Random Glucose 87 Calcium 9.3 Total Bilirubin 1.3 H D AST 24 ALT 13 Alkaline Phosphatase 119 H B-Natriuretic Peptide 61953.41 H Total Protein 7.6 Albumin 3.8 2D echo results reviewed ASSESSMENT AND PLAN: 87 year old man with a history of CAD s/p CABG & stents, chronic systolic heart failure s/p AICD, HTN, hyperlipidemia, CKD who presents to the ED with leg swelling. -Acute on chronic systolic heart failure exacerbation with anasarca -Severe ischemic cardiomyopathy -Acute on Chronic CKD suspect from poor perfusion and CHF -Ascitis, suspect from volume overload -Lower uncomplicated E. faecalis UTI -Hypokalemia -Thrombocytopenia -Normocytic anemia -CAD s/p [place]/CABG/Stents -HTN -Hyperlipiemia Plan Cardiology input noted. started on dobutamine drip 1/3 Improved urine output and volume status today. Metolazone 2.5 mg daily. lasix 60 mg IV BID, strict I/Os Increase coreg to 12.5 mg BID, titrate up as tolerated. repeat 2D echo noted. Abdominal ultrasound with ascitis. Monitor lytes. Urine cultures noted, changed to amoxicillin, antibiotic day 6/7. Continue asa/plavix/zocor/aldactone. Monitor renal function closely. SCDs for DVTPPX prognosis guarded given concerning cardiomyopathy with poor response to diuresis Continue telemetry monitoring. Place condom catheter per patient preference. Plan discussed with patient in detail, all questions answered.
[2017-10-17] MEDS: guaiFENesin 600 MG TABLET.ER (FP) PO SCH ×2 (09:40→22:52)
[2017-10-17] MEDS: CARVEDILOL 6.25 MG TABLET (FP) PO SCH (09:40)
[2017-10-17] MEDS: ASPIRIN COATED 81 MG TABLET.EC PO SCH (09:40)
[2017-10-17] MEDS: SPIRONOLACTONE 25 MG TABLET (FP) PO SCH (09:40)
[2017-10-17] MEDS: POLYETHYLENE GLYCOL 3350 119 GM BTL PO SCH (09:43)
[2017-10-17] MEDS: AMOXICILLIN 500 MG CAPSULE (FP) PO SCH ×2 (10:47→22:51)
--- NOTE | 2017-10-17 11:22 | PN ---
Progress Note, Physician History of Present Illness: PULMONARY ALERT,OOB-CHAIR,LESS DYSPNEIC,+LOWER EXT EDEMA - Current Medication List Current Medications: Active Medications Albuterol Sulfate (Ventolin 0.083% Nebulizer Soln -) 1 amp NEB Q8H PRN PRN Reason: SHORT OF BREATH/WHEEZING Amoxicillin (Amoxicillin -) 500 mg PO BID [facility] Last Admin: 10/17/17 10:47 Dose: 500 mg Aspirin (Ecotrin -) 81 mg PO DAILY [facility] Last Admin: 10/17/17 09:40 Dose: 81 mg Carvedilol (Coreg -) 12.5 mg PO BID [facility] Clopidogrel Bisulfate (Plavix -) 75 mg PO AM [facility] Last Admin: 10/17/17 06:20 Dose: 75 mg Furosemide (Lasix Injection -) 60 mg IVPUSH BIDLASIX [facility] Last Admin: 10/17/17 06:21 Dose: 60 mg Guaifenesin (Mucinex -) 600 mg PO BID [facility] Last Admin: 10/17/17 09:40 Dose: 600 mg Dobutamine HCl/Dextrose (Dobutamine 250 Mg/D5w -) 250,000 mcg in 250 mls @ 25.256 mls/hr IV TITR [facility], [facility]; 5 MCG/KG/MIN PRN Reason: Protocol Last Admin: 10/16/17 23:10 Dose: 5 mcg/kg/min, 25.256 mls/hr Melatonin (Melatonin) 3 mg PO HS [facility] Last Admin: 10/16/17 23:10 Dose: 3 mg Metolazone (Zaroxolyn -) 2.5 mg PO DAILY@0530 [facility] Last Admin: 10/17/17 05:39 Dose: 2.5 mg Polyethylene Glycol (Miralax (For Daily Use) -) 17 gm PO DAILY [facility] Last Admin: 10/17/17 09:43 Dose: 17 gm Spironolactone (Aldactone -) 25 mg PO DAILY [facility] Last Admin: 10/17/17 09:40 Dose: 25 mg - Objective Vital Signs: Vital Signs Temperature 98.2 F 10/17/17 06:00 Pulse Rate 75 10/17/17 06:00 Respiratory Rate 20 10/17/17 06:00 Blood Pressure 128/66 10/17/17 06:00 O2 Sat by Pulse Oximetry (%) 96 10/17/17 09:00 Constitutional: Yes: Well Nourished, Calm Eyes: Yes: WNL HENT: Yes: WNL Neck: Yes: WNL Cardiovascular: Yes: Regular Rate and Rhythm, S1, S2 Respiratory: Yes: Rales (BILATERAL RALES 1/3 UP) Gastrointestinal: Yes: Normal Bowel Sounds, Soft Extremities: Yes: WNL Edema: Yes Labs: CBC, BMP 10/17/17 07:05 10/17/17 07:05 INR, PTT INR 1.50 (0.82-1.09) H 10/15/17 08:40 Assessment/Plan 1) CHF (congestive heart failure) Code(s): I50.9 - HEART FAILURE, UNSPECIFIED Qualifiers: Congestive heart failure type: unspecified congestive heart failure type Congestive heart failure chronicity: chronic Qualified Code(s): I50.9 - Heart failure, unspecified (2) Acute exacerbation of CHF (congestive heart failure) Code(s): I50.9 - HEART FAILURE, UNSPECIFIED (3) Anxiety Code(s): F41.9 - ANXIETY DISORDER, UNSPECIFIED (4) COPD (chronic obstructive pulmonary disease) Code(s): J44.9 - CHRONIC OBSTRUCTIVE PULMONARY DISEASE, UNSPECIFIED (5) Chronic mastoiditis, bilateral Code(s): H70.13 - CHRONIC MASTOIDITIS, BILATERAL (6) Compliance poor Code(s): Z91.19 - PATIENT'S NONCOMPLIANCE W OTH MEDICAL TREATMENT AND REGIMEN Assessment/Plan BETA-BLOCKERS DIURETICS O2 BRONCHODILATORS DAILY WEIGHT ABX DR ANGELA
[2017-10-17] MEDS: DOBUTAMINE 250 MG/D5W - 250,000 MCG/250 ML INFUS.BAG IV SCH ×2 (11:28→14:26)
--- NOTE | 2017-10-17 13:12 | PN ---
Progress Note, Physician Chief Complaint: fluid/edema History of Present Illness: (being seen for Dr. Huitron) pt not convinced swelling in legs/thighs is improving. denies sob but not active. denies orthopnea but sleeping in chair "b/c i'm tired of laying down since june". frequent urination with lasix regimen. denies cp/heaviness, palpitations, syncope remote ex-cigs - Current Medication List Current Medications: Active Medications Albuterol Sulfate (Ventolin 0.083% Nebulizer Soln -) 1 amp NEB Q8H PRN PRN Reason: SHORT OF BREATH/WHEEZING Amoxicillin (Amoxicillin -) 500 mg PO BID [facility] Last Admin: 10/17/17 10:47 Dose: 500 mg Aspirin (Ecotrin -) 81 mg PO DAILY [facility] Last Admin: 10/17/17 09:40 Dose: 81 mg Carvedilol (Coreg -) 12.5 mg PO BID [facility] Clopidogrel Bisulfate (Plavix -) 75 mg PO AM [facility] Last Admin: 10/17/17 06:20 Dose: 75 mg Furosemide (Lasix Injection -) 60 mg IVPUSH BIDLASIX [facility] Last Admin: 10/17/17 06:21 Dose: 60 mg Guaifenesin (Mucinex -) 600 mg PO BID [facility] Last Admin: 10/17/17 09:40 Dose: 600 mg Dobutamine HCl/Dextrose (Dobutamine 250 Mg/D5w -) 250,000 mcg in 250 mls @ 25.256 mls/hr IV TITR JEREMÍAS; 5 MCG/KG/MIN PRN Reason: Protocol Last Admin: 10/17/17 11:28 Dose: 5 mcg/kg/min, 25.256 mls/hr Melatonin (Melatonin) 3 mg PO HS [facility] Last Admin: 10/16/17 23:10 Dose: 3 mg Metolazone (Zaroxolyn -) 2.5 mg PO DAILY@0530 [facility] Last Admin: 10/17/17 05:39 Dose: 2.5 mg Polyethylene Glycol (Miralax (For Daily Use) -) 17 gm PO DAILY [facility] Last Admin: 10/17/17 09:43 Dose: 17 gm Spironolactone (Aldactone -) 25 mg PO DAILY [facility] Last Admin: 10/17/17 09:40 Dose: 25 mg - Objective Vital Signs: Vital Signs Temperature 98.2 F 10/17/17 10:00 Pulse Rate 79 10/17/17 10:00 Respiratory Rate 18 10/17/17 10:00 Blood Pressure 116/53 10/17/17 11:28 O2 Sat by Pulse Oximetry (%) 96 10/17/17 09:00 Constitutional: Yes: No Distress, Calm Eyes: No: Sclera Icterus HENT: No: Nasal Congestion Cardiovascular: Yes: Regular Rate and Rhythm (soft sounds), JVD (+8cm at 90 degrees), S1, S2, Other (PMI non diplaced). No: Gallop, Murmur Respiratory: Yes: CTA Bilaterally. No: Accessory Muscle Use, Rales, Wheezes Gastrointestinal: Yes: Normal Bowel Sounds, Soft. No: Tenderness Musculoskeletal: Yes: Other (No kyphosis) Extremities: No: Cold Edema: Yes (2+ thighs, 3+ pretib) Integumentary: No: Jaundice Neurological: Yes: Alert, Oriented (x3) Psychiatric: No: Agitated Labs: CBC, BMP 10/17/17 07:05 10/17/17 07:05 INR, PTT INR 1.50 (0.82-1.09) H 10/15/17 08:40 - ....Imaging EKG: Other (tele: NSR, no events) Assessment/Plan Echo 10/31: mod LVE, severely decr LVSF (global). nl RV. mild-mod MR/TR. no pHTN IMPRESSION: 1. CHF, NYHA class III. 2. Severe LV systolic dysfunction. 3. Moderate Ascites. 4. S/p NSTEMI, s/p PCI/stenting. 5. S/p ICD. 6. CKD--baseline creatinine previously around 1.8-2.3 7. ILD/ COPD 8. Chronic anemia. 9. CAD/s/p CABG 10. Chronic vertigo. 11. Tricuspid regurgitation (on physical exam) 12. thrombocytopenia--counts presently down from prior baseline 13. anemia--counts stable RECOMMENDATIONS: -Receiving inotrope-assisted diuresis here. -CXR 10/16 (report and image reviewed): mild incr markings, no effusions, ? congestion vs chronic interstitial--worse vs 08/01, suspect congestion. -remains grossly very overloaded with severe JVD present. first standing wt done 10/16 = 185 lbs. pt refused standing wt today per RN. wt ranged 172-175 when here 06/30, was 181 on d/c 07/30. now agreeable to daily wt.s -insert bond (pt preference, given urinary freq/urgency -incr lasix to 100 iv bid, cont metolazone 2.5 with dobutamine fixed dose (5mcg/ kg/min) -monitor lytes, replete K and Mag to 4 and 2, respectively. -Continue carvedilol 12.5mg BID, spirono 25 qd. not on ALYCE, GFR 30s--defer. -no signs of cardiorenal syndrome--close creatinine f/u -pt has LBBB with QRS btw 120-130 msec. if pt willing, can consider upgrade of device to [place]/D if has only ICD in place presently (for sx control/qual of life) -CAD regimen: cont DAPT and BB per prior CAD tx (s/p PCI). no statin being given here--defer to dr huitron who returns 10/21 (? prior refusal/intolerance)
--- NOTE | 2017-10-17 16:58 | PN ---
Physical Exam: SUBJECTIVE: No acute events overnight per pt and monitoring. Pt reports not being able to sleep last night and being frustrated with his current clinical scenario. OBJECTIVE: Vital Signs Period Temp Pulse Resp BP Sys/العلي Pulse Ox Last 24 Hr 97.8 F-98.7 F 75-79 18-20 114-129/53-69 96-98 GENERAL: NAD, awake, alert, and fully oriented, sitting in chair covered with blankets HEENT: NC/AT, sclera anicteric, EOMI, SIMON, + b/l JVD appreciated, no bruits upon auscultation LUNGS: Bibasilar rales noted, no wheezes, or rhonchi. No accessory muscle use. On 4LNC HEART: RRR, S1,split S2 without murmur appreciated ABDOMEN: Soft, nontender, distended, distant normoactive bowel sounds, no guarding, no hepatomegaly, + hepatojugular reflux EXTREMITIES: 2+ DP pulses, warm, well-perfused, 2+ edema noted to upper lower extremities b/l NEUROLOGICAL: Cranial nerves II through XII grossly intact. Normal speech, gait not observed. PSYCH: Normal mood, normal affect. SKIN: Warm, dry, no rashes or lesions noted Laboratory Results - last 24 hr 10/17/17 10/17/17 07:05 07:05 WBC 5.7 RBC 4.03 Hgb 10.2 L Hct 32.2 L MCV 79.8 L MCH 25.4 L MCHC 31.8 L RDW 24.2 H Plt Count 96 L MPV 9.3 Sodium 136 Potassium 3.4 L Chloride 93 L Carbon Dioxide 32 Anion Gap 11 BUN 47 H Creatinine 1.9 H Creat Clearance w eGFR 33.70 Random Glucose 87 Calcium 9.3 Total Bilirubin 1.3 H D AST 24 ALT 13 Alkaline Phosphatase 119 H Total Protein 7.6 Albumin 3.8 Active Medications Generic Name Dose Route Start Last Admin Trade Name Freq PRN Reason Stop Dose Admin Albuterol Sulfate 1 amp 10/15/17 17:11 Ventolin 0.083% Nebulizer Soln - NEB Q8H PRN SHORT OF BREATH/WHEEZING Amoxicillin 500 mg 10/16/17 10:00 10/17/17 10:47 Amoxicillin - PO 500 mg BID JEREM[facility]AS Administration Aspirin 81 mg 10/16/17 10:00 01/04/18 09:40 Ecotrin - PO 81 mg DAILY JEREMÍAS Administration Carvedilol 12.5 mg 10/17/17 22:00 Coreg - PO BID JEREMÍAS Clopidogrel Bisulfate 75 mg 10/16/17 07:00 10/17/17 06:20 Plavix - PO 75 mg AM JEREMÍAS Administration Furosemide 100 mg 10/17/17 14:29 Lasix Injection - IVPUSH BIDLASIX JEREMÍAS Guaifenesin 600 mg 10/15/17 22:00 10/17/17 09:40 Mucinex - PO 600 mg BID JEREMÍAS Administration Dobutamine HCl/Dextrose 250,000 mcg in 250 mls @ 25.256 mls/hr 10/17/17 13:15 10/17/17 14:26 Dobutamine 250 Mg/D5w - IV 5 mcg/kg/min TITR JEREMÍAS 25.256 mls/hr 5 MCG/KG/MIN Administration Melatonin 3 mg 10/15/17 22:00 10/16/17 23:10 Melatonin PO 3 mg HS JEREMÍAS Administration Metolazone 2.5 mg 10/15/17 16:30 10/17/17 05:39 Zaroxolyn - PO 2.5 mg DAILY@0530 JEREMÍAS Administration Polyethylene Glycol 17 gm 10/16/17 10:00 10/17/17 09:43 Miralax (For Daily Use) - PO 17 gm DAILY JEREMÍAS Administration Spironolactone 25 mg 10/16/17 10:00 10/17/17 09:40 Aldactone - PO 25 mg DAILY JEREMÍAS Administration ASSESSMENT/PLAN: 1) Acute on chronic systolic CHF exacerbation --NYHA Class II --Lasix 100mg IVP BID continued --Will give additional one-time dose Lasix 20mg IVP again today --Most recent echo 05/2017: LV systolic function severely decreased with LV dilation and global hypokinesis; LA enlargement; Mod MR; mild --Strict I&O's --[place] catheter to be placed due to pt's frustration of having to get up for frequent voiding --Daily weights --Continue Aldactone 25mg qDaily PO --Increased Coreg to 12.5mg BID --Cardiology consulted --Zeroxlyn to continue --Dobutamine doses to continue --Good output with lasix as a result 2) Abdominal distention --Abdominal US revealed moderate ascites noted --See above for diuretic use 3) UTI --Urine cultures reviewed with sensitivities --Amoxicillin 500mg BID due to susceptibility of enterococcus day 03/20 4) CAD --Continue Plavix 75mg qDaily --Continue Lipitor 10mg HS --ASA 81mg qdaily 5) Pre-diabetes --Diet controlled --diabetic/sodium controlled diet --Last A1c 6.5 6) CKD --Most likely 2/2 cardiorenal syndrome --Cr at baseline (2.1) --Avoid nephrotoxic agents --Trend BMP FEN Fluids: Avoid due to hypervolemic state Electrolyte Abnormalities: Hypokalemia; repleted with 40mEq Kdur Nutrition: Sodium controlled, diabetic diet PPX DVT - mod risk - SCDs Dispo: continue tele floor Case discussed with Dr. Sonny Joyner, DO - Internal Medicine PGY-1 Visit type - Emergency Visit Emergency Visit: No - New Patient This patient is new to me today: No - Critical Care Critical Care patient: No
[2017-10-17] MEDS: CARVEDILOL 12.5 MG TABLET (FP) PO SCH (22:52)
[2017-10-17] MEDS: MELATONIN 1 MG TABLET PO SCH (22:52)
[2017-10-18] MEDS: METOLAZONE 2.5 MG TABLET (FP) PO SCH (05:34)
[2017-10-18] MEDS: DOBUTAMINE 250 MG/D5W - 250,000 MCG/250 ML INFUS.BAG IV SCH ×2 (05:35→18:41)
[2017-10-18] MEDS: CLOPIDOGREL BISULFATE 75 MG TABLET (FP) PO SCH (06:31)
[2017-10-18] MEDS: FUROSEMIDE 40 MG/4 ML INJECTABLE VIAL IVPUSH SCH ×2 (06:33→13:47)
[2017-10-18 08:10] LABS: HEMATOCRIT 30.6 % (35.4-49); HEMOGLOBIN 9.7 GM/dL (11.7-16.9); MCH 25.4 pg (25.7-33.7); MCHC 31.8 g/dl (32.0-35.9); MEAN CELL VOLUME 79.6 fl (80-96); MEAN PLT VOLUME 9.2 fl (7.5-11.1); PLATELET COUNT 90 K/MM3 (134-434); RBC 3.84 M/mm3 (4.00-5.60); RDW 24.1 % (11.9-15.9); WHITE BLOOD COUNT 5.6 K/mm3 (4.0-10.0)
[2017-10-18 08:28] LABS: ADD RBC MORPHOLOGY YES
--- NOTE | 2017-10-18 08:41 | PN ---
Teaching Attending Note Name of Resident: Aleksandr Joyner ATTENDING PHYSICIAN STATEMENT Time of evaluation: 10:55 AM I saw and evaluated the patient. I reviewed the resident's note and discussed the case with the resident. I agree with the resident's findings and plan as documented. SUBJECTIVE: Patient seen and examined. breathing better today, urinating a lot, no new complaints. Still with leg swelling. OBJECTIVE: Vital Signs Period Temp Pulse Resp BP Sys/العلي Pulse Ox Last 24 Hr 97.4 F-98.3 F 74-79 18-20 113-136/53-70 96-97 Intake & Output 10/15/17 10/16/17 10/17/17 10/18/17 23:59 23:59 23:59 23:59 Intake Total 560 1150 1460 450 Output Total 650 3320 2650 1700 Balance -90 -2170 -1190 -1250 Weight 185 lb 9.6 oz 172 lb 6.4 oz General: lying in bed in no acute distress CVS: S1S2 regular chest: Bibasilar rales, improved air entry Abdomen: soft, NT extremities: pitting pedal boogie till knees Neck: positive jugular venous distension Home Medication List Medication Instructions Recorded Confirmed Type Simvastatin 20 mg PO HS 06/10/17 10/11/17 History Potassium Chloride 20 meq PO DAILY 06/27/17 10/11/17 History Carvedilol 6.25 mg PO HS 08/01/17 10/11/17 History Meclizine HCl [Antivert -] 12.5 mg PO TID PRN 08/01/17 10/11/17 History Melatonin 3 mg PO DAILY 09/23/17 10/11/17 History Active Medications Generic Name Dose Route Start Last Admin Trade Name Freq PRN Reason Stop Dose Admin Albuterol Sulfate 1 amp 10/15/17 17:11 Ventolin 0.083% Nebulizer Soln - NEB Q8H PRN SHORT OF BREATH/WHEEZING Amoxicillin 500 mg 10/16/17 10:00 10/17/17 22:51 Amoxicillin - PO 500 mg BID JEREMÍAS Administration Aspirin 81 mg 10/16/17 10:10/17/17 09:40 Ecotrin - PO 81 mg DAILY JEREMÍAS Administration Carvedilol 12.5 mg 10/17/17 22:00 10/17/17 22:52 Coreg - PO 12.5 mg BID JEREMÍAS Administration Clopidogrel Bisulfate 75 mg 10/16/17 07:00 10/18/17 06:31 Plavix - PO 75 mg AM JEREMÍAS Administration Furosemide 100 mg 10/17/17 14:29 10/18/17 06:33 Lasix Injection - IVPUSH 100 mg BIDLASIX JEREMÍAS Administration Guaifenesin 600 mg 10/15/17 22:00 10/17/17 22:52 Mucinex - PO 600 mg BID JEREMÍAS Administration Dobutamine HCl/Dextrose 250,000 mcg in 250 mls @ 25.256 mls/hr 10/17/17 13:15 10/18/17 05:35 Dobutamine 250 Mg/D5w - IV 5 mcg/kg/min TITR JEREMÍAS 25.256 mls/hr 5 MCG/KG/MIN Administration Melatonin 3 mg 10/15/17 22:00 10/17/17 22:52 Melatonin PO 3 mg HS JEREMÍAS Administration Metolazone 2.5 mg 10/15/17 16:30 10/18/17 05:34 Zaroxolyn - PO 2.5 mg DAILY@0530 JEREM[facility]AS Administration Polyethylene Glycol 17 gm 10/16/17 10:00 10/17/17 09:43 Miralax (For Daily Use) - PO 17 gm DAILY JEREMÍAS Administration Spironolactone 25 mg 10/16/17 10:00 10/17/17 09:40 Aldactone - PO 25 mg DAILY JEREMÍAS Administration Laboratory Results - last 24 hr 10/18/17 10/18/17 05:25 05:25 WBC 5.6 RBC 3.84 L Hgb 9.7 L Hct 30.6 L MCV 79.6 L MCH 25.4 L MCHC 31.8 L RDW 24.1 H Plt Count 90 L MPV 9.2 Hypochromia 0 Polychromasia 0 Poikilocytosis 0 Anisocytosis 3+ Microcytosis 2+ Macrocytosis 0 Sodium 131 L Potassium 3.2 L Chloride 91 L Carbon Dioxide 31 Anion Gap 9 BUN 45 H Creatinine 1.8 H Random Glucose 92 Calcium 9.0 Phosphorus 4.4 Magnesium 2.6 H Microbiology 10/12/17 14:48 Urine - Urine Clean Catch Urine Culture - Final Enterococcus Faecalis 2D echo results reviewed ASSESSMENT AND PLAN: 87 year old man with a history of CAD s/p CABG & stents, chronic systolic heart failure s/p AICD, HTN, hyperlipidemia, CKD who presents to the ED with leg swelling. -Acute on chronic systolic heart failure exacerbation with anasarca -Severe ischemic cardiomyopathy -Acute on Chronic CKD suspect from poor perfusion and CHF -Ascitis, suspect from volume overload -Lower uncomplicated E. faecalis UTI -Hypokalemia -Thrombocytopenia -Normocytic anemia -CAD s/p IN/CABG/Stents -HTN -Hyperlipiemia Plan Cardiology input noted. started on dobutamine drip 1/3 Improving urine output and volume status. Metolazone 2.5 mg daily. lasix 100 mg IV BID, strict I/Os Increased coreg to 12.5 mg BID, tolerating well. repeat 2D echo noted. Abdominal ultrasound with ascitis. Monitor lytes. Urine cultures noted, changed to amoxicillin, antibiotic day 04/19. Continue asa/plavix/zocor/aldactone. Monitor renal function closely. SCDs for DVTPPX prognosis guarded given concerning cardiomyopathy with poor response to diuresis Continue telemetry monitoring. Condom catheter per patient preference. Plan discussed with patient in detail, all questions answered.
[2017-10-18 09:17] LABS: ANION GAP 9 (8-16); BLOOD UREA NITROGEN 45 mg/dL (7-18); CHLORIDE 91 mmol/L (98-107); CO2 31 mmol/L (21-32); GLUCOSE,RANDOM 92 mg/dL (74-106); MAGNESIUM 2.6 mg/dL (1.8-2.4); POTASSIUM 3.2 mmol/L (3.5-5.1); SODIUM 131 mmol/L (136-145)
[2017-10-18 09:18] LABS: CREATININE 1.8 mg/dL (0.7-1.3); PHOSPHOROUS 4.4 mg/dL (2.5-4.9)
[2017-10-18] MEDS: ASPIRIN COATED 81 MG TABLET.EC PO SCH (09:25)
[2017-10-18] MEDS: SPIRONOLACTONE 25 MG TABLET (FP) PO SCH (09:25)
[2017-10-18] MEDS: guaiFENesin 600 MG TABLET.ER (FP) PO SCH ×2 (09:25→22:48)
[2017-10-18] MEDS: AMOXICILLIN 500 MG CAPSULE (FP) PO SCH (09:25)
[2017-10-18] MEDS: CARVEDILOL 12.5 MG TABLET (FP) PO SCH ×2 (09:25→22:48)
[2017-10-18] MEDS: POLYETHYLENE GLYCOL 3350 119 GM BTL PO SCH (09:28)
[2017-10-18] MEDS ORDERED: POTASSIUM CHLORIDE TABS 20 MEQ TABLET.ER (FP) PO ONE ×2 (10:17→14:00)
[2017-10-18 11:11] LABS: ANISOCYTOSIS 3+; MACROCYTOSIS 0
--- NOTE | 2017-10-18 11:58 | PN ---
Progress Note (short form) - Note Progress Note: Chief Complaint: fluid/edema History of Present Illness: (being seen for Dr. Huitron) le edema better today, sob minimal denies cp/heaviness, palpitations, syncope remote ex-cigs - Current Medication List Current Medications Generic Name Dose Route Start Last Admin Trade Name Freq PRN Reason Stop Dose Admin Albuterol Sulfate 1 amp 10/15/17 17:11 Ventolin 0.083% Nebulizer Soln - NEB Q8H PRN SHORT OF BREATH/WHEEZING Amoxicillin 500 mg 10/16/17 10:00 10/18/17 09:25 Amoxicillin - PO 500 mg BID JEREMÍAS Administration Aspirin 81 mg 10/16/17 10:00 10/18/17 09:25 Ecotrin - PO 81 mg DAILY JEREMÍAS Administration Carvedilol 12.5 mg 10/17/17 22:00 10/18/17 09:25 Coreg - PO 12.5 mg BID JEREMÍAS Administration Clopidogrel Bisulfate 75 mg 10/16/17 07:00 10/18/17 06:31 Plavix - PO 75 mg AM JEREMÍAS Administration Furosemide 100 mg 10/17/17 14:29 10/18/17 06:33 Lasix Injection - IVPUSH 100 mg BIDLASIX JEREMÍAS Administration Guaifenesin 600 mg 10/15/17 22:00 10/18/17 09:25 Mucinex - PO 600 mg BID JEREMÍAS Administration Dobutamine HCl/Dextrose 250,000 mcg in 250 mls @ 25.256 mls/hr 10/17/17 13:15 10/18/17 05:35 Dobutamine 250 Mg/D5w - IV 5 mcg/kg/min TITR JEREMÍAS 25.256 mls/hr 5 MCG/KG/MIN Administration Melatonin 3 mg 10/15/17 22:00 10/17/17 22:52 Melatonin PO 3 mg HS JEREMÍAS Administration Metolazone 2.5 mg 10/15/17 16:30 10/18/17 05:34 Zaroxolyn - PO 2.5 mg DAILY@0530 JEREMÍAS Administration Polyethylene Glycol 17 gm 10/16/17 10:00 10/18/17 09:28 Miralax (For Daily Use) - PO Not Given DAILY JEREMÍAS Potassium Chloride 40 meq 10/18/17 14:00 K-Dur - PO 10/18/17 14:01 ONCE ONE Spironolactone 25 mg 10/16/17 10:00 10/18/17 09:25 Aldactone - PO 25 mg DAILY JEREMÍAS Administration - Objective Vital Signs: Vital Signs Temp 97.9 F 10/18/17 09:23 Pulse 72 10/18/17 09:23 Resp 20 10/18/17 09:23 BP 115/64 10/18/17 09:23 Pulse Ox 94 L 10/18/17 08:00 Intake & Output 10/17/17 10/17/17 10/18/17 11:59 23:59 11:59 Intake Total 920 540 450 Output Total 1300 1350 1700 Balance -380 -810 -1250 Weight 172 lb 6.4 oz Intake: IV 330 300 330 DOBUTAMINE 250 MG/D5W - 300 300 250,000 mcg In 250 ml @ 5 MCG/KG/MIN 25.256 mls/hr IV TITR JEREMÍAS Rx#: [id number] DOBUTAMINE 250 MG/D5W - 300 250,000 mcg In 250 ml @ 5 MCG/KG/MIN 25.256 mls/hr IV TITR JEREMÍAS Rx#: [id number] 22 10/14/2017 30 30 Oral 590 240 120 Output: Urine 1300 1350 1700 [place] 1700 Void 1300 1350 Other: Voiding Method Urinal Indwelling Catheter Urinal # Unmeasured Voids Newberry 900 Void 3 Bowel Movement No No No Weight Measurement Method Standing Scale Constitutional: Yes: No Distress, Calm Eyes: No: Sclera Icterus HENT: No: Nasal Congestion Cardiovascular: Yes: Regular Rate and Rhythm (soft sounds), JVD (+8cm at 90 degrees), S1, S2, Other (PMI non diplaced). No: Gallop, Murmur Respiratory: Yes: CTA Bilaterally. No: Accessory Muscle Use, Rales, Wheezes Gastrointestinal: Yes: Normal Bowel Sounds, Soft. No: Tenderness Musculoskeletal: Yes: Other (No kyphosis) Extremities: No: Cold Edema: Yes (1+ thighs, 1+ pretib) Integumentary: No: Jaundice Neurological: Yes: Alert, Oriented (x3) Psychiatric: No: Agitated Labs: Laboratory Last Values WBC 5.6 K/mm3 (4.0-10.0) 10/18/17 05:25 RBC 3.84 M/mm3 (4.00-5.60) L 10/18/17 05:25 Hgb 9.7 GM/dL (11.7-16.9) L 10/18/17 05:25 Hct 30.6 % (35.4-49) L 10/18/17 05:25 MCV 79.6 fl (80-96) L 10/18/17 05:25 MCH 25.4 pg (25.7-33.7) L 10/18/17 05:25 MCHC 31.8 g/dl (32.0-35.9) L 10/18/17 05:25 RDW 24.1 % (11.9-15.9) H 10/18/17 05:25 Plt Count 90 K/MM3 (134-434) L 10/18/17 05:25 MPV 9.2 fl (7.5-11.1) 10/18/17 05:25 Neutrophils % 60.6 % (42.8-82.8) 10/14/17 06:00 Lymphocytes % 18.5 % (8-40) 10/14/17 06:00 Monocytes % 11.2 % (3.8-10.2) H 10/14/17 06:00 Eosinophils % 7.8 % (0-4.5) H 10/14/17 06:00 Basophils % 1.9 % (0-2.0) 10/14/17 06:00 Hypochromia 0 10/18/17 05:25 Platelet Estimate Decreased 10/14/17 06:00 Platelet Comment 10/11/17 Unknown Polychromasia 0 10/18/17 05:25 Poikilocytosis 0 10/18/17 05:25 Anisocytosis 3+ 10/18/17 05:25 Microcytosis 2+ 10/18/17 05:25 Macrocytosis 0 10/18/17 05:25 Target Cells Few 10/14/17 06:00 Ovalocytes 1+ 10/11/17 Unknown PT with INR 16.90 SEC (9.98-11.88) H 10/15/17 08:40 INR 1.50 (0.82-1.09) H 10/15/17 08:40 PTT (Actin FS) 28.3 SECONDS (26.9-34.4) 10/15/17 08:40 Sodium 131 mmol/L (136-145) L 10/18/17 05:25 Potassium 3.2 mmol/L (3.5-5.1) L 10/18/17 05:25 Chloride 91 mmol/L (98-107) L 10/18/17 05:25 Carbon Dioxide 31 mmol/L (21-32) 10/18/17 05:25 Anion Gap 9 (8-16) 10/18/17 05:25 BUN 45 mg/dL (7-18) H 10/18/17 05:25 Creatinine 1.8 mg/dL (0.7-1.3) H 10/18/17 05:25 Creat Clearance w eGFR 33.70 (>60) 10/17/17 07:05 Random Glucose 92 mg/dL (74-106) 10/18/17 05:25 Calcium 9.0 mg/dL (8.5-10.1) 10/18/17 05:25 Phosphorus 4.4 mg/dL (2.5-4.9) 10/18/17 05:25 Magnesium 2.6 mg/dL (1.8-2.4) H 10/18/17 05:25 Iron 37 ug/dL (38-169) L 10/14/17 06:00 TIBC 372 ug/dL (250-450) 10/14/17 06:00 Iron Saturation 10 % (15-55) L 10/14/17 06:00 Ferritin 27.415 ng/ml (16.4-293.9) 10/14/17 06:00 Total Bilirubin 1.3 mg/dL (0.2-1.0) H D 10/17/17 07:05 AST 24 U/L (15-37) 10/17/17 07:05 ALT 13 U/L (12-78) 10/17/17 07:05 Alkaline Phosphatase 119 U/L (45-117) H 10/17/17 07:05 Creatine Kinase 49 IU/L (39-308) 10/11/17 Unknown Troponin I 0.03 ng/ml (0.00-0.05) 10/12/17 06:14 B-Natriuretic Peptide 93238.41 pg/ml (5-450) H 10/16/17 06:30 Total Protein 7.6 g/dl (6.4-8.2) 10/17/17 07:05 Albumin 3.8 g/dl (3.4-5.0) 10/17/17 07:05 Urine Color Ltyellow 10/11/17 19:08 Urine Appearance Clear 10/11/17 19:08 Urine pH 6.0 (5.0-8.0) 10/11/17 19:08 Ur Specific [place] 1.008 (1.001-1.035) 10/11/17 19:08 Urine Protein Negative (NEGATIVE) 10/11/17 19:08 Urine Glucose (UA) Negative (NEGATIVE) 10/11/17 19:08 Urine Ketones Negative (NEGATIVE) 10/11/17 19:08 Urine Blood Negative (NEGATIVE) 10/11/17 19:08 Urine Nitrite Negative (NEGATIVE) 10/11/17 19:08 Urine Bilirubin Negative (NEGATIVE) 10/11/17 19:08 Urine Urobilinogen Negative mg/dL (0.2-1.0) 10/11/17 19:08 Ur Leukocyte Esterase 3+ (NEGATIVE) H 10/11/17 19:08 Urine WBC (Auto) 64 /hpf (3-5) 10/11/17 19:08 Urine RBC (Auto) 2 /hpf (0-3) 10/11/17 19:08 Urine Bacteria Moderate /hpf (NONE SEEN) 10/11/17 19:08 - ....Imaging EKG: Other (tele: NSR, no events) Assessment/Plan Echo 10/31: mod LVE, severely decr LVSF (global). nl RV. mild-mod MR/TR. no pHTN IMPRESSION: 1. CHF, NYHA class III. 2. Severe LV systolic dysfunction. 3. Moderate Ascites. 4. S/p NSTEMI, s/p PCI/stenting. 5. S/p ICD. 6. CKD--baseline creatinine previously around 1.8-2.3 7. ILD/ COPD 8. Chronic anemia. 9. CAD/s/p CABG 10. Chronic vertigo. 11. Tricuspid regurgitation (on physical exam) 12. thrombocytopenia--counts presently down from prior baseline 13. anemia--counts stable RECOMMENDATIONS: -Receiving inotrope-assisted diuresis here. -CXR 10/16 (report and image reviewed): mild incr markings, no effusions, ? congestion vs chronic interstitial--worse vs 08/01, suspect congestion. -remains grossly very overloaded with severe JVD present. first standing wt done 10/16 = 185 lbs. pt refused standing wt today per RN. wt ranged 172-175 when here 06/30, was 181 on d/c 07/30. now agreeable to daily wt.s, follow trend -diuresing well, cont lasix 100 iv bid, cont metolazone 2.5 with dobutamine fixed dose (5mcg/kg/min) -monitor lytes, replete K and Mag to 4 and 2, respectively. -Continue carvedilol 12.5mg BID, spirono 25 qd. not on ALYCE, GFR 30s--defer. -no signs of cardiorenal syndrome--close creatinine f/u -pt has LBBB with QRS btw 120-130 msec. if pt willing, can consider upgrade of device to LACTATION NURSE/D if has only ICD in place presently (for sx control/qual of life) -CAD regimen: cont DAPT and BB per prior CAD tx (s/p PCI). no statin being given here--defer to dr huitron who returns 10/21 (? prior refusal/intolerance)
--- NOTE | 2017-10-18 12:11 | PN ---
Progress Note, Physician History of Present Illness: PULMONARY ALERT,FEELING BETTER,LESS DYSPNEIC,ON DOBUTAMINE DRIP,LOWER EXT EDEMA IMPROVING - Current Medication List Current Medications: Active Medications Albuterol Sulfate (Ventolin 0.083% Nebulizer Soln -) 1 amp NEB Q8H PRN PRN Reason: SHORT OF BREATH/WHEEZING Amoxicillin (Amoxicillin -) 500 mg PO BID [facility] Last Admin: 10/18/17 09:25 Dose: 500 mg Aspirin (Ecotrin -) 81 mg PO DAILY [facility] Last Admin: 10/18/17 09:25 Dose: 81 mg Carvedilol (Coreg -) 12.5 mg PO BID [facility] Last Admin: 10/18/17 09:25 Dose: 12.5 mg Clopidogrel Bisulfate (Plavix -) 75 mg PO AM [facility] Last Admin: 10/18/17 06:31 Dose: 75 mg Furosemide (Lasix Injection -) 100 mg IVPUSH BIDLASIX [facility] Last Admin: 10/18/17 06:33 Dose: 100 mg Guaifenesin (Mucinex -) 600 mg PO BID [facility] Last Admin: 10/18/17 09:25 Dose: 600 mg Dobutamine HCl/Dextrose (Dobutamine 250 Mg/D5w -) 250,000 mcg in 250 mls @ 25.256 mls/hr IV TITR [facility] PRN Reason: 5 MCG/KG/MIN Last Admin: 10/18/17 05:35 Dose: 5 mcg/kg/min, 25.256 mls/hr Melatonin (Melatonin) 3 mg PO HS [facility] Last Admin: 10/17/17 22:52 Dose: 3 mg Metolazone (Zaroxolyn -) 2.5 mg PO DAILY@0530 [facility] Last Admin: 10/18/17 05:34 Dose: 2.5 mg Polyethylene Glycol (Miralax (For Daily Use) -) 17 gm PO DAILY [facility] Last Admin: 10/18/17 09:28 Dose: Not Given Potassium Chloride (K-Dur -) 40 meq PO ONCE ONE Stop: 10/18/17 14:01 Spironolactone (Aldactone -) 25 mg PO DAILY [facility] Last Admin: 10/18/17 09:25 Dose: 25 mg - Objective Vital Signs: Vital Signs Temperature 97.9 F 10/18/17 09:23 Pulse Rate 72 10/18/17 09:23 Respiratory Rate 20 10/18/17 09:23 Blood Pressure 115/64 10/18/17 09:23 O2 Sat by Pulse Oximetry (%) 94 L 10/18/17 08:00 Constitutional: Yes: Calm, Thin Eyes: Yes: WNL HENT: Yes: WNL Neck: Yes: WNL Cardiovascular: Yes: Regular Rate and Rhythm, S1, S2 Respiratory: Yes: Rales (TUYET CRACKLES) Gastrointestinal: Yes: Normal Bowel Sounds, Soft Extremities: Yes: WNL Edema: Yes Labs: CBC, BMP 10/18/17 05:25 10/18/17 05:25 INR, PTT INR 1.50 (0.82-1.09) H 10/15/17 08:40 Assessment/Plan 1) CHF (congestive heart failure) Code(s): I50.9 - HEART FAILURE, UNSPECIFIED Qualifiers: Congestive heart failure type: unspecified congestive heart failure type Congestive heart failure chronicity: chronic Qualified Code(s): I50.9 - Heart failure, unspecified (2) Acute exacerbation of CHF (congestive heart failure) Code(s): I50.9 - HEART FAILURE, UNSPECIFIED (3) Anxiety Code(s): F41.9 - ANXIETY DISORDER, UNSPECIFIED (4) COPD (chronic obstructive pulmonary disease) Code(s): J44.9 - CHRONIC OBSTRUCTIVE PULMONARY DISEASE, UNSPECIFIED (5) Chronic mastoiditis, bilateral Code(s): H70.13 - CHRONIC MASTOIDITIS, BILATERAL (6) Compliance poor Code(s): Z91.19 - PATIENT'S NONCOMPLIANCE W OTH MEDICAL TREATMENT AND REGIMEN Assessment/Plan BETA-BLOCKERS DIURETICS O2 BRONCHODILATORS DAILY WEIGHT ABX DOBUTAMINE DRIP DR ANGELA
--- NOTE | 2017-10-18 20:26 | PN ---
Physical Exam: SUBJECTIVE: Patient seen and examined earlier in morning today. No new complaints today; no acute events on the monitor or per pt. Continues to have multiple episodes of voiding without problems. OBJECTIVE: Vital Signs Period Temp Pulse Resp BP Sys/العلي Pulse Ox Last 24 Hr 97.4 F-98.3 F 71-78 16-20 112-136/57-70 94-97 GENERAL: NAD, awake, alert, and fully oriented, sitting in chair covered with blankets HEENT: NC/AT, sclera anicteric, EOMI, SIMON, + b/l JVD appreciated, no bruits upon auscultation LUNGS: Bibasilar rales noted, no wheezes, or rhonchi. No accessory muscle use. On 4LNC HEART: RRR, S1, S2 without murmur appreciated ABDOMEN: Soft, nontender, distended, distant normoactive bowel sounds, no guarding, no hepatomegaly, + hepatojugular reflux EXTREMITIES: 2+ DP pulses, warm, well-perfused, 1+ edema noted to upper lower extremities b/l NEUROLOGICAL: Cranial nerves II through XII grossly intact. Normal speech, gait not observed. PSYCH: Normal mood, normal affect. SKIN: Warm, dry, no rashes or lesions noted Laboratory Results - last 24 hr 10/18/17 10/18/17 05:25 05:25 WBC 5.6 RBC 3.84 L Hgb 9.7 L Hct 30.6 L MCV 79.6 L MCH 25.4 L MCHC 31.8 L RDW 24.1 H Plt Count 90 L MPV 9.2 Hypochromia 0 Polychromasia 0 Poikilocytosis 0 Anisocytosis 3+ Microcytosis 2+ Macrocytosis 0 Sodium 131 L Potassium 3.2 L Chloride 91 L Carbon Dioxide 31 Anion Gap 9 BUN 45 H Creatinine 1.8 H Random Glucose 92 Calcium 9.0 Phosphorus 4.4 Magnesium 2.6 H Active Medications Generic Name Dose Route Start Last Admin Trade Name Freq PRN Reason Stop Dose Admin Albuterol Sulfate 1 amp 10/15/17 17:11 Ventolin 0.083% Nebulizer Soln - NEB Q8H PRN SHORT OF BREATH/WHEEZING Amoxicillin 500 mg 10/18/17 22:00 Amoxicillin - PO 10/18/17 22:01 ONCE ONE Aspirin 81 mg 10/16/17 10:00 10/18/17 09:25 Ecotrin - PO 81 mg DAILY JEREMÍAS Administration Carvedilol 12.5 mg 10/17/17 22:00 10/18/17 09:25 Coreg - PO 12.5 mg BID JEREMÍAS Administration Clopidogrel Bisulfate 75 mg 10/16/17 07:00 10/18/17 06:31 Plavix - PO 75 mg AM JEREMÍAS Administration Furosemide 100 mg 10/17/17 14:29 10/18/17 13:47 Lasix Injection - IVPUSH 100 mg BIDLASIX JEREMÍAS Administration Guaifenesin 600 mg 10/15/17 22:00 10/18/17 09:25 Mucinex - PO 600 mg BID JEREMÍAS Administration Dobutamine HCl/Dextrose 250,000 mcg in 250 mls @ 25.256 mls/hr 10/17/17 13:15 10/18/17 18:41 Dobutamine 250 Mg/D5w - IV 5 mcg/kg/min TITR JEREMÍAS 25.256 mls/hr 5 MCG/KG/MIN Administration Melatonin 3 mg 10/15/17 22:00 10/17/17 22:52 Melatonin PO 3 mg HS JEREMÍAS Administration Metolazone 2.5 mg 10/15/17 16:30 10/18/17 05:34 Zaroxolyn - PO 2.5 mg DAILY@0530 JEREMÍAS Administration Polyethylene Glycol 17 gm 10/16/17 10:00 10/18/17 09:28 Miralax (For Daily Use) - PO Not Given DAILY [facility] Spironolactone 25 mg 10/16/17 10:00 10/18/17 09:25 Aldactone - PO 25 mg DAILY JEREMÍAS Administration ASSESSMENT/PLAN: 1) Acute on chronic systolic CHF exacerbation --NYHA Class II --Lasix 100mg IVP BID continued --Most recent echo 05/2017: LV systolic function severely decreased with LV dilation and global hypokinesis; LA enlargement; Mod MR; mild --Strict I&O's --[place] catheter in place --Daily weights --Continue Aldactone 25mg qDaily PO --Coreg to 12.5mg BID tolerated well --Cardiology consulted --Zeroxlyn to continue --Dobutamine doses to continue --Good output with lasix as a result 2) Abdominal distention --Abdominal US revealed moderate ascites noted --See above for diuretic use 3) UTI --Urine cultures reviewed with sensitivities --Amoxicillin 500mg BID due to susceptibility of enterococcus day 04/19; will d /c 4) CAD --Continue Plavix 75mg qDaily --Continue Lipitor 10mg HS --ASA 81mg qdaily 5) Pre-diabetes --Diet controlled --diabetic/sodium controlled diet --Last A1c 6.5 6) CKD --Most likely 2/2 cardiorenal syndrome --Cr at baseline (2.1) --Avoid nephrotoxic agents --Trend BMP FEN Fluids: Avoid due to hypervolemic state Electrolyte Abnormalities: Hypokalemia; repleted with 40mEq Kdur Nutrition: Sodium controlled, diabetic diet PPX DVT - mod risk - SCDs Dispo: continue tele floor Case discussed with Dr. Sonny Joyner, DO - Internal Medicine PGY-1 Visit type - Emergency Visit Emergency Visit: No - New Patient This patient is new to me today: No - Critical Care Critical Care patient: No
[2017-10-18] MEDS ORDERED: MELATONIN 5 MG TABLETS PO ONE (21:29)
[2017-10-18] MEDS ORDERED: AMOXICILLIN 500 MG CAPSULE (FP) PO ONE (22:00)
[2017-10-18] MEDS: MELATONIN 1 MG TABLET PO SCH (22:49)
[2017-10-19] MEDS ORDERED: PT OWN MED DRAWER 7, Y5N ONE ×4 (05:38→22:16)
[2017-10-19] MEDS: METOLAZONE 2.5 MG TABLET (FP) PO SCH (05:49)
[2017-10-19] MEDS: CLOPIDOGREL BISULFATE 75 MG TABLET (FP) PO SCH (06:34)
[2017-10-19] MEDS: FUROSEMIDE 40 MG/4 ML INJECTABLE VIAL IVPUSH SCH ×2 (06:34→15:24)
[2017-10-19 08:27] LABS: HEMATOCRIT 31.2 % (35.4-49); MCH 25.3 pg (25.7-33.7); MEAN PLT VOLUME 9.2 fl (7.5-11.1); PLATELET COUNT 93 K/MM3 (134-434); RBC 3.94 M/mm3 (4.00-5.60); RDW 23.9 % (11.9-15.9); WHITE BLOOD COUNT 5.2 K/mm3 (4.0-10.0)
[2017-10-19 08:48] LABS: ANION GAP 11 (8-16); BLOOD UREA NITROGEN 46 mg/dL (7-18); CHLORIDE 88 mmol/L (98-107); CO2 34 mmol/L (21-32); GLUCOSE,RANDOM 87 mg/dL (74-106); POTASSIUM 3.3 mmol/L (3.5-5.1); SODIUM 133 mmol/L (136-145)
[2017-10-19 08:50] LABS: CREATININE 1.7 mg/dL (0.7-1.3)
[2017-10-19] MEDS: POTASSIUM CHLORIDE TABS 20 MEQ TABLET.ER (FP) PO SCH ×3 (10:44→22:27)
[2017-10-19] MEDS: guaiFENesin 600 MG TABLET.ER (FP) PO SCH ×2 (10:45→22:20)
[2017-10-19] MEDS: ASPIRIN COATED 81 MG TABLET.EC PO SCH (10:45)
[2017-10-19] MEDS: POLYETHYLENE GLYCOL 3350 119 GM BTL PO SCH (10:45)
[2017-10-19] MEDS: CARVEDILOL 12.5 MG TABLET (FP) PO SCH ×2 (10:45→22:20)
[2017-10-19] MEDS: SPIRONOLACTONE 25 MG TABLET (FP) PO SCH (10:45)
--- NOTE | 2017-10-19 10:55 | PN ---
Teaching Attending Note Name of Resident: . ATTENDING PHYSICIAN STATEMENT Time of evaluation: 9:00 AM I saw and evaluated the patient. I reviewed the resident's note and discussed the case with the resident. I agree with the resident's findings and plan as documented. SUBJECTIVE: Patient seen and examined. Breathing improved, leg swelling markedly improved, overall feels better, asking for a sleeping pill. OBJECTIVE: Vital Signs Period Temp Pulse Resp BP Sys/العلي Pulse Ox Last 24 Hr 97.8 F-98.8 F 71-76 19-20 105-140/55-68 96 Intake & Output 10/16/17 10/17/17 10/18/17 10/19/17 23:59 23:59 23:59 23:59 Intake Total 1150 1460 630 330 Output Total 3320 2650 5300 1100 Balance -2170 -1190 -4670 -770 Weight 185 lb 9.6 oz 172 lb 6.4 oz 165 lb 8 oz General: lying in bed more flat than yesterday, no acute distress CVS:S1S2 regular Chest: Few basilar rales, improved air entry and exam Neck: improved neck vein distention Extremities: markedly improved bilateral pedal pitting edema Home Medication List Medication Instructions Recorded Confirmed Type Simvastatin 20 mg PO HS 06/10/17 10/11/17 History Potassium Chloride 20 meq PO DAILY 06/27/17 10/11/17 History Carvedilol 6.25 mg PO HS 08/01/17 10/11/17 History Meclizine HCl [Antivert -] 12.5 mg PO TID PRN 08/01/17 10/11/17 History Melatonin 3 mg PO DAILY 09/23/17 10/11/17 History Active Medications Generic Name Dose Route Start Last Admin Trade Name Freq PRN Reason Stop Dose Admin Albuterol Sulfate 1 amp 10/15/17 17:11 Ventolin 0.083% Nebulizer Soln - NEB Q8H PRN SHORT OF BREATH/WHEEZING Aspirin 81 mg 10/16/17 10:00 10/19/17 10:45 Ecotrin - PO 81 mg DAILY JEREMÍAS Administration Carvedilol 12.5 mg 10/17/17 22:00 10/19/17 10:45 Coreg - PO 12.5 mg BID JEREMÍAS Administration Clopidogrel Bisulfate 75 mg 10/16/17 07:00 10/19/17 06:34 Plavix - PO 75 mg AM JEREMÍAS Administration Furosemide 100 mg 10/17/17 14:29 10/19/17 06:34 Lasix Injection - IVPUSH 100 mg BIDLASIX JEREMÍAS Administration Guaifenesin 600 mg 10/15/17 22:00 10/19/17 10:45 Mucinex - PO 600 mg BID JEREMÍAS Administration Dobutamine HCl/Dextrose 250,000 mcg in 250 mls @ 25.256 mls/hr 10/17/17 13:15 10/18/17 18:41 Dobutamine 250 Mg/D5w - IV 5 mcg/kg/min TITR JEREMÍAS 25.256 mls/hr 5 MCG/KG/MIN Administration Melatonin 3 mg 10/15/17 22:00 10/18/17 22:49 Melatonin PO Not Given HS JEREMÍAS Metolazone 2.5 mg 10/15/17 16:30 10/19/17 05:49 Zaroxolyn - PO 2.5 mg DAILY@0530 JER[facility] Administration Polyethylene Glycol 17 gm 10/16/17 10:00 10/19/17 10:45 Miralax (For Daily Use) - PO Not Given DAILY JER[facility]ÍAS Potassium Chloride 40 meq 10/19/17 10:00 10/19/17 10:44 K-Dur - PO 40 meq BID JEREMÍAS Administration Spironolactone 25 mg 10/16/17 10:00 10/19/17 10:45 Aldactone - PO 25 mg DAILY JEREMÍAS Administration Laboratory Results - last 24 hr 10/18/17 10/19/17 10/19/17 05:25 05:25 05:25 WBC 5.2 RBC 3.94 L Hgb 10.0 L Hct 31.2 L MCV 79.0 L MCH 25.3 L MCHC 32.0 RDW 23.9 H Plt Count 93 L MPV 9.2 Hypochromia 0 Polychromasia 0 Poikilocytosis 0 Anisocytosis 3+ Microcytosis 2+ Macrocytosis 0 Sodium 133 L Potassium 3.3 L Chloride 88 L Carbon Dioxide 34 H Anion Gap 11 BUN 46 H Creatinine 1.7 H Random Glucose 87 Calcium 9.0 Microbiology 10/12/17 14:48 Urine - Urine Clean Catch Urine Culture - Final Enterococcus Faecalis ASSESSMENT AND PLAN: 87 year old man with a history of CAD s/p CABG & stents, chronic systolic heart failure s/p AICD, HTN, hyperlipidemia, CKD who presents to the ED with leg swelling. -Acute on chronic systolic heart failure exacerbation with anasarca -Severe ischemic cardiomyopathy -Acute on Chronic CKD suspect from poor perfusion and CHF -Ascitis, suspect from volume overload -Lower uncomplicated E. faecalis UTI -Hypokalemia -Thrombocytopenia -Normocytic anemia -CAD s/p [place]/CABG/Stents -HTN -Hyperlipiemia Plan Cardiology input noted. started on dobutamine drip 1/3 Marked improvement in urine output and volume status. Metolazone 2.5 mg daily. lasix 100 mg IV BID, strict I/Os Increased coreg to 12.5 mg BID, tolerating well. repeat 2D echo noted. Abdominal ultrasound with ascitis. Monitor lytes. Standing K supplementation Urine cultures noted, ceftriaxone, then amoxicillin, for total 7 days, completed 10/18.. Continue asa/plavix/zocor/aldactone. Renal function continues to improve SCDs for DVTPPX prognosis guarded given concerning cardiomyopathy with poor response to diuresis Continue telemetry monitoring. Newberry placed per patient preference. Encourage OOB, PT eval, dispo planning over the next 3-4 days. Plan discussed with patient in detail, all questions answered.
--- NOTE | 2017-10-19 11:00 | PN ---
Progress Note, Physician History of Present Illness: PULMONARY ALERT,FEELING BETTER,-RESP DISTRESS,REMAINS ON DOBUTAMINE DRIP,LASIX,ZAROXOLYN , + 20lb WT LOSS - Current Medication List Current Medications: Active Medications Albuterol Sulfate (Ventolin 0.083% Nebulizer Soln -) 1 amp NEB Q8H PRN PRN Reason: SHORT OF BREATH/WHEEZING Aspirin (Ecotrin -) 81 mg PO DAILY [facility] Last Admin: 10/19/17 10:45 Dose: 81 mg Carvedilol (Coreg -) 12.5 mg PO BID [facility] Last Admin: 10/19/17 10:45 Dose: 12.5 mg Clopidogrel Bisulfate (Plavix -) 75 mg PO AM [facility] Last Admin: 10/19/17 06:34 Dose: 75 mg Furosemide (Lasix Injection -) 100 mg IVPUSH BIDLASIX [facility] Last Admin: 10/19/17 06:34 Dose: 100 mg Guaifenesin (Mucinex -) 600 mg PO BID [facility] Last Admin: 10/19/17 10:45 Dose: 600 mg Dobutamine HCl/Dextrose (Dobutamine 250 Mg/D5w -) 250,000 mcg in 250 mls @ 25.256 mls/hr IV TITR [facility] PRN Reason: 5 MCG/KG/MIN Last Admin: 10/18/17 18:41 Dose: 5 mcg/kg/min, 25.256 mls/hr Melatonin (Melatonin) 3 mg PO HS [facility] Last Admin: 10/18/17 22:49 Dose: Not Given Metolazone (Zaroxolyn -) 2.5 mg PO DAILY@0530 [facility] Last Admin: 10/19/17 05:49 Dose: 2.5 mg Polyethylene Glycol (Miralax (For Daily Use) -) 17 gm PO DAILY [facility] Last Admin: 10/19/17 10:45 Dose: Not Given Potassium Chloride (K-Dur -) 40 meq PO BID [facility] Last Admin: 10/19/17 10:44 Dose: 40 meq Spironolactone (Aldactone -) 25 mg PO DAILY [facility] Last Admin: 10/19/17 10:45 Dose: 25 mg - Objective Vital Signs: Vital Signs Temperature 98.5 F 10/19/17 06:20 Pulse Rate 72 10/19/17 06:20 Respiratory Rate 20 10/19/17 06:20 Blood Pressure 140/67 10/19/17 06:20 O2 Sat by Pulse Oximetry (%) 96 10/18/17 21:00 Constitutional: Yes: Well Nourished, Calm Eyes: Yes: WNL HENT: Yes: WNL Neck: Yes: WNL Cardiovascular: Yes: Regular Rate and Rhythm, S1, S2 Respiratory: Yes: Rales (BIBASILAR RALES) Gastrointestinal: Yes: Normal Bowel Sounds, Soft Extremities: Yes: WNL Edema: LLE: Trace, RLE: Trace Labs: CBC, BMP 10/19/17 05:25 10/19/17 05:25 INR, PTT INR 1.50 (0.82-1.09) H 10/15/17 08:40 Assessment/Plan 1) CHF (congestive heart failure) Code(s): I50.9 - HEART FAILURE, UNSPECIFIED Qualifiers: Congestive heart failure type: unspecified congestive heart failure type Congestive heart failure chronicity: chronic Qualified Code(s): I50.9 - Heart failure, unspecified (2) Acute exacerbation of CHF (congestive heart failure) Code(s): I50.9 - HEART FAILURE, UNSPECIFIED (3) Anxiety Code(s): F41.9 - ANXIETY DISORDER, UNSPECIFIED (4) COPD (chronic obstructive pulmonary disease) Code(s): J44.9 - CHRONIC OBSTRUCTIVE PULMONARY DISEASE, UNSPECIFIED (5) Chronic mastoiditis, bilateral Code(s): H70.13 - CHRONIC MASTOIDITIS, BILATERAL (6) Compliance poor Code(s): Z91.19 - PATIENT'S NONCOMPLIANCE W OTH MEDICAL TREATMENT AND REGIMEN Assessment/Plan BETA-BLOCKERS DIURETICS O2 BRONCHODILATORS DAILY WEIGHT CONTINUE DOBUTAMINE DRELY ANGELA
--- NOTE | 2017-10-19 11:10 | PN ---
Progress Note (short form) - Note Progress Note: Chief Complaint: fluid/edema History of Present Illness: (being seen for Dr. Huitron) le edema better today, sob minimal denies cp/heaviness, palpitations, syncope remote ex-cigs - Current Medication List Current Medications Generic Name Dose Route Start Last Admin Trade Name Freq PRN Reason Stop Dose Admin Albuterol Sulfate 1 amp 10/15/17 17:11 Ventolin 0.083% Nebulizer Soln - NEB Q8H PRN SHORT OF BREATH/WHEEZING Aspirin 81 mg 10/16/17 10:00 10/19/17 10:45 Ecotrin - PO 81 mg DAILY JEREMÍAS Administration Carvedilol 12.5 mg 10/17/17 22:00 10/19/17 10:45 Coreg - PO 12.5 mg BID JEREMÍAS Administration Clopidogrel Bisulfate 75 mg 10/16/17 07:00 10/19/17 06:34 Plavix - PO 75 mg AM JEREMÍAS Administration Furosemide 100 mg 10/17/17 14:29 10/19/17 06:34 Lasix Injection - IVPUSH 100 mg BIDLASIX JEREMÍAS Administration Guaifenesin 600 mg 10/15/17 22:00 10/19/17 10:45 Mucinex - PO 600 mg BID JEREMÍAS Administration Dobutamine HCl/Dextrose 250,000 mcg in 250 mls @ 25.256 mls/hr 10/17/17 13:15 10/18/17 18:41 Dobutamine 250 Mg/D5w - IV 5 mcg/kg/min TITR JEREMÍAS 25.256 mls/hr 5 MCG/KG/MIN Administration Melatonin 3 mg 10/15/17 22:00 10/18/17 22:49 Melatonin PO Not Given HS JEREMÍAS Metolazone 2.5 mg 10/15/17 16:30 10/19/17 05:49 Zaroxolyn - PO 2.5 mg DAILY@0530 JEREMÍAS Administration Polyethylene Glycol 17 gm 10/16/17 10:00 10/19/17 10:45 Miralax (For Daily Use) - PO Not Given DAILY JEREMÍAS Potassium Chloride 40 meq 10/19/17 10:00 10/19/17 10:44 K-Dur - PO 40 meq BID JEREMÍAS Administration Spironolactone 25 mg 10/16/17 10:00 10/19/17 10:45 Aldactone - PO 25 mg DAILY JEREMÍAS Administration - Objective Vital Signs: Vital Signs Temp 98.5 F 10/19/17 06:20 Pulse 72 10/19/17 06:20 Resp 20 10/19/17 06:20 BP 140/67 10/19/17 06:20 Pulse Ox 96 10/18/17 21:00 Intake & Output 10/18/17 10/18/17 10/19/17 11:59 23:59 11:59 Intake Total 450 180 330 Output Total 1700 3600 1100 Balance -1250 -3420 -770 Weight 172 lb 6.4 oz 165 lb 8 oz Intake: IV 330 330 DOBUTAMINE 250 MG/D5W - 300 300 250,000 mcg In 250 ml @ 5 MCG/KG/MIN 25.256 mls/hr IV TITR JEREMÍAS Rx#: [id number] 22 10/14/2017 30 30 Oral 120 180 Output: Urine 1700 3600 1100 [place] 1700 3600 1100 Other: Voiding Method Urinal Indwelling Catheter Indwelling Catheter # Unmeasured Voids [place] 1 Bowel Movement No Yes # Bowel Movements 1 Weight Measurement Method Standing Scale Standing Scale Constitutional: Yes: No Distress, Calm Eyes: No: Sclera Icterus HENT: No: Nasal Congestion Cardiovascular: Yes: Regular Rate and Rhythm (soft sounds), JVD (+8cm at 90 degrees), S1, S2, Other (PMI non diplaced). No: Gallop, Murmur Respiratory: Yes: CTA Bilaterally. No: Accessory Muscle Use, Rales, Wheezes Gastrointestinal: Yes: Normal Bowel Sounds, Soft. No: Tenderness Musculoskeletal: Yes: Other (No kyphosis) Extremities: No: Cold Edema: Yes (1+ thighs, 1+ pretib) Integumentary: No: Jaundice Neurological: Yes: Alert, Oriented (x3) Psychiatric: No: Agitated Labs: Laboratory Last Values WBC 5.2 K/mm3 (4.0-10.0) 10/19/17 05:25 RBC 3.94 M/mm3 (4.00-5.60) L 10/19/17 05:25 Hgb 10.0 GM/dL (11.7-16.9) L 10/19/17 05:25 Hct 31.2 % (35.4-49) L 10/19/17 05:25 MCV 79.0 fl (80-96) L 10/19/17 05:25 MCH 25.3 pg (25.7-33.7) L 10/19/17 05:25 MCHC 32.0 g/dl (32.0-35.9) 10/19/17 05:25 RDW 23.9 % (11.9-15.9) H 10/19/17 05:25 Plt Count 93 K/MM3 (134-434) L 10/19/17 05:25 MPV 9.2 fl (7.5-11.1) 10/19/17 05:25 Neutrophils % 60.6 % (42.8-82.8) 10/14/17 06:00 Lymphocytes % 18.5 % (8-40) 10/14/17 06:00 Monocytes % 11.2 % (3.8-10.2) H 10/14/17 06:00 Eosinophils % 7.8 % (0-4.5) H 10/14/17 06:00 Basophils % 1.9 % (0-2.0) 10/14/17 06:00 Hypochromia 0 10/18/17 05:25 Platelet Estimate Decreased 10/14/17 06:00 Platelet Comment 10/11/17 Unknown Polychromasia 0 10/18/17 05:25 Poikilocytosis 0 10/18/17 05:25 Anisocytosis 3+ 10/18/17 05:25 Microcytosis 2+ 10/18/17 05:25 Macrocytosis 0 10/18/17 05:25 Target Cells Few 10/14/17 06:00 Ovalocytes 1+ 10/11/17 Unknown PT with INR 16.90 SEC (9.98-11.88) H 10/15/17 08:40 INR 1.50 (0.82-1.09) H 10/15/17 08:40 PTT (Actin FS) 28.3 SECONDS (26.9-34.4) 10/15/17 08:40 Sodium 133 mmol/L (136-145) L 10/19/17 05:25 Potassium 3.3 mmol/L (3.5-5.1) L 10/19/17 05:25 Chloride 88 mmol/L (98-107) L 10/19/17 05:25 Carbon Dioxide 34 mmol/L (21-32) H 01/06/18 05:25 Anion Gap 11 (8-16) 10/19/17 05:25 BUN 46 mg/dL (7-18) H 10/19/17 05:25 Creatinine 1.7 mg/dL (0.7-1.3) H 10/19/17 05:25 Creat Clearance w eGFR 33.70 (>60) 10/17/17 07:05 Random Glucose 87 mg/dL (74-106) 10/19/17 05:25 Calcium 9.0 mg/dL (8.5-10.1) 10/19/17 05:25 Phosphorus 4.4 mg/dL (2.5-4.9) 10/18/17 05:25 Magnesium 2.6 mg/dL (1.8-2.4) H 10/18/17 05:25 Iron 37 ug/dL (38-169) L 10/14/17 06:00 TIBC 372 ug/dL (250-450) 10/14/17 06:00 Iron Saturation 10 % (15-55) L 10/14/17 06:00 Ferritin 27.415 ng/ml (16.4-293.9) 10/14/17 06:00 Total Bilirubin 1.3 mg/dL (0.2-1.0) H D 10/17/17 07:05 AST 24 U/L (15-37) 10/17/17 07:05 ALT 13 U/L (12-78) 10/17/17 07:05 Alkaline Phosphatase 119 U/L (45-117) H 10/17/17 07:05 Creatine Kinase 49 IU/L (39-308) 10/11/17 Unknown Troponin I 0.03 ng/ml (0.00-0.05) 10/12/17 06:14 B-Natriuretic Peptide 05592.41 pg/ml (5-450) H 10/16/17 06:30 Total Protein 7.6 g/dl (6.4-8.2) 10/17/17 07:05 Albumin 3.8 g/dl (3.4-5.0) 10/17/17 07:05 Urine Color Ltyellow 10/11/17 19:08 Urine Appearance Clear 10/11/17 19:08 Urine pH 6.0 (5.0-8.0) 10/11/17 19:08 Ur Specific [place] 1.008 (1.001-1.035) 10/11/17 19:08 Urine Protein Negative (NEGATIVE) 10/11/17 19:08 Urine Glucose (UA) Negative (NEGATIVE) 10/11/17 19:08 Urine Ketones Negative (NEGATIVE) 10/11/17 19:08 Urine Blood Negative (NEGATIVE) 10/11/17 19:08 Urine Nitrite Negative (NEGATIVE) 10/11/17 19:08 Urine Bilirubin Negative (NEGATIVE) 10/11/17 19:08 Urine Urobilinogen Negative mg/dL (0.2-1.0) 10/11/17 19:08 Ur Leukocyte Esterase 3+ (NEGATIVE) H 10/11/17 19:08 Urine WBC (Auto) 64 /hpf (3-5) 10/11/17 19:08 Urine RBC (Auto) 2 /hpf (0-3) 10/11/17 19:08 Urine Bacteria Moderate /hpf (NONE SEEN) 10/11/17 19:08 - ....Imaging EKG: Other (tele: NSR) Assessment/Plan Echo 10/31: mod LVE, severely decr LVSF (global). nl RV. mild-mod MR/TR. no pHTN IMPRESSION: 1. CHF, NYHA class III. 2. Severe LV systolic dysfunction. 3. Moderate Ascites. 4. S/p NSTEMI, s/p PCI/stenting. 5. S/p ICD. 6. CKD--baseline creatinine previously around 1.8-2.3 7. ILD/ COPD 8. Chronic anemia. 9. CAD/s/p CABG 10. Chronic vertigo. 11. Tricuspid regurgitation (on physical exam) 12. thrombocytopenia--counts presently down from prior baseline 13. anemia--counts stable RECOMMENDATIONS: -Receiving inotrope-assisted diuresis here. -CXR 10/16 (report and image reviewed): mild incr markings, no effusions, ? congestion vs chronic interstitial--worse vs 08/01, suspect congestion. -remains grossly very overloaded but improving with diuresis -wt continues to trend down, cr stable -diuresing well, cont lasix 100 iv bid, cont metolazone 2.5 with dobutamine fixed dose (5mcg/kg/min) -monitor lytes, replete K and Mag to 4 and 2, respectively. -Continue carvedilol 12.5mg BID, spirono 25 qd. not on ALYCE, GFR 30s--defer. -no signs of cardiorenal syndrome--close creatinine f/u -pt has LBBB with QRS btw 120-130 msec. if pt willing, can consider upgrade of device to CURRICULUM WRITER/D if has only ICD in place presently (for sx control/qual of life) -CAD regimen: cont DAPT and BB per prior CAD tx (s/p PCI). no statin being given here--defer to dr huitron who returns 10/21 (? prior refusal/intolerance)
[2017-10-19] MEDS: MELATONIN 1 MG TABLET PO SCH (22:20)
[2017-10-19] MEDS: ALPRAZolam 0.25 MG TABLET PO PRN (22:20)
[2017-10-20] MEDS: METOLAZONE 2.5 MG TABLET (FP) PO SCH (06:00)
[2017-10-20] MEDS: FUROSEMIDE 40 MG/4 ML INJECTABLE VIAL IVPUSH SCH ×2 (06:57→15:49)
[2017-10-20] MEDS: CLOPIDOGREL BISULFATE 75 MG TABLET (FP) PO SCH (07:10)
[2017-10-20 07:43] LABS: ALBUMIN 3.5 g/dl (3.4-5.0); ANION GAP 9 (8-16); BILIRUBIN,TOTAL 1.1 mg/dL (0.2-1.0); BLOOD UREA NITROGEN 45 mg/dL (7-18); CALCIUM 8.7 mg/dL (8.5-10.1); CHLORIDE 86 mmol/L (98-107); CO2 35 mmol/L (21-32); GLUCOSE,RANDOM 86 mg/dL (74-106); MAGNESIUM 2.5 mg/dL (1.8-2.4); PHOSPHOROUS 4.7 mg/dL (2.5-4.9); SODIUM 130 mmol/L (136-145); TOT PROT 7.2 g/dl (6.4-8.2)
[2017-10-20 07:46] LABS: ALK PHOS 100 U/L (45-117); CREATININE 1.9 mg/dL (0.7-1.3); SGOT/AST 14 U/L (15-37); SGPT/ALT 11 U/L (12-78)
[2017-10-20] MEDS ORDERED: POTASSIUM CHLORIDE TABS 20 MEQ TABLET.ER (FP) PO ONE (08:07)
--- NOTE | 2017-10-20 10:30 | PN ---
Teaching Attending Note Name of Resident: . ATTENDING PHYSICIAN STATEMENT SUBJECTIVE: Patient seen and examined. breathing and swelling markedly improved, overall feels better. No new complaints. OBJECTIVE: Vital Signs Period Temp Pulse Resp BP Sys/العلي Pulse Ox Last 24 Hr 97.6 F-98.8 F 68-96 18-20 108-131/53-66 97 Intake & Output 10/17/17 10/18/17 10/19/17 10/20/17 23:59 23:59 23:59 23:59 Intake Total 1460 630 690 Output Total 2650 5300 4700 Balance -0672 -8117 -4010 Weight 172 lb 6.4 oz 165 lb 8 oz 157 lb 6.4 oz General: lying in bed in no acute distress CVS:S1S2 regular Chest: improved basilar rales and air entry Abdomen:soft, improved distension, NT Extremities: markedly improved pedal edema Home Medication List Medication Instructions Recorded Confirmed Type Simvastatin 20 mg PO HS 06/10/17 10/11/17 History Potassium Chloride 20 meq PO DAILY 06/27/17 10/11/17 History Carvedilol 6.25 mg PO HS 08/01/17 10/11/17 History Meclizine HCl [Antivert -] 12.5 mg PO TID PRN 08/01/17 10/11/17 History Melatonin 3 mg PO DAILY 09/23/17 10/11/17 History Active Medications Generic Name Dose Route Start Last Admin Trade Name Freq PRN Reason Stop Dose Admin Albuterol Sulfate 1 amp 10/15/17 17:11 Ventolin 0.083% Nebulizer Soln - NEB Q8H PRN SHORT OF BREATH/WHEEZING Alprazolam 0.5 mg 10/19/17 17:04 10/19/17 22:20 Xanax - PO 0.5 mg HS PRN Administration INSOMNIA Aspirin 81 mg 10/16/17 10:00 10/19/17 10:45 Ecotrin - PO 81 mg DAILY JEREMÍAS Administration Carvedilol 12.5 mg 10/17/17 22:00 10/19/17 22:20 Coreg - PO 12.5 mg BID JEREMÍAS Administration Clopidogrel Bisulfate 75 mg 10/16/17 07:00 10/20/17 07:10 Plavix - PO 75 mg AM JEREMÍAS Administration Furosemide 100 mg 10/17/17 14:29 10/20/17 06:57 Lasix Injection - IVPUSH 100 mg BIDLASIX JEREMÍAS Administration Guaifenesin 600 mg 10/15/17 22:00 10/19/17 22:20 Mucinex - PO 600 mg BID JEREMÍAS Administration Dobutamine HCl/Dextrose 250,000 mcg in 250 mls @ 25.256 mls/hr 10/17/17 13:15 10/20/17 07:07 Dobutamine 250 Mg/D5w - IV 4.25 mcg/kg/min TITR JEREMÍAS 21.5 mls/hr 5 MCG/KG/MIN Infusion Melatonin 3 mg 10/15/17 22:00 10/19/17 22:20 Melatonin PO 3 mg HS JEREMÍAS Administration Metolazone 2.5 mg 10/15/17 16:30 10/20/17 06:00 Zaroxolyn - PO 2.5 mg DAILY@0530 JEREMÍAS Administration Polyethylene Glycol 17 gm 10/16/17 10:00 10/19/17 10:45 Miralax (For Daily Use) - PO Not Given DAILY JEREMÍAS Potassium Chloride 40 meq 10/19/17 10:00 10/19/17 22:27 K-Dur - PO Not Given BID JEREMÍAS Spironolactone 25 mg 10/16/17 10:00 10/19/17 10:45 Aldactone - PO 25 mg DAILY JEREMÍAS Administration Laboratory Results - last 24 hr 10/20/17 05:25 Sodium 130 L Potassium 3.0 L Chloride 86 L Carbon Dioxide 35 H Anion Gap 9 BUN 45 H Creatinine 1.9 H Creat Clearance w eGFR 33.70 Random Glucose 86 Calcium 8.7 Phosphorus 4.7 Magnesium 2.5 H Total Bilirubin 1.1 H AST 14 L D ALT 11 L Alkaline Phosphatase 100 Total Protein 7.2 Albumin 3.5 ASSESSMENT AND PLAN: 87 year old man with a history of CAD s/p CABG & stents, chronic systolic heart failure s/p AICD, HTN, hyperlipidemia, CKD who presents to the ED with leg swelling. -Acute on chronic systolic heart failure exacerbation with anasarca -Severe ischemic cardiomyopathy -Acute on Chronic CKD suspect from poor perfusion and CHF -Ascitis, suspect from volume overload -Lower uncomplicated E. faecalis UTI -Hypokalemia -Thrombocytopenia -Normocytic anemia -CAD s/p CA/CABG/Stents -HTN -Hyperlipiemia Plan Cardiology input noted. started on dobutamine drip 1/3 Marked improvement in urine output and volume status. Metolazone 2.5 mg daily. lasix 100 mg IV BID, strict I/Os Increased coreg to 12.5 mg BID, tolerating well. repeat 2D echo noted. Abdominal ultrasound with ascitis, exam improved. Discussed with Dr. Stone, taper dobutamine/Lasix in 24 hours Monitor lytes. Standing K supplementation Urine cultures noted, ceftriaxone, then amoxicillin, for total 7 days, completed 10/18.. Continue asa/plavix/zocor/aldactone. Renal function continues to improve SCDs for DVTPPX Continue telemetry monitoring. Newberry placed per patient preference. Encourage OOB, PT eval, dispo planning , anticipate by Saturday if off dobutamine drip and volume status better. Plan discussed with patient in detail, all questions answered.
--- NOTE | 2017-10-20 11:03 | PN ---
Progress Note (short form) - Note Progress Note: Chief Complaint: fluid/edema History of Present Illness: (being seen for Dr. Huitron) le edema better, sob minimal denies cp/heaviness, palpitations, syncope remote ex-cigs - Current Medication List Current Medications Generic Name Dose Route Start Last Admin Trade Name Freq PRN Reason Stop Dose Admin Albuterol Sulfate 1 amp 10/15/17 17:11 Ventolin 0.083% Nebulizer Soln - NEB Q8H PRN SHORT OF BREATH/WHEEZING Alprazolam 0.5 mg 10/19/17 17:04 10/19/17 22:20 Xanax - PO 0.5 mg HS PRN Administration INSOMNIA Aspirin 81 mg 10/16/17 10:00 10/19/17 10:45 Ecotrin - PO 81 mg DAILY JEREMÍAS Administration Carvedilol 12.5 mg 10/17/17 22:00 10/19/17 22:20 Coreg - PO 12.5 mg BID JEREMÍAS Administration Clopidogrel Bisulfate 75 mg 10/16/17 07:00 10/20/17 07:10 Plavix - PO 75 mg AM JEREMÍAS Administration Furosemide 100 mg 10/17/17 14:29 10/20/17 06:57 Lasix Injection - IVPUSH 100 mg BIDLASIX JEREMÍAS Administration Guaifenesin 600 mg 10/15/17 22:00 10/19/17 22:20 Mucinex - PO 600 mg BID JEREMÍAS Administration Dobutamine HCl/Dextrose 250,000 mcg in 250 mls @ 25.256 mls/hr 10/17/17 13:15 10/20/17 07:07 Dobutamine 250 Mg/D5w - IV 4.25 mcg/kg/min TITR JEREMÍAS 21.5 mls/hr 5 MCG/KG/MIN Infusion Melatonin 3 mg 10/15/17 22:00 10/19/17 22:20 Melatonin PO 3 mg HS JEREMÍAS Administration Metolazone 2.5 mg 10/15/17 16:30 10/20/17 06:00 Zaroxolyn - PO 2.5 mg DAILY@0530 JEREMÍAS Administration Polyethylene Glycol 17 gm 10/16/17 10:00 10/19/17 10:45 Miralax (For Daily Use) - PO Not Given DAILY JEREMÍAS Potassium Chloride 40 meq 10/19/17 10:00 10/19/17 22:27 K-Dur - PO Not Given BID JEREMÍAS Spironolactone 25 mg 10/16/17 10:00 10/19/17 10:45 Aldactone - PO 25 mg DAILY JEREMÍAS Administration - Objective Vital Signs: Vital Signs Temp 98 F 10/20/17 06:00 Pulse 68 10/20/17 06:00 Resp 20 10/20/17 06:00 BP 108/53 10/20/17 07:07 Pulse Ox 97 10/19/17 21:00 Intake & Output 10/19/17 10/19/17 10/20/17 11:59 23:59 11:59 Intake Total 330 360 Output Total 1100 3600 Balance -770 -3240 Weight 165 lb 8 oz 157 lb 6.4 oz Intake: IV 330 DOBUTAMINE 250 MG/D5W - 300 250,000 mcg In 250 ml @ 5 MCG/KG/MIN 25.256 mls/hr IV TITR JEREMÍAS Rx#: [id number] LH 22 10/14/2017 30 Oral 360 Output: Urine 1100 3600 [place] 1100 3600 Other: Voiding Method Indwelling Catheter Indwelling Catheter Indwelling Catheter # Unmeasured Voids [place] 1 Bowel Movement No Weight Measurement Method Standing Scale Standing Scale Constitutional: Yes: No Distress, Calm Eyes: No: Sclera Icterus HENT: No: Nasal Congestion Cardiovascular: Yes: Regular Rate and Rhythm (soft sounds), JVD (+8cm at 90 degrees), S1, S2, Other (PMI non diplaced). No: Gallop, Murmur Respiratory: Yes: CTA Bilaterally. No: Accessory Muscle Use, Rales, Wheezes Gastrointestinal: Yes: Normal Bowel Sounds, Soft. No: Tenderness Musculoskeletal: Yes: Other (No kyphosis) Extremities: No: Cold Edema: trace le edema bl Integumentary: No: Jaundice Neurological: Yes: Alert, Oriented (x3) Psychiatric: No: Agitated Labs: Laboratory Last Values WBC 5.2 K/mm3 (4.0-10.0) 10/19/17 05:25 RBC 3.94 M/mm3 (4.00-5.60) L 10/19/17 05:25 Hgb 10.0 GM/dL (11.7-16.9) L 10/19/17 05:25 Hct 31.2 % (35.4-49) L 10/19/17 05:25 MCV 79.0 fl (80-96) L 10/19/17 05:25 MCH 25.3 pg (25.7-33.7) L 10/19/17 05:25 MCHC 32.0 g/dl (32.0-35.9) 10/19/17 05:25 RDW 23.9 % (11.9-15.9) H 10/19/17 05:25 Plt Count 93 K/MM3 (134-434) L 10/19/17 05:25 MPV 9.2 fl (7.5-11.1) 10/19/17 05:25 Neutrophils % 60.6 % (42.8-82.8) 10/14/17 06:00 Lymphocytes % 18.5 % (8-40) 10/14/17 06:00 Monocytes % 11.2 % (3.8-10.2) H 10/14/17 06:00 Eosinophils % 7.8 % (0-4.5) H 10/14/17 06:00 Basophils % 1.9 % (0-2.0) 10/14/17 06:00 Hypochromia 0 10/18/17 05:25 Platelet Estimate Decreased 10/14/17 06:00 Platelet Comment 10/11/17 Unknown Polychromasia 0 10/18/17 05:25 Poikilocytosis 0 10/18/17 05:25 Anisocytosis 3+ 10/18/17 05:25 Microcytosis 2+ 10/18/17 05:25 Macrocytosis 0 10/18/17 05:25 Target Cells Few 10/14/17 06:00 Ovalocytes 1+ 10/11/17 Unknown PT with INR 16.90 SEC (9.98-11.88) H 10/15/17 08:40 INR 1.50 (0.82-1.09) H 10/15/17 08:40 PTT (Actin FS) 28.3 SECONDS (26.9-34.4) 10/15/17 08:40 Sodium 130 mmol/L (136-145) L 10/20/17 05:25 Potassium 3.0 mmol/L (3.5-5.1) L 10/20/17 05:25 Chloride 86 mmol/L (98-107) L 10/20/17 05:25 Carbon Dioxide 35 mmol/L (21-32) H 10/20/17 05:25 Anion Gap 9 (8-16) 10/20/17 05:25 BUN 45 mg/dL (7-18) H 10/20/17 05:25 Creatinine 1.9 mg/dL (0.7-1.3) H 10/20/17 05:25 Creat Clearance w eGFR 33.70 (>60) 10/20/17 05:25 Random Glucose 86 mg/dL (74-106) 10/20/17 05:25 Calcium 8.7 mg/dL (8.5-10.1) 10/20/17 05:25 Phosphorus 4.7 mg/dL (2.5-4.9) 10/20/17 05:25 Magnesium 2.5 mg/dL (1.8-2.4) H 10/20/17 05:25 Iron 37 ug/dL (38-169) L 10/14/17 06:00 TIBC 372 ug/dL (250-450) 10/14/17 06:00 Iron Saturation 10 % (15-55) L 10/14/17 06:00 Ferritin 27.415 ng/ml (16.4-293.9) 10/14/17 06:00 Total Bilirubin 1.1 mg/dL (0.2-1.0) H 10/20/17 05:25 AST 14 U/L (15-37) L D 10/20/17 05:25 ALT 11 U/L (12-78) L 10/20/17 05:25 Alkaline Phosphatase 100 U/L (45-117) 10/20/17 05:25 Creatine Kinase 49 IU/L (39-308) 10/11/17 Unknown Troponin I 0.03 ng/ml (0.00-0.05) 10/12/17 06:14 B-Natriuretic Peptide 83814.41 pg/ml (5-450) H 10/16/17 06:30 Total Protein 7.2 g/dl (6.4-8.2) 10/20/17 05:25 Albumin 3.5 g/dl (3.4-5.0) 10/20/17 05:25 Urine Color Ltyellow 10/11/17 19:08 Urine Appearance Clear 10/11/17 19:08 Urine pH 6.0 (5.0-8.0) 10/11/17 19:08 Ur Specific [place] 1.008 (1.001-1.035) 10/11/17 19:08 Urine Protein Negative (NEGATIVE) 10/11/17 19:08 Urine Glucose (UA) Negative (NEGATIVE) 10/11/17 19:08 Urine Ketones Negative (NEGATIVE) 10/11/17 19:08 Urine Blood Negative (NEGATIVE) 10/11/17 19:08 Urine Nitrite Negative (NEGATIVE) 10/11/17 19:08 Urine Bilirubin Negative (NEGATIVE) 10/11/17 19:08 Urine Urobilinogen Negative mg/dL (0.2-1.0) 10/11/17 19:08 Ur Leukocyte Esterase 3+ (NEGATIVE) H 10/11/17 19:08 Urine WBC (Auto) 64 /hpf (3-5) 10/11/17 19:08 Urine RBC (Auto) 2 /hpf (0-3) 10/11/17 19:08 Urine Bacteria Moderate /hpf (NONE SEEN) 10/11/17 19:08 - ....Imaging EKG: Other (tele: NSR) Assessment/Plan Echo 10/31: mod LVE, severely decr LVSF (global). nl RV. mild-mod MR/TR. no pHTN IMPRESSION: 1. CHF, NYHA class III. 2. Severe LV systolic dysfunction. 3. Moderate Ascites. 4. S/p NSTEMI, s/p PCI/stenting. 5. S/p ICD. 6. CKD--baseline creatinine previously around 1.8-2.3 7. ILD/ COPD 8. Chronic anemia. 9. CAD/s/p CABG 10. Chronic vertigo. 11. Tricuspid regurgitation (on physical exam) 12. thrombocytopenia--counts presently down from prior baseline 13. anemia--counts stable RECOMMENDATIONS: -Receiving inotrope-assisted diuresis here. -CXR 10/16 (report and image reviewed): mild incr markings, no effusions, ? congestion vs chronic interstitial--worse vs 08/01, suspect congestion. -wt continues to trend down, cr stable -diuresing well, cont lasix 100 iv bid, cont metolazone 2.5 with dobutamine fixed dose (5mcg/kg/min)-->once wt starts to plateau will be able to start transitioning to po meds for maintenance, possibly in another day or so. -monitor lytes, replete K and Mag to 4 and 2, respectively. -Continue carvedilol 12.5mg BID, spirono 25 qd. not on ALYCE, GFR 30s--defer. -no signs of cardiorenal syndrome--close creatinine f/u -pt has LBBB with QRS btw 120-130 msec. if pt willing, can consider upgrade of device to CARTOON ARTIST/D if has only ICD in place presently (for sx control/qual of life) -CAD regimen: cont DAPT and BB per prior CAD tx (s/p PCI). no statin being given here--defer to dr huitron who returns 10/21 (? prior refusal/intolerance)
--- NOTE | 2017-10-20 11:10 | PN ---
Progress Note, Physician History of Present Illness: PULMONARY ALERTFEELING BETTER,COMFORTABLE,-RESP DISTRESS. WT 157. PT REMAINS ON DOBUTAMINE DRIP - Current Medication List Current Medications: Active Medications Albuterol Sulfate (Ventolin 0.083% Nebulizer Soln -) 1 amp NEB Q8H PRN PRN Reason: SHORT OF BREATH/WHEEZING Alprazolam (Xanax -) 0.5 mg PO HS PRN PRN Reason: INSOMNIA Last Admin: 10/19/17 22:20 Dose: 0.5 mg Aspirin (Ecotrin -) 81 mg PO DAILY [facility] Last Admin: 10/19/17 10:45 Dose: 81 mg Carvedilol (Coreg -) 12.5 mg PO BID [facility] Last Admin: 10/19/17 22:20 Dose: 12.5 mg Clopidogrel Bisulfate (Plavix -) 75 mg PO AM [facility] Last Admin: 10/20/17 07:10 Dose: 75 mg Furosemide (Lasix Injection -) 100 mg IVPUSH BIDLASIX [facility] Last Admin: 10/20/17 06:57 Dose: 100 mg Guaifenesin (Mucinex -) 600 mg PO BID [facility] Last Admin: 10/19/17 22:20 Dose: 600 mg Dobutamine HCl/Dextrose (Dobutamine 250 Mg/D5w -) 250,000 mcg in 250 mls @ 25.256 mls/hr IV TITR JEREMÍAS PRN Reason: 5 MCG/KG/MIN Last Infusion: 10/20/17 07:07 Dose: 4.25 mcg/kg/min, 21.5 mls/hr Melatonin (Melatonin) 3 mg PO HS [facility] Last Admin: 10/19/17 22:20 Dose: 3 mg Metolazone (Zaroxolyn -) 2.5 mg PO DAILY@0530 [facility] Last Admin: 10/20/17 06:00 Dose: 2.5 mg Polyethylene Glycol (Miralax (For Daily Use) -) 17 gm PO DAILY [facility] Last Admin: 10/19/17 10:45 Dose: Not Given Potassium Chloride (K-Dur -) 40 meq PO BID [facility] Last Admin: 10/19/17 22:27 Dose: Not Given Spironolactone (Aldactone -) 25 mg PO DAILY [facility] Last Admin: 10/19/17 10:45 Dose: 25 mg - Objective Vital Signs: Vital Signs Temperature 98 F 10/20/17 06:00 Pulse Rate 68 10/20/17 06:00 Respiratory Rate 20 10/20/17 06:00 Blood Pressure 108/53 10/20/17 07:07 O2 Sat by Pulse Oximetry (%) 97 10/19/17 21:00 Constitutional: Yes: Well Nourished, Calm Eyes: Yes: WNL HENT: Yes: WNL Neck: Yes: WNL Cardiovascular: Yes: Regular Rate and Rhythm, S1, S2 Respiratory: Yes: Rales (BIBASILAR RALES) Gastrointestinal: Yes: Normal Bowel Sounds, Soft Extremities: Yes: WNL Edema: No Labs: CBC, BMP 10/19/17 05:25 10/20/17 05:25 INR, PTT INR 1.50 (0.82-1.09) H 10/15/17 08:40 Assessment/Plan 1) CHF (congestive heart failure) Code(s): I50.9 - HEART FAILURE, UNSPECIFIED Qualifiers: Congestive heart failure type: unspecified congestive heart failure type Congestive heart failure chronicity: chronic Qualified Code(s): I50.9 - Heart failure, unspecified (2) Acute exacerbation of CHF (congestive heart failure) Code(s): I50.9 - HEART FAILURE, UNSPECIFIED (3) Anxiety Code(s): F41.9 - ANXIETY DISORDER, UNSPECIFIED (4) COPD (chronic obstructive pulmonary disease) Code(s): J44.9 - CHRONIC OBSTRUCTIVE PULMONARY DISEASE, UNSPECIFIED (5) Chronic mastoiditis, bilateral Code(s): H70.13 - CHRONIC MASTOIDITIS, BILATERAL (6) Compliance poor Code(s): Z91.19 - PATIENT'S NONCOMPLIANCE W OTH MEDICAL TREATMENT AND REGIMEN Assessment/Plan BETA-BLOCKERS DIURETICS O2 BRONCHODILATORS DAILY WEIGHT DOBUTAMINE DRIP PER CARDIOLOGY PT JUDY ANGELA
[2017-10-20] MEDS: DOBUTAMINE 250 MG/D5W - 250,000 MCG/250 ML INFUS.BAG IV SCH ×2 (11:12→14:28)
[2017-10-20] MEDS: ASPIRIN COATED 81 MG TABLET.EC PO SCH (11:13)
[2017-10-20] MEDS: guaiFENesin 600 MG TABLET.ER (FP) PO SCH ×2 (11:13→22:37)
[2017-10-20] MEDS: POTASSIUM CHLORIDE TABS 20 MEQ TABLET.ER (FP) PO SCH ×2 (11:13→22:37)
[2017-10-20] MEDS: SPIRONOLACTONE 25 MG TABLET (FP) PO SCH (11:13)
[2017-10-20] MEDS: CARVEDILOL 12.5 MG TABLET (FP) PO SCH ×2 (11:13→22:37)
[2017-10-20] MEDS: POLYETHYLENE GLYCOL 3350 119 GM BTL PO SCH (11:14)
[2017-10-20] MEDS: ALPRAZolam 0.25 MG TABLET PO PRN (20:30)
[2017-10-20] MEDS: MELATONIN 1 MG TABLET PO SCH (22:37)
[2017-10-21] MEDS: METOLAZONE 2.5 MG TABLET (FP) PO SCH (05:00)
[2017-10-21] MEDS: FUROSEMIDE 40 MG/4 ML INJECTABLE VIAL IVPUSH SCH (05:55)
[2017-10-21] MEDS: CLOPIDOGREL BISULFATE 75 MG TABLET (FP) PO SCH (06:17)
[2017-10-21 08:01] LABS: ANION GAP 11 (8-16); BLOOD UREA NITROGEN 46 mg/dL (7-18); CALCIUM 8.8 mg/dL (8.5-10.1); CHLORIDE 85 mmol/L (98-107); CO2 35 mmol/L (21-32); GLUCOSE,RANDOM 81 mg/dL (74-106); POTASSIUM 3.5 mmol/L (3.5-5.1); SODIUM 131 mmol/L (136-145)
[2017-10-21] MEDS: DOBUTAMINE 250 MG/D5W - 250,000 MCG/250 ML INFUS.BAG IV SCH (09:35)
[2017-10-21] MEDS: ASPIRIN COATED 81 MG TABLET.EC PO SCH (10:18)
[2017-10-21] MEDS: SPIRONOLACTONE 25 MG TABLET (FP) PO SCH (10:18)
[2017-10-21] MEDS: CARVEDILOL 12.5 MG TABLET (FP) PO SCH ×2 (10:18→21:52)
[2017-10-21] MEDS: POTASSIUM CHLORIDE TABS 20 MEQ TABLET.ER (FP) PO SCH (10:18)
[2017-10-21] MEDS: guaiFENesin 600 MG TABLET.ER (FP) PO SCH ×2 (10:18→21:52)
[2017-10-21] MEDS: POLYETHYLENE GLYCOL 3350 119 GM BTL PO SCH (10:20)
--- NOTE | 2017-10-21 10:20 | PN ---
Progress Note (short form) - Note Progress Note: 87 year old male admitted with CHF, known case of CAD/s/p CABG, s/p NSTEMI s/p PCI stenting severe LV systolic dysfunction, s/p ICD for primary prophylaxis. H/ o COPD/ILD, hypercholesterolemia. H/o CKD. Patient feels better, appreciated f/u by the [place] balling head tender,. Progressive weight loss, c/o vertigo. No SOB or chest pain. Active Medications Generic Name Dose Route Start Last Admin Trade Name Freq PRN Reason Stop Dose Admin Alprazolam 0.5 mg 10/19/17 17:04 10/20/17 20:30 Xanax - PO 0.5 mg HS PRN Administration INSOMNIA Aspirin 81 mg 10/16/17 10:00 10/20/17 11:13 Ecotrin - PO 81 mg DAILY JEREMÍAS Administration Carvedilol 12.5 mg 10/17/17 22:00 10/20/17 22:37 Coreg - PO 12.5 mg BID JEREMÍAS Administration Clopidogrel Bisulfate 75 mg 10/16/17 07:00 10/21/17 06:17 Plavix - PO 75 mg AM JEREMÍAS Administration Furosemide 100 mg 10/17/17 14:29 10/21/17 05:55 Lasix Injection - IVPUSH 100 mg BIDLASIX JEREMÍAS Administration Guaifenesin 600 mg 10/15/17 22:00 10/20/17 22:37 Mucinex - PO 600 mg BID JEREMÍAS Administration Dobutamine HCl/Dextrose 250,000 mcg in 250 mls @ 25.256 mls/hr 10/17/17 13:15 10/21/17 09:35 Dobutamine 250 Mg/D5w - IV 4.21 mcg/kg/min TITR JEREMÍAS 21.3 mls/hr 5 MCG/KG/MIN Administration Melatonin 3 mg 10/15/17 22:00 10/20/17 22:37 Melatonin PO 3 mg HS JEREMÍAS Administration Metolazone 2.5 mg 10/15/17 16:30 10/21/17 05:00 Zaroxolyn - PO 2.5 mg DAILY@0530 JEREMÍAS Administration Polyethylene Glycol 17 gm 10/16/17 10:00 10/20/17 11:14 Miralax (For Daily Use) - PO Not Given DAILY JEREMÍAS Potassium Chloride 40 meq 10/19/17 10:00 10/20/17 22:37 K-Dur - PO 40 meq BID JEREMÍAS Administration Spironolactone 25 mg 10/16/17 10:00 10/20/17 11:13 Aldactone - PO 25 mg DAILY JEREMÍAS Administration 87 year old male in in distress, no pallor, cyanosis, clubbing or jaundice. Last Vital Signs Temp Pulse Resp BP Pulse Ox 97.4 F L 64 20 110/52 97 10/21/17 02:00 10/21/17 06:55 10/21/17 06:55 10/21/17 09:35 10/20/17 21:00 Intake & Output 10/18/17 10/19/17 10/20/17 10/21/17 23:59 23:59 23:59 23:59 Intake Total 630 690 480 Output Total 5300 4700 3400 1000 Balance -4670 -4010 -2920 -1000 Weight 172 lb 6.4 oz 165 lb 8 oz 157 lb 6.4 oz 156 lb 6.4 oz NECK: Supple, No JVD at 30 degrees, -ve HJR, carotids 2+. HEART: PMI th ICS, S1 and S2 are normal. Grade I/ DUARTE 2nd right ICS.and grade I/ systolic murmur along the LSB no diastolic murmur or gallops heard. LUNGS: Clear on auscultation. ABDOMEN: Soft, nontender, distended, no hepatosplenomegy or ascites. EXTREMITIES: No calf tenderness. No pedal edema edema. CBC, BMP 10/19/17 05:25 10/21/17 07:00 IMPRESSION: 1. CHF, resolved 2. Severe LV systolic dysfunction. 3. CKD 4. S/p NSTEMI, s/p PCI/stenting. 5. S/p ICD. 6. Tricuspid disease. 7. ILD/ COPD 8. Chronic anemia. 9. CAD/s/p CABG 10. Chronic vertigo. 11. Poor compliance. RECOMMENDATIONS: Case discussed with hospitalist and residents. 1. D/C dobutamine. 2. Continue therapy 3. Resume Antivert. 4. Reduce dose of lasix. 5. Increase ambulation.
[2017-10-21] MEDS: POTASSIUM CHLORIDE ORAL LIQUID 20 MEQ/15 ML PO SCH ×2 (10:40→21:57)
[2017-10-21] MEDS: MECLIZINE HCL 25 MG TABLET (FP) PO PRN ×2 (10:42→21:57)
--- NOTE | 2017-10-21 11:51 | PN ---
Progress Note, Physician History of Present Illness: pulmonary alert,nad,-sob,remains on dobutamine drip - Current Medication List Current Medications: Active Medications Alprazolam (Xanax -) 0.5 mg PO HS PRN PRN Reason: INSOMNIA Last Admin: 10/20/17 20:30 Dose: 0.5 mg Aspirin (Ecotrin -) 81 mg PO DAILY [facility] Last Admin: 10/21/17 10:18 Dose: 81 mg Carvedilol (Coreg -) 12.5 mg PO BID [facility] Last Admin: 10/21/17 10:18 Dose: 12.5 mg Clopidogrel Bisulfate (Plavix -) 75 mg PO AM [facility] Last Admin: 10/21/17 06:17 Dose: 75 mg Furosemide (Lasix Injection -) 100 mg IVPUSH BIDLASIX [facility] Last Admin: 10/21/17 05:55 Dose: 100 mg Guaifenesin (Mucinex -) 600 mg PO BID [facility] Last Admin: 10/21/17 10:18 Dose: 600 mg Dobutamine HCl/Dextrose (Dobutamine 250 Mg/D5w -) 250,000 mcg in 250 mls @ 25.256 mls/hr IV TITR [facility] PRN Reason: 5 MCG/KG/MIN Last Admin: 10/21/17 09:35 Dose: 4.21 mcg/kg/min, 21.3 mls/hr Meclizine HCl (Antivert -) 25 mg PO Q8H PRN PRN Reason: Dizziness Last Admin: 10/21/17 10:42 Dose: 25 mg Melatonin (Melatonin) 3 mg PO HS [facility] Last Admin: 10/20/17 22:37 Dose: 3 mg Metolazone (Zaroxolyn -) 2.5 mg PO DAILY@0530 [facility] Last Admin: 10/21/17 05:00 Dose: 2.5 mg Polyethylene Glycol (Miralax (For Daily Use) -) 17 gm PO DAILY [facility] Last Admin: 10/21/17 10:20 Dose: Not Given Potassium Chloride (Potassium Chloride Oral Liquid) 40 meq PO BID [facility] Last Admin: 10/21/17 10:40 Dose: 40 meq Spironolactone (Aldactone -) 25 mg PO DAILY [facility] Last Admin: 10/21/17 10:18 Dose: 25 mg - Objective Vital Signs: Vital Signs Temperature 98.3 F 10/21/17 10:00 Pulse Rate 68 10/21/17 10:00 Respiratory Rate 20 10/21/17 10:00 Blood Pressure 110/52 10/21/17 10:00 O2 Sat by Pulse Oximetry (%) 98 10/21/17 09:00 Constitutional: Yes: Well Nourished, Calm Eyes: Yes: WNL HENT: Yes: WNL Neck: Yes: WNL Cardiovascular: Yes: Regular Rate and Rhythm, S1, S2 Respiratory: Yes: Rales (bibasilar rales) Gastrointestinal: Yes: Normal Bowel Sounds, Soft Extremities: Yes: WNL Edema: No Labs: 10/21/17 07:00 INR, PTT INR 1.50 (0.82-1.09) H 10/15/17 08:40 Assessment/Plan 1) CHF (congestive heart failure) Code(s): I50.9 - HEART FAILURE, UNSPECIFIED Qualifiers: Congestive heart failure type: unspecified congestive heart failure type Congestive heart failure chronicity: chronic Qualified Code(s): I50.9 - Heart failure, unspecified (2) Acute exacerbation of CHF (congestive heart failure) Code(s): I50.9 - HEART FAILURE, UNSPECIFIED (3) Anxiety Code(s): F41.9 - ANXIETY DISORDER, UNSPECIFIED (4) COPD (chronic obstructive pulmonary disease) Code(s): J44.9 - CHRONIC OBSTRUCTIVE PULMONARY DISEASE, UNSPECIFIED (5) Chronic mastoiditis, bilateral Code(s): H70.13 - CHRONIC MASTOIDITIS, BILATERAL (6) Compliance poor Code(s): Z91.19 - PATIENT'S NONCOMPLIANCE W OTH MEDICAL TREATMENT AND REGIMEN Assessment/Plan BETA-BLOCKERS DIURETICS O2 BRONCHODILATORS DAILY WEIGHT DOBUTAMINE DRIP DISCONTINUED PER CARDIOLOGY PT JUDY ANGELA
--- NOTE | 2017-10-21 13:29 | PN ---
Teaching Attending Note Name of Resident: Aleksandr Joyner ATTENDING PHYSICIAN STATEMENT Time of evaluation: 11:10 AM I saw and evaluated the patient. I reviewed the resident's note and discussed the case with the resident. I agree with the resident's findings and plan as documented. SUBJECTIVE: Patient seen and examined. breathing improved, overall feels much better, initially declined to work with PT, now agreable. OBJECTIVE: Vital Signs Period Temp Pulse Resp BP Sys/العلي Pulse Ox Last 24 Hr 97.4 F-98.8 F 64-73 18-20 108-125/52-68 97-98 Intake & Output 10/18/17 10/19/17 10/20/17 10/21/17 23:59 23:59 23:59 23:59 Intake Total 630 690 480 Output Total 5300 4700 3400 1000 Balance -4670 -4010 -2920 -1000 Weight 172 lb 6.4 oz 165 lb 8 oz 157 lb 6.4 oz 156 lb 6.4 oz General: lying in bed in no acute distress, much improved volume status CVS:S1S2 regular chest: improved air entry bilaterally Extremities: markedly improved leg edema Home Medication List Medication Instructions Recorded Confirmed Type Simvastatin 20 mg PO HS 06/10/17 10/11/17 History Potassium Chloride 20 meq PO DAILY 06/27/17 10/11/17 History Carvedilol 6.25 mg PO HS 08/01/17 10/11/17 History Meclizine HCl [Antivert -] 12.5 mg PO TID PRN 08/01/17 10/11/17 History Melatonin 3 mg PO DAILY 09/23/17 10/11/17 History Active Medications Generic Name Dose Route Start Last Admin Trade Name Freq PRN Reason Stop Dose Admin Alprazolam 0.5 mg 10/19/17 17:04 10/20/17 20:30 Xanax - PO 0.5 mg HS PRN Administration INSOMNIA Aspirin 81 mg 10/16/17 10:00 10/21/17 10:18 Ecotrin - PO 81 mg DAILY JEREMÍAS Administration Carvedilol 12.5 mg 10/17/17 22:00 10/21/17 10:18 Coreg - PO 12.5 mg BID JEREMÍAS Administration Clopidogrel Bisulfate 75 mg 10/16/17 07:00 10/21/17 06:17 Plavix - PO 75 mg AM JEREMÍAS Administration Furosemide 80 mg 10/22/17 10:00 Lasix Injection - IVPUSH DAILY JEREMÍAS Guaifenesin 600 mg 10/15/17 22:00 10/21/17 10:18 Mucinex - PO 600 mg BID JEREMÍAS Administration Dobutamine HCl/Dextrose 250,000 mcg in 250 mls @ 12.628 mls/hr 10/21/17 13:23 Dobutamine 250 Mg/D5w - IV TITR JEREMÍAS 2.5 MCG/KG/MIN Meclizine HCl 25 mg 10/21/17 10:29 10/21/17 10:42 Antivert - PO 25 mg Q8H PRN Administration Dizziness Melatonin 3 mg 10/15/17 22:00 10/20/17 22:37 Melatonin PO 3 mg HS JEREMÍAS Administration Metolazone 2.5 mg 10/15/17 16:30 10/21/17 05:00 Zaroxolyn - PO 2.5 mg DAILY@0530 JEREMÍAS Administration Polyethylene Glycol 17 gm 10/16/17 10:00 10/21/17 10:20 Miralax (For Daily Use) - PO Not Given DAILY JEREMÍAS Potassium Chloride 40 meq 10/21/17 10:30 10/21/17 10:40 Potassium Chloride Oral Liquid PO 40 meq BID JEREMÍAS Administration Spironolactone 25 mg 10/16/17 10:00 10/21/17 10:18 Aldactone - PO 25 mg DAILY JEREMÍAS Administration Laboratory Results - last 24 hr 10/20/17 10/21/17 15:00 07:00 Sodium 131 L Potassium 3.6 3.5 Chloride 85 L Carbon Dioxide 35 H Anion Gap 11 BUN 46 H Creatinine 2.0 H Random Glucose 81 Calcium 8.8 Microbiology 10/12/17 14:48 Urine - Urine Clean Catch Urine Culture - Final Enterococcus Faecalis ASSESSMENT AND PLAN: 87 year old man with a history of CAD s/p CABG & stents, chronic systolic heart failure s/p AICD, HTN, hyperlipidemia, CKD who presents to the ED with leg swelling. -Acute on chronic systolic heart failure exacerbation with anasarca -Severe ischemic cardiomyopathy -Acute on Chronic CKD suspect from poor perfusion and CHF -Ascitis, suspect from volume overload -Lower uncomplicated E. faecalis UTI -Hypokalemia -Thrombocytopenia -Normocytic anemia -CAD s/p MN/CABG/Stents -HTN -Hyperlipiemia Plan Cardiology input noted. started on dobutamine drip 1/3 Marked improvement in urine output and volume status. Discussed with Dr. Campuzano, taper dobutamine drip to off today, discussed with RN. Metolazone 2.5 mg daily. Change lasix to 80 mg iV daily, strict I/Os. Increased coreg to 12.5 mg BID, tolerating well. repeat 2D echo noted. Abdominal ultrasound with ascitis, exam improved, seems almost resolved Discussed with Dr. Stone, taper dobutamine/Lasix in 24 hours Monitor lytes. Standing K supplementation Urine cultures noted, ceftriaxone, then amoxicillin, for total 7 days, completed 10/18.. Continue asa/plavix/zocor/aldactone. Renal function continues to improve SCDs for DVTPPX Continue telemetry monitoring. Newberry placed per patient preference. Encourage OOB, PT eval, dispo planning , anticipate dc in 24-48 hours if doing well off dobutamine drip. patient agreable to working with PT now. Plan discussed with patient in detail, all questions answered.
[2017-10-21] MEDS ORDERED: DOBUTAMINE 250 MG/D5W - 250,000 MCG/250 ML INFUS.BAG IV SCH (15:00)
--- NOTE | 2017-10-21 17:00 | PN ---
Physical Exam: SUBJECTIVE: Patient seen and examined earlier int he morning. Pt reports having vertigo this morning which he has had before. Pt usually was given Antivert which helps his vertigo. Denies any blurriness, headache, CP/discomfort, palpitations. No events on monitor noted. OBJECTIVE: Vital Signs Period Temp Pulse Resp BP Sys/العلي Pulse Ox Last 24 Hr 97.4 F-98.3 F 64-73 20-20 106-118/52-63 97-98 GENERAL: NAD, awake, alert, and fully oriented, lying in bed HEENT: NC/AT, sclera anicteric, EOMI, SIMON, no JVD appreciated!, no bruits upon auscultation LUNGS: CTA b/l, no wheezes, rhonchi, rales. No accessory muscle use. On 4LNC HEART: RRR, S1, S2 without murmur appreciated ABDOMEN: Soft, nontender, nondistended, normoactive bowel sounds, no guarding, no hepatomegaly, absent hepatojugular reflux today EXTREMITIES: 2+ DP pulses, warm, well-perfused, No edema! SKIN: Warm, dry, no rashes or lesions noted Laboratory Results - last 24 hr 10/21/17 07:00 Sodium 131 L Potassium 3.5 Chloride 85 L Carbon Dioxide 35 H Anion Gap 11 BUN 46 H Creatinine 2.0 H Random Glucose 81 Calcium 8.8 Active Medications Generic Name Dose Route Start Last Admin Trade Name Freq PRN Reason Stop Dose Admin Alprazolam 0.5 mg 10/19/17 17:04 10/20/17 20:30 Xanax - PO 0.5 mg HS PRN Administration INSOMNIA Aspirin 81 mg 10/16/17 10:00 10/21/17 10:18 Ecotrin - PO 81 mg DAILY JEREMÍAS Administration Carvedilol 12.5 mg 10/17/17 22:00 10/21/17 10:18 Coreg - PO 12.5 mg BID JEREMÍAS Administration Clopidogrel Bisulfate 75 mg 10/16/17 07:00 10/21/17 06:17 Plavix - PO 75 mg AM JEREMÍAS Administration Furosemide 80 mg 10/22/17 10:00 Lasix Injection - IVPUSH DAILY JEREMÍAS Guaifenesin 600 mg 10/15/17 22:00 10/21/17 10:18 Mucinex - PO 600 mg BID JEREMÍAS Administration Dobutamine HCl/Dextrose 250,000 mcg in 250 mls @ 12.628 mls/hr 10/21/17 15:00 10/21/17 14:59 Dobutamine 250 Mg/D5w - IV 2.5 mcg/kg/min TITR JEREMÍAS 12.628 mls/hr 2.5 MCG/KG/MIN Administration Meclizine HCl 25 mg 10/21/17 10:29 10/21/17 10:42 Antivert - PO 25 mg Q8H PRN Administration Dizziness Melatonin 3 mg 10/15/17 22:00 10/20/17 22:37 Melatonin PO 3 mg HS JEREMÍAS Administration Metolazone 2.5 mg 10/15/17 16:30 10/21/17 05:00 Zaroxolyn - PO 2.5 mg DAILY@0530 JEREMÍAS Administration Polyethylene Glycol 17 gm 10/16/17 10:00 10/21/17 10:20 Miralax (For Daily Use) - PO Not Given DAILY JEREMÍAS Potassium Chloride 40 meq 10/21/17 10:30 10/21/17 10:40 Potassium Chloride Oral Liquid PO 40 meq BID JEREMÍAS Administration Spironolactone 25 mg 10/16/17 10:00 10/21/17 10:18 Aldactone - PO 25 mg DAILY JEREMÍAS Administration ASSESSMENT/PLAN: 1) Acute on chronic systolic CHF exacerbation --NYHA Class II --Decreased Lasix 80mg IVP daily --Most recent echo 05/2017: LV systolic function severely decreased with LV dilation and global hypokinesis; LA enlargement; Mod MR; mild --Strict I&O's --Newberry catheter in place --Daily weights --Continue Aldactone 25mg qDaily PO --Coreg to 12.5mg BID tolerated well --Cardiology consulted --Zeroxlyn to continue --Taper off Dobutamine gtt and monitor response 2) UTI --s/p antibiotics; full course completed --Urine cultures reviewed with sensitivities --Amoxicillin 500mg BID due to susceptibility of enterococcus day 04/19 3) CAD --Continue Plavix 75mg qDaily --Continue Lipitor 10mg HS --ASA 81mg qdaily 4) Pre-diabetes --Diet controlled --diabetic/sodium controlled diet --Last A1c 6.5 5) CKD --Most likely 2/2 cardiorenal syndrome --Cr at baseline (2.1) --Avoid nephrotoxic agents --Trend BMP FEN Fluids: Avoid due to hypervolemic state Electrolyte Abnormalities: Hypokalemia; repleted with 40mEq KCl oral solution bID Nutrition: Sodium controlled, diabetic diet PPX DVT - mod risk - SCDs Dispo: continue tele floor; d/c planning Case discussed with Dr. Sonny Joyner, DO - Internal Medicine PGY-1 Visit type - Emergency Visit Emergency Visit: No - New Patient This patient is new to me today: No - Critical Care Critical Care patient: No
[2017-10-21] MEDS ORDERED: PT OWN MED DRAWER 7, Y5N ONE (21:49)
[2017-10-21] MEDS: ALPRAZolam 0.25 MG TABLET PO PRN (21:52)
[2017-10-21] MEDS: MELATONIN 1 MG TABLET PO SCH (21:52)
[2017-10-22] MEDS: METOLAZONE 2.5 MG TABLET (FP) PO SCH (05:51)
[2017-10-22] MEDS: CLOPIDOGREL BISULFATE 75 MG TABLET (FP) PO SCH (06:18)
[2017-10-22 07:45] LABS: ANION GAP 11 (8-16); BLOOD UREA NITROGEN 54 mg/dL (7-18); CHLORIDE 89 mmol/L (98-107); CO2 32 mmol/L (21-32); GLUCOSE,RANDOM 89 mg/dL (74-106); MAGNESIUM 2.7 mg/dL (1.8-2.4); PHOSPHOROUS 5.3 mg/dL (2.5-4.9); SODIUM 132 mmol/L (136-145)
[2017-10-22] MEDS ORDERED: METOLAZONE 2.5 MG TABLET (FP) PO SCH (09:30)
[2017-10-22] MEDS: POTASSIUM CHLORIDE ORAL LIQUID 20 MEQ/15 ML PO SCH ×2 (09:49→21:34)
[2017-10-22] MEDS: ASPIRIN COATED 81 MG TABLET.EC PO SCH (09:49)
[2017-10-22] MEDS: guaiFENesin 600 MG TABLET.ER (FP) PO SCH ×2 (09:49→21:34)
[2017-10-22] MEDS: CARVEDILOL 12.5 MG TABLET (FP) PO SCH ×2 (09:54→21:34)
[2017-10-22] MEDS: SPIRONOLACTONE 25 MG TABLET (FP) PO SCH (09:55)
[2017-10-22] MEDS: POLYETHYLENE GLYCOL 3350 119 GM BTL PO SCH (09:57)
[2017-10-22] MEDS: FUROSEMIDE 40 MG/4 ML INJECTABLE VIAL IVPUSH SCH ×2 (09:58→13:25)
--- NOTE | 2017-10-22 11:22 | PN ---
Progress Note, Physician History of Present Illness: PULMONARY ALERT,NAD,-SOB,CP, - Current Medication List Current Medications: Active Medications Alprazolam (Xanax -) 0.5 mg PO HS PRN PRN Reason: INSOMNIA Last Admin: 10/21/17 21:52 Dose: 0.5 mg Aspirin (Ecotrin -) 81 mg PO DAILY [facility] Last Admin: 10/22/17 09:49 Dose: 81 mg Carvedilol (Coreg -) 12.5 mg PO BID [facility] Last Admin: 10/22/17 09:54 Dose: 12.5 mg Clopidogrel Bisulfate (Plavix -) 75 mg PO AM [facility] Last Admin: 10/22/17 06:18 Dose: 75 mg Furosemide (Lasix Injection -) 80 mg IVPUSH DAILY [facility] Last Admin: 10/22/17 09:58 Dose: Not Given Guaifenesin (Mucinex -) 600 mg PO BID [facility] Last Admin: 10/22/17 09:49 Dose: 600 mg Meclizine HCl (Antivert -) 25 mg PO Q8H PRN PRN Reason: Dizziness Last Admin: 10/21/17 21:57 Dose: 25 mg Melatonin (Melatonin) 3 mg PO HS [facility] Last Admin: 10/21/17 21:52 Dose: 3 mg Metolazone (Zaroxolyn -) 2.5 mg PO DAILY@0930 [facility] Last Admin: 10/22/17 09:54 Dose: 2.5 mg Polyethylene Glycol (Miralax (For Daily Use) -) 17 gm PO DAILY [facility] Last Admin: 10/22/17 09:57 Dose: 17 gm Potassium Chloride (Potassium Chloride Oral Liquid) 40 meq PO BID [facility] Last Admin: 10/22/17 09:49 Dose: 40 meq Spironolactone (Aldactone -) 25 mg PO DAILY [facility] Last Admin: 10/22/17 09:55 Dose: 25 mg - Objective Vital Signs: Vital Signs Temperature 98.3 F 10/22/17 09:32 Pulse Rate 71 10/22/17 09:32 Respiratory Rate 20 10/22/17 09:32 Blood Pressure 98/45 10/22/17 09:32 O2 Sat by Pulse Oximetry (%) 98 10/22/17 09:00 Constitutional: Yes: Calm, Thin Eyes: Yes: WNL HENT: Yes: WNL Neck: Yes: WNL Cardiovascular: Yes: Regular Rate and Rhythm, S1, S2 Respiratory: Yes: Rales (FEW BIBASILAR RALES) Gastrointestinal: Yes: Normal Bowel Sounds, Soft Extremities: Yes: WNL Edema: No Labs: CBC, BMP 10/19/17 05:25 10/22/17 06:50 INR, PTT INR 1.50 (0.82-1.09) H 10/15/17 08:40 Assessment/Plan 1) CHF (congestive heart failure) Code(s): I50.9 - HEART FAILURE, UNSPECIFIED Qualifiers: Congestive heart failure type: unspecified congestive heart failure type Congestive heart failure chronicity: chronic Qualified Code(s): I50.9 - Heart failure, unspecified (2) Acute exacerbation of CHF (congestive heart failure) Code(s): I50.9 - HEART FAILURE, UNSPECIFIED (3) Anxiety Code(s): F41.9 - ANXIETY DISORDER, UNSPECIFIED (4) COPD (chronic obstructive pulmonary disease) Code(s): J44.9 - CHRONIC OBSTRUCTIVE PULMONARY DISEASE, UNSPECIFIED (5) Chronic mastoiditis, bilateral Code(s): H70.13 - CHRONIC MASTOIDITIS, BILATERAL (6) Compliance poor Code(s): Z91.19 - PATIENT'S NONCOMPLIANCE W OTH MEDICAL TREATMENT AND REGIMEN Assessment/Plan BETA-BLOCKERS DIURETICS O2 BRONCHODILATORS DAILY WEIGHT PT JUDY ANGELA
--- NOTE | 2017-10-22 13:39 | PN ---
Physical Exam: SUBJECTIVE: Patient seen and examined earlier in the morning. No events overnight. Pt has no new complaints OBJECTIVE: Vital Signs Period Temp Pulse Resp BP Sys/العلي Pulse Ox Last 24 Hr 98 F-98.5 F 70-75 18-20 98-118/45-69 98-98 GENERAL: NAD, awake, alert, and fully oriented, lying in bed HEENT: NC/AT, sclera anicteric, EOMI, SIMON, no JVD appreciated!, no bruits upon auscultation LUNGS: CTA b/l, no wheezes, rhonchi, rales. No accessory muscle use. On 4LNC HEART: RRR, S1, S2 without murmur appreciated ABDOMEN: Soft, nontender, nondistended, normoactive bowel sounds, no guarding, no hepatomegaly, absent hepatojugular reflux today EXTREMITIES: 2+ DP pulses, warm, well-perfused, No edema! SKIN: Warm, dry, no rashes or lesions noted Laboratory Results - last 24 hr 10/22/17 06:50 Sodium 132 L Potassium 4.0 Chloride 89 L Carbon Dioxide 32 Anion Gap 11 BUN 54 H Creatinine 2.0 H Random Glucose 89 Calcium 9.0 Phosphorus 5.3 H Magnesium 2.7 H Active Medications Generic Name Dose Route Start Last Admin Trade Name Freq PRN Reason Stop Dose Admin Alprazolam 0.5 mg 10/19/17 17:04 10/21/17 21:52 Xanax - PO 0.5 mg HS PRN Administration INSOMNIA Aspirin 81 mg 10/16/17 10:00 10/22/17 09:49 Ecotrin - PO 81 mg DAILY JEREMÍAS Administration Carvedilol 12.5 mg 10/17/17 22:00 10/22/17 09:54 Coreg - PO 12.5 mg BID JEREMÍAS Administration Clopidogrel Bisulfate 75 mg 10/16/17 07:00 10/22/17 06:18 Plavix - PO 75 mg AM JEREMÍAS Administration Furosemide 80 mg 10/22/17 10:00 10/22/17 13:25 Lasix Injection - IVPUSH 80 mg DAILY JEREMÍAS Administration Guaifenesin 600 mg 10/15/17 22:00 10/22/17 09:49 Mucinex - PO 600 mg BID JEREMÍAS Administration Meclizine HCl 25 mg 10/21/17 10:29 10/21/17 21:57 Antivert - PO 25 mg Q8H PRN Administration Dizziness Melatonin 3 mg 10/15/17 22:00 10/21/17 21:52 Melatonin PO 3 mg HS JEREMÍAS Administration Metolazone 2.5 mg 10/22/17 09:30 10/22/17 09:54 Zaroxolyn - PO 2.5 mg DAILY@0930 JEREMÍAS Administration Polyethylene Glycol 17 gm 10/16/17 10:00 10/22/17 09:57 Miralax (For Daily Use) - PO 17 gm DAILY JEREMÍAS Administration Potassium Chloride 40 meq 10/21/17 10:30 10/22/17 09:49 Potassium Chloride Oral Liquid PO 40 meq BID JEREMÍAS Administration Spironolactone 25 mg 10/16/17 10:00 10/22/17 09:55 Aldactone - PO 25 mg DAILY JEREMÍAS Administration ASSESSMENT/PLAN: 1) Acute on chronic systolic CHF exacerbation --NYHA Class II --Lasix 80mg IVP daily --will need to discuss with cardiology about outpatient lasix dosage prior to discharge --Most recent echo 05/2017: LV systolic function severely decreased with LV dilation and global hypokinesis; LA enlargement; Mod MR; mild --Remove bond tonight --Daily weights --Continue Aldactone 25mg qDaily PO --Coreg to 12.5mg BID tolerated well --Cardiology consulted --Zeroxlyn to continue --Off dobutamine with continued good response 2) UTI --s/p antibiotics; full course completed --Urine cultures reviewed with sensitivities --Amoxicillin 500mg BID due to susceptibility of enterococcus day 04/19 3) CAD --Continue Plavix 75mg qDaily --Continue Lipitor 10mg HS --ASA 81mg qdaily 4) Pre-diabetes --Diet controlled --diabetic/sodium controlled diet --Last A1c 6.5 5) CKD --Most likely 2/2 cardiorenal syndrome --Cr at baseline (2.1) --Avoid nephrotoxic agents --Trend BMP FEN Fluids: Avoid due to hypervolemic state Electrolyte Abnormalities: Hypokalemia; repleted with 40mEq KCl oral solution bID Nutrition: Sodium controlled, diabetic diet PPX DVT - mod risk - SCDs Dispo: continue tele floor; d/c planning tomorrow AM prior to noon Case discussed with Dr. Niecy Joyner, DO - Internal Medicine PGY-1 Visit type - Emergency Visit Emergency Visit: No - New Patient This patient is new to me today: No - Critical Care Critical Care patient: No
--- NOTE | 2017-10-22 14:00 | PN ---
Teaching Attending Note Name of Resident: Aleksandr Joyner ATTENDING PHYSICIAN STATEMENT I saw and evaluated the patient. I reviewed the resident's note and discussed the case with the resident. I agree with the resident's findings and plan as documented. SUBJECTIVE:no complaints. wants to go home. denies Cp, SOB, fever, chills, cough , leg pain OBJECTIVE: Last Vital Signs Temp Pulse Resp BP Pulse Ox 98.3 F 71 18 118/69 98 10/22/17 13:23 10/22/17 13:23 10/22/17 13:23 10/22/17 13:23 10/22/17 09:00 Intake & Output 10/19/17 10/20/17 10/21/17 10/22/17 23:59 23:59 23:59 23:59 Intake Total 690 480 270 100 Output Total 4700 3400 2500 1000 Balance -4010 -6080 -2230 -900 Weight 165 lb 8 oz 157 lb 6.4 oz 156 lb 6.4 oz 176 lb 6 oz General NAD refused lung exam as he states nothing is wrong with his lungs Abdomen +distended. soft Extremities trace pitting edema ASSESSMENT AND PLAN: 87 year old man with a history of CAD s/p CABG & stents, chronic systolic heart failure s/p AICD, HTN, hyperlipidemia, CKD who presents to the ED with leg swelling. 1. Acute on chronic systolic heart failure exacerbation with anasarca- clinically improved. believe he mustve used different scale to explain significant weight change. extremity edema mostly gone. now off dobutamine ggt. on lasix 80mg IV. can likely convert to po today. will d/w cardio dosing for home as was on 60mg BID at home with frequent re-hospitalization. now on metalazone. uptitrated coreg this hospital stay. cont spirolactone, coreg 2. Severe ischemic cardiomyopathy- on asa/plavix 3. Acute on Chronic CKD suspect from poor perfusion and CHF- now stabilized. will transition lasix to po. 4. Ascitis, suspect from volume overload- resolved 5. Lower uncomplicated E. faecalis UTI - completed abx course 6. Hypokalemia- resolved 7. chronic Thrombocytopenia- stable 8. Normocytic anemia- Hgb stable. no signs of bleeding 9. CAD s/p CA/CABG/Stents 10. HTN 11. Hyperlipiemia 12. DVT- scd. hold pharamcologic given thrombocytopenia 13. will d/w cardio if agree with transitioning to po. if agree can d/c today
[2017-10-22] MEDS: MELATONIN 1 MG TABLET PO SCH (21:35)
[2017-10-23] MEDS: CLOPIDOGREL BISULFATE 75 MG TABLET (FP) PO SCH (06:09)
[2017-10-23 06:37] VITALS: TEMP 98.8
[2017-10-23 08:52] VITALS: BP 101/52; PULSE 74
[2017-10-23] MEDS ORDERED: PT OWN MED DRAWER 7, Y5N ONE (09:24)
[2017-10-23] MEDS: ASPIRIN COATED 81 MG TABLET.EC PO SCH (09:27)
[2017-10-23] MEDS: SPIRONOLACTONE 25 MG TABLET (FP) PO SCH (09:27)
[2017-10-23] MEDS: POLYETHYLENE GLYCOL 3350 119 GM BTL PO SCH (09:27)
[2017-10-23] MEDS: guaiFENesin 600 MG TABLET.ER (FP) PO SCH (09:27)
[2017-10-23] MEDS: CARVEDILOL 12.5 MG TABLET (FP) PO SCH (09:28)
[2017-10-23] MEDS: POTASSIUM CHLORIDE ORAL LIQUID 20 MEQ/15 ML PO SCH (09:28)
--- NOTE | 2017-10-23 10:22 | DS ---
Physical Exam: SUBJECTIVE: Patient seen and examined OBJECTIVE: Vital Signs Period Temp Pulse Resp BP Sys/العلي Pulse Ox Last 24 Hr 98.2 F-98.8 F 71-79 18-20 93-118/46-69 96 PHYSICAL EXAM GENERAL: The patient is awake, alert, and fully oriented, in no acute distress. HEAD: Normal with no signs of trauma. EYES: PERRL, extraocular movements intact, sclera anicteric, conjunctiva clear. ENT: Ears normal, nares patent, oropharynx clear without exudates, moist mucous membranes. NECK: Trachea midline, full range of motion, supple. LUNGS: Breath sounds equal, clear to auscultation bilaterally, no wheezes, no crackles, no accessory muscle use. HEART: Regular rate and rhythm, S1, S2 without murmur, rub or gallop. ABDOMEN: Soft, nontender, nondistended, normoactive bowel sounds, no guarding, no rebound, no hepatosplenomegaly, no masses. EXTREMITIES: 2+ pulses, warm, well-perfused, no edema. NEUROLOGICAL: Cranial nerves II through XII grossly intact. Normal speech, gait not observed. PSYCH: Normal mood, normal affect. SKIN: Warm, dry, normal turgor, no rashes or lesions noted. LABS HOSPITAL COURSE: Date of Admission:10/11/17 Date of Discharge: 10/23/17 Discharge Summary Reason For Visit: CHF Current Active Problems CHF (congestive heart failure) (Chronic) Condition: Stable - Instructions Diet, Activity, Other Instructions: RECOMMENDATIONS: You were hospitalized because your heart is weak and you had to have fluid taken off If your swelling comes back please call Dr. Campuzano's office or return to the nearest ER for further evaluation You should weigh yourself daily and notify your cutter out if you see more than a 2 pound increase, you may be instructed to take extra dose of your water pill. You left today at 153 pounds. MEDICATION CHANGES The only medication change after this hospital stay is your Lasix (water pill ) dosage --Please take Lasix 40mg by mouth twice a day; this has been sent to your pharmacy for pick-up --If you develop dizziness or lightheadedness you may be dehydrate so please sit down and drink some water briefly. If this does not resolve, please seek medical attention Meclizine FOLLOW-UPs: Please follow-up with Dr. Casey, your primary care doc, to follow your medical problems Please follow-up with Dr. Campuzano in 1-2 weeks for further care of your heart Referrals: Anmol Casey MD [Primary Care Provider] - Kelvin Campuzano MD [Staff Physician] - Disposition: VNS/HOME HEALTH CARE - Home Medications Comprehensive Discharge Medication List: Ambulatory Orders Simvastatin 20 mg PO HS 06/10/17 Clopidogrel Bisulfate [Plavix -] 75 mg PO AM #30 tab 06/21/17 Potassium Chloride 20 meq PO DAILY 06/27/17 Aspirin [Ecotrin] 81 mg PO DAILY #30 tablet. 06/30/17 Furosemide [Lasix -] 60 mg PO BID #60 tablet 07/21/17 Ofloxacin Otic [Floxin Otic -] 5 drop AD BID #1 bottle 07/21/17 Carvedilol 6.25 mg PO HS 08/01/17 Acetaminophen [Tylenol .Regular Strength -] 650 mg PO Q6H PRN #0 tablet Albuterol 0.083% Nebulizer Lena [Ventolin 0.083% Nebulizer Soln -] 1 amp NEB TIDR PRN #0 amp 08/09/17 Alprazolam [Xanax] 0.5 mg PO HS PRN #30 tablet MDD 1 08/09/17 Carvedilol [Coreg -] 3.125 mg PO DAILY@0700 #30 tablet 08/09/17 Meclizine HCl [Antivert -] 25 mg PO BID tablet 08/09/17 Polyethylene Glycol 3350 [Miralax 119 gm Btl -] 17 gm PO DAILY bottle 08/09/17 Spironolactone [Aldactone -] 25 mg PO DAILY tablet 08/09/17 Melatonin 3 mg PO DAILY 09/23/17 Meclizine HCl [Antivert -] 25 mg PO Q8H PRN #90 tablet 10/23/17 - Discharge Referral Referred to [facility] No
--- NOTE | 2017-10-23 11:37 | PN ---
Teaching Attending Note Name of Resident: Aleksandr Joyner ATTENDING PHYSICIAN STATEMENT I saw and evaluated the patient. I reviewed the resident's note and discussed the case with the resident. I agree with the resident's findings and plan as documented. SUBJECTIVE:episode of dizzyness this Am after toileting. states it lasted only 1 second. denies Cp, SOB, fever, chills, N/V/C/D OBJECTIVE: Last Vital Signs Temp Pulse Resp BP Pulse Ox 98.8 F 74 18 101/52 96 10/23/17 06:35 10/23/17 08:51 10/23/17 09:00 10/23/17 08:51 10/23/17 09:00 Intake & Output 10/20/17 10/21/17 10/22/17 10/23/17 23:59 23:59 23:59 23:59 Intake Total 480 270 980 400 Output Total 3400 2500 2100 400 Balance -2920 -2230 -1120 0 Weight 157 lb 6.4 oz 156 lb 6.4 oz 156 lb 6 oz 153 lb 8 oz General NAD refused lung exam as he states nothing is wrong with his lungs Abdomen +distended. soft Extremities no pitting edema ASSESSMENT AND PLAN: 87 year old man with a history of CAD s/p CABG & stents, chronic systolic heart failure s/p AICD, HTN, hyperlipidemia, CKD who presents to the ED with leg swelling. 1. Acute on chronic systolic heart failure exacerbation with anasarca- clinically improved. 3 lb weight loss yesterday. will transition to lasix po. cardio recommend 80mg po daily but will switch to 40mg BID due to low BP this am and dizzness. cont metaolzaone and increased coreg dosing. educated importance of daily weights at home and notify cardio for any increase in weight more than 2 lbs. [facility] need [facility] next week. cont spirolactone, coreg 2. Dizzyness- posisble vasovagal but also hypotensive this AM. orthostatics checked and negative. BP improved and no longer symptomatic. 3. Severe ischemic cardiomyopathy- on asa/plavix 4. Acute on Chronic CKD suspect from poor perfusion and CHF- now stabilized. will transition lasix to po. 5. Ascitis, suspect from volume overload- resolved 6. Lower uncomplicated E. faecalis UTI - completed abx course 7. Hypokalemia- resolved 8. chronic Thrombocytopenia- stable 9. Normocytic anemia- Hgb stable. no signs of bleeding 10. CAD s/p MA/CABG/Stents 11. HTN 12. Hyperlipiemia 13. DVT- scd. hold pharamcologic given thrombocytopenia 14.d/c home today
[2017-10-23] MEDS ORDERED: FUROSEMIDE 40 MG TABLET (FP) PO SCH (14:00)
== END 2017-10-23 11:47 | disposition home health service (06) | DRG 291 ==
LOC: JER 14:31 → JERBED 20:40 → J7W 10-12 18:01 → J4S 10-15 16:02 → J4W 10-16 17:45
PROVIDERS: ADMIT Internal Medicine; ATTEND Internal Medicine
DX: I13.0 Hypertensive heart and chronic kidney disease with heart failure and stage 1 through stage 4 chronic kidney disease, or unspecified chronic kidney disease (principal); I50.23 Acute on chronic systolic (congestive) heart failure; N18.4 Chronic kidney disease, stage 4 (severe); N39.0 Urinary tract infection, site not specified; J84.9 Interstitial pulmonary disease, unspecified; R18.8 Other ascites; E78.5 Hyperlipidemia, unspecified; I25.10 Atherosclerotic heart disease of native coronary artery without angina pectoris; Z95.1 Presence of aortocoronary bypass graft; I25.2 Old myocardial infarction; Z95.810 Presence of automatic (implantable) cardiac defibrillator; R73.03 Prediabetes; J44.9 Chronic obstructive pulmonary disease, unspecified; F41.9 Anxiety disorder, unspecified; N18.9 Chronic kidney disease, unspecified; E87.6 Hypokalemia; I44.7 Left bundle-branch block, unspecified; D64.9 Anemia, unspecified; D69.6 Thrombocytopenia, unspecified; R14.0 Abdominal distension (gaseous); I36.1 Nonrheumatic tricuspid (valve) insufficiency; I25.5 Ischemic cardiomyopathy; B95.2 Enterococcus as the cause of diseases classified elsewhere; I34.0 Nonrheumatic mitral (valve) insufficiency; I95.9 Hypotension, unspecified
CPT/HCPCS: 36415; 70450-TC; 71010-TC; 71020-TC; 71045-TC; 76700-TC; 80048; 80053; 81003; 81015; 82550; 82728; 83540; 83550; 83735; 83880; 84100; 84132; 84484; 85025; 85027; 85610; 85730; 87086; 87186; 93005; 93010; 93306-TC; 94640; 99284-25; J1250; J1644

== ENCOUNTER 2017-10-25 16:06 | Emergency (ER) | payer OTHER ==
[2017-10-25 17:03] VITALS: TEMP 97.9; BMI 24.5
--- NOTE | 2017-10-25 17:10 | PDOC ---
History of Present Illness - General History Source: Patient, Family, Old Records Exam Limitations: No Limitations - History of Present Illness Initial Comments: 10/25/17 17:40 The patient is an 87 year old male with pat medical history of hypertension, hyperlipidemia, CHF, CAD s/p CABG/stenting, s/p pacemaker, NSTEMI, COPD, BPH and hearing loss who presents to the ED with complaints of dizziness that began yesterday while at home. The patient states that his dizziness is only present upon ambulation and is better when he lays flat, however he is unable to ambulate. He reports taking Meclizine for it without any relief. As per notes written by patients family, the patient was complaining of shortness of breath and bilateral leg swelling as well as confusion and is in need of senior care placement. The patient was discharged from the hospital two days ago where he was admitted for similar symptoms which had improved throughout his stay. The patient denies any other complaints aside from the dizziness. <Shahida Flor - Last Filed: 10/25/17 20:03> <Lovely Ellis - Last Filed: 10/25/17 23:15> - General Chief Complaint: Edema Stated Complaint: SOB Time Seen by Provider: 10/25/17 17:10 Past History <Shahida Flor - Last Filed: 10/25/17 20:03> - Past Medical History Anemia: No Asthma: No Cancer: No Cardiac Disorders: Yes (CABG (5 years ago), CAD, [place] w/ stent) CVA: No COPD: Yes CHF: Yes Dementia: No Diabetes: No GI Disorders: No Disorders: No HTN: Yes Hypercholesterolemia: Yes Liver Disease: No Psychiatric Problems: Yes (anxiety, insomnia) Seizures: No Thyroid Disease: No - Surgical History Abdominal Surgery: No Appendectomy: No Cardiac Surgery: Yes (OPEN HEART SX, cardiac stent 05/30, AICD 05/30) Cholecystectomy: No Lung Surgery: No Neurologic Surgery: Yes Orthopedic Surgery: No - Immunization History Immunization Up to Date: Yes - Suicide/Smoking/Psychosocial Hx Smoking Status: No Smoking History: Unknown if ever smoked Have you smoked in the past 12 months: No Number of Cigarettes Smoked Daily: 0 If you are a former smoker, when did you quit?: 35 years ago Cigars Per Day: 0 Information on smoking cessation initiated: No Hx Alcohol Use: No Drug/Substance Use Hx: No Substance Use Type: None Hx Substance Use Treatment: No <RhondaLovely connelly - Last Filed: 10/25/17 23:15> - Past Medical History Allergies/Adverse Reactions: Allergies Allergy/AdvReac Type Severity Reaction Status Date / Time amoxicillin trihydrate AdvReac Mild gi upset Verified 10/25/17 17:03 [From Augmentin] atorvastatin calcium AdvReac Mild gi upset Verified 10/25/17 17:03 [From Lipitor] potassium clavulanate AdvReac Mild gi upset Verified 10/25/17 17:03 [From Augmentin] Home Medications: Ambulatory Orders Simvastatin 20 mg PO HS 06/10/17 Clopidogrel Bisulfate [Plavix -] 75 mg PO AM #30 tab 06/21/17 Potassium Chloride 20 meq PO DAILY 06/27/17 Aspirin [Ecotrin] 81 mg PO DAILY #30 tablet. 06/30/17 Furosemide [Lasix -] 60 mg PO BID #60 tablet 07/21/17 Ofloxacin Otic [Floxin Otic -] 5 drop AD BID #1 bottle 07/21/17 Carvedilol 6.25 mg PO HS 08/01/17 Acetaminophen [Tylenol .Regular Strength -] 650 mg PO Q6H PRN #0 tablet Albuterol 0.083% Nebulizer Lena [Ventolin 0.083% Nebulizer Soln -] 1 amp NEB TIDR PRN #0 amp 08/09/17 Alprazolam [Xanax] 0.5 mg PO HS PRN #30 tablet MDD 1 08/09/17 Carvedilol [Coreg -] 3.125 mg PO DAILY@0700 #30 tablet 08/09/17 Meclizine HCl [Antivert -] 25 mg PO BID tablet 08/09/17 Polyethylene Glycol 3350 [Miralax 119 gm Btl -] 17 gm PO DAILY bottle 08/09/17 Spironolactone [Aldactone -] 25 mg PO DAILY tablet 08/09/17 Melatonin 3 mg PO DAILY 09/23/17 Meclizine HCl [Antivert -] 25 mg PO Q8H PRN #90 tablet 10/23/17 Review of Systems - Review of Systems Able to Perform ROS?: Yes Comments:: 10/25/17 17:40 GENERAL/CONSTITUTIONAL: No fever or chills. No weakness. HEAD, EYES, EARS, NOSE AND THROAT: No change in vision. No ear pain or discharge. No sore throat. CARDIOVASCULAR: Present:shortness of breath, peripheral edema No chest pain. RESPIRATORY: No cough, wheezing, or hemoptysis. GASTROINTESTINAL: No nausea, vomiting, diarrhea or constipation. GENITOURINARY: No dysuria, frequency, or change in urination. MUSCULOSKELETAL: No joint or muscle swelling or pain. No neck or back pain. SKIN: No rash NEUROLOGIC: Present: dizziness No headache, loss of consciousness, or change in strength/sensation. ENDOCRINE: No increased thirst. No abnormal weight change. HEMATOLOGIC/LYMPHATIC: No anemia, easy bleeding, or history of blood clots. ALLERGIC/IMMUNOLOGIC: No hives or skin allergy. All Other Systems: Reviewed and Negative <Shahida Flor - Last Filed: 10/25/17 20:03> *Physical Exam - Vital Signs Last Vital Signs Temp Pulse Resp BP Pulse Ox 97.9 F 74 18 119/57 100 10/25/17 16:06 10/25/17 16:06 10/25/17 16:06 10/25/17 16:06 10/25/17 16:06 - Physical Exam Comments: 10/25/17 17:46 GENERAL: Awake, alert, and fully oriented, in no acute distress HEAD: No signs of trauma EYES: PERRLA, EOMI, sclera anicteric, conjunctiva clear ENT: Auricles normal inspection, hearing grossly normal, nares patent, oropharynx clear without exudates. Moist mucosa NECK: Normal ROM, supple, no lymphadenopathy, JVD, or masses LUNGS: Breath sounds equal, rhonchi present at bilateral bases. HEART: Regular rate and rhythm, normal S1 and S2, no murmurs, rubs or gallops ABDOMEN: Soft, nontender, normoactive bowel sounds. No guarding, no rebound. No masses EXTREMITIES: 1+ bilateral pitting edema up to knees. Normal range of motion. No clubbing or cyanosis. No cords, erythema, or tenderness NEUROLOGICAL: Cranial nerves II through XII grossly intact. Normal speech, unsteady gait SKIN: Warm, Dry, normal turgor, no rashes or lesions noted. <Shahida Flor - Last Filed: 10/25/17 20:03> - Vital Signs Last Vital Signs Temp Pulse Resp BP Pulse Ox 97.9 F 74 18 119/57 100 10/25/17 16:06 10/25/17 16:06 10/25/17 16:06 10/25/17 16:06 10/25/17 16:06 <Lovely Ellis - Last Filed: 10/25/17 23:15> ED Treatment Course - LABORATORY CBC & Chemistry Diagram: 10/25/17 18:00 10/25/17 18:00 - RADIOLOGY Radiograph Interpretation: 10/25/17 20:03 Chest X-ray as reviewed by Dr. Doyle reports stable enlargement of cardiac silhouette. Mild to moderate pulmonary vascular congestion. No sizeable pleural effusion. Left lung base, portions of lingula and left lateral costophrenic angle are excluded from the field of view and cannot be assessed. <Shahida Flor - Last Filed: 10/25/17 20:03> - LABORATORY CBC & Chemistry Diagram: 10/25/17 18:00 10/25/17 21:15 <Lovely Ellis - Last Filed: 10/25/17 23:15> Medical Decision Making - Medical Decision Making 10/25/17 21:23 Pt presents to the ED complaining of dizziness. States that he was recently admitted for CHF exacerbation and discharged two days ago, but that he has had recurrent episodes of dizziness since his discharge. The dizziness reported by the patient seems to be more consistent with vertigo than lightheadness. Will check labs to rule out electrolyte derrangement and reassess. 10/25/17 21:23 10/25/17 23:13 Symptoms are resolved after meclizine. Patient ambulates with a walker at baseline, and is able to ambulate in the ED with a fairly steady gait. Want to go home. WIll discharge home. <Lovely Ellis - Last Filed: 10/25/17 23:15> *DC/Admit/Observation/Transfer - Attestations Scribe Attestion: 10/25/17 17:50 Documentation prepared by Shahida Flor, acting as medical education specialist for Lovely Ellis MD. <Shahida Flor - Last Filed: 10/25/17 20:03> - Discharge Dispostion Admit: No <RhondaLovely - Last Filed: 10/25/17 23:15> Diagnosis at time of Disposition: Vertigo - Discharge Dispostion Disposition: HOME Condition at time of disposition: Good - Referrals Referrals: Anmol Casey MD [Primary Care Provider] - - Patient Instructions Printed Discharge Instructions: DI for Vertigo - Post Discharge Activity
[2017-10-25 18:27] LABS: BASO % 0.6 % (0-2.0); EOS % 5.6 % (0-4.5); HEMATOCRIT 33.6 % (35.4-49); HEMOGLOBIN 10.8 GM/dL (11.7-16.9); LYMPH % 16.1 % (8-40); MCH 25.8 pg (25.7-33.7); MCHC 32.1 g/dl (32.0-35.9); MEAN CELL VOLUME 80.3 fl (80-96); MEAN PLT VOLUME 10.1 fl (7.5-11.1); MONO % 12.4 % (3.8-10.2); NEUT % 65.3 % (42.8-82.8); PLATELET COUNT 135 K/MM3 (134-434); RBC 4.18 M/mm3 (4.00-5.60)
[2017-10-25 18:34] LABS: ADD RBC MORPHOLOGY YES
[2017-10-25 19:28] VITALS: BP 131/70; PULSE 78
[2017-10-25] MEDS ORDERED: MECLIZINE HCL 25 MG TABLET (FP) PO ONE (20:22)
[2017-10-25] MEDS ORDERED: MECLIZINE HCL 25 MG TABLET (FP) ONE (20:35)
[2017-10-25 21:58] LABS: ALBUMIN 3.8 g/dl (3.4-5.0); ANION GAP 10 (8-16); BILIRUBIN,TOTAL 1.3 mg/dL (0.2-1.0); BLOOD UREA NITROGEN 83 mg/dL (7-18); CALCIUM 8.3 mg/dL (8.5-10.1); CHLORIDE 93 mmol/L (98-107); CO2 27 mmol/L (21-32); CREATININE 2.3 mg/dL (0.7-1.3); GLUCOSE,RANDOM 103 mg/dL (74-106); POTASSIUM 3.9 mmol/L (3.5-5.1); SGOT/AST 18 U/L (15-37); SGPT/ALT 14 U/L (12-78); SODIUM 130 mmol/L (136-145); TOT PROT 7.7 g/dl (6.4-8.2)
[2017-10-25 22:00] LABS: ALK PHOS 95 U/L (45-117)
[2017-10-26 01:10] LABS: ANISOCYTOSIS 1+
[2017-10-26 01:11] LABS: PLATELET ESTIMATE SLT DECREASE
--- NOTE | 2017-10-31 12:34 | EKG ---
Test Reason : Blood Pressure : / mmHG Vent. Rate : 075 BPM Atrial Rate : 075 BPM P-R Int : 154 ms QRS Dur : 136 ms QT Int : 442 ms P-R-T Axes : 007 -56 138 degrees QTc Int : 493 ms SINUS RHYTHM WITH OCCASIONAL PREMATURE VENTRICULAR COMPLEXES LEFT AXIS DEVIATION LEFT BUNDLE BRANCH BLOCK ABNORMAL ECG WHEN COMPARED WITH ECG OF 11-OCT-2017 17:51, T WAVE INVERSION MORE EVIDENT IN LATERAL LEADS Confirmed by GABRIELLA SALAS, CHARLEE ([id number]) on 10/31/2017 12:33:54 PM Referred By: Confirmed By:CHARLEE QUIROZ MD
== END 2017-10-26 02:07 | disposition home or self-care (01) ==
LOC: JER 16:06 → SUPCPDRO 16:06 → JER 10-26 02:07
PROC: 3E033GC Introduction of Other Therapeutic Substance into Peripheral Vein, Percutaneous Approach (ICD-10-PCS; principal; 2017-10-25)
DX: R62.7 Adult failure to thrive (principal); R51 Headache; I25.2 Old myocardial infarction; I25.10 Atherosclerotic heart disease of native coronary artery without angina pectoris; I11.0 Hypertensive heart disease with heart failure; Z95.1 Presence of aortocoronary bypass graft; Z95.5 Presence of coronary angioplasty implant and graft; Z95.810 Presence of automatic (implantable) cardiac defibrillator; J44.9 Chronic obstructive pulmonary disease, unspecified; F41.9 Anxiety disorder, unspecified; G47.00 Insomnia, unspecified
CPT/HCPCS: 36415; 71045-TC; 80053; 82550; 84484; 85025; 93005; 93010; 96374; 99283-25; G0378

== ENCOUNTER 2017-10-26 12:23 | Observation (INO) | payer OTHER ==
[2017-10-26 12:42] VITALS: BMI 27.2
[2017-10-26] MEDS ORDERED: METOCLOPRAMIDE HCL INJECTION 10 MG/2 ML VIAL IVPB ONE (12:56)
[2017-10-26] MEDS ORDERED: ACETAMINOPHEN 325 MG TABLET (FP) PO ONE (12:56)
--- NOTE | 2017-10-26 13:08 | PDOC ---
History of Present Illness - General Chief Complaint: Lightheaded Stated Complaint: HEADACHE/WEAKNESS Time Seen by Provider: 10/26/17 12:48 History Source: Patient - History of Present Illness Timing/Duration: reports: other Past History - Past Medical History Allergies/Adverse Reactions: Allergies Allergy/AdvReac Type Severity Reaction Status Date / Time amoxicillin trihydrate AdvReac Mild gi upset Verified 10/26/17 12:33 [From Augmentin] atorvastatin calcium AdvReac Mild gi upset Verified 10/26/17 12:33 [From Lipitor] potassium clavulanate AdvReac Mild gi upset Verified 10/26/17 12:33 [From Augmentin] Home Medications: Ambulatory Orders Simvastatin 20 mg PO HS 06/10/17 Clopidogrel Bisulfate [Plavix -] 75 mg PO AM #30 tab 06/21/17 Potassium Chloride 20 meq PO DAILY 06/27/17 Aspirin [Ecotrin] 81 mg PO DAILY #30 tablet. 06/30/17 Furosemide [Lasix -] 60 mg PO BID #60 tablet 07/21/17 Ofloxacin Otic [Floxin Otic -] 5 drop AD BID #1 bottle 07/21/17 Carvedilol 6.25 mg PO HS 08/01/17 Acetaminophen [Tylenol .Regular Strength -] 650 mg PO Q6H PRN #0 tablet Albuterol 0.083% Nebulizer Lena [Ventolin 0.083% Nebulizer Soln -] 1 amp NEB TIDR PRN #0 amp 08/09/17 Alprazolam [Xanax] 0.5 mg PO HS PRN #30 tablet MDD 1 08/09/17 Carvedilol [Coreg -] 3.125 mg PO DAILY@0700 #30 tablet 08/09/17 Meclizine HCl [Antivert -] 25 mg PO BID tablet 08/09/17 Polyethylene Glycol 3350 [Miralax 119 gm Btl -] 17 gm PO DAILY bottle 08/09/17 Spironolactone [Aldactone -] 25 mg PO DAILY tablet 08/09/17 Melatonin 3 mg PO DAILY 09/23/17 Meclizine HCl [Antivert -] 25 mg PO Q8H PRN #90 tablet 10/23/17 Acetaminophen [Tylenol] 650 mg PO Q6H #30 tablet 10/26/17 Anemia: No Asthma: No Cancer: No Cardiac Disorders: Yes (CABG (5 years ago), CAD, [place] w/ stent) CVA: No COPD: Yes CHF: Yes Dementia: No Diabetes: No GI Disorders: No Disorders: No HTN: Yes Hypercholesterolemia: Yes Liver Disease: No Psychiatric Problems: Yes (anxiety, insomnia) Seizures: No Thyroid Disease: No - Surgical History Abdominal Surgery: No Appendectomy: No Cardiac Surgery: Yes (OPEN HEART SX, cardiac stent 05/30, AICD 05/30) Cholecystectomy: No Lung Surgery: No Neurologic Surgery: Yes Orthopedic Surgery: No - Immunization History Immunization Up to Date: Yes - Suicide/Smoking/Psychosocial Hx Smoking Status: No Smoking History: Former smoker Have you smoked in the past 12 months: No Number of Cigarettes Smoked Daily: 0 If you are a former smoker, when did you quit?: 30 YRS. Cigars Per Day: 0 Information on smoking cessation initiated: No Hx Alcohol Use: No Drug/Substance Use Hx: No Substance Use Type: None Hx Substance Use Treatment: No Review of Systems - Review of Systems Constitutional: No: Chills, Fever, Unintentional Wgt. Loss HEENTM: No: Blurred Vision ABD/GI: No: Nausea, Vomiting Neurological: Yes: Headache. No: Numbness, Paresthesia, Weakness, Dizziness *Physical Exam - Vital Signs Last Vital Signs Temp Pulse Resp BP Pulse Ox 97.8 F 76 20 125/81 99 10/26/17 12:29 10/26/17 12:29 10/26/17 12:29 10/26/17 12:29 10/26/17 12:29 - Physical Exam General Appearance: Yes: Appropriately Dressed. No: Apparent Distress HEENT: positive: Normal Voice Neck: positive: Supple Respiratory/Chest: negative: Respiratory Distress Integumentary: positive: Dry, Warm Neurologic: positive: Fully Oriented, Alert, Normal Mood/Affect, Motor Strength 5/5, Finger to Nose. negative: Facial Droop, Disoriented ED Treatment Course - LABORATORY CBC & Chemistry Diagram: 10/26/17 15:34 10/26/17 15:34 Medical Decision Making - Medical Decision Making 10/26/17 13:07 87-year-old male history of CAD, [place], CABG, stents, CHF, AICD, hypertension, hyperlipidemia, chronic kidney disease, vertigo, ambulates w/ walker, here with headache. Patient states he's had diffuse headache for almost a year and admits that it has not changed in baseline and is unclear as to why he came into ED today. No dizziness, visual changes, slurred speech, focal weakness, chest pain or shortness of breath at this time. Of note, patient was seen in ED yesterday for dizziness that improved with meclizine. States he mentioned headache to ED staff, though no documentation of headache in chart. Patient is status post head CT a week ago after fall while admitted for CHF at [facility] See exam Chronic headache Poor historian and unclear as to why presented today Well-appearing and stable with no focal deficits S/p negative CT head last week while admitted for CHF -Pain control in ED and reassess -Anticipate discharge with neurology follow-up 10/26/17 14:06 Pt reports feeling better with meds. Remained well-appearing and was able to tolerate po in ED. Case discussed with Dr. Gloria who agrees with discharge with neurology follow-up. Spoke to family to confirm that someone will be home if and when patient returns to his residence. Patient's brother and daughter now tells me that Dr Foss who is covering for pt's pulm Dr Knowles, wanted patient to be admitted for unclear reasons. Will contact Dr. Foss to discuss as there is currently no medical reason to admit pt at this time 10/26/17 14:[address] Foss, states patient's family contacted him to inform him that patient was having some shortness of breath at home and also mention to M.D. that they do not feel that they can adequately care for patient at home and is interested in having patient placed in a long-term care facility. I made M.D. aware that currently there is no medical need to admit patient but will have case finishing machine adjuster evaluate pt for possible placement. 10/26/17 15:08 Case discussed with case finishing machine adjuster who states patient meets criteria for PCI ( correction placement) at this time. Recommends admitting to observation. States patient will also be evaluated by PT in am 10/26/17 15:58 Case discussed with hospitalist and patient admitted *DC/Admit/Observation/Transfer Diagnosis at time of Disposition: FTT (failure to thrive) in adult Chronic headache Qualifiers: Headache type: unspecified Intractability: not intractable Qualified Code(s): R51 - Headache - Discharge Dispostion Condition at time of disposition: Good Admit: Yes - Prescriptions Prescriptions: Acetaminophen [Tylenol] 650 mg PO Q6H #30 tablet - Referrals Referrals: Elian Sneed MD [Staff Physician] - - Patient Instructions Printed Discharge Instructions: DI for Headache Additional Instructions: Reasons for your chronic headache are unclear at this time, but there was no evidence of a serious condition in ED. Please follow-up with neurology for further evaluation. Take Tylenol as needed for headache - Post Discharge Activity
[2017-10-26] MEDS ORDERED: METOCLOPRAMIDE HCL INJECTION 10 MG/2 ML VIAL ONE (13:20)
--- NOTE | 2017-10-26 13:20 | PDOC ---
*Physical Exam - Vital Signs Last Vital Signs Temp Pulse Resp BP Pulse Ox 97.8 F 76 20 125/81 99 10/26/17 12:29 10/26/17 12:29 10/26/17 12:29 10/26/17 12:29 10/26/17 12:29 - Physical Exam Comments: 10/26/17 13:20 The patient was examined by [TEJAL Clark] under my direct supervision. I personally evaluated the patient. I concur with the above findings and the plan of care.
[2017-10-26] MEDS ORDERED: ACETAMINOPHEN 325 MG TABLET (FP) ONE (13:21)
[2017-10-26 15:52] LABS: BASO % 2.3 % (0-2.0); EOS % 4.6 % (0-4.5); HEMATOCRIT 32.2 % (35.4-49); HEMOGLOBIN 10.6 GM/dL (11.7-16.9); LYMPH % 19.2 % (8-40); MCH 26.3 pg (25.7-33.7); MCHC 33.1 g/dl (32.0-35.9); MEAN CELL VOLUME 79.7 fl (80-96); NEUT % 60.9 % (42.8-82.8); PLATELET COUNT 126 K/MM3 (134-434); RBC 4.04 M/mm3 (4.00-5.60); RDW 24.1 % (11.9-15.9)
[2017-10-26 16:11] LABS: ANION GAP 9 (8-16); BLOOD UREA NITROGEN 86 mg/dL (7-18); CALCIUM 8.1 mg/dL (8.5-10.1); CHLORIDE 93 mmol/L (98-107); CO2 30 mmol/L (21-32); CREATININE 2.6 mg/dL (0.7-1.3); GLUCOSE,RANDOM 125 mg/dL (74-106); POTASSIUM 3.8 mmol/L (3.5-5.1); SGOT/AST 20 U/L (15-37); SODIUM 132 mmol/L (136-145); TOT PROT 8.1 g/dl (6.4-8.2)
[2017-10-26 16:19] LABS: ALK PHOS 108 U/L (45-117); SGPT/ALT 17 U/L (12-78)
[2017-10-26 19:09] VITALS: BP 140/72; PULSE 80; TEMP 98
--- NOTE | 2017-10-26 19:19 | HP ---
CHIEF COMPLAINT: I did not ask to come to the hospital. PCP: Dr. Casey HISTORY OF PRESENT ILLNESS: 87 year-old man with multiple co-morbidities who was admitted from 10/11/17 to for acute on chronic systolic heart failure and acute on chronic renal insufficiency. Patient was discharged to home with [facility] in place. His brother Torsten picked him up and brought him to his home in [place]. Patient lives alone but his brother frequently stays with him. Patient and brother relate the following. On the early evening of 10/25/17, EMS arrived at patient's door to say that he needed to go to the hospital. According to Torsten, patient's daughter was very upset about the patient's discharge to home as she believes patient should be in a facility. It is alleged by Torsten and the patient that the daughter activated EMS without seeing or consulting with the patient. Patient obliged EMS and go in the ambulance. He was seen in the ED and treated with a dose of meclizine for dizziness. He was discharged from the ED in the [facility] hours today, 10/26/17. His brother drove him home. About 12 hours later, EMS again appeared at patient's door and again said his family and his doctor wanted him to go to the hospital. Patient again obliged. He was seen in the ED. According to the chart, the ED physician discussed situation with patient's physician who stated, "patient's family contacted him to inform him that patient was having some shortness of breath at home and also mention to M.D. that they do not feel that they can adequately care for patient at home and is interested in having patient placed in a long-term care facility. I made M.D. aware that currently there is no medical need to admit patient but will have shoe caser evaluate pt for possible placement." Case management was contacted and the following appears in the EMR: "Case discussed with shoe caser who states patient meets criteria for PCI ([facility]cf placement) at this time. Recommends admitting to observation. States patient will also be evaluated by PT in am." On ER course was notable for: (1) (2) (3) Recent Travel: PAST MEDICAL HISTORY: PAST SURGICAL HISTORY: Social History: Smoking: Alcohol: Drugs: Family History: Allergies amoxicillin trihydrate [From Augmentin] Adverse Reaction (Mild, Verified 12:33) gi upset atorvastatin calcium [From Lipitor] Adverse Reaction (Mild, Verified 10/26/17 12 :33) gi upset potassium clavulanate [From Augmentin] Adverse Reaction (Mild, Verified 12:33) gi upset HOME MEDICATIONS: Home Medications Medication Instructions Recorded Simvastatin 20 mg PO HS 06/10/17 Clopidogrel Bisulfate [Plavix -] 75 mg PO AM #30 tab 06/21/17 Potassium Chloride 20 meq PO DAILY 06/27/17 Aspirin [Ecotrin] 81 mg PO DAILY #30 tablet. 06/30/17 Furosemide [Lasix -] 60 mg PO BID #60 tablet 07/21/17 Ofloxacin Otic [Floxin Otic -] 5 drop AD BID #1 bottle 07/21/17 Carvedilol 6.25 mg PO HS 08/01/17 Acetaminophen [Tylenol .Regular 650 mg PO Q6H PRN #0 tablet 08/09/17 Strength -] Albuterol 0.083% Nebulizer Lena 1 amp NEB TIDR PRN #0 amp 08/09/17 [Ventolin 0.083% Nebulizer Soln -] Alprazolam [Xanax] 0.5 mg PO HS PRN #30 tablet MDD 1 08/09/17 Carvedilol [Coreg -] 3.125 mg PO DAILY@0700 #30 tablet 08/09/17 Meclizine HCl [Antivert -] 25 mg PO BID tablet 08/09/17 Polyethylene Glycol 3350 [Miralax 17 gm PO DAILY bottle 08/09/17 119 gm Btl -] Spironolactone [Aldactone -] 25 mg PO DAILY tablet 08/09/17 Melatonin 3 mg PO DAILY 09/23/17 Meclizine HCl [Antivert -] 25 mg PO Q8H PRN #90 tablet 10/23/17 Acetaminophen [Tylenol] 650 mg PO Q6H #30 tablet 10/26/17 REVIEW OF SYSTEMS CONSTITUTIONAL: Absent: fever, chills, diaphoresis, generalized weakness, malaise, loss of appetite, weight change HEENT: Absent: rhinorrhea, nasal congestion, throat pain, throat swelling, difficulty swallowing, mouth swelling, ear pain, eye pain, visual changes CARDIOVASCULAR: Absent: chest pain, syncope, palpitations, irregular heart rate, lightheadedness , peripheral edema RESPIRATORY: Absent: cough, shortness of breath, dyspnea with exertion, orthopnea, wheezing, stridor, hemoptysis GASTROINTESTINAL: Absent: abdominal pain, abdominal distension, nausea, vomiting, diarrhea, constipation, melena, hematochezia GENITOURINARY: Absent: dysuria, frequency, urgency, hesitancy, hematuria, flank pain, genital pain MUSCULOSKELETAL: Absent: myalgia, arthralgia, joint swelling, back pain, neck pain SKIN: Absent: rash, itching, pallor HEMATOLOGIC/IMMUNOLOGIC: Absent: easy bleeding, easy bruising, lymphadenopathy, frequent infections ENDOCRINE: Absent: unexplained weight gain, unexplained weight loss, heat intolerance, cold intolerance NEUROLOGIC: Absent: headache, focal weakness or paresthesias, dizziness, unsteady gait, seizure, mental status changes, bladder or bowel incontinence PSYCHIATRIC: Absent: anxiety, depression, suicidal or homicidal ideation, hallucinations. PHYSICAL EXAMINATION Vital Signs - 24 hr 10/26/17 10/26/17 10/26/17 12:29 17:14 18:03 Temperature 97.8 F 98.1 F Pulse Rate 76 Pulse Rate [ 72 84 Apical] Respiratory 20 20 20 Rate Blood Pressure 125/81 Blood Pressure 129/76 122/75 [Left Arm] O2 Sat by Pulse 99 100 99 Oximetry (%) 10/26/17 19:06 Temperature 98.0 F Pulse Rate 80 Pulse Rate [ Apical] Respiratory 20 Rate Blood Pressure 140/72 Blood Pressure [Left Arm] O2 Sat by Pulse 98 Oximetry (%) GENERAL: Awake, alert, and fully oriented, in no acute distress. HEAD: Normal with no signs of trauma. EYES: Pupils equal, round and reactive to light, extraocular movements intact, sclera anicteric, conjunctiva clear. No lid lag. EARS, NOSE, THROAT: Ears normal, nares patent, oropharynx clear without exudates. Moist mucous membranes. NECK: Normal range of motion, supple without lymphadenopathy, JVD, or masses. LUNGS: Breath sounds equal, clear to auscultation bilaterally. No wheezes, and no crackles. No accessory muscle use. HEART: Regular rate and rhythm, normal S1 and S2 without murmur, rub or gallop. ABDOMEN: Soft, nontender, not distended, normoactive bowel sounds, no guarding, no rebound, no masses. No hepatomegaly or splenomegaly. MUSCULOSKELETAL: Normal range of motion at all joints. No bony deformities or tenderness. No CVA tenderness. UPPER EXTREMITIES: 2+ pulses, warm, well-perfused. No cyanosis. No clubbing. No peripheral edema. LOWER EXTREMITIES: 2+ pulses, warm, well-perfused. No calf tenderness. No peripheral edema. NEUROLOGICAL: Cranial nerves II-XII intact. Normal speech. Normal gait. PSYCHIATRIC: Cooperative. Good eye contact. Appropriate mood and affect. SKIN: Warm, dry, normal turgor, no rashes or lesions noted, normal capillary refill. Laboratory Results - last 24 hr 10/26/17 10/26/17 15:34 15:34 WBC 5.0 RBC 4.04 Hgb 10.6 L Hct 32.2 L MCV 79.7 L MCH 26.3 MCHC 33.1 RDW 24.1 H Plt Count 126 L MPV 10.0 Neutrophils % 60.9 Lymphocytes % 19.2 Monocytes % 13.0 H Eosinophils % 4.6 H Basophils % 2.3 H D Sodium 132 L Potassium 3.8 Chloride 93 L Carbon Dioxide 30 Anion Gap 9 BUN 86 H Creatinine 2.6 H Creat Clearance w eGFR 23.47 Random Glucose 125 H D Calcium 8.1 L Total Bilirubin 1.0 D AST 20 ALT 17 D Alkaline Phosphatase 108 Total Protein 8.1 Albumin 4.0 ASSESSMENT/PLAN: CCC met with patient to discuss discharge planning needs. Patient presented as alert, oriented, and self-directing. Patient explained he lives alone in elevator apartment, and regularly uses a walker to ambulate. Patient stated he will be driven home from the hospital by his brother Torsten. [facility] received a call from Manuel (P:[phone]) at [facility], who explained that the patient is active with them. Patient is refusing senior living facility, but stated he is open to being referred back to [facility] at discharge. CCC aware of patient' s pending PT elvaluation. Patient's current plan is to return home with [facility] services.
--- NOTE | 2017-10-26 19:19 | DS ---
Physical Exam: SUBJECTIVE: Patient seen and examined OBJECTIVE: Vital Signs Period Temp Pulse Resp BP Sys/العلي Pulse Ox Last 24 Hr 97.8 F-98.1 F 72-84 20-20 122-140/72-81 98-100 PHYSICAL EXAM GENERAL: The patient is awake, alert, and fully oriented, in no acute distress. HEAD: Normal with no signs of trauma. EYES: PERRL, extraocular movements intact, sclera anicteric, conjunctiva clear. ENT: Ears normal, nares patent, oropharynx clear without exudates, moist mucous membranes. NECK: Trachea midline, full range of motion, supple. LUNGS: Breath sounds equal, clear to auscultation bilaterally, no wheezes, no crackles, no accessory muscle use. HEART: Regular rate and rhythm, S1, S2 without murmur, rub or gallop. ABDOMEN: Soft, nontender, nondistended, normoactive bowel sounds, no guarding, no rebound, no hepatosplenomegaly, no masses. EXTREMITIES: 2+ pulses, warm, well-perfused, no edema. NEUROLOGICAL: Cranial nerves II through XII grossly intact. Normal speech, gait not observed. PSYCH: Normal mood, normal affect. SKIN: Warm, dry, normal turgor, no rashes or lesions noted. LABS Laboratory Results - last 24 hr 10/26/17 10/26/17 15:34 15:34 WBC 5.0 RBC 4.04 Hgb 10.6 L Hct 32.2 L MCV 79.7 L MCH 26.3 MCHC 33.1 RDW 24.1 H Plt Count 126 L MPV 10.0 Neutrophils % 60.9 Lymphocytes % 19.2 Monocytes % 13.0 H Eosinophils % 4.6 H Basophils % 2.3 H D Sodium 132 L Potassium 3.8 Chloride 93 L Carbon Dioxide 30 Anion Gap 9 BUN 86 H Creatinine 2.6 H Creat Clearance w eGFR 23.47 Random Glucose 125 H D Calcium 8.1 L Total Bilirubin 1.0 D AST 20 ALT 17 D Alkaline Phosphatase 108 Total Protein 8.1 Albumin 4.0 HOSPITAL COURSE: Date of Admission:10/26/17 Date of Discharge: 10/26/17 Discharge Summary Reason For Visit: HEADACHE/WEAKNESS Current Active Problems Chronic headache (Acute) FTT (failure to thrive) in adult (Acute) Condition: Good - Instructions Diet, Activity, Other Instructions: Reasons for your chronic headache are unclear at this time, but there was no evidence of a serious condition in ED. Please follow-up with neurology for further evaluation. Take Tylenol as needed for headache Referrals: Elian Sneed MD [Staff Physician] - - Home Medications Comprehensive Discharge Medication List: Ambulatory Orders Simvastatin 20 mg PO HS 06/10/17 Clopidogrel Bisulfate [Plavix -] 75 mg PO AM #30 tab 06/21/17 Potassium Chloride 20 meq PO DAILY 06/27/17 Aspirin [Ecotrin] 81 mg PO DAILY #30 tablet. 06/30/17 Furosemide [Lasix -] 60 mg PO BID #60 tablet 07/21/17 Ofloxacin Otic [Floxin Otic -] 5 drop AD BID #1 bottle 07/21/17 Carvedilol 6.25 mg PO HS 08/01/17 Acetaminophen [Tylenol .Regular Strength -] 650 mg PO Q6H PRN #0 tablet Albuterol 0.083% Nebulizer Lena [Ventolin 0.083% Nebulizer Soln -] 1 amp NEB TIDR PRN #0 amp 08/09/17 Alprazolam [Xanax] 0.5 mg PO HS PRN #30 tablet MDD 1 08/09/17 Carvedilol [Coreg -] 3.125 mg PO DAILY@0700 #30 tablet 08/09/17 Meclizine HCl [Antivert -] 25 mg PO BID tablet 08/09/17 Polyethylene Glycol 3350 [Miralax 119 gm Btl -] 17 gm PO DAILY bottle 08/09/17 Spironolactone [Aldactone -] 25 mg PO DAILY tablet 08/09/17 Melatonin 3 mg PO DAILY 09/23/17 Meclizine HCl [Antivert -] 25 mg PO Q8H PRN #90 tablet 10/23/17 Acetaminophen [Tylenol] 650 mg PO Q6H #30 tablet 10/26/17
--- NOTE | 2017-10-28 11:44 | EKG ---
Test Reason : Blood Pressure : / mmHG Vent. Rate : 076 BPM Atrial Rate : 076 BPM P-R Int : 174 ms QRS Dur : 138 ms QT Int : 446 ms P-R-T Axes : 047 -58 126 degrees QTc Int : 501 ms POOR DATA QUALITY, INTERPRETATION MAY BE ADVERSELY AFFECTED SINUS RHYTHM POSSIBLE LEFT ATRIAL ENLARGEMENT LEFT AXIS DEVIATION LEFT BUNDLE BRANCH BLOCK ABNORMAL ECG WHEN COMPARED WITH ECG OF 25-OCT-2017 19:08, NO SIGNIFICANT CHANGE WAS FOUND Confirmed by CHANTALE DOE MD ([id number]) on 10/28/2017 11:43:46 AM Referred By: Confirmed By:CHANTALE DOE MD
== END 2017-10-26 20:05 | disposition home or self-care (01) ==
LOC: JER 12:23 → INTOOBSV 16:49 → JERBED 16:49 → J6S 19:37
PROVIDERS: ADMIT Internal Medicine; ATTEND Nurse Practitioner Acute Care
PROC: 3E033GC Introduction of Other Therapeutic Substance into Peripheral Vein, Percutaneous Approach (ICD-10-PCS; principal; 2017-10-26)
DX: R62.7 Adult failure to thrive (principal); R51 Headache; I12.9 Hypertensive chronic kidney disease with stage 1 through stage 4 chronic kidney disease, or unspecified chronic kidney disease; N18.9 Chronic kidney disease, unspecified; I25.10 Atherosclerotic heart disease of native coronary artery without angina pectoris; I25.2 Old myocardial infarction; Z95.5 Presence of coronary angioplasty implant and graft; Z95.1 Presence of aortocoronary bypass graft; I50.9 Heart failure, unspecified; J44.9 Chronic obstructive pulmonary disease, unspecified; E78.5 Hyperlipidemia, unspecified; F41.9 Anxiety disorder, unspecified; G47.00 Insomnia, unspecified; Z87.891 Personal history of nicotine dependence; Z95.810 Presence of automatic (implantable) cardiac defibrillator; R26.2 Difficulty in walking, not elsewhere classified; Z99.89 Dependence on other enabling machines and devices
CPT/HCPCS: 36415; 71045-TC; 80053; 85025; 93005; 93010; 96374; 99283-25; G0378

== ENCOUNTER 2017-11-07 12:12 | Inpatient (IN) | payer OTHER ==
[2017-11-07] MEDS: SODIUM CHLORIDE 1,000 ML IV SCH (13:57)
[2017-11-07 14:02] LABS: BASO % 2.3 % (0-2.0); EOS % 4.8 % (0-4.5); HEMATOCRIT 31.9 % (35.4-49); HEMOGLOBIN 10.3 GM/dL (11.7-16.9); LYMPH % 15.4 % (8-40); MCH 27.1 pg (25.7-33.7); MCHC 32.4 g/dl (32.0-35.9); MEAN CELL VOLUME 83.5 fl (80-96); MEAN PLT VOLUME 10.1 fl (7.5-11.1); MONO % 12.2 % (3.8-10.2); NEUT % 65.3 % (42.8-82.8); PLATELET COUNT 136 K/MM3 (134-434); RBC 3.82 M/mm3 (4.00-5.60); RDW 25.3 % (11.9-15.9); WHITE BLOOD COUNT 5.3 K/mm3 (4.0-10.0)
[2017-11-07 14:06] LABS: ALBUMIN 3.6 g/dl (3.4-5.0); ANION GAP 11 (8-16); BILIRUBIN,TOTAL 1.2 mg/dL (0.2-1.0); BLOOD UREA NITROGEN 58 mg/dL (7-18); CALCIUM 9.1 mg/dL (8.5-10.1); CHLORIDE 96 mmol/L (98-107); CO2 27 mmol/L (21-32); GLUCOSE,RANDOM 95 mg/dL (74-106); SGPT/ALT 24 U/L (12-78); SODIUM 134 mmol/L (136-145); TOT PROT 7.8 g/dl (6.4-8.2)
--- NOTE | 2017-11-07 14:07 | PDOC ---
History of Present Illness - General Chief Complaint: Weakness Stated Complaint: PCP SENT Time Seen by Provider: 11/07/17 13:25 History Source: Patient Exam Limitations: No Limitations - History of Present Illness Initial Comments: 11/07/17 13:47 The patient is an 87 M with a PMH of CAD, [place], CABG, stents, CHF, AICD, hypertension, hyperlipidemia, chronic kidney disease, vertigo, ambulates w/ walker, who presents via Dr. Castillo for a direct admission for failure to thrive. The patient was recently discharged from our facility for weakness and says that he has not felt better. He denies any CP, SOB, fever, chills, nausea, vomiting but says he feels dry and weak. His only complaint is generalized weakness. He also denies numbness, tingling, or weakness anywhere. Past History - Past Medical History Allergies/Adverse Reactions: Allergies Allergy/AdvReac Type Severity Reaction Status Date / Time amoxicillin trihydrate AdvReac Mild gi upset Verified 11/07/17 12:43 [From Augmentin] atorvastatin calcium AdvReac Mild gi upset Verified 11/07/17 12:43 [From Lipitor] potassium clavulanate AdvReac Mild gi upset Verified 11/07/17 12:43 [From Augmentin] Home Medications: Ambulatory Orders Simvastatin 20 mg PO HS 06/10/17 Clopidogrel Bisulfate [Plavix -] 75 mg PO AM #30 tab 06/21/17 Potassium Chloride 20 meq PO DAILY 06/27/17 Aspirin [Ecotrin] 81 mg PO DAILY #30 tablet. 06/30/17 Furosemide [Lasix -] 60 mg PO BID #60 tablet 07/21/17 Ofloxacin Otic [Floxin Otic -] 5 drop AD BID #1 bottle 07/21/17 Carvedilol 6.25 mg PO HS 08/01/17 Acetaminophen [Tylenol .Regular Strength -] 650 mg PO Q6H PRN #0 tablet Albuterol 0.083% Nebulizer Lena [Ventolin 0.083% Nebulizer Soln -] 1 amp NEB TIDR PRN #0 amp 08/09/17 Alprazolam [Xanax] 0.5 mg PO HS PRN #30 tablet MDD 1 08/09/17 Carvedilol [Coreg -] 3.125 mg PO DAILY@0700 #30 tablet 08/09/17 Meclizine HCl [Antivert -] 25 mg PO BID tablet 08/09/17 Polyethylene Glycol 3350 [Miralax 119 gm Btl -] 17 gm PO DAILY bottle 08/09/17 Spironolactone [Aldactone -] 25 mg PO DAILY tablet 08/09/17 Melatonin 3 mg PO DAILY 09/23/17 Acetaminophen [Tylenol] 650 mg PO Q6H #30 tablet 10/26/17 Anemia: No Asthma: No Cancer: No Cardiac Disorders: Yes (CABG (5 years ago), CAD, [place] w/ stent) CVA: No COPD: No CHF: Yes Dementia: No Diabetes: No GI Disorders: No Disorders: No HTN: Yes Hypercholesterolemia: Yes Liver Disease: No Psychiatric Problems: Yes (anxiety, insomnia) Seizures: No Thyroid Disease: No - Surgical History Abdominal Surgery: No Appendectomy: No Cardiac Surgery: Yes (OPEN HEART SX, cardiac stent 05/30, AICD 05/30) Cholecystectomy: No Lung Surgery: No Neurologic Surgery: Yes Orthopedic Surgery: No - Immunization History Immunization Up to Date: Yes - Suicide/Smoking/Psychosocial Hx Smoking Status: No Smoking History: Unknown if ever smoked Have you smoked in the past 12 months: No Number of Cigarettes Smoked Daily: 0 If you are a former smoker, when did you quit?: 35 years ago Cigars Per Day: 0 Information on smoking cessation initiated: No Hx Alcohol Use: No Drug/Substance Use Hx: No Substance Use Type: None Hx Substance Use Treatment: No Review of Systems - Review of Systems Able to Perform ROS?: Yes Comments:: 11/07/17 14:08 GENERAL/CONSTITUTIONAL: No fever or chills. Positive for generalized weakness. HEAD, EYES, EARS, NOSE AND THROAT: No change in vision. No ear pain or discharge. No sore throat. CARDIOVASCULAR: No chest pain, palpitations, or lightheadedness. RESPIRATORY: No cough, wheezing, shortness of breath, or hemoptysis. GASTROINTESTINAL: No nausea, vomiting, diarrhea, constipation, or abdominal pain. GENITOURINARY: No dysuria, frequency, hematuria, or change in urination. MUSCULOSKELETAL: No joint or muscle swelling or pain. No neck or back pain. SKIN: No rash or lesions. NEUROLOGIC: No headache, numbness, tingling, weakness, loss of consciousness, or change in strength/sensation. ENDOCRINE: No increased thirst. No abnormal weight change. HEMATOLOGIC/LYMPHATIC: No anemia, easy bleeding, or history of blood clots. ALLERGIC/IMMUNOLOGIC: No hives or skin allergy. Is the patient limited Japanese proficient: No *Physical Exam - Vital Signs Last Vital Signs Temp Pulse Resp BP Pulse Ox 97.3 F L 86 16 128/79 95 11/07/17 12:43 11/07/17 12:43 11/07/17 12:43 11/07/17 12:43 11/07/17 12:43 - Physical Exam Comments: 11/07/17 14:10 GENERAL: Well developed, well nourished. Awake and alert. No acute distress. HEENT: Normocephalic, atraumatic. Hearing grossly normal. Moist mucous membranes. PERRLA, EOMI. No conjunctival pallor. Sclera are non-icteric. NECK: Supple. Full ROM. No JVD. CARDIOVASCULAR: Regular rate and rhythm. No murmurs, rubs, or gallops. PULMONARY: No evidence of respiratory distress. Bibasilar rhonchi. ABDOMINAL: Soft. Non-tender. Non-distended. No rebound or guarding. No organomegaly. Normoactive bowel sounds. GENITOURINARY: No CVA tenderness bilaterally. MUSCULOSKELETAL: Normal range of motion at all joints. No bony deformities or tenderness. EXTREMITIES: No cyanosis. No clubbing. No edema. No calf tenderness. SKIN: Warm and dry. Normal capillary refill. No rashes. No jaundice. NEUROLOGICAL: Alert, awake, appropriate. Cranial nerves 2-12 intact. Normal speech. PSYCHIATRIC: Cooperative. Good eye contact. Appropriate mood and affect. Heart Score/ECG Review #1 ECG reviewed & interpreted by me at: 14:11 General ECG Interpretation: Sinus Rhythm, Normal Rate, Normal Intervals, No acute ischemic changes Compared to previous ECG there are: No significant change 11/07/17 14:11 Sinus rhythm with PAC Rate 81 LAFB noted QRS 130 QTc 504 ED Treatment Course - LABORATORY CBC & Chemistry Diagram: 11/07/17 13:40 11/07/17 13:40 Medical Decision Making - Medical Decision Making 11/07/17 14:12 The patient is an 87M with an extensive PMH who presents with generalized weakness for a direct admission from Dr. Castillo. Pending labs. 11/07/17 15:52 Labs WNL. Will repeat CMP as it is slightly hemolyzed. manager investigations set him up at [facility]. 11/07/17 16:49 Pt does not want to be admitted to [facility]. Dr. Casey has accepted admission for the patient. Attending placed orders. *DC/Admit/Observation/Transfer Diagnosis at time of Disposition: Abnormal LFTs, Chronic kidney disease (CKD) stage G3a/A2, moderately decreased glomerular filtration rate (GFR) between 45-59 mL/min/1.73 square meter and albuminuria creatinine ratio between 30-299 mg/g, FTT (failure to thrive) in adult, Hyperkalemia - Discharge Dispostion Condition at time of disposition: Fair - Referrals Referrals: Anmol Casey MD [Primary Care Provider] - - Patient Instructions - Post Discharge Activity
[2017-11-07 14:20] LABS: ALK PHOS 159 U/L (45-117); N-TERMINAL BNP 43784.31 pg/ml (5-450)
--- NOTE | 2017-11-07 14:21 | PDOC ---
Attending Attestation - Resident Resident Name: [email or web address] - ED Attending Attestation I have performed the following: I have examined & evaluated the patient, The case was reviewed & discussed with the resident, I agree w/resident's findings & plan, Exceptions are as noted - HPI HPI: 11/07/17 14:18 87-year-old male with multiple medical problems with several ED visits/ hospitalizations over the last month now sent by PMD for admission given failure to thrive at home and progressive shortness of breath. - Physicial Exam PE: 11/07/17 14:18 Vitals as noted, afebrile. Agree with exam - Medical Decision Making 11/07/17 14:18 Patient seen and evaluated with the resident. I agree with the overall evaluation, assessment, and management with the following summary of visit: 87-year-old male presents to ED again with progressive functional decline, dyspnea, weakness. admission per Dr. Knowles labs, cxr 11/07/17 15:45 Labs all at baseline with mild anemia, creatinine 2, baseline BNP. Case discussed with hospitalist team, who knows the patient well. Given no acute medical abnormalities, case management was involved to determine placement needs. Plan is to recheck chemistry given mild hemolysis, follow-up with case management regarding disposition, and proceed according to their guidelines. Heart Score/ECG Review #1 ECG reviewed & interpreted by me at: 13:43 General ECG Interpretation: Sinus Rhythm, Normal Rate (81), Normal Intervals ( qrs 130, qtc 504), No acute ischemic changes (LAFB, LBBB) Compared to previous ECG there are: No significant change (10/26/17)
[2017-11-07 14:23] LABS: MAGNESIUM 2.6 mg/dL (1.8-2.4); POTASSIUM 5.3 mmol/L (3.5-5.1); SGOT/AST 46 U/L (15-37)
[2017-11-07 14:28] LABS: INR 1.39 (0.82-1.09); PROTHROMBIN TIME (PATIENT) 15.7 SEC (9.98-11.88)
[2017-11-07 14:39] LABS: ADD RBC MORPHOLOGY YES
--- NOTE | 2017-11-07 16:26 | PDOC ---
*Physical Exam - Vital Signs Last Vital Signs Temp Pulse Resp BP Pulse Ox 97.3 F L 86 16 128/79 95 11/07/17 12:43 11/07/17 12:43 11/07/17 12:43 11/07/17 12:43 11/07/17 12:43 - Physical Exam Comments: 11/07/17 16:31 Gen: awake, sitting up, nad heart: +s1s2 reg Lungs: diminished bs b/l bases abd: soft, nt/nd +bs Ext: 1+edema to LE ED Treatment Course - LABORATORY CBC & Chemistry Diagram: 11/07/17 13:40 11/07/17 13:40 - ADDITIONAL ORDERS Additional order review: Laboratory Results 11/07/17 11/07/17 13:40 13:40 PT with INR 15.70 H INR 1.39 H Sodium 134 L Potassium 5.3 H D Chloride 96 L Carbon Dioxide 27 Anion Gap 11 BUN 58 H D Creatinine 2.0 H D Creat Clearance w eGFR 31.76 Random Glucose 95 D Calcium 9.1 Magnesium 2.6 H Total Bilirubin 1.2 H AST 46 H D ALT 24 D Alkaline Phosphatase 159 H D Creatine Kinase 84 Troponin I 0.02 D B-Natriuretic Peptide 56392.31 H Total Protein 7.8 Albumin 3.6 11/07/17 13:40 RBC 3.82 L MCV 83.5 MCHC 32.4 RDW 25.3 H MPV 10.1 Neutrophils % 65.3 Lymphocytes % 15.4 Monocytes % 12.2 H Eosinophils % 4.8 H Basophils % 2.3 H Medical Decision Making - Medical Decision Making 11/07/17 16:31 a/p: pt signed out pending dispo -discussed with Dr. Casey who requests the patient be placed on his service and then he will send the paitent to a facility after correcting his electrolytes -discussed plan with the patient discsused need for a urine sample will order a cardiac diet *DC/Admit/Observation/Transfer Diagnosis at time of Disposition: Abnormal LFTs, Chronic kidney disease (CKD) stage G3a/A2, moderately decreased glomerular filtration rate (GFR) between 45-59 mL/min/1.73 square meter and albuminuria creatinine ratio between 30-299 mg/g, FTT (failure to thrive) in adult, Hyperkalemia - Discharge Dispostion Condition at time of disposition: Fair Admit: Yes - Referrals Referrals: Anmol Casey MD [Primary Care Provider] - - Patient Instructions - Post Discharge Activity
--- NOTE | 2017-11-07 16:31 | HP ---
Admitting History and Physical - Primary Care Physician PCP: Anmol Brink - Admission Chief Complaint: weakness/frequent falls/presyncopal History of Present Illness: The patient is an 87 M with a PMH of CAD, NH, CABG, stents, CHF, AICD, hypertension, hyperlipidemia, chronic kidney disease, vertigo, ambulates w/ walker, who presents to my office with profound weakness, anorexia, h/o multiple falls while at home, dizzyand lives alone. The patient was recently discharged from our facility for weakness and says that he has not felt better. He states he hasn't slept in three days due to orthopnea and feeling presyncopal. 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 No: Alzheimer's, CVA Cardiovascular: Yes: CAD, CHF, HTN, Hyperlipdemia, Other (severe LV systolic dysfunction) Pulmonary: Yes: COPD, Sleep Apnea. No: O2 Dependent, Pneumonia, Previously Intubated Gastrointestinal: No: Cancer, GI Bleed Hepatobiliary: No: Cirrhosis Renal/: Yes: Renal Inusuff Heme/Onc: Yes: Anemia. No: Cancer Infectious Disease: No: AIDS Psych: Yes: Anxiety, Depression Musculoskeletal: Yes: Osteoarthritis Rheumatology: Yes: Fibromyalgia ENT: Yes: Other (hearing loss (hearing aids) ) - Past Surgical History Past Surgical History: Yes: CABG, Permanent Pacemaker, Stent - Smoking History Smoking history: Never smoked Have you smoked in the past 12 months: No Aproximately how many cigarettes per day: 0 If you are a former smoker, when did you quit?: 35 years ago - Alcohol/Substance Use Hx Alcohol Use: No History of Substance Use: reports: None - Social History Usual Living Arrangement: Yes: Alone ADL: Support Services History of Recent Travel: No Home Medications - Allergies Allergies/Adverse Reactions: Allergies Allergy/AdvReac Type Severity Reaction Status Date / Time amoxicillin trihydrate AdvReac Mild gi upset Verified 11/07/17 12:43 [From Augmentin] atorvastatin calcium AdvReac Mild gi upset Verified 11/07/17 12:43 [From Lipitor] potassium clavulanate AdvReac Mild gi upset Verified 11/07/17 12:43 [From Augmentin] - Home Medications Home Medications: Ambulatory Orders Simvastatin 20 mg PO HS 06/10/17 Clopidogrel Bisulfate [Plavix -] 75 mg PO AM #30 tab 06/21/17 Potassium Chloride 20 meq PO DAILY 06/27/17 Aspirin [Ecotrin] 81 mg PO DAILY #30 tablet. 06/30/17 Furosemide [Lasix -] 60 mg PO BID #60 tablet 07/21/17 Ofloxacin Otic [Floxin Otic -] 5 drop AD BID #1 bottle 07/21/17 Carvedilol 6.25 mg PO HS 08/01/17 Acetaminophen [Tylenol .Regular Strength -] 650 mg PO Q6H PRN #0 tablet Albuterol 0.083% Nebulizer Lena [Ventolin 0.083% Nebulizer Soln -] 1 amp NEB TIDR PRN #0 amp 08/09/17 Alprazolam [Xanax] 0.5 mg PO HS PRN #30 tablet MDD 1 08/09/17 Carvedilol [Coreg -] 3.125 mg PO DAILY@0700 #30 tablet 08/09/17 Meclizine HCl [Antivert -] 25 mg PO BID tablet 08/09/17 Polyethylene Glycol 3350 [Miralax 119 gm Btl -] 17 gm PO DAILY bottle 08/09/17 Spironolactone [Aldactone -] 25 mg PO DAILY tablet 08/09/17 Melatonin 3 mg PO DAILY 09/23/17 Acetaminophen [Tylenol] 650 mg PO Q6H #30 tablet 10/26/17 Family Disease History - Family Disease History Family History: Unremarkable Review of Systems - Review of Systems Constitutional: reports: Lethargy, Loss of Appetite, Unintentional Wgt. Loss, Weakness. denies: Diaphoresis, Fever Eyes: reports: Blurred Vision HENT: reports: Ringing in Ears. denies: Ear Discharge Neck: reports: Stiffness. denies: Decreased ROM Cardiovascular: reports: Edema, Palpitations, Shortness of Breath. denies: Chest Pain Respiratory: reports: Cough, Exercise Intolerance, Orthopnea, SOB on Exertion. denies: Hemoptysis Gastrointestinal: denies: Abdominal Pain Genitourinary: denies: Burning Breasts: reports: No Symptoms Reported Musculoskeletal: reports: Back Pain Integumentary: reports: No Symptoms Neurological: reports: Dizziness, Pre-Existing Deficit, Unsteady Gait, Weakness. denies: Seizure Endocrine: reports: Increased Thirst, Unexplained Weight Loss Hematology/Lymphatic: reports: No Symptoms Psychiatric: reports: Altered Sleep Pattern, Anxiety, Depression Physical Examination Vital Signs: Vital Signs Temperature 97.3 F L 11/07/17 12:43 Pulse Rate 86 11/07/17 12:43 Respiratory Rate 16 11/07/17 12:43 Blood Pressure 128/79 11/07/17 12:43 O2 Sat by Pulse Oximetry (%) 95 11/07/17 12:43 Constitutional: Yes: Anxious, Mild Distress, Poor Hygeine Eyes: Yes: EOM Intact HENT: Yes: Normocephalic Neck: Yes: Trachea Midline Cardiovascular: Yes: Regular Rate and Rhythm, S1, S2 Respiratory: Yes: Diminished Gastrointestinal: Yes: Soft Musculoskeletal: Yes: Back Pain Edema: LLE: 1+, RLE: 1+ Integumentary: Yes: WNL Wound/Incision: No: Clean/Dry, Well Approximated, Sutures Intact, [place] Intact , Steri Strips, Open to air, Dressing Dry and Intact, Dressing Removed, [place] Removed, Sutures Removed, Draining, Reddened, Bleeding, Excoriated, Unapproximated, Other Neurological: Yes: Lethargy, Pre-Existing Deficit, Unsteady Gait, Weakness Labs: CBC, BMP 11/07/17 13:40 11/07/17 13:40 rest reviewed Imaging - Results Chest X-ray: Report Reviewed, Image Reviewed EKG: Pending Problem List - Problems (1) Pre-syncope Code(s): R55 - SYNCOPE AND COLLAPSE (2) Acute exacerbation of CHF (congestive heart failure) Code(s): I50.9 - HEART FAILURE, UNSPECIFIED (3) Anxiety Code(s): F41.9 - ANXIETY DISORDER, UNSPECIFIED (4) COPD (chronic obstructive pulmonary disease) Code(s): J44.9 - CHRONIC OBSTRUCTIVE PULMONARY DISEASE, UNSPECIFIED (5) Chronic mastoiditis, bilateral Code(s): H70.13 - CHRONIC MASTOIDITIS, BILATERAL (6) Compliance poor Code(s): Z91.19 - PATIENT'S NONCOMPLIANCE W OTH MEDICAL TREATMENT AND REGIMEN (7) Dizziness Code(s): R42 - DIZZINESS AND GIDDINESS (8) Arteriosclerotic heart disease (ASHD) Code(s): I25.10 - ATHSCL HEART DISEASE OF [place] CORONARY ARTERY W/O ANG PCTRS Assessment/Plan 87 white male with multiple co-morbid conditions as listed who presents with frequent falls/anorexia/and multiple presyncopal episodes while at home. Will admit to my service and begin IV hydration, check urine culture. will ask cardio/neuro to eval. Will ultimately need residential SNF placement once clinically stable. Venkata BRINK MD
[2017-11-07] MEDS ORDERED: DEXTROSE 5%-0.45% SALINE 1,000 ML IV SCH (17:00)
[2017-11-07] MEDS ORDERED: ATORVASTATIN CA 10 MG TABLET (FP) PO ONE (17:30)
[2017-11-07] MEDS ORDERED: FUROSEMIDE 40 MG TABLET (FP) PO ONE (17:30)
[2017-11-07] MEDS ORDERED: CLOPIDOGREL BISULFATE 75 MG TABLET (FP) PO ONE (17:30)
[2017-11-07 18:10] LABS: ALBUMIN 3.7 g/dl (3.4-5.0); ANION GAP 11 (8-16); BILIRUBIN,TOTAL 1.2 mg/dL (0.2-1.0); BLOOD UREA NITROGEN 59 mg/dL (7-18); CALCIUM 8.6 mg/dL (8.5-10.1); CHLORIDE 98 mmol/L (98-107); CO2 27 mmol/L (21-32); CREATININE 1.8 mg/dL (0.7-1.3); GLUCOSE,RANDOM 101 mg/dL (74-106); POTASSIUM 4.3 mmol/L (3.5-5.1); SGOT/AST 25 U/L (15-37); SODIUM 136 mmol/L (136-145); TOT PROT 7.6 g/dl (6.4-8.2)
[2017-11-07 18:16] LABS: ALK PHOS 158 U/L (45-117); SGPT/ALT 21 U/L (12-78)
[2017-11-07] MEDS ORDERED: CLOPIDOGREL BISULFATE 75 MG TABLET (FP) ONE (18:17)
[2017-11-07] MEDS ORDERED: FUROSEMIDE 40 MG TABLET (FP) ONE (18:17)
[2017-11-07 19:16] LABS: ANISOCYTOSIS 1+
[2017-11-07] MEDS ORDERED: ALPRAZolam 0.25 MG TABLET ONE (22:42)
[2017-11-07] MEDS: CARVEDILOL 3.125 MG TABLET (FP) PO SCH (22:47)
[2017-11-07] MEDS: ALPRAZolam 0.25 MG TABLET PO SCH (22:47)
[2017-11-07] MEDS: MELATONIN 5 MG TABLETS PO SCH (22:47)
--- NOTE | 2017-11-08 09:48 | EKG ---
Test Reason : Blood Pressure : / mmHG Vent. Rate : 081 BPM Atrial Rate : 081 BPM P-R Int : 172 ms QRS Dur : 130 ms QT Int : 434 ms P-R-T Axes : 035 -53 142 degrees QTc Int : 504 ms SINUS RHYTHM WITH OCCASIONAL PREMATURE VENTRICULAR COMPLEXES POSSIBLE LEFT ATRIAL ENLARGEMENT LEFT AXIS DEVIATION LEFT BUNDLE BRANCH BLOCK ABNORMAL ECG WHEN COMPARED WITH ECG OF 26-OCT-2017 16:51, PREMATURE VENTRICULAR COMPLEXES ARE NOW PRESENT Confirmed by MALINDA OWENS MD ([id number]) on 11/08/2017 9:47:49 AM Referred By: Confirmed By:MALINDA OWENS MD
[2017-11-08] MEDS ORDERED: SPIRONOLACTONE 25 MG TABLET (FP) PO SCH (10:00)
[2017-11-08] MEDS: ASPIRIN COATED 81 MG TABLET.EC PO SCH (11:10)
[2017-11-08] MEDS: CARVEDILOL 3.125 MG TABLET (FP) PO SCH ×2 (11:10→21:56)
--- NOTE | 2017-11-08 17:34 | PN ---
Progress Note (short form) - Note Progress Note: PULMONARY/MEDICAL ATTENDING VSS/AFEBRILE REMAINS IN ER WAITING FOR A BED ANICTERIC DIMINISHED AT BASES S1S2 BS+ 2+ EDEMA LABS/MEDS/NOTES/IMAGES/REVIEWED CHF/LVD/CABG/AICD/PCI STENTS/CRI/HTN/HPL PRESYNCOPAL/MULTIPLE FALLS GENTLE HYDRATION/CONTINUE HOME CARDIAC MEDS/O2 SUPPLEMENTATION CONSULT RENAL/CARDIO/NEURO R [place] Problem List - Problems (1) Pre-syncope Code(s): R55 - SYNCOPE AND COLLAPSE (2) Acute exacerbation of CHF (congestive heart failure) Code(s): I50.9 - HEART FAILURE, UNSPECIFIED (3) Anxiety Code(s): F41.9 - ANXIETY DISORDER, UNSPECIFIED (4) COPD (chronic obstructive pulmonary disease) Code(s): J44.9 - CHRONIC OBSTRUCTIVE PULMONARY DISEASE, UNSPECIFIED (5) Chronic mastoiditis, bilateral Code(s): H70.13 - CHRONIC MASTOIDITIS, BILATERAL (6) Compliance poor Code(s): Z91.19 - PATIENT'S NONCOMPLIANCE W OTH MEDICAL TREATMENT AND REGIMEN (7) Dizziness Code(s): R42 - DIZZINESS AND GIDDINESS (8) Arteriosclerotic heart disease (ASHD) Code(s): I25.10 - ATHSCL HEART DISEASE OF [place] CORONARY ARTERY W/O ANG PCTRS
[2017-11-08] MEDS ORDERED: PT OWN MED DRAWER 7, Y5N ONE (21:14)
[2017-11-08 21:18] VITALS: BMI 27.3
[2017-11-08] MEDS: ALPRAZolam 0.25 MG TABLET PO SCH (21:56)
[2017-11-08] MEDS: MELATONIN 5 MG TABLETS PO SCH (22:31)
[2017-11-08 23:13] LABS: URINE APPEARANCE CLEAR; URINE BILIRUBIN NEGATIVE (NEGATIVE); URINE BLOOD NEGATIVE (NEGATIVE); URINE COLOR YELLOW; URINE GLUCOSE (UA) NEGATIVE (NEGATIVE); URINE KETONE NEGATIVE (NEGATIVE); URINE LEUK ESTERASE NEGATIVE (NEGATIVE); URINE NITRITE NEGATIVE (NEGATIVE); URINE UROBILINOGEN NEGATIVE mg/dL (0.2-1.0)
[2017-11-08 23:24] LABS: URINE PROTEIN 1+ (NEGATIVE)
[2017-11-08 23:31] LABS: GRANULAR CASTS 7 /lpf; URINE HYALINE CAST 12 /lpf; URINE MUCUS RARE
[2017-11-09] MEDS: ASPIRIN COATED 81 MG TABLET.EC PO SCH (10:58)
[2017-11-09] MEDS: CARVEDILOL 3.125 MG TABLET (FP) PO SCH ×2 (10:59→22:13)
--- NOTE | 2017-11-09 11:41 | PN ---
Progress Note (short form) - Note Progress Note: PULMONARY/MEDICAL ATTENDING VSS/AFEBRILE SUBJECTIVE IMPROVEMENT ANICTERIC DIMINISHED AT BASES S1S2 BS+ 2+ EDEMA LABS/MEDS/NOTES/IMAGES/REVIEWED CHF/LVD/CABG/AICD/PCI STENTS/CRI/HTN/HPL PRESYNCOPAL/MULTIPLE FALLS GENTLE HYDRATION/CONTINUE HOME CARDIAC MEDS/O2 SUPPLEMENTATION CONSULT RENAL/CARDIO/NEURO Venkata BRINK MD Problem List - Problems (1) Pre-syncope Code(s): R55 - SYNCOPE AND COLLAPSE (2) Acute exacerbation of CHF (congestive heart failure) Code(s): I50.9 - HEART FAILURE, UNSPECIFIED (3) Anxiety Code(s): F41.9 - ANXIETY DISORDER, UNSPECIFIED (4) COPD (chronic obstructive pulmonary disease) Code(s): J44.9 - CHRONIC OBSTRUCTIVE PULMONARY DISEASE, UNSPECIFIED (5) Chronic mastoiditis, bilateral Code(s): H70.13 - CHRONIC MASTOIDITIS, BILATERAL (6) Compliance poor Code(s): Z91.19 - PATIENT'S NONCOMPLIANCE W OTH MEDICAL TREATMENT AND REGIMEN (7) Dizziness Code(s): R42 - DIZZINESS AND GIDDINESS (8) Arteriosclerotic heart disease (ASHD) Code(s): I25.10 - ATHSCL HEART DISEASE OF [place] CORONARY ARTERY W/O ANG PCTRS
--- NOTE | 2017-11-09 12:32 | CON.NEP ---
Consult Consult Specialty:: nephrology Reason for Consultation:: ckd - History of Present Illness Chief Complaint: weakness History of Present Illness: The patient is an 87 M with a PMH of CAD, DC, CABG, stents, CHF, AICD, hypertension, hyperlipidemia, chronic kidney disease, vertigo, ambulates w/ walker, who presents via Dr. Castillo for a direct admission for failure to thrive. The patient was recently discharged from our facility for weakness and says that he has not felt better. He denies any CP, SOB, fever, chills, nausea, vomiting but says he feels dry and weak. Says he has been getting fluids and his legs are swollen now. His appetite is starting to improve. Could not taste food but is better now. 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 No: Alzheimer's, CVA Cardio/Vascular: Yes: CAD, CHF, HTN, Hyperlipdemia, Other (severe LV systolic dysfunction) Pulmonary: Yes: COPD, Sleep Apnea. No: O2 Dependent, Pneumonia, Previously Intubated Gastrointestinal: No: Cancer, GI Bleed Hepatobiliary: No: Cirrhosis Renal/: Yes: Renal Inusuff Infectious Disease: No: AIDS Psych: Yes: Anxiety, Depression Musculoskeletal: Yes: Osteoarthritis Rheumatology: Yes: Fibromyalgia ENT: Yes: Other (hearing loss (hearing aids) ) - Past Surgical History Past Surgical History: Yes: CABG, Permanent Pacemaker, Stent - Alcohol/Substance Use Hx Alcohol Use: No History of Substance Use: reports: None - Smoking History Smoking history: Unknown if ever smoked Have you smoked in the past 12 months: No Aproximately how many cigarettes per day: 0 If you are a former smoker, when did you quit?: 35 years ago - Social History Usual Living Arrangement: Alone ADL: Support Services History of Recent Travel: No Home Medications - Allergies Allergies/Adverse Reactions: Allergies Allergy/AdvReac Type Severity Reaction Status Date / Time amoxicillin trihydrate AdvReac Mild gi upset Verified 11/07/17 12:43 [From Augmentin] atorvastatin calcium AdvReac Mild gi upset Verified 11/07/17 12:43 [From Lipitor] potassium clavulanate AdvReac Mild gi upset Verified 11/07/17 12:43 [From Augmentin] - Home Medications Home Medications: Ambulatory Orders Clopidogrel Bisulfate [Plavix -] 75 mg PO AM #30 tab 06/21/17 Potassium Chloride 20 meq PO DAILY 06/27/17 Aspirin [Ecotrin] 81 mg PO DAILY #30 tablet. 06/30/17 Acetaminophen [Tylenol .Regular Strength -] 650 mg PO Q6H PRN #0 tablet Albuterol 0.083% Nebulizer Lena [Ventolin 0.083% Nebulizer Soln -] 1 amp NEB TIDR PRN #0 amp 08/09/17 Alprazolam [Xanax] 0.5 mg PO HS PRN #30 tablet MDD 1 08/09/17 Carvedilol [Coreg -] 3.125 mg PO DAILY@0700 #30 tablet 08/09/17 Spironolactone [Aldactone -] 25 mg PO DAILY tablet 08/09/17 Furosemide [Lasix -] 0 mg PO BID 11/07/17 Meclizine HCl [Antivert -] 25 mg PO BID PRN 11/07/17 Review of Systems - Review of Systems Constitutional: reports: Loss of Appetite, Weakness Eyes: reports: No Symptoms HENT: reports: No Symptoms Neck: reports: No Symptoms Cardiovascular: reports: Edema Respiratory: reports: No Symptoms Gastrointestinal: reports: No Symptoms Genitourinary: reports: No Symptoms Breasts: reports: No Symptoms Reported Musculoskeletal: reports: No Symptoms Integumentary: reports: No Symptoms Neurological: reports: No Symptoms Endocrine: reports: No Symptoms Hematology/Lymphatic: reports: No Symptoms Psychiatric: reports: No Symptoms Nephrology Consult - Height Height: 5 ft 7 in - Weight Weight: 175 lb - BMI Body Mass Index (BMI): 27.3 - Lab Results CBC,BMP: CBC, BMP 11/07/17 13:40 11/07/17 16:45 Anion Gap: Anion Gap Anion Gap 11 (8-16) 11/07/17 16:45 - Imaging Chest X-ray: Report Reviewed (congestive changes) - Physical Examination Vital Signs: Vital Signs Temperature 97.2 F L 11/09/17 11:03 Pulse Rate 76 11/09/17 11:03 Respiratory Rate 17 11/09/17 11:03 Blood Pressure 113/64 11/09/17 11:03 O2 Sat by Pulse Oximetry (%) 98 11/09/17 03:30 Constitutional: Yes: Well Nourished, No Distress Eyes: Yes: Conjunctiva Clear HENT: Yes: Atraumatic, Normocephalic Neck: Yes: Supple, Trachea Midline Cardiovascular: Yes: Regular Rate and Rhythm. No: Rub Respiratory: Yes: Rales Gastrointestinal: Yes: Normal Bowel Sounds Renal/: Yes: WNL Musculoskeletal: Yes: WNL Extremities: Yes: WNL Edema: Yes Edema: LLE: 2+, RLE: 2+ Wound/Incision: Yes: Clean/Dry Neurological: Yes: Alert, Oriented Psychiatric: Yes: Alert, Oriented Assessment/Plan IMPRESSION ckd with creatinine at baseline (or close to it) diabetes by hgb a1c of 6.5 LV dysfunction s/p AICD fluid overload PLAN dc ivf cardiology evaluation repeat labs including tsh and BMP monitor BP urinalysis continue feeding MV
[2017-11-09] MEDS: SODIUM CHLORIDE 1,000 ML IV SCH (19:21)
[2017-11-09] MEDS ORDERED: PT OWN MED DRAWER 7, Y5N ONE (21:58)
[2017-11-09] MEDS: ALPRAZolam 0.25 MG TABLET PO SCH (22:12)
[2017-11-09] MEDS: MELATONIN 5 MG TABLETS PO SCH (22:13)
[2017-11-10 08:18] LABS: CHLORIDE 99 mmol/L (98-107); POTASSIUM 3.9 mmol/L (3.5-5.1); SODIUM 136 mmol/L (136-145)
--- NOTE | 2017-11-10 08:30 | CONS ---
DATE OF CONSULTATION: DATE OF DICTATION: 11/09/2017 CARDIOLOGY CONSULTATION CONSULTATION REQUESTED BY: Anmol Casey M.D. CHIEF COMPLAINT: 1. Weakness. 2. Loss of appetite. 3. History of falls. 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 The patient presented to Dr. Casey's office with weakness, lethargy, history of falls and apparently had a presyncopal episode. He was sent to the emergency room. He was found to be dehydrated and required IV fluids. There is no history of recent chest pain or discomfort, either at rest or with exertion. At present the patient denies having dyspnea, paroxysmal nocturnal dyspnea or orthopnea. There is no history of palpitations. 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 No history of recent cough or expectoration. PAST MEDICAL HISTORY: As mentioned in the history of present illness. SOCIAL HISTORY: He is retired. He used to be a heavy smoker. Denies use of alcohol. FAMILY HISTORY: Not available. ALLERGIES: 1. The patient is probably intolerant to AMOXICILLIN. 2. He complains of adverse effects related to LIPITOR and AUGMENTIN. MEDICATIONS: Medications prior to admission were: 1. Carvedilol 3.125 mg p.o. b.i.d. 2. Furosemide 60 mg p.o. b.i.d. 3. Potassium supplementation 20 mEq p.o. daily. 4. Simvastatin 20 mg p.o. daily at bedtime. 5. Clopidogrel 75 mg p.o. daily. 6. Aspirin 81 mg p.o. daily. 7. Potassium chloride 20 mEq p.o. daily. 8. Xanax 0.5 mg p.o. p.r.n. 9. Floxin Otic Solution 5 drops b.i.d. 10. Meclizine 25 mg p.o. b.i.d. 11. Spironolactone 25 mg p.o. daily. 12. Melatonin 3 mg p.o. daily. 13. MiraLAX 17 grams p.o. daily. 14. Tylenol 650 mg p.o. q.6 h. p.r.n. Current medications are: 1. Xanax 0.5 mg p.o. at bedtime. 2. Coreg 3.125 mg p.o. b.i.d. 3. Sodium chloride 125 mL/hour. 4. Aspirin 81 mg p.o. daily. 5. Melatonin 5 mg p.o. daily. REVIEW OF SYSTEMS: HEENT: No history of headaches, diplopia or blurred vision. No history of epistaxis or hoarseness. History of chronic tinnitus and deafness. The patient had bilateral mastoidectomies as a child. Cardiovascular: See history of present illness. Respiratory: See history of present illness. Gastrointestinal: History of decreased/poor appetite. No nausea, vomiting, melena or hematemesis. No history of abdominal pain or discomfort. History of intermittent constipation. Central Nervous System: No history of seizures or syncope. No history of focal weakness reported. Endocrine: History of elevated sugars. No history of polyuria or polydipsia. No history of intolerance to cold or warm weather. Musculoskeletal: Denies having arthralgias or myalgias. PHYSICAL EXAMINATION: General: An 87-year-old gentleman who is in no acute distress. He was coherent. There was no pallor, cyanosis, clubbing or jaundice. Vital Signs: Blood pressure 125/75 mmHg. Pulse 73 beats per minute and regular. Afebrile. Respirations 20 per minute. Weight 175 pounds. Neck: Supple. No jugular venous distention. Hepatojugular reflux was negative. Carotids were 1+ to 2+. No bruits were appreciated. No thyromegaly was palpable. Heart: PMI was in the 5th intercostal space. No heaves or thrills. S1 and S2 were normal. Ejection systolic murmur, grade 1/6 to 2/6, was heard at the 2nd right intercostal space. There was a decrescendo grade 1/6 to 2/6 No gallops were heard. Lungs: Fine crepitations at the right base. Abdomen: Soft, nontender. No hepatosplenomegaly or palpable masses were felt. Extremities: No calf tenderness. There was brawny pedal edema involving both lower extremities. LABORATORY DATA: Chemistry on November 07, 2017: Sodium 134, potassium 5.3, chloride 96, CO2 of 27, BUN 58, creatinine 2.0. Estimated GFR 31.76. Random glucose 95, calcium 9.5, magnesium 2.6, bilirubin 1.2 mg/dL. AST 46, ALT 24, alkaline phosphatase 156. CK 84. Troponin 0.02. BNP 43,784.31. RADIOLOGY: X-ray of the chest, impression: No acute pathology. No significant change since October 26, 2017. EKG is not available. IMPRESSION: 1. Clinical presentation is suggestive of dehydration. 2. Severe left ventricular systolic dysfunction. 3. Chronic congestive heart failure. 4. Coronary artery disease, status post coronary artery bypass grafting, status post recent [id number] myocardial infarction, status post percutaneous coronary intervention/stenting. 5. Hypertension, currently normotensive. 6. Chronic obstructive pulmonary disease. 7. Chronic kidney disease. 8. History of poor compliance. RECOMMENDATIONS: 1. Consider slowly reintroducing his cardiac medications. 2. Decrease the dose of furosemide initially to 40 mg p.o. daily and can be increased according to weight. 3. Resume spironolactone. 4. The patient is aware of his dietary restrictions. 5. ICD/pacemaker interrogation should be undertaken as soon as possible. 6. Check blood pressure supine and standing. Thank you for your referral. RADHA ASIF M.D. [id number]
[2017-11-10 08:31] LABS: ANION GAP 11 (8-16); BLOOD UREA NITROGEN 55 mg/dL (7-18); CALCIUM 8.7 mg/dL (8.5-10.1); CO2 26 mmol/L (21-32); CREATININE 1.7 mg/dL (0.7-1.3); GLUCOSE,RANDOM 86 mg/dL (74-106)
[2017-11-10] MEDS: ASPIRIN COATED 81 MG TABLET.EC PO SCH (10:00)
[2017-11-10] MEDS: CARVEDILOL 3.125 MG TABLET (FP) PO SCH ×2 (10:00→21:05)
--- NOTE | 2017-11-10 12:00 | PN ---
Progress Note (short form) - Note Progress Note: PULMONARY/MEDICAL ATTENDING VSS/AFEBRILE SUBJECTIVE IMPROVEMENT TSH ELEVATED ANICTERIC DIMINISHED AT BASES S1S2 BS+ 2+ EDEMA LABS/MEDS/NOTES/IMAGES/REVIEWED CHF/LVD/CABG/AICD/PCI STENTS/CRI/HTN/HPL PRESYNCOPAL/MULTIPLE FALLS RENAL/CARDIO EVAL APPRECIATED CONTINUE HOME CARDIAC MEDS/O2 SUPPLEMENTATION CONSULT ENDO/NEURO AWAITED THYROID US ORDERED FULL TFT 'S REQUESTED SYNTHROID 25 MCG GIULIA BRINK MD Problem List - Problems (1) Pre-syncope Code(s): R55 - SYNCOPE AND COLLAPSE (2) Acute exacerbation of CHF (congestive heart failure) Code(s): I50.9 - HEART FAILURE, UNSPECIFIED (3) Anxiety Code(s): F41.9 - ANXIETY DISORDER, UNSPECIFIED (4) COPD (chronic obstructive pulmonary disease) Code(s): J44.9 - CHRONIC OBSTRUCTIVE PULMONARY DISEASE, UNSPECIFIED (5) Chronic mastoiditis, bilateral Code(s): H70.13 - CHRONIC MASTOIDITIS, BILATERAL (6) Compliance poor Code(s): Z91.19 - PATIENT'S NONCOMPLIANCE W OTH MEDICAL TREATMENT AND REGIMEN (7) Dizziness Code(s): R42 - DIZZINESS AND GIDDINESS (8) Arteriosclerotic heart disease (ASHD) Code(s): I25.10 - ATHSCL HEART DISEASE OF [place] CORONARY ARTERY W/O ANG PCTRS
--- NOTE | 2017-11-10 12:33 | PN ---
Progress Note (short form) - Note Progress Note: RENAL Pt is awake and alert complains of a headache Last Vital Signs Temp Pulse Resp BP Pulse Ox 98.0 F 73 20 114/61 94 L 11/10/17 06:15 11/10/17 06:15 11/10/17 06:15 11/10/17 06:15 11/10/17 03:00 lungs basilar crackles cvs s1s2 rr abd soft ext bilat edema, slightly improved neuro a+ox3 CBC, BMP 11/07/17 13:40 11/10/17 06:00 Current Medications Generic Name Dose Route Start Last Admin Trade Name Freq PRN Reason Stop Dose Admin Alprazolam 0.5 mg 11/07/17 22:00 11/09/17 22:12 Xanax - PO 0.5 mg HS JEREMÍAS Administration Aspirin 81 mg 11/08/17 10:00 11/10/17 10:00 Ecotrin - PO 81 mg DAILY JEREMÍAS Administration Carvedilol 3.125 mg 11/07/17 22:00 11/10/17 10:00 Coreg - PO 3.125 mg BID JEREMÍAS Administration Levothyroxine Sodium 25 mcg 11/10/17 12:00 Synthroid - PO DAILY@0700 JEREMÍAS Melatonin 5 mg 11/07/17 22:00 11/09/17 22:13 Melatonin PO 5 mg HS JEREMÍAS Administration IMPRESSION ckd with creatinine at baseline (or close to it) diabetes by hgb a1c of 6.5 LV dysfunction s/p AICD fluid overload hypothyroidism PLAN start low dose lasix for now cardiology evaluation noted agree with starting synthroid monitor BP continue feeding tylenol for headache MV
[2017-11-10] MEDS ORDERED: ACETAMINOPHEN 500 MG TABLET (FP) PO PRN (12:38)
[2017-11-10] MEDS: LEVOTHYROXINE NA 25 MCG TABLET (FP) PO SCH (14:16)
[2017-11-10] MEDS: FUROSEMIDE 40 MG TABLET (FP) PO SCH (14:16)
[2017-11-10] MEDS ORDERED: PT OWN MED DRAWER 7, Y5N ONE (20:46)
[2017-11-10] MEDS: MELATONIN 5 MG TABLETS PO SCH (21:04)
[2017-11-10] MEDS: ALPRAZolam 0.25 MG TABLET PO SCH (21:05)
--- NOTE | 2017-11-10 21:45 | CONSULT ---
Consult Consult Specialty:: endocrine Referred by:: dr.Robert Ellre Reason for Consultation:: hypothyroid - History of Present Illness Chief Complaint: weak tired and cold History of Present Illness: 87 M with a PMH of CAD, [place], CABG, stents, CHF, AICD, hypertension, hyperlipidemia, chronic kidney disease, vertigo, ambulates w/ walker, presents with profound weakness, anorexia, h/o multiple falls while at home, dizzyand lives alone. 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 No: Alzheimer's, CVA Cardio/Vascular: Yes: CAD, CHF, HTN, Hyperlipdemia, Other (severe LV systolic dysfunction) Pulmonary: Yes: COPD, Sleep Apnea. No: O2 Dependent, Pneumonia, Previously Intubated Gastrointestinal: No: Cancer, GI Bleed Hepatobiliary: No: Cirrhosis Renal/: Yes: Renal Inusuff Infectious Disease: No: AIDS Psych: Yes: Anxiety, Depression Musculoskeletal: Yes: Osteoarthritis Rheumatology: Yes: Fibromyalgia ENT: Yes: Other (hearing loss (hearing aids) ) - Past Surgical History Past Surgical History: Yes: CABG, Permanent Pacemaker, Stent - Alcohol/Substance Use Hx Alcohol Use: No History of Substance Use: reports: None - Smoking History Smoking history: Unknown if ever smoked Have you smoked in the past 12 months: No Aproximately how many cigarettes per day: 0 If you are a former smoker, when did you quit?: 35 years ago - Social History Usual Living Arrangement: Alone ADL: Support Services History of Recent Travel: No Home Medications - Allergies Allergies/Adverse Reactions: Allergies Allergy/AdvReac Type Severity Reaction Status Date / Time amoxicillin trihydrate AdvReac Mild gi upset Verified 11/07/17 12:43 [From Augmentin] atorvastatin calcium AdvReac Mild gi upset Verified 11/07/17 12:43 [From Lipitor] potassium clavulanate AdvReac Mild gi upset Verified 11/07/17 12:43 [From Augmentin] - Home Medications Home Medications: Ambulatory Orders Clopidogrel Bisulfate [Plavix -] 75 mg PO AM #30 tab 06/21/17 Potassium Chloride 20 meq PO DAILY 06/27/17 Aspirin [Ecotrin] 81 mg PO DAILY #30 tablet. 06/30/17 Acetaminophen [Tylenol .Regular Strength -] 650 mg PO Q6H PRN #0 tablet Albuterol 0.083% Nebulizer Lena [Ventolin 0.083% Nebulizer Soln -] 1 amp NEB TIDR PRN #0 amp 08/09/17 Alprazolam [Xanax] 0.5 mg PO HS PRN #30 tablet MDD 1 08/09/17 Carvedilol [Coreg -] 3.125 mg PO DAILY@0700 #30 tablet 08/09/17 Spironolactone [Aldactone -] 25 mg PO DAILY tablet 08/09/17 Furosemide [Lasix -] 0 mg PO BID 11/07/17 Meclizine HCl [Antivert -] 25 mg PO BID PRN 11/07/17 Review of Systems - Review of Systems Constitutional: reports: Lethargy, Weakness Eyes: reports: No Symptoms HENT: reports: No Symptoms Neck: reports: No Symptoms Cardiovascular: reports: Shortness of Breath Respiratory: reports: Exercise Intolerance, SOB on Exertion Gastrointestinal: reports: Constipation Genitourinary: reports: No Symptoms Breasts: reports: No Symptoms Reported Musculoskeletal: reports: Muscle Cramps, Muscle Weakness Integumentary: reports: Pruritis Neurological: reports: Unsteady Gait, Weakness Endocrine: reports: No Symptoms Hematology/Lymphatic: reports: No Symptoms Physical Exam Vital Signs: Vital Signs Temperature 98.1 F 11/10/17 14:30 Pulse Rate 78 11/10/17 18:55 Respiratory Rate 20 11/10/17 18:55 Blood Pressure 123/74 11/10/17 18:55 O2 Sat by Pulse Oximetry (%) 97 11/10/17 11:00 Constitutional: Yes: Calm, Other Eyes: Yes: EOM Intact HENT: Yes: Normocephalic Neck: Yes: Thyromegaly Cardiovascular: Yes: Regular Rate and Rhythm Respiratory: Yes: CTA Bilaterally Gastrointestinal: Yes: Normal Bowel Sounds ...Rectal Exam: Yes: Deferred Renal/: Yes: WNL Breast(s): Yes: WNL Musculoskeletal: Yes: WNL Extremities: Yes: WNL Edema: No Peripheral Pulses WNL: Yes Integumentary: Yes: WNL Neurological: Yes: Alert, Oriented Labs: CBC, BMP 11/07/17 13:40 11/10/17 06:00 Problem List - Problems (1) Adult onset hypothyroidism Code(s): E03.8 - OTHER SPECIFIED HYPOTHYROIDISM (2) Chronic kidney disease (CKD) stage G3a/A2, moderately decreased glomerular filtration rate (GFR) between 45-59 mL/min/1.73 square meter and albuminuria creatinine ratio between 30-299 mg/g Code(s): N18.3 - CHRONIC KIDNEY DISEASE, STAGE 3 (MODERATE) (3) FTT (failure to thrive) in adult Code(s): R62.7 - ADULT FAILURE TO THRIVE (4) Hyperkalemia Code(s): E87.5 - HYPERKALEMIA Assessment/Plan Current Active Problems Abnormal LFTs (Acute) Arteriosclerotic heart disease (ASHD) (Acute) Chronic kidney disease (CKD) stage G3a/A2, moderately decreased glomerular filtration rate (GFR) between 45-59 mL/min/1.73 square meter and albuminuria creatinine ratio between 30-299 mg/g (Acute) FTT (failure to thrive) in adult (Acute) Hyperkalemia (Acute) Pre-syncope (Acute) hypothryoidism hashimotot clinically evident Laboratory Results - last 24 hr 11/10/17 06:00 Sodium 136 Potassium 3.9 Chloride 99 Carbon Dioxide 26 Anion Gap 11 BUN 55 H Creatinine 1.7 H Random Glucose 86 Calcium 8.7 TSH 15.60 H D plan: start slow synthroid 25mcg daily given minerva titrate to normalize free t4 repeat tsh in 3 weeks if still high tsh increase synthroid to 50mcg q am taken minerva
[2017-11-11] MEDS: LEVOTHYROXINE NA 25 MCG TABLET (FP) PO SCH (06:17)
[2017-11-11] MEDS: ASPIRIN COATED 81 MG TABLET.EC PO SCH (09:07)
[2017-11-11] MEDS: FUROSEMIDE 40 MG TABLET (FP) PO SCH (09:07)
[2017-11-11] MEDS: CARVEDILOL 3.125 MG TABLET (FP) PO SCH ×2 (09:07→21:51)
--- NOTE | 2017-11-11 09:51 | CONSULT ---
Consult - text type - Consultation Consultation Note: Neurology History of Present Illness The patient is an 87 M with a PMH of CAD, [place], CABG, stents, CHF, AICD, hypertension, hyperlipidemia, chronic kidney disease, vertigo, ambulates w/ walker, who presents via Dr. Castillo for a direct admission for failure to thrive. The patient was recently discharged from our facility for weakness and reportedly was not felling better. I was consulted for syncope and reviewed CT head from 10/15/17 and did not show acute changes. Patient admitted over weekend does report feeling better. Has been getting increased hydration and medical optimization. Dr. Hsu consulted, note reviewed Past History - Past Medical History Allergies/Adverse Reactions: Allergies Allergy/AdvReac Type Severity Reaction Status Date / Time amoxicillin trihydrate AdvReac Mild gi upset Verified 11/07/17 12:43 [From Augmentin] atorvastatin calcium AdvReac Mild gi upset Verified 11/07/17 12:43 [From Lipitor] potassium clavulanate AdvReac Mild gi upset Verified 11/07/17 12:43 [From Augmentin] Home Medications: Ambulatory Orders Simvastatin 20 mg PO HS 06/10/17 Clopidogrel Bisulfate [Plavix -] 75 mg PO AM #30 tab 06/21/17 Potassium Chloride 20 meq PO DAILY 06/27/17 Aspirin [Ecotrin] 81 mg PO DAILY #30 tablet. 06/30/17 Furosemide [Lasix -] 60 mg PO BID #60 tablet 07/21/17 Ofloxacin Otic [Floxin Otic -] 5 drop AD BID #1 bottle 07/21/17 Carvedilol 6.25 mg PO HS 08/01/17 Acetaminophen [Tylenol .Regular Strength -] 650 mg PO Q6H PRN #0 tablet Albuterol 0.083% Nebulizer Lena [Ventolin 0.083% Nebulizer Soln -] 1 amp NEB TIDR PRN #0 amp 08/09/17 Alprazolam [Xanax] 0.5 mg PO HS PRN #30 tablet MDD 1 08/09/17 Carvedilol [Coreg -] 3.125 mg PO DAILY@0700 #30 tablet 08/09/17 Meclizine HCl [Antivert -] 25 mg PO BID tablet 08/09/17 Polyethylene Glycol 3350 [Miralax 119 gm Btl -] 17 gm PO DAILY bottle 08/09/17 Spironolactone [Aldactone -] 25 mg PO DAILY tablet 08/09/17 Melatonin 3 mg PO DAILY 09/23/17 Acetaminophen [Tylenol] 650 mg PO Q6H #30 tablet 10/26/17 Anemia: No Asthma: No Cancer: No Cardiac Disorders: Yes (CABG (5 years ago), CAD, NH w/ stent) CVA: No COPD: No CHF: Yes Dementia: No Diabetes: No GI Disorders: No Disorders: No HTN: Yes Hypercholesterolemia: Yes Liver Disease: No Psychiatric Problems: Yes (anxiety, insomnia) Seizures: No Thyroid Disease: No - Surgical History Abdominal Surgery: No Appendectomy: No Cardiac Surgery: Yes (OPEN HEART SX, cardiac stent 05/30, AICD 05/30) Cholecystectomy: No Lung Surgery: No Neurologic Surgery: Yes Orthopedic Surgery: No - Immunization History Immunization Up to Date: Yes - Suicide/Smoking/Psychosocial Hx Smoking Status: No Smoking History: Unknown if ever smoked Have you smoked in the past 12 months: No Number of Cigarettes Smoked Daily: 0 If you are a former smoker, when did you quit?: 35 years ago Cigars Per Day: 0 Information on smoking cessation initiated: No Hx Alcohol Use: No Drug/Substance Use Hx: No Substance Use Type: None Hx Substance Use Treatment: No Review of Systems - Review of Systems Able to Perform ROS?: Yes Comments:: 11/07/17 14:08 GENERAL/CONSTITUTIONAL: No fever or chills. Positive for generalized weakness. HEAD, EYES, EARS, NOSE AND THROAT: No change in vision. No ear pain or discharge. No sore throat. CARDIOVASCULAR: No chest pain, palpitations, or lightheadedness. RESPIRATORY: No cough, wheezing, shortness of breath, or hemoptysis. GASTROINTESTINAL: No nausea, vomiting, diarrhea, constipation, or abdominal pain. GENITOURINARY: No dysuria, frequency, hematuria, or change in urination. MUSCULOSKELETAL: No joint or muscle swelling or pain. No neck or back pain. SKIN: No rash or lesions. NEUROLOGIC: No headache, numbness, tingling, weakness, loss of consciousness, or change in strength/sensation. ENDOCRINE: No increased thirst. No abnormal weight change. HEMATOLOGIC/LYMPHATIC: No anemia, easy bleeding, or history of blood clots. ALLERGIC/IMMUNOLOGIC: No hives or skin allergy. *Physical Exam Vital Signs Temperature 97.6 F 11/11/17 05:52 Pulse Rate 80 11/11/17 05:52 Respiratory Rate 20 11/11/17 05:52 Blood Pressure 107/66 11/11/17 05:52 O2 Sat by Pulse Oximetry (%) 98 11/11/17 03:00 GENERAL: Well developed, well nourished. Awake and alert. No acute distress. HEENT: Normocephalic, atraumatic. Hearing grossly normal. Moist mucous membranes. PERRLA, EOMI. No conjunctival pallor. Sclera are non-icteric. NECK: Supple. Full ROM. No JVD. CARDIOVASCULAR: Regular rate and rhythm. No murmurs, rubs, or gallops. PULMONARY: No evidence of respiratory distress. Bibasilar rhonchi. ABDOMINAL: Soft. Non-tender. Non-distended. No rebound or guarding. No organomegaly. Normoactive bowel sounds. GENITOURINARY: No CVA tenderness bilaterally. MUSCULOSKELETAL: Normal range of motion at all joints. No bony deformities or tenderness. EXTREMITIES: No cyanosis. No clubbing. No edema. No calf tenderness. SKIN: Warm and dry. Normal capillary refill. No rashes. No jaundice. NEUROLOGICAL: Alert, awake, appropriate. Cranial nerves 2-12 intact. Normal speech. PSYCHIATRIC: Cooperative. Good eye contact. Appropriate mood and affect. CBCD WBC 5.3 K/mm3 (4.0-10.0) 11/07/17 13:40 RBC 3.82 M/mm3 (4.00-5.60) L 11/07/17 13:40 Hgb 10.3 GM/dL (11.7-16.9) L 11/07/17 13:40 Hct 31.9 % (35.4-49) L 11/07/17 13:40 MCV 83.5 fl (80-96) 11/07/17 13:40 MCHC 32.4 g/dl (32.0-35.9) 11/07/17 13:40 RDW 25.3 % (11.9-15.9) H 11/07/17 13:40 Plt Count 136 K/MM3 (134-434) 11/07/17 13:40 MPV 10.1 fl (7.5-11.1) 11/07/17 13:40 CMP Sodium 136 mmol/L (136-145) 11/10/17 06:00 Potassium 3.9 mmol/L (3.5-5.1) 11/10/17 06:00 Chloride 99 mmol/L (98-107) 11/10/17 06:00 Carbon Dioxide 26 mmol/L (21-32) 11/10/17 06:00 Anion Gap 11 (8-16) 11/10/17 06:00 BUN 55 mg/dL (7-18) H 11/10/17 06:00 Creatinine 1.7 mg/dL (0.7-1.3) H 11/10/17 06:00 Creat Clearance w eGFR 35.87 (>60) 11/07/17 16:45 Calcium 8.7 mg/dL (8.5-10.1) 11/10/17 06:00 Total Bilirubin 1.2 mg/dL (0.2-1.0) H 11/07/17 16:45 AST 25 U/L (15-37) D 11/07/17 16:45 ALT 21 U/L (12-78) 11/07/17 16:45 Alkaline Phosphatase 158 U/L (45-117) H 11/07/17 16:45 Total Protein 7.6 g/dl (6.4-8.2) 11/07/17 16:45 Albumin 3.7 g/dl (3.4-5.0) 11/07/17 16:45 CT head reviewed Plan: 87 M with a PMH of CAD, [place], CABG, stents, CHF, AICD, hypertension, hyperlipidemia, chronic kidney disease, vertigo, ambulates w/ walker, who presents via Dr. Castillo for a direct admission for failure to thrive. The patient was recently discharged from our facility for weakness and reportedly was not felling better. I was consulted for syncope and reviewed CT head from 10/15/17 and did not show acute changes. Patient admitted over weekend does report feeling better. Has been getting increased hydration and medical optimization. Dr. Hsu consulted, note reviewed. -Continue hydration -Physical therapy for gait, consider rehab or outpatient physical therapy if patient amenable -Monitor BP, maintain < 140/90 -Continue anitplatelet medication, plavix -Continue statin for CVA prevention -Can take meclezine for vertigo as needed -Avoid sudden head movement -Monitor lytes -Fall precautions -DVT ppx
--- NOTE | 2017-11-11 10:33 | PN ---
Progress Note (short form) - Note Progress Note: 87 year old male, krown case of CAD,s/p CABG, s/p NSTEMI, s/p PCI/stentin, severs LV systolic dysfunction, COPD, ILD, DM, hypothyroidism, s/p AICD for primary prophylaxis. C/o fatique and tiredness, started on synthroid.No SOB reported, no chest pain or discomfort. On admission found to be dehydrated and received fluid replacement. There has been nearly 8 lb. weight gain. Active Medications Acetaminophen (Tylenol -) 500 mg PO Q4H PRN PRN Reason: HEADACHE Last Admin: 11/10/17 14:15 Dose: 500 mg Alprazolam (Xanax -) 0.5 mg PO HS [facility] Last Admin: 11/10/17 21:05 Dose: 0.5 mg Aspirin (Ecotrin -) 81 mg PO DAILY [facility] Last Admin: 11/11/17 09:07 Dose: 81 mg Carvedilol (Coreg -) 3.125 mg PO BID [facility] Last Admin: 11/11/17 09:07 Dose: 3.125 mg Furosemide (Lasix -) 40 mg PO DAILY [facility] Last Admin: 11/11/17 09:07 Dose: 40 mg Levothyroxine Sodium (Synthroid -) 25 mcg PO DAILY@0700 [facility] Last Admin: 11/11/17 06:17 Dose: 25 mcg Melatonin (Melatonin) 5 mg PO [facility] Last Admin: 11/10/17 21:04 Dose: 5 mg 87 year old male in no acute distress, no pallor, cyanosis, no clubbing or jaundice. Last Vital Signs Temp Pulse Resp BP Pulse Ox 97.6 F 80 20 107/66 98 11/11/17 05:52 11/11/17 05:52 11/11/17 05:52 11/11/17 05:52 11/11/17 03:00 Intake & Output 11/08/17 11/09/17 11/10/17 11/11/17 23:59 23:59 23:59 23:59 Intake Total 750 370 150 Balance 750 370 150 Weight 175 lb 175 lb 171 lb 4.8 oz 179 lb NECK: Supple slightly +ve HJR, Pulsatile neck veins. Carotids are palpable, no bruits heard. HEART: PMI im the 5th ICS, S1 & S2 are normal, DUARTE gradeII/ at the 2nd ICS,, gradeI/ systolic murmur LSB and apex. NOgallops heard LUNGS: Bilateral basilar crepitations. ABDOMEN: Soft, nontender, no organomegaly or palpb=able masses felt. EXTREMITIES: 3+ edema right lower extremity, 3+ edema left leg. No calf tenderness. CBC, BMP 11/07/17 13:40 11/10/17 06:00 IMPRESSION: 1. Weakness and lethargy, multifactoral. a). Secondary to CAD/ severe LV dysfunction. b). Hypothyroidism. 2. LV systolic dysfunction. 3. COPD/ILD. 4. CKD. 5. DM. 6. CHF. &.S/p AICD/CIGARETTE SELLER. RECOMMENDATIONS: 1. May need to increase the dose of diuretics in view of weight gain. 2. Consider restarting Aldactone under close observation of renal function. 3. Will need AICD interrogation on discharge (OP).
--- NOTE | 2017-11-11 11:16 | PN ---
Progress Note (short form) - Note Progress Note: Still with generalized malaise and fatigue. Denies SOB or CP . Some dry cough. No acute events overnight. No chemistry today. Noted weight gain, will need to trend. Intake & Output 11/08/17 11/09/17 11/10/17 11/11/17 23:59 23:59 23:59 23:59 Intake Total 750 370 150 Balance 750 370 150 Weight 175 lb 175 lb 171 lb 4.8 oz 179 lb Last Vital Signs Temp Pulse Resp BP Pulse Ox 97.6 F 80 20 107/66 98 11/11/17 05:52 11/11/17 05:52 11/11/17 05:52 11/11/17 05:52 11/11/17 03:00 Active Medications Acetaminophen (Tylenol -) 500 mg PO Q4H PRN PRN Reason: HEADACHE Last Admin: 11/10/17 14:15 Dose: 500 mg Alprazolam (Xanax -) 0.[address] [facility] Last Admin: 11/10/17 21:05 Dose: 0.5 mg Aspirin (Ecotrin -) 81 mg PO DAILY [facility] Last Admin: 11/11/17 09:07 Dose: 81 mg Carvedilol (Coreg -) 3.125 mg PO BID [facility] Last Admin: 11/11/17 09:07 Dose: 3.125 mg Furosemide (Lasix -) 40 mg PO DAILY [facility] Last Admin: 11/11/17 09:07 Dose: 40 mg Levothyroxine Sodium (Synthroid -) 25 mcg PO DAILY@0700 [facility] Last Admin: 11/11/17 06:17 Dose: 25 mcg Melatonin (Melatonin) [address] [facility] Last Admin: 11/10/17 21:04 Dose: 5 mg Constitutional: Yes: NAD Eyes: Yes: EOM Intact HENT: Yes: Normocephalic Neck: Yes: Thyromegaly Cardiovascular: Yes: Regular Rate and Rhythm Respiratory: Yes: few rhonchi Gastrointestinal: Yes: Normal Bowel Sounds ...Rectal Exam: Yes: Deferred Renal/: Yes: WNL Breast(s): Yes: WNL Musculoskeletal: Yes: WNL Extremities: Yes: WNL Edema: No Peripheral Pulses WNL: Yes Integumentary: Yes: WNL Neurological: Yes: Alert, Oriented Labs: Problem List - Problems (1) Pre-syncope Code(s): R55 - SYNCOPE AND COLLAPSE (2) Acute exacerbation of CHF (congestive heart failure) Code(s): I50.9 - HEART FAILURE, UNSPECIFIED (3) Anxiety Code(s): F41.9 - ANXIETY DISORDER, UNSPECIFIED (4) COPD (chronic obstructive pulmonary disease) Code(s): J44.9 - CHRONIC OBSTRUCTIVE PULMONARY DISEASE, UNSPECIFIED (5) Chronic mastoiditis, bilateral Code(s): H70.13 - CHRONIC MASTOIDITIS, BILATERAL (6) Compliance poor Code(s): Z91.19 - PATIENT'S NONCOMPLIANCE W OTH MEDICAL TREATMENT AND REGIMEN (7) Dizziness Code(s): R42 - DIZZINESS AND GIDDINESS (8) Arteriosclerotic heart disease (ASHD) Code(s): I25.10 - ATHSCL HEART DISEASE OF [place] CORONARY ARTERY W/O ANG PCTRS HF/LVD/CABG/AICD/PCI STENTS/CRI/HTN/HPL PRESYNCOPAL/MULTIPLE FALLS RENAL/CARDIO EVAL APPRECIATED CONTINUE HOME CARDIAC MEDS/O2 SUPPLEMENTATION CONTINUE TO TREND WEIGHT S WILL CHECK CMP IN AM AND FURTHER DECIDE ON INCREASING DIURESIS SYNTHROID 25 MCG PO TOLERATED FALL PRECAUTIONS DR NEWBY
--- NOTE | 2017-11-11 15:05 | PN ---
Progress Note, Physician History of Present Illness: Pt seen and examined at bedside. He is awake and alert. He is out of bed and ambulating. He denies shortness of breath. - Current Medication List Current Medications: Active Medications Acetaminophen (Tylenol -) 500 mg PO Q4H PRN PRN Reason: HEADACHE Last Admin: 11/10/17 14:15 Dose: 500 mg Alprazolam (Xanax -) 0.5 mg PO [facility] Last Admin: 11/10/17 21:05 Dose: 0.5 mg Aspirin (Ecotrin -) 81 mg PO DAILY [facility] Last Admin: 11/11/17 09:07 Dose: 81 mg Carvedilol (Coreg -) 3.125 mg PO BID [facility] Last Admin: 11/11/17 09:07 Dose: 3.125 mg Furosemide (Lasix -) 40 mg PO DAILY [facility] Last Admin: 11/11/17 09:07 Dose: 40 mg Levothyroxine Sodium (Synthroid -) 25 mcg PO DAILY@0700 [facility] Last Admin: 11/11/17 06:17 Dose: 25 mcg Melatonin (Melatonin) 5 mg PO [facility] Last Admin: 11/10/17 21:04 Dose: 5 mg - Objective Vital Signs: Vital Signs Temperature 98.0 F 11/11/17 10:00 Pulse Rate 77 11/11/17 10:00 Respiratory Rate 18 11/11/17 10:00 Blood Pressure 127/53 11/11/17 10:00 O2 Sat by Pulse Oximetry (%) 98 11/11/17 03:00 Constitutional: Yes: Calm Eyes: Yes: Conjunctiva Clear HENT: Yes: Atraumatic Neck: Yes: Supple Cardiovascular: Yes: S1, S2 Gastrointestinal: Yes: Normal Bowel Sounds, Soft Genitourinary: Yes: WNL Musculoskeletal: Yes: WNL Edema: Yes Edema: LLE: 1+, RLE: 1+ Neurological: Yes: Oriented Psychiatric: Yes: Oriented Labs: CBC, BMP 11/07/17 13:40 11/10/17 06:00 INR, PTT INR 1.39 (0.82-1.09) H 11/07/17 13:40 Problem List - Problems (1) Chronic kidney disease (CKD) stage G3a/A2, moderately decreased glomerular filtration rate (GFR) between 45-59 mL/min/1.73 square meter and albuminuria creatinine ratio between 30-299 mg/g Code(s): N18.3 - CHRONIC KIDNEY DISEASE, STAGE 3 (MODERATE) (2) Hyperkalemia Code(s): E87.5 - HYPERKALEMIA (3) Acute exacerbation of CHF (congestive heart failure) Code(s): I50.9 - HEART FAILURE, UNSPECIFIED (4) COPD (chronic obstructive pulmonary disease) Code(s): J44.9 - CHRONIC OBSTRUCTIVE PULMONARY DISEASE, UNSPECIFIED Assessment/Plan Current Medications Generic Name Dose Route Start Last Admin Trade Name Freq PRN Reason Stop Dose Admin Acetaminophen 500 mg 11/10/17 12:38 11/10/17 14:15 Tylenol - PO 500 mg Q4H PRN Administration HEADACHE Alprazolam 0.5 mg 11/07/17 22:00 11/10/17 21:05 Xanax - PO 0.5 mg HS JEREMÍAS Administration Aspirin 81 mg 11/08/17 10:00 11/11/17 09:07 Ecotrin - PO 81 mg DAILY JEREMÍAS Administration Carvedilol 3.125 mg 11/07/17 22:00 11/11/17 09:07 Coreg - PO 3.125 mg BID JEREMÍAS Administration Furosemide 40 mg 11/10/17 12:45 11/11/17 09:07 Lasix - PO 40 mg DAILY JEREMÍAS Administration Levothyroxine Sodium 25 mcg 11/10/17 12:00 11/11/17 06:17 Synthroid - PO 25 mcg DAILY@0700 JEREMÍAS Administration Melatonin 5 mg 11/07/17 22:00 11/10/17 21:04 Melatonin PO 5 mg HS JEREMÍAS Administration Impression 1. CKD 2. DM 3. CHF 4. fluid overload 5. LV dysfunction s/p AICD 6. hypothyroidism Plan - cont with lasix - renal function is improving - monitor volume status - repeat bmp in am - will follow Dr Ashby
[2017-11-11] MEDS ORDERED: MELATONIN 5 MG TABLETS PO PRN (15:08)
[2017-11-11] MEDS: ALPRAZolam 0.25 MG TABLET PO SCH (21:51)
[2017-11-12] MEDS: ALPRAZolam 0.25 MG TABLET PO SCH ×2 (00:44→22:51)
[2017-11-12] MEDS: LEVOTHYROXINE NA 25 MCG TABLET (FP) PO SCH (06:02)
[2017-11-12 07:17] LABS: URINE APPEARANCE CLEAR; URINE BILIRUBIN NEGATIVE (NEGATIVE); URINE BLOOD NEGATIVE (NEGATIVE); URINE COLOR YELLOW; URINE GLUCOSE (UA) NEGATIVE (NEGATIVE); URINE KETONE NEGATIVE (NEGATIVE); URINE LEUK ESTERASE NEGATIVE (NEGATIVE); URINE NITRITE NEGATIVE (NEGATIVE); URINE PROTEIN NEGATIVE (NEGATIVE); URINE UROBILINOGEN NEGATIVE mg/dL (0.2-1.0)
[2017-11-12 07:41] LABS: ALBUMIN 3.5 g/dl (3.4-5.0); ANION GAP 8 (8-16); BILIRUBIN,TOTAL 1.1 mg/dL (0.2-1.0); BLOOD UREA NITROGEN 48 mg/dL (7-18); CALCIUM 8.1 mg/dL (8.5-10.1); CHLORIDE 99 mmol/L (98-107); CO2 26 mmol/L (21-32); CREATININE 1.8 mg/dL (0.7-1.3); GLUCOSE,RANDOM 126 mg/dL (74-106); POTASSIUM 4.3 mmol/L (3.5-5.1); SGOT/AST 20 U/L (15-37); SGPT/ALT 19 U/L (12-78); SODIUM 133 mmol/L (136-145); TOT PROT 7.2 g/dl (6.4-8.2)
[2017-11-12 07:42] LABS: ALK PHOS 151 U/L (45-117)
--- NOTE | 2017-11-12 09:48 | PN ---
Progress Note (short form) - Note Progress Note: Neurology History of Present Illness The patient is an 87 M with a PMH of CAD, [place], CABG, stents, CHF, AICD, hypertension, hyperlipidemia, chronic kidney disease, vertigo, ambulates w/ walker, who presents via Dr. Castillo for a direct admission for failure to thrive. The patient was recently discharged from our facility for weakness and reportedly was not felling better. I was consulted for syncope and reviewed CT head from 10/15/17 and did not show acute changes. Patient admitted over weekend does report feeling better. Has been getting increased hydration and medical optimization. Patient being considered for rehab. Active Medications Acetaminophen (Tylenol -) 500 mg PO Q4H PRN PRN Reason: HEADACHE Last Admin: 11/10/17 14:15 Dose: 500 mg Alprazolam (Xanax -) 0.5 mg PO HS [facility] Last Admin: 11/12/17 00:44 Dose: 0.5 mg Aspirin (Ecotrin -) 81 mg PO DAILY [facility] Last Admin: 11/11/17 09:07 Dose: 81 mg Carvedilol (Coreg -) 3.125 mg PO BID [facility] Last Admin: 11/11/17 21:51 Dose: 3.125 mg Furosemide (Lasix -) 40 mg PO DAILY [facility] Last Admin: 11/11/17 09:07 Dose: 40 mg Levothyroxine Sodium (Synthroid -) 25 mcg PO DAILY@0700 [facility] Last Admin: 11/12/17 06:02 Dose: 25 mcg Melatonin (Melatonin) 5 mg PO HS PRN PRN Reason: INSOMNIA *Physical Exam Vital Signs Temperature 98.7 F 11/12/17 06:00 Pulse Rate 81 11/12/17 06:00 Respiratory Rate 18 11/12/17 06:00 Blood Pressure 123/80 11/12/17 06:00 O2 Sat by Pulse Oximetry (%) 97 11/11/17 22:00 GENERAL: Well developed, well nourished. Awake and alert. No acute distress. HEENT: Normocephalic, atraumatic. Hearing grossly normal. Moist mucous membranes. PERRLA, EOMI. No conjunctival pallor. Sclera are non-icteric. NECK: Supple. Full ROM. No JVD. CARDIOVASCULAR: Regular rate and rhythm. No murmurs, rubs, or gallops. PULMONARY: No evidence of respiratory distress. Bibasilar rhonchi. ABDOMINAL: Soft. Non-tender. Non-distended. No rebound or guarding. No organomegaly. Normoactive bowel sounds. GENITOURINARY: No CVA tenderness bilaterally. MUSCULOSKELETAL: Normal range of motion at all joints. No bony deformities or tenderness. EXTREMITIES: No cyanosis. No clubbing. No edema. No calf tenderness. SKIN: Warm and dry. Normal capillary refill. No rashes. No jaundice. NEUROLOGICAL: Alert, awake, appropriate. Cranial nerves 2-12 intact. Normal speech. PSYCHIATRIC: Cooperative. Good eye contact. Appropriate mood and affect. CBCD WBC 5.3 K/mm3 (4.0-10.0) 11/07/17 13:40 RBC 3.82 M/mm3 (4.00-5.60) L 11/07/17 13:40 Hgb 10.3 GM/dL (11.7-16.9) L 11/07/17 13:40 Hct 31.9 % (35.4-49) L 11/07/17 13:40 MCV 83.5 fl (80-96) 11/07/17 13:40 MCHC 32.4 g/dl (32.0-35.9) 11/07/17 13:40 RDW 25.3 % (11.9-15.9) H 11/07/17 13:40 Plt Count 136 K/MM3 (134-434) 11/07/17 13:40 MPV 10.1 fl (7.5-11.1) 11/07/17 13:40 CMP Sodium 133 mmol/L (136-145) L 11/12/17 06:00 Potassium 4.3 mmol/L (3.5-5.1) 11/12/17 06:00 Chloride 99 mmol/L (98-107) 11/12/17 06:00 Carbon Dioxide 26 mmol/L (21-32) 11/12/17 06:00 Anion Gap 8 (8-16) 11/12/17 06:00 BUN 48 mg/dL (7-18) H 11/12/17 06:00 Creatinine 1.8 mg/dL (0.7-1.3) H 11/12/17 06:00 Creat Clearance w eGFR 35.87 (>60) 11/12/17 06:00 Calcium 8.1 mg/dL (8.5-10.1) L 11/12/17 06:00 Total Bilirubin 1.1 mg/dL (0.2-1.0) H 11/12/17 06:00 AST 20 U/L (15-37) 11/12/17 06:00 ALT 19 U/L (12-78) 11/12/17 06:00 Alkaline Phosphatase 151 U/L (45-117) H 11/12/17 06:00 Total Protein 7.2 g/dl (6.4-8.2) 11/12/17 06:00 Albumin 3.5 g/dl (3.4-5.0) 11/12/17 06:00 CT head reviewed Plan: 87 M with a PMH of CAD, [place], CABG, stents, CHF, AICD, hypertension, hyperlipidemia, chronic kidney disease, vertigo, ambulates w/ walker, who presents via Dr. Castillo for a direct admission for failure to thrive. The patient was recently discharged from our facility for weakness and reportedly was not felling better. I was consulted for syncope and reviewed CT head from 10/15/17 and did not show acute changes. Patient admitted over weekend does report feeling better. Has been getting increased hydration and medical optimization. Dr. Hsu consulted, note reviewed. -Continue hydration -Physical therapy for gait, consider rehab or outpatient physical therapy if patient amenable -Monitor BP, maintain < 140/90 -Continue anitplatelet medication, plavix -Continue statin for CVA prevention -Can take meclezine for vertigo as needed -Avoid sudden head movement -Monitor lytes -Fall precautions -DVT ppx
[2017-11-12] MEDS: FUROSEMIDE 40 MG TABLET (FP) PO SCH (10:46)
[2017-11-12] MEDS: CARVEDILOL 3.125 MG TABLET (FP) PO SCH ×2 (10:46→22:51)
[2017-11-12] MEDS: ASPIRIN COATED 81 MG TABLET.EC PO SCH (10:46)
--- NOTE | 2017-11-12 12:39 | PN ---
Progress Note, Physician Chief Complaint: leg pains,swelling and tightness around calf area History of Present Illness: hypothyroidism,ashd,pad,htn admitted with weakness,memory loss,dry skin and hair loss found to have hypothyroidism - Current Medication List Current Medications: Active Medications Acetaminophen (Tylenol -) 500 mg PO Q4H PRN PRN Reason: HEADACHE Last Admin: 11/10/17 14:15 Dose: 500 mg Alprazolam (Xanax -) 0.5 mg PO HS [facility] Last Admin: 11/12/17 00:44 Dose: 0.5 mg Aspirin (Ecotrin -) 81 mg PO DAILY [facility] Last Admin: 11/12/17 10:46 Dose: 81 mg Carvedilol (Coreg -) 3.125 mg PO BID [facility] Last Admin: 11/12/17 10:46 Dose: 3.125 mg Furosemide (Lasix -) 40 mg PO DAILY [facility] Last Admin: 11/12/17 10:46 Dose: 40 mg Levothyroxine Sodium (Synthroid -) 25 mcg PO DAILY@0700 [facility] Last Admin: 11/12/17 06:02 Dose: 25 mcg Melatonin (Melatonin) 5 mg PO HS PRN PRN Reason: INSOMNIA - Objective Vital Signs: Vital Signs Temperature 98 F 11/12/17 10:34 Pulse Rate 84 11/12/17 10:34 Respiratory Rate 18 11/12/17 10:34 Blood Pressure 121/49 11/12/17 10:34 O2 Sat by Pulse Oximetry (%) 97 11/11/17 22:00 Constitutional: Yes: Well Nourished Eyes: Yes: EOM Intact HENT: Yes: Normocephalic Neck: Yes: Trachea Midline, Thyromegaly Cardiovascular: Yes: Regular Rate and Rhythm Respiratory: Yes: CTA Bilaterally Gastrointestinal: Yes: Normal Bowel Sounds Genitourinary: Yes: WNL Breast(s): Yes: WNL Musculoskeletal: Yes: Joint Stiffness, Joint Swelling, Muscle Pain, Muscle Weakness Extremities: Yes: Calf Tenderness, Pallor Edema: Yes Edema: LLE: Trace, RLE: Trace Neurological: Yes: Alert, Oriented Labs: CBC, BMP 11/07/17 13:40 11/12/17 06:00 INR, PTT INR 1.39 (0.82-1.09) H 11/07/17 13:40 Problem List - Problems (1) Adult onset hypothyroidism Code(s): E03.8 - OTHER SPECIFIED HYPOTHYROIDISM (2) Chronic kidney disease (CKD) stage G3a/A2, moderately decreased glomerular filtration rate (GFR) between 45-59 mL/min/1.73 square meter and albuminuria creatinine ratio between 30-299 mg/g Code(s): N18.3 - CHRONIC KIDNEY DISEASE, STAGE 3 (MODERATE) (3) FTT (failure to thrive) in adult Code(s): R62.7 - ADULT FAILURE TO THRIVE (4) Hyperkalemia Code(s): E87.5 - HYPERKALEMIA Assessment/Plan Current Active Problems Abnormal LFTs (Acute) Adult onset hypothyroidism (Acute) Arteriosclerotic heart disease (ASHD) (Acute) Chronic kidney disease (CKD) stage G3a/A2, moderately decreased glomerular filtration rate (GFR) between 45-59 mL/min/1.73 square meter and albuminuria creatinine ratio between 30-299 mg/g (Acute) FTT (failure to thrive) in adult (Acute) Hyperkalemia (Acute) Pre-syncope (Acute) hypothyroidism/muscle weakness,leg pain r/o dvt Laboratory Results - last 24 hr 11/11/17 11/12/17 11/12/17 06:35 06:00 06:00 Sodium 133 L Potassium 4.3 Chloride 99 Carbon Dioxide 26 Anion Gap 8 BUN 48 H Creatinine 1.8 H Creat Clearance w eGFR 35.87 Random Glucose 126 H D Calcium 8.1 L Total Bilirubin 1.1 H AST 20 ALT 19 Alkaline Phosphatase 151 H Total Protein 7.2 Albumin 3.5 Free T3 2.2 Urine Color Yellow Urine Appearance Clear Urine pH 5.0 Ur Specific [place] 1.016 Urine Protein Negative Urine Glucose (UA) Negative Urine Ketones Negative Urine Blood Negative Urine Nitrite Negative Urine Bilirubin Negative Urine Urobilinogen Negative Ur Leukocyte Esterase Negative plan: continue synthroid 25mcg check doppler both legs vascular consult
--- NOTE | 2017-11-12 15:25 | PN ---
Progress Note (short form) - Note Progress Note: Feels a little better today. Was OOB today and ambulated. Denies SOB. Still with some generalized malaise and fatigue. No acute events overnight. D/W Renal will give 1 additional dose of Lasix today and monitor for response. Intake & Output 11/09/17 11/10/17 11/11/17 11/12/17 23:59 23:59 23:59 23:59 Intake Total 750 370 150 500 Output Total 700 Balance 750 370 150 -200 Weight 175 lb 171 lb 4.8 oz 179 lb 181 lb 3.2 oz Last Vital Signs Temp Pulse Resp BP Pulse Ox 97.4 F L 80 20 125/78 97 11/12/17 13:38 11/12/17 13:38 11/12/17 13:38 11/12/17 13:38 11/11/17 22:00 Active Medications Acetaminophen (Tylenol -) 500 mg PO Q4H PRN PRN Reason: HEADACHE Last Admin: 11/10/17 14:15 Dose: 500 mg Alprazolam (Xanax -) 0.5 mg PO HS [facility] Last Admin: 11/12/17 00:44 Dose: 0.5 mg Aspirin (Ecotrin -) 81 mg PO DAILY [facility] Last Admin: 11/12/17 10:46 Dose: 81 mg Carvedilol (Coreg -) 3.125 mg PO BID [facility] Last Admin: 11/12/17 10:46 Dose: 3.125 mg Furosemide (Lasix -) 40 mg PO DAILY [facility] Last Admin: 11/12/17 10:46 Dose: 40 mg Levothyroxine Sodium (Synthroid -) 25 mcg PO DAILY@0700 [facility] Last Admin: 11/12/17 06:02 Dose: 25 mcg Melatonin (Melatonin) 5 mg PO HS PRN PRN Reason: INSOMNIA Constitutional: Yes: NAD Eyes: Yes: EOM Intact HENT: Yes: Normocephalic Neck: Yes: Thyromegaly Cardiovascular: Yes: Regular Rate and Rhythm Respiratory: Yes: few rhonchi Gastrointestinal: Yes: Normal Bowel Sounds ...Rectal Exam: Yes: Deferred Renal/: Yes: WNL Breast(s): Yes: WNL Musculoskeletal: Yes: WNL Extremities: Yes: WNL Edema: No Peripheral Pulses WNL: Yes Integumentary: Yes: WNL Neurological: Yes: Alert, Oriented Labs: Laboratory Results - last 24 hr 11/11/17 11/12/17 11/12/17 06:35 06:00 06:00 Sodium 133 L Potassium 4.3 Chloride 99 Carbon Dioxide 26 Anion Gap 8 BUN 48 H Creatinine 1.8 H Creat Clearance w eGFR 35.87 Random Glucose 126 H D Calcium 8.1 L Total Bilirubin 1.1 H AST 20 ALT 19 Alkaline Phosphatase 151 H Total Protein 7.2 Albumin 3.5 Free T4 1.14 Free T3 2.2 Urine Color Yellow Urine Appearance Clear Urine pH 5.0 Ur Specific [place] 1.016 Urine Protein Negative Urine Glucose (UA) Negative Urine Ketones Negative Urine Blood Negative Urine Nitrite Negative Urine Bilirubin Negative Urine Urobilinogen Negative Ur Leukocyte Esterase Negative Problem List - Problems (1) Pre-syncope Code(s): R55 - SYNCOPE AND COLLAPSE (2) Acute exacerbation of CHF (congestive heart failure) Code(s): I50.9 - HEART FAILURE, UNSPECIFIED (3) Anxiety Code(s): F41.9 - ANXIETY DISORDER, UNSPECIFIED (4) COPD (chronic obstructive pulmonary disease) Code(s): J44.9 - CHRONIC OBSTRUCTIVE PULMONARY DISEASE, UNSPECIFIED (5) Chronic mastoiditis, bilateral Code(s): H70.13 - CHRONIC MASTOIDITIS, BILATERAL (6) Compliance poor Code(s): Z91.19 - PATIENT'S NONCOMPLIANCE W OTH MEDICAL TREATMENT AND REGIMEN (7) Dizziness Code(s): R42 - DIZZINESS AND GIDDINESS (8) Arteriosclerotic heart disease (ASHD) Code(s): I25.10 - ATHSCL HEART DISEASE OF [place] CORONARY ARTERY W/O ANG PCTRS HF/LVD/CABG/AICD/PCI STENTS/CRI/HTN/HPL PRESYNCOPAL/MULTIPLE FALLS RENAL/CARDIO EVAL APPRECIATED D/W RENAL; 1 ADDITIONAL DOSE OF LASIX TODAY AND MONITOR FOR RESPONSE CONTINUE HOME CARDIAC MEDS/O2 SUPPLEMENTATION CONTINUE TO TREND WEIGHTS SYNTHROID 25 MCG PO TOLERATED FALL PRECAUTIONS DR NEWBY
--- NOTE | 2017-11-12 16:30 | PN ---
Progress Note, Physician History of Present Illness: Pt seen and examined at bedside. He is awake and alert. He complains of lower ext edema. - Current Medication List Current Medications: Active Medications Acetaminophen (Tylenol -) 500 mg PO Q4H PRN PRN Reason: HEADACHE Last Admin: 11/10/17 14:15 Dose: 500 mg Alprazolam (Xanax -) 0.5 mg PO HS [facility] Last Admin: 11/12/17 00:44 Dose: 0.5 mg Aspirin (Ecotrin -) 81 mg PO DAILY [facility] Last Admin: 11/12/17 10:46 Dose: 81 mg Carvedilol (Coreg -) 3.125 mg PO BID [facility] Last Admin: 11/12/17 10:46 Dose: 3.125 mg Furosemide (Lasix -) 40 mg PO DAILY [facility] Last Admin: 11/12/17 10:46 Dose: 40 mg Levothyroxine Sodium (Synthroid -) 25 mcg PO DAILY@0700 [facility] Last Admin: 11/12/17 06:02 Dose: 25 mcg Melatonin (Melatonin) 5 mg PO HS PRN PRN Reason: INSOMNIA - Objective Vital Signs: Vital Signs Temperature 97.4 F L 11/12/17 13:38 Pulse Rate 80 11/12/17 13:38 Respiratory Rate 20 11/12/17 13:38 Blood Pressure 125/78 11/12/17 13:38 O2 Sat by Pulse Oximetry (%) 97 11/11/17 22:00 Constitutional: Yes: Calm Eyes: Yes: Conjunctiva Clear HENT: Yes: Atraumatic Neck: Yes: Supple Cardiovascular: Yes: S1, S2 Respiratory: Yes: CTA Bilaterally Gastrointestinal: Yes: Soft Genitourinary: Yes: WNL Musculoskeletal: Yes: WNL Edema: Yes Edema: LLE: 2+, RLE: 2+ Neurological: Yes: Oriented Psychiatric: Yes: Oriented Labs: CBC, BMP 11/07/17 13:40 11/12/17 06:00 INR, PTT INR 1.39 (0.82-1.09) H 11/07/17 13:40 Problem List - Problems (1) Chronic kidney disease (CKD) stage G3a/A2, moderately decreased glomerular filtration rate (GFR) between 45-59 mL/min/1.73 square meter and albuminuria creatinine ratio between 30-299 mg/g Code(s): N18.3 - CHRONIC KIDNEY DISEASE, STAGE 3 (MODERATE) (2) Hyperkalemia Code(s): E87.5 - HYPERKALEMIA (3) Acute exacerbation of CHF (congestive heart failure) Code(s): I50.9 - HEART FAILURE, UNSPECIFIED (4) COPD (chronic obstructive pulmonary disease) Code(s): J44.9 - CHRONIC OBSTRUCTIVE PULMONARY DISEASE, UNSPECIFIED Assessment/Plan Current Medications Generic Name Dose Route Start Last Admin Trade Name Freq PRN Reason Stop Dose Admin Acetaminophen 500 mg 11/10/17 12:38 11/10/17 14:15 Tylenol - PO 500 mg Q4H PRN Administration HEADACHE Alprazolam 0.5 mg 11/07/17 22:00 11/12/17 00:44 Xanax - PO 0.5 mg HS JEREMÍAS Administration Aspirin 81 mg 11/08/17 10:00 11/12/17 10:46 Ecotrin - PO 81 mg DAILY JEREMÍAS Administration Carvedilol 3.125 mg 11/07/17 22:00 11/12/17 10:46 Coreg - PO 3.125 mg BID JEREMÍAS Administration Furosemide 40 mg 11/10/17 12:45 11/12/17 10:46 Lasix - PO 40 mg DAILY JEREMÍAS Administration Levothyroxine Sodium 25 mcg 11/10/17 12:00 11/12/17 06:02 Synthroid - PO 25 mcg DAILY@0700 JEREMÍAS Administration Melatonin 5 mg 11/11/17 15:08 Melatonin PO HS PRN INSOMNIA Impression 1. CKD 2. DM 3. CHF 4. fluid overload 5. LV dysfunction s/p AICD 6. hypothyroidism Plan - will give an additional dose of lasix - repeat labs in am - elevate legs when sitting - discussed with pulmonary - monitor volume status - repeat bmp in am - will follow Dr Ashby
[2017-11-12] MEDS ORDERED: FUROSEMIDE 40 MG TABLET (FP) PO ONE (16:31)
[2017-11-12] MEDS ORDERED: PT OWN MED DRAWER 7, Y5N ONE (22:41)
[2017-11-13] MEDS: LEVOTHYROXINE NA 25 MCG TABLET (FP) PO SCH (06:46)
[2017-11-13 08:07] LABS: ALBUMIN 3.5 g/dl (3.4-5.0); ANION GAP 10 (8-16); BLOOD UREA NITROGEN 48 mg/dL (7-18); CALCIUM 8.5 mg/dL (8.5-10.1); CHLORIDE 99 mmol/L (98-107); CO2 26 mmol/L (21-32); GLUCOSE,RANDOM 95 mg/dL (74-106); POTASSIUM 4.2 mmol/L (3.5-5.1); SODIUM 135 mmol/L (136-145)
[2017-11-13 08:12] LABS: ALK PHOS 153 U/L (45-117); CREATININE 1.7 mg/dL (0.7-1.3); SGOT/AST 19 U/L (15-37); SGPT/ALT 17 U/L (12-78); TOT PROT 7.2 g/dl (6.4-8.2)
[2017-11-13] MEDS: ASPIRIN COATED 81 MG TABLET.EC PO SCH (09:43)
[2017-11-13] MEDS: CARVEDILOL 3.125 MG TABLET (FP) PO SCH ×2 (09:43→21:13)
[2017-11-13] MEDS: FUROSEMIDE 40 MG TABLET (FP) PO SCH ×2 (09:43→14:25)
--- NOTE | 2017-11-13 09:44 | PN ---
Progress Note (short form) - Note Progress Note: Neurology History of Present Illness The patient is an 87 M with a PMH of CAD, [place], CABG, stents, CHF, AICD, hypertension, hyperlipidemia, chronic kidney disease, vertigo, ambulates w/ walker, who presents via Dr. Castillo for a direct admission for failure to thrive. The patient was recently discharged from our facility for weakness and reportedly was not felling better. I was consulted for syncope and reviewed CT head from 10/15/17 and did not show acute changes. Patient admitted over weekend does report feeling better. Has been getting increased hydration and medical optimization. Patient being considered for rehab. Doing well this AM and appears improved. No new neurologic complaints. Active Medications Acetaminophen (Tylenol -) 500 mg PO Q4H PRN PRN Reason: HEADACHE Last Admin: 11/10/17 14:15 Dose: 500 mg Alprazolam (Xanax -) 0.5 mg PO HS [facility] Last Admin: 11/12/17 22:51 Dose: 0.5 mg Aspirin (Ecotrin -) 81 mg PO DAILY [facility] Last Admin: 11/12/17 10:46 Dose: 81 mg Carvedilol (Coreg -) 3.125 mg PO BID [facility] Last Admin: 11/12/17 22:51 Dose: 3.125 mg Furosemide (Lasix -) 40 mg PO DAILY [facility] Last Admin: 11/12/17 10:46 Dose: 40 mg Levothyroxine Sodium (Synthroid -) 25 mcg PO DAILY@0700 [facility] Last Admin: 11/13/17 06:46 Dose: 25 mcg Melatonin (Melatonin) 5 mg PO HS PRN PRN Reason: INSOMNIA *Physical Exam Vital Signs Temperature 98.7 F 11/13/17 06:00 Pulse Rate 79 11/13/17 06:00 Respiratory Rate 18 11/13/17 06:00 Blood Pressure 143/74 11/13/17 06:00 O2 Sat by Pulse Oximetry (%) 98 11/12/17 21:00 GENERAL: Well developed, well nourished. Awake and alert. No acute distress. HEENT: Normocephalic, atraumatic. Hearing grossly normal. Moist mucous membranes. PERRLA, EOMI. No conjunctival pallor. Sclera are non-icteric. NECK: Supple. Full ROM. No JVD. CARDIOVASCULAR: Regular rate and rhythm. No murmurs, rubs, or gallops. PULMONARY: No evidence of respiratory distress. Bibasilar rhonchi. ABDOMINAL: Soft. Non-tender. Non-distended. No rebound or guarding. No organomegaly. Normoactive bowel sounds. GENITOURINARY: No CVA tenderness bilaterally. MUSCULOSKELETAL: Normal range of motion at all joints. No bony deformities or tenderness. EXTREMITIES: No cyanosis. No clubbing. No edema. No calf tenderness. SKIN: Warm and dry. Normal capillary refill. No rashes. No jaundice. NEUROLOGICAL: Alert, awake, appropriate. Cranial nerves 2-12 intact. Normal speech. PSYCHIATRIC: Cooperative. Good eye contact. Appropriate mood and affect. CBCD WBC 5.3 K/mm3 (4.0-10.0) 11/07/17 13:40 RBC 3.82 M/mm3 (4.00-5.60) L 11/07/17 13:40 Hgb 10.3 GM/dL (11.7-16.9) L 11/07/17 13:40 Hct 31.9 % (35.4-49) L 11/07/17 13:40 MCV 83.5 fl (80-96) 11/07/17 13:40 MCHC 32.4 g/dl (32.0-35.9) 11/07/17 13:40 RDW 25.3 % (11.9-15.9) H 11/07/17 13:40 Plt Count 136 K/MM3 (134-434) 11/07/17 13:40 MPV 10.1 fl (7.5-11.1) 11/07/17 13:40 CMP Sodium 135 mmol/L (136-145) L 11/13/17 06:00 Potassium 4.2 mmol/L (3.5-5.1) 11/13/17 06:00 Chloride 99 mmol/L (98-107) 11/13/17 06:00 Carbon Dioxide 26 mmol/L (21-32) 11/13/17 06:00 Anion Gap 10 (8-16) 11/13/17 06:00 BUN 48 mg/dL (7-18) H 11/13/17 06:00 Creatinine 1.7 mg/dL (0.7-1.3) H 11/13/17 06:00 Creat Clearance w eGFR 38.32 (>60) 11/13/17 06:00 Calcium 8.5 mg/dL (8.5-10.1) 11/13/17 06:00 Total Bilirubin 1.0 mg/dL (0.2-1.0) 11/13/17 06:00 AST 19 U/L (15-37) 11/13/17 06:00 ALT 17 U/L (12-78) 11/13/17 06:00 Alkaline Phosphatase 153 U/L (45-117) H 11/13/17 06:00 Total Protein 7.2 g/dl (6.4-8.2) 11/13/17 06:00 Albumin 3.5 g/dl (3.4-5.0) 11/13/17 06:00 CT head reviewed Plan: 87 M with a PMH of CAD, [place], CABG, stents, CHF, AICD, hypertension, hyperlipidemia, chronic kidney disease, vertigo, ambulates w/ walker, who presents via Dr. Castillo for a direct admission for failure to thrive. The patient was recently discharged from our facility for weakness and reportedly was not felling better. I was consulted for syncope and reviewed CT head from 10/15/17 and did not show acute changes. Patient admitted over weekend does report feeling better. Has been getting increased hydration and medical optimization. Dr. Hsu consulted, note reviewed. -Continue hydration -Physical therapy for gait, consider rehab or outpatient physical therapy if patient amenable -Monitor BP, maintain < 140/90 -Continue anitplatelet medication, plavix -Continue statin for CVA prevention -Can take meclezine for vertigo as needed -Avoid sudden head movement -Monitor lytes -Fall precautions -DVT ppx -For rehab placement
--- NOTE | 2017-11-13 09:56 | PN ---
Progress Note (short form) - Note Progress Note: 87 year old male, known case of CAD,s/p CABG, s/p NSTEMI, s/p PCI/stenting, severe LV systolic dysfunction, COPD, ILD, DM, hypothyroidism, s/p AICD for primary prophylaxis. Patient denies having shortness of breath, PND, or orthopnea. Still has pedal edema. No chest pain or discomfort reported. States that the fatigue and intolerance to cold is less pronounced. Complaining of lower extremity parasthesia. Active Medications Generic Name Dose Route Start Last Admin Trade Name Freq PRN Reason Stop Dose Admin Acetaminophen 500 mg 11/10/17 12:38 11/10/17 14:15 Tylenol - PO 500 mg Q4H PRN Administration HEADACHE Alprazolam 0.5 mg 11/07/17 22:00 11/12/17 22:51 Xanax - PO 0.5 mg HS JEREMÍAS Administration Aspirin 81 mg 11/08/17 10:00 11/12/17 10:46 Ecotrin - PO 81 mg DAILY JEREMÍAS Administration Carvedilol 3.125 mg 11/07/17 22:00 11/12/17 22:51 Coreg - PO 3.125 mg BID JEREMÍAS Administration Furosemide 40 mg 11/10/17 12:45 11/12/17 10:46 Lasix - PO 40 mg DAILY JEREMÍAS Administration Levothyroxine Sodium 25 mcg 11/10/17 12:00 11/13/17 06:46 Synthroid - PO 25 mcg DAILY@0700 JEREMÍAS Administration Melatonin 5 mg 11/11/17 15:08 Melatonin PO HS PRN INSOMNIA 87 year old male in no acute distress, no pallor, cyanosis, no clubbing or jaundice. Last Vital Signs Temp Pulse Resp BP Pulse Ox 98.7 F 79 18 143/74 98 11/13/17 06:00 11/13/17 06:00 11/13/17 06:00 11/13/17 06:00 11/12/17 21:00 Intake & Output 11/10/17 11/11/17 11/12/17 11/13/17 23:59 23:59 23:59 23:59 Intake Total 370 150 600 Output Total 700 Balance 370 150 -100 Weight 171 lb 4.8 oz 179 lb 181 lb 3.2 oz 181 lb 1.6 oz NECK: Supple slightly +ve HJR, Pulsatile neck veins. Carotids are palpable, no bruits heard. HEART: PMI im the 5th ICS, S1 & S2 are normal, DUARTE grade II/ at the 2nd ICS, gradeI/ systolic murmur LSB and apex. No gallops heard. LUNGS:Fine bilateral basilar crepitations. ABDOMEN: Soft, nontender, no organomegaly or palpable masses felt. EXTREMITIES: 2+ bilateral pedal edema. No calf tenderness. CBC, BMP 11/07/17 13:40 11/13/17 06:00 IMPRESSION: 1. CAD, S/p CABG, s/p NSTEMI, s/p PCI/Stenting 2. LV systolic dysfunction (Severe). 3. COPD/ILD. 4. CKD. 5. DM. 6. Lower extremity parasthesia most likely related to Diabetes mellitus. 7. CHF. 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 9. Pedal edema is partly related to venous insufficiency/vein stripping. RECOMMENDATIONS: 1. Consider resumption of Aldactone under close monitoring of electrolytes, if agreeable with renal service. 2. Coreg can be increased to 6.25 mg PO BID. 3. Patient was counseled regarding his dietary restrictions including curtailing salt intake.
--- NOTE | 2017-11-13 12:44 | PN ---
Progress Note, Physician History of Present Illness: Pt seen and examined at bedside. He denies shortness of breath. He is awake and alert. - Current Medication List Current Medications: Active Medications Acetaminophen (Tylenol -) 500 mg PO Q4H PRN PRN Reason: HEADACHE Last Admin: 11/10/17 14:15 Dose: 500 mg Alprazolam (Xanax -) 0.5 mg PO HS [facility] Last Admin: 11/12/17 22:51 Dose: 0.5 mg Aspirin (Ecotrin -) 81 mg PO DAILY [facility] Last Admin: 11/13/17 09:43 Dose: 81 mg Carvedilol (Coreg -) 3.125 mg PO BID [facility] Last Admin: 11/13/17 09:43 Dose: 3.125 mg Furosemide (Lasix -) 40 mg PO DAILY [facility] Last Admin: 11/13/17 09:43 Dose: 40 mg Levothyroxine Sodium (Synthroid -) 25 mcg PO DAILY@0700 [facility] Last Admin: 11/13/17 06:46 Dose: 25 mcg Melatonin (Melatonin) 5 mg PO HS PRN PRN Reason: INSOMNIA - Objective Vital Signs: Vital Signs Temperature 97.5 F L 11/13/17 09:49 Pulse Rate 83 11/13/17 09:49 Respiratory Rate 18 11/13/17 09:49 Blood Pressure 109/54 11/13/17 09:49 O2 Sat by Pulse Oximetry (%) 98 11/12/17 21:00 Constitutional: Yes: Calm Eyes: Yes: Conjunctiva Clear HENT: Yes: Atraumatic Neck: Yes: Supple Cardiovascular: Yes: S1, S2 Respiratory: Yes: CTA Bilaterally Gastrointestinal: Yes: Soft Genitourinary: Yes: WNL Edema: Yes Edema: LLE: 1+, RLE: 1+ Neurological: Yes: Oriented Psychiatric: Yes: Oriented Labs: CBC, BMP 11/07/17 13:40 11/13/17 06:00 INR, PTT INR 1.39 (0.82-1.09) H 11/07/17 13:40 Problem List - Problems (1) Chronic kidney disease (CKD) stage G3a/A2, moderately decreased glomerular filtration rate (GFR) between 45-59 mL/min/1.73 square meter and albuminuria creatinine ratio between 30-299 mg/g Code(s): N18.3 - CHRONIC KIDNEY DISEASE, STAGE 3 (MODERATE) (2) Hyperkalemia Code(s): E87.5 - HYPERKALEMIA (3) Acute exacerbation of CHF (congestive heart failure) Code(s): I50.9 - HEART FAILURE, UNSPECIFIED (4) COPD (chronic obstructive pulmonary disease) Code(s): J44.9 - CHRONIC OBSTRUCTIVE PULMONARY DISEASE, UNSPECIFIED Assessment/Plan Current Medications Generic Name Dose Route Start Last Admin Trade Name Freq PRN Reason Stop Dose Admin Acetaminophen 500 mg 11/10/17 12:38 11/10/17 14:15 Tylenol - PO 500 mg Q4H PRN Administration HEADACHE Alprazolam 0.5 mg 11/07/17 22:00 11/12/17 22:51 Xanax - PO 0.5 mg HS JEREMÍAS Administration Aspirin 81 mg 11/08/17 10:00 11/13/17 09:43 Ecotrin - PO 81 mg DAILY JEREMÍAS Administration Carvedilol 3.125 mg 11/07/17 22:00 11/13/17 09:43 Coreg - PO 3.125 mg BID JEREMÍAS Administration Furosemide 40 mg 11/10/17 12:45 11/13/17 09:43 Lasix - PO 40 mg DAILY JEREMÍAS Administration Levothyroxine Sodium 25 mcg 11/10/17 12:00 11/13/17 06:46 Synthroid - PO 25 mcg DAILY@0700 JEREMÍAS Administration Melatonin 5 mg 11/11/17 15:08 Melatonin PO HS PRN INSOMNIA Impression 1. CKD 2. DM 3. CHF 4. fluid overload 5. LV dysfunction s/p AICD 6. hypothyroidism Plan - will switch lasix to bid - he refused the renal ultrasound yesterday, he will go today - check daily weights - elevate legs when sitting - monitor volume status - repeat bmp in am - will follow Dr Ashby
--- NOTE | 2017-11-13 13:23 | PN ---
Progress Note (short form) - Note Progress Note: PULMONARY/MEDICAL ATTENDING VSS/AFEBRILE SUBJECTIVE IMPROVEMENT TSH ELEVATED/STARTED ON SYNTHROID ANICTERIC DIMINISHED AT BASES S1S2 BS+ 2+ EDEMA LABS/MEDS/NOTES/IMAGES/REVIEWED CHF/LVD/CABG/AICD/PCI STENTS/CRI/HTN/HPL/HYPOTHYROID PRESYNCOPAL/MULTIPLE FALLS RENAL/CARDIO EVAL APPRECIATED CONTINUE HOME CARDIAC MEDS/O2 SUPPLEMENTATION ENDO/NEURO APRECIATED THYROID US REVIEWED SYNTHROID 25 MCG TO CONTINUE OK FOR SNF/REHAB AT [facility] IN AM Venkata BRINK MD Problem List - Problems (1) Pre-syncope Code(s): R55 - SYNCOPE AND COLLAPSE (2) Acute exacerbation of CHF (congestive heart failure) Code(s): I50.9 - HEART FAILURE, UNSPECIFIED (3) Anxiety Code(s): F41.9 - ANXIETY DISORDER, UNSPECIFIED (4) COPD (chronic obstructive pulmonary disease) Code(s): J44.9 - CHRONIC OBSTRUCTIVE PULMONARY DISEASE, UNSPECIFIED (5) Chronic mastoiditis, bilateral Code(s): H70.13 - CHRONIC MASTOIDITIS, BILATERAL (6) Compliance poor Code(s): Z91.19 - PATIENT'S NONCOMPLIANCE W OTH MEDICAL TREATMENT AND REGIMEN (7) Dizziness Code(s): R42 - DIZZINESS AND GIDDINESS (8) Arteriosclerotic heart disease (ASHD) Code(s): I25.10 - ATHSCL HEART DISEASE OF [place] CORONARY ARTERY W/O ANG PCTRS
--- NOTE | 2017-11-13 15:55 | PN ---
Progress Note (short form) - Note Progress Note: Vascular Surgery Pt seen and examined. Doing well. Venous duplex is neg for DVT. Bl lower ext warm, with dopplerable pulses. No need for any intervention at this time. Pt says he is going to [facility]. medical management. Prudencio charles DO
[2017-11-13] MEDS: ALPRAZolam 0.25 MG TABLET PO SCH (21:12)
[2017-11-14] MEDS ORDERED: PT OWN MED DRAWER 7, Y5N ONE (01:22)
[2017-11-14] MEDS: FUROSEMIDE 40 MG TABLET (FP) PO SCH ×2 (06:28→14:30)
[2017-11-14] MEDS: LEVOTHYROXINE NA 25 MCG TABLET (FP) PO SCH (06:28)
--- NOTE | 2017-11-14 10:04 | PN ---
Progress Note (short form) - Note Progress Note: Neurology History of Present Illness The patient is an 87 M with a PMH of CAD, CO, CABG, stents, CHF, AICD, hypertension, hyperlipidemia, chronic kidney disease, vertigo, ambulates w/ walker, who presents via Dr. Castillo for a direct admission for failure to thrive. The patient was recently discharged from our facility for weakness and reportedly was not felling better. I was consulted for syncope and reviewed CT head from 10/15/17 and did not show acute changes. Patient admitted over weekend does report feeling better. Has been getting increased hydration and medical optimization. Patient being considered for rehab. Doing well this AM and appears improved. No new neurologic complaints. Discussed with nurse, possibly for placement today if medically cleared. Active Medications Acetaminophen (Tylenol -) 500 mg PO Q4H PRN PRN Reason: HEADACHE Last Admin: 11/10/17 14:15 Dose: 500 mg Alprazolam (Xanax -) 0.5 mg PO HS [facility] Last Admin: 11/13/17 21:12 Dose: 0.5 mg Aspirin (Ecotrin -) 81 mg PO DAILY [facility] Last Admin: 11/13/17 09:43 Dose: 81 mg Carvedilol (Coreg -) 3.125 mg PO BID [facility] Last Admin: 11/13/17 21:13 Dose: 3.125 mg Furosemide (Lasix -) 40 mg PO BID@0600,1400 [facility] Last Admin: 11/14/17 06:28 Dose: 40 mg Levothyroxine Sodium (Synthroid -) 25 mcg PO DAILY@0700 [facility] Last Admin: 11/14/17 06:28 Dose: 25 mcg Melatonin (Melatonin) 5 mg PO HS PRN PRN Reason: INSOMNIA *Physical Exam Vital Signs Temperature 98.0 F 11/14/17 06:44 Pulse Rate 85 11/14/17 06:44 Respiratory Rate 20 11/14/17 06:44 Blood Pressure 117/69 11/14/17 06:44 O2 Sat by Pulse Oximetry (%) 98 11/12/17 21:00 GENERAL: Well developed, well nourished. Awake and alert. No acute distress. HEENT: Normocephalic, atraumatic. Hearing grossly normal. Moist mucous membranes. PERRLA, EOMI. No conjunctival pallor. Sclera are non-icteric. NECK: Supple. Full ROM. No JVD. CARDIOVASCULAR: Regular rate and rhythm. No murmurs, rubs, or gallops. PULMONARY: No evidence of respiratory distress. Bibasilar rhonchi. ABDOMINAL: Soft. Non-tender. Non-distended. No rebound or guarding. No organomegaly. Normoactive bowel sounds. GENITOURINARY: No CVA tenderness bilaterally. MUSCULOSKELETAL: Normal range of motion at all joints. No bony deformities or tenderness. EXTREMITIES: No cyanosis. No clubbing. No edema. No calf tenderness. SKIN: Warm and dry. Normal capillary refill. No rashes. No jaundice. NEUROLOGICAL: Alert, awake, appropriate. Cranial nerves 2-12 intact. Normal speech. PSYCHIATRIC: Cooperative. Good eye contact. Appropriate mood and affect. CBCD WBC 5.3 K/mm3 (4.0-10.0) 11/07/17 13:40 RBC 3.82 M/mm3 (4.00-5.60) L 11/07/17 13:40 Hgb 10.3 GM/dL (11.7-16.9) L 11/07/17 13:40 Hct 31.9 % (35.4-49) L 11/07/17 13:40 MCV 83.5 fl (80-96) 11/07/17 13:40 MCHC 32.4 g/dl (32.0-35.9) 11/07/17 13:40 RDW 25.3 % (11.9-15.9) H 11/07/17 13:40 Plt Count 136 K/MM3 (134-434) 11/07/17 13:40 MPV 10.1 fl (7.5-11.1) 11/07/17 13:40 CMP Sodium 135 mmol/L (136-145) L 11/13/17 06:00 Potassium 4.2 mmol/L (3.5-5.1) 11/13/17 06:00 Chloride 99 mmol/L (98-107) 11/13/17 06:00 Carbon Dioxide 26 mmol/L (21-32) 11/13/17 06:00 Anion Gap 10 (8-16) 11/13/17 06:00 BUN 48 mg/dL (7-18) H 11/13/17 06:00 Creatinine 1.7 mg/dL (0.7-1.3) H 11/13/17 06:00 Creat Clearance w eGFR 38.32 (>60) 11/13/17 06:00 Calcium 8.5 mg/dL (8.5-10.1) 11/13/17 06:00 Total Bilirubin 1.0 mg/dL (0.2-1.0) 11/13/17 06:00 AST 19 U/L (15-37) 11/13/17 06:00 ALT 17 U/L (12-78) 11/13/17 06:00 Alkaline Phosphatase 153 U/L (45-117) H 11/13/17 06:00 Total Protein 7.2 g/dl (6.4-8.2) 11/13/17 06:00 Albumin 3.5 g/dl (3.4-5.0) 11/13/17 06:00 CT head reviewed Plan: 87 M with a PMH of CAD, CO, CABG, stents, CHF, AICD, hypertension, hyperlipidemia, chronic kidney disease, vertigo, ambulates w/ walker, who presents via Dr. Castillo for a direct admission for failure to thrive. The patient was recently discharged from our facility for weakness and reportedly was not felling better. I was consulted for syncope and reviewed CT head from 10/15/17 and did not show acute changes. Patient admitted over weekend does report feeling better. Has been getting increased hydration and medical optimization. Dr. Hsu consulted, note reviewed. -Continue hydration -Physical therapy for gait, consider rehab or outpatient physical therapy if patient amenable -Monitor BP, maintain < 140/90 -Continue anitplatelet medication, plavix -Continue statin for CVA prevention -Can take meclezine for vertigo as needed -Avoid sudden head movement -Monitor lytes -Fall precautions -DVT ppx -For rehab placement
--- NOTE | 2017-11-14 10:08 | DS ---
Physical Examination Vital Signs: Vital Signs Temperature 98.0 F 11/14/17 06:44 Pulse Rate 85 11/14/17 06:44 Respiratory Rate 20 11/14/17 06:44 Blood Pressure 117/69 11/14/17 06:44 O2 Sat by Pulse Oximetry (%) 98 11/12/17 21:00 Findings/Remarks: Overall better. SOB is better. Peripheral edema is somewhat better. Constitutional: Yes: No Distress, Calm Eyes: Yes: Conjunctiva Clear, EOM Intact HENT: Yes: Atraumatic, Normocephalic Neck: Yes: Supple, Trachea Midline Cardiovascular: Yes: Regular Rate and Rhythm Respiratory: Yes: Cough, Rhonchi. No: Accessory Muscle Use, On Nasal O2, Rales , SOB, Stridor, Tachypnea, Wheezes Gastrointestinal: Yes: Normal Bowel Sounds, Soft ...Rectal Exam: Yes: Deferred Musculoskeletal: Yes: WNL Extremities: Yes: WNL Edema: Yes Peripheral Pulses WNL: Yes Integumentary: Yes: Venous Stasis Changes. No: Jaundice Neurological: Yes: Alert, Oriented ...Motor Strength: WNL Psychiatric: Yes: WNL, Alert, Oriented Labs: CBC, BMP 11/07/17 13:40 11/13/17 06:00 Discharge Summary Reason For Visit: FAILURE TO THRIVE IN ADULT Current Active Problems Abnormal LFTs (Acute) Adult onset hypothyroidism (Acute) Arteriosclerotic heart disease (ASHD) (Acute) Chronic kidney disease (CKD) stage G3a/A2, moderately decreased glomerular filtration rate (GFR) between 45-59 mL/min/1.73 square meter and albuminuria creatinine ratio between 30-299 mg/g (Acute) FTT (failure to thrive) in adult (Acute) Hyperkalemia (Acute) Pre-syncope (Acute) Condition: Fair - Instructions Referrals: Anmol Casey MD [Primary Care Provider] - Disposition: [facility] - Home Medications Comprehensive Discharge Medication List: DISCHARGE MEDICATIONS: Clopidogrel Bisulfate [Plavix -] 75 mg PO AM Aspirin [Ecotrin] 81 mg PO DAILY Acetaminophen [Tylenol .Regular Strength -] 650 mg PO Q6H PRN Albuterol 0.083% Nebulizer Lena [Ventolin 0.083% Nebulizer Soln -] 1 amp NEB TIDR PRN Alprazolam [Xanax] 0.5 mg PO HS PRN Carvedilol [Coreg -] 3.125 mg PO BID Furosemide [Lasix -] [address] Julio
[2017-11-14] MEDS: CARVEDILOL 3.125 MG TABLET (FP) PO SCH (10:39)
[2017-11-14] MEDS: ASPIRIN COATED 81 MG TABLET.EC PO SCH (10:39)
[2017-11-14 10:52] VITALS: PULSE 82
[2017-11-14 11:25] LABS: ALBUMIN 3.4 g/dl (3.4-5.0); ANION GAP 11 (8-16); BLOOD UREA NITROGEN 48 mg/dL (7-18); CALCIUM 8.5 mg/dL (8.5-10.1); CHLORIDE 98 mmol/L (98-107); CO2 26 mmol/L (21-32); CREATININE 1.7 mg/dL (0.7-1.3); GLUCOSE,RANDOM 112 mg/dL (74-106); POTASSIUM 4.3 mmol/L (3.5-5.1); SGOT/AST 21 U/L (15-37); SGPT/ALT 19 U/L (12-78); SODIUM 135 mmol/L (136-145)
[2017-11-14 11:27] LABS: ALK PHOS 141 U/L (45-117); TOT PROT 7.3 g/dl (6.4-8.2)
--- NOTE | 2017-11-14 11:40 | PN ---
Progress Note, Physician History of Present Illness: Pt seen and examined at bedside. He is awake and alert. He denies shortness of breath. - Current Medication List Current Medications: Active Medications Acetaminophen (Tylenol -) 500 mg PO Q4H PRN PRN Reason: HEADACHE Last Admin: 11/10/17 14:15 Dose: 500 mg Alprazolam (Xanax -) 0.5 mg PO HS [facility] Last Admin: 11/13/17 21:12 Dose: 0.5 mg Aspirin (Ecotrin -) 81 mg PO DAILY [facility] Last Admin: 11/14/17 10:39 Dose: 81 mg Carvedilol (Coreg -) 3.125 mg PO BID [facility] Last Admin: 11/14/17 10:39 Dose: 3.125 mg Furosemide (Lasix -) 40 mg PO BID@0600,1400 [facility] Last Admin: 11/14/17 06:28 Dose: 40 mg Levothyroxine Sodium (Synthroid -) 25 mcg PO DAILY@0700 [facility] Last Admin: 11/14/17 06:28 Dose: 25 mcg Melatonin (Melatonin) 5 mg PO HS PRN PRN Reason: INSOMNIA - Objective Vital Signs: Vital Signs Temperature 98.2 F 11/14/17 10:38 Pulse Rate 82 11/14/17 10:38 Respiratory Rate 20 11/14/17 10:38 Blood Pressure 115/79 11/14/17 10:38 O2 Sat by Pulse Oximetry (%) 98 11/12/17 21:00 Constitutional: Yes: Calm Eyes: Yes: Conjunctiva Clear HENT: Yes: Atraumatic Cardiovascular: Yes: S1, S2 Respiratory: Yes: CTA Bilaterally Gastrointestinal: Yes: Normal Bowel Sounds, Soft Genitourinary: Yes: WNL Musculoskeletal: Yes: Muscle Weakness Edema: Yes Edema: LLE: 1+, RLE: 1+ Neurological: Yes: Oriented Psychiatric: Yes: Oriented Labs: CBC, BMP 11/07/17 13:40 11/14/17 10:00 INR, PTT INR 1.39 (0.82-1.09) H 11/07/17 13:40 Problem List - Problems (1) Chronic kidney disease (CKD) stage G3a/A2, moderately decreased glomerular filtration rate (GFR) between 45-59 mL/min/1.73 square meter and albuminuria creatinine ratio between 30-299 mg/g Code(s): N18.3 - CHRONIC KIDNEY DISEASE, STAGE 3 (MODERATE) (2) Hyperkalemia Code(s): E87.5 - HYPERKALEMIA (3) Acute exacerbation of CHF (congestive heart failure) Code(s): I50.9 - HEART FAILURE, UNSPECIFIED (4) COPD (chronic obstructive pulmonary disease) Code(s): J44.9 - CHRONIC OBSTRUCTIVE PULMONARY DISEASE, UNSPECIFIED Assessment/Plan Current Medications Generic Name Dose Route Start Last Admin Trade Name Freq PRN Reason Stop Dose Admin Acetaminophen 500 mg 11/10/17 12:38 11/10/17 14:15 Tylenol - PO 500 mg Q4H PRN Administration HEADACHE Alprazolam 0.5 mg 11/07/17 22:00 11/13/17 21:12 Xanax - PO 0.5 mg HS JEREMÍAS Administration Aspirin 81 mg 11/08/17 10:00 11/14/17 10:39 Ecotrin - PO 81 mg DAILY JEREMÍAS Administration Carvedilol 3.125 mg 11/07/17 22:00 11/14/17 10:39 Coreg - PO 3.125 mg BID JEREMÍAS Administration Furosemide 40 mg 11/13/17 14:00 11/14/17 06:28 Lasix - PO 40 mg BID@0600,1400 JEREMÍAS Administration Levothyroxine Sodium 25 mcg 11/10/17 12:00 11/14/17 06:28 Synthroid - PO 25 mcg DAILY@0700 JEREMÍAS Administration Melatonin 5 mg 11/11/17 15:08 Melatonin PO HS PRN INSOMNIA Impression 1. CKD 2. DM 3. CHF 4. fluid overload 5. LV dysfunction s/p AICD 6. hypothyroidism 7. complex solid renal mass Plan - cont lasix BID - will need volume status to be evaluated in NH - cont to check daily weights - will need to check bmp - discussed with medical team - renal mass persists on ultrasound and will need to be evaluated, should see urology - elevate legs when sitting - monitor volume status - will follow Dr Ashby
[2017-11-14 15:18] VITALS: BP 124/62; TEMP 97.4
== END 2017-11-14 16:22 | DRG 291 ==
LOC: JER 12:12 → JERBED 16:26 → J7W 11-08 19:15 → OBSVTOIN 11-11 17:25
PROVIDERS: ADMIT Specialist; ATTEND Specialist
DX: I13.0 Hypertensive heart and chronic kidney disease with heart failure and stage 1 through stage 4 chronic kidney disease, or unspecified chronic kidney disease (principal); I50.21 Acute systolic (congestive) heart failure; J84.9 Interstitial pulmonary disease, unspecified; E11.22 Type 2 diabetes mellitus with diabetic chronic kidney disease; N18.3 Chronic kidney disease, stage 3 (moderate); I25.10 Atherosclerotic heart disease of native coronary artery without angina pectoris; I25.2 Old myocardial infarction; Z95.1 Presence of aortocoronary bypass graft; E78.5 Hyperlipidemia, unspecified; Z95.810 Presence of automatic (implantable) cardiac defibrillator; R62.7 Adult failure to thrive; E87.5 Hyperkalemia; Z91.81 History of falling; J44.9 Chronic obstructive pulmonary disease, unspecified; E87.70 Fluid overload, unspecified; H91.93 Unspecified hearing loss, bilateral; E06.3 Autoimmune thyroiditis; E86.0 Dehydration; R42 Dizziness and giddiness
CPT/HCPCS: 36415; 71046-TC-FY; 76536-TC; 76775-TC; 76856-TC; 80048; 80053; 81003; 81015; 82550; 83735; 83880; 84439; 84443; 84481; 84484; 85025; 85610; 87086; 93005; 93010; 93970-TC; 97116-GP; 97161-GP; 99285-25; G0378

== ENCOUNTER 2017-11-21 12:27 | Emergency (ER) | payer OTHER ==
[2017-11-21 12:37] VITALS: TEMP 97.3; BMI 27.2
--- NOTE | 2017-11-21 12:43 | PDOC ---
History of Present Illness - History of Present Illness Initial Comments: 11/21/17 12:49 87 yo M with h/o CAD, MD, CABG s/p Stents, CHF, AICD, HTN, HLD, CKD, who presents with stable R hand numbness. Patient reports waking up this AM with right hand numbness and weakness. Denies left leg or face weakness, facial droop , slurred speech. Also endorses worsening BL LE edema and pain x 1 week. Reports being compliant with . Denies cough, SOB, Hobson, chest pain, N/V, F/C, abdominal pain, urinary complaints, diarrhea, constipation. Dr. Arias PMD. Denies alcohol or tobacco use. <Duane Lowery - Last Filed: 11/21/17 17:08> <Hung Field - Last Filed: 11/21/17 17:20> - General Chief Complaint: Pain Stated Complaint: ARM PAIN Time Seen by Provider: 11/21/17 12:40 Past History - Past Medical History Anemia: No Asthma: No Cancer: No Cardiac Disorders: Yes (CABG (5 years ago), CAD, MD w/ stent) CVA: No COPD: Yes CHF: Yes Dementia: No Diabetes: No GI Disorders: No Disorders: No HTN: Yes Hypercholesterolemia: Yes Liver Disease: No Psychiatric Problems: Yes (anxiety, insomnia) Seizures: No Thyroid Disease: No - Surgical History Abdominal Surgery: No Appendectomy: No Cardiac Surgery: Yes (OPEN HEART SX, cardiac stent 05/30, AICD 05/30) Cholecystectomy: No Lung Surgery: No Neurologic Surgery: Yes Orthopedic Surgery: No - Immunization History Immunization Up to Date: Yes - Suicide/Smoking/Psychosocial Hx Smoking Status: No Smoking History: Former smoker Have you smoked in the past 12 months: No Number of Cigarettes Smoked Daily: 0 If you are a former smoker, when did you quit?: 35 years ago Cigars Per Day: 0 Information on smoking cessation initiated: No Hx Alcohol Use: No Drug/Substance Use Hx: No Substance Use Type: None Hx Substance Use Treatment: No <Duane Lowery - Last Filed: 11/21/17 17:08> <Hung Field - Last Filed: 11/21/17 17:20> - Past Medical History Allergies/Adverse Reactions: Allergies Allergy/AdvReac Type Severity Reaction Status Date / Time amoxicillin trihydrate AdvReac Mild gi upset Verified 11/21/17 12:35 [From Augmentin] atorvastatin calcium AdvReac Mild gi upset Verified 11/21/17 12:35 [From Lipitor] potassium clavulanate AdvReac Mild gi upset Verified 11/21/17 12:35 [From Augmentin] Home Medications: Ambulatory Orders Clopidogrel Bisulfate [Plavix -] 75 mg PO AM #30 tab 06/21/17 Aspirin [Ecotrin] 81 mg PO DAILY #30 tablet. 06/30/17 Albuterol 0.083% Nebulizer Lena [Ventolin 0.083% Nebulizer Soln -] 1 amp NEB TIDR PRN #0 amp 08/09/17 Acetaminophen [Tylenol .Extra-Strength -] 500 mg PO Q4H PRN tablet 11/14/17 Alprazolam [Xanax] 0.5 mg PO HS #30 tablet MDD 0.5 mg 11/14/17 Aspirin Coated [Ecotrin -] 81 mg PO DAILY tablet.ec 11/14/17 Carvedilol [Coreg -] 3.125 mg PO BID tablet 11/14/17 Furosemide [Lasix -] 40 mg PO BID@0600,1400 tablet 11/14/17 Levothyroxine [Synthroid -] 25 mcg PO DAILY@0700 tablet 11/14/17 Melatonin 5 mg PO HS PRN tab 11/14/17 Review of Systems - Review of Systems Comments:: 11/21/17 12:43 GENERAL/CONSTITUTIONAL: No fever or chills. No weakness. HEAD, EYES, EARS, NOSE AND THROAT: No change in vision. No ear pain or discharge. No sore throat.- CARDIOVASCULAR: No chest pain or shortness of breath RESPIRATORY: No cough, wheezing, or hemoptysis. GASTROINTESTINAL: No nausea, vomiting, diarrhea or constipation. GENITOURINARY: No dysuria, frequency, or change in urination. MUSCULOSKELETAL: + leg pain and R arm weakness. No neck or back pain. SKIN: No rash NEUROLOGIC: No headache, vertigo, loss of consciousness, or change in strength/ sensation. ENDOCRINE: No increased thirst. No abnormal weight change HEMATOLOGIC/LYMPHATIC: No anemia, easy bleeding, or history of blood clots. ALLERGIC/IMMUNOLOGIC: No hives or skin allergy. <Duane Lowery - Last Filed: 11/21/17 17:08> *Physical Exam - Vital Signs Last Vital Signs Temp Pulse Resp BP Pulse Ox 97.3 F L 92 H 18 130/70 100 11/21/17 12:35 11/21/17 12:35 11/21/17 12:35 11/21/17 12:35 11/21/17 12:35 - Physical Exam Comments: 11/21/17 12:43 GENERAL: Awake, alert, and fully oriented, in no acute distress HEAD: No signs of trauma, normocephalic, atraumatic EYES: PERRLA, EOMI, sclera anicteric, conjunctiva clear ENT: Auricles normal inspection, hearing grossly normal, nares patent, oropharynx clear without exudates. Moist mucosa NECK: Normal ROM, supple, no lymphadenopathy, JVD, or masses LUNGS: No distress, speaks full sentences, clear to auscultation bilaterally HEART: Regular rate and rhythm, normal S1 and S2, no murmurs, rubs or gallops, peripheral pulses normal and equal bilaterally. ABDOMEN: Soft, nontender, normoactive bowel sounds. No guarding, no rebound. No masses EXTREMITIES : Normal inspection, Normal range of motion, no edema. No clubbing or cyanosis. NEUROLOGICAL: Cranial nerves II through XII grossly intact. Normal speech, normal gait, no focal sensorimotor deficits. Left hand 4/5. Normal VERO, absent dysmetria on FTN. SKIN: Warm, Dry, normal turgor, no rashes or lesions noted. <Duane Lowery - Last Filed: 11/21/17 17:08> - Vital Signs Last Vital Signs Temp Pulse Resp BP Pulse Ox 97.3 F L 98 H 20 134/76 99 11/21/17 12:35 11/21/17 17:16 11/21/17 17:16 11/21/17 17:16 11/21/17 17:16 <Hung Field - Last Filed: 11/21/17 17:20> ED Treatment Course - LABORATORY CBC & Chemistry Diagram: 11/21/17 14:35 11/21/17 14:35 <Duane Lowery - Last Filed: 11/21/17 17:08> - LABORATORY CBC & Chemistry Diagram: 11/21/17 14:35 11/21/17 14:35 - ADDITIONAL ORDERS Additional order review: Laboratory Results 11/21/17 11/21/17 14:35 14:35 PT with INR 16.40 H INR 1.45 H Sodium 132 L Potassium 4.2 Chloride 95 L Carbon Dioxide 26 Anion Gap 11 BUN 50 H Creatinine 1.6 H Creat Clearance w eGFR 41.09 Random Glucose 104 Calcium 8.5 Total Bilirubin 1.9 H D AST 47 H D ALT 22 Alkaline Phosphatase 158 H Creatine Kinase 106 Troponin I 0.03 D B-Natriuretic Peptide 98758 H Total Protein 7.7 Albumin 3.8 11/21/17 14:35 RBC 4.10 MCV 83.8 MCHC 32.6 RDW 23.1 H MPV 9.8 Neutrophils % 66.9 Lymphocytes % 16.1 Monocytes % 12.1 H Eosinophils % 3.6 Basophils % 1.3 - Medications Given in the ED: ED Medications Discontinued Medications Generic Name Dose Route Start Last Admin Trade Name Freq PRN Reason Stop Dose Admin Furosemide 40 mg 11/21/17 15:15 11/21/17 16:26 Lasix - PO 11/21/17 15:16 40 mg ONCE ONE Administration <Ou,Hung - Last Filed: 11/21/17 17:20> Medical Decision Making - Medical Decision Making 11/21/17 15:10 87 yo M with h/o CAD, MD, CABG s/p Stents and CABG, CHF, AICD, HTN, HLD, CKD, who reports waking up this AM with right hand numbness and weakness. Denies left leg or face weakness, facial droop, slurred speech. Also endorses worsening BL LE edema and pain x 1 week. Reports being compliant with Fureosomide 40 mg PO QD BID. Denies cough, SOB, Hobson, chest pain, palpitations, N /V, F/C, abdominal pain, urinary complaints, diarrhea, constipation. Dr. Arias PMD. Physical exam with 4/5 left hand strength. No other gross motor or neuro deficits.+ L>R pitting edmea. Temp 97.3. Will assess for underlying electrolyte/metabolic disturbance vs. CVA/TIA as secondary cause of hand weakness. Pre hospital [place] score 0 NIHSS: 1 ED Course: CBC, CMP, Cardiac, BNP, UA EKG, CXR, CT HEAD NON CON Fureosomide 40 mg PO 11/21/17 15:57 CBC: Unremarkable CR~1.6 ( 1.7 BL) 11/21/17 15:58 BNP 45137 Trop Neg CXR: Cardiomegaly with no evidence of heart failure. Questionable RUL infiltrate. Patient stable breathing 95% O2 on RA, with absent resp distress. 11/21/17 16:33 CT HEAD: Unremarkable 11/21/17 17:08 Patient stable and ready for d/c with return precautions. Advised to f/u with neuro. <Duane Lowery - Last Filed: 11/21/17 17:08> *DC/Admit/Observation/Transfer - Discharge Dispostion Admit: No - Attestations Physician Attestion: 11/21/17 16:13 I attest to the information provided in this note. <Duane Lowery - Last Filed: 11/21/17 17:08> <Hung Field - Last Filed: 11/21/17 17:20> Diagnosis at time of Disposition: Hand numbness - Discharge Dispostion Disposition: HOME Condition at time of disposition: Stable - Referrals Referrals: Anmol Casey MD [Primary Care Provider] - Grey Harry MD [Staff Physician] - - Patient Instructions Printed Discharge Instructions: DI for Numbness/tingling Additional Instructions: Call the number provided to make an appointment with our neurologist for further evaluation of your hand numbness and pain. You may have carpal tunnel syndrome. Please return to the emergency department with any new or worsening concerns or complaints. Please follow up with your primary medical doctor within the next 24 -72 hours. - Post Discharge Activity
[2017-11-21 14:58] LABS: BASO % 1.3 % (0-2.0); EOS % 3.6 % (0-4.5); HEMATOCRIT 34.4 % (35.4-49); HEMOGLOBIN 11.2 GM/dL (11.7-16.9); LYMPH % 16.1 % (8-40); MCH 27.3 pg (25.7-33.7); MCHC 32.6 g/dl (32.0-35.9); MEAN CELL VOLUME 83.8 fl (80-96); MEAN PLT VOLUME 9.8 fl (7.5-11.1); MONO % 12.1 % (3.8-10.2); NEUT % 66.9 % (42.8-82.8); PLATELET COUNT 128 K/MM3 (134-434); RDW 23.1 % (11.9-15.9); WHITE BLOOD COUNT 5.5 K/mm3 (4.0-10.0)
[2017-11-21] MEDS ORDERED: FUROSEMIDE 40 MG TABLET (FP) PO ONE (15:15)
[2017-11-21 15:29] LABS: INR 1.45 (0.82-1.09); PROTHROMBIN TIME (PATIENT) 16.4 SEC (9.98-11.88)
[2017-11-21 15:32] LABS: ALBUMIN 3.8 g/dl (3.4-5.0); ANION GAP 11 (8-16); BILIRUBIN,TOTAL 1.9 mg/dL (0.2-1.0); BLOOD UREA NITROGEN 50 mg/dL (7-18); CALCIUM 8.5 mg/dL (8.5-10.1); CHLORIDE 95 mmol/L (98-107); CO2 26 mmol/L (21-32); CREATININE 1.6 mg/dL (0.7-1.3); GLUCOSE,RANDOM 104 mg/dL (74-106); SGPT/ALT 22 U/L (12-78); SODIUM 132 mmol/L (136-145); TOT PROT 7.7 g/dl (6.4-8.2)
[2017-11-21 15:49] LABS: ALK PHOS 158 U/L (45-117); POTASSIUM 4.2 mmol/L (3.5-5.1); SGOT/AST 47 U/L (15-37)
[2017-11-21 15:50] LABS: N-TERMINAL BNP 46444 pg/ml (5-450)
[2017-11-21] MEDS ORDERED: FUROSEMIDE 40 MG TABLET (FP) ONE (16:19)
--- NOTE | 2017-11-21 17:06 | PDOC ---
Attending Attestation - Resident Resident Name: Duane Lowery - ED Attending Attestation I have performed the following: I have examined & evaluated the patient, The case was reviewed & discussed with the resident, I agree w/resident's findings & plan, Exceptions are as noted - HPI HPI: 11/21/17 17:03 87 M with h/o CAD, MS/CABG, CHF, AICD, HTN, HLD, CKD, presenting with 1 day of R hand pain and numbness. Pt states that he awoke with pain in his R hand. He notes numbness extending from the wrist down to his fingers. Denies weakness or numbness in his elbow, biceps, tricpeps, or shoulders. Denies weakness/numbness/ tingling in any other extremity. Denies neck pain. Denies OLIVEIRA. Denies F/C. Denies CP/SOB. - Physicial Exam PE: 11/21/17 17:04 "GENERAL: Awake, alert, and fully oriented, in no acute distress HEAD: No signs of trauma EYES: PERRLA, EOMI, sclera anicteric, conjunctiva clear ENT: Auricles normal inspection, hearing grossly normal, nares patent, oropharynx clear without exudates. Moist mucosa NECK: Nontender, no stepoffs, Normal ROM, supple, no lymphadenopathy, JVD, or masses LUNGS: Breath sounds equal, clear to auscultation bilaterally. No wheezes, and no crackles HEART: Regular rate and rhythm, normal S1 and S2, no murmurs, rubs or gallops ABDOMEN: Soft, nontender, normoactive bowel sounds. No guarding, no rebound. No masses EXTREMITIES: Normal range of motion, no edema. No clubbing or cyanosis. No cords, erythema, or tenderness NEUROLOGICAL: Cranial nerves II through XII intact. 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 " - Medical Decision Making 11/21/17 17:05 87 M with isolated R hand numbness and weakness. Likely carpal tunnel vs peripheral neuropathy. Pt's symptoms do not fit stroke distribution. Not consistent with cervical radiculopathy either, especially given lack of neck pain. No evidence of infectious process on exam. No swelling/erythema/ tenderness. - f/u neurology 11/21/17 17:08 Pt's labs at baseline CTH negative. Pt reports improvement in pain without intervention.
[2017-11-21 18:12] VITALS: BP 142/68; PULSE 78
--- NOTE | 2017-11-22 14:16 | EKG ---
Test Reason : Blood Pressure : / mmHG Vent. Rate : 093 BPM Atrial Rate : 093 BPM P-R Int : 176 ms QRS Dur : 136 ms QT Int : 416 ms P-R-T Axes : 065 -55 118 degrees QTc Int : 517 ms SINUS RHYTHM WITH OCCASIONAL PREMATURE VENTRICULAR COMPLEXES LEFT AXIS DEVIATION LEFT BUNDLE BRANCH BLOCK ABNORMAL ECG WHEN COMPARED WITH ECG OF 07-NOV-2017 13:43, T WAVE INVERSION LESS EVIDENT IN LATERAL LEADS Confirmed by MALINDA OWENS MD ([id number]) on 11/22/2017 2:16:38 PM Referred By: Confirmed By:MALINDA OWENS MD
== END 2017-11-21 18:12 | disposition home or self-care (01) ==
LOC: JER 12:27
DX: R20.2 Paresthesia of skin (principal); M62.81 Muscle weakness (generalized); I25.810 Atherosclerosis of coronary artery bypass graft(s) without angina pectoris; I13.10 Hypertensive heart and chronic kidney disease without heart failure, with stage 1 through stage 4 chronic kidney disease, or unspecified chronic kidney disease; N18.1 Chronic kidney disease, stage 1; Z95.1 Presence of aortocoronary bypass graft; Z95.5 Presence of coronary angioplasty implant and graft; Z87.891 Personal history of nicotine dependence; E78.00 Pure hypercholesterolemia, unspecified; F41.9 Anxiety disorder, unspecified; G47.00 Insomnia, unspecified; Z95.810 Presence of automatic (implantable) cardiac defibrillator; I25.2 Old myocardial infarction
CPT/HCPCS: 36415; 70450-TC; 71045-TC; 80053; 82550; 83880; 84484; 85025; 85610; 93005; 93010; 99283-25